=== PATIENT | female | born 1940 | race Caucasian/White ===

== ENCOUNTER 2020-11-20 11:25 | Inpatient (IN) | payer MEDICARE, BC, SELFPAY ==
[2020-11-20 11:31] VITALS: BP 184/96; PULSE 84; RESP 18; TEMP 36.7; O2SAT 100; BMI 22.1
--- NOTE | 2020-11-20 12:37 | ECG_ITS ---
Test Reason : HIGH BLOOD PRESSURE Blood Pressure : / mmHG Vent. Rate : 087 BPM Atrial Rate : 087 BPM P-R Int : 156 ms QRS Dur : 072 ms QT Int : 382 ms P-R-T Axes : 071 009 059 degrees QTc Int : 459 ms Normal sinus rhythm Biatrial enlargement Septal infarct , age undetermined Abnormal ECG When compared with ECG of 14-MAR-2019 16:36, Septal infarct is now Present Referred By: Leela Hall Electronically Signed By:ANGELICA MONTEIRO
--- NOTE | 2020-11-20 12:38 | ED_ITS ---
HPI - Anxiety General Chief Complaint: Anxiety <FIOR Morales - Last Filed: 11/20/20 22:53> Stated Complaint: crisis <FIOR Morales - Last Filed: 11/20/20 22:53> Time Seen by Provider: 11/20/20 12:14 <FIOR Morales - Last Filed: 11/20/20 22:53> Source: patient, family, RN notes reviewed and old records reviewed <FIOR Morales - Last Filed: 11/20/20 22:53> Mode of arrival: ambulatory <FIRO Morales - Last Filed: 11/20/20 22:53> Limitations: no limitations <FIOR Morales - Last Filed: 11/20/20 22:53> History of Present Illness HPI narrative: 80-year-old female here today for on anxiety. Patient has been having increase in anxiety in the past few weeks. She reports to be waking up drenched in sweat feeling anxious. She is afraid that she will hurt her , does not have any plan. Patient has a history of major depression with anxiety. Previously treated with ECT by Dr. Chambers. Last inpatient admission in 2019 with ECT as an inpatient. Patient was discharged home and had outpatient ECTs on till August of 2019. She reports that in 2019 she did not want to come into the hospital because she was afraid of getting COVID. She has not seen any therapist. Was only getting prescribed <FIOR Morales - Last Filed: 11/20/20 22:53> Related Data Home Medications: Previous Rx's Medication Instructions Recorded lorazepam 0.5 mg PO BID PRN #20 tab 11/26/20 quetiapine 25 mg PO BID@0830,1430 30 Days #90 11/26/20 tab quetiapine 150 mg PO BEDTIME 30 Days #90 tab 11/26/20 venlafaxine 300 mg PO DAILY 30 Days #60 cap 11/26/20 <FIOR Morales - Last Filed: 11/20/20 22:53> Allergies/Adverse Reactions: Allergies Allergy/AdvReac Type Severity Reaction Status Date / Time No Known Allergies Allergy Verified 11/20/20 11:36 [No Known Allergies*] <FIOR Morales - Last Filed: 11/20/20 22:53> Review of Systems Review of Systems: Constitutional : No Weight loss, No Fever, No Chills, No Night Sweats, No Fatigue, No Malaise ENT/Mouth : No Hearing loss, No Ear Pain, No Nasal Congestion, No Sinus Pain, No Hoarseness, No sore throat, No Rhinorrhea, No Swallowing Difficulty Eyes: No Eye Pain, No Swelling, No Redness, No Foreign Body, No Discharge, No Vision Changes Cardiovascular : No Chest Pain, No SOB, No Dyspnea on Exertion, No Orthopnea, No Edema, No Palpitations Respiratory : No Cough, No Sputum, No Wheezing, No Smoke Exposure, No Dyspnea Gastrointestinal : No Nausea, No Vomiting, No Diarrhea, No Constipation, No abdominal Pain, No Hematochezia, No Melena Genitourinary : no irregular bleeding, No Dysuria, No Urinary Frequency, No Hematuria, No Urinary Incontinence, No Urgency, No Flank Pain, No Urinary Flow Changes, No Hesitancy Musculoskeletal : No joint pain, No Myalgias, No Joint Swelling Skin : No Skin Lesions, No rash Neuro : No Weakness, No Numbness, No Paresthesias, No Loss of Consciousness, No Dizziness, No Headache Psych : Anxiety/Panic, Depression, No SI/AH/VH, states that wants to hurt her , no plan. No Social Issues, Heme/Lymph: No Bruising, No Bleeding,No Lymphadenopathy Endocrine : No Polyuria, No Polydipsia, No Temperature Intolerance <FIOR Morales - Last Filed: 11/20/20 22:53> Yes all other systems are reviewed and are negative <FIOR Morales - Last Filed: 11/20/20 22:53> [facility] Past Medical History Medical History: Medical History (Updated 12/04/20 @ 00:02 by Mandy Flores) Depression Major depressive disorder, recurrent severe without psychotic features OCD (obsessive compulsive disorder) S/P ECT (electroconvulsive therapy) <FIOR Morales - Last Filed: 11/20/20 22:53> Surgical History: Surgical History No history of previous surgery <AGA Morales-BC - Last Filed: 11/20/20 22:53> Family History Family History: Family History (Updated 11/22/20 @ 16:21 by RONI Villalobos) Mother CHF (congestive heart failure) <SHARONDA MoralesBC - Last Filed: 11/20/20 22:53> Social History Social History: Social History Household Members: Spouse Housing: House Do you presently have visiting nurse or other home services: No service: No Sexual orientation: Straight/Heterosexual <SHARONDA MoralesBC - Last Filed: 11/20/20 22:53> Physical Exam Vital Signs: Vital Signs: Last Vital Signs Temp 97.9 F 11/26/20 06:30 Pulse 64 11/26/20 06:30 Resp 16 11/26/20 06:30 BP 129/58 L 11/26/20 06:30 Pulse Ox 97 11/26/20 06:30 Body Mass Index 22.1 <AGA Morales-BC - Last Filed: 11/20/20 22:53> Vital Signs: Last Vital Signs Temp 97.9 F 11/26/20 06:30 Pulse 64 11/26/20 06:30 Resp 16 11/26/20 06:30 BP 129/58 L 11/26/20 06:30 Pulse Ox 97 11/26/20 06:30 Body Mass Index 22.1 <RONI Saenz - Last Filed: 11/21/20 08:30> Vital Signs: Last Vital Signs Temp 97.9 F 11/26/20 06:30 Pulse 64 11/26/20 06:30 Resp 16 11/26/20 06:30 BP 129/58 L 11/26/20 06:30 Pulse Ox 97 11/26/20 06:30 Body Mass Index 22.1 <Jem Neves MD - Last Filed: 12/23/20 06:19> Const: General: cooperative, healthy appearing and comfortable <Leela D Isabel, SURFACE PLATE INSPECTOR-BC - Last Filed: 11/20/20 22:53> Nutritional Appearance: average body habitus <Leela Sarai Hall SURFACE PLATE INSPECTOR-BC - Last Filed: 11/20/20 22:53> Orientation/consciousness: patient oriented x3 <LeelaSARKIS TylerP-BC - Last Filed: 11/20/20 22:53> Limitations: no limitations <Leela Sarai Pryoro SURFACE PLATE INSPECTOR-BC - Last Filed: 11/20/20 22:53> HENMT: Head: Yes normal to inspection <Leela D Isabel, SURFACE PLATE INSPECTOR-BC - Last Filed: 11/20/20 22:53> Ears: hearing grossly normal bilaterally <Leela D Isabel, SURFACE PLATE INSPECTOR-BC - Last Filed: 11/20/20 22:53> General nose exam: Normal external nose present <Leela D Isabel SURFACE PLATE INSPECTOR-BC - Last Filed: 11/20/20 22:53> Face and sinus: Yes normal facial exam <Leelabrunilda Hall SURFACE PLATE INSPECTOR-BC - Last Filed: 11/20/20 22:53> Mouth: Normal oral and palatal mucosa present <Leela D Isabel, SURFACE PLATE INSPECTOR-BC - Last Filed: 11/20/20 22:53> Throat: Yes posterior oropharynx normal <Leela Sarai Hall, SURFACE PLATE INSPECTOR-BC - Last Filed: 11/20/20 22:53> Eyes: General: appearance normal, both eyes and all related structures <Leela Sarai Hall SURFACE PLATE INSPECTOR-BC - Last Filed: 11/20/20 22:53> Eyelids: Yes eyelids normal <Leela D Isabel, SURFACE PLATE INSPECTOR-BC - Last Filed: 11/20/20 22:53> Conjunctivae: conjunctivae normal <Leela D Isabel, SURFACE PLATE INSPECTOR-BC - Last Filed: 11/20/20 22:53> Sclerae: sclerae normal <Leela D Isabel, SURFACE PLATE INSPECTOR-BC - Last Filed: 11/20/20 22:53> Pupils: Equal, round and reactive pupils present <Leela D Isabel, SURFACE PLATE INSPECTOR-BC - Last Filed: 11/20/20 22:53> Neck: Neck: Yes normal visual inspection, Yes full ROM, Yes no lym phadenopathy, Yes trachea midline and Yes supple <AGA Morales-BC - Last Filed: 11/20/20 22:53> Thyroid: Thyroid normal <AGA Morales-BC - Last Filed: 11/20/20 22:53> Lymphatic: no lymphadenopathy noted <AGA Morales-BC - Last Filed: 11/20/20 22:53> Chest: Chest palpation & inspection: normal inspection of the chest <AGA Morales-BC - Last Filed: 11/20/20 22:53> Resp: Effort & Inspection: normal respiratory effort and able to speak in complete sentences <AGA Morales-BC - Last Filed: 11/20/20 22:53> Auscultation: clear to auscultation bilaterally <AGA Morales-BC - Last Filed: 11/20/20 22:53> Cardio: Jugular venous distension: no JVD <AGA Morales-BC - Last Filed: 11/20/20 22:53> Rate: regular rate <AGA Morales-BC - Last Filed: 11/20/20 22:53> Rhythm: regular rhythm <AGA Morales-BC - Last Filed: 11/20/20 22:53> Heart sounds: S1 normal heart sound present, S2 normal heart sound present, no gallops, no murmurs and no rubs <AGA Morales-BC - Last Filed: 11/20/20 22:53> Peripheral pulses: Peripheral pulses 2+ throughout <SARKIS MoralesP-BC - Last Filed: 11/20/20 22:53> GI: Inspection: Yes normal to inspection and No distended <AGA Morales-BC - Last Filed: 11/20/20 22:53> Palpation (GI): No hepatosplenomegaly present and No Rebound tenderness present <SARKIS MoralesP-BC - Last Filed: 11/20/20 22:53> Percussion: Yes normal to percussion <Leela D Isabel, SURFACE PLATE INSPECTOR-BC - Last Filed: 11/20/20 22:53> Auscultation: normal bowel sounds <Leela Hall SURFACE PLATE INSPECTOR-BC - Last Filed: 11/20/20 22:53> Back/Spine/Pelvis: Cervical Spine: cervical ROM normal and No cervical muscular tenderness <SARKIS MoralesP-BC - Last Filed: 11/20/20 22:53> Thoracic/Lumbar Spine: thoracic and lumbar spine normal to inspection <SARKIS MoralesP-BC - Last Filed: 11/20/20 22:53> Skin: General skin exam: no rashes or lesions noted, elasticity normal and turgor normal <SARKIS MoralesP-BC - Last Filed: 11/20/20 22:53> Neuro: General: patient oriented x3 <SARKIS MoralesP-BC - Last Filed: 11/20/20 22:53> Cranial nerves: Yes Equal, round and reactive pupils present <SARKIS MoralesP-BC - Last Filed: 11/20/20 22:53> Extrem: General: Yes normal to inspection, Yes full ROM and Yes capillary refill normal <SARKIS MoralesP-BC - Last Filed: 11/20/20 22:53> Psych: Appearance: grossly normal <AGA Morales-BC - Last Filed: 11/20/20 22:53> Mental Status: mental status grossly normal <Leela Pryordinesh SURFACE PLATE INSPECTOR-BC - Last Filed: 11/20/20 22:53> Speech and movement: Normal speech and movement present <Leela Hall SURFACE PLATE INSPECTOR-BC - Last Filed: 11/20/20 22:53> Affect: normal affect <Leela Pryordinesh SURFACE PLATE INSPECTOR-BC - Last Filed: 11/20/20 22:53> Attitude: cooperative <Leela Pryordinesh SURFACE PLATE INSPECTOR-BC - Last Filed: 11/20/20 22:53> Thought process: Normal thought process present <Leela Pryordinesh SURFACE PLATE INSPECTOR-BC - Last Filed: 11/20/20 22:53> Insight: Good insight present (Psych) <LeelaSHARONDA TylerBC - Last Filed: 11/20/20 22:53> Course Course Course Narrative: 80-year-old female here today for and anxiety. Patient reports that in the last few weeks she has been waking up during the night with severe anxiety, with night sweats. She is severely depressed has thoughts of hurting her however she does not have a plan of how. Patient has a very supportive who is at her bedside. She reports that she had been admitted previously to [facility] and she received inpatient ECT therapy. She states that she had few therapy after being discharged as outpatient. Patient was seen by Dr. Chambers. Her last treatment was in August of 2019. Due to COVID patient was afraid to come into the hospital for more treatment. Patient reports that they were very helpful. Patient denies SI. Denies any chest pain, SOB with or without exertion, PND, presyncope, syncope. Will medically clear her and have [facility] services talked to her about possible treatment. Patient is agreeable to plan of care. Patient cooperative with at the bedside. <FIOR Morales - Last Filed: 11/20/20 22:53> I have reviewed the chart <Jem Neves MD - Last Filed: 12/23/20 06:19> Reevaluation(s) Reevaluation #1: Patient resting. will be going home tonight. Patient will be seen in the morning by Dr. Chambers. Patient denies any suicidal or homicidal thoughts. Cooperative and pleasant. Seen by social work. Denies any CP, abdominal discomfort. Vital signs stable. <FIOR Morales - Last Filed: 11/20/20 22:53> Reevaluation #2: Patient was moved to [facility] to bed 5. Cooperative and agreeable to plan of care requesting mild sedative to help her go to sleep. She received low-dose benzodiazepine earlier this afternoon and did very well with that. She may get another dose tonight to help her sleep. Vital signs continue to be stable, lung sounds clear, neuro is intact. Report given to [facility] MENTAL HEALTH CLINICIAN <FIOR Morales - Last Filed: 11/20/20 22:53> MDM - Anxiety Lab Data Result diagrams: : 11/20/20 13:20 11/20/20 13:20 <Leela Hall, [facility]- - Last Filed: 11/20/20 22:53> Labs: Lab Results 11/20/20 11/20/20 11/20/20 Range/Units 13:20 13:20 19:35 WBC 5.5 (4.8-10.8) X10*3/uL RBC 4.60 (4.20-5.50) X10*6/uL Hgb 13.9 (12.0-16.0) g/dl Hct 40.9 (37-47) % MCV 88.9 (80-98) fL MCH 30.2 (27.0-33.0) pg MCHC 34.0 (31.0-35.0) g/dl RDW 12.5 (11.0-16.0) % Plt Count 201 (160-400) X10*3/uL MPV 10.9 (9.4-12.3) fL Immature Gran % (Auto) 0.2 (0.0-0.4) % Neut % (Auto) 64.1 (45-73) % Lymph % (Auto) 27.8 (20-40) % [place] % (Auto) 6.9 (2-11) % Eos % (Auto) 0.5 (0-4) % Baso % (Auto) 0.5 (0-2) % Lymph # (Auto) 1.5 (1.2-4.9) X10*3/uL [place] # (Auto) 0.4 (0.1-1.2) X10*3/uL Eos # (Auto) 0.0 (0.0-0.4) X10*3/uL Baso # (Auto) 0.0 (0.0-0.2) X10*3/uL Abs Immat Gran (auto) 0.01 (0.00-0.03) X10*3/uL Absolute Neuts (auto) 3.6 (2.0-8.3) X10*3/uL Absolute Nucleated RBC 0.000 (0.0-0.012) X10*3/uL Nucleated RBC % (auto) 0.0 (0.0-0.2) /100WBC Sodium 136 (135-145) mmol/L Potassium 4.0 (3.3-5.1) mmol/L Chloride 101 (96-108) mmol/L Carbon Dioxide 26 (22-29) mmol/L Anion Gap 13 (12-20) BUN 16 (9-16) mg/dL Creatinine 1.05 (0.5-1.4) mg/dL Estim Creat Clear Calc 36.5 Estimated GFR 51 Random Glucose 176 H (60-115) mg/dL Calcium 9.3 (8.4-10.2) mg/dL Salicylates < 5.0 L (15-30) mg/dL Urine Opiates Screen (Not Detect) Acetaminophen < 1 (<30) mcg/mL Ur Barbiturates Screen (Not Detect) Ur Phencyclidine Scrn (Not Detect) Ur Amphetamines Screen (Not Detect) U Benzodiazepines Scrn (Not Detect) Urine Cocaine Screen (Not Detect) U Marijuana (THC) Screen (Not Detect) COVID-19 (FANG) Negative (Negative) COVID-19 Clin Com See Note 11/20/20 Range/Units 19:37 WBC (4.8-10.8) X10*3/uL RBC (4.20-5.50) X10*6/uL Hgb (12.0-16.0) g/dl Hct (37-47) % MCV (80-98) fL MCH (27.0-33.0) pg MCHC (31.0-35.0) g/dl RDW (11.0-16.0) % Plt Count (160-400) X10*3/uL MPV (9.4-12.3) fL Immature Gran % (Auto) (0.0-0.4) % Neut % (Auto) (45-73) % Lymph % (Auto) (20-40) % [place] % (Auto) (2-11) % Eos % (Auto) (0-4) % Baso % (Auto) (0-2) % Lymph # (Auto) (1.2-4.9) X10*3/uL [place] # (Auto) (0.1-1.2) X10*3/uL Eos # (Auto) (0.0-0.4) X10*3/uL Baso # (Auto) (0.0-0.2) X10*3/uL Abs Immat Gran (auto) (0.00-0.03) X10*3/uL Absolute Neuts (auto) (2.0-8.3) X10*3/uL Absolute Nucleated RBC (0.0-0.012) X10*3/uL Nucleated RBC % (auto) (0.0-0.2) /100WBC Sodium (135-145) mmol/L Potassium (3.3-5.1) mmol/L Chloride (96-108) mmol/L Carbon Dioxide (22-29) mmol/L Anion Gap (12-20) BUN (9-16) mg/dL Creatinine (0.5-1.4) mg/dL Estim Creat Clear Calc Estimated GFR Random Glucose (60-115) mg/dL Calcium (8.4-10.2) mg/dL Salicylates (15-30) mg/dL Urine Opiates Screen Not Detected (Not Detect) Acetaminophen (<30) mcg/mL Ur Barbiturates Screen Not Detected (Not Detect) Ur Phencyclidine Scrn Not Detected (Not Detect) Ur Amphetamines Screen Not Detected (Not Detect) U Benzodiazepines Scrn Not Detected (Not Detect) Urine Cocaine Screen Not Detected (Not Detect) U Marijuana (THC) Screen Not Detected (Not Detect) COVID-19 (FANG) (Negative) COVID-19 Clin Com <Leela Hall, SURFACE PLATE INSPECTOR-BC - Last Filed: 11/20/20 22:53> Lab Results 11/20/20 11/20/20 11/20/20 Range/Units 13:20 13:20 19:35 WBC 5.5 (4.8-10.8) X10*3/uL RBC 4.60 (4.20-5.50) X10*6/uL Hgb 13.9 (12.0-16.0) g/dl Hct 40.9 (37-47) % MCV 88.9 (80-98) fL MCH 30.2 (27.0-33.0) pg MCHC 34.0 (31.0-35.0) g/dl RDW 12.5 (11.0-16.0) % Plt Count 201 (160-400) X10*3/uL MPV 10.9 (9.4-12.3) fL Immature Gran % (Auto) 0.2 (0.0-0.4) % Neut % (Auto) 64.1 (45-73) % Lymph % (Auto) 27.8 (20-40) % [place] % (Auto) 6.9 (2-11) % Eos % (Auto) 0.5 (0-4) % Baso % (Auto) 0.5 (0-2) % Lymph # (Auto) 1.5 (1.2-4.9) X10*3/uL [place] # (Auto) 0.4 (0.1-1.2) X10*3/uL Eos # (Auto) 0.0 (0.0-0.4) X10*3/uL Baso # (Auto) 0.0 (0.0-0.2) X10*3/uL Abs Immat Gran (auto) 0.01 (0.00-0.03) X10*3/uL Absolute Neuts (auto) 3.6 (2.0-8.3) X10*3/uL Absolute Nucleated RBC 0.000 (0.0-0.012) X10*3/uL Nucleated RBC % (auto) 0.0 (0.0-0.2) /100WBC Sodium 136 (135-145) mmol/L Potassium 4.0 (3.3-5.1) mmol/L Chloride 101 (96-108) mmol/L Carbon Dioxide 26 (22-29) mmol/L Anion Gap 13 (12-20) BUN 16 (9-16) mg/dL Creatinine 1.05 (0.5-1.4) mg/dL Estim Creat Clear Calc 36.5 Estimated GFR 51 Random Glucose 176 H (60-115) mg/dL Calcium 9.3 (8.4-10.2) mg/dL Salicylates < 5.0 L (15-30) mg/dL Urine Opiates Screen (Not Detect) Acetaminophen < 1 (<30) mcg/mL Ur Barbiturates Screen (Not Detect) Ur Phencyclidine Scrn (Not Detect) Ur Amphetamines Screen (Not Detect) U Benzodiazepines Scrn (Not Detect) Urine Cocaine Screen (Not Detect) U Marijuana (THC) Screen (Not Detect) COVID-19 (FANG) Negative (Negative) COVID-19 Clin Com See Note 11/20/20 Range/Units 19:37 WBC (4.8-10.8) X10*3/uL RBC (4.20-5.50) X10*6/uL Hgb (12.0-16.0) g/dl Hct (37-47) % MCV (80-98) fL MCH (27.0-33.0) pg MCHC (31.0-35.0) g/dl RDW (11.0-16.0) % Plt Count (160-400) X10*3/uL MPV (9.4-12.3) fL Immature Gran % (Auto) (0.0-0.4) % Neut % (Auto) (45-73) % Lymph % (Auto) (20-40) % [place] % (Auto) (2-11) % Eos % (Auto) (0-4) % Baso % (Auto) (0-2) % Lymph # (Auto) (1.2-4.9) X10*3/uL [place] # (Auto) (0.1-1.2) X10*3/uL Eos # (Auto) (0.0-0.4) X10*3/uL Baso # (Auto) (0.0-0.2) X10*3/uL Abs Immat Gran (auto) (0.00-0.03) X10*3/uL Absolute Neuts (auto) (2.0-8.3) X10*3/uL Absolute Nucleated RBC (0.0-0.012) X10*3/uL Nucleated RBC % (auto) (0.0-0.2) /100WBC Sodium (135-145) mmol/L Potassium (3.3-5.1) mmol/L Chloride (96-108) mmol/L Carbon Dioxide (22-29) mmol/L Anion Gap (12-20) BUN (9-16) mg/dL Creatinine (0.5-1.4) mg/dL Estim Creat Clear Calc Estimated GFR Random Glucose (60-115) mg/dL Calcium (8.4-10.2) mg/dL Salicylates (15-30) mg/dL Urine Opiates Screen Not Detected (Not Detect) Acetaminophen (<30) mcg/mL Ur Barbiturates Screen Not Detected (Not Detect) Ur Phencyclidine Scrn Not Detected (Not Detect) Ur Amphetamines Screen Not Detected (Not Detect) U Benzodiazepines Scrn Not Detected (Not Detect) Urine Cocaine Screen Not Detected (Not Detect) U Marijuana (THC) Screen Not Detected (Not Detect) COVID-19 (FANG) (Negative) COVID-19 Clin Com <RONI Saenz - Last Filed: 11/21/20 08:30> Lab Results 11/20/20 11/20/20 11/20/20 Range/Units 13:20 13:20 19:35 WBC 5.5 (4.8-10.8) X10*3/uL RBC 4.60 (4.20-5.50) X10*6/uL Hgb 13.9 (12.0-16.0) g/dl Hct 40.9 (37-47) % MCV 88.9 (80-98) fL MCH 30.2 (27.0-33.0) pg MCHC 34.0 (31.0-35.0) g/dl RDW 12.5 (11.0-16.0) % Plt Count 201 (160-400) X10*3/uL MPV 10.9 (9.4-12.3) fL Immature Gran % (Auto) 0.2 (0.0-0.4) % Neut % (Auto) 64.1 (45-73) % Lymph % (Auto) 27.8 (20-40) % [place] % (Auto) 6.9 (2-11) % Eos % (Auto) 0.5 (0-4) % Baso % (Auto) 0.5 (0-2) % Lymph # (Auto) 1.5 (1.2-4.9) X10*3/uL [place] # (Auto) 0.4 (0.1-1.2) X10*3/uL Eos # (Auto) 0.0 (0.0-0.4) X10*3/uL Baso # (Auto) 0.0 (0.0-0.2) X10*3/uL Abs Immat Gran (auto) 0.01 (0.00-0.03) X10*3/uL Absolute Neuts (auto) 3.6 (2.0-8.3) X10*3/uL Absolute Nucleated RBC 0.000 (0.0-0.012) X10*3/uL Nucleated RBC % (auto) 0.0 (0.0-0.2) /100WBC Sodium 136 (135-145) mmol/L Potassium 4.0 (3.3-5.1) mmol/L Chloride 101 (96-108) mmol/L Carbon Dioxide 26 (22-29) mmol/L Anion Gap 13 (12-20) BUN 16 (9-16) mg/dL Creatinine 1.05 (0.5-1.4) mg/dL Estim Creat Clear Calc 36.5 Estimated GFR 51 Random Glucose 176 H (60-115) mg/dL Calcium 9.3 (8.4-10.2) mg/dL Salicylates < 5.0 L (15-30) mg/dL Urine Opiates Screen (Not Detect) Acetaminophen < 1 (<30) mcg/mL Ur Barbiturates Screen (Not Detect) Ur Phencyclidine Scrn (Not Detect) Ur Amphetamines Screen (Not Detect) U Benzodiazepines Scrn (Not Detect) Urine Cocaine Screen (Not Detect) U Marijuana (THC) Screen (Not Detect) COVID-19 (FANG) Negative (Negative) COVID-19 Clin Com See Note 11/20/20 Range/Units 19:37 WBC (4.8-10.8) X10*3/uL RBC (4.20-5.50) X10*6/uL Hgb (12.0-16.0) g/dl Hct (37-47) % MCV (80-98) fL MCH (27.0-33.0) pg MCHC (31.0-35.0) g/dl RDW (11.0-16.0) % Plt Count (160-400) X10*3/uL MPV (9.4-12.3) fL Immature Gran % (Auto) (0.0-0.4) % Neut % (Auto) (45-73) % Lymph % (Auto) (20-40) % [place] % (Auto) (2-11) % Eos % (Auto) (0-4) % Baso % (Auto) (0-2) % Lymph # (Auto) (1.2-4.9) X10*3/uL [place] # (Auto) (0.1-1.2) X10*3/uL Eos # (Auto) (0.0-0.4) X10*3/uL Baso # (Auto) (0.0-0.2) X10*3/uL Abs Immat Gran (auto) (0.00-0.03) X10*3/uL Absolute Neuts (auto) (2.0-8.3) X10*3/uL Absolute Nucleated RBC (0.0-0.012) X10*3/uL Nucleated RBC % (auto) (0.0-0.2) /100WBC Sodium (135-145) mmol/L Potassium (3.3-5.1) mmol/L Chloride (96-108) mmol/L Carbon Dioxide (22-29) mmol/L Anion Gap (12-20) BUN (9-16) mg/dL Creatinine (0.5-1.4) mg/dL Estim Creat Clear Calc Estimated GFR Random Glucose (60-115) mg/dL Calcium (8.4-10.2) mg/dL Salicylates (15-30) mg/dL Urine Opiates Screen Not Detected (Not Detect) Acetaminophen (<30) mcg/mL Ur Barbiturates Screen Not Detected (Not Detect) Ur Phencyclidine Scrn Not Detected (Not Detect) Ur Amphetamines Screen Not Detected (Not Detect) U Benzodiazepines Scrn Not Detected (Not Detect) Urine Cocaine Screen Not Detected (Not Detect) U Marijuana (THC) Screen Not Detected (Not Detect) COVID-19 (FANG) (Negative) COVID-19 Clin Com <Jem Neves MD - Last Filed: 12/23/20 06:19> Discharge Plan Discharge Clinical Impression: Acute anxiety <FIOR Morales - Last Filed: 11/20/20 22:53> Patient Disposition: Admitted As Inpatient <FIOR Morales - Last Filed: 11/20/20 22:53> Interventions: Admission Worksheet (ED) Last Done: 11/21/20 17:01 <FIOR Morales - Last Filed: 11/20/20 22:53> Discharge Date/Time: 11/21/20 17:00 <Leela Hall, SURFACE PLATE INSPECTOR-BC - Last Filed: 11/20/20 22:53>
[2020-11-20] MEDS: LORazepam 0.5 MG TABLET PO ×2 (12:46→22:12)
[2020-11-20 13:15] VITALS: BP 168/82; PULSE 86; RESP 14; TEMP 36.7; O2SAT 100
[2020-11-20 13:25] LABS: MANUAL DIFF FLAG NO
[2020-11-20 13:27] LABS: Basophils Percent Auto 0.5 % (0-2); Eosinophils Percent Auto 0.5 % (0-4); Hematocrit 40.9 % (37-47); Hemoglobin 13.9 g/dl (12.0-16.0); Imm Gran Abs Auto 0.01 X10*3/uL (0.00-0.03); Imm Gran Pct Auto 0.2 % (0.0-0.4); Lymphocytes Absolute Auto 1.5 X10*3/uL (1.2-4.9); Lymphocytes Percent Auto 27.8 % (20-40); Mean Corpuscular Hemoglobin 30.2 pg (27.0-33.0); Mean Corpuscular Volume 88.9 fL (80-98); Mean Platelet Volume 10.9 fL (9.4-12.3); Monocytes Absolute Auto 0.4 X10*3/uL (0.1-1.2); Monocytes Percent Auto 6.9 % (2-11); Neutrophils Absolute Auto 3.6 X10*3/uL (2.0-8.3); Neutrophils Percent Auto 64.1 % (45-73); Platelet Count 201 X10*3/uL (160-400); Red Cell Distribution Width 12.5 % (11.0-16.0); White Blood Count 5.5 X10*3/uL (4.8-10.8)
[2020-11-20 13:57] LABS: Acetaminophen LAB < 1 mcg/mL (<30); Anion Gap 13 (12-20); Blood Urea Nitrogen 16 mg/dL (9-16); Calcium 9.3 mg/dL (8.4-10.2); Carbon Dioxide 26 mmol/L (22-29); Chloride 101 mmol/L (96-108); Creatinine Clr Calc Pharmacy 36.5; Estimated Glomerular Filt Rate 51; Glucose Random 176 mg/dL (60-115); Salicylate < 5.0 mg/dL (15-30); Sodium 136 mmol/L (135-145)
[2020-11-20 14:28] VITALS: BP 132/84; PULSE 85; RESP 16
[2020-11-20 14:35] VITALS: BP 142/72; PULSE 79; RESP 16; O2SAT 98
[2020-11-20 15:48] VITALS: BP 150/86; PULSE 80; O2SAT 100
[2020-11-20 17:32] VITALS: BP 161/92; PULSE 87; RESP 25; O2SAT 98
[2020-11-20 19:58] LABS: COVID-19 Test Negative (Negative)
[2020-11-20 20:15] LABS: Amphetamine Screen Urine Not Detected (Not Detect); Barbiturates, Urine Not Detected (Not Detect); Benzodiazepines Screen Urine Not Detected (Not Detect); Cannabinoid Screen Urine Not Detected (Not Detect); Cocaine Screen Urine Not Detected (Not Detect); Opiate Screen Urine Not Detected (Not Detect); Phencyclidine Screen Urine Not Detected (Not Detect)
[2020-11-20] MEDS: QUEtiapine Fumarate 100 MG TABLET PO (22:22)
--- NOTE | 2020-11-20 23:29 | MHC.CARE ---
CARE Team is notified by Dr. Kyler Petersen that pt meets criteria for inpatient level of care and will be a direct admit to with plan to start inpt ECT, followed by outpatient ECT. CARE Team meets with pt and to gather additional information regarding presenting problem. Pt has a hx of OCD and depression, which is consistent with current presentation. Pt identifies that over the past three weeks there has been a significant decrease in functioning and increased intrusive negative thoughts. She identifies thoughts about harming her , but has no plan or intent. Thoughts of harming others appear to relate to OCD, as pt identifies feeling like a horrible person and therefore she may harm her . Pt has a hx of similar episodes going as far back as the 1980s. She appears younger then her stated age and is great physical condition according to ED provider. Pt reports significant increase in anxiety with frequent periods throughout the day of feeling terrified. She identifies that prior to these symptoms starting, she was feeling overwhelmed by her obligations, feeling inadequate in her life roles. She has stopped engaging in activities that she used to enjoy, such as baking, and has been isolating herself. Pt states I feel myself going downhill, and identifies that she knows she needs an inpt admission in order to address these symptoms, followed by working on CBT with an outpatient therapist. Pt is currently being seen by Sharon (unknown last name) at [facility] in [place], [place] weekly over the phone. Pt also has an outpatient psychiatrist, Dr. Victor M York also through [facility], and pt states that she has been taking medications as prescribed. Pt states that she has long periods where she functions well and recently went 4 months without needing a therapy appointment. 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 Her is at the bedside and appears to be very kind and supportive. Pt has children, grandchildren and extended family locally, who she sees regularly. Pt identifies some limited social contact due to covid-19 pandemic. She is tearful when discussing how much she is looking forward to hugging her family members. Pt identifies that ECT has been very helpful to her in the past, though she missed her last scheduled ECT appointment October 2019, afraid to come to the hospital during the height of the covid-19 pandemic. Pt has participated in TMS in the past, but did not have a good outcome. Pt also endorsed increased depression and sleep disturbance, no noted change in apatite. Pt states that she has been waking up several times per night in a cold sweat. She denies SI/HI and there are no weapons in the home. Pt appears nervous while in the ED, wringing her hands, and noting that her blood pressure is unusually high. Plan is for pt to remain at [facility] ED while waiting an inpt bed. Dr. Kyler Petersen, who knows the pt well is in agreement with this plan after discussing this presentation. ED provider, Leela Hall, BLAYNE is aware of and in agreement with plan as well. F42 Obsessive Compulsive Disorder F32.9 unspecified depressive disorder
[2020-11-21 06:00] VITALS: BP 151/76; PULSE 79; RESP 18; TEMP 35.8; O2SAT 98
--- NOTE | 2020-11-21 07:09 | PC.NURSE ---
received report from overnight nurse patient appears in no distress at present pt slept with even unlabored breaths
[2020-11-21] MEDS: Venlafaxine HCl ER 75 MG CAP.ER.24H PO (07:52)
[2020-11-21] MEDS: Venlafaxine HCl ER 150 MG CAP.ER.24H PO (07:52)
[2020-11-21 08:31] VITALS: BP 103/60; PULSE 98; RESP 16; TEMP 36.9; O2SAT 98
--- NOTE | 2020-11-21 11:35 | PC.NURSE ---
nurse to nurse report given to M5 in preparation for transition to inpatient unit
[2020-11-21 14:37] VITALS: BP 139/83; PULSE 80; RESP 17; TEMP 35.8; O2SAT 99
[2020-11-21] MEDS: LORazepam 0.5 MG TABLET PO ×2 (16:22→22:47)
[2020-11-21 20:00] VITALS: BP 182/88; PULSE 84; RESP 20; TEMP 36.4; O2SAT 98
[2020-11-21] MEDS: QUEtiapine Fumarate 100 MG TABLET PO (22:47)
[2020-11-22 05:55] VITALS: BP 128/71; PULSE 71; RESP 16; TEMP 37.1; O2SAT 98
[2020-11-22 08:28] LABS: Estimated Average Glucose 114 mg/dL; Hemoglobin A1c % 5.6 %
[2020-11-22 08:58] LABS: Free T4 (Free Thyroxine) 0.97 ng/dL (0.71-1.85); Thyroid Stimulating Hormone 3.26 uIU/mL (0.32-4.0)
[2020-11-22 09:11] LABS: Folate 5.7 ng/mL (> or = 4.0); Vitamin B12 338 pg/mL (200-900)
[2020-11-22] MEDS: QUEtiapine Fumarate 25 MG TABLET PO ×2 (09:54→14:52)
[2020-11-22] MEDS: Venlafaxine HCl ER 150 MG CAP.ER.24H PO (09:54)
[2020-11-22] MEDS: Venlafaxine HCl ER 75 MG CAP.ER.24H PO (09:54)
--- NOTE | 2020-11-22 09:54 | P.HPPS_ITS ---
HPI Chief Complaint: Depression OCD Sources of Information: patient interviewed, chart reviewed and crisis/core team assessment reviewed HPI Subjective Notes: Conditional Voluntary Narrative: The patient is a 80-year-old female who moved to [place] 3 year ago and has a history of depression and OCD at times with psychotic features. She sees Victor M York [facility] in [place] she has a history of good response to ECT and the past had maintenance ECT. Over the past 3 weeks she has had intrusive thoughts and fear that she was going to stab her this began to obsess her she became quite fearful and was not improving over the past 2-3 weeks and eventually became quite agitated and came to [facility]. She was seen in May for a consult regarding maintenance ECT and she seems stable at that time. She has been on Effexor 225 mg a day Seroquel 100 mg a day. She denies any recent trigger or reason why she would have re lapse. Past Psychiatric History: History of psychiatric hospitalizations history of ECT including maintenance ECT in the past in [place] Medical Evaluation Reviewed: Hospitalist Kikaal Pending No acute medical findings were noted patient was noted times to be hypertensive in the emergency room [facility] Medical History (Updated 11/22/20 @ 22:06 by Kyler Chambers MD) Depression Major depressive disorder, recurrent severe without psychotic features OCD (obsessive compulsive disorder) S/P ECT (electroconvulsive therapy) Narrative: Patient denies any significant medical history only on psychiatric medication Surgical History No history of previous surgery Social History: Patient is retired lives with her and [place]. They have good relationship is very supportive and children live near Substance History: none Trauma History: none Diagnostics Vital Signs (24Hr): Vital Signs - 24 hr 11/21/20 14:37 11/21/20 20:00 11/22/20 05:55 Temperature 96.4 F L 97.5 F 98.8 F Pulse Rate 80 84 71 Respiratory Rate 17 20 16 Blood Pressure 139/83 182/88 H 128/71 Pulse Oximetry 99 98 98 Body Mass Index 22.1 Labs Results: 11/20/20 13:20 11/20/20 13:20 Labs: Laboratory Results - last 48 hr 11/20/20 11/20/20 11/20/20 13:20 13:20 19:35 WBC 5.5 RBC 4.60 Hgb 13.9 Hct 40.9 MCV 88.9 MCH 30.2 MCHC 34.0 RDW 12.5 Plt Count 201 MPV 10.9 Immature Gran % (Auto) 0.2 Neut % (Auto) 64.1 Lymph % (Auto) 27.8 [place] % (Auto) 6.9 Eos % (Auto) 0.5 Baso % (Auto) 0.5 Lymph # (Auto) 1.5 [place] # (Auto) 0.4 Eos # (Auto) 0.0 Baso # (Auto) 0.0 Abs Immat Gran (auto) 0.01 Absolute Neuts (auto) 3.6 Absolute Nucleated RBC 0.000 Nucleated RBC % (auto) 0.0 Sodium 136 Potassium 4.0 Chloride 101 Carbon Dioxide 26 Anion Gap 13 BUN 16 Creatinine 1.05 Estim Creat Clear Calc 36.5 Estimated GFR 51 Random Glucose 176 H Estimat Average Glucose Hemoglobin A1c % Calcium 9.3 Vitamin B12 Folate TSH Free T4 Salicylates < 5.0 L Urine Opiates Screen Acetaminophen < 1 Ur Barbiturates Screen Ur Phencyclidine Scrn Ur Amphetamines Screen U Benzodiazepines Scrn Urine Cocaine Screen U Marijuana (THC) Screen COVID-19 (FANG) Negative COVID-19 Clin Com See Note 11/20/20 11/22/20 11/22/20 19:37 07:56 07:56 WBC RBC Hgb Hct MCV MCH MCHC RDW Plt Count MPV Immature Gran % (Auto) Neut % (Auto) Lymph % (Auto) [place] % (Auto) Eos % (Auto) Baso % (Auto) Lymph # (Auto) [place] # (Auto) Eos # (Auto) Baso # (Auto) Abs Immat Gran (auto) Absolute Neuts (auto) Absolute Nucleated RBC Nucleated RBC % (auto) Sodium Potassium Chloride Carbon Dioxide Anion Gap BUN Creatinine Estim Creat Clear Calc Estimated GFR Random Glucose Estimat Average Glucose 114 Hemoglobin A1c % 5.6 Calcium Vitamin B12 338 Folate 5.7 TSH Free T4 Salicylates Urine Opiates Screen Not Detected Acetaminophen Ur Barbiturates Screen Not Detected Ur Phencyclidine Scrn Not Detected Ur Amphetamines Screen Not Detected U Benzodiazepines Scrn Not Detected Urine Cocaine Screen Not Detected U Marijuana (THC) Screen Not Detected COVID-19 (FANG) COVID-[employer] Clin Com 11/22/20 07:56 WBC RBC Hgb Hct MCV MCH MCHC RDW Plt Count MPV Immature Gran % (Auto) Neut % (Auto) Lymph % (Auto) [place] % (Auto) Eos % (Auto) Baso % (Auto) Lymph # (Auto) [place] # (Auto) Eos # (Auto) Baso # (Auto) Abs Immat Gran (auto) Absolute Neuts (auto) Absolute Nucleated RBC Nucleated RBC % (auto) Sodium Potassium Chloride Carbon Dioxide Anion Gap BUN Creatinine Estim Creat Clear Calc Estimated GFR Random Glucose Estimat Average Glucose Hemoglobin A1c % Calcium Vitamin B12 Folate TSH 3.26 Free T4 0.97 Salicylates Urine Opiates Screen Acetaminophen Ur Barbiturates Screen Ur Phencyclidine Scrn Ur Amphetamines Screen U Benzodiazepines Scrn Urine Cocaine Screen U Marijuana (THC) Screen COVID-19 (FANG) COVID-19 Clin Com Meds/Allergies Meds Home Medications Acetaminophen (Acetaminophen 325 Mg Tablet) 650 mg PO Q6H PRN PRN Reason: Headache/Pain Mild Scale (1-3) Al Hydroxide/Mg Hydroxide (Magnesium Hydrox/Alum Hydrox 30 Ml Oral.Susp) 30 ml PO Q6H PRN PRN Reason: Heartburn/Nausea Lorazepam (Lorazepam 0.5 Mg Tablet) 0.5 mg PO Q6H PRN PRN Reason: anxiety Last Admin: 11/21/20 22:47 Dose: 0.5 mg Documented by: Magnesium Hydroxide (Milk Of Magnesia 30 Ml Oral.Susp) 30 ml PO DAILY PRN PRN Reason: Constipation Quetiapine Fumarate (Quetiapine Fumarate 50 Mg Tablet) 150 mg PO BEDTIME [facility] Last Admin: 11/22/20 20:56 Dose: 150 mg Documented by: Quetiapine Fumarate (Quetiapine Fumarate 25 Mg Tablet) 25 mg PO BID@0830,1430 [facility] Last Admin: 11/22/20 14:52 Dose: 25 mg Documented by: Trazodone HCl (Trazodone Hcl 50 Mg Tablet) 50 mg PO BEDTIME PRN PRN Reason: Insomnia Venlafaxine HCl (Venlafaxine Hcl Er 75 Mg Cap.Er.24h) 75 mg PO DAILY [facility] Last Admin: 11/22/20 09:54 Dose: 75 mg Documented by: Venlafaxine HCl (Venlafaxine Hcl Er 150 Mg Cap.Er.24h) 150 mg PO DAILY [facility] Last Admin: 11/22/20 09:54 Dose: 150 mg Documented by: Allergies Allergies Allergy/AdvReac Type Severity Reaction Status Date / Time No Known Allergies Allergy Verified 11/20/20 11:36 [No Known Allergies*] Mental Status Exam Mental Status Exam Patient Appearance: Appropriate Patient Orientation: Person, Place, Time and Situation Level of Consciousness: Awake Patient Behavior: Appropriate and Cooperative Mood Description: Depressed, Anxious and Apprehensive Affect Description: Constricted, Depressed, Anxious and Apprehensive Patient Cognition Impaired: No Speech Pattern: Clear Memory Description: Intact Hallucinations: None Delusions: Not Present Thought Process: Racing and Rumination Thought Content: positive for Obsessional Thoughts, positive for Preoccupation and negative for Suicidal Ideation Depressive Symptoms: Increased Anxiety and Insomnia Abnormal Motor Activity Signs and Symptoms: Restlessness Judgement and Insight: Patient with with intrusive ruminations that she might harm her fearful that she would act on this difficulty seeing it as obsessional thought no impulse no plan no intent history session thinking Assessment & Plan Assessment & Plan (1) Major depressive disorder, recurrent severe without psychotic features: Status: Acute Code(s): F33.2 - Major depressive disorder, recurrent severe without psychotic features (2) OCD (obsessive compulsive disorder): Status: Acute Qualifiers: Obsessive-compulsive disorder type: unspecified Qualified Code(s): F42.9 - Obsessive-compulsive disorder, unspecified Code(s): F42.9 - Obsessive-compulsive disorder, unspecified (3) Abnormal finding on EKG: Status: Acute Code(s): R94.31 - Abnormal electrocardiogram [ECG] [EKG] Assessment and Plan: Patient admitted with severe anxiety relapse and depression OCD. Increase Seroquel 25 b.i.d. 150 at bedtime and 25 mg p.r.n.. EKG question of anterior septal [place] patient was admitted with intention of ECT. Denies any history of chest pain shortness of breath will get medical evaluation and cardiology evaluation. Monitor response to supported in medication changes consider ECT depending on medical evaluation Patient educated on: diagnosis, medication risk/benefits, ECT and medical condition Informed Consent: understands Reason for continued inpatient stay Substantial Risk for: harm to others, inability to function and rapid decompensation
--- NOTE | 2020-11-22 16:17 | P.CONIM_ITS ---
History of Present Illness Data of Consult Service Date: 11/22/20 Requesting physician: Kyler Chambers Primary Care Provider: Unknown Physician HPI Reason for consult: Evaluation for ECT This is a 80-year-old female with history of anxiety who was admitted to the hospital for inpatient ECT. She has undergone ECT in the past with good effect. During the COVID pandemic she had been concerned to come into the hospital and therefore has been treated medically for the past year or so. Due to increasing symptom she made the decision to return to ECT treatment. Patient denies any chest pain, palpitations, shortness of breath. She is able to go on walks and perform yoga workouts with out any dyspnea or chest pain. CBC and BMP reviewed and within normal limits. EKG showing biatrial enlargement otherwise no acute ischemic changes, appear similar to previous. Review of Systems Review of Systems: Yes all other systems are reviewed and are negative Constitutional: Constitutional: Denies chills and Denies fever(s) Cardiovascular: Cardiovascular: Denies chest pain Respiratory: Respiratory: Denies cough Gastrointestinal: Gastrointestinal: Denies abdominal pain [facility] Medical History (Updated 11/22/20 @ 16:22 by RONI Villalobos) Depression S/P ECT (electroconvulsive therapy) Functional capacity: independent ambulation Family History (Updated 11/22/20 @ 16:21 by RONI Villalobos) Mother CHF (congestive heart failure) Family history: reviewed and not pertinent Surgical History No history of previous surgery Social History Household Members: Spouse Housing: House Do you presently have visiting nurse or other home services: No Smoking Status: Never smoker Smoked in Last 30 Days: No Use of substances other than those prescribed or required for medical reasons: No Currently Displaying Signs/Symptoms of Drug Intoxication Withdrawal: No Have you been hit, kicked, punched, or otherwise hurt by someone within the past year? If so, by whom?: No Do you feel safe in your current relationship?: Yes Is there a partner from a previous relationship who is making you feel unsafe now?: No Are you made to feel afraid or neglected: No Spiritual Healthcare Practices: Yoga Islam Healthcare Practices: Is a member of a [employer] meeting Cultural Healthcare Practices: Semi vegetarian Advance Directives: Yes Advance Directives Information Provided: Yes Advance Directives on File: No Do you have thoughts of harming others: None Do you have a plan to hurt others: No Plan service: No Sexual orientation: Straight/Heterosexual Meds Allergies Allergy/AdvReac Type Severity Reaction Status Date / Time No Known Allergies Allergy Verified 11/20/20 11:36 [No Known Allergies*] Active Medications: Current Medications Generic Name Dose Route Start Last Admin Trade Name Freq PRN Reason Stop Dose Admin Acetaminophen 650 mg 11/21/20 21:16 Acetaminophen 325 Mg Tablet PO Q6H PRN Headache/Pain Mild Scale (1-3) Al Hydroxide/Mg Hydroxide 30 ml 11/21/20 21:16 Magnesium Hydrox/Alum Hydrox 30 Ml Oral.Susp PO Q6H PRN Heartburn/Nausea Lorazepam 0.5 mg 11/21/20 16:16 11/21/20 22:47 Lorazepam 0.5 Mg Tablet PO 0.5 mg Q6H PRN Administration anxiety Magnesium Hydroxide 30 ml 11/21/20 21:16 Milk Of Magnesia 30 Ml Oral.Susp PO DAILY PRN Constipation Quetiapine Fumarate 150 mg 11/22/20 21:00 Quetiapine Fumarate 50 Mg Tablet PO BEDTIME DENISSE Quetiapine Fumarate 25 mg 11/22/20 09:25 11/22/20 14:52 Quetiapine Fumarate 25 Mg Tablet PO 25 mg BID@0830,1430 DENISSE Administration Trazodone HCl 50 mg 11/21/20 21:16 Trazodone Hcl 50 Mg Tablet PO BEDTIME PRN Insomnia Venlafaxine HCl 75 mg 11/21/20 09:00 11/22/20 09:54 Venlafaxine Hcl Er 75 Mg Cap.Er.24h PO 75 mg DAILY DENISSE Administration Venlafaxine HCl 150 mg 11/21/20 09:00 11/22/20 09:54 Venlafaxine Hcl Er 150 Mg Cap.Er.24h PO 150 mg DAILY DENISSE Administration Home Medications Medication Instructions Recorded Confirmed Last Taken Type quetiapine 100 mg PO BEDTIME PRN 11/20/20 11/20/20 Unknown History venlafaxine 75 mg PO DAILY 11/20/20 11/20/20 Unknown History venlafaxine 150 mg PO DAILY 11/20/20 11/20/20 Unknown History Physical Exam Vital Signs and Narrative: Vital Signs: Last Vital Signs Temp 98.8 F 11/22/20 05:55 Pulse 71 11/22/20 05:55 Resp 16 11/22/20 05:55 BP 128/71 11/22/20 05:55 Pulse Ox 98 11/22/20 05:55 Body Mass Index 22.1 Const: Nutritional Appearance: well nourished Orientation/consciousness: patient oriented x3 HENMT: Head: Yes normocephalic and Yes atraumatic Eyes: Sclerae: sclerae normal Chest: Chest palpation & inspection: normal inspection of the chest Resp: Effort & Inspection: normal respiratory effort and no respiratory distress Auscultation: clear to auscultation bilaterally Cardio: Rate: regular rate Rhythm: regular rhythm Neuro: General: patient oriented x3 Cranial nerves: Yes CN's II-XII intact bilaterally and Yes Bilaterally intact EOM present Extrem: Other: no leg edema Results Labs CBC and Chem 7: 11/20/20 13:20 11/20/20 13:20 Labs: Laboratory Results - last 24 hr 11/22/20 11/22/20 11/22/20 07:56 07:56 07:56 Estimat Average Glucose 114 Hemoglobin A1c % 5.6 Vitamin B12 338 Folate 5.7 TSH 3.26 Free T4 0.97 Assessment and Plan (1) Depression: Status: Acute This is a 80-year-old female with history of depression who was admitted to the hospital for ECT treatment. Patient has no history of cardiopulmonary disease. Good functional capacity. EKG with no ischemic changes. Lab work reviewed and unremarkable. There is no obvious contraindication to proceeding with ECT at this time. Thank you for allowing us to participate in the care of this patient. Attending: Dr. Robles
[2020-11-22 18:00] VITALS: BP 174/84; PULSE 79; TEMP 36.4
[2020-11-22] MEDS: QUEtiapine Fumarate 50 MG TABLET 150 MG PO (20:56)
[2020-11-23 00:01] VITALS: BP 148/75; PULSE 78
[2020-11-23 06:00] VITALS: BP 130/75; PULSE 84; RESP 18; TEMP 36.4; O2SAT 97
--- NOTE | 2020-11-23 08:34 | P.PNPSI_ITS ---
Subjective Subjective Date of Service: 11/24/20 Reason For Visit: Depression OCD Interim History: Chart reviewed; case discussed with team. Vitals reviewed: WnL pt reports she's depressed and struggling with intrusive thoughts that she's not a good mother or . She explains her recent hx with obsessive thoughts that she'd stab her and although no plans or intent or desire, she worried he was at risk. Pt says this has happened before and that ECT has worked. She very much hopes she can start ECT on Wednesday. pt spending time in [place], but not interacting much with others Mental Status Exam Mental Status Exam Narrative: Appearance: Appropriate, well groomed Patient Orientation: Person, Place, Time and Situation Level of Consciousness: Awake Patient Behavior: Appropriate and Cooperative Mood Description: Depressed, Anxious and Apprehensive Affect Description: Congruent Patient Cognition Impaired: No Speech Pattern: Clear Memory Description: Intact Hallucinations: None Delusions: Not Present Thought Process: linear, logical and goal directed Thought Content: positive for Obsessional Thoughts, positive for Preoccupation and negative for Suicidal Ideation Depressive Symptoms: Increased Anxiety and Insomnia no psychomotor agitation/retardation Judgement and Insight: fair Diagnostics Vital Signs (24Hr): Vital Signs - 24 hr 11/22/20 18:00 11/23/20 00:01 11/23/20 06:00 Temperature 97.6 F 97.5 F Pulse Rate 79 78 84 Respiratory Rate 18 Blood Pressure 174/84 H 148/75 H 130/75 Pulse Oximetry 97 Body Mass Index 22.1 Labs Results: 11/20/20 13:20 11/20/20 13:20 Labs: Laboratory Results - last 48 hr 11/22/20 11/22/20 11/22/20 07:56 07:56 07:56 Estimat Average Glucose 114 Hemoglobin A1c % 5.6 Vitamin B12 338 Folate 5.7 TSH 3.26 Free T4 0.97 Medications Medications Current Medications Generic Name Dose Route Start Last Admin Trade Name Freq PRN Reason Stop Dose Admin Acetaminophen 650 mg 11/21/20 21:16 Acetaminophen 325 Mg Tablet PO Q6H PRN Headache/Pain Mild Scale (1-3) Al Hydroxide/Mg Hydroxide 30 ml 11/21/20 21:16 Magnesium Hydrox/Alum Hydrox 30 Ml Oral.Susp PO Q6H PRN Heartburn/Nausea Lorazepam 0.5 mg 11/21/20 16:16 11/21/20 22:47 Lorazepam 0.5 Mg Tablet PO 0.5 mg Q6H PRN Administration anxiety Magnesium Hydroxide 30 ml 11/21/20 21:16 Milk Of Magnesia 30 Ml Oral.Susp PO DAILY PRN Constipation Quetiapine Fumarate 150 mg 11/22/20 21:00 11/22/20 20:56 Quetiapine Fumarate 50 Mg Tablet PO 150 mg BEDTIME DENISSE Administration Quetiapine Fumarate 25 mg 11/22/20 09:25 11/22/20 14:52 Quetiapine Fumarate 25 Mg Tablet PO 25 mg BID@0830,1430 DENISSE Administration Trazodone HCl 50 mg 11/21/20 21:16 Trazodone Hcl 50 Mg Tablet PO BEDTIME PRN Insomnia Venlafaxine HCl 75 mg 11/21/20 09:00 11/22/20 09:54 Venlafaxine Hcl Er 75 Mg Cap.Er.24h PO 75 mg DAILY DENISSE Administration Venlafaxine HCl 150 mg 11/21/20 09:00 11/22/20 09:54 Venlafaxine Hcl Er 150 Mg Cap.Er.24h PO 150 mg DAILY DENISSE Administration Allergies Allergies Allergy/AdvReac Type Severity Reaction Status Date / Time No Known Allergies Allergy Verified 11/20/20 11:36 [No Known Allergies*] Assessment & Plan Assessment & Plan (1) Major depressive disorder, recurrent severe without psychotic features: Status: Acute Code(s): F33.2 - Major depressive disorder, recurrent severe without psychotic features (2) OCD (obsessive compulsive disorder): Qualifiers: Obsessive-compulsive disorder type: unspecified Qualified Code(s): F42 .9 - Obsessive-compulsive disorder, unspecified Status: Acute Code(s): F42.9 - Obsessive-compulsive disorder, unspecified (3) Abnormal finding on EKG: Status: Acute Code(s): R94.31 - Abnormal electrocardiogram [ECG] [EKG] Assessment and Plan: Patient admitted with severe anxiety relapse and depression OCD. pt depressed and with continued obsessive, intrusive thoughts. Has insight and knows diagnosis. Hoping for ECT on wednesday. No changes to current tx plan awaiting medical/cardiac clearance for ECT Increase Seroquel 25 b.i.d. 150 at bedtime and 25 mg p.r.n.. EKG question of anterior septal [place] patient was admitted with intention of ECT. Denies any history of chest pain shortness of breath will get medical evaluation and cardiology evaluation. Monitor response to supported in medication changes consider ECT depending on medical evaluation Greater than 50% of the session was spent on counseling and/or coordination of care Reason for contiued inpatient stay Substantial Risk for: med/psych decompensation
[2020-11-23] MEDS: QUEtiapine Fumarate 25 MG TABLET PO ×2 (08:39→13:26)
[2020-11-23] MEDS: Venlafaxine HCl ER 150 MG CAP.ER.24H PO (08:39)
[2020-11-23] MEDS: Venlafaxine HCl ER 75 MG CAP.ER.24H PO (08:39)
[2020-11-23] MEDS: LORazepam 0.5 MG TABLET PO (17:09)
[2020-11-23] MEDS: QUEtiapine Fumarate 50 MG TABLET 150 MG PO (20:57)
[2020-11-23 20:59] VITALS: BP 139/71; PULSE 71; TEMP 36.4; O2SAT 100
[2020-11-24 06:00] VITALS: BP 107/56; PULSE 88; RESP 16; TEMP 36.3; O2SAT 95
[2020-11-24] MEDS: LORazepam 0.5 MG TABLET PO (06:40)
[2020-11-24] MEDS: Venlafaxine HCl ER 150 MG CAP.ER.24H PO (08:18)
[2020-11-24] MEDS: Venlafaxine HCl ER 75 MG CAP.ER.24H PO (08:18)
[2020-11-24] MEDS: QUEtiapine Fumarate 25 MG TABLET PO ×2 (08:18→14:49)
--- NOTE | 2020-11-24 11:23 | HO.PSYCHPN ---
Subjective Subjective Date of Service: 11/24/20 Reason For Visit: Depression OCD Interim History: Chart reviewed; case discussed with team. Vitals reviewed: mild hypotension pt friendly, pleasant, calm and cooperative she remains w/ depression and obsessive thoughts about being a bad , mother, person Cardiology wants Echo before ECT so tx will be postoned wednesday. Pt inquired about TMS which she had a few years ago and said it was successful. She will discuss with Dr. Chambers on Wednesday. Mental Status Exam Mental Status Exam Narrative: Appropriate, well groomed Patient Orientation: Person, Place, Time and Situation Level of Consciousness: Awake Patient Behavior: Appropriate and Cooperative Mood Description: Depressed, Anxious and Apprehensive Affect Description: Congruent Patient Cognition Impaired: No Speech Pattern: Clear Memory Description: Intact Hallucinations: None Delusions: Not Present Thought Process: linear, logical and goal directed Thought Content: positive for Obsessional Thoughts, positive for Preoccupation and negative for Suicidal Ideation Depressive Symptoms: Increased Anxiety and Insomnia no psychomotor agitation/retardation Judgement and Insight: fair Diagnostics Vital Signs (24Hr): Vital Signs - 24 hr 11/23/20 20:59 11/24/20 06:00 Temperature 97.6 F 97.4 F Pulse Rate 71 88 Respiratory Rate 16 Blood Pressure 139/71 107/56 L Pulse Oximetry 100 95 Body Mass Index 22.1 Labs Results: 11/20/20 13:20 11/20/20 13:20 Medications Medications Current Medications Generic Name Dose Route Start Last Admin Trade Name Freq PRN Reason Stop Dose Admin Acetaminophen 650 mg 11/21/20 21:16 Acetaminophen 325 Mg Tablet PO Q6H PRN Headache/Pain Mild Scale (1-3) Al Hydroxide/Mg Hydroxide 30 ml 11/21/20 21:16 Magnesium Hydrox/Alum Hydrox 30 Ml Oral.Susp PO Q6H PRN Heartburn/Nausea Lorazepam 0.5 mg 11/21/20 16:16 11/24/20 06:40 Lorazepam 0.5 Mg Tablet PO 0.5 mg Q6H PRN Administration anxiety Magnesium Hydroxide 30 ml 11/21/20 21:16 Milk Of Magnesia 30 Ml Oral.Susp PO DAILY PRN Constipation Quetiapine Fumarate 150 mg 11/22/20 21:00 11/23/20 20:57 Quetiapine Fumarate 50 Mg Tablet PO 150 mg BEDTIME DENSISE Administration Quetiapine Fumarate 25 mg 11/22/20 09:25 11/24/20 08:18 Quetiapine Fumarate 25 Mg Tablet PO 25 mg BID@0830,1430 DENISSE Administration Trazodone HCl 50 mg 11/21/20 21:16 Trazodone Hcl 50 Mg Tablet PO BEDTIME PRN Insomnia Venlafaxine HCl 75 mg 11/21/20 09:00 11/24/20 08:18 Venlafaxine Hcl Er 75 Mg Cap.Er.24h PO 75 mg DAILY DENISSE Administration Venlafaxine HCl 150 mg 11/21/20 09:00 11/24/20 08:18 Venlafaxine Hcl Er 150 Mg Cap.Er.24h PO 150 mg DAILY DENISSE Administration Allergies Allergies Allergy/AdvReac Type Severity Reaction Status Date / Time No Known Allergies Allergy Verified 11/20/20 11:36 [No Known Allergies*] Assessment & Plan Assessment & Plan (1) Major depressive disorder, recurrent severe without psychotic features: Status: Acute Code(s): F33.2 - Major depressive disorder, recurrent severe without psychotic features (2) OCD (obsessive compulsive disorder): Qualifiers: Obsessive-compulsive disorder type: unspecified Qualified Code(s): F42.9 - Obsessive-compulsive disorder, unspecified Status: Acute Code(s): F42.9 - Obsessive-compulsive disorder, unspecified (3) Abnormal finding on EKG: Status: Acute Code(s): R94.31 - Abnormal electrocardiogram [ECG] [EKG] Assessment and Plan: Patient admitted with severe anxiety relapse and depression OCD. pt depressed and with continued obsessive, intrusive thoughts. Has insight and knows diagnosis. ECT held until cardiac echo scheduled for Wednesday. Pt will discuss possibility of TMS w/ Dr. Chambers Otherwise, no change to tx plan Hoping for ECT on wednesday. No changes to current tx plan Increase Seroquel 25 b.i.d. 150 at bedtime and 25 mg p.r.n.. EKG question of anterior septal HI patient was admitted with intention of ECT. Denies any history of chest pain shortness of breath will get medical evaluation and cardiology evaluation. Monitor response to supported in medication changes consider ECT depending on medical evaluation Greater than 50% of the session was spent on counseling and/or coordination of care Reason for contiued inpatient stay Substantial Risk for: med/psych decompensation
--- NOTE | 2020-11-24 11:38 | PM.CNCAR ---
History of Present Illness History of Present Illness Date of Service: 11/24/20 Consult reason: pre-op evaluation Chief complaint: Depression OCD Narrative: This is a cardiology consultation regarding preoperative evaluation for ECT therapy. Patient denies any history of coronary disease myocardial infarction or any other cardiac issues in the past. Within limits of her activity, she has not noticed any anginal-type chest pains or shortness of breath or in fact any other cardiac complaints. She is not a known hypertensive but blood pressure was high upon arrival to the ER but seems to be normal range now. Otherwise no major comorbidities. Currently admitted for depression and plan for ECT. EKG was noted to be abnormal and hence we have been asked to see her. Review of Systems Review of Systems: Yes all other systems are reviewed and are negative Cardiovascular: Cardiovascular: Reports as per HPI, Reports no additional cardiovascular complaints, Denies acrocyanosis, Denies cool extremities, Denies painful fingertips, Denies chest pain, Denies chest pain at rest, Denies diaphoresis, Denies syncope, Denies irregular heart rhythm, Denies claudication, Denies leg edema, Denies lightheadedness, Denies palpitations and Denies dyspnea Respiratory: Respiratory: Denies dyspnea Neurologic: Denies syncope Endocrine: Endocrine: Denies palpitations PMFSH Past Medical History Medical History (Updated 11/24/20 @ 11:41 by Arnoldo Arrieta MD) Depression Major depressive disorder, recurrent severe without psychotic features OCD (obsessive compulsive disorder) S/P ECT (electroconvulsive therapy) Functional capacity: independent ambulation Family History Family History (Updated 11/22/20 @ 16:21 by RONI Villalobos) Mother CHF (congestive heart failure) Family history: reviewed and not pertinent Surgical History Surgical History No history of previous surgery Social History Social History Household Members: Spouse Housing: House Do you presently have visiting nurse or other home services: No Smoking Status: Never smoker Smoked in Last 30 Days: No Use of substances other than those prescribed or required for medical reasons: No Currently Displaying Signs/Symptoms of Drug Intoxication Withdrawal: No Have you been hit, kicked, punched, or otherwise hurt by someone within the past year? If so, by whom?: No Do you feel safe in your current relationship?: Yes Is there a partner from a previous relationship who is making you feel unsafe now?: No Are you made to feel afraid or neglected: No Spiritual Healthcare Practices: Yoga Anabaptism Healthcare Practices: Is a member of a [employer] meeting Cultural Healthcare Practices: Semi vegetarian Advance Directives: Yes Advance Directives Information Provided: Yes Advance Directives on File: No Do you have thoughts of harming others: None Do you have a plan to hurt others: No Plan service: No Sexual orientation: Straight/Heterosexual Meds Allergies Allergy/AdvReac Type Severity Reaction Status Date / Time No Known Allergies Allergy Verified 11/20/20 11:36 [No Known Allergies*] Active Medications: Current Medications Generic Name Dose Route Start Last Admin Trade Name Freq PRN Reason Stop Dose Admin Acetaminophen 650 mg 11/21/20 21:16 Acetaminophen 325 Mg Tablet PO Q6H PRN Headache/Pain Mild Scale (1-3) Al Hydroxide/Mg Hydroxide 30 ml 11/21/20 21:16 Magnesium Hydrox/Alum Hydrox 30 Ml Oral.Susp PO Q6H PRN Heartburn/Nausea Lorazepam 0.5 mg 11/21/20 16:16 11/24/20 06:40 Lorazepam 0.5 Mg Tablet PO 0.5 mg Q6H PRN Administration anxiety Magnesium Hydroxide 30 ml 11/21/20 21:16 Milk Of Magnesia 30 Ml Oral.Susp PO DAILY PRN Constipation Quetiapine Fumarate 150 mg 11/22/20 21:00 11/23/20 20:57 Quetiapine Fumarate 50 Mg Tablet PO 150 mg BEDTIME DENISSE Administration Quetiapine Fumarate 25 mg 11/22/20 09:25 11/24/20 08:18 Quetiapine Fumarate 25 Mg Tablet PO 25 mg BID@0830,1430 DENISSE Administration Trazodone HCl 50 mg 11/21/20 21:16 Trazodone Hcl 50 Mg Tablet PO BEDTIME PRN Insomnia Venlafaxine HCl 75 mg 11/21/20 09:00 11/24/20 08:18 Venlafaxine Hcl Er 75 Mg Cap.Er.24h PO 75 mg DAILY DENISSE Administration Venlafaxine HCl 150 mg 11/21/20 09:00 11/24/20 08:18 Venlafaxine Hcl Er 150 Mg Cap.Er.24h PO 150 mg DAILY DENISSE Administration Home Medications Medication Instructions Recorded Confirmed Last Taken Type quetiapine 100 mg PO BEDTIME PRN 11/20/20 11/20/20 Unknown History venlafaxine 75 mg PO DAILY 11/20/20 11/20/20 Unknown History venlafaxine 150 mg PO DAILY 11/20/20 11/20/20 Unknown History Physical Exam Vital Signs: Vital Signs: Last Vital Signs Temp 97.4 F 11/24/20 06:00 Pulse 88 11/24/20 06:00 Resp 16 11/24/20 06:00 BP 107/56 L 11/24/20 06:00 Pulse Ox 95 11/24/20 06:00 Body Mass Index 22.1 Const: General: cooperative, comfortable and no acute distress Orientation/consciousness: patient oriented x3 HENMT: Other: Unremarkable Neck: Neck: Yes normal visual inspection Chest: Chest palpation & inspection: normal inspection of the chest Resp: Auscultation: clear to auscultation bilaterally, no crackles and no wheezes Cardio: Jugular venous distension: no JVD Palpation: normal PMI Heart sounds: S1 normal heart sound present, S2 normal heart sound present, no gallops, no murmurs and no rubs GI: Palpation (GI): Soft to palpation Back/Spine/Pelvis: Other: unremarkable Skin: General skin exam: no rashes or lesions noted Neuro: General: patient oriented x3 Extrem: General: Yes no clubbing, cyanosis or edema Psych: Mental Status: mental status grossly normal Results Labs and Meds Result diagrams: 11/20/20 13:20 11/20/20 13:20 ECG Attestation: I personally reviewed and interpreted this ECG as follows: Interpretation: EKG reviewed. Rhythm was sinus at 87/Min. Seems to have biatrial enlargement. Cannot exclude old septal infarct but could just be from lead placement and body habitus. Normal NC and QTc. Assessment and Plan (1) Preoperative cardiovascular examination: Status: Acute (2) Abnormal finding on EKG: Status: Acute (3) Depression: Qualifiers: Depression Type: unspecified Qualified Code(s): F32.9 - Major depressive disorder, single episode, unspecified Status: Acute Clinically, she has no cardiovascular symptoms and there is no prior history as well. However EKG showing biatrial enlargement; findings of septal infarct could be from lead placement/body habitus. We can check an echocardiogram for assessment of any structural abnormalities. Unless any unexpected findings, should be low cardiac risk for ECT.
--- NOTE | 2020-11-24 15:15 | PC.NURSE ---
Pt seen for ECT clearance by Dr Wolfarian cardiology. ordered an echo cardiogram for 11/25 before clearing for ECT. Dr Chambers notified, PACU notified that pt wouldn't be down for ECT on 11/25.
[2020-11-24 21:28] VITALS: BP 141/72; PULSE 75; TEMP 36.2
[2020-11-24] MEDS: QUEtiapine Fumarate 50 MG TABLET 150 MG PO (21:29)
[2020-11-25] MEDS: traZODone HCL 50 MG TABLET PO (00:37)
[2020-11-25] MEDS: LORazepam 0.5 MG TABLET PO (00:37)
[2020-11-25 06:00] VITALS: BP 149/80; PULSE 66; RESP 14; TEMP 36.4
--- NOTE | 2020-11-25 07:14 | CA_ITS ---
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 - E/E prime ratio is between 8 and 15 consistent with indeterminate filling pressures. - Normal right ventricular cavity size and systolic function. - No significant valvular or pericardial pathology. Findings Left Ventricle Normal left ventricular size and systolic function. There is mildly increased left ventricular wall thickness. The visually estimated ejection fraction is between 65-70%. There is no evidence of regional wall motion abnormalities. There is dynamic mid left ventricular obstruction. Abnormal diastolic function is noted. Spectral Doppler is indicative of an impaired relaxation filling pattern. E/E prime ratio is between 8 and 15 consistent with indeterminate filling pressures. Right Ventricle Normal right ventricular cavity size and systolic function. Atria Both atria are normal in size. Aortic Valve Normal aortic valve structure and function. There is no aortic valve stenosis. There is trace (trivial) aortic valve regurgitation. Mitral Valve Normal mitral valve structure and function. There is no mitral valve regurgitation. There is no mitral valve stenosis. Pulmonic Valve The pulmonic valve is likely normal. Tricuspid Valve Normal tricuspid valve structure and function. There is no tricuspid valve regurgitation. Normal right atrial pressure. There is no evidence of pulmonary hypertension. Great Vessels All visible segments of the aorta are normal in size. The visualized portions of the pulmonary artery and branches are normal. Venous The inferior vena cava is normal in size and collapses greater than 50% with inspiration. Pericardium/Pleural There is no evidence of pericardial effusion. Prior Study Comparison No prior study available for comparison. Measurements 2D Linear Measurements RVIDd: 2.32 RVIDd Index: 1.47 IVSd: 0.95 0.6-0.9/0.6-1.0 cm LVIDd: 3.52 3.9-5.3/4.2-5.9 cm LVIDd Index: 2.23 2.4-3.2/2.2-3.1 cm/m2 LVIDs: 1.99 2.0-3.6 cm LVPWd: 0.95 0.7-1.1 cm Ao Root: 2.60 2.1-3.5 cm LA Diam: 3.00 2.7-3.8/3.0-4.0 cm LAIDs Index: 1.90 1.5-2.3 cm/m2 LV Mass: 120.32 67-162/88-224 g LV Mass Index: 76.15 43-95/49-115 g/m2 LVOT Diam: 2.10 3.0+(-)1.3 cm 2D Systolic Function EF 4C: 69.40 >55% EF 2C: 69.30 >55% EF BiP: 68.40 >55% Mitral Valve MV Pk E: 0.66 MV PK A: 0.82 MV Decel Time: 313.00 E/A: 0.80 E'Lateral: 5.80 E'Medial: 3.67 E/E' Med: 18.00 E/E' Lat: 11.40 Aortic Valve AoV Pk Won: 1.65 AoV Mn Won: 1.31 AoV VTI: 0.34 AoV Pk Grad: 11.00 Aov Mn Grad: 7.00 LVOT LVOT Diam: 2.10 LVOT Area: 3.46 Diastolic Function MV Pk E: 0.66 MV Pk A: 0.82 E/A: 0.80 E'Medial: 3.67 E/E' Med: 18.00 E' Laterial: 5.80 E/E' Lat: 11.40 Tricuspid Valve TR Pk Won: 2.58 TR Pk Grad: 27.00 RVSP: 30.00 Great Vessels Aorta Ao Root-2D: 2.60 2.0-3.7 cm Ao Asc: 2.50 2.1-3.4 cm Ao Arch: 2.40 Updated in Other Vendor System with Status of Final Eriberto Beckwith MD electronically signed on 11/25/2020 1:44:17 PM with status of Final
[2020-11-25] MEDS: Venlafaxine HCl ER 75 MG CAP.ER.24H PO (08:46)
[2020-11-25] MEDS: QUEtiapine Fumarate 25 MG TABLET PO ×2 (08:46→15:04)
[2020-11-25] MEDS: Venlafaxine HCl ER 150 MG CAP.ER.24H PO (08:46)
--- NOTE | 2020-11-25 12:20 | P.PNPSI_ITS ---
Subjective Subjective Date of Service: 11/25/20 Reason For Visit: Depression OCD Subjective Notes: Conditional Voluntary Interim History: pt seen with no psychosis calmer improved discussed referral to tms no si Medication Compliance: Yes Side effects from medications: No Attending Groups: Yes Mental Status Exam Mental Status Exam Narrative: Appropriate, well groomed Patient Orientation: Person, Place, Time and Situation Level of Consciousness: Awake Patient Behavior: Appropriate and Cooperative Mood Description: Depressed but improved less anxiety Affect Description: Congruent Patient Cognition Impaired: No Speech Pattern: Clear Memory Description: Intact Hallucinations: None Delusions: Not Present Thought Process: linear, logical and goal directed Thought Content: positive for Obsessional Thoughts, positive for Preoccupation and negative for Suicidal Ideation Depressive Symptoms: Increased Anxiety and Insomnia no psychomotor agitation/retardation Judgement and Insight: improved Diagnostics Vital Signs (24Hr): Vital Signs - 24 hr 11/24/20 21:28 11/25/20 06:00 Temperature 97.2 F 97.5 F Pulse Rate 75 66 Respiratory Rate 14 Blood Pressure 141/72 H 149/80 H Body Mass Index 22.1 Labs Results: 11/20/20 13:20 11/20/20 13:20 Medications Medications Current Medications Generic Name Dose Route Start Last Admin Trade Name Freq PRN Reason Stop Dose Admin Acetaminophen 650 mg 11/21/20 21:16 Acetaminophen 325 Mg Tablet PO Q6H PRN Headache/Pain Mild Scale (1-3) Al Hydroxide/Mg Hydroxide 30 ml 11/21/20 21:16 Magnesium Hydrox/Alum Hydrox 30 Ml Oral.Susp PO Q6H PRN Heartburn/Nausea Lorazepam 0.5 mg 11/21/20 16:16 11/25/20 00:37 Lorazepam 0.5 Mg Tablet PO 0.5 mg Q6H PRN Administration anxiety Magnesium Hydroxide 30 ml 11/21/20 21:16 Milk Of Magnesia 30 Ml Oral.Susp PO DAILY PRN Constipation Quetiapine Fumarate 150 mg 11/22/20 21:00 11/24/20 21:29 Quetiapine Fumarate 50 Mg Tablet PO 150 mg BEDTIME DENISSE Administration Quetiapine Fumarate 25 mg 11/22/20 09:25 11/25/20 08:46 Quetiapine Fumarate 25 Mg Tablet PO 25 mg BID@0830,1430 DENISSE Administration Trazodone HCl 50 mg 11/21/20 21:16 11/25/20 00:37 Trazodone Hcl 50 Mg Tablet PO 50 mg BEDTIME PRN Administration Insomnia Venlafaxine HCl 75 mg 11/21/20 09:00 11/25/20 08:46 Venlafaxine Hcl Er 75 Mg Cap.Er.24h PO 75 mg DAILY DENISSE Administration Venlafaxine HCl 150 mg 11/21/20 09:00 11/25/20 08:46 Venlafaxine Hcl Er 150 Mg Cap.Er.24h PO 150 mg DAILY DNEISSE Administration Allergies Allergies Allergy/AdvReac Type Severity Reaction Status Date / Time No Known Allergies Allergy Verified 11/20/20 11:36 [No Known Allergies*] Assessment & Plan Assessment & Plan (1) Major depressive disorder, recurrent severe without psychotic features: Status: Acute Code(s): F33.2 - Major depressive disorder, recurrent severe without psychotic features (2) OCD (obsessive compulsive disorder): Qualifiers: Obsessive-compulsive disorder type: unspecified Qualified Code(s): F42.9 - Obsessive-compulsive disorder, unspecified Status: Acute Code(s): F42.9 - Obsessive-compulsive disorder, unspecified (3) Abnormal finding on EKG: Status: Acute Code(s): R94.31 - Abnormal electrocardiogram [ECG] [EKG] Assessment and Plan: Patient admitted with severe anxiety relapse and depression OCD. Patient feeling better case reviewed with . Review option of outpatient treatment with TMS. Case reviewed with Dr. Jarod Reyes patient doing better with increased Seroquel continues on Effexor. Mood improved no self- harming thoughts no psychosis better perspective with OCD. Echocardiogram reviewed no severe findings noted no evidence of IA patient would be able to obtain ECT if needed Greater than 50% of the session was spent on counseling and/or coordination of care Reason for contiued inpatient stay Substantial Risk for: inability to function and rapid decompensation
[2020-11-25 18:50] VITALS: BP 130/61; PULSE 82; TEMP 37.1
[2020-11-25] MEDS: QUEtiapine Fumarate 50 MG TABLET 150 MG PO (21:01)
[2020-11-26] MEDS: traZODone HCL 50 MG TABLET PO (03:23)
[2020-11-26] MEDS: LORazepam 0.5 MG TABLET PO (03:23)
[2020-11-26 06:30] VITALS: BP 129/58; PULSE 64; RESP 16; TEMP 36.6; O2SAT 97
[2020-11-26] MEDS: QUEtiapine Fumarate 25 MG TABLET PO (08:40)
[2020-11-26] MEDS: Venlafaxine HCl ER 75 MG CAP.ER.24H PO (08:40)
[2020-11-26] MEDS: Venlafaxine HCl ER 150 MG CAP.ER.24H PO (08:40)
--- NOTE | 2020-11-26 09:41 | PM.PNCARD ---
Subjective Subjective Date of Service: 11/26/20 Principal diagnosis: abnormal EKG finding, preop ECT Interval history: Cardiology follow up for the above. Seen at 0920. Today she reports feeling better. No physical complaints: including sob, CP, palpitations. States she may be going home today. Review of Systems Review of Systems as above Physical Exam Vital Signs: Last Vital Signs Temp 97.9 F 11/26/20 06:30 Pulse 64 11/26/20 06:30 Resp 16 11/26/20 06:30 BP 129/58 L 11/26/20 06:30 Pulse Ox 97 11/26/20 06:30 Body Mass Index 22.1 Const General: cooperative, healthy appearing, no acute distress, alert and awake Orientation/consciousness: patient oriented x3 Resp Effort & Inspection: normal respiratory effort, able to speak in complete sentences and not labored Auscultation: clear to auscultation bilaterally, no crackles, no rales, no rhonchi and no wheezes Cardio Rate: regular rate Rhythm: regular rhythm Heart sounds: S1 normal heart sound present and S2 normal heart sound present Peripheral pulses: Peripheral pulses 2+ throughout GI Inspection: Yes normal to inspection Neuro General: patient oriented x3 Extrem General: Yes normal to inspection and No edema Results Labs and Meds Result diagrams: 11/20/20 13:20 11/20/20 13:20 Progress Note: A&P Assessment and plan (1) Preoperative cardiovascular examination: Status: Acute Assessment and Plan: Preop for ECT. EKG done this admit showing SR, biatrial enlargement and possible old septal infarct. She has no known cardiac hx. Cardiac risk of age. Good functional capacity. Echo completed yesterday shows EF 65-70%, mild LVH, no regional WMA, normal RV size and function, normal atrial sizes, no significant valve abnormalities. No echo evidence of prior infarct. She may proceed with ECT treatment with low cardiac risk. (2) Abnormal finding on EKG: Status: Acute Assessment and Plan: Could be related to lead placement or body habitus. (3) Major depressive disorder, recurrent severe without psychotic features: Status: Acute Fall Risk Details Current Medications: Current Medications Generic Name Dose Route Start Last Admin Trade Name Freq PRN Reason Stop Dose Admin Acetaminophen 650 mg 11/21/20 21:16 Acetaminophen 325 Mg Tablet PO Q6H PRN Headache/Pain Mild Scale (1-3) Al Hydroxide/Mg Hydroxide 30 ml 11/21/20 21:16 Magnesium Hydrox/Alum Hydrox 30 Ml Oral.Susp PO Q6H PRN Heartburn/Nausea Lorazepam 0.5 mg 11/21/20 16:16 11/26/20 03:23 Lorazepam 0.5 Mg Tablet PO 0.5 mg Q6H PRN Administration anxiety Magnesium Hydroxide 30 ml 11/21/20 21:16 Milk Of Magnesia 30 Ml Oral.Susp PO DAILY PRN Constipation Quetiapine Fumarate 150 mg 11/22/20 21:00 11/25/20 21:01 Quetiapine Fumarate 50 Mg Tablet PO 150 mg BEDTIME DENISSE Administration Quetiapine Fumarate 25 mg 11/22/20 09:25 11/26/20 08:40 Quetiapine Fumarate 25 Mg Tablet PO 25 mg BID@0830,1430 DENISSE Administration Trazodone HCl 50 mg 11/21/20 21:16 11/26/20 03:23 Trazodone Hcl 50 Mg Tablet PO 50 mg BEDTIME PRN Administration Insomnia Venlafaxine HCl 75 mg 11/21/20 09:00 11/26/20 08:40 Venlafaxine Hcl Er 75 Mg Cap.Er.24h PO 75 mg DAILY DENISSE Administration Venlafaxine HCl 150 mg 11/21/20 09:00 11/26/20 08:40 Venlafaxine Hcl Er 150 Mg Cap.Er.24h PO 150 mg DAILY DENISSE Administration Time Spent With Patient Time: Total time spent is greater than 50% in coordination of care (as documented) at patient's floor/unit and/or counseling patient: 10 Time with patient: less than 15 minutes
--- NOTE | 2020-11-26 21:29 | PM.PSYDC ---
DS: Providers Provider Date of Service: 12/08/20 Date of admission: 11/21/20 12:53 Primary care physician: Unknown Physician Consults: 11/21/20 21:16 Consult to Hospitalist Routine Consulting Provider: Hospitalist Reason For Exam: need medical clearance for ect for 11/22/20 possible 11/22/20 09:24 Consult to Cardiology Routine Consulting Provider: [facility] Cardiovascular Services Reason for consultation: PREOP EVAL FOR ECT ? SEPTAL INFARCT NEW SINCE LAST SEEN Has provider been notified: No DS: Diagnosis Discharge Diagnosis (1) Preoperative cardiovascular examination: Status: Resolved (2) Abnormal finding on EKG: Status: Acute (3) Major depressive disorder, recurrent severe without psychotic features: Status: Acute DS: Medications Discharge Medications Home Medications: Previous Rx's Medication Instructions Recorded lorazepam 0.5 mg PO BID PRN #20 tab 11/26/20 quetiapine 25 mg PO BID@0830,1430 30 Days #90 11/26/20 tab quetiapine 150 mg PO BEDTIME 30 Days #90 tab 11/26/20 venlafaxine 300 mg PO DAILY 30 Days #60 cap 11/26/20 Discharge Plan Discharge Patient Disposition: Home, Self-Care Discharge Diagnosis: major depression recurrent severe OCD Referrals: Gunner Remy, psychiatry, [facility] [place] [Other] - 11/29/20 9:40 am Davy, therapist, [facility] [Other] - 11/28/20 10:00 am [facility] for TMS [Other] - 11/27/20 11:00 am (contact made with Emily Saba and email sent to person handling TMS referrals/intakes at [place]) [facility] [Other] - 12/04/20 12:00 pm Discharge Medications: New quetiapine 25 mg Tablet 25 mg PO BID@0830,1430 30 Days Qty: 90 RF: 0 venlafaxine 150 mg Capsule,Extended Release 24hr 300 mg PO DAILY 30 Days Qty: 60 RF: 0 quetiapine 50 mg Tablet 150 mg PO BEDTIME 30 Days Qty: 90 RF: 0 lorazepam 0.5 mg tablet 0.5 mg PO BID PRN (Reason: anxiety) Qty: 20 RF: 1 Discontinued venlafaxine 75 mg capsule,extended release 24hr 75 mg PO DAILY RF: 0 venlafaxine 150 mg capsule,extended release 24hr 150 mg PO DAILY RF: 0 quetiapine 100 mg tablet 100 mg PO BEDTIME PRN (Reason: Anxiety) RF: 0 Discharge Orders: Discharge Order (Routine); Ordered 11/26/20 Ordered By: Kyler Chambers Diet: advance to usual diet Activity on Discharge: As tolerated Stand Alone Forms: Patient Portal Discharge page Care Plan Goals: stable mood improved management of anxiety and ocd no harming thoughts Health Concerns: major dfepression recurrent severe OCD Plan of Treatment: tms medication therapy Assessment: mood and anxiety improving Discharge Date/Time: 11/26/20 13:30 Mental Status Exam Mental Status Exam Patient Appearance: Well Grooomed Patient Orientation: Person, Place, Time and Situation Level of Consciousness: Awake Patient Behavior: Anxious and Good Eye Contact Mood Description: Apprehensive Affect Description: Apprehensive Delusions: Not Present Thought Content: positive for Obsessional Thoughts, positive for Preoccupation, negative for Suicidal Ideation and negative for Homicidal Ideation Depressive Symptoms: Loss of Int. in Activity and Hopelessness Judgement and Insight: IMPROVED UNDERSTANDING OF OCD BETTER PERSPECTIVE NO SELF-HARMING THOUGHTS OR THOUGHTS OF HARM TO HER Data Data Completed and Pending Completed studies during hospitalization [Text1]: 11/20/20 11/20/20 11/20/20 13:20 13:20 19:35 WBC 5.5 RBC 4.60 Hgb 13.9 Hct 40.9 MCV 88.9 MCH 30.2 MCHC 34.0 RDW 12.5 Plt Count 201 MPV 10.9 Immature Gran % (Auto) 0.2 Neut % (Auto) 64.1 Lymph % (Auto) 27.8 [place] % (Auto) 6.9 Eos % (Auto) 0.5 Baso % (Auto) 0.5 Lymph # (Auto) 1.5 [place] # (Auto) 0.4 Eos # (Auto) 0.0 Baso # (Auto) 0.0 Abs Immat Gran (auto) 0.01 Absolute Neuts (auto) 3.6 Absolute Nucleated RBC 0.000 Nucleated RBC % (auto) 0.0 Sodium 136 Potassium 4.0 Chloride 101 Carbon Dioxide 26 Anion Gap 13 BUN 16 Creatinine 1.05 Estim Creat Clear Calc 36.5 Estimated GFR 51 Random Glucose 176 H Estimat Average Glucose Hemoglobin A1c % Calcium 9.3 Vitamin B12 Folate TSH Free T4 Salicylates < 5.0 L Urine Opiates Screen Acetaminophen < 1 Ur Barbiturates Screen Ur Phencyclidine Scrn Ur Amphetamines Screen U Benzodiazepines Scrn Urine Cocaine Screen U Marijuana (THC) Screen COVID-19 (FANG) Negative COVID-19 Clin Com See Note 11/20/20 11/22/20 11/22/20 19:37 07:56 07:56 WBC RBC Hgb Hct MCV MCH MCHC RDW Plt Count MPV Immature Gran % (Auto) Neut % (Auto) Lymph % (Auto) [place] % (Auto) Eos % (Auto) Baso % (Auto) Lymph # (Auto) [place] # (Auto) Eos # (Auto) Baso # (Auto) Abs Immat Gran (auto) Absolute Neuts (auto) Absolute Nucleated RBC Nucleated RBC % (auto) Sodium Potassium Chloride Carbon Dioxide Anion Gap BUN Creatinine Estim Creat Clear Calc Estimated GFR Random Glucose Estimat Average Glucose 114 Hemoglobin A1c % 5.6 Calcium Vitamin B12 338 Folate 5.7 TSH Free T4 Salicylates Urine Opiates Screen Not Detected Acetaminophen Ur Barbiturates Screen Not Detected Ur Phencyclidine Scrn Not Detected Ur Amphetamines Screen Not Detected U Benzodiazepines Scrn Not Detected Urine Cocaine Screen Not Detected U Marijuana (THC) Screen Not Detected COVID-19 (FANG) COVID-[employer] Com 11/22/20 07:56 WBC RBC Hgb Hct MCV MCH MCHC RDW Plt Count MPV Immature Gran % (Auto) Neut % (Auto) Lymph % (Auto) [place] % (Auto) Eos % (Auto) Baso % (Auto) Lymph # (Auto) [place] # (Auto) Eos # (Auto) Baso # (Auto) Abs Immat Gran (auto) Absolute Neuts (auto) Absolute Nucleated RBC Nucleated RBC % (auto) Sodium Potassium Chloride Carbon Dioxide Anion Gap BUN Creatinine Estim Creat Clear Calc Estimated GFR Random Glucose Estimat Average Glucose Hemoglobin A1c % Calcium Vitamin B12 Folate TSH 3.26 Free T4 0.97 Salicylates Urine Opiates Screen Acetaminophen Ur Barbiturates Screen Ur Phencyclidine Scrn Ur Amphetamines Screen U Benzodiazepines Scrn Urine Cocaine Screen U Marijuana (THC) Screen COVID-19 (FANG) COVID-19 Clin Com DS: Summary Hospital Course Hospital Course: [address] [address] Psychiatry Admission Note (In)Signed Patient: Maribell Zayas R#: [id number]: 2Acct:[id number]/Sex: 80 / FLoc:[id number]: Kyler Chambers MD cc: ~ HPI Chief Complaint: Depression OCD Sources of Information: patient interviewed, chart reviewed and crisis/core team assessment reviewed HPI Subjective Notes: Conditional Voluntary Narrative: The patient is a 80-year-old female who moved to [place] 3 year ago and has a history of depression and OCD at times with psychotic features. She sees Gunner Remy TERRA[facility] POLISHER HELPER in [place] she has a history of good response to ECT and the past had maintenance ECT. Over the past 3 weeks she has had intrusive thoughts and fear that she was going to stab her this began to obsess her she became quite fearful and was not improving over the past 2-3 weeks and eventually became quite agitated and came to [facility]. She was seen in May for a consult regarding maintenance ECT and she seems stable at that time. She has been on Effexor 225 mg a day Seroquel 100 mg a day. She denies any recent trigger or reason why she would have relapse. Past Psychiatric History: History of psychiatric hospitalizations history of ECT including maintenance ECT in the past in [place] Medical Evaluation Reviewed: Hospitalist Nicanor Pending No acute medical findings were noted patient was noted times to be hypertensive in the emergency room [facility] Medical History (Updated 11/22/20 @ 22:06 by Kyler Chambers MD) Depression Major depressive disorder, recurrent severe without psychotic features OCD (obsessive compulsive disorder) S/P ECT (electroconvulsive therapy) Narrative: Patient denies any significant medical history only on psychiatric medication Surgical History No history of previous surgery Social History: Patient is retired lives with her and [place]. They have good relationship is very supportive and children live near Substance History: none Trauma History: none Diagnostics Vital Signs (24Hr):Vital Signs - 24 hr 11/21/20 14:37 11/21/20 20:00 11/22/20 05:55 Temperature 96.4 F L 97.5 F 98.8 F Pulse Rate 80 84 71 Respiratory Rate 17 20 16 Blood Pressure 139/83 182/88 H 128/71 Pulse Oximetry 99 98 98 Body Mass Index 22.1 Labs Results: 11/20/20 13:20 document embedded image 11/20/20 13:20 document embedded image Labs:Laboratory Results - last 48 hr 11/20/20 11/20/20 11/20/20 13:20 13:20 19:35 WBC 5.5 RBC 4.60 Hgb 13.9 Hct 40.9 MCV 88.9 MCH 30.2 MCHC 34.0 RDW 12.5 Plt Count 201 MPV 10.9 Immature Gran % (Auto) 0.2 Neut % (Auto) 64.1 Lymph % (Auto) 27.8 [place] % (Auto) 6.9 Eos % (Auto) 0.5 Baso % (Auto) 0.5 Lymph # (Auto) 1.5 [place] # (Auto) 0.4 Eos # (Auto) 0.0 Baso # (Auto) 0.0 Abs Immat Gran (auto) 0.01 Absolute Neuts (auto) 3.6 Absolute Nucleated RBC 0.000 Nucleated RBC % (auto) 0.0 Sodium 136 Potassium 4.0 Chloride 101 Carbon Dioxide 26 Anion Gap 13 BUN 16 Creatinine 1.05 Estim Creat Clear Calc 36.5 Estimated GFR 51 Random Glucose 176 H Estimat Average Glucose Hemoglobin A1c % Calcium 9.3 Vitamin B12 Folate TSH Free T4 Salicylates < 5.0 L Urine Opiates Screen Acetaminophen < 1 Ur Barbiturates Screen Ur Phencyclidine Scrn Ur Amphetamines Screen U Benzodiazepines Scrn Urine Cocaine Screen U Marijuana (THC) Screen COVID-19 (FANG) Negative COVID-19 Clin Com See Note 11/20/20 11/22/20 11/22/20 19:37 07:56 07:56 WBC RBC Hgb Hct MCV MCH MCHC RDW Plt Count MPV Immature Gran % (Auto) Neut % (Auto) Lymph % (Auto) [place] % (Auto) Eos % (Auto) Baso % (Auto) Lymph # (Auto) [place] # (Auto) Eos # (Auto) Baso # (Auto) Abs Immat Gran (auto) Absolute Neuts (auto) Absolute Nucleated RBC Nucleated RBC % (auto) Sodium Potassium Chloride Carbon Dioxide Anion Gap BUN Creatinine Estim Creat Clear Calc Estimated GFR Random Glucose Estimat Average Glucose 114 Hemoglobin A1c % 5.6 Calcium Vitamin B12 338 Folate 5.7 TSH Free T4 Salicylates Urine Opiates Screen Not Detected Acetaminophen Ur Barbiturates Screen Not Detected Ur Phencyclidine Scrn Not Detected Ur Amphetamines Screen Not Detected U Benzodiazepines Scrn Not Detected Urine Cocaine Screen Not Detected U Marijuana (THC) Screen Not Detected COVID-19 (FANG) COVID-19 [employer] Com 11/22/20 07:56 WBC RBC Hgb Hct MCV MCH MCHC RDW Plt Count MPV Immature Gran % (Auto) Neut % (Auto) Lymph % (Auto) [place] % (Auto) Eos % (Auto) Baso % (Auto) Lymph # (Auto) [place] # (Auto) Eos # (Auto) Baso # (Auto) Abs Immat Gran (auto) Absolute Neuts (auto) Absolute Nucleated RBC Nucleated RBC % (auto) Sodium Potassium Chloride Carbon Dioxide Anion Gap BUN Creatinine Estim Creat Clear Calc Estimated GFR Random Glucose Estimat Average Glucose Hemoglobin A1c % Calcium Vitamin B12 Folate TSH 3.26 Free T4 0.97 Salicylates Urine Opiates Screen Acetaminophen Ur Barbiturates Screen Ur Phencyclidine Scrn Ur Amphetamines Screen U Benzodiazepines Scrn Urine Cocaine Screen U Marijuana (THC) Screen COVID-19 (FANG) COVID-19 Clin Com Meds/Allergies Meds Home Medications Acetaminophen (Acetaminophen 325 Mg Tablet) 650 mg PO Q6H PRN PRN Reason: Headache/Pain Mild Scale (1-3) Al Hydroxide/Mg Hydroxide (Magnesium Hydrox/Alum Hydrox 30 Ml Oral.Susp) 30 ml PO Q6H PRN PRN Reason: Heartburn/Nausea Lorazepam (Lorazepam 0.5 Mg Tablet) 0.5 mg PO Q6H PRN PRN Reason: anxiety Last Admin: 11/21/20 22:47 Dose: 0.5 mg Documented by: Magnesium Hydroxide (Milk Of Magnesia 30 Ml Oral.Susp) 30 ml PO DAILY PRN PRN Reason: Constipation Quetiapine Fumarate (Quetiapine Fumarate 50 Mg Tablet) 150 mg PO BEDTIME [facility] Last Admin: 11/22/20 20:56 Dose: 150 mg Documented by: Quetiapine Fumarate (Quetiapine Fumarate 25 Mg Tablet) 25 mg PO BID@0830,1430 [facility] Last Admin: 11/22/20 14:52 Dose: 25 mg Documented by: Trazodone HCl (Trazodone Hcl 50 Mg Tablet) 50 mg PO BEDTIME PRN PRN Reason: Insomnia Venlafaxine HCl (Venlafaxine Hcl Er 75 Mg Cap.Er.24h) 75 mg PO DAILY [facility] Last Admin: 11/22/20 09:54 Dose: 75 mg Documented by: Venlafaxine HCl (Venlafaxine Hcl Er 150 Mg Cap.Er.24h) 150 mg PO DAILY [facility] Last Admin: 11/22/20 09:54 Dose: 150 mg Documented by: Allergies Allergies Allergy/AdvReac Type Severity Reaction Status Date / Time No Known Allergies Allergy Verified 11/20/20 11:36 [No Known Allergies*] Mental Status Exam Mental Status Exam Patient Appearance: Appropriate Patient Orientation: Person, Place, Time and Situation Level of Consciousness: Awake Patient Behavior: Appropriate and Cooperative Mood Description: Depressed, Anxious and Apprehensive Affect Description: Constricted, Depressed, Anxious and Apprehensive Patient Cognition Impaired: No Speech Pattern: Clear Memory Description: Intact Hallucinations: None Delusions: Not Present Thought Process: Racing and Rumination Thought Content: positive for Obsessional Thoughts, positive for Preoccupation and negative for Suicidal Ideation Depressive Symptoms: Increased Anxiety and Insomnia Abnormal Motor Activity Signs and Symptoms: Restlessness Judgement and Insight: Patient with with intrusive ruminations that she might harm her fearful that she would act on this difficulty seeing it as obsessional thought no impulse no plan no intent history session thinking Assessment & Plan Assessment & Plan (1) Major depressive disorder, recurrent severe without psychotic features: Status: Acute Code(s): F33.2 - Major depressive disorder, recurrent severe without psychotic features (2) OCD (obsessive compulsive disorder): Status: Acute Qualifiers: Obsessive-compulsive disorder type: unspecified Qualified Code(s): F42.9 - Obsessive-compulsive disorder, unspecified Code(s): F42.9 - Obsessive-compulsive disorder, unspecified (3) Abnormal finding on EKG: Status: Acute Code(s): R94.31 - Abnormal electrocardiogram [ECG] [EKG] Assessment and Plan: Patient admitted with severe anxiety relapse and depression OCD. Increase Seroquel 25 b.i.d. 150 at bedtime and 25 mg p.r.n.. EKG question of anterior septal [place] patient was admitted with intention of ECT. Denies any history of chest pain shortness of breath will get medical evaluation and cardiology evaluation. Monitor response to supported in medication changes consider ECT depending on medical evaluation Patient educated on: diagnosis, medication risk/benefits, ECT and medical condition Informed Consent: understands Reason for continued inpatient stay Substantial Risk for: harm to others, inability to function and rapid decompensation Hospital course The patient was admitted on a conditional voluntary spite anxious and ruminating obsessional fears but seemed quite reassured when was clearly explained to her that her intrusive thoughts regarding taking a knife to or or other intrusive it obsessional thoughts and images which clearly were not impulses but fears seem consistent with patient's history OCD particularly when she cycled into a depression. We did discuss the risks and benefits of ECT versus 1st trying medication TMS. Seroquel was increased as was Effexor patient had also been started on a benzodiazepine rest Meghana for anxiety which seemed to be quite helpful. Patient did have abnormal EKG which showed possible anterior cardiology cleared her for ECT after and echo which was unremarkable AFTER DO THOUGHT THE PATIENT IN HER DECIDED SHE DID NOT NEED TO START ECT ACUTELY SHE WAS REFERRED TO TMS WHICH SHE HAD DONE PREVIOUSLY SHE WAS GOING TO RETURN TO [place] 0 FOLLOW-UP WITH GUNNER REMY SHE WAS TO HAVE A TMS CONSULT WITH DR. EMILY GARCIA WE COULD RECONSIDER ECT AN OUTPATIENT DEPENDING ON PATIENT'S RESPONSE ON CONDITION Status at Discharge Functional status at discharge: independent ambulation Overall status at discharge: patient is progressing back to baseline Time Spent with Patient Time attestation: Total time spent providing and/or coordinating discharge services:
== END 2020-11-26 13:30 | disposition home or self-care (01) | DRG 885 ==
LOC: HO.ED 11-21 11:42 → HO.PM5 11-21 16:05
PROVIDERS: Nurse Practitioner Family; Nurse Practitioner Primary Care; Admitting Provider Psychiatry & Neurology Psychiatry; Emergency Provider Emergency Medicine; Visit Provider Psychiatry & Neurology Psychiatry
DX: F33.2 Major depressive disorder, recurrent severe without psychotic features (principal); F42.9 Obsessive-compulsive disorder, unspecified; R94.31 Abnormal electrocardiogram [ECG] [EKG]; Z20.822 Contact with and (suspected) exposure to COVID-19; Z79.899 Other long term (current) drug therapy
CPT/HCPCS: 36415; 80048; 80143; 80179; 80307; 82607; 82746; 83036; 84439; 84443; 85025; 87635; 93005; 93306; 99285

== ENCOUNTER 2021-03-10 13:45 | Outpatient (REF) | payer MEDICARE, BC, SELFPAY ==
--- NOTE | 2021-03-10 14:06 | ECG_ITS ---
Test Reason : PREOP Blood Pressure : / mmHG Vent. Rate : 081 BPM Atrial Rate : 081 BPM P-R Int : 158 ms QRS Dur : 072 ms QT Int : 394 ms P-R-T Axes : 074 024 058 degrees QTc Int : 457 ms Normal sinus rhythm Biatrial enlargement Abnormal ECG When compared with ECG of 20-NOV-2020 13:10, No significant change was found Referred By: Kyler Chambers Electronically Signed By:ALYSSA RANDALL
[2021-03-10 15:08] LABS: MANUAL DIFF FLAG NO
[2021-03-10 15:13] LABS: Basophils Percent Auto 0.5 % (0-2); Eosinophils Absolute Auto 0.1 X10*3/uL (0.0-0.4); Eosinophils Percent Auto 1.6 % (0-4); Hematocrit 41.8 % (37-47); Hemoglobin 14.4 g/dl (12.0-16.0); Imm Gran Abs Auto 0.02 X10*3/uL (0.00-0.03); Imm Gran Pct Auto 0.4 % (0.0-0.4); Lymphocytes Absolute Auto 1.7 X10*3/uL (1.2-4.9); Lymphocytes Percent Auto 29.8 % (20-40); Mean Corpuscular HGB Conc 34.4 g/dl (31.0-35.0); Mean Corpuscular Volume 89.9 fL (80-98); Mean Platelet Volume 11.5 fL (9.4-12.3); Monocytes Absolute Auto 0.5 X10*3/uL (0.1-1.2); Monocytes Percent Auto 8.4 % (2-11); Neutrophils Absolute Auto 3.4 X10*3/uL (2.0-8.3); Neutrophils Percent Auto 59.3 % (45-73); Platelet Count 234 X10*3/uL (160-400); Red Blood Count 4.65 X10*6/uL (4.20-5.50); Red Cell Distribution Width 12.6 % (11.0-16.0); White Blood Count 5.7 X10*3/uL (4.8-10.8)
[2021-03-10 15:26] LABS: Estimated Average Glucose 108 mg/dL; Hemoglobin A1c % 5.4 %
[2021-03-10 15:40] LABS: Alanine Aminotransferase 25 U/L (0-31); Albumin Level 4.2 g/dL (3.5-5.0); Alkaline Phosphatase 70 U/L (39-117); Anion Gap 15 (12-20); Aspartate Amino Transferase 24 U/L (5-31); Bilirubin Total 0.6 mg/dL (0.0-1.0); Blood Urea Nitrogen 16 mg/dL (9-16); Calcium 9.3 mg/dL (8.4-10.2); Carbon Dioxide 23 mmol/L (22-29); Chloride 105 mmol/L (96-108); Estimated Glomerular Filt Rate 56; Glucose Random 81 mg/dL (60-115); Potassium 4.3 mmol/L (3.3-5.1); Sodium 139 mmol/L (135-145); Total Protein 6.1 g/dL (6.5-8.0)
== END 2021-03-10 13:46 | disposition home or self-care (01) ==
LOC: HO.LAB 13:45
PROVIDERS: Visit Provider Psychiatry & Neurology Psychiatry
DX: Z01.818 Encounter for other preprocedural examination (principal); F33.2 Major depressive disorder, recurrent severe without psychotic features
CPT/HCPCS: 36415; 80053; 83036; 85025; 93005

== ENCOUNTER 2021-03-11 09:44 | Inpatient (IN) | payer MEDICARE, BC, SELFPAY ==
--- NOTE | ~2021-03-11 | CT_ITS ---
EXAMINATION: NONCONTRAST HEAD CT NONCONTRAST ORBITS CT INDICATION INFORMATION: Fall on head/face COMPARISON: 03/11/2021 TECHNIQUE: Separate noncontrast CT examinations of the head and orbits were performed. Coronal and sagittal images were created for each examination at the technologist workstation. DOSE LOWERING TECHNIQUES: This CT examination was performed using dose optimization techniques as appropriate, variously including the following: - Automated exposure control - Adjustment of mA and/or kV according to patient size (this includes techniques or standardized protocols for targeted exams were dose is matched to indication/reason for exam; i.e. extremities or head) - Use of iterative reconstruction technique DLP: 828 mGy-cm FINDINGS: Head: There is no evidence of acute intracranial hemorrhage or territorial infarction. No abnormal mass-effect or midline shift is seen. Zuluaga to white matter differentiation is well preserved. No extra-axial fluid collections are identified. The ventricles are normal in size. There is mild to moderate periventricular white matter hypoattenuation consistent with chronic small vessel ischemic disease. No acute fracture is seen. The mastoid air cells are well aerated. Orbits: No acute maxillofacial fractures are seen. There is an inferior right frontal scalp hematoma. The orbits demonstrate a normal appearance bilaterally. The globes are intact, and there are no suspicious findings to suggest retrobulbar hemorrhage. The frontal, maxillary, ethmoid, and sphenoid sinuses are well aerated. The uncinate process is normal bilaterally. The infundibula and middle meati are patent. There is rightward deviation of the nasal septum. The mandibular condyles are well-seated in the condylar fossa. CT/CT head/brain wo con IMPRESSION: No acute intracranial findings. No fracture identified. Inferior right frontal scalp hematoma.
--- NOTE | ~2021-03-11 | CT_ITS ---
EXAMINATION: CT HEAD WITHOUT CONTRAST CLINICAL INFORMATION: Cognitive changes. COMPARISON: None available. TECHNIQUE: Contiguous axial imaging was performed from the skull base to vertex without intravenous administration of contrast. This CT examination was performed using dose optimization techniques as appropriate, variously including the following: *Automated exposure control *Adjustment of mA and/or kV according to patient size (this includes techniques or standardized protocols for targeted exams where dose is matched to indication/reason for exam; i.e. extremities or head) *Use of iterative reconstruction technique FINDINGS: Global cerebral volume loss and moderate chronic microangiopathy. There is no intracranial hemorrhage, hydrocephalus, extra-axial surface collection, midline shift, or other herniation pattern. Zuluaga to white matter differentiation is diffusely maintained without evidence of an evolved acute territorial infarct. The basilar cisterns are preserved. No significant soft tissue abnormality. No acute osseous abnormality. The paranasal sinuses and the mastoid air cells are well aerated. CT/CT head/brain wo con IMPRESSION: No acute intracranial abnormality. Global cerebral volume loss and moderate chronic microangiopathy.
[2021-03-11 09:16] LABS: COVID-19 Test Negative (Negative)
[2021-03-11 10:34] VITALS: BP 133/64; PULSE 74; RESP 18; TEMP 36.9; O2SAT 100
--- NOTE | 2021-03-11 10:55 | HO.PSYADMNOT ---
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 THE PATIENT IS KNOWN TO US FROM PREVIOUS ADMISSIONS SHE SHE HAS HAD COURSES OF ECT IN THE PAST AND HAD A COURSE OF ECT HERE IN 2019. SHE SUFFERS FROM RECURRENT DEPRESSION AT TIMES WITH PSYCHOTIC FEATURES AND OCD. THE PATIENT HAS BEEN HAVING WORSENING DEPRESSION ANXIETY RUMINATIONS DELUSIONAL GUILT REGARDING PAST BEHAVIOR AND FEELING THAT SHE IS A BAD PERSON AND THAT HER CHILDREN WILL NO LONGER WANT TO BE WITH HER. SHE HAS ALSO BEEN HAVING THOUGHTS THAT SHE WAS GOING TO KILL HERSELF AND CONCERN ABOUT ABANDONING HER HAS STOPPED HER TO THIS POINT. SHE HAS HAD THOUGHTS TO OVERDOSE. THE PATIENT DID FAIL A COURSE OF TMS THAT ENDED A COUPLE OF WEEKS AGO. THE PATIENT HAS BEEN ON SEROQUEL TO 300 MG TODAY SHE IS TREATED AT 0 SHE IS ALSO ON EFFEXOR 300 MG DAILY. PATIENT DID DO WELL WITH UNILATERAL ECT PREVIOUSLY Past Psychiatric History: History of psychiatric hospitalizations history of ECT including maintenance ECT in the past in [place] PATIENT HAS FAILED TRIALS OF FLUOXETINE SERTRALINE AMITRIPTYLINE [facility] Medical Evaluation Reviewed: Hospitalist Nicanor Pending [facility] Medical History (Updated 12/04/20 @ 00:02 by Mandy Flores) Depression Major depressive disorder, recurrent severe without psychotic features OCD (obsessive compulsive disorder) S/P ECT (electroconvulsive therapy) Narrative: WEIGHT LOSS DIAPHORESIS QUESTIONABLE HAD RECENT HISTORY OF HYPERTENSION NO KNOWN DRUG ALLERGIES HISTORY OF ABNORMAL EKG QUESTION OF ANTERIOR SEPTAL [place] ECHO IN NOVEM[place] WAS WITHIN NORMAL LIMITS AND CARDIOLOGY FELT PATIENT IS STABLE FOR ECT Surgical History No history of previous surgery Family History: GF DEPRESSION SUICIDE Social History: Patient is retired lives with her and [place]. 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 Substance History: NONE Trauma History: none Diagnostics Vital Signs (24Hr): Vital Signs - 24 hr 03/11/21 10:34 Temperature 98.4 F Pulse Rate 74 Respiratory Rate 18 Blood Pressure 133/64 Pulse Oximetry 100 Labs Labs: Laboratory Results - last 48 hr 03/11/21 08:31 COVID-19 (FANG) Negative COVID-19 Clin Com See Note Meds/Allergies Meds Home Medications Acetaminophen (Acetaminophen 325 Mg Tablet) 650 mg PO Q6H PRN PRN Reason: Headache/Pain Mild Scale (1-3) Al Hydroxide/Mg Hydroxide (Magnesium Hydrox/Alum Hydrox 30 Ml Oral.Susp) 30 ml PO Q6H PRN PRN Reason: Heartburn/Nausea Hydroxyzine HCl (Hydroxyzine Hcl 25 Mg Tablet) 25 mg PO BEDTIME PRN PRN Reason: Anxiety Magnesium Hydroxide (Milk Of Magnesia 30 Ml Oral.Susp) 30 ml PO DAILY PRN PRN Reason: Constipation Trazodone HCl (Trazodone Hcl 50 Mg Tablet) 50 mg PO BEDTIME PRN PRN Reason: Insomnia Allergies Allergies Allergy/AdvReac Type Severity Reaction Status Date / Time No Known Allergies Allergy Verified 11/20/20 11:36 [No Known Allergies*] Mental Status Exam Mental Status Exam Patient Appearance: Perspiring Patient Orientation: Person, Place, Time and Situation Level of Consciousness: Awake Patient Behavior: Appropriate and Anxious Mood Description: Depressed, Anxious and Apprehensive Affect Description: Anxious, Sad, Nervous and Apprehensive Patient Cognition Impaired: No Ability to Follow Directions: Good Speech Pattern: Clear Memory Description: Intact Hallucinations: None Delusions: Present (GUILTY RUMINATIONS OF DELUSIONAL PROPORTIONS) Thought Process: Rumination Thought Content: positive for Preoccupation and positive for Suicidal Ideation Depressive Symptoms: Increased Anxiety, Increased Irritability, Significant Weight Loss, Feelings of Worthlessness, Hopelessness, Feelings of Guilt, Increased Fatigue, Thoughts of /Suicide and Difficulty Concentrating Judgement: Fair Judgement and Insight: GUILTY RUMINATIONS PATIENT DOES UNDERSTAND SHE SUFFERS FROM CLINICAL DEPRESSION AND IS ACCEPTING TREATMENT Assessment & Plan Assessment & Plan (1) Major depressive disorder, recurrent severe without psychotic features: Status: Acute Code(s): F33.2 - Major depressive disorder, recurrent severe without psychotic features (2) OCD (obsessive compulsive disorder): Status: Acute Qualifiers: Obsessive-compulsive disorder type: unspecified Qualified Code(s): F42.9 - Obsessive-compulsive disorder, unspecified Code(s): F42.9 - Obsessive-compulsive disorder, unspecified Assessment and Plan: PATIENT SUFFERS FROM RECURRENT DEPRESSION SEVERE WITH WORSENING THOUGHTS OF SELF-HARM AND GUILTY RUMINATIONS HAS FAILED OUTPATIENT TREATMENT IN [facility] PATIENT AND GIVE INFORMED CONSENT TO ADMISSION RISKS BENEFITS ALTERNATIVES REVIEWED PATIENT BEING ADMITTED FOR COURSE OF ECT. RECENT ABNORMAL EKG WITH NORMAL ECHO [facility]AGE CARDIOLOGY FELT PATIENT IS STABLE FOR ECT HOSPITALIST CONSULT SEE LABS AND EKG FROM DECEMBER 08 ECT ORDERED FOR 03/12/2021 Patient educated on: diagnosis, ECT and medical condition Guardian/Caregiver educated on: diagnosis and ECT Informed Consent: understands Reason for continued inpatient stay Substantial Risk for: harm to self and rapid decompensation
--- NOTE | 2021-03-11 12:37 | PM.IMCN ---
History of Present Illness Data of Consult Service Date: 03/11/21 Requesting physician: Kyler Chambers Primary Care Provider: Unknown Physician HPI Reason for consult: risk stratification for ECT 80-year-old woman admitted to for planned ECT procedure. At this time her vital signs are stable labs from 03/10 within acceptable limits. She has no acute medical complaints. EKG shows no acute abnormalities. Review of Systems Review of Systems: Denies any recent fever chills or decrease in appetite respiratory denies any shortness of breath coverage pr denies chest pain cardiac denies chest pain gastrointestinal denies any dysphagia abdominal pain nausea vomiting or diarrhea genitourinary denies any dysuria frequency or hematuria musculoskeletal denies any joint pain or swelling neuropsych denies any weakness or seizures all other systems reviewed are negative [facility] Medical History (Updated 12/04/20 @ 00:02 by Mandy Flores) Depression Major depressive disorder, recurrent severe without psychotic features OCD (obsessive compulsive disorder) S/P ECT (electroconvulsive therapy) Family History (Updated 11/22/20 @ 16:21 by RONI Villalobos) Mother CHF (congestive heart failure) Surgical History No history of previous surgery Social History Household Members: Spouse Housing: Condominium Do you presently have visiting nurse or other home services: No Patient Tobacco Use Status: Never used Tobacco Use of substances other than those prescribed or required for medical reasons: No Have you been hit, kicked, punched, or otherwise hurt by someone within the past year? If so, by whom?: No Do you feel safe in your current relationship?: Yes Is there a partner from a previous relationship who is making you feel unsafe now?: No Are you made to feel afraid or neglected: No Spiritual Healthcare Practices: Patient practices yoga. Advance Directives: No Advance Directives Information Provided: No Do you have thoughts of harming others: None Do you have a plan to hurt others: No Plan Recently lost weight without trying: Yes How much weight loss: 2-13 pounds Nutrition Risks: No Nutritional Risk Patient : No : No Poor oral hygiene: No service: No Sexual orientation: Straight/Heterosexual Meds Allergies Allergy/AdvReac Type Severity Reaction Status Date / Time No Known Allergies Allergy Verified 11/20/20 11:36 [No Known Allergies*] Active Medications: Current Medications Generic Name Dose Route Start Last Admin Trade Name Freq PRN Reason Stop Dose Admin Acetaminophen 650 mg 03/11/21 09:44 Acetaminophen 325 Mg Tablet PO Q6H PRN Headache/Pain Mild Scale (1-3) Al Hydroxide/Mg Hydroxide 30 ml 03/11/21 09:44 Magnesium Hydrox/Alum Hydrox 30 Ml Oral.Susp PO Q6H PRN Heartburn/Nausea Hydroxyzine HCl 25 mg 03/11/21 09:44 Hydroxyzine Hcl 25 Mg Tablet PO BEDTIME PRN Anxiety Magnesium Hydroxide 30 ml 03/11/21 09:44 Milk Of Magnesia 30 Ml Oral.Susp PO DAILY PRN Constipation Quetiapine Fumarate 50 mg 03/11/21 11:31 Quetiapine Fumarate 50 Mg Tablet PO BID PRN Anxiety Quetiapine Fumarate 200 mg 03/11/21 21:00 Quetiapine Fumarate 200 Mg Tablet PO BEDTIME DENISSE Trazodone HCl 50 mg 03/11/21 09:44 Trazodone Hcl 50 Mg Tablet PO BEDTIME PRN Insomnia Venlafaxine HCl 225 mg 03/12/21 09:00 Venlafaxine Hcl Er 75 Mg Cap.Er.24h PO DAILY DENISSE Physical Exam Vital Signs and Narrative: Vital Signs: Last Vital Signs Temp 98.4 F 03/11/21 10:34 Pulse 74 03/11/21 10:34 Resp 18 03/11/21 10:34 BP 133/64 03/11/21 10:34 Pulse Ox 100 03/11/21 10:34 Appearing in no acute distress head is normocephalic atraumatic eyes pupils are PERRLA sclera is anicteric mouth throat mucous membranes are intact and moist lung sounds are clear to auscultation heart regular rate rhythm positive bowel sounds neuro patient is alert x3, no focal deficits Cranial nerves 2-12 are grossly intact without focal deficits Results Labs Labs: Laboratory Results - last 24 hr 03/11/21 08:31 COVID-19 ([facility]) Negative COVID-19 Clin Com See Note Assessment and Plan (1) Major depressive disorder, recurrent severe without psychotic features: Status: Acute 80 year old patient admitted to for scheduled ECT. She has a history of ECT. She has no history of aortic stenosis, asthma, COPD, atrial fibrillation, coronary artery disease, diabetes, hypertension, ICD, anticoagulation, . EKG shows no ischemic changes?QTc Int : 457 ms. No medical contraindications noted at this time for ECT.
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
--- NOTE | 2021-03-11 14:45 | PC.NURSE ---
Pt participated in [facility] screen on this date, scored 27/30, indicating cognition is within normal limits, Nurse and MD aware of results
[2021-03-11 18:00] VITALS: BP 158/77; PULSE 74; TEMP 36.4; O2SAT 99
[2021-03-11] MEDS: QUEtiapine Fumarate 200 MG TABLET PO (20:35)
[2021-03-12] VITALS (11 sets, daily range): BP systolic 96–148; BP diastolic 62–93; PULSE 56–89; RESP 16–18; TEMP 36.3–37.3; O2SAT 92–99; BMI 19.0
--- NOTE | 2021-03-12 08:03 | MHC.SHP ---
Pre-Procedural Eval Section A Date of Service: 03/12/21 The patient is an INPATIENT: Yes Changes since office visit: Yes Changes in Medication and Yes Patient answered all questions; No Cold of Flu in the past 2 weeks and No New Medical Problems The History & Physical has been completed within 30 days and I have reviewed it.: Yes Section B Chief Complaint: Depression w/SI Allergies: Allergies Allergy/AdvReac Type Severity Reaction Status Date / Time No Known Allergies Allergy Verified 11/20/20 11:36 [No Known Allergies*] Plan I have reviewed the history and physical and performed a pertinent physical examination on my patient. No changes have occurred unless specified.
--- NOTE | 2021-03-12 08:17 | P.CONAN_ITS ---
[facility] Active Problems Active Problems: All Active Problems (Updated 12/04/20 @ 00:02 by Background Yossi platt) Major depressive disorder, recurrent severe without psychotic features (Acute) OCD (obsessive compulsive disorder) (Acute) Abnormal finding on EKG (Acute) Depression (Acute) Past Medical History Medical History Depression Major depressive disorder, recurrent severe without psychotic features OCD (obsessive compulsive disorder) S/P ECT (electroconvulsive therapy) Family History Family History Mother CHF (congestive heart failure) Surgical History Surgical History No history of previous surgery History of Problems with Anesthesia: No Social History Social History Household Members: Spouse Housing: Condominium Do you presently have visiting nurse or other home services: No Patient Tobacco Use Status: Never used Tobacco Use of substances other than those prescribed or required for medical reasons: No Currently Displaying Signs/Symptoms of Drug Intoxication Withdrawal: No Have you been hit, kicked, punched, or otherwise hurt by someone within the past year? If so, by whom?: No Do you feel safe in your current relationship?: Yes Is there a partner from a previous relationship who is making you feel unsafe now?: No Are you made to feel afraid or neglected: No Spiritual Healthcare Practices: Patient practices yoga. Are you DNR?: No Advance Directives: No Advance Directives Information Provided: No Do you have thoughts of harming others: None Do you have a plan to hurt others: No Plan Recently lost weight without trying: Yes How much weight loss: 2-13 pounds Nutrition Risks: No Nutritional Risk Patient : No : No Poor oral hygiene: No service: No Sexual orientation: Straight/Heterosexual Meds Allergies Allergy/AdvReac Type Severity Reaction Status Date / Time No Known Allergies Allergy Verified 11/20/20 11:36 [No Known Allergies*] Active Medications: Current Medications Generic Name Dose Route Start Last Admin Trade Name Freq PRN Reason Stop Dose Admin Acetaminophen 650 mg 03/11/21 09:44 Acetaminophen 325 Mg Tablet PO Q6H PRN Headache/Pain Mild Scale (1-3) Al Hydroxide/Mg Hydroxide 30 ml 08/24/21 09:44 Magnesium Hydrox/Alum Hydrox 30 Ml Oral.Susp PO Q6H PRN Heartburn/Nausea Hydroxyzine HCl 25 mg 03/11/21 09:44 Hydroxyzine Hcl 25 Mg Tablet PO BEDTIME PRN Anxiety Magnesium Hydroxide 30 ml 03/11/21 09:44 Milk Of Magnesia 30 Ml Oral.Susp PO DAILY PRN Constipation Quetiapine Fumarate 50 mg 03/11/21 11:31 Quetiapine Fumarate 50 Mg Tablet PO BID PRN Anxiety Quetiapine Fumarate 200 mg 03/11/21 21:00 03/11/21 20:35 Quetiapine Fumarate 200 Mg Tablet PO 200 mg BEDTIME DENISSE Administration Trazodone HCl 50 mg 03/11/21 09:44 Trazodone Hcl 50 Mg Tablet PO BEDTIME PRN Insomnia Venlafaxine HCl 225 mg 03/12/21 09:00 Venlafaxine Hcl Er 75 Mg Cap.Er.24h PO DAILY DENISSE Exam Exam Date and Time: March 12, 2021 0817 Height,Weight and Vital Signs: Height 5 ft 4 in Weight 50.349 kg Last Vital Signs Temp 97.4 F 03/12/21 07:13 Pulse 89 03/12/21 07:13 Resp 16 03/12/21 07:13 BP 148/93 H 03/12/21 07:13 Pulse Ox 99 03/12/21 07:13 Pertinent Lab Results Pertinent Lab Results: Laboratory Tests 03/11/21 08:31 COVID-19 ([facility]) Negative COVID-19 Clin Com See Note Airway Mallampati Class: II TM Dist: >3cm Neck ROM: Full Loose/Missing/Broken Teeth: No Heart: RRR Lungs: CTA Assessment and Plan Assessment Anesthesia Assessment: Anesthesia Plan Discussed and Chart Reviewed Final Anesthetic Review History of Problems with Anesthesia: No NPO: Yes ASA Class: II Final Preanesthetic Review: Meds/Allgs Chart Reviewed, Consent Obtained/Reviewed and Anes Risks/Benef Reviewed Patient Risk: Low Procedure Risk: Low Anesthetic Plan Anesthetic Plan: GA Disposition: Standard PACU
--- NOTE | 2021-03-12 08:47 | ECG_ITS ---
Test Reason : POST ECT Blood Pressure : / mmHG Vent. Rate : 061 BPM Atrial Rate : 061 BPM P-R Int : 170 ms QRS Dur : 074 ms QT Int : 422 ms P-R-T Axes : 074 022 044 degrees QTc Int : 424 ms Normal sinus rhythm Normal ECG When compared with ECG of 10-MAR-2021 14:11, No significant change was found Referred By: Gwendolyn Watson Electronically Signed By:ALYSSA RANDALL
[2021-03-12] MEDS: Venlafaxine HCl ER 75 MG CAP.ER.24H 225 MG PO (09:55)
--- NOTE | 2021-03-12 11:06 | HO.ECTPROC ---
ECT Procedure Note Diagnosis/Treatment Date of Service: 03/12/21 Diagnosis: Major Depressive Disorder Current Treatment Number: 1 Treatment: Series ECT Settings Device: THYMATRON DGx Electrode Placement: Right Unilateral Program/Pulse Width: 0.25 Energy Percent: 20 Seizure Duration By EEG (in seconds): 66 Medications Administration General Anesthetic: Etomidate (12) Muscle Relaxant: Succinylcholine (80) Ancillary Medications Analgesics: Torodol - Pre ECT Anti-emetics: Zofran - Pre ECT Cardiovascular Medications: Labetolol (5 plus 5) Miscillaneous Medications: Propofol (30 mg) Airway Management Airway Management: Bag Mask Ventilation Treatment Recommendations Electrode Placement: Right Unilateral Program/Pulse Width: 0.25 Energy Percent: 15 Notes: post op htn would give 5 labetolol just post stimulation
[2021-03-12] MEDS: QUEtiapine Fumarate 50 MG TABLET PO (13:30)
[2021-03-12] MEDS: QUEtiapine Fumarate 200 MG TABLET PO (20:13)
[2021-03-13] VITALS (7 sets, daily range): BP systolic 81–137; BP diastolic 58–74; PULSE 66–95; RESP 16–17; TEMP 36.1–36.8; O2SAT 96–97; BMI 20.1
[2021-03-13] MEDS: Venlafaxine HCl ER 75 MG CAP.ER.24H 225 MG PO (09:20)
[2021-03-13] MEDS: QUEtiapine Fumarate 25 MG TABLET PO (14:01)
[2021-03-13] MEDS: QUEtiapine Fumarate 200 MG TABLET PO (20:35)
--- NOTE | 2021-03-13 21:40 | HO.PSYCHPN ---
Subjective Subjective Date of Service: 03/13/21 Reason For Visit: Depression w/SI Subjective Notes: [place] Warning and Conditional Voluntary Healthcare Proxy: Yes Guardianship: No Interim History: Patient is depressed ruminating irrational ideas about her being a bad person people not wanting to be around her needs much reassurance and support Medication Compliance: Yes Side effects from medications: No Attending Groups: Intermittent Review of Systems Medical Review of Systems: unchanged Mental Status Exam Mental Status Exam Patient Appearance: Perspiring Patient Orientation: Person, Place, Time and Situation Level of Consciousness: Awake Patient Behavior: Appropriate and Anxious Mood Description: Depressed, Anxious and Apprehensive Affect Description: Anxious, Sad, Nervous and Apprehensive Patient Cognition Impaired: No Ability to Follow Directions: Good Speech Pattern: Clear Memory Description: Intact Hallucinations: None Delusions: Present (GUILTY RUMINATIONS OF DELUSIONAL PROPORTIONS) Thought Process: Rumination Thought Content: positive for Preoccupation and positive for Suicidal Ideation Depressive Symptoms: Increased Anxiety, Increased Irritability, Significant Weight Loss, Feelings of Worthlessness, Hopelessness, Feelings of Guilt, Increased Fatigue, Thoughts of /Suicide and Difficulty Concentrating Judgement: Fair Judgement and Insight: GUILTY RUMINATIONS PATIENT DOES UNDERSTAND SHE SUFFERS FROM CLINICAL DEPRESSION AND IS ACCEPTING TREATMENT Diagnostics Vital Signs (24Hr): Vital Signs - 24 hr 03/13/21 06:00 03/13/21 18:00 Temperature 97.0 F 98.3 F Pulse Rate 83 79 Respiratory Rate 17 Blood Pressure 132/64 137/61 Pulse Oximetry 97 97 Body Mass Index 20.1 Imaging Radiology Impressions: ITS Impressions Head CT 03/11/21 14:00 IMPRESSION: No acute intracranial abnormality. Global cerebral volume loss and moderate chronic microangiopathy. Medications Medications Current Medications Generic Name Dose Route Start Last Admin Trade Name Freq PRN Reason Stop Dose Admin Acetaminophen 650 mg 03/11/21 09:44 Acetaminophen 325 Mg Tablet PO Q6H PRN Headache/Pain Mild Scale (1-3) Acetaminophen 650 mg 03/12/21 08:39 Acetaminophen 325 Mg Tablet PO ONCE PRN Pain, Mild (Pain Scale 1-3) Al Hydroxide/Mg Hydroxide 30 ml 03/11/21 09:44 Magnesium Hydrox/Alum Hydrox 30 Ml Oral.Susp PO Q6H PRN Heartburn/Nausea Hydroxyzine HCl 25 mg 03/11/21 09:44 Hydroxyzine Hcl 25 Mg Tablet PO BEDTIME PRN Anxiety Magnesium Hydroxide 30 ml 03/11/21 09:44 Milk Of Magnesia 30 Ml Oral.Susp PO DAILY PRN Constipation Multivitamins 1 tab 03/13/21 12:00 03/13/21 12:38 B-Complex With Vitamin C Tablet PO 1 tab DAILY DENISSE Administration Ondansetron HCl 4 mg 03/12/21 08:39 Ondansetron Hcl 4 Mg/2 Ml Vial IVPUSH ONCE PRN Nausea and Vomiting Quetiapine Fumarate 50 mg 03/11/21 11:31 03/12/21 13:30 Quetiapine Fumarate 50 Mg Tablet PO 50 mg BID PRN Administration Anxiety Quetiapine Fumarate 200 mg 03/11/21 21:00 03/13/21 20:35 Quetiapine Fumarate 200 Mg Tablet PO 200 mg BEDTIME DENISSE Administration Quetiapine Fumarate 25 mg 03/13/21 13:30 03/13/21 14:01 Quetiapine Fumarate 25 Mg Tablet PO 25 mg BID@0830,1330 DENISSE Administration Trazodone HCl 50 mg 03/11/21 09:44 Trazodone Hcl 50 Mg Tablet PO BEDTIME PRN Insomnia Venlafaxine HCl 225 mg 03/12/21 09:00 03/13/21 09:20 Venlafaxine Hcl Er 75 Mg Cap.Er.24h PO 225 mg DAILY DENISSE Administration Allergies Allergies Allergy/AdvReac Type Severity Reaction Status Date / Time No Known Allergies Allergy Verified 11/20/20 11:36 [No Known Allergies*] Assessment & Plan Assessment & Plan (1) Major depressive disorder, recurrent severe without psychotic features: Status: Acute Code(s): F33.2 - Major depressive disorder, recurrent severe without psychotic features Assessment and Plan: 80 year old patient admitted to for scheduled ECT. She has a history of ECT. She has no history of aortic stenosis, asthma, COPD, atrial fibrillation, coronary artery disease, diabetes, hypertension, ICD, anticoagulation, . EKG shows no ischemic changes?QTc Int : 457 ms. No medical contraindications noted at this time for ECT. Tolerated 1st ECT well will give beta-matthew pre ECT Greater than 50% of the session was spent on counseling and/or coordination of care Reason for contiued inpatient stay Substantial Risk for: harm to self and rapid decompensation
--- NOTE | 2021-03-13 22:26 | PC.NURSE ---
PT walked out to nurse station at 10:20p and stated that she had just fallen and hit her head, PT stated she got up got dizzy and fell. VSS, POC 89. PT has no dizziness, no nausea, no neurological, no chest pain. Nurse supervisor body assembly and hospitalist notified. PT not on blood thinners. PT has bump on forehead and bled from nose for 2 minutes, now that has stopped. PT is sitting in DR being closely monitored. Nurse will continue to monitor PT closely.
[2021-03-13 22:27] LABS: Glucose, Whole Blood 89 mg/dL (60-115)
--- NOTE | 2021-03-13 22:50 | PM.EVENT ---
Event Note Date of Service: 03/14/21 Event Note: received call that pt had a fall. on my exam, pt sitting in chair, reports that she got up fast from her bed, felt dizzy and fell face forward, hitting her face to the ground. she denies LOC, no n/v, no chest pain, no plapitations. She has a bump on her right eyebrow regiong. Obtained head and orbital CT- negative for acute pathology. orthostatic vitals positive with a significant drop in systomic bp from sitting to standing. gave 1 l of LR bolus with improvement of her vitals. will place on maintainance fluids 1 bag
[2021-03-13] MEDS: Lactated Ringers 1,000 ML 999 ML IV (23:21)
[2021-03-14] VITALS (8 sets, daily range): BP systolic 115–157; BP diastolic 59–81; PULSE 67–85; RESP 14; TEMP 36.6–37; O2SAT 97
[2021-03-14] MEDS: Lactated Ringers 1,000 ML 100 ML IVCONT (00:33)
--- NOTE | 2021-03-14 05:24 | PC.NURSE ---
PT tolerating fluids well. IV site to PT's right antecubital patent, no swelling, no redness, no infiltrate. Dressing clean dry and intact. ECT cancelled for today. Hospitalist updated on orthostatic BP's.
--- NOTE | 2021-03-14 06:45 | PC.NURSE ---
Addendum entered by Lisa Jarrett RN 03/14/21 06:51: PT IV line pulled at 06:30 tip intact, no issues. Original Note: New order from hospitalist to pull IV line, due to PT VSS. IV line pulled no issues, no bleeding, pain, redness to site. PT states, I am not dizzy
[2021-03-14] MEDS: QUEtiapine Fumarate 25 MG TABLET PO ×2 (09:47→14:47)
[2021-03-14] MEDS: Venlafaxine HCl ER 75 MG CAP.ER.24H 225 MG PO (09:48)
--- NOTE | 2021-03-14 12:14 | MHC.CLN ---
Addendum entered by Shelbi Almeida RD 03/14/21 12:17: RD WILL FOLLOW UP WEEKLY. Original Note: F/U APPEARS TO HAVE FAVORABLE WEIGHT GAIN, WITH CURRENT WEIGHT 53.3 KG. VISITED AT LUNCH AND PRESENT. ATE 100% OF SANDWICH AND PLEASED WITH FOOD. CONTINUE REGULAR DIET WITH ENSURE 240 ML BID.
--- NOTE | 2021-03-14 14:28 | HO.PSYCHPN ---
Subjective Subjective Date of Service: 03/14/21 Reason For Visit: Depression w/SI Subjective Notes: Conditional Voluntary Healthcare Proxy: Yes Guardianship: No Medication Compliance: Yes Side effects from medications: Yes Attending Groups: Yes Review of Systems Acute medical concerns: Yes had head ct scan after fall Medical Review of Systems: changed Mental Status Exam Mental Status Exam Patient Appearance: Perspiring Patient Orientation: Person, Place, Time and Situation Level of Consciousness: Awake Patient Behavior: Appropriate and Anxious Mood Description: Depressed, Anxious and Apprehensive Affect Description: Anxious, Sad, Nervous and Apprehensive Patient Cognition Impaired: No Ability to Follow Directions: Good Speech Pattern: Clear Memory Description: Intact Hallucinations: None Delusions: Present (GUILTY RUMINATIONS OF DELUSIONAL PROPORTIONS) Thought Process: Rumination Thought Content: positive for Preoccupation and positive for Suicidal Ideation Depressive Symptoms: Increased Anxiety, Increased Irritability, Significant Weight Loss, Feelings of Worthlessness, Hopelessness, Feelings of Guilt, Increased Fatigue, Thoughts of /Suicide and Difficulty Concentrating Judgement: Fair Judgement and Insight: GUILTY RUMINATIONS PATIENT DOES UNDERSTAND SHE SUFFERS FROM CLINICAL DEPRESSION AND IS ACCEPTING TREATMENT Diagnostics Vital Signs (24Hr): Vital Signs - 24 hr 03/13/21 18:00 03/13/21 22:20 03/13/21 22:42 Temperature 98.3 F Pulse Rate 79 95 88 Respiratory Rate 17 16 Blood Pressure 137/61 100/74 136/65 Pulse Oximetry 97 96 03/13/21 22:45 03/13/21 22:50 03/13/21 23:59 Temperature Pulse Rate 90 82 66 Respiratory Rate Blood Pressure 81/58 L 119/58 L 121/60 Pulse Oximetry 03/14/21 00:02 03/14/21 00:05 03/14/21 06:05 Temperature Pulse Rate 68 68 67 Respiratory Rate Blood Pressure 137/62 120/66 147/70 H Pulse Oximetry 03/14/21 06:08 03/14/21 06:18 03/14/21 08:00 Temperature 97.9 F Pulse Rate 68 70 78 Respiratory Rate 14 Blood Pressure 137/78 134/77 157/70 H Pulse Oximetry 97 03/14/21 10:00 Temperature Pulse Rate 78 Respiratory Rate Blood Pressure 120/80 Pulse Oximetry Body Mass Index 20.1 Labs Labs: Laboratory Results - last 48 hr 03/13/21 22:24 POC Glucose 89 Imaging Radiology Impressions: ITS Impressions Head CT 03/11/21 14:00 IMPRESSION: No acute intracranial abnormality. Global cerebral volume loss and moderate chronic microangiopathy. Head CT 03/13/21 23:20 IMPRESSION: No acute intracranial findings. No fracture identified. Inferior right frontal scalp hematoma. Orbit CT 03/13/21 23:20 IMPRESSION: No acute intracranial findings. No fracture identified. Inferior right frontal scalp hematoma. Medications Medications Current Medications Generic Name Dose Route Start Last Admin Trade Name Freq PRN Reason Stop Dose Admin Acetaminophen 650 mg 03/11/21 09:44 Acetaminophen 325 Mg Tablet PO Q6H PRN Headache/Pain Mild Scale (1-3) Acetaminophen 650 mg 03/12/21 08:39 Acetaminophen 325 Mg Tablet PO ONCE PRN Pain, Mild (Pain Scale 1-3) Al Hydroxide/Mg Hydroxide 30 ml 03/11/21 09:44 Magnesium Hydrox/Alum Hydrox 30 Ml Oral.Susp PO Q6H PRN Heartburn/Nausea Hydroxyzine HCl 25 mg 03/11/21 09:44 Hydroxyzine Hcl 25 Mg Tablet PO BEDTIME PRN Anxiety Magnesium Hydroxide 30 ml 03/11/21 09:44 Milk Of Magnesia 30 Ml Oral.Susp PO DAILY PRN Constipation Multivitamins 1 tab 03/13/21 12:00 03/14/21 09:48 B-Complex With Vitamin C Tablet PO 1 tab DAILY DENISSE Administration Ondansetron HCl 4 mg 03/12/21 08:39 Ondansetron Hcl 4 Mg/2 Ml Vial IVPUSH ONCE PRN Nausea and Vomiting Quetiapine Fumarate 50 mg 03/11/21 11:31 03/12/21 13:30 Quetiapine Fumarate 50 Mg Tablet PO 50 mg BID PRN Administration Anxiety Quetiapine Fumarate 200 mg 03/11/21 21:00 03/13/21 20:35 Quetiapine Fumarate 200 Mg Tablet PO 200 mg BEDTIME DENISSE Administration Quetiapine Fumarate 25 mg 03/13/21 13:30 03/14/21 09:47 Quetiapine Fumarate 25 Mg Tablet PO 25 mg BID@0830,1330 DENISSE Administration Trazodone HCl 50 mg 03/11/21 09:44 Trazodone Hcl 50 Mg Tablet PO BEDTIME PRN Insomnia Venlafaxine HCl 225 mg 03/12/21 09:00 03/14/21 09:48 Venlafaxine Hcl Er 75 Mg Cap.Er.24h PO 225 mg DAILY DENISSE Administration Allergies Allergies Allergy/AdvReac Type Severity Reaction Status Date / Time No Known Allergies Allergy Verified 11/20/20 11:36 [No Known Allergies*] Assessment & Plan Assessment & Plan (1) Major depressive disorder, recurrent severe without psychotic features: Status: Acute Code(s): F33.2 - Major depressive disorder, recurrent severe without psychotic features Assessment and Plan: Pt had fall last nite ? dehydration ? response to seroquel but had been on 200 hs previously ect held x 1 remains quite depressed start mirtazapine 3.75 hs orbit and brain ect neg Greater than 50% of the session was spent on counseling and/or coordination of care Reason for contiued inpatient stay Substantial Risk for: harm to self and rapid decompensation
[2021-03-14] MEDS: Mirtazapine 7.5 MG TABLET 3.75 MG PO (19:53)
[2021-03-14] MEDS: QUEtiapine Fumarate 100 MG TABLET PO (19:56)
[2021-03-15] MEDS: QUEtiapine Fumarate 25 MG TABLET PO ×2 (08:30→14:12)
[2021-03-15] MEDS: Venlafaxine HCl ER 75 MG CAP.ER.24H 225 MG PO (08:30)
[2021-03-15 08:33] VITALS: BP 138/65; PULSE 72; RESP 16; TEMP 36.7; O2SAT 97
--- NOTE | 2021-03-15 13:29 | HO.PSYCHPN ---
Subjective Subjective Date of Service: 03/15/21 Reason For Visit: Depression w/SI Subjective Notes: [place] Warning and Conditional Voluntary Guardianship: No Interim History: pt Ruminating depressed difficulty keeping things in perspective. No medical consequences to recent fall Obsess ruminating on how bad she has been on a as a person Medication Compliance: Yes Mental Status Exam Mental Status Exam Patient Appearance: Perspiring Patient Orientation: Person, Place, Time and Situation Level of Consciousness: Awake Patient Behavior: Appropriate and Anxious Mood Description: Depressed, Anxious and Apprehensive Affect Description: Anxious, Sad, Nervous and Apprehensive Patient Cognition Impaired: No Ability to Follow Directions: Good Speech Pattern: Clear Memory Description: Intact Hallucinations: None Delusions: Present (GUILTY RUMINATIONS OF DELUSIONAL PROPORTIONS) Thought Process: Rumination Thought Content: positive for Preoccupation and positive for Suicidal Ideation Depressive Symptoms: Increased Anxiety, Increased Irritability, Significant Weight Loss, Feelings of Worthlessness, Hopelessness, Feelings of Guilt, Increased Fatigue, Thoughts of /Suicide and Difficulty Concentrating Judgement: Fair Judgement and Insight: Difficulty keeping things in perspective Diagnostics Vital Signs (24Hr): Vital Signs - 24 hr 03/14/21 18:00 03/15/21 08:33 Temperature 98.6 F 98.1 F Pulse Rate 80 72 Respiratory Rate 16 Blood Pressure 120/60 138/65 Pulse Oximetry 97 97 Body Mass Index 20.1 Labs Labs: Laboratory Results - last 48 hr 03/13/21 22:24 POC Glucose 89 Imaging Radiology Impressions: ITS Impressions Head CT 03/11/21 14:00 IMPRESSION: No acute intracranial abnormality. Global cerebral volume loss and moderate chronic microangiopathy. Head CT 03/13/21 23:20 IMPRESSION: No acute intracranial findings. No fracture identified. Inferior right frontal scalp hematoma. Orbit CT 03/13/21 23:20 IMPRESSION: No acute intracranial findings. No fracture identified. Inferior right frontal scalp hematoma. Medications Medications Current Medications Generic Name Dose Route Start Last Admin Trade Name Freq PRN Reason Stop Dose Admin Acetaminophen 650 mg 03/11/21 09:44 Acetaminophen 325 Mg Tablet PO Q6H PRN Headache/Pain Mild Scale (1-3) Acetaminophen 650 mg 03/12/21 08:39 Acetaminophen 325 Mg Tablet PO ONCE PRN Pain, Mild (Pain Scale 1-3) Al Hydroxide/Mg Hydroxide 30 ml 03/11/21 09:44 Magnesium Hydrox/Alum Hydrox 30 Ml Oral.Susp PO Q6H PRN Heartburn/Nausea Hydroxyzine HCl 25 mg 03/11/21 09:44 Hydroxyzine Hcl 25 Mg Tablet PO BEDTIME PRN Anxiety Magnesium Hydroxide 30 ml 03/11/21 09:44 Milk Of Magnesia 30 Ml Oral.Susp PO DAILY PRN Constipation Mirtazapine 3.75 mg 03/14/21 21:00 03/14/21 19:53 Mirtazapine 7.5 Mg Tablet PO 3.75 mg BEDTIME DENISSE Administration Multivitamins 1 tab 03/13/21 12:00 03/15/21 08:31 B-Complex With Vitamin C Tablet PO 1 tab DAILY DENISSE Administration Ondansetron HCl 4 mg 03/12/21 08:39 Ondansetron Hcl 4 Mg/2 Ml Vial IVPUSH ONCE PRN Nausea and Vomiting Quetiapine Fumarate 50 mg 03/11/21 11:31 03/12/21 13:30 Quetiapine Fumarate 50 Mg Tablet PO 50 mg BID PRN Administration Anxiety Quetiapine Fumarate 25 mg 03/13/21 13:30 03/15/21 08:30 Quetiapine Fumarate 25 Mg Tablet PO 25 mg BID@0830,1330 DENISSE Administration Quetiapine Fumarate 100 mg 03/14/21 21:00 03/14/21 19:56 Quetiapine Fumarate 100 Mg Tablet PO 100 mg BEDTIME DENISSE Administration Venlafaxine HCl 225 mg 03/12/21 09:00 03/15/21 08:30 Venlafaxine Hcl Er 75 Mg Cap.Er.24h PO 225 mg DAILY DENISSE Administration Allergies Allergies Allergy/AdvReac Type Severity Reaction Status Date / Time No Known Allergies Allergy Verified 11/20/20 11:36 [No Known Allergies*] Assessment & Plan Assessment & Plan (1) Major depressive disorder, recurrent severe without psychotic features: Status: Acute Code(s): F33.2 - Major depressive disorder, recurrent severe without psychotic features Assessment and Plan: Increased mirtazapine to 7.5 mg at bedtime continue ECT who consider Rexulti tomorrow if tolerating mirtazapine Greater than 50% of the session was spent on counseling and/or coordination of care Reason for contiued inpatient stay Substantial Risk for: harm to self and rapid decompensation
[2021-03-15 18:00] VITALS: BP 149/66; PULSE 82; RESP 16; TEMP 36.4; O2SAT 99
[2021-03-15] MEDS: Mirtazapine 7.5 MG TABLET PO (21:07)
[2021-03-15] MEDS: QUEtiapine Fumarate 100 MG TABLET PO (21:07)
[2021-03-16] MEDS: Venlafaxine HCl ER 75 MG CAP.ER.24H 225 MG PO (08:29)
[2021-03-16] MEDS: QUEtiapine Fumarate 25 MG TABLET PO (08:30)
[2021-03-16 08:31] VITALS: BP 145/56; PULSE 75; RESP 16; TEMP 36.7; O2SAT 99
--- NOTE | 2021-03-16 12:40 | HO.PSYCHPN ---
Subjective Subjective Date of Service: 03/16/21 Reason For Visit: Depression w/SI Subjective Notes: Conditional Voluntary Healthcare Proxy: No Guardianship: No Mental Status Exam Mental Status Exam Patient Appearance: Perspiring Patient Orientation: Person, Place, Time and Situation Level of Consciousness: Awake Patient Behavior: Appropriate and Anxious Mood Description: Depressed, Anxious and Apprehensive Affect Description: Anxious, Sad, Nervous and Apprehensive Patient Cognition Impaired: No Ability to Follow Directions: Good Speech Pattern: Clear Memory Description: Intact Hallucinations: None Delusions: Present (GUILTY RUMINATIONS OF DELUSIONAL PROPORTIONS) Thought Process: Rumination Thought Content: positive for Preoccupation and positive for Suicidal Ideation Depressive Symptoms: Increased Anxiety, Increased Irritability, Significant Weight Loss, Feelings of Worthlessness, Hopelessness, Feelings of Guilt, Increased Fatigue, Thoughts of /Suicide and Difficulty Concentrating Judgement: Fair Judgement and Insight: Difficulty keeping things in perspective Diagnostics Vital Signs (24Hr): Vital Signs - 24 hr 03/15/21 18:00 03/16/21 08:31 Temperature 97.5 F 98.1 F Pulse Rate 82 75 Respiratory Rate 16 16 Blood Pressure 149/66 H 145/56 H Pulse Oximetry 99 99 Body Mass Index 20.1 Imaging Radiology Impressions: ITS Impressions Head CT 03/11/21 14:00 IMPRESSION: No acute intracranial abnormality. Global cerebral volume loss and moderate chronic microangiopathy. Head CT 03/13/21 23:20 IMPRESSION: No acute intracranial findings. No fracture identified. Inferior right frontal scalp hematoma. Orbit CT 03/13/21 23:20 IMPRESSION: No acute intracranial findings. No fracture identified. Inferior right frontal scalp hematoma. Medications Medications Current Medications Generic Name Dose Route Start Last Admin Trade Name Freq PRN Reason Stop Dose Admin Acetaminophen 650 mg 03/11/21 09:44 Acetaminophen 325 Mg Tablet PO Q6H PRN Headache/Pain Mild Scale (1-3) Acetaminophen 650 mg 03/12/21 08:39 Acetaminophen 325 Mg Tablet PO ONCE PRN Pain, Mild (Pain Scale 1-3) Al Hydroxide/Mg Hydroxide 30 ml 03/11/21 09:44 Magnesium Hydrox/Alum Hydrox 30 Ml Oral.Susp PO Q6H PRN Heartburn/Nausea Hydroxyzine HCl 25 mg 03/11/21 09:44 Hydroxyzine Hcl 25 Mg Tablet PO BEDTIME PRN Anxiety Magnesium Hydroxide 30 ml 03/11/21 09:44 Milk Of Magnesia 30 Ml Oral.Susp PO DAILY PRN Constipation Mirtazapine 7.5 mg 03/15/21 21:00 03/15/21 21:07 Mirtazapine 7.5 Mg Tablet PO 7.5 mg BEDTIME DENISSE Administration Multivitamins 1 tab 03/13/21 12:00 03/16/21 08:30 B-Complex With Vitamin C Tablet PO 1 tab DAILY DENISSE Administration Ondansetron HCl 4 mg 03/12/21 08:39 Ondansetron Hcl 4 Mg/2 Ml Vial IVPUSH ONCE PRN Nausea and Vomiting Quetiapine Fumarate 50 mg 03/11/21 11:31 03/12/21 13:30 Quetiapine Fumarate 50 Mg Tablet PO 50 mg BID PRN Administration Anxiety Quetiapine Fumarate 25 mg 03/13/21 13:30 03/16/21 08:30 Quetiapine Fumarate 25 Mg Tablet PO 25 mg BID@0830,1330 DENISSE Administration Quetiapine Fumarate 100 mg 03/14/21 21:00 03/15/21 21:07 Quetiapine Fumarate 100 Mg Tablet PO 100 mg BEDTIME DENISSE Administration Venlafaxine HCl 225 mg 03/12/21 09:00 03/16/21 08:29 Venlafaxine Hcl Er 75 Mg Cap.Er.24h PO 225 mg DAILY DENISSE Administration Allergies Allergies Allergy/AdvReac Type Severity Reaction Status Date / Time No Known Allergies Allergy Verified 11/20/20 11:36 [No Known Allergies*] Assessment & Plan Assessment & Plan (1) Major depressive disorder, recurrent severe without psychotic features: Status: Acute Code(s): F33.2 - Major depressive disorder, recurrent severe without psychotic features Assessment and Plan: Increased mirtazapine to 7.5 mg at bedtime continue ECT Start olanzapine discontinue Seroquel is for severe anxiety and depressive symptoms delusional depression continue ECT tomorrow Greater than 50% of the session was spent on counseling and/or coordination of care Reason for contiued inpatient stay Substantial Risk for: harm to self and rapid decompensation
[2021-03-16] MEDS: OLANZapine 2.5 MG TABLET PO ×2 (13:29→20:31)
[2021-03-16 18:45] VITALS: BP 153/70; PULSE 86; RESP 16; TEMP 37.2; O2SAT 96
[2021-03-16] MEDS: Mirtazapine 7.5 MG TABLET PO (20:32)
[2021-03-17] VITALS (10 sets, daily range): BP systolic 139–158; BP diastolic 65–85; PULSE 58–73; RESP 16–17; TEMP 36.4–36.8; O2SAT 62–99
--- NOTE | 2021-03-17 07:28 | MHC.SHP ---
Pre-Procedural Eval Section A Date of Service: 03/17/21 The patient is an INPATIENT: Yes Changes since office visit: Yes New Medical Problems, Yes Changes in Medication and Yes Patient answered all questions; No Cold of Flu in the past 2 weeks The History & Physical has been completed within 30 days and I have reviewed it.: Yes Section B Chief Complaint: Depression w/SI Allergies: Allergies Allergy/AdvReac Type Severity Reaction Status Date / Time No Known Allergies Allergy Verified 11/20/20 11:36 [No Known Allergies*] Plan I have reviewed the history and physical and performed a pertinent physical examination on my patient. No changes have occurred unless specified.
--- NOTE | 2021-03-17 07:38 | P.CONAN_ITS ---
[facility] Active Problems Active Problems: All Active Problems (Updated 12/04/20 @ 00:02 by Background Yossi pltat) Major depressive disorder, recurrent severe without psychotic features (Acute) OCD (obsessive compulsive disorder) (Acute) Abnormal finding on EKG (Acute) Depression (Acute) Past Medical History Medical History Depression Major depressive disorder, recurrent severe without psychotic features OCD (obsessive compulsive disorder) S/P ECT (electroconvulsive therapy) Family History Family History Mother CHF (congestive heart failure) Family history of problems with anesthesia: No Surgical History Surgical History No history of previous surgery History of Problems with Anesthesia: No Social History Social History Household Members: Spouse Housing: Condominium Do you presently have visiting nurse or other home services: No Patient Tobacco Use Status: Never used Tobacco Use of substances other than those prescribed or required for medical reasons: No Currently Displaying Signs/Symptoms of Drug Intoxication Withdrawal: No Have you been hit, kicked, punched, or otherwise hurt by someone within the past year? If so, by whom?: No Do you feel safe in your current relationship?: Yes Is there a partner from a previous relationship who is making you feel unsafe now?: No Are you made to feel afraid or neglected: No Spiritual Healthcare Practices: Patient practices yoga. Are you DNR?: No Advance Directives: No Advance Directives Information Provided: No Do you have thoughts of harming others: None Do you have a plan to hurt others: No Plan Recently lost weight without trying: Yes How much weight loss: 2-13 pounds Nutrition Risks: No Nutritional Risk Patient : No : No Poor oral hygiene: No service: No Sexual orientation: Straight/Heterosexual Meds Allergies Allergy/AdvReac Type Severity Reaction Status Date / Time No Known Allergies Allergy Verified 11/20/20 11:36 [No Known Allergies*] Active Medications: Current Medications Generic Name Dose Route Start Last Admin Trade Name Freq PRN Reason Stop Dose Admin Acetaminophen 650 mg 03/11/21 09:44 Acetaminophen 325 Mg Tablet PO Q6H PRN Headache/Pain Mild Scale (1-3) Acetaminophen 650 mg 03/12/21 08:39 Acetaminophen 325 Mg Tablet PO ONCE PRN Pain, Mild (Pain Scale 1-3) Al Hydroxide/Mg Hydroxide 30 ml 03/11/21 09:44 Magnesium Hydrox/Alum Hydrox 30 Ml Oral.Susp PO Q6H PRN Heartburn/Nausea Hydroxyzine HCl 25 mg 03/11/21 09:44 Hydroxyzine Hcl 25 Mg Tablet PO BEDTIME PRN Anxiety Magnesium Hydroxide 30 ml 03/11/21 09:44 Milk Of Magnesia 30 Ml Oral.Susp PO DAILY PRN Constipation Mirtazapine 7.5 mg 03/15/21 21:00 03/16/21 20:32 Mirtazapine 7.5 Mg Tablet PO 7.5 mg BEDTIME DENISSE Administration Multivitamins 1 tab 03/13/21 12:00 03/16/21 08:30 B-Complex With Vitamin C Tablet PO 1 tab DAILY DENISSE Administration Olanzapine 2.5 mg 03/16/21 21:00 03/16/21 20:31 Olanzapine 2.5 Mg Tablet PO 2.5 mg BID DENISSE Administration Olanzapine 2.5 mg 03/16/21 16:51 Olanzapine 2.5 Mg Tablet PO DAILY PRN anxiety/restlessness Ondansetron HCl 4 mg 03/12/21 08:39 Ondansetron Hcl 4 Mg/2 Ml Vial IVPUSH ONCE PRN Nausea and Vomiting Venlafaxine HCl 225 mg 03/12/21 09:00 03/16/21 08:29 Venlafaxine Hcl Er 75 Mg Cap.Er.24h PO 225 mg DAILY DENISSE Administration Exam Exam Date and Time: March 17, 2021 0738 Height,Weight and Vital Signs: Height 5 ft 4 in Weight 53.3 kg Last Vital Signs Temp 98 F 03/17/21 06:22 Pulse 73 03/17/21 06:22 Resp 16 03/17/21 06:22 BP 156/74 H 03/17/21 06:22 Pulse Ox 98 03/17/21 06:22 Pertinent Lab Results Pertinent Lab Results: Laboratory Tests 03/11/21 03/13/21 08:31 22:24 POC Glucose 89 COVID-19 ([facility]ANG) Negative COVID-19 Clin Com See Note Airway Mallampati Class: II TM Dist: >3cm Neck ROM: Full Assessment and Plan Assessment Anesthesia Assessment: Anesthesia Plan Discussed and Chart Reviewed Final Anesthetic Review Family History of Problems with Anesthesia: No History of Problems with Anesthesia: No NPO: Yes ASA Class: II Final Preanesthetic Review: No Changes in Pt Med Stat, Meds/Allgs Chart Reviewed, Consent Obtained/Reviewed and Anes Risks/Benef Reviewed Patient Risk: Low Procedure Risk: Low Assessment/Block/Sedation in SS: Assess/Block/Sedation-SS
--- NOTE | 2021-03-17 08:01 | HO.ECTPROC ---
ECT Procedure Note Diagnosis/Treatment Date of Service: 03/17/21 Diagnosis: Major Depressive Disorder Previous ECT Date: 03/12/21 Current Treatment Number: 2 Treatment: Series Interval Clinical Notes: pt depressed ruminating passive si recent head ct after fall neg ECT Settings Device: THYMATRON DGx Electrode Placement: Right Unilateral Program/Pulse Width: 0.25 Energy Percent: 15 Seizure Duration By EEG (in seconds): 65 Medications Administration General Anesthetic: Etomidate (12) Muscle Relaxant: Succinylcholine (80) Ancillary Medications Analgesics: Torodol - Pre ECT Anti-emetics: Zofran - Pre ECT Cardiovascular Medications: Labetolol (10 mg pre tx) Miscillaneous Medications: Propofol Airway Management Airway Management: Bag Mask Ventilation Treatment Recommendations No Changes Recommended: No change Pt Tolerated Procedure w/o Issue: Yes
[2021-03-17] MEDS: Venlafaxine HCl ER 75 MG CAP.ER.24H 225 MG PO (09:58)
[2021-03-17] MEDS: OLANZapine 2.5 MG TABLET PO ×2 (09:58→20:10)
[2021-03-17] MEDS: Mirtazapine 7.5 MG TABLET PO (20:10)
--- NOTE | 2021-03-17 21:52 | HO.PSYCHPN ---
Subjective Subjective Date of Service: 03/17/21 Reason For Visit: Depression w/SI Subjective Notes: Conditional Voluntary Healthcare Proxy: Yes Guardianship: No Interim History: Patient had 2nd ECT tolerated well remains quite depressed and ruminating Mental Status Exam Mental Status Exam Patient Appearance: Perspiring Patient Orientation: Person, Place, Time and Situation Level of Consciousness: Awake Patient Behavior: Appropriate and Anxious Mood Description: Depressed, Anxious and Apprehensive Affect Description: Anxious, Sad, Nervous and Apprehensive Patient Cognition Impaired: No Ability to Follow Directions: Good Speech Pattern: Clear Memory Description: Intact Hallucinations: None Delusions: Present (GUILTY RUMINATIONS OF DELUSIONAL PROPORTIONS) Thought Process: Rumination Thought Content: positive for Preoccupation and positive for Suicidal Ideation Depressive Symptoms: Increased Anxiety, Increased Irritability, Significant Weight Loss, Feelings of Worthlessness, Hopelessness, Feelings of Guilt, Increased Fatigue, Thoughts of /Suicide and Difficulty Concentrating Judgement: Fair Judgement and Insight: Difficulty keeping things in perspective Diagnostics Vital Signs (24Hr): Vital Signs - 24 hr 03/17/21 06:13 03/17/21 06:22 03/17/21 07:57 Temperature 98.2 F 98 F 97.5 F Pulse Rate 72 73 60 Respiratory Rate 17 16 16 Blood Pressure 158/74 H 156/74 H 158/78 H Pulse Oximetry 99 98 98 03/17/21 08:02 03/17/21 08:07 03/17/21 08:12 Temperature Pulse Rate 58 62 62 Respiratory Rate 16 16 16 Blood Pressure 158/78 H 158/78 H 158/85 H Pulse Oximetry 99 95 98 03/17/21 08:27 03/17/21 08:43 03/17/21 09:00 Temperature 98.2 F 97.6 F Pulse Rate 63 62 62 Respiratory Rate 17 17 Blood Pressure 158/85 H 148/83 H 146/70 H Pulse Oximetry 98 98 62 L Body Mass Index 20.1 Imaging Radiology Impressions: ITS Impressions Head CT 03/11/21 14:00 IMPRESSION: No acute intracranial abnormality. Global cerebral volume loss and moderate chronic microangiopathy. Head CT 03/13/21 23:20 IMPRESSION: No acute intracranial findings. No fracture identified. Inferior right frontal scalp hematoma. Orbit CT 03/13/21 23:20 IMPRESSION: No acute intracranial findings. No fracture identified. Inferior right frontal scalp hematoma. Medications Medications Current Medications Generic Name Dose Route Start Last Admin Trade Name Arturoq PRN Reason Stop Dose Admin Acetaminophen 650 mg 03/11/21 09:44 Acetaminophen 325 Mg Tablet PO Q6H PRN Headache/Pain Mild Scale (1-3) Acetaminophen 650 mg 03/12/21 08:39 Acetaminophen 325 Mg Tablet PO ONCE PRN Pain, Mild (Pain Scale 1-3) Al Hydroxide/Mg Hydroxide 30 ml 03/11/21 09:44 Magnesium Hydrox/Alum Hydrox 30 Ml Oral.Susp PO Q6H PRN Heartburn/Nausea Hydroxyzine HCl 25 mg 03/11/21 09:44 Hydroxyzine Hcl 25 Mg Tablet PO BEDTIME PRN Anxiety Magnesium Hydroxide 30 ml 03/11/21 09:44 Milk Of Magnesia 30 Ml Oral.Susp PO DAILY PRN Constipation Mirtazapine 7.5 mg 03/15/21 21:00 03/17/21 20:10 Mirtazapine 7.5 Mg Tablet PO 7.5 mg BEDTIME DENISSE Administration Multivitamins 1 tab 03/13/21 12:00 03/17/21 09:58 B-Complex With Vitamin C Tablet PO 1 tab DAILY DENISSE Administration Olanzapine 2.5 mg 03/16/21 21:00 03/17/21 20:10 Olanzapine 2.5 Mg Tablet PO 2.5 mg BID DENISSE Administration Olanzapine 2.5 mg 03/16/21 16:51 Olanzapine 2.5 Mg Tablet PO DAILY PRN anxiety/restlessness Ondansetron HCl 4 mg 03/12/21 08:39 Ondansetron Hcl 4 Mg/2 Ml Vial IVPUSH ONCE PRN Nausea and Vomiting Venlafaxine HCl 225 mg 03/12/21 09:00 03/17/21 09:58 Venlafaxine Hcl Er 75 Mg Cap.Er.24h PO 225 mg DAILY DENISSE Administration Allergies Allergies Allergy/AdvReac Type Severity Reaction Status Date / Time No Known Allergies Allergy Verified 11/20/20 11:36 [No Known Allergies*] Assessment & Plan Assessment & Plan (1) Major depressive disorder, recurrent severe without psychotic features: Status: Acute Code(s): F33.2 - Major depressive disorder, recurrent severe without psychotic features Assessment and Plan: Increased mirtazapine to 7.5 mg at bedtime continue ECT Start olanzapine discontinue Seroquel is for severe anxiety and depressive symptoms delusional depression TOLERATED ECTTODAY Greater than 50% of the session was spent on counseling and/or coordination of care Reason for contiued inpatient stay Substantial Risk for: harm to self, rapid decompensation and med/psych decompensation
[2021-03-18] MEDS: Venlafaxine HCl ER 75 MG CAP.ER.24H 225 MG PO (08:01)
[2021-03-18] MEDS: OLANZapine 2.5 MG TABLET PO ×2 (08:01→21:44)
[2021-03-18 09:00] VITALS: BP 118/62; PULSE 68; TEMP 36.9; O2SAT 98
[2021-03-18 20:25] VITALS: BP 141/65; PULSE 74; RESP 16; TEMP 36.9; O2SAT 95
[2021-03-18] MEDS: Mirtazapine 7.5 MG TABLET PO (21:44)
--- NOTE | 2021-03-18 21:48 | HO.PSYCHPN ---
Subjective Subjective Date of Service: 03/18/21 Reason For Visit: Depression w/SI Subjective Notes: Conditional Voluntary Guardianship: No Medical Problems Affecting Mental Status: No Interim History: Patient continues to be depressed with ruminating Medication Compliance: Yes Attending Groups: Yes Mental Status Exam Mental Status Exam Patient Appearance: Perspiring Patient Orientation: Person, Place, Time and Situation Level of Consciousness: Awake Patient Behavior: Appropriate and Anxious Mood Description: Depressed, Anxious and Apprehensive Affect Description: Anxious, Sad, Nervous and Apprehensive Patient Cognition Impaired: No Ability to Follow Directions: Good Speech Pattern: Clear Memory Description: Intact Hallucinations: None Delusions: Present (GUILTY RUMINATIONS OF DELUSIONAL PROPORTIONS) Thought Process: Rumination Thought Content: positive for Preoccupation and positive for Suicidal Ideation Depressive Symptoms: Increased Anxiety, Increased Irritability, Significant Weight Loss, Feelings of Worthlessness, Hopelessness, Feelings of Guilt, Increased Fatigue, Thoughts of /Suicide and Difficulty Concentrating Judgement: Fair Judgement and Insight: Difficulty keeping things in perspective Diagnostics Vital Signs (24Hr): Vital Signs - 24 hr 03/18/21 09:00 Temperature 98.4 F Pulse Rate 68 Blood Pressure 118/62 Pulse Oximetry 98 Body Mass Index 20.1 Imaging Radiology Impressions: ITS Impressions Head CT 03/11/21 14:00 IMPRESSION: No acute intracranial abnormality. Global cerebral volume loss and moderate chronic microangiopathy. Head CT 03/13/21 23:20 IMPRESSION: No acute intracranial findings. No fracture identified. Inferior right frontal scalp hematoma. Orbit CT 03/13/21 23:20 IMPRESSION: No acute intracranial findings. No fracture identified. Inferior right frontal scalp hematoma. Medications Medications Current Medications Generic Name Dose Route Start Last Admin Trade Name Arturoq PRN Reason Stop Dose Admin Acetaminophen 650 mg 03/11/21 09:44 Acetaminophen 325 Mg Tablet PO Q6H PRN Headache/Pain Mild Scale (1-3) Acetaminophen 650 mg 03/12/21 08:39 Acetaminophen 325 Mg Tablet PO ONCE PRN Pain, Mild (Pain Scale 1-3) Al Hydroxide/Mg Hydroxide 30 ml 03/11/21 09:44 Magnesium Hydrox/Alum Hydrox 30 Ml Oral.Susp PO Q6H PRN Heartburn/Nausea Hydroxyzine HCl 25 mg 03/11/21 09:44 Hydroxyzine Hcl 25 Mg Tablet PO BEDTIME PRN Anxiety Magnesium Hydroxide 30 ml 03/11/21 09:44 Milk Of Magnesia 30 Ml Oral.Susp PO DAILY PRN Constipation Mirtazapine 7.5 mg 03/15/21 21:00 03/18/21 21:44 Mirtazapine 7.5 Mg Tablet PO 7.5 mg BEDTIME DENISSE Administration Multivitamins 1 tab 03/13/21 12:00 03/18/21 08:01 B-Complex With Vitamin C Tablet PO 1 tab DAILY DENISSE Administration Olanzapine 2.5 mg 03/16/21 21:00 03/18/21 21:44 Olanzapine 2.5 Mg Tablet PO 2.5 mg BID DENISSE Administration Olanzapine 2.5 mg 03/16/21 16:51 Olanzapine 2.5 Mg Tablet PO DAILY PRN anxiety/restlessness Ondansetron HCl 4 mg 03/12/21 08:39 Ondansetron Hcl 4 Mg/2 Ml Vial IVPUSH ONCE PRN Nausea and Vomiting Venlafaxine HCl 225 mg 03/12/21 09:00 03/18/21 08:01 Venlafaxine Hcl Er 75 Mg Cap.Er.24h PO 225 mg DAILY DENISSE Administration Allergies Allergies Allergy/AdvReac Type Severity Reaction Status Date / Time No Known Allergies Allergy Verified 11/20/20 11:36 [No Known Allergies*] Assessment & Plan Assessment & Plan (1) Major depressive disorder, recurrent severe without psychotic features: Status: Acute Code(s): F33.2 - Major depressive disorder, recurrent severe without psychotic features Assessment and Plan: Increased mirtazapine to 7.5 mg at bedtime continue ECT cont olanzapine for severe anxiety and depressive symptoms delusional depression cont ect Greater than 50% of the session was spent on counseling and/or coordination of care Patient educated on: diagnosis and therapeutic strategies Reason for contiued inpatient stay Substantial Risk for: harm to self and rapid decompensation
[2021-03-19] VITALS (10 sets, daily range): BP systolic 112–158; BP diastolic 63–88; PULSE 69–77; RESP 16–18; TEMP 36.7–37.1; O2SAT 95–100; BMI 20.2
--- NOTE | 2021-03-19 07:22 | P.CONAN_ITS ---
[facility] Active Problems Active Problems: All Active Problems (Updated 03/18/21 @ 00:02 by Mandy Gamble) Major depressive disorder, recurrent severe without psychotic features (Acute) OCD (obsessive compulsive disorder) (Acute) Abnormal finding on EKG (Acute) Past Medical History Medical History Depression Major depressive disorder, recurrent severe without psychotic features OCD (obsessive compulsive disorder) S/P ECT (electroconvulsive therapy) Functional capacity: independent ambulation Patient : No Family History Family History Mother CHF (congestive heart failure) Family history of problems with anesthesia: No Surgical History Surgical History No history of previous surgery History of Problems with Anesthesia: No Social History Social History Household Members: Spouse Housing: Condominium Do you presently have visiting nurse or other home services: No Patient Tobacco Use Status: Never used Tobacco Use of substances other than those prescribed or required for medical reasons: No Currently Displaying Signs/Symptoms of Drug Intoxication Withdrawal: No Have you been hit, kicked, punched, or otherwise hurt by someone within the past year? If so, by whom?: No Do you feel safe in your current relationship?: Yes Is there a partner from a previous relationship who is making you feel unsafe now?: No Are you made to feel afraid or neglected: No Spiritual Healthcare Practices: Patient practices yoga. Are you DNR?: No Advance Directives: No Advance Directives Information Provided: No Do you have thoughts of harming others: None Do you have a plan to hurt others: No Plan Recently lost weight without trying: No How much weight loss: 2-13 pounds Nutrition Risks: No Nutritional Risk Patient : No : No Poor oral hygiene: No service: No Sexual orientation: Straight/Heterosexual Meds Allergies Allergy/AdvReac Type Severity Reaction Status Date / Time No Known Allergies Allergy Verified 11/20/20 11:36 [No Known Allergies*] Active Medications: Current Medications Generic Name Dose Route Start Last Admin Trade Name Freq PRN Reason Stop Dose Admin Acetaminophen 650 mg 03/11/21 09:44 Acetaminophen 325 Mg Tablet PO Q6H PRN Headache/Pain Mild Scale (1-3) Acetaminophen 650 mg 03/12/21 08:39 Acetaminophen 325 Mg Tablet PO ONCE PRN Pain, Mild (Pain Scale 1-3) Al Hydroxide/Mg Hydroxide 30 ml 03/11/21 09:44 Magnesium Hydrox/Alum Hydrox 30 Ml Oral.Susp PO Q6H PRN Heartburn/Nausea Hydroxyzine HCl 25 mg 03/11/21 09:44 Hydroxyzine Hcl 25 Mg Tablet PO BEDTIME PRN Anxiety Magnesium Hydroxide 30 ml 03/11/21 09:44 Milk Of Magnesia 30 Ml Oral.Susp PO DAILY PRN Constipation Mirtazapine 7.5 mg 03/15/21 21:00 03/18/21 21:44 Mirtazapine 7.5 Mg Tablet PO 7.5 mg BEDTIME DENISSE Administration Multivitamins 1 tab 03/13/21 12:00 03/18/21 08:01 B-Complex With Vitamin C Tablet PO 1 tab DAILY DENISSE Administration Olanzapine 2.5 mg 03/16/21 21:00 03/18/21 21:44 Olanzapine 2.5 Mg Tablet PO 2.5 mg BID DENISSE Administration Olanzapine 2.5 mg 03/16/21 16:51 Olanzapine 2.5 Mg Tablet PO DAILY PRN anxiety/restlessness Ondansetron HCl 4 mg 03/12/21 08:39 Ondansetron Hcl 4 Mg/2 Ml Vial IVPUSH ONCE PRN Nausea and Vomiting Venlafaxine HCl 225 mg 03/12/21 09:00 03/18/21 08:01 Venlafaxine Hcl Er 75 Mg Cap.Er.24h PO 225 mg DAILY DENISSE Administration Exam Exam Date and Time: March 19, 2021 0722 Height,Weight and Vital Signs: Height 5 ft 4 in Weight 53.524 kg Last Vital Signs Temp 98.4 F 03/19/21 06:32 Pulse 70 03/19/21 06:32 Resp 16 03/19/21 06:32 BP 130/76 03/19/21 06:32 Pulse Ox 95 03/19/21 06:32 Pertinent Lab Results Pertinent Lab Results: Laboratory Tests 03/11/21 03/13/21 08:31 22:24 POC Glucose 89 COVID-19 ([facility]) Negative COVID-19 Clin Com See Note Airway TM Dist: >3cm Neck ROM: Full Heart: RRR Lungs: CTA Assessment and Plan Final Anesthetic Review Family History of Problems with Anesthesia: No History of Problems with Anesthesia: No
--- NOTE | 2021-03-19 08:12 | MHC.SHP ---
Pre-Procedural Eval Section A Date of Service: 03/19/21 The patient is an INPATIENT: Yes Changes since office visit: No Cold of Flu in the past 2 weeks, No New Medical Problems, No Changes in Medication and No Patient answered all questions The History & Physical has been completed within 30 days and I have reviewed it.: Yes Section B Chief Complaint: Depression w/SI Allergies: Allergies Allergy/AdvReac Type Severity Reaction Status Date / Time No Known Allergies Allergy Verified 11/20/20 11:36 [No Known Allergies*] Plan I have reviewed the history and physical and performed a pertinent physical examination on my patient. No changes have occurred unless specified.
--- NOTE | 2021-03-19 08:12 | HO.ECTPROC ---
ECT Procedure Note Diagnosis/Treatment Date of Service: 03/19/21 Current Treatment Number: 3 Treatment: Series Interval Clinical Notes: Less dysphoric, no side effects, she feels better with ECT ECT Settings Device: THYMATRON DGx Electrode Placement: Right Unilateral Program/Pulse Width: 0.25 Energy Percent: 15 Seizure Duration By EEG (in seconds): 71 By Motor Observation (in seconds): 41 Medications Administration General Anesthetic: Etomidate (12) Muscle Relaxant: Succinylcholine (80) Ancillary Medications Analgesics: Torodol - Pre ECT Anti-emetics: Zofran - Pre ECT Miscillaneous Medications: Propofol Airway Management Airway Management: Bag Mask Ventilation Treatment Recommendations No Changes Recommended: No change Pt Tolerated Procedure w/o Issue: Yes
[2021-03-19] MEDS: Venlafaxine HCl ER 75 MG CAP.ER.24H 225 MG PO (11:04)
[2021-03-19] MEDS: OLANZapine 2.5 MG TABLET PO ×2 (11:05→20:01)
--- NOTE | 2021-03-19 14:37 | HO.POSTANES ---
Post Anesthesia Evaluation Post Anesthesia Evaluation Vital Signs: Vital Signs Temp Pulse Resp BP Pulse Ox 03/19/21 10:23 98.0 F 74 16 112/74 97 03/19/21 09:20 98.1 F 71 18 138/69 98 03/19/21 09:05 73 17 155/72 H 97 03/19/21 08:50 98.1 F 77 16 135/74 97 03/19/21 08:45 72 18 158/75 H 96 03/19/21 08:40 69 16 133/65 96 03/19/21 08:35 98.4 F 73 16 135/71 97 03/19/21 06:32 98.4 F 70 16 130/76 95 03/19/21 05:52 98.7 F 75 16 136/88 100 Anesthesia: General Mental Status: Awake Pain Control: Satisfactory Nausea/Vomiting: None Hydration: Adequate
[2021-03-19] MEDS: hydrOXYzine HCL 25 MG TABLET PO (17:50)
[2021-03-19] MEDS: Mirtazapine 7.5 MG TABLET PO (20:01)
--- NOTE | 2021-03-19 21:54 | HO.PSYCHPN ---
Subjective Subjective Date of Service: 03/19/21 Reason For Visit: Depression w/SI Subjective Notes: Conditional Voluntary Interim History: Patient tolerated today's ECT some improvement noted still tends to ruminate about the past be guilty Medication Compliance: Yes Mental Status Exam Mental Status Exam Patient Appearance: Perspiring Patient Orientation: Person, Place, Time and Situation Level of Consciousness: Awake Patient Behavior: Appropriate and Anxious Mood Description: Depressed, Anxious and Apprehensive Affect Description: Anxious, Sad, Nervous and Apprehensive Patient Cognition Impaired: No Ability to Follow Directions: Good Speech Pattern: Clear Memory Description: Intact Hallucinations: None Delusions: Present (GUILTY RUMINATIONS OF DELUSIONAL PROPORTIONS) Thought Process: Rumination Thought Content: positive for Preoccupation and positive for Suicidal Ideation Depressive Symptoms: Increased Anxiety, Increased Irritability, Significant Weight Loss, Feelings of Worthlessness, Hopelessness, Feelings of Guilt, Increased Fatigue, Thoughts of /Suicide and Difficulty Concentrating Judgement: Fair Judgement and Insight: Difficulty keeping things in perspective Diagnostics Vital Signs (24Hr): Vital Signs - 24 hr 03/19/21 05:52 03/19/21 06:32 03/19/21 08:35 Temperature 98.7 F 98.4 F 98.4 F Pulse Rate 75 70 73 Respiratory Rate 16 16 16 Blood Pressure 136/88 130/76 135/71 Pulse Oximetry 100 95 97 03/19/21 08:40 03/19/21 08:45 03/19/21 08:50 Temperature 98.1 F Pulse Rate 69 72 77 Respiratory Rate 16 18 16 Blood Pressure 133/65 158/75 H 135/74 Pulse Oximetry 96 96 97 03/19/21 09:05 03/19/21 09:20 03/19/21 10:23 Temperature 98.1 F 98.0 F Pulse Rate 73 71 74 Respiratory Rate 17 18 16 Blood Pressure 155/72 H 138/69 112/74 Pulse Oximetry 97 98 97 Body Mass Index 20.2 Imaging Radiology Impressions: ITS Impressions Head CT 03/11/21 14:00 IMPRESSION: No acute intracranial abnormality. Global cerebral volume loss and moderate chronic microangiopathy. Head CT 03/13/21 23:20 IMPRESSION: No acute intracranial findings. No fracture identified. Inferior right frontal scalp hematoma. Orbit CT 03/13/21 23:20 IMPRESSION: No acute intracranial findings. No fracture identified. Inferior right frontal scalp hematoma. Medications Medications Current Medications Generic Name Dose Route Start Last Admin Trade Name Arturoq PRN Reason Stop Dose Admin Acetaminophen 650 mg 03/11/21 09:44 Acetaminophen 325 Mg Tablet PO Q6H PRN Headache/Pain Mild Scale (1-3) Acetaminophen 650 mg 03/12/21 08:39 Acetaminophen 325 Mg Tablet PO ONCE PRN Pain, Mild (Pain Scale 1-3) Acetaminophen 650 mg 03/19/21 07:23 Acetaminophen 325 Mg Tablet PO ONCE PRN Pain, Mild (Pain Scale 1-3) Al Hydroxide/Mg Hydroxide 30 ml 03/11/21 09:44 Magnesium Hydrox/Alum Hydrox 30 Ml Oral.Susp PO Q6H PRN Heartburn/Nausea Hydroxyzine HCl 25 mg 03/11/21 09:44 03/19/21 17:50 Hydroxyzine Hcl 25 Mg Tablet PO 25 mg BEDTIME PRN Administration Anxiety Magnesium Hydroxide 30 ml 03/11/21 09:44 Milk Of Magnesia 30 Ml Oral.Susp PO DAILY PRN Constipation Mirtazapine 7.5 mg 03/15/21 21:00 03/19/21 20:01 Mirtazapine 7.5 Mg Tablet PO 7.5 mg BEDTIME DENISSE Administration Multivitamins 1 tab 03/13/21 12:00 03/19/21 11:05 B-Complex With Vitamin C Tablet PO 1 tab DAILY DENISSE Administration Olanzapine 2.5 mg 03/16/21 21:00 03/19/21 20:01 Olanzapine 2.5 Mg Tablet PO 2.5 mg BID DENISSE Administration Olanzapine 2.5 mg 03/16/21 16:51 Olanzapine 2.5 Mg Tablet PO DAILY PRN anxiety/restlessness Ondansetron HCl 4 mg 03/12/21 08:39 Ondansetron Hcl 4 Mg/2 Ml Vial IVPUSH ONCE PRN Nausea and Vomiting Ondansetron HCl 4 mg 03/19/21 07:23 Ondansetron Hcl 4 Mg/2 Ml Vial IVPUSH ONCE PRN Nausea and Vomiting Oxycodone HCl 5 mg 03/19/21 07:23 Oxycodone Hcl Immed Release 5 Mg Tablet PO ONCE PRN Pain, Severe (Pain Scale 7-10) Venlafaxine HCl 225 mg 03/12/21 09:00 03/19/21 11:04 Venlafaxine Hcl Er 75 Mg Cap.Er.24h PO 225 mg DAILY DENISSE Administration Allergies Allergies Allergy/AdvReac Type Severity Reaction Status Date / Time No Known Allergies Allergy Verified 11/20/20 11:36 [No Known Allergies*] Assessment & Plan Assessment & Plan (1) Major depressive disorder, recurrent severe without psychotic features: Status: Acute Code(s): F33.2 - Major depressive disorder, recurrent severe without psychotic features Assessment and Plan: Increased mirtazapine to 7.5 mg at bedtime continue ECT cont olanzapine for severe anxiety and depressive symptoms delusional depression cont ect ongoing hold off on discharge till patient shows improvement Greater than 50% of the session was spent on counseling and/or coordination of care Reason for contiued inpatient stay Substantial Risk for: harm to self and rapid decompensation
[2021-03-20 07:00] VITALS: BMI 20.6
[2021-03-20] MEDS: OLANZapine 2.5 MG TABLET PO ×2 (08:22→20:16)
[2021-03-20] MEDS: Venlafaxine HCl ER 75 MG CAP.ER.24H 225 MG PO (08:22)
[2021-03-20 08:43] VITALS: BP 154/76; PULSE 75; TEMP 36.6; O2SAT 92
[2021-03-20 13:00] VITALS: BP 121/66; PULSE 76; TEMP 36.8; O2SAT 96
[2021-03-20 18:00] VITALS: BP 153/70; PULSE 72; TEMP 36.8; O2SAT 94
[2021-03-20] MEDS: Mirtazapine 7.5 MG TABLET PO (20:16)
--- NOTE | 2021-03-20 21:03 | HO.PSYCHPN ---
Subjective Subjective Date of Service: 03/20/21 Reason For Visit: Depression w/SI Subjective Notes: Conditional Voluntary Guardianship: No Interim History: Pt has been ongoing depressed ruminating needing cognitive redirection Mental Status Exam Mental Status Exam Patient Appearance: Perspiring Patient Orientation: Person, Place, Time and Situation Level of Consciousness: Awake Patient Behavior: Appropriate and Anxious Mood Description: Depressed, Anxious and Apprehensive Affect Description: Anxious, Sad, Nervous and Apprehensive Patient Cognition Impaired: No Ability to Follow Directions: Good Speech Pattern: Clear Memory Description: Intact Hallucinations: None Delusions: Present (GUILTY RUMINATIONS OF DELUSIONAL PROPORTIONS) Thought Process: Rumination Thought Content: positive for Preoccupation and positive for Suicidal Ideation Depressive Symptoms: Increased Anxiety, Increased Irritability, Significant Weight Loss, Feelings of Worthlessness, Hopelessness, Feelings of Guilt, Increased Fatigue, Thoughts of /Suicide and Difficulty Concentrating Judgement: Fair Judgement and Insight: Difficulty keeping things in perspective Diagnostics Vital Signs (24Hr): Vital Signs - 24 hr 03/20/21 08:43 03/20/21 13:00 03/20/21 18:00 Temperature 97.9 F 98.3 F 98.3 F Pulse Rate 75 76 72 Blood Pressure 154/76 H 121/66 153/70 H Pulse Oximetry 92 96 94 Body Mass Index 20.6 Imaging Radiology Impressions: ITS Impressions Head CT 03/11/21 14:00 IMPRESSION: No acute intracranial abnormality. Global cerebral volume loss and moderate chronic microangiopathy. Head CT 03/13/21 23:20 IMPRESSION: No acute intracranial findings. No fracture identified. Inferior right frontal scalp hematoma. Orbit CT 03/13/21 23:20 IMPRESSION: No acute intracranial findings. No fracture identified. Inferior right frontal scalp hematoma. Medications Medications Current Medications Generic Name Dose Route Start Last Admin Trade Name Freq PRN Reason Stop Dose Admin Acetaminophen 650 mg 03/11/21 09:44 Acetaminophen 325 Mg Tablet PO Q6H PRN Headache/Pain Mild Scale (1-3) Acetaminophen 650 mg 03/12/21 08:39 Acetaminophen 325 Mg Tablet PO ONCE PRN Pain, Mild (Pain Scale 1-3) Acetaminophen 650 mg 03/19/21 07:23 Acetaminophen 325 Mg Tablet PO ONCE PRN Pain, Mild (Pain Scale 1-3) Al Hydroxide/Mg Hydroxide 30 ml 03/11/21 09:44 Magnesium Hydrox/Alum Hydrox 30 Ml Oral.Susp PO Q6H PRN Heartburn/Nausea Hydroxyzine HCl 25 mg 03/11/21 09:44 03/19/21 17:50 Hydroxyzine Hcl 25 Mg Tablet PO 25 mg BEDTIME PRN Administration Anxiety Magnesium Hydroxide 30 ml 03/11/21 09:44 Milk Of Magnesia 30 Ml Oral.Susp PO DAILY PRN Constipation Mirtazapine 7.5 mg 03/15/21 21:00 03/20/21 20:16 Mirtazapine 7.5 Mg Tablet PO 7.5 mg BEDTIME DENISSE Administration Multivitamins 1 tab 03/13/21 12:00 03/20/21 08:22 B-Complex With Vitamin C Tablet PO 1 tab DAILY DENISSE Administration Olanzapine 2.5 mg 03/16/21 21:00 03/20/21 20:16 Olanzapine 2.5 Mg Tablet PO 2.5 mg BID DENISSE Administration Olanzapine 2.5 mg 03/16/21 16:51 Olanzapine 2.5 Mg Tablet PO DAILY PRN anxiety/restlessness Ondansetron HCl 4 mg 03/12/21 08:39 Ondansetron Hcl 4 Mg/2 Ml Vial IVPUSH ONCE PRN Nausea and Vomiting Ondansetron HCl 4 mg 03/19/21 07:23 Ondansetron Hcl 4 Mg/2 Ml Vial IVPUSH ONCE PRN Nausea and Vomiting Oxycodone HCl 5 mg 03/19/21 07:23 Oxycodone Hcl Immed Release 5 Mg Tablet PO ONCE PRN Pain, Severe (Pain Scale 7-10) Venlafaxine HCl 225 mg 03/12/21 09:00 03/20/21 08:22 Venlafaxine Hcl Er 75 Mg Cap.Er.24h PO 225 mg DAILY DENISSE Administration Allergies Allergies Allergy/AdvReac Type Severity Reaction Status Date / Time No Known Allergies Allergy Verified 11/20/20 11:36 [No Known Allergies*] Assessment & Plan Assessment & Plan (1) Major depressive disorder, recurrent severe without psychotic features: Status: Acute Code(s): F33.2 - Major depressive disorder, recurrent severe without psychotic features Assessment and Plan: Increased zyprexa 3.75 mg at bedtime continue ECT cont olanzapine for severe anxiety and depressive symptoms delusional depression cont ect ongoing hold off on discharge till patient shows improvement Greater than 50% of the session was spent on counseling and/or coordination of care Reason for contiued inpatient stay Substantial Risk for: harm to self and rapid decompensation
[2021-03-20 21:05] VITALS: BP 177/80
[2021-03-21] VITALS (12 sets, daily range): BP systolic 140–157; BP diastolic 59–98; PULSE 61–82; RESP 12–18; TEMP 36.4–37.3; O2SAT 93–100
[2021-03-21] MEDS: Lactated Ringers 1,000 ML 100 ML IVCONT (06:30)
--- NOTE | 2021-03-21 06:55 | P.CONAN_ITS ---
[facility] Active Problems Active Problems: All Active Problems (Updated 03/18/21 @ 00:02 by Mandy Gamble) Major depressive disorder, recurrent severe without psychotic features (Acute) OCD (obsessive compulsive disorder) (Acute) Abnormal finding on EKG (Acute) Past Medical History Medical History Depression Major depressive disorder, recurrent severe without psychotic features OCD (obsessive compulsive disorder) S/P ECT (electroconvulsive therapy) Functional capacity: independent ambulation Family History Family History Mother CHF (congestive heart failure) Family history of problems with anesthesia: No Surgical History Surgical History No history of previous surgery History of Problems with Anesthesia: No Social History Social History Household Members: Spouse Housing: Condominium Do you presently have visiting nurse or other home services: No Patient Tobacco Use Status: Never used Tobacco Use of substances other than those prescribed or required for medical reasons: No Currently Displaying Signs/Symptoms of Drug Intoxication Withdrawal: No Have you been hit, kicked, punched, or otherwise hurt by someone within the past year? If so, by whom?: No Do you feel safe in your current relationship?: Yes Is there a partner from a previous relationship who is making you feel unsafe now?: No Are you made to feel afraid or neglected: No Spiritual Healthcare Practices: Patient practices yoga. Are you DNR?: No Advance Directives: No Advance Directives Information Provided: No Do you have thoughts of harming others: None Do you have a plan to hurt others: No Plan Recently lost weight without trying: No How much weight loss: 2-13 pounds Nutrition Risks: No Nutritional Risk Patient : No : No Poor oral hygiene: No service: No Sexual orientation: Straight/Heterosexual Meds Allergies Allergy/AdvReac Type Severity Reaction Status Date / Time No Known Allergies Allergy Verified 11/20/20 11:36 [No Known Allergies*] Active Medications: Current Medications Generic Name Dose Route Start Last Admin Trade Name Freq PRN Reason Stop Dose Admin Acetaminophen 650 mg 03/11/21 09:44 Acetaminophen 325 Mg Tablet PO Q6H PRN Headache/Pain Mild Scale (1-3) Acetaminophen 650 mg 03/12/21 08:39 Acetaminophen 325 Mg Tablet PO ONCE PRN Pain, Mild (Pain Scale 1-3) Acetaminophen 650 mg 03/19/21 07:23 Acetaminophen 325 Mg Tablet PO ONCE PRN Pain, Mild (Pain Scale 1-3) Al Hydroxide/Mg Hydroxide 30 ml 03/11/21 09:44 Magnesium Hydrox/Alum Hydrox 30 Ml Oral.Susp PO Q6H PRN Heartburn/Nausea Hydroxyzine HCl 25 mg 03/11/21 09:44 03/19/21 17:50 Hydroxyzine Hcl 25 Mg Tablet PO 25 mg BEDTIME PRN Administration Anxiety Magnesium Hydroxide 30 ml 03/11/21 09:44 Milk Of Magnesia 30 Ml Oral.Susp PO DAILY PRN Constipation Mirtazapine 7.5 mg 03/15/21 21:00 03/20/21 20:16 Mirtazapine 7.5 Mg Tablet PO 7.5 mg BEDTIME DENISSE Administration Multivitamins 1 tab 03/13/21 12:00 03/20/21 08:22 B-Complex With Vitamin C Tablet PO 1 tab DAILY DENISSE Administration Olanzapine 2.5 mg 03/16/21 21:00 03/20/21 20:16 Olanzapine 2.5 Mg Tablet PO 2.5 mg BID DENISSE Administration Olanzapine 2.5 mg 03/16/21 16:51 Olanzapine 2.5 Mg Tablet PO DAILY PRN anxiety/restlessness Ondansetron HCl 4 mg 03/12/21 08:39 Ondansetron Hcl 4 Mg/2 Ml Vial IVPUSH ONCE PRN Nausea and Vomiting Ondansetron HCl 4 mg 03/19/21 07:23 Ondansetron Hcl 4 Mg/2 Ml Vial IVPUSH ONCE PRN Nausea and Vomiting Oxycodone HCl 5 mg 03/19/21 07:23 Oxycodone Hcl Immed Release 5 Mg Tablet PO ONCE PRN Pain, Severe (Pain Scale 7-10) Venlafaxine HCl 225 mg 03/12/21 09:00 03/20/21 08:22 Venlafaxine Hcl Er 75 Mg Cap.Er.24h PO 225 mg DAILY DENISSE Administration Exam Exam Date and Time: March 21, 2021 0655 Height,Weight and Vital Signs: Height 5 ft 4 in Weight 54.54 kg Last Vital Signs Temp 97.6 F 03/21/21 06:32 Pulse 70 03/21/21 06:32 Resp 16 03/21/21 06:32 BP 148/65 H 03/21/21 06:32 Pulse Ox 98 03/21/21 06:32 Pertinent Lab Results Pertinent Lab Results: Laboratory Tests 03/11/21 03/13/21 08:31 22:24 POC Glucose 89 COVID-19 ([facility]) Negative COVID-19 Clin Com See Note Airway Mallampati Class: II TM Dist: >3cm Neck ROM: Full Assessment and Plan Final Anesthetic Review Family History of Problems with Anesthesia: No History of Problems with Anesthesia: No
--- NOTE | 2021-03-21 07:07 | MHC.SHP ---
Pre-Procedural Eval Section A Date of Service: 03/21/21 The patient is an INPATIENT: Yes Changes since office visit: No Cold of Flu in the past 2 weeks, No New Medical Problems, No Changes in Medication and No Patient answered all questions The History & Physical has been completed within 30 days and I have reviewed it.: Yes Section B Chief Complaint: Depression w/SI Allergies: Allergies Allergy/AdvReac Type Severity Reaction Status Date / Time No Known Allergies Allergy Verified 11/20/20 11:36 [No Known Allergies*] Plan I have reviewed the history and physical and performed a pertinent physical examination on my patient. No changes have occurred unless specified.
--- NOTE | 2021-03-21 07:07 | HO.ECTPROC ---
ECT Procedure Note Diagnosis/Treatment Date of Service: 03/21/21 Previous ECT Date: 03/19/21 Current Treatment Number: 4 Treatment: Series Interval Clinical Notes: The patient reported improvement of dysphoria, no side effects with previous ECT. ECT Settings Device: THYMATRON DGx Electrode Placement: Right Unilateral Program/Pulse Width: 0.25 Energy Percent: 15 Seizure Duration By EEG (in seconds): 68 By Motor Observation (in seconds): 41 Medications Administration General Anesthetic: Etomidate (12) Muscle Relaxant: Succinylcholine (80) Ancillary Medications Analgesics: Torodol - Pre ECT Anti-emetics: Zofran - Pre ECT Miscillaneous Medications: Propofol Airway Management Airway Management: Bag Mask Ventilation Treatment Recommendations No Changes Recommended: No change Pt Tolerated Procedure w/o Issue: Yes
[2021-03-21] MEDS: Venlafaxine HCl ER 75 MG CAP.ER.24H 225 MG PO (09:54)
[2021-03-21] MEDS: OLANZapine 2.5 MG TABLET PO ×2 (09:54→19:55)
--- NOTE | 2021-03-21 11:21 | PC.NURSE ---
Addendum entered by Honey Mendez RN 03/21/21 19:08: Bashir Miranda notified of Orthostatic readings Original Note: Orthostatic Blood Pressure readings are assessed. 1st Set Right Arm Lying: BP:181/91 HR 75 94% Room Air RR 16 Sitting: BP:173/87 HR 71 97% Room Air RR 17 Standing: BP:193/115 HR 82 97% RR 18 2nd Set Left Arm Lying: BP: 157/72 HR 78 94% Sitting: BP: 156/74 HR 75 98% Standing: BP: 155/79 HR 78 92% 3rd Set Right Arm Lying: BP: 175/84 HR 75 95% Sitting: BP: 165/79 HR 72 97% Standing: BP: 169/86 HR 74 98%
--- NOTE | 2021-03-21 13:57 | HO.PSYCHPN ---
Subjective Subjective Date of Service: 03/21/21 Reason For Visit: Depression w/SI Subjective Notes: Conditional Voluntary Interim History: Nursing staff reported that the patient has been seclusive but she looks better, staff has reported that she looks despondent. Today she was assessed before the ECT and she reported that she was doing fairly well and she is responding positively to the ECT. According to her , she becomes paranoid and with psychotic guilt whenever she is depressed. At baseline, she does not report any psychotic guilt over the previous infidelity several years ago. Her reported that he is not going to divorce her Review of Systems Acute medical concerns: No Medical Review of Systems: unchanged Mental Status Exam Mental Status Exam Patient Appearance: Well Grooomed Patient Orientation: Person Level of Consciousness: Awake Patient Behavior: Appropriate Mood Description: Calm Affect Description: Constricted Patient Cognition Impaired: No Ability to Follow Directions: Good Speech Pattern: Clear Memory Description: Intact Hallucinations: None Delusions: Not Present Thought Process: Goal Oriented Thought Content: positive for Intact Judgement: Fair Diagnostics Vital Signs (24Hr): Vital Signs - 24 hr 03/20/21 18:00 03/20/21 21:05 03/21/21 05:59 Temperature 98.3 F 98.1 F Pulse Rate 72 73 Respiratory Rate 18 Blood Pressure 153/70 H 177/80 H 145/84 H Pulse Oximetry 94 100 03/21/21 06:32 03/21/21 06:57 03/21/21 07:30 Temperature 97.6 F 98.2 F Pulse Rate 70 67 Respiratory Rate 16 15 Blood Pressure 148/65 H 140/66 H Pulse Oximetry 98 93 100 03/21/21 07:35 03/21/21 07:40 03/21/21 07:45 Temperature Pulse Rate 63 63 64 Respiratory Rate 14 14 12 Blood Pressure 157/94 H 153/65 H 145/73 H Pulse Oximetry 99 100 100 03/21/21 08:00 03/21/21 08:14 03/21/21 08:50 Temperature 98.2 F 98.0 F Pulse Rate 61 69 68 Respiratory Rate 18 18 18 Blood Pressure 155/98 H 156/59 H 146/65 H Pulse Oximetry 96 99 93 03/21/21 09:00 Temperature 98 F Pulse Rate 68 Respiratory Rate 16 Blood Pressure 146/65 H Pulse Oximetry 93 Body Mass Index 20.6 Imaging Radiology Impressions: ITS Impressions Head CT 03/11/21 14:00 IMPRESSION: No acute intracranial abnormality. Global cerebral volume loss and moderate chronic microangiopathy. Head CT 03/13/21 23:20 IMPRESSION: No acute intracranial findings. No fracture identified. Inferior right frontal scalp hematoma. Orbit CT 03/13/21 23:20 IMPRESSION: No acute intracranial findings. No fracture identified. Inferior right frontal scalp hematoma. Medications Medications Current Medications Generic Name Dose Route Start Last Admin Trade Name Freq PRN Reason Stop Dose Admin Acetaminophen 650 mg 03/11/21 09:44 Acetaminophen 325 Mg Tablet PO Q6H PRN Headache/Pain Mild Scale (1-3) Acetaminophen 650 mg 03/12/21 08:39 Acetaminophen 325 Mg Tablet PO ONCE PRN Pain, Mild (Pain Scale 1-3) Acetaminophen 650 mg 03/19/21 07:23 Acetaminophen 325 Mg Tablet PO ONCE PRN Pain, Mild (Pain Scale 1-3) Acetaminophen 650 mg 03/21/21 06:57 Acetaminophen 325 Mg Tablet PO ONCE PRN Pain, Mild (Pain Scale 1-3) Al Hydroxide/Mg Hydroxide 30 ml 03/11/21 09:44 Magnesium Hydrox/Alum Hydrox 30 Ml Oral.Susp PO Q6H PRN Heartburn/Nausea Hydroxyzine HCl 25 mg 03/11/21 09:44 03/19/21 17:50 Hydroxyzine Hcl 25 Mg Tablet PO 25 mg BEDTIME PRN Administration Anxiety Magnesium Hydroxide 30 ml 03/11/21 09:44 Milk Of Magnesia 30 Ml Oral.Susp PO DAILY PRN Constipation Mirtazapine 7.5 mg 03/15/21 21:00 03/20/21 20:16 Mirtazapine 7.5 Mg Tablet PO 7.5 mg BEDTIME DENISSE Administration Multivitamins 1 tab 03/13/21 12:00 03/21/21 09:54 B-Complex With Vitamin C Tablet PO 1 tab DAILY DENISSE Administration Olanzapine 2.5 mg 03/16/21 21:00 03/21/21 09:54 Olanzapine 2.5 Mg Tablet PO 2.5 mg BID DENISSE Administration Olanzapine 2.5 mg 03/16/21 16:51 Olanzapine 2.5 Mg Tablet PO DAILY PRN anxiety/restlessness Ondansetron HCl 4 mg 03/12/21 08:39 Ondansetron Hcl 4 Mg/2 Ml Vial IVPUSH ONCE PRN Nausea and Vomiting Ondansetron HCl 4 mg 03/19/21 07:23 Ondansetron Hcl 4 Mg/2 Ml Vial IVPUSH ONCE PRN Nausea and Vomiting Ondansetron HCl 4 mg 03/21/21 06:57 Ondansetron Hcl 4 Mg/2 Ml Vial IVPUSH ONCE PRN Nausea and Vomiting Oxycodone HCl 5 mg 03/19/21 07:23 Oxycodone Hcl Immed Release 5 Mg Tablet PO ONCE PRN Pain, Severe (Pain Scale 7-10) Venlafaxine HCl 225 mg 03/12/21 09:00 03/21/21 09:54 Venlafaxine Hcl Er 75 Mg Cap.Er.24h PO 225 mg DAILY DENISSE Administration Allergies Allergies Allergy/AdvReac Type Severity Reaction Status Date / Time No Known Allergies Allergy Verified 11/20/20 11:36 [No Known Allergies*] Assessment & Plan Assessment & Plan (1) Major depressive disorder, recurrent severe without psychotic features: Status: Acute Code(s): F33.2 - Major depressive disorder, recurrent severe without psychotic features Assessment and Plan: Increased zyprexa 3.75 mg at bedtime continue ECT cont olanzapine for severe anxiety and depressive symptoms delusional depression cont ect ongoing hold off on discharge till patient shows improvement Greater than 50% of the session was spent on counseling and/or coordination of care Reason for contiued inpatient stay Substantial Risk for: inability to function, rapid decompensation and med/psych decompensation
--- NOTE | 2021-03-21 15:44 | MHC.CLN ---
F/U VISITED WITH PATIENT WHILE PRESENT. REPORTS THAT SHE IS EATING WELL. CONTINUES WITH FAVORABLE, MODERATE WEIGHT GAIN. CONTINUE REGULAR DIET WITH ENSURE 240 ML BIB. FOLLOW WEEKLY.
[2021-03-21] MEDS: Mirtazapine 7.5 MG TABLET PO (19:55)
[2021-03-22 06:00] VITALS: BP 168/92; PULSE 80; TEMP 36.9; O2SAT 95
[2021-03-22] MEDS: OLANZapine 2.5 MG TABLET PO ×2 (08:14→20:54)
[2021-03-22] MEDS: Venlafaxine HCl ER 75 MG CAP.ER.24H 225 MG PO (08:14)
--- NOTE | 2021-03-22 11:50 | HO.PSYCHPN ---
Subjective Subjective Date of Service: 03/23/21 Reason For Visit: Depression w/SI Subjective Notes: Conditional Voluntary Interim History: Pt reports feeling discouraged. She continues to report depressed mood but adamantly denies suicidal or homicidal ideation. She reports sleep is poor- waking up multiple times, unable to stay asleep. She reports some anxiety. She reports appetite is fair. She reports some constipation- currently on medications that can cause constipation (remeron, olanzapine)- will monitor. Per nursing, no behavioral concerns, encouraged to attend groups. Medication Compliance: Yes Side effects from medications: Yes (constipation) Review of Systems Review of Systems Denies any recent fever chills or decrease in appetite respiratory denies any shortness of breath coverage pr denies chest pain cardiac denies chest pain gastrointestinal denies any dysphagia abdominal pain nausea vomiting or diarrhea genitourinary denies any dysuria frequency or hematuria musculoskeletal denies any joint pain or swelling neuropsych denies any weakness or seizures all other systems reviewed are negative Constitutional: Reports excessive sweating and Reports poor appetite Endocrine: Reports excessive sweating Diagnostics Vital Signs (24Hr): Vital Signs - 24 hr 03/22/21 21:06 03/23/21 06:00 Temperature 97.6 F 98.3 F Pulse Rate 80 76 Respiratory Rate 17 Blood Pressure 145/69 H 139/67 Pulse Oximetry 98 98 Body Mass Index 20.6 Imaging Radiology Impressions: ITS Impressions Head CT 03/11/21 14:00 IMPRESSION: No acute intracranial abnormality. Global cerebral volume loss and moderate chronic microangiopathy. Head CT 03/13/21 23:20 IMPRESSION: No acute intracranial findings. No fracture identified. Inferior right frontal scalp hematoma. Orbit CT 03/13/21 23:20 IMPRESSION: No acute intracranial findings. No fracture identified. Inferior right frontal scalp hematoma. Medications Medications Current Medications Generic Name Dose Route Start Last Admin Trade Name Freq PRN Reason Stop Dose Admin Acetaminophen 650 mg 03/11/21 09:44 Acetaminophen 325 Mg Tablet PO Q6H PRN Headache/Pain Mild Scale (1-3) Acetaminophen 650 mg 03/12/21 08:39 Acetaminophen 325 Mg Tablet PO ONCE PRN Pain, Mild (Pain Scale 1-3) Acetaminophen 650 mg 03/19/21 07:23 Acetaminophen 325 Mg Tablet PO ONCE PRN Pain, Mild (Pain Scale 1-3) Acetaminophen 650 mg 03/21/21 06:57 Acetaminophen 325 Mg Tablet PO ONCE PRN Pain, Mild (Pain Scale 1-3) Al Hydroxide/Mg Hydroxide 30 ml 03/11/21 09:44 Magnesium Hydrox/Alum Hydrox 30 Ml Oral.Susp PO Q6H PRN Heartburn/Nausea Hydroxyzine HCl 25 mg 03/11/21 09:44 03/19/21 17:50 Hydroxyzine Hcl 25 Mg Tablet PO 25 mg BEDTIME PRN Administration Anxiety Magnesium Hydroxide 30 ml 03/11/21 09:44 Milk Of Magnesia 30 Ml Oral.Susp PO DAILY PRN Constipation Mirtazapine 15 mg 03/22/21 21:00 03/22/21 20:54 Mirtazapine 15 Mg Tablet PO 15 mg BEDTIME DENISSE Administration Multivitamins 1 tab 03/13/21 12:00 03/23/21 08:38 B-Complex With Vitamin C Tablet PO 1 tab DAILY DENISSE Administration Olanzapine 2.5 mg 03/16/21 21:00 03/23/21 08:38 Olanzapine 2.5 Mg Tablet PO 2.5 mg BID DENISSE Administration Olanzapine 2.5 mg 03/16/21 16:51 Olanzapine 2.5 Mg Tablet PO DAILY PRN anxiety/restlessness Ondansetron HCl 4 mg 03/12/21 08:39 Ondansetron Hcl 4 Mg/2 Ml Vial IVPUSH ONCE PRN Nausea and Vomiting Ondansetron HCl 4 mg 03/19/21 07:23 Ondansetron Hcl 4 Mg/2 Ml Vial IVPUSH ONCE PRN Nausea and Vomiting Ondansetron HCl 4 mg 03/21/21 06:57 Ondansetron Hcl 4 Mg/2 Ml Vial IVPUSH ONCE PRN Nausea and Vomiting Oxycodone HCl 5 mg 03/19/21 07:23 Oxycodone Hcl Immed Release 5 Mg Tablet PO ONCE PRN Pain, Severe (Pain Scale 7-10) Venlafaxine HCl 225 mg 03/12/21 09:00 03/23/21 08:38 Venlafaxine Hcl Er 75 Mg Cap.Er.24h PO 225 mg DAILY DENISSE Administration Allergies Allergies Allergy/AdvReac Type Severity Reaction Status Date / Time No Known Allergies Allergy Verified 11/20/20 11:36 [No Known Allergies*] Assessment & Plan Assessment & Plan (1) Major depressive disorder, recurrent severe without psychotic features: Status: Acute Code(s): F33.2 - Major depressive disorder, recurrent severe without psychotic features Assessment and Plan: PLAN 1. Continue zyprexa 3.75 mg at bedtime, continue ECT , Venlafaxine 2. Increase remeron to 15mg po qhs. 3. Aftercare planning. Greater than 50% of the session was spent on counseling and/or coordination of care Reason for contiued inpatient stay Substantial Risk for: inability to function
[2021-03-22] MEDS: Mirtazapine 15 MG TABLET PO (20:54)
[2021-03-22 21:06] VITALS: BP 145/69; PULSE 80; RESP 17; TEMP 36.4; O2SAT 98
[2021-03-23 06:00] VITALS: BP 139/67; PULSE 76; TEMP 36.8; O2SAT 98
--- NOTE | 2021-03-23 08:28 | P.PNPSI_ITS ---
Subjective Subjective Date of Service: 03/25/21 Reason For Visit: Depression w/SI Interim History: Pt reports feeling a little bit better She continues to report depressed mood but adamantly denies suicidal or homicidal ideation. She reports sleep better last night with increase dose of remeron. She reports some anxiety. She reports appetite is fair. She reports some constipation- currently on medications that can cause constipation (remeron, olanzapine)- will monitor. Per nursing, no behavioral concerns, encouraged to attend groups. Review of Systems Review of Systems Denies any recent fever chills or decrease in appetite respiratory denies any shortness of breath coverage pr denies chest pain cardiac denies chest pain gastrointestinal denies any dysphagia abdominal pain nausea vomiting or diarrh ea genitourinary denies any dysuria frequency or hematuria musculoskeletal denies any joint pain or swelling neuropsych denies any weakness or seizures all other systems reviewed are negative Constitutional: Reports excessive sweating and Reports poor appetite Endocrine: Reports excessive sweating Mental Status Exam Mental Status Exam Patient Appearance: Well Grooomed Patient Orientation: Person Level of Consciousness: Awake Patient Behavior: Appropriate Mood Description: Calm Affect Description: Constricted Patient Cognition Impaired: No Ability to Follow Directions: Good Speech Pattern: Clear Memory Description: Intact Diagnostics Vital Signs (24Hr): Vital Signs - 24 hr 03/24/21 18:00 Temperature 98.5 F Pulse Rate 78 Respiratory Rate 20 Blood Pressure 151/69 H Pulse Oximetry 97 Body Mass Index 20.6 Imaging Radiology Impressions: ITS Impressions Head CT 03/11/21 14:00 IMPRESSION: No acute intracranial abnormality. Global cerebral volume loss and moderate chronic microangiopathy. Head CT 03/13/21 23:20 IMPRESSION: No acute intracranial findings. No fracture identified. Inferior right frontal scalp hematoma. Orbit CT 03/13/21 23:20 IMPRESSION: No acute intracranial findings. No fracture identified. Inferior right frontal scalp hematoma. Medications Medications Current Medications Generic Name Dose Route Start Last Admin Trade Name Freq PRN Reason Stop Dose Admin Acetaminophen 650 mg 03/11/21 09:44 Acetaminophen 325 Mg Tablet PO Q6H PRN Headache/Pain Mild Scale (1-3) Acetaminophen 650 mg 03/12/21 08:39 Acetaminophen 325 Mg Tablet PO ONCE PRN Pain, Mild (Pain Scale 1-3) Acetaminophen 650 mg 03/19/21 07:23 Acetaminophen 325 Mg Tablet PO ONCE PRN Pain, Mild (Pain Scale 1-3) Acetaminophen 650 mg 03/21/21 06:57 Acetaminophen 325 Mg Tablet PO ONCE PRN Pain, Mild (Pain Scale 1-3) Al Hydroxide/Mg Hydroxide 30 ml 03/11/21 09:44 Magnesium Hydrox/Alum Hydrox 30 Ml Oral.Susp PO Q6H PRN Heartburn/Nausea Hydroxyzine HCl 25 mg 03/11/21 09:44 03/24/21 20:49 Hydroxyzine Hcl 25 Mg Tablet PO 25 mg BEDTIME PRN Administration Anxiety Magnesium Hydroxide 30 ml 03/11/21 09:44 Milk Of Magnesia 30 Ml Oral.Susp PO DAILY PRN Constipation Mirtazapine 15 mg 03/22/21 21:00 03/24/21 20:43 Mirtazapine 15 Mg Tablet PO 15 mg BEDTIME DENISSE Administration Multivitamins 1 tab 03/13/21 12:00 03/24/21 09:25 B-Complex With Vitamin C Tablet PO 1 tab DAILY DENISSE Administration Olanzapine 2.5 mg 03/16/21 21:00 03/24/21 20:43 Olanzapine 2.5 Mg Tablet PO 2.5 mg BID DENISSE Administration Olanzapine 2.5 mg 03/16/21 16:51 Olanzapine 2.5 Mg Tablet PO DAILY PRN anxiety/restlessness Ondansetron HCl 4 mg 03/12/21 08:39 Ondansetron Hcl 4 Mg/2 Ml Vial IVPUSH ONCE PRN Nausea and Vomiting Ondansetron HCl 4 mg 03/19/21 07:23 Ondansetron Hcl 4 Mg/2 Ml Vial IVPUSH ONCE PRN Nausea and Vomiting Ondansetron HCl 4 mg 03/21/21 06:57 Ondansetron Hcl 4 Mg/2 Ml Vial IVPUSH ONCE PRN Nausea and Vomiting Venlafaxine HCl 225 mg 03/12/21 09:00 03/24/21 09:25 Venlafaxine Hcl Er 75 Mg Cap.Er.24h PO 225 mg DAILY DENISSE Administration Allergies Allergies Allergy/AdvReac Type Severity Reaction Status Date / Time No Known Allergies Allergy Verified 11/20/20 11:36 [No Known Allergies*] Assessment & Plan Assessment & Plan (1) Major depressive disorder, recurrent severe without psychotic features: Status: Acute Code(s): F33.2 - Major depressive disorder, recurrent severe without psychotic features Assessment and Plan: PLAN 1. Continue zyprexa 3.75 mg at bedtime, continue ECT , Venlafaxine 2. Increase remeron to 15mg po qhs. 3. Aftercare planning. Greater than 50% of the session was spent on counseling and/or coordination of care Reason for contiued inpatient stay Substantial Risk for: inability to function
[2021-03-23] MEDS: Venlafaxine HCl ER 75 MG CAP.ER.24H 225 MG PO (08:38)
[2021-03-23] MEDS: OLANZapine 2.5 MG TABLET PO ×2 (08:38→22:19)
--- NOTE | 2021-03-23 11:00 | HO.POSTANES ---
Post Anesthesia Evaluation Post Anesthesia Evaluation Vital Signs: Vital Signs Temp Pulse BP Pulse Ox 03/23/21 06:00 98.3 F 76 139/67 98 Anesthesia: General Mental Status: Awake Pain Control: Satisfactory Nausea/Vomiting: None Hydration: Adequate Anesthesia-Related Issues: No Anes. Related Issues
[2021-03-23 18:00] VITALS: BP 130/62; PULSE 80; RESP 16; TEMP 37.3; O2SAT 97
[2021-03-23] MEDS: Mirtazapine 15 MG TABLET PO (22:19)
[2021-03-24 08:00] VITALS: BP 151/74; PULSE 71; TEMP 37; O2SAT 98
[2021-03-24] MEDS: OLANZapine 2.5 MG TABLET PO ×2 (09:25→20:43)
[2021-03-24] MEDS: Venlafaxine HCl ER 75 MG CAP.ER.24H 225 MG PO (09:25)
[2021-03-24 18:00] VITALS: BP 151/69; PULSE 78; RESP 20; TEMP 36.9; O2SAT 97
[2021-03-24] MEDS: Mirtazapine 15 MG TABLET PO (20:43)
[2021-03-24] MEDS: hydrOXYzine HCL 25 MG TABLET PO (20:49)
[2021-03-25 06:00] VITALS: BP 136/65; PULSE 72; RESP 16; TEMP 35.8; O2SAT 100
[2021-03-25] MEDS: Venlafaxine HCl ER 75 MG CAP.ER.24H 225 MG PO (09:47)
[2021-03-25] MEDS: OLANZapine 2.5 MG TABLET PO (09:49)
[2021-03-25 17:24] VITALS: BP 140/72; PULSE 83; RESP 18; TEMP 36.9; O2SAT 98
[2021-03-25] MEDS: OLANZapine 5 MG TABLET PO (19:58)
[2021-03-25] MEDS: Mirtazapine 15 MG TABLET PO (19:58)
--- NOTE | 2021-03-25 21:30 | P.PNPSI_ITS ---
Subjective Subjective Date of Service: 03/25/21 Reason For Visit: Depression w/SI Subjective Notes: Conditional Voluntary Guardianship: No Medical Problems Affecting Mental Status: No Interim History: Patient seen in psychiatric follow-up with her . Her is able to reassure the patient that there is no thought for divorce nor do her children want them to separate. Patient has limited ability to reality check her negative thinking patterns and needs much reassurance. No significant side effects to ECT. Patient continues to be agreeable to continue treatment tend has always responded to ECT Mental Status Exam Mental Status Exam Narrative: Patient casually dressed anxious in appearance. Mood depressed anxious constricted. Thoughts that somehow she has done bad things to her family she was not a good person also preoccupied with the Holocaust now because her heritage is [place] impulse control intact denies any active thoughts of self-harm no hallucinations Diagnostics Vital Signs (24Hr): Vital Signs - 24 hr 03/25/21 06:00 03/25/21 17:24 Temperature 96.5 F L 98.5 F Pulse Rate 72 83 Respiratory Rate 16 18 Blood Pressure 136/65 140/72 H Pulse Oximetry 100 98 Body Mass Index 20.6 Imaging Radiology Impressions: ITS Impressions Head CT 03/11/21 14:00 IMPRESSION: No acute intracranial abnormality. Global cerebral volume loss and moderate chronic microangiopathy. Head CT 03/13/21 23:20 IMPRESSION: No acute intracranial findings. No fracture identified. Inferior right frontal scalp hematoma. Orbit CT 03/13/21 23:20 IMPRESSION: No acute intracranial findings. No fracture identified. Inferior right frontal scalp hematoma. Medications Medications Current Medications Generic Name Dose Route Start Last Admin Trade Name Freq PRN Reason Stop Dose Admin Acetaminophen 650 mg 03/11/21 09:44 Acetaminophen 325 Mg Tablet PO Q6H PRN Headache/Pain Mild Scale (1-3) Acetaminophen 650 mg 03/12/21 08:39 Acetaminophen 325 Mg Tablet PO ONCE PRN Pain, Mild (Pain Scale 1-3) Acetaminophen 650 mg 03/19/21 07:23 Acetaminophen 325 Mg Tablet PO ONCE PRN Pain, Mild (Pain Scale 1-3) Acetaminophen 650 mg 03/21/21 06:57 Acetaminophen 325 Mg Tablet PO ONCE PRN Pain, Mild (Pain Scale 1-3) Al Hydroxide/Mg Hydroxide 30 ml 03/11/21 09:44 Magnesium Hydrox/Alum Hydrox 30 Ml Oral.Susp PO Q6H PRN Heartburn/Nausea Hydroxyzine HCl 25 mg 03/11/21 09:44 03/24/21 20:49 Hydroxyzine Hcl 25 Mg Tablet PO 25 mg BEDTIME PRN Administration Anxiety Magnesium Hydroxide 30 ml 03/11/21 09:44 Milk Of Magnesia 30 Ml Oral.Susp PO DAILY PRN Constipation Mirtazapine 15 mg 03/22/21 21:00 03/25/21 19:58 Mirtazapine 15 Mg Tablet PO 15 mg BEDTIME DENISSE Administration Multivitamins 1 tab 03/13/21 12:00 03/25/21 09:47 B-Complex With Vitamin C Tablet PO 1 tab DAILY DENISSE Administration Olanzapine 2.5 mg 03/16/21 16:51 Olanzapine 2.5 Mg Tablet PO DAILY PRN anxiety/restlessness Olanzapine 5 mg 03/25/21 21:00 03/25/21 19:58 Olanzapine 5 Mg Tablet PO 5 mg BEDTIME DENISSE Administration Olanzapine 2.5 mg 03/26/21 09:00 Olanzapine 2.5 Mg Tablet PO DAILY DENISSE Ondansetron HCl 4 mg 03/12/21 08:39 Ondansetron Hcl 4 Mg/2 Ml Vial IVPUSH ONCE PRN Nausea and Vomiting Ondansetron HCl 4 mg 03/19/21 07:23 Ondansetron Hcl 4 Mg/2 Ml Vial IVPUSH ONCE PRN Nausea and Vomiting Ondansetron HCl 4 mg 03/21/21 06:57 Ondansetron Hcl 4 Mg/2 Ml Vial IVPUSH ONCE PRN Nausea and Vomiting Venlafaxine HCl 225 mg 03/12/21 09:00 03/25/21 09:47 Venlafaxine Hcl Er 75 Mg Cap.Er.24h PO 225 mg DAILY DENISSE Administration Allergies Allergies Allergy/AdvReac Type Severity Reaction Status Date / Time No Known Allergies Allergy Verified 11/20/20 11:36 [No Known Allergies*] Assessment & Plan Assessment & Plan (1) Major depressive disorder, recurrent severe without psychotic features: Status: Acute Code(s): F33.2 - Major depressive disorder, recurrent severe without psychotic features Assessment and Plan: PLAN 1. Continue zyprexa increase total dose to 7.5 mg continue ECT , Venlafaxine 2. Increase remeron if not effective 3. Aftercare planning. Greater than 50% of the session was spent on counseling and/or coordination of care Reason for contiued inpatient stay Substantial Risk for: inability to function and rapid decompensation
[2021-03-26] VITALS (14 sets, daily range): BP systolic 118–177; BP diastolic 64–95; PULSE 70–81; RESP 14–18; TEMP 36.4–37; O2SAT 97–100
[2021-03-26] MEDS: Lactated Ringers 1,000 ML 50 ML IVCONT (06:25)
--- NOTE | 2021-03-26 06:51 | P.CONAN_ITS ---
[facility] Active Problems Active Problems: All Active Problems (Updated 03/18/21 @ 00:02 by Mandy Gamble) Major depressive disorder, recurrent severe without psychotic features (Acute) OCD (obsessive compulsive disorder) (Acute) Abnormal finding on EKG (Acute) Past Medical History Medical History Depression Major depressive disorder, recurrent severe without psychotic features OCD (obsessive compulsive disorder) S/P ECT (electroconvulsive therapy) Functional capacity: independent ambulation Family History Family History Mother CHF (congestive heart failure) Family history of problems with anesthesia: No Surgical History Surgical History No history of previous surgery History of Problems with Anesthesia: No Social History Social History Household Members: Spouse Housing: Condominium Do you presently have visiting nurse or other home services: No Patient Tobacco Use Status: Never used Tobacco Use of substances other than those prescribed or required for medical reasons: No Currently Displaying Signs/Symptoms of Drug Intoxication Withdrawal: No Have you been hit, kicked, punched, or otherwise hurt by someone within the past year? If so, by whom?: No Do you feel safe in your current relationship?: Yes Is there a partner from a previous relationship who is making you feel unsafe now?: No Are you made to feel afraid or neglected: No Spiritual Healthcare Practices: Patient practices yoga. Are you DNR?: No Advance Directives: No Advance Directives Information Provided: No Do you have thoughts of harming others: None Do you have a plan to hurt others: No Plan Recently lost weight without trying: No How much weight loss: 2-13 pounds Nutrition Risks: No Nutritional Risk Patient : No : No Poor oral hygiene: No service: No Sexual orientation: Straight/Heterosexual Meds Allergies Allergy/AdvReac Type Severity Reaction Status Date / Time No Known Allergies Allergy Verified 11/20/20 11:36 [No Known Allergies*] Active Medications: Current Medications Generic Name Dose Route Start Last Admin Trade Name Freq PRN Reason Stop Dose Admin Acetaminophen 650 mg 03/11/21 09:44 Acetaminophen 325 Mg Tablet PO Q6H PRN Headache/Pain Mild Scale (1-3) Acetaminophen 650 mg 03/12/21 08:39 Acetaminophen 325 Mg Tablet PO ONCE PRN Pain, Mild (Pain Scale 1-3) Acetaminophen 650 mg 03/19/21 07:23 Acetaminophen 325 Mg Tablet PO ONCE PRN Pain, Mild (Pain Scale 1-3) Acetaminophen 650 mg 03/21/21 06:57 Acetaminophen 325 Mg Tablet PO ONCE PRN Pain, Mild (Pain Scale 1-3) Al Hydroxide/Mg Hydroxide 30 ml 03/11/21 09:44 Magnesium Hydrox/Alum Hydrox 30 Ml Oral.Susp PO Q6H PRN Heartburn/Nausea Hydroxyzine HCl 25 mg 03/11/21 09:44 03/24/21 20:49 Hydroxyzine Hcl 25 Mg Tablet PO 25 mg BEDTIME PRN Administration Anxiety Magnesium Hydroxide 30 ml 03/11/21 09:44 Milk Of Magnesia 30 Ml Oral.Susp PO DAILY PRN Constipation Mirtazapine 15 mg 03/22/21 21:00 03/25/21 19:58 Mirtazapine 15 Mg Tablet PO 15 mg BEDTIME DENISSE Administration Multivitamins 1 tab 03/13/21 12:00 03/25/21 09:47 B-Complex With Vitamin C Tablet PO 1 tab DAILY DENISSE Administration Olanzapine 2.5 mg 03/16/21 16:51 Olanzapine 2.5 Mg Tablet PO DAILY PRN anxiety/restlessness Olanzapine 5 mg 03/25/21 21:00 03/25/21 19:58 Olanzapine 5 Mg Tablet PO 5 mg BEDTIME DENISSE Administration Olanzapine 2.5 mg 03/26/21 09:00 Olanzapine 2.5 Mg Tablet PO DAILY DENISSE Ondansetron HCl 4 mg 03/12/21 08:39 Ondansetron Hcl 4 Mg/2 Ml Vial IVPUSH ONCE PRN Nausea and Vomiting Ondansetron HCl 4 mg 03/19/21 07:23 Ondansetron Hcl 4 Mg/2 Ml Vial IVPUSH ONCE PRN Nausea and Vomiting Ondansetron HCl 4 mg 03/21/21 06:57 Ondansetron Hcl 4 Mg/2 Ml Vial IVPUSH ONCE PRN Nausea and Vomiting Venlafaxine HCl 225 mg 03/12/21 09:00 03/25/21 09:47 Venlafaxine Hcl Er 75 Mg Cap.Er.24h PO 225 mg DAILY DENISSE Administration Exam Exam Date and Time: March 26, 202151 Height,Weight and Vital Signs: Height 5 ft 4 in Weight 54.54 kg Last Vital Signs Temp 98.6 F 03/26/21 05:30 Pulse 75 03/26/21 05:30 Resp 16 03/26/21 05:30 BP 135/64 03/26/21 05:30 Pulse Ox 98 03/26/21 05:30 Pertinent Lab Results Pertinent Lab Results: Laboratory Tests 03/11/21 03/13/21 08:31 22:24 POC Glucose 89 COVID-19 ([facility]) Negative COVID-19 Clin Com See Note Airway Mallampati Class: II (Implant and crowns laterally) TM Dist: >3cm Neck ROM: Full Heart: rrr Lungs: cta Assessment and Plan Assessment Anesthesia Assessment: Anesthesia Plan Discussed and Chart Reviewed Final Anesthetic Review Family History of Problems with Anesthesia: No History of Problems with Anesthesia: No NPO: Yes ASA Class: III Final Preanesthetic Review: No Changes in Pt Med Stat, Meds/Allgs Chart Reviewed , Consent Obtained/Reviewed and Anes Risks/Benef Reviewed Patient Risk: Intermediate Procedure Risk: Intermediate Anesthetic Plan Anesthetic Plan: GA Disposition: Standard PACU
--- NOTE | 2021-03-26 07:39 | MHC.SHP ---
Pre-Procedural Eval Section A Date of Service: 03/26/21 The patient is an INPATIENT: Yes Changes since office visit: Yes Changes in Medication and Yes Patient answered all questions; No Cold of Flu in the past 2 weeks and No New Medical Problems The History & Physical has been completed within 30 days and I have reviewed it.: Yes Section B Chief Complaint: Depression w/SI Allergies: Allergies Allergy/AdvReac Type Severity Reaction Status Date / Time No Known Allergies Allergy Verified 11/20/20 11:36 [No Known Allergies*] Plan I have reviewed the history and physical and performed a pertinent physical examination on my patient. No changes have occurred unless specified.
--- NOTE | 2021-03-26 08:36 | HO.ECTPROC ---
ECT Procedure Note Diagnosis/Treatment Date of Service: 03/26/21 Diagnosis: Major Depressive Disorder Previous ECT Date: 03/21/21 Current Treatment Number: 5 Treatment: Series Interval Clinical Notes: PT ruminating guilty irrational ruminations flat tolerating ect ECT Settings Device: THYMATRON DGx Electrode Placement: Right Unilateral Program/Pulse Width: 0.25 Energy Percent: 15 Seizure Duration By EEG (in seconds): 62 Medications Administration General Anesthetic: Etomidate (12) Muscle Relaxant: Succinylcholine Ancillary Medications Analgesics: Torodol - Pre ECT Anti-emetics: Zofran - Pre ECT Cardiovascular Medications: Labetolol Miscillaneous Medications: Propofol Airway Management Airway Management: Bag Mask Ventilation Treatment Recommendations Notes: if no change consider bifrontal Pt Tolerated Procedure w/o Issue: Yes
[2021-03-26] MEDS: OLANZapine 2.5 MG TABLET PO (09:41)
[2021-03-26] MEDS: Venlafaxine HCl ER 75 MG CAP.ER.24H 225 MG PO (09:42)
[2021-03-26] MEDS: OLANZapine 5 MG TABLET PO (20:58)
[2021-03-26] MEDS: Mirtazapine 15 MG TABLET PO (20:59)
--- NOTE | 2021-03-26 21:00 | HO.PSYCHPN ---
Subjective Subjective Date of Service: 03/26/21 Reason For Visit: Depression w/SI Subjective Notes: Conditional Voluntary Guardianship: No Interim History: pt isolative withdrawn see ect note consider change to BF Medication Compliance: Yes Mental Status Exam Mental Status Exam Narrative: Patient casually dressed anxious in appearance. Mood depressed anxious constricted. Thoughts that somehow she has done bad things to her family she was not a good person also preoccupied with the Holocaust now because her heritage is [place] impulse control intact denies any active thoughts of self-harm no hallucinations continues to ruminate Diagnostics Vital Signs (24Hr): Vital Signs - 24 hr 03/26/21 05:30 03/26/21 06:49 03/26/21 07:54 Temperature 98.6 F 97.5 F 97.9 F Pulse Rate 75 72 81 Respiratory Rate 16 18 14 Blood Pressure 135/64 118/95 H 151/83 H Pulse Oximetry 98 97 99 03/26/21 07:59 03/26/21 08:04 03/26/21 08:09 Temperature Pulse Rate 71 70 71 Respiratory Rate 14 16 16 Blood Pressure 163/83 H 163/81 H 158/83 H Pulse Oximetry 98 98 98 03/26/21 08:24 03/26/21 08:39 03/26/21 09:15 Temperature 97.5 F Pulse Rate 76 75 73 Respiratory Rate 16 16 18 Blood Pressure 161/79 H 167/88 H 177/84 H Pulse Oximetry 97 99 98 03/26/21 09:37 03/26/21 10:39 03/26/21 10:40 Temperature 97.5 F Pulse Rate 73 Respiratory Rate 18 Blood Pressure 177/84 H 136/70 140/67 H Pulse Oximetry 98 03/26/21 17:45 03/26/21 20:59 Temperature 98.6 F 98.5 F Pulse Rate 71 70 Respiratory Rate 18 17 Blood Pressure 157/74 H 140/84 H Pulse Oximetry 99 100 Body Mass Index 20.6 Imaging Radiology Impressions: ITS Impressions Head CT 03/11/21 14:00 IMPRESSION: No acute intracranial abnormality. Global cerebral volume loss and moderate chronic microangiopathy. Head CT 03/13/21 23:20 IMPRESSION: No acute intracranial findings. No fracture identified. Inferior right frontal scalp hematoma. Orbit CT 03/13/21 23:20 IMPRESSION: No acute intracranial findings. No fracture identified. Inferior right frontal scalp hematoma. Medications Medications Current Medications Generic Name Dose Route Start Last Admin Trade Name Freq PRN Reason Stop Dose Admin Acetaminophen 650 mg 03/11/21 09:44 Acetaminophen 325 Mg Tablet PO Q6H PRN Headache/Pain Mild Scale (1-3) Acetaminophen 650 mg 03/12/21 08:39 Acetaminophen 325 Mg Tablet PO ONCE PRN Pain, Mild (Pain Scale 1-3) Acetaminophen 650 mg 03/19/21 07:23 Acetaminophen 325 Mg Tablet PO ONCE PRN Pain, Mild (Pain Scale 1-3) Acetaminophen 650 mg 03/21/21 06:57 Acetaminophen 325 Mg Tablet PO ONCE PRN Pain, Mild (Pain Scale 1-3) Al Hydroxide/Mg Hydroxide 30 ml 03/11/21 09:44 Magnesium Hydrox/Alum Hydrox 30 Ml Oral.Susp PO Q6H PRN Heartburn/Nausea Hydroxyzine HCl 25 mg 03/11/21 09:44 03/24/21 20:49 Hydroxyzine Hcl 25 Mg Tablet PO 25 mg BEDTIME PRN Administration Anxiety Magnesium Hydroxide 30 ml 03/11/21 09:44 Milk Of Magnesia 30 Ml Oral.Susp PO DAILY PRN Constipation Mirtazapine 15 mg 03/22/21 21:00 03/25/21 19:58 Mirtazapine 15 Mg Tablet PO 15 mg BEDTIME DENISSE Administration Multivitamins 1 tab 03/13/21 12:00 03/26/21 09:41 B-Complex With Vitamin C Tablet PO 1 tab DAILY DENISSE Administration Olanzapine 2.5 mg 03/16/21 16:51 Olanzapine 2.5 Mg Tablet PO DAILY PRN anxiety/restlessness Olanzapine 5 mg 03/25/21 21:00 03/25/21 19:58 Olanzapine 5 Mg Tablet PO 5 mg BEDTIME DENISSE Administration Olanzapine 2.5 mg 03/26/21 09:00 03/26/21 09:41 Olanzapine 2.5 Mg Tablet PO 2.5 mg DAILY DENISSE Administration Ondansetron HCl 4 mg 03/12/21 08:39 Ondansetron Hcl 4 Mg/2 Ml Vial IVPUSH ONCE PRN Nausea and Vomiting Venlafaxine HCl 225 mg 03/12/21 09:00 03/26/21 09:42 Venlafaxine Hcl Er 75 Mg Cap.Er.24h PO 225 mg DAILY DENISSE Administration Allergies Allergies Allergy/AdvReac Type Severity Reaction Status Date / Time No Known Allergies Allergy Verified 11/20/20 11:36 [No Known Allergies*] Assessment & Plan Assessment & Plan (1) Major depressive disorder, recurrent severe without psychotic features: Status: Acute Code(s): F33.2 - Major depressive disorder, recurrent severe without psychotic features Assessment and Plan: PLAN 1. Continue zyprexa increase total dose to 7.5 mg continue ECT , Venlafaxine 2. Increase remeron if not effective 3. Aftercare planning.consider change in ect technique Greater than 50% of the session was spent on counseling and/or coordination of care Reason for contiued inpatient stay Substantial Risk for: harm to self and rapid decompensation
[2021-03-27 06:00] VITALS: BP 131/83; PULSE 76; RESP 104; TEMP 36.6; O2SAT 98
[2021-03-27] MEDS: OLANZapine 2.5 MG TABLET PO (08:42)
[2021-03-27] MEDS: Venlafaxine HCl ER 75 MG CAP.ER.24H 225 MG PO (08:43)
[2021-03-27 09:53] VITALS: BMI 20.6
[2021-03-27] MEDS: OLANZapine 5 MG TABLET PO (19:31)
[2021-03-27] MEDS: Mirtazapine 15 MG TABLET PO (19:31)
--- NOTE | 2021-03-27 20:17 | HO.PSYCHPN ---
Subjective Subjective Date of Service: 03/27/21 Reason For Visit: Depression w/SI Subjective Notes: Conditional Voluntary Guardianship: No Medical Problems Affecting Mental Status: No Interim History: Patient showing significant improvement in mood and thinking Mental Status Exam Mental Status Exam Narrative: patient casually dressed alert speech clear and goal directed full range of affect mood less depressed some anxiety denies current irrational beliefs in relation to her and family states she is processing irrational police over the past few months set over time lost no hallucinations improved insight oriented x3 Diagnostics Vital Signs (24Hr): Vital Signs - 24 hr 03/26/21 20:59 03/27/21 06:00 Temperature 98.5 F 97.9 F Pulse Rate 70 76 Respiratory Rate 17 104 H Blood Pressure 140/84 H 131/83 Pulse Oximetry 100 98 Body Mass Index 20.6 Imaging Radiology Impressions: ITS Impressions Head CT 03/11/21 14:00 IMPRESSION: No acute intracranial abnormality. Global cerebral volume loss and moderate chronic microangiopathy. Head CT 03/13/21 23:20 IMPRESSION: No acute intracranial findings. No fracture identified. Inferior right frontal scalp hematoma. Orbit CT 03/13/21 23:20 IMPRESSION: No acute intracranial findings. No fracture identified. Inferior right frontal scalp hematoma. Medications Medications Current Medications Generic Name Dose Route Start Last Admin Trade Name Freq PRN Reason Stop Dose Admin Acetaminophen 650 mg 03/11/21 09:44 Acetaminophen 325 Mg Tablet PO Q6H PRN Headache/Pain Mild Scale (1-3) Acetaminophen 650 mg 03/12/21 08:39 Acetaminophen 325 Mg Tablet PO ONCE PRN Pain, Mild (Pain Scale 1-3) Acetaminophen 650 mg 03/19/21 07:23 Acetaminophen 325 Mg Tablet PO ONCE PRN Pain, Mild (Pain Scale 1-3) Acetaminophen 650 mg 03/21/21 06:57 Acetaminophen 325 Mg Tablet PO ONCE PRN Pain, Mild (Pain Scale 1-3) Al Hydroxide/Mg Hydroxide 30 ml 03/11/21 09:44 Magnesium Hydrox/Alum Hydrox 30 Ml Oral.Susp PO Q6H PRN Heartburn/Nausea Hydroxyzine HCl 25 mg 03/11/21 09:44 03/24/21 20:49 Hydroxyzine Hcl 25 Mg Tablet PO 25 mg BEDTIME PRN Administration Anxiety Magnesium Hydroxide 30 ml 03/11/21 09:44 Milk Of Magnesia 30 Ml Oral.Susp PO DAILY PRN Constipation Mirtazapine 15 mg 03/22/21 21:00 03/27/21 19:31 Mirtazapine 15 Mg Tablet PO 15 mg BEDTIME DENISSE Administration Multivitamins 1 tab 03/13/21 12:00 03/27/21 08:43 B-Complex With Vitamin C Tablet PO 1 tab DAILY DENISSE Administration Olanzapine 2.5 mg 03/16/21 16:51 Olanzapine 2.5 Mg Tablet PO DAILY PRN anxiety/restlessness Olanzapine 5 mg 03/25/21 21:00 03/27/21 19:31 Olanzapine 5 Mg Tablet PO 5 mg BEDTIME DENISSE Administration Olanzapine 2.5 mg 03/26/21 09:00 03/27/21 08:42 Olanzapine 2.5 Mg Tablet PO 2.5 mg DAILY DENISSE Administration Ondansetron HCl 4 mg 03/12/21 08:39 Ondansetron Hcl 4 Mg/2 Ml Vial IVPUSH ONCE PRN Nausea and Vomiting Venlafaxine HCl 225 mg 03/12/21 09:00 03/27/21 08:43 Venlafaxine Hcl Er 75 Mg Cap.Er.24h PO 225 mg DAILY DENISSE Administration Allergies Allergies Allergy/AdvReac Type Severity Reaction Status Date / Time No Known Allergies Allergy Verified 11/20/20 11:36 [No Known Allergies*] Assessment & Plan Assessment & Plan (1) Major depressive disorder, recurrent severe without psychotic features: Status: Acute Code(s): F33.2 - Major depressive disorder, recurrent severe without psychotic features Assessment and Plan: assessment much improved mood and thinking. Appears to be coming out of psychotic depression Plan continue Remeron Effexor olanzapine continue low-dose unilateral ECT discharge planning eventual transition to maintenance treatment Greater than 50% of the session was spent on counseling and/or coordination of care Reason for contiued inpatient stay Substantial Risk for: inability to function and rapid decompensation
[2021-03-27 20:41] VITALS: BP 140/66; PULSE 80; RESP 17; TEMP 37.2; O2SAT 99
[2021-03-28] VITALS (9 sets, daily range): BP systolic 138–181; BP diastolic 78–94; PULSE 67–89; RESP 11–18; TEMP 36.1–36.8; O2SAT 94–98
--- NOTE | 2021-03-28 13:23 | HO.ANESPROP2 ---
[facility] Active Problems Active Problems: All Active Problems (Updated 03/18/21 @ 00:02 by Mandy Flores) Major depressive disorder, recurrent severe without psychotic features (Acute) OCD (obsessive compulsive disorder) (Acute) Abnormal finding on EKG (Acute) Past Medical History Medical History Depression Major depressive disorder, recurrent severe without psychotic features OCD (obsessive compulsive disorder) S/P ECT (electroconvulsive therapy) Functional capacity: independent ambulation Family History Family History Mother CHF (congestive heart failure) Family history of problems with anesthesia: No Surgical History Surgical History No history of previous surgery History of Problems with Anesthesia: No Social History Social History Household Members: Spouse Housing: Condominium Do you presently have visiting nurse or other home services: No Patient Tobacco Use Status: Never used Tobacco Use of substances other than those prescribed or required for medical reasons: No Currently Displaying Signs/Symptoms of Drug Intoxication Withdrawal: No Have you been hit, kicked, punched, or otherwise hurt by someone within the past year? If so, by whom?: No Do you feel safe in your current relationship?: Yes Is there a partner from a previous relationship who is making you feel unsafe now?: No Are you made to feel afraid or neglected: No Spiritual Healthcare Practices: Patient practices yoga. Are you DNR?: No Advance Directives: No Advance Directives Information Provided: No Do you have thoughts of harming others: None Do you have a plan to hurt others: No Plan Recently lost weight without trying: No How much weight loss: 2-13 pounds Nutrition Risks: No Nutritional Risk Patient : No : No Poor oral hygiene: No service: No Sexual orientation: Straight/Heterosexual Meds Allergies Allergy/AdvReac Type Severity Reaction Status Date / Time No Known Allergies Allergy Verified 11/20/20 11:36 [No Known Allergies*] Active Medications: Current Medications Generic Name Dose Route Start Last Admin Trade Name Freq PRN Reason Stop Dose Admin Acetaminophen 650 mg 03/11/21 09:44 Acetaminophen 325 Mg Tablet PO Q6H PRN Headache/Pain Mild Scale (1-3) Acetaminophen 650 mg 03/12/21 08:39 Acetaminophen 325 Mg Tablet PO ONCE PRN Pain, Mild (Pain Scale 1-3) Acetaminophen 650 mg 03/19/21 07:23 Acetaminophen 325 Mg Tablet PO ONCE PRN Pain, Mild (Pain Scale 1-3) Acetaminophen 650 mg 03/21/21 06:57 Acetaminophen 325 Mg Tablet PO ONCE PRN Pain, Mild (Pain Scale 1-3) Al Hydroxide/Mg Hydroxide 30 ml 03/11/21 09:44 Magnesium Hydrox/Alum Hydrox 30 Ml Oral.Susp PO Q6H PRN Heartburn/Nausea Hydroxyzine HCl 25 mg 03/11/21 09:44 03/24/21 20:49 Hydroxyzine Hcl 25 Mg Tablet PO 25 mg BEDTIME PRN Administration Anxiety Magnesium Hydroxide 30 ml 03/11/21 09:44 Milk Of Magnesia 30 Ml Oral.Susp PO DAILY PRN Constipation Mirtazapine 15 mg 03/22/21 21:00 03/27/21 19:31 Mirtazapine 15 Mg Tablet PO 15 mg BEDTIME DENISSE Administration Multivitamins 1 tab 03/13/21 12:00 03/27/21 08:43 B-Complex With Vitamin C Tablet PO 1 tab DAILY DENISSE Administration Olanzapine 2.5 mg 03/16/21 16:51 Olanzapine 2.5 Mg Tablet PO DAILY PRN anxiety/restlessness Olanzapine 5 mg 03/25/21 21:00 03/27/21 19:31 Olanzapine 5 Mg Tablet PO 5 mg BEDTIME DENISSE Administration Olanzapine 2.5 mg 03/26/21 09:00 03/27/21 08:42 Olanzapine 2.5 Mg Tablet PO 2.5 mg DAILY DENISSE Administration Ondansetron HCl 4 mg 03/12/21 08:39 Ondansetron Hcl 4 Mg/2 Ml Vial IVPUSH ONCE PRN Nausea and Vomiting Venlafaxine HCl 225 mg 03/12/21 09:00 03/27/21 08:43 Venlafaxine Hcl Er 75 Mg Cap.Er.24h PO 225 mg DAILY DENISSE Administration Exam Exam Date and Time: March 28, 2021 1323 Height,Weight and Vital Signs: Height 5 ft 4 in Weight 54.601 kg Last Vital Signs Temp 97 F 03/28/21 13:16 Pulse 70 03/28/21 13:16 Resp 16 03/28/21 13:16 BP 166/78 H 03/28/21 13:16 Pulse Ox 96 03/28/21 13:16 Pertinent Lab Results Pertinent Lab Results: Laboratory Tests 03/11/21 03/13/21 08:31 22:24 POC Glucose 89 COVID-19 ([facility]) Negative COVID-19 Clin Com See Note Airway Mallampati Class: II TM Dist: >3cm Neck ROM: Full Assessment and Plan Final Anesthetic Review Family History of Problems with Anesthesia: No History of Problems with Anesthesia: No
--- NOTE | 2021-03-28 13:30 | MHC.SHP ---
Pre-Procedural Eval Section A Date of Service: 03/28/21 The patient is an INPATIENT: Yes Changes since office visit: Yes Changes in Medication and Yes Patient answered all questions; No Cold of Flu in the past 2 weeks and No New Medical Problems The History & Physical has been completed within 30 days and I have reviewed it.: Yes Section B Chief Complaint: Depression w/SI Allergies: Allergies Allergy/AdvReac Type Severity Reaction Status Date / Time No Known Allergies Allergy Verified 11/20/20 11:36 [No Known Allergies*] Plan I have reviewed the history and physical and performed a pertinent physical examination on my patient. No changes have occurred unless specified.
[2021-03-28] MEDS: Venlafaxine HCl ER 75 MG CAP.ER.24H 225 MG PO (15:01)
[2021-03-28] MEDS: OLANZapine 2.5 MG TABLET PO (15:02)
--- NOTE | 2021-03-28 15:02 | MHC.CLN ---
F/U WEIGHT STABLE X 2 WEEKS. STAFF REPORTS THAT PATIENT IS EATING WELL.
[2021-03-28] MEDS: Mirtazapine 15 MG TABLET PO (20:06)
[2021-03-28] MEDS: OLANZapine 5 MG TABLET PO (20:06)
[2021-03-28] MEDS: hydrOXYzine HCL 25 MG TABLET PO (20:08)
--- NOTE | 2021-03-28 21:41 | HO.PSYCHPN ---
Subjective Subjective Date of Service: 03/28/21 Reason For Visit: Depression w/SI Subjective Notes: Conditional Voluntary Interim History: See ECT note patient improving Medication Compliance: Yes Side effects from medications: No Mental Status Exam Mental Status Exam Narrative: patient casually dressed alert speech clear and goal directed full range of affect mood less depressed some anxiety denies current irrational beliefs in relation to her and family states she is processing irrational police over the past few months set over time lost no hallucinations improved insight oriented x3 Diagnostics Vital Signs (24Hr): Vital Signs - 24 hr 03/28/21 09:46 03/28/21 13:16 03/28/21 13:50 Temperature 98.3 F 97 F 97.3 F Pulse Rate 67 70 70 Respiratory Rate 16 16 16 Blood Pressure 144/78 H 166/78 H 160/78 H Pulse Oximetry 96 94 03/28/21 13:55 03/28/21 14:00 03/28/21 14:05 Temperature Pulse Rate 67 73 72 Respiratory Rate 13 11 L 11 L Blood Pressure 172/89 H 168/94 H 176/89 H Pulse Oximetry 96 96 98 03/28/21 14:21 03/28/21 14:54 03/28/21 20:12 Temperature 97.3 F 98.2 F 97.8 F Pulse Rate 74 74 89 Respiratory Rate 16 18 16 Blood Pressure 167/85 H 181/83 H 138/78 Pulse Oximetry 97 98 96 Body Mass Index 20.6 Imaging Radiology Impressions: ITS Impressions Head CT 03/11/21 14:00 IMPRESSION: No acute intracranial abnormality. Global cerebral volume loss and moderate chronic microangiopathy. Head CT 03/13/21 23:20 IMPRESSION: No acute intracranial findings. No fracture identified. Inferior right frontal scalp hematoma. Orbit CT 03/13/21 23:20 IMPRESSION: No acute intracranial findings. No fracture identified. Inferior right frontal scalp hematoma. Medications Medications Current Medications Generic Name Dose Route Start Last Admin Trade Name Freq PRN Reason Stop Dose Admin Acetaminophen 650 mg 03/11/21 09:44 Acetaminophen 325 Mg Tablet PO Q6H PRN Headache/Pain Mild Scale (1-3) Acetaminophen 650 mg 03/12/21 08:39 Acetaminophen 325 Mg Tablet PO ONCE PRN Pain, Mild (Pain Scale 1-3) Acetaminophen 650 mg 03/19/21 07:23 Acetaminophen 325 Mg Tablet PO ONCE PRN Pain, Mild (Pain Scale 1-3) Acetaminophen 650 mg 03/21/21 06:57 Acetaminophen 325 Mg Tablet PO ONCE PRN Pain, Mild (Pain Scale 1-3) Al Hydroxide/Mg Hydroxide 30 ml 03/11/21 09:44 Magnesium Hydrox/Alum Hydrox 30 Ml Oral.Susp PO Q6H PRN Heartburn/Nausea Hydroxyzine HCl 25 mg 03/11/21 09:44 03/28/21 20:08 Hydroxyzine Hcl 25 Mg Tablet PO 25 mg BEDTIME PRN Administration Anxiety Magnesium Hydroxide 30 ml 03/11/21 09:44 Milk Of Magnesia 30 Ml Oral.Susp PO DAILY PRN Constipation Mirtazapine 15 mg 03/22/21 21:00 03/28/21 20:06 Mirtazapine 15 Mg Tablet PO 15 mg BEDTIME DENISSE Administration Multivitamins 1 tab 03/13/21 12:00 03/28/21 15:02 B-Complex With Vitamin C Tablet PO 1 tab DAILY DENISSE Administration Olanzapine 2.5 mg 03/16/21 16:51 Olanzapine 2.5 Mg Tablet PO DAILY PRN anxiety/restlessness Olanzapine 5 mg 03/25/21 21:00 03/28/21 20:06 Olanzapine 5 Mg Tablet PO 5 mg BEDTIME DENISSE Administration Olanzapine 2.5 mg 03/26/21 09:00 03/28/21 15:02 Olanzapine 2.5 Mg Tablet PO 2.5 mg DAILY DENISSE Administration Venlafaxine HCl 225 mg 03/12/21 09:00 03/28/21 15:01 Venlafaxine Hcl Er 75 Mg Cap.Er.24h PO 225 mg DAILY DENISSE Administration Allergies Allergies Allergy/AdvReac Type Severity Reaction Status Date / Time No Known Allergies Allergy Verified 11/20/20 11:36 [No Known Allergies*] Assessment & Plan Assessment & Plan (1) Major depressive disorder, recurrent severe without psychotic features: Status: Acute Code(s): F33.2 - Major depressive disorder, recurrent severe without psychotic features Assessment and Plan: assessment much improved mood and thinking. Appears to be coming out of psychotic depression Plan continue Remeron Effexor olanzapine continue low-dose unilateral ECT discharge planning eventual transition to maintenance treatment Greater than 50% of the session was spent on counseling and/or coordination of care Reason for contiued inpatient stay Substantial Risk for: inability to function and rapid decompensation
--- NOTE | 2021-03-28 21:54 | HO.ECTPROC ---
ECT Procedure Note Diagnosis/Treatment Date of Service: 03/28/21 Diagnosis: Major Depressive Disorder Previous ECT Date: 03/26/21 Current Treatment Number: 6 Treatment: Series Interval Clinical Notes: Patient is showing improvement ECT Settings Device: THYMATRON DGx Electrode Placement: Right Unilateral Program/Pulse Width: 0.25 Energy Percent: 15 Seizure Duration By EEG (in seconds): 62 Medications Administration General Anesthetic: Etomidate (12) Muscle Relaxant: Succinylcholine (80) Ancillary Medications Miscillaneous Medications: Propofol Airway Management Airway Management: Bag Mask Ventilation Treatment Recommendations No Changes Recommended: No change Notes: transient post ect htn
[2021-03-29] MEDS: Venlafaxine HCl ER 75 MG CAP.ER.24H 225 MG PO (08:53)
[2021-03-29] MEDS: OLANZapine 2.5 MG TABLET PO (08:53)
[2021-03-29 08:55] VITALS: BP 140/59; PULSE 83; RESP 17; O2SAT 97
--- NOTE | 2021-03-29 13:18 | HO.PSYCHPN ---
Subjective Subjective Date of Service: 03/29/21 Reason For Visit: Depression w/SI Interim History: Feeling down. Says she is feeling badabout something that happened years ago. She feels worthless and says she feels like I am using other people's resources here . We discussed how guilt and shame may be hard to completely erase and to think of incorporating them into one's life but not having them control one's life. Seems like patient may be suffering from delusional intensity of her guilt. Review of Systems Review of Systems Denies any recent fever chills or decrease in appetite respiratory denies any shortness of breath coverage pr denies chest pain cardiac denies chest pain gastrointestinal denies any dysphagia abdominal pain nausea vomiting or diarrhea genitourinary denies any dysuria frequency or hematuria musculoskeletal denies any joint pain or swelling neuropsych denies any weakness or seizures all other systems reviewed are negative Constitutional: Reports excessive sweating and Reports poor appetite Endocrine: Reports excessive sweating Mental Status Exam Mental Status Exam Narrative: patient casually dressed alert speech clear and goal directed full range of affect mood less depressed some anxiety. Resurgence of guilt. No SI. Worthless. Dr. Chambers would be better able to assess progress and intensity of depressive and guilty cognitions. no hallucinations improved insight oriented x3 Patient Appearance: Well Grooomed Patient Orientation: Person Level of Consciousness: Awake Patient Behavior: Appropriate Mood Description: Calm Affect Description: Constricted Patient Cognition Impaired: No Ability to Follow Directions: Good Speech Pattern: Clear Memory Description: Intact Diagnostics Vital Signs (24Hr): Vital Signs - 24 hr 03/28/21 13:50 03/28/21 13:55 03/28/21 14:00 Temperature 97.3 F Pulse Rate 70 67 73 Respiratory Rate 16 13 11 L Blood Pressure 160/78 H 172/89 H 168/94 H Pulse Oximetry 94 96 96 03/28/21 14:05 03/28/21 14:21 03/28/21 14:54 Temperature 97.3 F 98.2 F Pulse Rate 72 74 74 Respiratory Rate 11 L 16 18 Blood Pressure 176/89 H 167/85 H 181/83 H Pulse Oximetry 98 97 98 03/28/21 20:12 03/29/21 08:55 Temperature 97.8 F Pulse Rate 89 83 Respiratory Rate 16 17 Blood Pressure 138/78 140/59 H Pulse Oximetry 96 97 Body Mass Index 20.6 Imaging Radiology Impressions: ITS Impressions Head CT 03/11/21 14:00 IMPRESSION: No acute intracranial abnormality. Global cerebral volume loss and moderate chronic microangiopathy. Head CT 03/13/21 23:20 IMPRESSION: No acute intracranial findings. No fracture identified. Inferior right frontal scalp hematoma. Orbit CT 03/13/21 23:20 IMPRESSION: No acute intracranial findings. No fracture identified. Inferior right frontal scalp hematoma. Medications Medications Current Medications Generic Name Dose Route Start Last Admin Trade Name Freq PRN Reason Stop Dose Admin Acetaminophen 650 mg 03/11/21 09:44 Acetaminophen 325 Mg Tablet PO Q6H PRN Headache/Pain Mild Scale (1-3) Acetaminophen 650 mg 03/12/21 08:39 Acetaminophen 325 Mg Tablet PO ONCE PRN Pain, Mild (Pain Scale 1-3) Acetaminophen 650 mg 03/19/21 07:23 Acetaminophen 325 Mg Tablet PO ONCE PRN Pain, Mild (Pain Scale 1-3) Acetaminophen 650 mg 03/21/21 06:57 Acetaminophen 325 Mg Tablet PO ONCE PRN Pain, Mild (Pain Scale 1-3) Al Hydroxide/Mg Hydroxide 30 ml 03/11/21 09:44 Magnesium Hydrox/Alum Hydrox 30 Ml Oral.Susp PO Q6H PRN Heartburn/Nausea Hydroxyzine HCl 25 mg 03/11/21 09:44 03/28/21 20:08 Hydroxyzine Hcl 25 Mg Tablet PO 25 mg BEDTIME PRN Administration Anxiety Magnesium Hydroxide 30 ml 03/11/21 09:44 Milk Of Magnesia 30 Ml Oral.Susp PO DAILY PRN Constipation Mirtazapine 15 mg 03/22/21 21:00 03/28/21 20:06 Mirtazapine 15 Mg Tablet PO 15 mg BEDTIME DENISSE Administration Multivitamins 1 tab 03/13/21 12:00 03/29/21 08:53 B-Complex With Vitamin C Tablet PO 1 tab DAILY DENISSE Administration Olanzapine 2.5 mg 03/16/21 16:51 Olanzapine 2.5 Mg Tablet PO DAILY PRN anxiety/restlessness Olanzapine 5 mg 03/25/21 21:00 03/28/21 20:06 Olanzapine 5 Mg Tablet PO 5 mg BEDTIME DENISSE Administration Olanzapine 2.5 mg 03/26/21 09:00 03/29/21 08:53 Olanzapine 2.5 Mg Tablet PO 2.5 mg DAILY DENISSE Administration Venlafaxine HCl 225 mg 03/12/21 09:00 03/29/21 08:53 Venlafaxine Hcl Er 75 Mg Cap.Er.24h PO 225 mg DAILY DENISSE Administration Allergies Allergies Allergy/AdvReac Type Severity Reaction Status Date / Time No Known Allergies Allergy Verified 11/20/20 11:36 [No Known Allergies*] Assessment & Plan Assessment & Plan (1) Major depressive disorder, recurrent severe without psychotic features: Status: Acute Code(s): F33.2 - Major depressive disorder, recurrent severe without psychotic features Assessment and Plan: assessment much improved mood and thinking. Appears to be coming out of psychotic depression Plan continue Remeron Effexor olanzapine continue low-dose unilateral ECT discharge planning eventual transition to maintenance treatment Greater than 50% of the session was spent on counseling and/or coordination of care Reason for contiued inpatient stay Substantial Risk for: inability to function and rapid decompensation
--- NOTE | 2021-03-29 15:12 | HO.POSTANES ---
Post Anesthesia Evaluation Post Anesthesia Evaluation Vital Signs: Vital Signs Pulse Resp BP Pulse Ox 03/29/21 08:55 83 17 140/59 H 97 Anesthesia: General Mental Status: Awake Pain Control: Satisfactory Nausea/Vomiting: None Hydration: Adequate Anesthesia-Related Issues: No Anes. Related Issues
[2021-03-29 19:37] VITALS: BP 139/65; PULSE 89; RESP 18; TEMP 36.6; O2SAT 99
[2021-03-29] MEDS: OLANZapine 5 MG TABLET PO (21:54)
[2021-03-29] MEDS: Mirtazapine 15 MG TABLET PO (21:54)
[2021-03-30] MEDS: Venlafaxine HCl ER 75 MG CAP.ER.24H 225 MG PO (08:34)
[2021-03-30] MEDS: OLANZapine 2.5 MG TABLET PO (08:35)
--- NOTE | 2021-03-30 17:17 | HO.PSYCHPN ---
Subjective Subjective Date of Service: 03/30/21 Reason For Visit: Depression w/SI Interim History: Feeling better today. She is grateful to this program. She worries who is going to pay for it? Does Medicare? Reassured patient she paid into Medicare throughout her life and now she shouldn't be worrying about the payment to which patient laughed and was reassured. No SI Review of Systems Review of Systems Denies any recent fever chills or decrease in appetite respiratory denies any shortness of breath coverage pr denies chest pain cardiac denies chest pain gastrointestinal denies any dysphagia abdominal pain nausea vomiting or diarrhea genitourinary denies any dysuria frequency or hematuria musculoskeletal denies any joint pain or swelling neuropsych denies any weakness or seizures all other systems reviewed are negative Constitutional: Reports excessive sweating and Reports poor appetite Endocrine: Reports excessive sweating Mental Status Exam Mental Status Exam Narrative: patient casually dressed alert speech clear and goal directed full range of affect mood less depressed some anxiety. Resurgence of guilt. No SI. Worthless. Dr. Chambers would be better able to assess progress and intensity of depressive and guilty cognitions. no hallucinations improved insight oriented x3 Patient Appearance: Well Grooomed Patient Orientation: Person Level of Consciousness: Awake Patient Behavior: Appropriate Mood Description: Calm Affect Description: Constricted Patient Cognition Impaired: No Ability to Follow Directions: Good Speech Pattern: Clear Memory Description: Intact Diagnostics Vital Signs (24Hr): Vital Signs - 24 hr 03/29/21 19:37 Temperature 97.9 F Pulse Rate 89 Respiratory Rate 18 Blood Pressure 139/65 Pulse Oximetry 99 Body Mass Index 20.6 Imaging Radiology Impressions: ITS Impressions Head CT 03/11/21 14:00 IMPRESSION: No acute intracranial abnormality. Global cerebral volume loss and moderate chronic microangiopathy. Head CT 03/13/21 23:20 IMPRESSION: No acute intracranial findings. No fracture identified. Inferior right frontal scalp hematoma. Orbit CT 03/13/21 23:20 IMPRESSION: No acute intracranial findings. No fracture identified. Inferior right frontal scalp hematoma. Medications Medications Current Medications Generic Name Dose Route Start Last Admin Trade Name Freq PRN Reason Stop Dose Admin Acetaminophen 650 mg 03/11/21 09:44 Acetaminophen 325 Mg Tablet PO Q6H PRN Headache/Pain Mild Scale (1-3) Acetaminophen 650 mg 03/12/21 08:39 Acetaminophen 325 Mg Tablet PO ONCE PRN Pain, Mild (Pain Scale 1-3) Acetaminophen 650 mg 03/19/21 07:23 Acetaminophen 325 Mg Tablet PO ONCE PRN Pain, Mild (Pain Scale 1-3) Acetaminophen 650 mg 03/21/21 06:57 Acetaminophen 325 Mg Tablet PO ONCE PRN Pain, Mild (Pain Scale 1-3) Al Hydroxide/Mg Hydroxide 30 ml 03/11/21 09:44 Magnesium Hydrox/Alum Hydrox 30 Ml Oral.Susp PO Q6H PRN Heartburn/Nausea Hydroxyzine HCl 25 mg 03/11/21 09:44 03/28/21 20:08 Hydroxyzine Hcl 25 Mg Tablet PO 25 mg BEDTIME PRN Administration Anxiety Magnesium Hydroxide 30 ml 03/11/21 09:44 Milk Of Magnesia 30 Ml Oral.Susp PO DAILY PRN Constipation Mirtazapine 15 mg 03/22/21 21:00 03/29/21 21:54 Mirtazapine 15 Mg Tablet PO 15 mg BEDTIME DENISSE Administration Multivitamins 1 tab 03/13/21 12:00 03/30/21 08:35 B-Complex With Vitamin C Tablet PO 1 tab DAILY DENISSE Administration Olanzapine 2.5 mg 03/16/21 16:51 Olanzapine 2.5 Mg Tablet PO DAILY PRN anxiety/restlessness Olanzapine 5 mg 03/25/21 21:00 03/29/21 21:54 Olanzapine 5 Mg Tablet PO 5 mg BEDTIME DENISSE Administration Olanzapine 2.5 mg 03/26/21 09:00 03/30/21 08:35 Olanzapine 2.5 Mg Tablet PO 2.5 mg DAILY DENISSE Administration Venlafaxine HCl 225 mg 03/12/21 09:00 03/30/21 08:34 Venlafaxine Hcl Er 75 Mg Cap.Er.24h PO 225 mg DAILY DENISSE Administration Allergies Allergies Allergy/AdvReac Type Severity Reaction Status Date / Time No Known Allergies Allergy Verified 11/20/20 11:36 [No Known Allergies*] Assessment & Plan Assessment & Plan (1) Major depressive disorder, recurrent severe without psychotic features: Status: Acute Code(s): F33.2 - Major depressive disorder, recurrent severe without psychotic features Assessment and Plan: assessment much improved mood and thinking. Appears to be coming out of psychotic depression Plan continue Remeron Effexor olanzapine continue low-dose unilateral ECT discharge planning eventual transition to maintenance treatment Greater than 50% of the session was spent on counseling and/or coordination of care Reason for contiued inpatient stay Substantial Risk for: inability to function and rapid decompensation
[2021-03-30 18:31] VITALS: BP 143/65; PULSE 87; RESP 16; TEMP 36.7; O2SAT 97
[2021-03-30] MEDS: Mirtazapine 15 MG TABLET PO (20:26)
[2021-03-30] MEDS: OLANZapine 5 MG TABLET PO (20:26)
[2021-03-31] VITALS (11 sets, daily range): BP systolic 144–169; BP diastolic 70–85; PULSE 65–75; RESP 15–18; TEMP 36.2–36.7; O2SAT 9–98; BMI 20.5
--- NOTE | 2021-03-31 07:02 | MHC.SHP ---
Pre-Procedural Eval Section A Date of Service: 03/31/21 The patient is an INPATIENT: Yes Changes since office visit: No Cold of Flu in the past 2 weeks, No New Medical Problems, No Changes in Medication and No Patient answered all questions The History & Physical has been completed within 30 days and I have reviewed it.: Yes Section B Chief Complaint: Depression w/SI Allergies: Allergies Allergy/AdvReac Type Severity Reaction Status Date / Time No Known Allergies Allergy Verified 11/20/20 11:36 [No Known Allergies*] Plan I have reviewed the history and physical and performed a pertinent physical examination on my patient. No changes have occurred unless specified.
--- NOTE | 2021-03-31 07:03 | HO.ECTPROC ---
ECT Procedure Note Diagnosis/Treatment Date of Service: 03/31/21 Diagnosis: Major Depressive Disorder Previous ECT Date: 03/28/21 Current Treatment Number: 7 Treatment: Series Interval Clinical Notes: The patient reported improvement of her mood, no side effects with the current treatment. ECT Settings Device: THYMATRON DGx Electrode Placement: Right Unilateral Program/Pulse Width: 0.25 Energy Percent: 15 Seizure Duration By EEG (in seconds): 48 (EMG didn't registered but seizure activity was seen until 48s) By Motor Observation (in seconds): 24 Medications Administration General Anesthetic: Etomidate (12) Muscle Relaxant: Succinylcholine (80) Ancillary Medications Analgesics: Torodol - Pre ECT Anti-emetics: Zofran - Pre ECT Miscillaneous Medications: Propofol (30) Airway Management Airway Management: Bag Mask Ventilation Treatment Recommendations No Changes Recommended: No change Pt Tolerated Procedure w/o Issue: Yes
--- NOTE | 2021-03-31 07:30 | HO.ANESPROP2 ---
[facility] Active Problems Active Problems: All Active Problems (Updated 03/18/21 @ 00:02 by Mandy Flores) Major depressive disorder, recurrent severe without psychotic features (Acute) OCD (obsessive compulsive disorder) (Acute) Abnormal finding on EKG (Acute) Past Medical History Medical History Depression Major depressive disorder, recurrent severe without psychotic features OCD (obsessive compulsive disorder) S/P ECT (electroconvulsive therapy) Functional capacity: independent ambulation Patient : No Family History Family History Mother CHF (congestive heart failure) Family history of problems with anesthesia: No Surgical History Surgical History No history of previous surgery History of Problems with Anesthesia: No Social History Social History Household Members: Spouse Housing: Condominium Do you presently have visiting nurse or other home services: No Patient Tobacco Use Status: Never used Tobacco Use of substances other than those prescribed or required for medical reasons: No Currently Displaying Signs/Symptoms of Drug Intoxication Withdrawal: No Have you been hit, kicked, punched, or otherwise hurt by someone within the past year? If so, by whom?: No Do you feel safe in your current relationship?: Yes Is there a partner from a previous relationship who is making you feel unsafe now?: No Are you made to feel afraid or neglected: No Spiritual Healthcare Practices: Patient practices yoga. Are you DNR?: No Advance Directives: No Advance Directives Information Provided: No Do you have thoughts of harming others: None Do you have a plan to hurt others: No Plan Recently lost weight without trying: Yes How much weight loss: 2-13 pounds Eating poorly because of decreased appetite: No Nutrition screen score: 3 Nutrition Risks: No Nutritional Risk Patient : No : No Poor oral hygiene: No service: No Sexual orientation: Straight/Heterosexual Meds Allergies Allergy/AdvReac Type Severity Reaction Status Date / Time No Known Allergies Allergy Verified 11/20/20 11:36 [No Known Allergies*] Active Medications: Current Medications Generic Name Dose Route Start Last Admin Trade Name Freq PRN Reason Stop Dose Admin Acetaminophen 650 mg 03/11/21 09:44 Acetaminophen 325 Mg Tablet PO Q6H PRN Headache/Pain Mild Scale (1-3) Acetaminophen 650 mg 03/12/21 08:39 Acetaminophen 325 Mg Tablet PO ONCE PRN Pain, Mild (Pain Scale 1-3) Acetaminophen 650 mg 03/19/21 07:23 Acetaminophen 325 Mg Tablet PO ONCE PRN Pain, Mild (Pain Scale 1-3) Acetaminophen 650 mg 03/21/21 06:57 Acetaminophen 325 Mg Tablet PO ONCE PRN Pain, Mild (Pain Scale 1-3) Al Hydroxide/Mg Hydroxide 30 ml 03/11/21 09:44 Magnesium Hydrox/Alum Hydrox 30 Ml Oral.Susp PO Q6H PRN Heartburn/Nausea Hydroxyzine HCl 25 mg 03/11/21 09:44 03/28/21 20:08 Hydroxyzine Hcl 25 Mg Tablet PO 25 mg BEDTIME PRN Administration Anxiety Magnesium Hydroxide 30 ml 03/11/21 09:44 Milk Of Magnesia 30 Ml Oral.Susp PO DAILY PRN Constipation Mirtazapine 15 mg 03/22/21 21:00 03/30/21 20:26 Mirtazapine 15 Mg Tablet PO 15 mg BEDTIME DENISSE Administration Multivitamins 1 tab 03/13/21 12:00 03/30/21 08:35 B-Complex With Vitamin C Tablet PO 1 tab DAILY DENISSE Administration Olanzapine 2.5 mg 03/16/21 16:51 Olanzapine 2.5 Mg Tablet PO DAILY PRN anxiety/restlessness Olanzapine 5 mg 03/25/21 21:00 03/30/21 20:26 Olanzapine 5 Mg Tablet PO 5 mg BEDTIME DENISSE Administration Olanzapine 2.5 mg 03/26/21 09:00 03/30/21 08:35 Olanzapine 2.5 Mg Tablet PO 2.5 mg DAILY DENISSE Administration Venlafaxine HCl 225 mg 03/12/21 09:00 03/30/21 08:34 Venlafaxine Hcl Er 75 Mg Cap.Er.24h PO 225 mg DAILY DENISSE Administration Exam Exam Date and Time: March 31, 2021 0730 Height,Weight and Vital Signs: Height 5 ft 4 in Weight 54.431 kg Last Vital Signs Temp 97.1 F 03/31/21 07:27 Pulse 68 03/31/21 07:27 Resp 17 03/31/21 07:27 BP 154/85 H 09/13/21 07:27 Pulse Ox 96 03/31/21 07:27 Pertinent Lab Results Pertinent Lab Results: Laboratory Tests 03/11/21 03/13/21 08:31 22:24 POC Glucose 89 COVID-19 ([facility]ANG) Negative COVID-19 Clin Com See Note Airway Mallampati Class: II TM Dist: >3cm Neck ROM: Full Heart: RRR Lungs: CTA Assessment and Plan Final Anesthetic Review Family History of Problems with Anesthesia: No History of Problems with Anesthesia: No
[2021-03-31] MEDS: OLANZapine 2.5 MG TABLET PO (09:25)
[2021-03-31] MEDS: Venlafaxine HCl ER 75 MG CAP.ER.24H 225 MG PO (09:25)
[2021-03-31] MEDS: OLANZapine 5 MG TABLET PO (20:18)
[2021-03-31] MEDS: Mirtazapine 15 MG TABLET PO (20:18)
--- NOTE | 2021-03-31 20:27 | HO.PSYCHPN ---
Subjective Subjective Date of Service: 03/31/21 Reason For Visit: Depression w/SI Subjective Notes: Conditional Voluntary Guardianship: No Interim History: Patient seen with markedly improved with ECT seems stable for discharge tomorrow see ECT note from today for full information Medication Compliance: Yes Side effects from medications: No Attending Groups: Yes Review of Systems Acute medical concerns: No Medical Review of Systems: unchanged Mental Status Exam Mental Status Exam Narrative: Patient with full affect future oriented marked reduction of guilty ruminations oriented x3 no self-harming thoughts Diagnostics Vital Signs (24Hr): Vital Signs - 24 hr 03/31/21 05:40 03/31/21 06:34 03/31/21 07:27 Temperature 98.1 F 97.2 F 97.1 F Pulse Rate 75 75 68 Respiratory Rate 18 16 17 Blood Pressure 169/79 H 144/70 H 154/85 H Pulse Oximetry 98 97 96 03/31/21 07:32 03/31/21 07:37 03/31/21 07:42 Temperature Pulse Rate 65 71 71 Respiratory Rate 15 16 17 Blood Pressure 150/73 H 151/77 H 154/83 H Pulse Oximetry 97 98 98 03/31/21 07:57 03/31/21 08:18 03/31/21 08:33 Temperature 97.1 F 97.1 F 97.5 F Pulse Rate 70 72 73 Respiratory Rate 16 17 16 Blood Pressure 154/83 H 151/74 H 155/74 H Pulse Oximetry 97 97 9 L 03/31/21 08:35 03/31/21 08:40 Temperature 97.5 F 97.5 F Pulse Rate 73 73 Respiratory Rate Blood Pressure 155/74 H 155/74 H Pulse Oximetry 97 97 Body Mass Index 20.5 Imaging Radiology Impressions: ITS Impressions Head CT 03/11/21 14:00 IMPRESSION: No acute intracranial abnormality. Global cerebral volume loss and moderate chronic microangiopathy. Head CT 03/13/21 23:20 IMPRESSION: No acute intracranial findings. No fracture identified. Inferior right frontal scalp hematoma. Orbit CT 03/13/21 23:20 IMPRESSION: No acute intracranial findings. No fracture identified. Inferior right frontal scalp hematoma. Medications Medications Current Medications Generic Name Dose Route Start Last Admin Trade Name Freq PRN Reason Stop Dose Admin Acetaminophen 650 mg 03/11/21 09:44 Acetaminophen 325 Mg Tablet PO Q6H PRN Headache/Pain Mild Scale (1-3) Acetaminophen 650 mg 03/12/21 08:39 Acetaminophen 325 Mg Tablet PO ONCE PRN Pain, Mild (Pain Scale 1-3) Acetaminophen 650 mg 03/19/21 07:23 Acetaminophen 325 Mg Tablet PO ONCE PRN Pain, Mild (Pain Scale 1-3) Acetaminophen 650 mg 03/21/21 06:57 Acetaminophen 325 Mg Tablet PO ONCE PRN Pain, Mild (Pain Scale 1-3) Al Hydroxide/Mg Hydroxide 30 ml 03/11/21 09:44 Magnesium Hydrox/Alum Hydrox 30 Ml Oral.Susp PO Q6H PRN Heartburn/Nausea Hydroxyzine HCl 25 mg 03/11/21 09:44 03/28/21 20:08 Hydroxyzine Hcl 25 Mg Tablet PO 25 mg BEDTIME PRN Administration Anxiety Magnesium Hydroxide 30 ml 03/11/21 09:44 Milk Of Magnesia 30 Ml Oral.Susp PO DAILY PRN Constipation Mirtazapine 15 mg 03/22/21 21:00 03/31/21 20:18 Mirtazapine 15 Mg Tablet PO 15 mg BEDTIME DENISSE Administration Multivitamins 1 tab 03/13/21 12:00 03/31/21 09:25 B-Complex With Vitamin C Tablet PO 1 tab DAILY DENISSE Administration Olanzapine 2.5 mg 03/16/21 16:51 Olanzapine 2.5 Mg Tablet PO DAILY PRN anxiety/restlessness Olanzapine 5 mg 03/25/21 21:00 03/31/21 20:18 Olanzapine 5 Mg Tablet PO 5 mg BEDTIME DENISSE Administration Olanzapine 2.5 mg 03/26/21 09:00 03/31/21 09:25 Olanzapine 2.5 Mg Tablet PO 2.5 mg DAILY DENISSE Administration Venlafaxine HCl 225 mg 03/12/21 09:00 03/31/21 09:25 Venlafaxine Hcl Er 75 Mg Cap.Er.24h PO 225 mg DAILY DENISSE Administration Allergies Allergies Allergy/AdvReac Type Severity Reaction Status Date / Time No Known Allergies Allergy Verified 11/20/20 11:36 [No Known Allergies*] Assessment & Plan Assessment & Plan (1) Major depressive disorder, recurrent severe without psychotic features: Status: Acute Code(s): F33.2 - Major depressive disorder, recurrent severe without psychotic features Assessment and Plan: assessment much improved mood and thinking. Appears to be coming out of psychotic depression Plan continue Remeron Effexor olanzapine continue low-dose unilateral ECT discharge planning eventual transition to maintenance treatment discharge tomorrow Greater than 50% of the session was spent on counseling and/or coordination of care Reason for contiued inpatient stay Substantial Risk for: inability to function and rapid decompensation
[2021-04-01] MEDS: OLANZapine 2.5 MG TABLET PO (07:53)
[2021-04-01] MEDS: Venlafaxine HCl ER 75 MG CAP.ER.24H 225 MG PO (07:53)
--- NOTE | 2021-04-01 21:48 | P.DS_ITS ---
DS: Providers Provider Date of Service: 04/01/21 Date of admission: 03/11/21 09:44 Date of discharge: 04/01/21 Primary care physician: Unknown Physician Admitting clinician: Kyler Chambers Attending physician on discharge: Kyler Chambers DS: Diagnosis Discharge Diagnosis (1) Major depressive disorder, recurrent severe without psychotic features: Status: Acute (2) OCD (obsessive compulsive disorder): Status: Acute (3) Abnormal finding on EKG: Status: Acute DS: Medications Discharge Medications Home Medications: Previous Rx's Medication Instructions Recorded B-complex with vitamin C 1 tab PO DAILY 30 Days #30 tab 04/01/21 hydroxyzine HCl 25 mg tablet 25 mg PO BEDTIME PRN 15 Days #15 04/01/21 tab lorazepam 0.5 mg tablet 0.5 mg PO BID PRN #20 tab 04/01/21 mirtazapine 15 mg disintegrating 15 mg PO BEDTIME 30 Days #30 tab 04/01/21 tablet olanzapine 2.5 mg tablet 2.5 mg PO DAILY 30 Days #30 tab 04/01/21 olanzapine 7.5 mg tablet 7.5 mg PO BEDTIME 30 Days #30 tab 04/01/21 venlafaxine 225 mg tablet,extended 225 mg PO DAILY 30 Days #30 tab 04/01/21 release 24 hr Mental Status Exam Mental Status Exam Narrative: The patient was alert and oriented she was future oriented her thinking was clear coherent and generally goal directed. She remains somewhat blunted but significantly less depressed denied any active thoughts that she deserved to be punished or self-harming thoughts. She was somewhat guarded at times but had some thoughts at times that perhaps she had done bad things in the past and might have to in someway pay for this but was much better at putting this in perspective. She felt that ECT had been quite helpful and was agreeable to continuation on an outpatient basis. Data Imaging Diagnostic Imaging Impressions Head CT 03/11/21 14:00 IMPRESSION: No acute intracranial abnormality. Global cerebral volume loss and moderate chronic microangiopathy. Head CT 03/13/21 23:20 IMPRESSION: No acute intracranial findings. No fracture identified. Inferior right frontal scalp hematoma. Orbit CT 03/13/21 23:20 IMPRESSION: No acute intracranial findings. No fracture identified. Inferior right frontal scalp hematoma. DS: Summary Hospital Course Hospital Course: [facility] [place] [address] Psychiatry Admission Note (In)Signed Patient: Maribell Zayas HMR#: [id number]: 2Acct:[id number]/Sex: 80 / FLoc:[id number]: Kyler Chambers MD cc: ~ HPI Chief Complaint: Depression w/SI Sources of Information: patient interviewed and chart reviewed Additional Sources of Information: [employer] SAL[employer]OCIATE HPI Subjective Notes: [place] Warning and Conditional Voluntary Guardianship: No Medical Problems Affecting Mental Status: No Narrative: THE PATIENT IS A 80-YEAR-OLD FEMALE REFERRED BY THIS YOUTH PROBATION OFFICER FOR INPATIENT TREATMENT AFTER BEING SEEN OUTPATIENT WITH HER ON 03/10/2021. THE PATIENT IS KNOWN TO US FROM PREVIOUS ADMISSIONS SHE SHE HAS HAD COURSES OF ECT IN THE PAST AND HAD A COURSE OF ECT HERE IN 2019. SHE SUFFERS FROM RECURRENT DEPRESSION AT TIMES WITH PSYCHOTIC FEATURES AND OCD. THE PATIENT HAS BEEN HAVING WORSENING DEPRESSION ANXIETY RUMINATIONS DELUSIONAL GUILT REGARDING PAST BEHAVIOR AND FEELING THAT SHE IS A BAD PERSON AND THAT HER CHILDREN WILL NO LONGER WANT TO BE WITH HER. SHE HAS ALSO BEEN HAVING THOUGHTS THAT SHE WAS GOING TO KILL HERSELF AND CONCERN ABOUT ABANDONING HER HAS STOPPED HER TO THIS POINT. SHE HAS HAD THOUGHTS TO OVERDOSE. THE PATIENT DID FAIL A COURSE OF TMS THAT ENDED A COUPLE OF WEEKS AGO. THE PATIENT HAS BEEN ON SEROQUEL TO 300 MG TODAY SHE IS TREATED AT 0 SHE IS ALSO ON EFFEXOR 300 MG DAILY. PATIENT DID DO WELL WITH UNILATERAL ECT PREVIOUSLY Past Psychiatric History: History of psychiatric hospitalizations history of ECT including maintenance ECT in the past in [place] PATIENT HAS FAILED TRIALS OF FLUOXETINE SERTRALINE AMITRIPTYLINE [facility]LLBUTRIN Medical Evaluation Reviewed: Hospitalist Nicanor Pending [facility] Medical History (Updated 12/04/20 @ 00:02 by Background Dalc) Depression Major depressive disorder, recurrent severe without psychotic features OCD (obsessive compulsive disorder) S/P ECT (electroconvulsive therapy) Narrative: WEIGHT LOSS DIAPHORESIS QUESTIONABLE HAD RECENT HISTORY OF HYPERTENSION NO KNOWN DRUG ALLERGIES HISTORY OF ABNORMAL EKG QUESTION OF ANTERIOR SEPTAL IA ECHO IN NOVEMBER WAS WITHIN NORMAL LIMITS AND CARDIOLOGY FELT PATIENT IS STABLE FOR ECT Surgical History No history of previous surgery Family History: GF DEPRESSION SUICIDE Social History: Patient is retired lives with her and [place]. 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 Substance History: NONE Trauma History: none Diagnostics Vital Signs (24Hr):Vital Signs - 24 hr 03/11/21 10:34 Temperature 98.4 F Pulse Rate 74 Respiratory Rate 18 Blood Pressure 133/64 Pulse Oximetry 100 Labs Labs:Laboratory Results - last 48 hr 03/11/21 08:31 COVID-19 ([facility]) Negative COVID-19 Clin Com See Note Meds/Allergies Meds Home Medications Acetaminophen (Acetaminophen 325 Mg Tablet) 650 mg PO Q6H PRN PRN Reason: Headache/Pain Mild Scale (1-3) Al Hydroxide/Mg Hydroxide (Magnesium Hydrox/Alum Hydrox 30 Ml Oral.Susp) 30 ml PO Q6H PRN PRN Reason: Heartburn/Nausea Hydroxyzine HCl (Hydroxyzine Hcl 25 Mg Tablet) 25 mg PO BEDTIME PRN PRN Reason: Anxiety Magnesium Hydroxide (Milk Of Magnesia 30 Ml Oral.Susp) 30 ml PO DAILY PRN PRN Reason: Constipation Trazodone HCl (Trazodone Hcl 50 Mg Tablet) 50 mg PO BEDTIME PRN PRN Reason: Insomnia Allergies Allergies Allergy/AdvReac Type Severity Reaction Status Date / Time No Known Allergies Allergy Verified 11/20/20 11:36 [No Known Allergies*] Mental Status Exam Mental Status Exam Patient Appearance: Perspiring Patient Orientation: Person, Place, Time and Situation Level of Consciousness: Awake Patient Behavior: Appropriate and Anxious Mood Description: Depressed, Anxious and Apprehensive Affect Description: Anxious, Sad, Nervous and Apprehensive Patient Cognition Impaired: No Ability to Follow Directions: Good Speech Pattern: Clear Memory Description: Intact Hallucinations: None Delusions: Present (GUILTY RUMINATIONS OF DELUSIONAL PROPORTIONS) Thought Process: Rumination Thought Content: positive for Preoccupation and positive for Suicidal Ideation Depressive Symptoms: Increased Anxiety, Increased Irritability, Significant Weight Loss, Feelings of Worthlessness, Hopelessness, Feelings of Guilt, Increased Fatigue, Thoughts of /Suicide and Difficulty Concentrating Judgement: Fair Judgement and Insight: GUILTY RUMINATIONS PATIENT DOES UNDERSTAND SHE SUFFERS FROM CLINICAL DEPRESSION AND IS ACCEPTING TREATMENT Assessment & Plan Assessment & Plan (1) Major depressive disorder, recurrent severe without psychotic features: Status: Acute Code(s): F33.2 - Major depressive disorder, recurrent severe without psychotic features (2) OCD (obsessive compulsive disorder): Status: Acute Qualifiers: Obsessive-compulsive disorder type: unspecified Qualified Code(s): F42.9 - Obsessive-compulsive disorder, unspecified Code(s): F42.9 - Obsessive-compulsive disorder, unspecified Assessment and Plan: PATIENT SUFFERS FROM RECURRENT DEPRESSION SEVERE WITH WORSENING THOUGHTS OF SELF-HARM AND GUILTY RUMINATIONS HAS FAILED OUTPATIENT TREATMENT IN TMS PATIENT AND GIVE INFORMED CONSENT TO ADMISSION RISKS BENEFITS ALTERNATIVES REVIEWED PATIENT BEING ADMITTED FOR COURSE OF ECT. RECENT ABNORMAL EKG WITH NORMAL ECHO CARTILAGE CARDIOLOGY FELT PATIENT IS STABLE FOR ECT HOSPITALIST CONSULT SEE LABS AND EKG FROM DECEMBER 08 ECT ORDERED FOR 03/12/2021 Patient educated on: diagnosis, ECT and medical condition Guardian/Caregiver educated on: diagnosis and ECT Informed Consent: understands Reason for continued inpatient stay Substantial Risk for: harm to self and rapid decompensation Hospital course [facility] voluntary. The patient was obsessional E ruminating in a psychotic manner with guilty ruminations regarding a past marital discretion in the 1980s and feeling like she had been a bad parent and her children were conspiring to somehow have her leave her. She was somewhat defended but at times felt that she was somehow a bad person her family would abandon her and had irrational thoughts extending to having a [place] heritage. There were periods of more paranoia that she was guarded and defended and against. She was transitioned from Seroquel to olanzapine because of lack of efficacy on Seroquel and at higher doses she became hypotensive did have a fall but without serious injury The patient has a long history of ECT treatment. Her [place] was a 29. She generally had a constricted affect and previously had been having obsessional thoughts that she might kill herself and that is this seemed to be more generally of an obsessional fear than a plan or intent although at times the patient did become quite despondent and she was unsure of her safety if not in patient. Effexor was lowered from 300 mg to 125 mg mirtazapine was added at bedtime for help with anxiety depressive rumination and insomnia olanzapine was gradually increased at 2.5 mg. The patient was seen by the hospitalist service noted no acute findings con centrate indicating ECT in although the patient had a superficially abnormal EKG indicating possible past IA recent prior cardiac consultation and echo did not reveal any abnormalities indicating any history of IA or ASHD. The patient had a series of 7 unilateral ECTs and patient did show a significant change in mood and marked decrease in delusional belief system. Patient was future oriented had a much [place] range of affect at the time of discharge. Was not tolerating the combination of olanzapine Effexor and mirtazapine. The patient had broken through the combination of Effexor and Seroquel on at least 3 occasions over the past 2-3 years. There is a clear history of delusional depression that responded over many years to ECT. Patient had some residual irrational thoughts at times but this seemed to be much less intense about being not a good person and that her family wanted her away from her . Patient was seen with her prior to discharge in plan was to continue outpatient ECT she had failed previously TMS recently she will follow-up with [facility] 0 and doctor Nguyen Status at Discharge Functional status at discharge: independent ambulation Overall status at discharge: other (no driving) Time Spent with Patient Time attestation: Total time spent providing and/or coordinating discharge services: Time spent: Greater than 30 minutes Discharge Plan Discharge Patient Disposition: Home, Self-Care Discharge Diagnosis: major depression with psychotic features Referrals: Sharon Serna @ [facility] (therapists) [Other] - 04/02/21 1:00 am (Appointment scheduled for 04/02/21 @ 1 PM via telehealth.) Dr. Kalyn Nguyen (psychiatrists) [Other] - 04/11/21 12:20 pm (Appointment jose eduled for April 11, 2021 @ 12:20 PM in office.) Physician,Unknown [Primary Care Provider] - 04/09/21 11:15 am (Dr. Alan Butler PCP) Discharge Medications: New hydroxyzine HCl 25 mg Tablet 25 mg PO BEDTIME PRN (Reason: Anxiety) 15 Days Qty: 15 RF: 1 mirtazapine 15 mg tablet,disintegrating 15 mg PO BEDTIME 30 Days Qty: 30 RF: 1 olanzapine 7.5 mg tablet 7.5 mg PO BEDTIME 30 Days Qty: 30 RF: 1 olanzapine 2.5 mg Tablet 2.5 mg PO DAILY 30 Days Qty: 30 RF: 0 venlafaxine 225 mg tablet extended release 24hr 225 mg PO DAILY 30 Days Qty: 30 RF: 0 B-complex with vitamin C Tablet 1 tab PO DAILY 30 Days Qty: 30 RF: 0 Continued lorazepam 0.5 mg tablet 0.5 mg PO BID PRN (Reason: anxiety) Qty: 20 RF: 1 Discontinued quetiapine 25 mg Tablet 25 mg PO BID@0830,1430 30 Days Qty: 90 RF: 0 venlafaxine 150 mg Capsule,Extended Release 24hr 300 mg PO DAILY 30 Days Qty: 60 RF: 0 quetiapine 50 mg Tablet 150 mg PO BEDTIME 30 Days Qty: 90 RF: 0 Discharge Orders: Discharge Order (Routine); Ordered 04/01/21 Ordered By: Kyler Chambers Diet: advance to usual diet Activity on Discharge: no driving Stand Alone Forms: Patient Portal Discharge page, Community Support Activity Restrictions/Additional Instructions: ect scheduled for 04/02,04/07 Care Plan Goals: stable mood not overly depressed and anxious stop irrational guilt Health Concerns: depression irrational guilt Plan of Treatment: ect medication therapy Assessment: improved mood residual irrational guilt remains Discharge Date/Time: 04/01/21 13:15
== END 2021-04-01 13:15 | disposition home or self-care (01) | DRG 885 ==
LOC: HO.PGERI 10:07
PROVIDERS: Internal Medicine; Psychiatry & Neurology Psychiatry; Admitting Provider Psychiatry & Neurology Psychiatry; Visit Provider Psychiatry & Neurology Psychiatry
PROC: GZB4ZZZ Other Electroconvulsive Therapy (ICD-10-PCS; CPT 90870; principal; 2021-03-12 08:30)
PROC: (CPT 90870; principal; 2021-03-19 07:00)
DX: F33.2 Major depressive disorder, recurrent severe without psychotic features (principal); R45.851 Suicidal ideations; F42.9 Obsessive-compulsive disorder, unspecified; R94.31 Abnormal electrocardiogram [ECG] [EKG]; Z20.822 Contact with and (suspected) exposure to COVID-19; Z79.899 Other long term (current) drug therapy
CPT/HCPCS: 36415; 70450; 70480; 82947; 87635; 90870; 93005; 99232; C9803; J0330; J1885; J2405

== ENCOUNTER 2021-04-02 06:52 | Day surgery (SDC) | payer MEDICARE, BC, SELFPAY ==
[2021-04-02] VITALS (8 sets, daily range): BP systolic 148–184; BP diastolic 75–96; PULSE 68–82; RESP 12–20; TEMP 36.2–36.8; O2SAT 97–100
--- NOTE | 2021-04-02 07:05 | P.CONAN_ITS ---
[facility] Active Problems Active Problems: All Active Problems (Updated 03/18/21 @ 00:02 by Background Yossi platt) Major depressive disorder, recurrent severe without psychotic features (Acute) OCD (obsessive compulsive disorder) (Acute) Abnormal finding on EKG (Acute) Past Medical History Medical History Depression Major depressive disorder, recurrent severe without psychotic features OCD (obsessive compulsive disorder) S/P ECT (electroconvulsive therapy) Family History Family History Mother CHF (congestive heart failure) Family history of problems with anesthesia: No Surgical History Surgical History No history of previous surgery History of Problems with Anesthesia: No Social History Social History Household Members: Spouse Housing: Condominium Do you presently have visiting nurse or other home services: No Patient Tobacco Use Status: Never used Tobacco Advance Directives: No Advance Directives Information Provided: Yes service: No Sexual orientation: Straight/Heterosexual Meds Allergies Allergy/AdvReac Type Severity Reaction Status Date / Time No Known Allergies Allergy Verified 11/20/20 11:36 [No Known Allergies*] Exam Exam Date and Time: April 02, 2021 0705 Airway Mallampati Class: II (Caps laterally) TM Dist: >3cm Neck ROM: Full Heart: rrr Lungs: cta Assessment and Plan Assessment Anesthesia Assessment: Anesthesia Plan Discussed Final Anesthetic Review Family History of Problems with Anesthesia: No History of Problems with Anesthesia: No NPO: Yes (Sip water with meds) ASA Class: III Final Preanesthetic Review: No Changes in Pt Med Stat, Meds/Allgs Chart Reviewed and Consent Obtained/Reviewed Patient Risk: Intermediate Procedure Risk: Intermediate Anesthetic Plan Anesthetic Plan: GA Disposition: Standard PACU
--- NOTE | 2021-04-02 07:13 | MHC.SHP ---
Pre-Procedural Eval Section A Date of Service: 04/02/21 The patient is an INPATIENT: No Changes since office visit: Yes Changes in Medication and Yes Patient answered all questions; No Cold of Flu in the past 2 weeks and No New Medical Problems The History & Physical has been completed within 30 days and I have reviewed it.: Yes Section B Chief Complaint: depression Allergies: Allergies Allergy/AdvReac Type Severity Reaction Status Date / Time No Known Allergies Allergy Verified 11/20/20 11:36 [No Known Allergies*] Plan I have reviewed the history and physical and performed a pertinent physical examination on my patient. No changes have occurred unless specified.
--- NOTE | 2021-04-02 07:13 | HO.ECTPROC ---
ECT Procedure Note Diagnosis/Treatment Date of Service: 04/02/21 Diagnosis: Major Depressive Disorder Current Treatment Number: 8 Treatment: Series Interval Clinical Notes: improved mood less neg ruminations odd thoughts about actors on the unit ECT Settings Device: THYMATRON DGx Electrode Placement: Right Unilateral Program/Pulse Width: 0.50 Energy Percent: 15 Seizure Duration By EEG (in seconds): 64 Medications Administration General Anesthetic: Etomidate (12) Muscle Relaxant: Succinylcholine (100) Ancillary Medications Analgesics: Torodol - Pre ECT Anti-emetics: Zofran - Pre ECT Miscillaneous Medications: Propofol (30) Airway Management Airway Management: Bag Mask Ventilation Treatment Recommendations No Changes Recommended: No change Notes: improved mood monitor for paranoid psychosis
== END 2021-04-02 10:13 | disposition home or self-care (01) ==
PROVIDERS: Visit Provider Psychiatry & Neurology Psychiatry
PROC: (CPT 90870; principal; 2021-04-02 07:00)
DX: F33.3 Major depressive disorder, recurrent, severe with psychotic symptoms (principal)
CPT/HCPCS: 90870; J0330; J1885; J2405

== ENCOUNTER 2021-04-09 05:57 | Day surgery (SDC) | payer MEDICARE, BC, SELFPAY ==
[2021-04-09] VITALS (7 sets, daily range): BP systolic 127–160; BP diastolic 66–88; PULSE 75–82; RESP 8–17; TEMP 36.3–36.8; O2SAT 98–100; BMI 20.5
--- NOTE | 2021-04-09 07:00 | HO.ANESPROP2 ---
[facility] Active Problems Active Problems: All Active Problems (Updated 03/18/21 @ 00:02 by Mandy Mataallie) Major depressive disorder, recurrent severe without psychotic features (Acute) OCD (obsessive compulsive disorder) (Acute) Abnormal finding on EKG (Acute) Past Medical History Medical History Depression Major depressive disorder, recurrent severe without psychotic features OCD (obsessive compulsive disorder) S/P ECT (electroconvulsive therapy) Family History Family History Mother CHF (congestive heart failure) Family history of problems with anesthesia: No Surgical History Surgical History No history of previous surgery History of Problems with Anesthesia: No Social History Social History Household Members: Spouse Housing: Condominium Do you presently have visiting nurse or other home services: No Patient Tobacco Use Status: Never used Tobacco Advance Directives: No Advance Directives Information Provided: Yes service: No Sexual orientation: Straight/Heterosexual Meds Allergies Allergy/AdvReac Type Severity Reaction Status Date / Time No Known Allergies Allergy Verified 11/20/20 11:36 [No Known Allergies*] Active Medications: Current Medications Lactated Ringer's (Lr) 1,000 mls @ 50 mls/hr IVCONT .Q20H DENISSE Exam Exam Date and Time: April 09, 2021 0700 Height,Weight and Vital Signs: Height 5 ft 4 in Weight 54.431 kg Last Vital Signs Temp 98.2 F 04/09/21 06:45 Pulse 75 04/09/21 06:45 Resp 17 04/09/21 06:45 BP 153/73 H 04/09/21 06:45 Pulse Ox 98 04/09/21 06:45 Airway Mallampati Class: II TM Dist: >3cm Neck ROM: Full Heart: rrr Lungs: cta Assessment and Plan Assessment Anesthesia Assessment: Anesthesia Plan Discussed and Chart Reviewed Final Anesthetic Review Family History of Problems with Anesthesia: No History of Problems with Anesthesia: No NPO: Yes ASA Class: III Final Preanesthetic Review: No Changes in Pt Med Stat, Meds/Allgs Chart Reviewed and Consent Obtained/Reviewed Patient Risk: Intermediate Procedure Risk: Intermediate Anesthetic Plan Anesthetic Plan: GA Disposition: Standard PACU
--- NOTE | 2021-04-09 07:20 | MHC.SHP ---
Pre-Procedural Eval Section A Date of Service: 04/09/21 The patient is an INPATIENT: No Changes since office visit: Yes Changes in Medication and Yes Patient answered all questions; No Cold of Flu in the past 2 weeks and No New Medical Problems The History & Physical has been completed within 30 days and I have reviewed it.: Yes Section B Chief Complaint: depressive disorder Allergies: Allergies Allergy/AdvReac Type Severity Reaction Status Date / Time No Known Allergies Allergy Verified 11/20/20 11:36 [No Known Allergies*] Plan I have reviewed the history and physical and performed a pertinent physical examination on my patient. No changes have occurred unless specified.
--- NOTE | 2021-04-09 08:00 | HO.ECTPROC ---
ECT Procedure Note Diagnosis/Treatment Date of Service: 04/09/21 Diagnosis: Major Depressive Disorder Previous ECT Date: 04/02/21 Current Treatment Number: 9 Treatment: Series Interval Clinical Notes: pt no longer psychotic much improved ECT Settings Device: THYMATRON DGx Electrode Placement: Right Unilateral Program/Pulse Width: 0.50 Energy Percent: 15 Seizure Duration By EEG (in seconds): 38 Medications Administration General Anesthetic: Etomidate (12) Muscle Relaxant: Succinylcholine (80) Ancillary Medications Analgesics: Torodol - Pre ECT Anti-emetics: Zofran - Pre ECT Miscillaneous Medications: Propofol Airway Management Airway Management: Bag Mask Ventilation Treatment Recommendations No Changes Recommended: No change Notes: pt much improved with 0.5 pulse width Pt Tolerated Procedure w/o Issue: Yes
== END 2021-04-09 09:00 | disposition home or self-care (01) ==
PROVIDERS: Visit Provider Psychiatry & Neurology Psychiatry
PROC: (CPT 90870; principal; 2021-04-09 07:30)
DX: F33.3 Major depressive disorder, recurrent, severe with psychotic symptoms (principal); F42.9 Obsessive-compulsive disorder, unspecified
CPT/HCPCS: 90870; J0330; J1885; J2405

== ENCOUNTER 2021-04-16 05:52 | Day surgery (SDC) | payer MEDICARE, BC, SELFPAY ==
[2021-04-16] VITALS (7 sets, daily range): BP systolic 146–188; BP diastolic 76–97; PULSE 67–78; RESP 17–20; TEMP 36.3–36.8; O2SAT 97–100; BMI 20.4
--- NOTE | 2021-04-16 06:54 | HO.ANESPROP2 ---
HPI - Anesthesia Eval Consult details Narrative: 80 yo female patient for ECT PMFSH Active Problems Active Problems: All Active Problems (Updated 03/18/21 @ 00:02 by Mandy Flores) Major depressive disorder, recurrent severe without psychotic features (Acute) OCD (obsessive compulsive disorder) (Acute) Abnormal finding on EKG (Acute) Past Medical History Medical History Major depressive disorder, recurrent severe without psychotic features OCD (obsessive compulsive disorder) S/P ECT (electroconvulsive therapy) Family History Family History Mother CHF (congestive heart failure) Family history of problems with anesthesia: No Surgical History Surgical History No history of previous surgery History of Problems with Anesthesia: No Social History Social History Household Members: Spouse Housing: Condominium Do you presently have visiting nurse or other home services: No Patient Tobacco Use Status: Never used Tobacco Are you DNR?: No Advance Directives: No Advance Directives Information Provided: Yes Recently lost weight without trying: No service: No Sexual orientation: Straight/Heterosexual Meds Allergies Allergy/AdvReac Type Severity Reaction Status Date / Time No Known Allergies Allergy Verified 11/20/20 11:36 [No Known Allergies*] Exam Exam Date and Time: April 16, 2021 0654 Height,Weight and Vital Signs: Height 5 ft 4.8 in Weight 55.338 kg Vital Signs Temp Pulse Resp BP Pulse Ox 04/16/21 06:15 98.3 F 68 20 146/76 H 100 Airway Mallampati Class: II TM Dist: >3cm Neck ROM: Full Heart: RRR Lungs: CTAB Assessment and Plan Assessment Anesthesia Assessment: Anesthesia Plan Discussed and Chart Reviewed Final Anesthetic Review Family History of Problems with Anesthesia: No History of Problems with Anesthesia: No NPO: Yes ASA Class: II Final Preanesthetic Review: No Changes in Pt Med Stat, Meds/Allgs Chart Reviewed, Consent Obtained/Reviewed and Anes Risks/Benef Reviewed Patient Risk: Low Procedure Risk: Intermediate Assessment/Block/Sedation in : Assess/Block/Sedation- Anesthetic Plan Anesthetic Plan: GA Disposition: Standard PACU
--- NOTE | 2021-04-16 07:10 | MHC.SHP ---
Pre-Procedural Eval Section A Date of Service: 04/16/21 The patient is an INPATIENT: No Changes since office visit: Yes Changes in Medication and Yes Patient answered all questions; No Cold of Flu in the past 2 weeks and No New Medical Problems The History & Physical has been completed within 30 days and I have reviewed it.: Yes Section B Chief Complaint: Severe Depression Allergies: Allergies Allergy/AdvReac Type Severity Reaction Status Date / Time No Known Allergies Allergy Verified 11/20/20 11:36 [No Known Allergies*] Plan I have reviewed the history and physical and performed a pertinent physical examination on my patient. No changes have occurred unless specified.
--- NOTE | 2021-04-16 07:27 | HO.ECTPROC ---
ECT Procedure Note Diagnosis/Treatment Date of Service: 04/16/21 Current Treatment Number: 10 ECT Settings Device: THYMATRON DGx Electrode Placement: Right Unilateral Program/Pulse Width: 0.50 Energy Percent: 15 Seizure Duration By EEG (in seconds): 66 Medications Administration General Anesthetic: Etomidate (12) Muscle Relaxant: Succinylcholine (80) Ancillary Medications Analgesics: Torodol - Pre ECT Anti-emetics: Zofran - Pre ECT Miscillaneous Medications: Propofol Airway Management Airway Management: Bag Mask Ventilation Treatment Recommendations No Changes Recommended: No change Pt Tolerated Procedure w/o Issue: Yes
== END 2021-04-16 08:37 | disposition home or self-care (01) ==
PROVIDERS: Visit Provider Psychiatry & Neurology Psychiatry
PROC: (CPT 90870; principal; 2021-04-16 07:00)
DX: F33.2 Major depressive disorder, recurrent severe without psychotic features (principal)
CPT/HCPCS: 90870; J0330; J1885; J2405

== ENCOUNTER 2021-04-30 05:57 | Day surgery (SDC) | payer MEDICARE, SELFPAY ==
[2021-04-30] VITALS (8 sets, daily range): BP systolic 133–151; BP diastolic 67–76; PULSE 63–75; RESP 12–18; TEMP 36.2–36.6; O2SAT 97–100; BMI 21.4
--- NOTE | 2021-04-30 06:48 | P.CONAN_ITS ---
[facility] Active Problems Active Problems: All Active Problems (Updated 03/18/21 @ 00:02 by Mandy Gamble) Major depressive disorder, recurrent severe without psychotic features (Acute) OCD (obsessive compulsive disorder) (Acute) Abnormal finding on EKG (Acute) Past Medical History Medical History Major depressive disorder, recurrent severe without psychotic features OCD (obsessive compulsive disorder) S/P ECT (electroconvulsive therapy) Family History Family History Mother CHF (congestive heart failure) Family history of problems with anesthesia: No Surgical History Surgical History No history of previous surgery History of Problems with Anesthesia: No Social History Social History Household Members: Spouse Housing: Condominium Do you presently have visiting nurse or other home services: No Patient Tobacco Use Status: Never used Tobacco Are you DNR?: No Advance Directives: No Advance Directives Information Provided: Yes service: No Sexual orientation: Straight/Heterosexual Meds Allergies Allergy/AdvReac Type Severity Reaction Status Date / Time No Known Allergies Allergy Verified 11/20/20 11:36 [No Known Allergies*] Active Medications: Current Medications Lactated Ringer's (Lr) 1,000 mls @ 50 mls/hr IVCONT .Q20H DENISSE Exam Exam Date and Time: April 30, 2021 0648 Height,Weight and Vital Signs: Height 5 ft 4 in Weight 56.699 kg Last Vital Signs Temp 97.2 F 04/30/21 06:42 Pulse 63 04/30/21 06:42 Resp 18 04/30/21 06:42 BP 136/71 04/30/21 06:42 Pulse Ox 100 04/30/21 06:42 Airway Mallampati Class: II TM Dist: >3cm Neck ROM: Full Heart: rrr Lungs: cta Assessment and Plan Assessment Anesthesia Assessment: Anesthesia Plan Discussed Final Anesthetic Review Family History of Problems with Anesthesia: No History of Problems with Anesthesia: No NPO: Yes ASA Class: III Final Preanesthetic Review: No Changes in Pt Med Stat, Meds/Allgs Chart Reviewed and Consent Obtained/Reviewed Patient Risk: Intermediate Procedure Risk: Intermediate Anesthetic Plan Anesthetic Plan: GA Disposition: Standard PACU
--- NOTE | 2021-04-30 07:07 | MHC.SHP ---
Pre-Procedural Eval Section A Date of Service: 04/30/21 The patient is an INPATIENT: No Changes since office visit: Yes Patient answered all questions; No Cold of Flu in the past 2 weeks, No New Medical Problems and No Changes in Medication The History & Physical has been completed within 30 days and I have reviewed it.: Yes Section B Chief Complaint: Severe Depression Allergies: Allergies Allergy/AdvReac Type Severity Reaction Status Date / Time No Known Allergies Allergy Verified 11/20/20 11:36 [No Known Allergies*] Plan I have reviewed the history and physical and performed a pertinent physical examination on my patient. No changes have occurred unless specified.
--- NOTE | 2021-04-30 07:25 | HO.ECTPROC ---
ECT Procedure Note Diagnosis/Treatment Date of Service: 04/30/21 Current Treatment Number: 11 Treatment: Maintenance Interval Clinical Notes: PT NOT DEPRESSED FULL AFFECT NO PSYCHOSIS NOTED ECT Settings Device: THYMATRON DGx Electrode Placement: Right Unilateral Program/Pulse Width: 0.50 Energy Percent: 15 Seizure Duration By EEG (in seconds): 63 Medications Administration General Anesthetic: Etomidate (12) Muscle Relaxant: Succinylcholine (80) Ancillary Medications Analgesics: Torodol - Pre ECT Anti-emetics: Zofran - Pre ECT Miscillaneous Medications: Propofol Airway Management Airway Management: Bag Mask Ventilation Treatment Recommendations No Changes Recommended: No change Notes: F/U [place] MAINTENANCE NOV 2020 Pt Tolerated Procedure w/o Issue: Yes
== END 2021-04-30 08:51 | disposition home or self-care (01) ==
PROVIDERS: Visit Provider Psychiatry & Neurology Psychiatry
PROC: (CPT 90870; principal; 2021-04-30 07:00)
DX: F33.2 Major depressive disorder, recurrent severe without psychotic features (principal); F42.9 Obsessive-compulsive disorder, unspecified; Z79.899 Other long term (current) drug therapy
CPT/HCPCS: 90870; J0330; J1885; J2405

== ENCOUNTER 2021-05-21 05:48 | Day surgery (SDC) | payer MEDICARE, OTHER, SELFPAY ==
[2021-05-21] VITALS (7 sets, daily range): BP systolic 129–154; BP diastolic 71–94; PULSE 67–772; RESP 16–95; TEMP 36.3–36.7; O2SAT 94–99; BMI 21.8
--- NOTE | 2021-05-21 06:41 | P.CONAN_ITS ---
FORMERLY [facility], [facility]–1983 Active Problems Active Problems: All Active Problems (Updated 03/18/21 @ 00:02 by Background Yossi platt) Major depressive disorder, recurrent severe without psychotic features (Acute) OCD (obsessive compulsive disorder) (Acute) Abnormal finding on EKG (Acute) Past Medical History Medical History Major depressive disorder, recurrent severe without psychotic features OCD (obsessive compulsive disorder) S/P ECT (electroconvulsive therapy) Family History Family History Mother CHF (congestive heart failure) Family history of problems with anesthesia: No Surgical History Surgical History No history of previous surgery History of Problems with Anesthesia: No Social History Social History Household Members: Spouse Housing: Condominium Do you presently have visiting nurse or other home services: No Patient Tobacco Use Status: Never used Tobacco Are you DNR?: No Advance Directives: No Advance Directives Information Provided: Yes service: No Sexual orientation: Straight/Heterosexual Meds Allergies Allergy/AdvReac Type Severity Reaction Status Date / Time No Known Allergies Allergy Verified 11/20/20 11:36 [No Known Allergies*] Exam Exam Date and Time: May 21, 2021 0641 Height,Weight and Vital Signs: Height 5 ft 4 in Weight 57.606 kg Last Vital Signs Temp 97.3 F 05/21/21 06:27 Pulse 67 05/21/21 06:27 Resp 16 05/21/21 06:27 BP 129/94 H 05/21/21 06:27 Pulse Ox 98 05/21/21 06:27 Airway Mallampati Class: II TM Dist: >3cm Neck ROM: Full Heart: rrr Lungs: cta Assessment and Plan Assessment Anesthesia Assessment: Anesthesia Plan Discussed and Chart Reviewed Final Anesthetic Review Family History of Problems with Anesthesia: No History of Problems with Anesthesia: No NPO: Yes ASA Class: III Final Preanesthetic Review: No Changes in Pt Med Stat, Meds/Allgs Chart Reviewed and Consent Obtained/Reviewed Patient Risk: Intermediate Procedure Risk: Intermediate Anesthetic Plan Anesthetic Plan: GA Disposition: Standard PACU
--- NOTE | 2021-05-21 07:37 | MHC.SHP ---
Pre-Procedural Eval Section A Date of Service: 05/21/21 The patient is an INPATIENT: No Changes since office visit: No Cold of Flu in the past 2 weeks, No New Medical Problems, No Changes in Medication and No Patient answered all questions Section B Chief Complaint: Severe Depression Allergies: Allergies Allergy/AdvReac Type Severity Reaction Status Date / Time No Known Allergies Allergy Verified 11/20/20 11:36 [No Known Allergies*] Plan I have reviewed the history and physical and performed a pertinent physical examination on my patient. No changes have occurred unless specified.
--- NOTE | 2021-05-21 07:38 | HO.ECTPROC ---
ECT Procedure Note Diagnosis/Treatment Date of Service: 05/21/21 Diagnosis: Major Depressive Disorder Previous ECT Date: 04/30/21 Treatment: Maintenance Interval Clinical Notes: Denies dysphoria, doing well ECT Settings Device: THYMATRON DGx Electrode Placement: Right Unilateral Program/Pulse Width: 0.50 Energy Percent: 15 Seizure Duration By EEG (in seconds): 83 (not recorded on ECT machine) By Motor Observation (in seconds): 59 Medications Administration General Anesthetic: Etomidate (12) Muscle Relaxant: Succinylcholine (80) Ancillary Medications Analgesics: Torodol - Pre ECT Anti-emetics: Zofran - Pre ECT Miscillaneous Medications: Propofol Airway Management Airway Management: Bag Mask Ventilation Treatment Recommendations No Changes Recommended: No change Pt Tolerated Procedure w/o Issue: Yes
== END 2021-05-21 09:10 | disposition home or self-care (01) ==
PROVIDERS: Psychiatry & Neurology Psychiatry; Visit Provider Psychiatry & Neurology Psychiatry
PROC: (CPT 90870; principal; 2021-05-21 07:00)
DX: F33.2 Major depressive disorder, recurrent severe without psychotic features (principal); Z79.899 Other long term (current) drug therapy
CPT/HCPCS: 90870; J0330; J1885; J2405

== ENCOUNTER 2021-06-20 06:00 | Day surgery (SDC) | payer MEDICARE, OTHER, SELFPAY ==
[2021-06-20] VITALS (7 sets, daily range): BP systolic 121–158; BP diastolic 70–87; PULSE 66–82; RESP 14–18; TEMP 36.4–36.8; O2SAT 96–100; BMI 22.1
--- NOTE | 2021-06-20 06:55 | P.CONAN_ITS ---
FORMERLY [facility], [facility] Active Problems Active Problems: All Active Problems (Updated 03/18/21 @ 00:02 by Mandy Gamble) Major depressive disorder, recurrent severe without psychotic features (Acute) OCD (obsessive compulsive disorder) (Acute) Abnormal finding on EKG (Acute) Past Medical History Medical History Major depressive disorder, recurrent severe without psychotic features OCD (obsessive compulsive disorder) S/P ECT (electroconvulsive therapy) Family History Family History Mother CHF (congestive heart failure) Family history of problems with anesthesia: No Surgical History Surgical History No history of previous surgery History of Problems with Anesthesia: No Social History Social History Household Members: Spouse Housing: Condominium Do you presently have visiting nurse or other home services: No Patient Tobacco Use Status: Never used Tobacco Use of substances other than those prescribed or required for medical reasons: No Are you DNR?: No Advance Directives: No Advance Directives Information Provided: Yes service: No Sexual orientation: Straight/Heterosexual Meds Allergies Allergy/AdvReac Type Severity Reaction Status Date / Time No Known Allergies Allergy Verified 11/20/20 11:36 [No Known Allergies*] Active Medications: Current Medications Lactated Ringer's (Lr) 1,000 mls @ 50 mls/hr IVCONT .Q20H DENISSE Exam Exam Date and Time: June 20, 2021 0655 Height,Weight and Vital Signs: Height 5 ft 3 in Weight 56.699 kg Last Vital Signs Temp 97.5 F 06/20/21 06:42 Pulse 66 06/20/21 06:42 Resp 16 06/20/21 06:42 BP 148/80 H 06/20/21 06:42 Pulse Ox 100 06/20/21 06:42 Airway Mallampati Class: II TM Dist: >3cm Neck ROM: Full Heart: rrr Lungs: cta Assessment and Plan Assessment Anesthesia Assessment: Anesthesia Plan Discussed and Chart Reviewed Final Anesthetic Review Family History of Problems with Anesthesia: No History of Problems with Anesthesia: No NPO: Yes ASA Class: III Final Preanesthetic Review: No Changes in Pt Med Stat, Meds/Allgs Chart Reviewed and Consent Obtained/Reviewed Patient Risk: Intermediate Procedure Risk: Intermediate Anesthetic Plan Anesthetic Plan: GA Disposition: Standard PACU
--- NOTE | 2021-06-20 07:34 | MHC.SHP ---
Pre-Procedural Eval Section A Date of Service: 06/20/21 The patient is an INPATIENT: No Changes since office visit: Yes Patient answered all questions; No Cold of Flu in the past 2 weeks, No New Medical Problems and No Changes in Medication The History & Physical has been completed within 30 days and I have reviewed it.: Yes Section B Chief Complaint: depression Details of Present Illness: recurrent depression Relevant Social History: None Present Medications: see Short Stay Collaborative assessment Medical History: No relevant PMH Allergies: Allergies Allergy/AdvReac Type Severity Reaction Status Date / Time No Known Allergies Allergy Verified 11/20/20 11:36 [No Known Allergies*] Review of Systems Sugical H&P ROS: Negative: Cardiovascular, Respiratory and Neurological Exam Surgical H&P Exam: Normal: Heart, Normal: Lungs and Normal: Neurological Plan Diagnosis/Plan: Unchanged I have reviewed the history and physical and performed a pertinent physical examination on my patient. No changes have occurred unless specified.
--- NOTE | 2021-06-20 07:45 | HO.ECTPROC ---
ECT Procedure Note Diagnosis/Treatment Date of Service: 06/20/21 Diagnosis: Major Depressive Disorder Previous ECT Date: 05/21/21 Treatment: Maintenance Interval Clinical Notes: pt has relapsed with depressive sx no psychosis ECT Settings Device: THYMATRON DGx Electrode Placement: Right Unilateral Program/Pulse Width: 0.50 Energy Percent: 15 Seizure Duration By EEG (in seconds): 84 Medications Administration General Anesthetic: Etomidate Muscle Relaxant: Succinylcholine Ancillary Medications Analgesics: Torodol - Pre ECT Anti-emetics: Zofran - Pre ECT Airway Management Airway Management: Bag Mask Ventilation Treatment Recommendations No Changes Recommended: No change Notes: schedule f/u tx next week pt to see dr guallpa her psychiatrist ? inc mirtazapine Pt Tolerated Procedure w/o Issue: Yes
== END 2021-06-20 09:15 | disposition home or self-care (01) ==
PROVIDERS: Visit Provider Psychiatry & Neurology Psychiatry
PROC: (CPT 90870; principal; 2021-06-20 07:00)
DX: F33.2 Major depressive disorder, recurrent severe without psychotic features (principal); F42.9 Obsessive-compulsive disorder, unspecified
CPT/HCPCS: 90870; J0330; J1885; J2405

== ENCOUNTER 2021-06-25 05:53 | Day surgery (SDC) | payer MEDICARE, BC, SELFPAY ==
[2021-06-25] VITALS (8 sets, daily range): BP systolic 155–174; BP diastolic 81–91; PULSE 66–79; RESP 16; TEMP 36.3–36.8; O2SAT 97–100; BMI 22.1
[2021-06-25 06:37] LABS: COVID-19 Test Negative (Negative); IDNOW Serial# 9DD0AD1C
--- NOTE | 2021-06-25 06:52 | P.CONAN_ITS ---
[facility] Active Problems Active Problems: All Active Problems (Updated 03/18/21 @ 00:02 by Background Yossi platt) Major depressive disorder, recurrent severe without psychotic features (Acute) OCD (obsessive compulsive disorder) (Acute) Abnormal finding on EKG (Acute) Past Medical History Medical History Major depressive disorder, recurrent severe without psychotic features OCD (obsessive compulsive disorder) S/P ECT (electroconvulsive therapy) Functional capacity: independent ambulation Patient : No Family History Family History Mother CHF (congestive heart failure) Family history of problems with anesthesia: No Surgical History Surgical History No history of previous surgery History of Problems with Anesthesia: No Social History Social History Household Members: Spouse Housing: Condominium Do you presently have visiting nurse or other home services: No Patient Tobacco Use Status: Never used Tobacco Advance Directives: No Advance Directives Information Provided: Yes service: No Sexual orientation: Straight/Heterosexual Meds Allergies Allergy/AdvReac Type Severity Reaction Status Date / Time No Known Allergies Allergy Verified 11/20/20 11:36 [No Known Allergies*] Exam Exam Date and Time: June 25, 2021 0652 Pertinent Lab Results Pertinent Lab Results: Laboratory Tests 06/25/21 06:06 COVID-19 ([facility]) Negative COVID-19 Clin Com See Note Airway Mallampati Class: II TM Dist: >3cm Neck ROM: Full Heart: RRR Lungs: CTA Assessment and Plan Final Anesthetic Review Family History of Problems with Anesthesia: No History of Problems with Anesthesia: No Final Preanesthetic Review: No Changes in Pt Med Stat, Meds/Allgs Chart Reviewed, Consent Obtained/Reviewed and Anes Risks/Benef Reviewed Patient Risk: Low Procedure Risk: Low Anesthetic Plan Anesthetic Plan: GA Disposition: Standard PACU
--- NOTE | 2021-06-25 07:10 | MHC.SHP ---
Pre-Procedural Eval Section A Date of Service: 06/25/21 The patient is an INPATIENT: No Changes since office visit: Yes Patient answered all questions; No Cold of Flu in the past 2 weeks, No New Medical Problems and No Changes in Medication The History & Physical has been completed within 30 days and I have reviewed it.: Yes Section B Chief Complaint: depression Allergies: Allergies Allergy/AdvReac Type Severity Reaction Status Date / Time No Known Allergies Allergy Verified 11/20/20 11:36 [No Known Allergies*] Plan I have reviewed the history and physical and performed a pertinent physical examination on my patient. No changes have occurred unless specified.
--- NOTE | 2021-06-25 07:25 | HO.ECTPROC ---
ECT Procedure Note Diagnosis/Treatment Date of Service: 06/25/21 Diagnosis: Major Depressive Disorder Current Treatment Number: 3 Treatment: Series Interval Clinical Notes: pt remains depressed some improved ECT Settings Device: THYMATRON DGx Electrode Placement: Right Unilateral Program/Pulse Width: 0.50 Energy Percent: 10 Seizure Duration By EEG (in seconds): 70 Medications Administration General Anesthetic: Etomidate (12) Muscle Relaxant: Succinylcholine (100) Ancillary Medications Analgesics: Torodol - Pre ECT Anti-emetics: Zofran - Pre ECT Miscillaneous Medications: Propofol (30) Airway Management Airway Management: Bag Mask Ventilation Treatment Recommendations No Changes Recommended: No change Program/Pulse Width: 0.25 Notes: monitor response ect scheduled for next wk Pt Tolerated Procedure w/o Issue: Yes
--- NOTE | 2021-06-25 08:36 | HO.POSTANES ---
Post Anesthesia Evaluation Post Anesthesia Evaluation Vital Signs: Vital Signs Temp Pulse Resp BP Pulse Ox 06/25/21 08:30 98.2 F 70 16 155/82 H 97 06/25/21 08:15 70 16 164/83 H 98 06/25/21 08:00 73 16 174/85 H 99 06/25/21 07:45 68 16 171/85 H 97 06/25/21 07:40 69 16 163/91 H 97 06/25/21 07:35 69 16 158/81 H 97 06/25/21 07:30 98.0 F 79 16 158/82 H 100 06/25/21 06:56 97.3 F 66 16 156/82 H 98 Anesthesia: General Mental Status: Awake Pain Control: Satisfactory Nausea/Vomiting: None Hydration: Adequate Anesthesia-Related Issues: No Anes. Related Issues
== END 2021-06-25 08:55 | disposition home or self-care (01) ==
PROVIDERS: Visit Provider Psychiatry & Neurology Psychiatry
PROC: (CPT 90870; principal; 2021-06-25 07:00)
DX: F33.2 Major depressive disorder, recurrent severe without psychotic features (principal); F42.9 Obsessive-compulsive disorder, unspecified; Z20.822 Contact with and (suspected) exposure to COVID-19; Z79.899 Other long term (current) drug therapy
CPT/HCPCS: 36415; 87635; 90870; J0330; J1885; J2405

== ENCOUNTER 2021-07-02 05:57 | Day surgery (SDC) | payer MEDICARE, BC, SELFPAY ==
[2021-07-02] VITALS (8 sets, daily range): BP systolic 145–189; BP diastolic 72–95; PULSE 62–79; RESP 13–16; TEMP 36.4–36.5; O2SAT 97–100; BMI 22.1
--- NOTE | 2021-07-02 06:44 | HO.ANESPROP2 ---
[facility]S IN[facility] BEDS AT THE [facility] Active Problems Active Problems: All Active Problems (Updated 03/18/21 @ 00:02 by Mandy Flores) Major depressive disorder, recurrent severe without psychotic features (Acute) OCD (obsessive compulsive disorder) (Acute) Abnormal finding on EKG (Acute) Past Medical History Medical History Major depressive disorder, recurrent severe without psychotic features OCD (obsessive compulsive disorder) S/P ECT (electroconvulsive therapy) Family History Family History Mother CHF (congestive heart failure) Family history of problems with anesthesia: No Surgical History Surgical History No history of previous surgery History of Problems with Anesthesia: No Social History Social History Household Members: Spouse Housing: Condominium Do you presently have visiting nurse or other home services: No Patient Tobacco Use Status: Never used Tobacco Advance Directives: No Advance Directives Information Provided: Yes service: No Sexual orientation: Straight/Heterosexual Meds Allergies Allergy/AdvReac Type Severity Reaction Status Date / Time No Known Allergies Allergy Verified 11/20/20 11:36 [No Known Allergies*] Active Medications: Current Medications Lactated Ringer's (Lr) 1,000 mls @ 50 mls/hr IVCONT .Q20H DENISSE Exam Exam Date and Time: July 02, 2021 0644 Airway Mallampati Class: II TM Dist: >3cm Neck ROM: Full Heart: rrr Lungs: cta Assessment and Plan Assessment Anesthesia Assessment: Anesthesia Plan Discussed and Chart Reviewed Final Anesthetic Review Family History of Problems with Anesthesia: No History of Problems with Anesthesia: No NPO: Yes ASA Class: III Final Preanesthetic Review: No Changes in Pt Med Stat, Meds/Allgs Chart Reviewed and Consent Obtained/Reviewed Patient Risk: Intermediate Procedure Risk: Intermediate Anesthetic Plan Anesthetic Plan: GA Disposition: Standard PACU
--- NOTE | 2021-07-02 07:10 | MHC.SHP ---
Pre-Procedural Eval Section A Date of Service: 07/02/21 The patient is an INPATIENT: No Changes since office visit: Yes Changes in Medication and Yes Patient answered all questions; No Cold of Flu in the past 2 weeks and No New Medical Problems The History & Physical has been completed within 30 days and I have reviewed it.: Yes Section B Chief Complaint: depression Details of Present Illness: recurrent depression Present Medications: see Short Stay Collaborative assessment Medical History: No relevant PMH Allergies: Allergies Allergy/AdvReac Type Severity Reaction Status Date / Time No Known Allergies Allergy Verified 11/20/20 11:36 [No Known Allergies*] Review of Systems Sugical H&P ROS: Negative: Cardiovascular, Respiratory and Neurological Exam Surgical H&P Exam: Normal: HEENT, Normal: Heart (rr) and Normal: Lungs (clear) Plan Diagnosis/Plan: Unchanged I have reviewed the history and physical and performed a pertinent physical examination on my patient. No changes have occurred unless specified.
--- NOTE | 2021-07-02 07:25 | HO.ECTPROC ---
ECT Procedure Note Diagnosis/Treatment Date of Service: 07/02/21 Diagnosis: Major Depressive Disorder Previous ECT Date: 07/02/21 Current Treatment Number: 4 Treatment: Series Interval Clinical Notes: pt remains depressed anxious ruminating no psychosis ECT Settings Device: THYMATRON DGx Electrode Placement: Right Unilateral Program/Pulse Width: 0.25 Energy Percent: 15 Seizure Duration By EEG (in seconds): 70 Medications Administration General Anesthetic: Etomidate Muscle Relaxant: Succinylcholine Ancillary Medications Analgesics: Torodol - Pre ECT Anti-emetics: Zofran - Pre ECT Airway Management Airway Management: Bag Mask Ventilation Treatment Recommendations No Changes Recommended: No change Pt Tolerated Procedure w/o Issue: Yes
== END 2021-07-02 08:29 | disposition home or self-care (01) ==
PROVIDERS: Visit Provider Psychiatry & Neurology Psychiatry
PROC: (CPT 90870; principal; 2021-07-02 07:30)
DX: F33.2 Major depressive disorder, recurrent severe without psychotic features (principal); F42.9 Obsessive-compulsive disorder, unspecified; Z79.899 Other long term (current) drug therapy
CPT/HCPCS: 90870; J0330; J1885; J2405

== ENCOUNTER 2021-07-09 06:00 | Day surgery (SDC) | payer MEDICARE, BC, SELFPAY ==
[2021-07-09] VITALS (7 sets, daily range): BP systolic 143–161; BP diastolic 65–86; PULSE 69–78; RESP 12–16; TEMP 36.2; O2SAT 96–100; BMI 22.1
[2021-07-09 06:29] LABS: COVID-19 Test Negative (Negative)
--- NOTE | 2021-07-09 06:50 | HO.ANESPROP2 ---
[facility] Active Problems Active Problems: All Active Problems (Updated 03/18/21 @ 00:02 by Mandy Flores) Major depressive disorder, recurrent severe without psychotic features (Acute) OCD (obsessive compulsive disorder) (Acute) Abnormal finding on EKG (Acute) Past Medical History Medical History Major depressive disorder, recurrent severe without psychotic features OCD (obsessive compulsive disorder) S/P ECT (electroconvulsive therapy) Family History Family History Mother CHF (congestive heart failure) Family history of problems with anesthesia: No Surgical History Surgical History No history of previous surgery History of Problems with Anesthesia: No Social History Social History Household Members: Spouse Housing: Condominium Do you presently have visiting nurse or other home services: No Patient Tobacco Use Status: Never used Tobacco Advance Directives: No Advance Directives Information Provided: Yes service: No Sexual orientation: Straight/Heterosexual Meds Allergies Allergy/AdvReac Type Severity Reaction Status Date / Time No Known Allergies Allergy Verified 11/20/20 11:36 [No Known Allergies*] Active Medications: Current Medications Lactated Ringer's (Lr) 1,000 mls @ 50 mls/hr IVCONT .Q20H DENISSE Exam Exam Date and Time: July 09, 2021 0650 Pertinent Lab Results Pertinent Lab Results: Laboratory Tests 07/09/21 06:00 COVID-19 ([facility]) Negative COVID-19 Clin Com See Note Airway Mallampati Class: II TM Dist: >3cm Neck ROM: Full Heart: rrr Lungs: cta Assessment and Plan Assessment Anesthesia Assessment: Anesthesia Plan Discussed and Chart Reviewed Final Anesthetic Review Family History of Problems with Anesthesia: No History of Problems with Anesthesia: No NPO: Yes ASA Class: III Final Preanesthetic Review: No Changes in Pt Med Stat, Meds/Allgs Chart Reviewed and Consent Obtained/Reviewed Patient Risk: Intermediate Procedure Risk: Intermediate Anesthetic Plan Anesthetic Plan: GA Disposition: Standard PACU
--- NOTE | 2021-07-09 07:15 | MHC.SHP ---
Pre-Procedural Eval Section A Date of Service: 07/09/21 Changes since office visit: Yes Patient answered all questions; No Cold of Flu in the past 2 weeks, No New Medical Problems and No Changes in Medication The History & Physical has been completed within 30 days and I have reviewed it.: Yes Section B Chief Complaint: depression Allergies: Allergies Allergy/AdvReac Type Severity Reaction Status Date / Time No Known Allergies Allergy Verified 11/20/20 11:36 [No Known Allergies*] Plan I have reviewed the history and physical and performed a pertinent physical examination on my patient. No changes have occurred unless specified.
--- NOTE | 2021-07-09 07:15 | HO.ECTPROC ---
ECT Procedure Note Diagnosis/Treatment Date of Service: 07/09/21 Diagnosis: Major Depressive Disorder Previous ECT Date: 07/02/21 Current Treatment Number: 5 Treatment: Series Interval Clinical Notes: Patient continues to be somewhat flat dysphoric generally imp proving but remains depressed ECT Settings Device: THYMATRON DGx Electrode Placement: Right Unilateral Program/Pulse Width: 0.25 Energy Percent: 20 Seizure Duration By EEG (in seconds): 64 Medications Administration General Anesthetic: Etomidate (12) Muscle Relaxant: Succinylcholine (80) Ancillary Medications Analgesics: Torodol - Pre ECT Anti-emetics: Zofran - Pre ECT Miscillaneous Medications: Propofol (30) Airway Management Airway Management: Bag Mask Ventilation Treatment Recommendations No Changes Recommended: No change Notes: f/u tx 1 week Pt Tolerated Procedure w/o Issue: Yes
== END 2021-07-09 08:44 | disposition home or self-care (01) ==
PROVIDERS: Visit Provider Psychiatry & Neurology Psychiatry
PROC: (CPT 90870; principal; 2021-07-09 07:00)
DX: F33.2 Major depressive disorder, recurrent severe without psychotic features (principal); F42.9 Obsessive-compulsive disorder, unspecified; Z20.822 Contact with and (suspected) exposure to COVID-19
CPT/HCPCS: 36415; 87635; 90870; J0330; J1885; J2405

== ENCOUNTER 2021-07-14 05:52 | Day surgery (SDC) | payer MEDICARE, BC, SELFPAY ==
[2021-07-14] VITALS (7 sets, daily range): BP systolic 136–163; BP diastolic 75–85; PULSE 70–79; RESP 15–18; TEMP 36.4–36.8; O2SAT 97–100; BMI 22.1
[2021-07-14 06:35] LABS: COVID-19 Test Negative (Negative)
--- NOTE | 2021-07-14 07:04 | P.CONAN_ITS ---
[facility] Active Problems Active Problems: All Active Problems (Updated 03/18/21 @ 00:02 by Background Yossi platt) Major depressive disorder, recurrent severe without psychotic features (Acute) OCD (obsessive compulsive disorder) (Acute) Abnormal finding on EKG (Acute) Past Medical History Medical History Major depressive disorder, recurrent severe without psychotic features OCD (obsessive compulsive disorder) S/P ECT (electroconvulsive therapy) Functional capacity: independent ambulation Family History Family History Mother CHF (congestive heart failure) Family history of problems with anesthesia: No Surgical History Surgical History No history of previous surgery History of Problems with Anesthesia: No Social History Social History Household Members: Spouse Housing: Condominium Do you presently have visiting nurse or other home services: No Patient Tobacco Use Status: Never used Tobacco Advance Directives: No Advance Directives Information Provided: Yes service: No Sexual orientation: Straight/Heterosexual Meds Allergies Allergy/AdvReac Type Severity Reaction Status Date / Time No Known Allergies Allergy Verified 11/20/20 11:36 [No Known Allergies*] Exam Exam Date and Time: July 14, 2021 0704 Height,Weight and Vital Signs: Height 5 ft 3 in Weight 56.699 kg Last Vital Signs Temp 97.6 F 07/14/21 06:52 Pulse 70 07/14/21 06:52 Resp 16 07/14/21 06:52 BP 136/77 07/14/21 06:52 Pulse Ox 99 07/14/21 06:52 Pertinent Lab Results Pertinent Lab Results: Laboratory Tests 07/14/21 06:09 COVID-19 (FANG) Negative COVID-19 Clin Com See Note Airway Mallampati Class: III TM Dist: >3cm Neck ROM: Full Loose/Missing/Broken Teeth: No Heart: RRR Lungs: CTA Assessment and Plan Assessment Anesthesia Assessment: Anesthesia Plan Discussed and Chart Reviewed Final Anesthetic Review Family History of Problems with Anesthesia: No History of Problems with Anesthesia: No NPO: Yes ASA Class: II Final Preanesthetic Review: Meds/Allgs Chart Reviewed, Consent Obtained/Reviewed and Anes Risks/Benef Reviewed Patient Risk: Low Procedure Risk: Intermediate Anesthetic Plan Anesthetic Plan: GA Disposition: Standard PACU
--- NOTE | 2021-07-14 07:07 | MHC.SHP ---
Pre-Procedural Eval Section A Date of Service: 07/14/21 The patient is an INPATIENT: No Changes since office visit: No Cold of Flu in the past 2 weeks, No New Medical Problems, No Changes in Medication and No Patient answered all questions The History & Physical has been completed within 30 days and I have reviewed it.: Yes Section B Chief Complaint: Severe Depression Allergies: Allergies Allergy/AdvReac Type Severity Reaction Status Date / Time No Known Allergies Allergy Verified 11/20/20 11:36 [No Known Allergies*] Plan I have reviewed the history and physical and performed a pertinent physical examination on my patient. No changes have occurred unless specified.
--- NOTE | 2021-07-14 07:07 | HO.ECTPROC ---
ECT Procedure Note Diagnosis/Treatment Date of Service: 07/14/21 Previous ECT Date: 07/09/21 Current Treatment Number: 7 Interval Clinical Notes: The patient looks less dysphoric ECT Settings Device: THYMATRON DGx Electrode Placement: Right Unilateral Program/Pulse Width: 0.25 Energy Percent: 20 Seizure Duration By EEG (in seconds): 0 (not recorded by EEG but seizure activity noticed until 48) By Motor Observation (in seconds): 36 Medications Administration General Anesthetic: Etomidate (12) Muscle Relaxant: Succinylcholine (80) Ancillary Medications Analgesics: Torodol - Pre ECT Anti-emetics: Zofran - Pre ECT Miscillaneous Medications: Propofol (30) Airway Management Airway Management: Bag Mask Ventilation Treatment Recommendations No Changes Recommended: No change Pt Tolerated Procedure w/o Issue: Yes
== END 2021-07-14 08:43 | disposition home or self-care (01) ==
PROVIDERS: Visit Provider Psychiatry & Neurology Psychiatry
PROC: (CPT 90870; principal; 2021-07-14 08:30)
DX: F33.2 Major depressive disorder, recurrent severe without psychotic features (principal); F42.9 Obsessive-compulsive disorder, unspecified; Z79.899 Other long term (current) drug therapy; Z20.822 Contact with and (suspected) exposure to COVID-19
CPT/HCPCS: 36415; 87635; 90870; J0330; J1885; J2405

== ENCOUNTER 2021-08-13 06:08 | Day surgery (SDC) | payer MEDICARE, BC, SELFPAY ==
[2021-08-13] VITALS (7 sets, daily range): BP systolic 140–159; BP diastolic 73–86; PULSE 70–77; RESP 16–18; TEMP 36.7–36.8; O2SAT 95–100; BMI 22.1
[2021-08-13 06:58] LABS: COVID-19 Test Negative (Negative)
--- NOTE | 2021-08-13 07:30 | MHC.SHP ---
Pre-Procedural Eval Section A Date of Service: 08/13/21 The patient is an INPATIENT: No Section B Chief Complaint: depression Details of Present Illness: hx psychotic depression Relevant Social History: None Present Medications: see Short Stay Collaborative assessment Medical History: No relevant PMH Allergies: Allergies Allergy/AdvReac Type Severity Reaction Status Date / Time No Known Allergies Allergy Verified 11/20/20 11:36 [No Known Allergies*] Review of Systems Sugical H&P ROS: Negative: Constitution, Cardiovascular, Respiratory (clear), Neurological and Psychiatric Exam Surgical H&P Exam: Normal: Heart, Normal: Lungs and Normal: Abdomen Plan Diagnosis/Plan: Unchanged I have reviewed the history and physical and performed a pertinent physical examination on my patient. No changes have occurred unless specified.
--- NOTE | 2021-08-13 07:38 | HO.ECTPROC ---
ECT Procedure Note Diagnosis/Treatment Date of Service: 08/13/21 Previous ECT Date: 07/14/21 Current Treatment Number: 8 Treatment: Maintenance Interval Clinical Notes: pt at baseline doing well no c/o side effects ECT Settings Device: THYMATRON DGx Electrode Placement: Right Unilateral Program/Pulse Width: 0.25 Energy Percent: 20 Seizure Duration By EEG (in seconds): 78 Medications Administration General Anesthetic: Etomidate (12) Muscle Relaxant: Succinylcholine (80) Ancillary Medications Analgesics: Torodol - Pre ECT Anti-emetics: Zofran - Pre ECT Miscillaneous Medications: Propofol (30) Airway Management Airway Management: Bag Mask Ventilation Treatment Recommendations No Changes Recommended: No change Notes: f/u tx 4 wks Pt Tolerated Procedure w/o Issue: Yes
--- NOTE | 2021-08-13 08:05 | HO.ANESPROP2 ---
[facility] Active Problems Active Problems: All Active Problems (Updated 03/18/21 @ 00:02 by Mandy Flores) Major depressive disorder, recurrent severe without psychotic features (Acute) OCD (obsessive compulsive disorder) (Acute) Abnormal finding on EKG (Acute) Past Medical History Medical History Major depressive disorder, recurrent severe without psychotic features OCD (obsessive compulsive disorder) S/P ECT (electroconvulsive therapy) Family History Family History Mother CHF (congestive heart failure) Family history of problems with anesthesia: No Surgical History Surgical History No history of previous surgery History of Problems with Anesthesia: No Social History Social History Household Members: Spouse Housing: Condominium Do you presently have visiting nurse or other home services: No Patient Tobacco Use Status: Never used Tobacco service: No Sexual orientation: Straight/Heterosexual Meds Allergies Allergy/AdvReac Type Severity Reaction Status Date / Time No Known Allergies Allergy Verified 11/20/20 11:36 [No Known Allergies*] Active Medications: Current Medications Lactated Ringer's (Lr) 1,000 mls @ 50 mls/hr IVCONT .Q20H DENISSE Exam Exam Date and Time: August 13, 2021 0805 Height,Weight and Vital Signs: Height 5 ft 3 in Weight 56.699 kg Last Vital Signs Temp 98.0 F 08/13/21 07:52 Pulse 77 08/13/21 08:03 Resp 16 08/13/21 08:03 BP 140/83 H 08/13/21 08:03 Pulse Ox 95 08/13/21 08:03 Pertinent Lab Results Pertinent Lab Results: Laboratory Tests 08/13/21 06:10 COVID-19 ([facility]) Negative COVID-19 Clin Com See Note Airway Mallampati Class: II TM Dist: >3cm Neck ROM: Full Heart: rrr Lungs: cts Assessment and Plan Assessment Anesthesia Assessment: Anesthesia Plan Discussed and Chart Reviewed Final Anesthetic Review Family History of Problems with Anesthesia: No History of Problems with Anesthesia: No NPO: Yes ASA Class: III Final Preanesthetic Review: No Changes in Pt Med Stat, Meds/Allgs Chart Reviewed and Consent Obtained/Reviewed Patient Risk: Intermediate Procedure Risk: Intermediate Anesthetic Plan Anesthetic Plan: GA Disposition: Standard PACU
== END 2021-08-13 08:57 | disposition home or self-care (01) ==
PROVIDERS: Visit Provider Psychiatry & Neurology Psychiatry
PROC: (CPT 90870; principal; 2021-08-13 07:00)
DX: F33.2 Major depressive disorder, recurrent severe without psychotic features (principal); F42.9 Obsessive-compulsive disorder, unspecified; Z79.899 Other long term (current) drug therapy; Z20.822 Contact with and (suspected) exposure to COVID-19
CPT/HCPCS: 87635; 90870; J0330; J1885; J2405

== ENCOUNTER 2021-09-10 05:58 | Day surgery (SDC) | payer MEDICARE, BC, SELFPAY ==
[2021-09-10] VITALS (7 sets, daily range): BP systolic 143–181; BP diastolic 72–87; PULSE 75–89; RESP 16; TEMP 36.4–36.9; O2SAT 95–100; BMI 22.1
[2021-09-10 06:44] LABS: COVID-19 Test Negative (Negative)
--- NOTE | 2021-09-10 07:06 | HO.ANESPROP2 ---
[facility] BEDS AT THE [facility] Active Problems Active Problems: All Active Problems (Updated 03/18/21 @ 00:02 by Mandy Flores) Major depressive disorder, recurrent severe without psychotic features (Acute) OCD (obsessive compulsive disorder) (Acute) Abnormal finding on EKG (Acute) Past Medical History Medical History Major depressive disorder, recurrent severe without psychotic features OCD (obsessive compulsive disorder) S/P ECT (electroconvulsive therapy) Functional capacity: independent ambulation Patient : No Family History Family History Mother CHF (congestive heart failure) Family history of problems with anesthesia: No Surgical History Surgical History No history of previous surgery History of Problems with Anesthesia: No Social History Social History Household Members: Spouse Housing: Condominium Do you presently have visiting nurse or other home services: No Patient Tobacco Use Status: Never used Tobacco Use of substances other than those prescribed or required for medical reasons: No Are you DNR?: Yes Advance Directives: No Advance Directives Information Provided: Yes service: No Sexual orientation: Straight/Heterosexual Meds Allergies Allergy/AdvReac Type Severity Reaction Status Date / Time No Known Allergies Allergy Verified 11/20/20 11:36 [No Known Allergies*] Exam Exam Date and Time: September 10, 2021 0706 Height,Weight and Vital Signs: Height 5 ft 3 in Weight 56.699 kg Last Vital Signs Temp 97.6 F 09/10/21 06:58 Pulse 75 09/10/21 06:58 Resp 16 09/10/21 06:58 BP 181/87 H 09/10/21 06:58 Pulse Ox 100 09/10/21 06:58 Pertinent Lab Results Pertinent Lab Results: Laboratory Tests 09/10/21 06:07 COVID-19 (FANG) Negative COVID-19 Clin Com See Note Airway Mallampati Class: II TM Dist: >3cm Neck ROM: Full Heart: RRR Lungs: CTA Assessment and Plan Final Anesthetic Review Family History of Problems with Anesthesia: No History of Problems with Anesthesia: No ASA Class: III Final Preanesthetic Review: No Changes in Pt Med Stat, Meds/Allgs Chart Reviewed, Consent Obtained/Reviewed and Anes Risks/Benef Reviewed Patient Risk: Low Procedure Risk: Low Anesthetic Plan Anesthetic Plan: GA Disposition: Standard PACU
--- NOTE | 2021-09-10 07:09 | MHC.SHP ---
Pre-Procedural Eval Section A Date of Service: 09/10/21 The patient is an INPATIENT: No Changes since office visit: Yes Patient answered all questions; No Cold of Flu in the past 2 weeks, No New Medical Problems and No Changes in Medication The History & Physical has been completed within 30 days and I have reviewed it.: Yes Section B Chief Complaint: depression Allergies: Allergies Allergy/AdvReac Type Severity Reaction Status Date / Time No Known Allergies Allergy Verified 11/20/20 11:36 [No Known Allergies*] Plan I have reviewed the history and physical and performed a pertinent physical examination on my patient. No changes have occurred unless specified.
--- NOTE | 2021-09-10 07:11 | HO.ECTPROC ---
ECT Procedure Note Diagnosis/Treatment Date of Service: 09/10/21 Diagnosis: Major Depressive Disorder Previous ECT Date: 08/13/21 Treatment: Maintenance Interval Clinical Notes: pt with siome increase anxiety mild dysphoria generally doing well maint ect ECT Settings Device: THYMATRON DGx Electrode Placement: Right Unilateral Program/Pulse Width: 0.25 Energy Percent: 15 Seizure Duration By EEG (in seconds): 73 Medications Administration General Anesthetic: Etomidate (12) Muscle Relaxant: Succinylcholine (80) Ancillary Medications Analgesics: Torodol - Pre ECT Anti-emetics: Zofran - Pre ECT Miscillaneous Medications: Propofol (30) Treatment Recommendations No Changes Recommended: No change Notes: delayed recruitment f/u tx 2-3 weeks Pt Tolerated Procedure w/o Issue: Yes
--- NOTE | 2021-09-10 10:11 | HO.POSTANES ---
Post Anesthesia Evaluation Post Anesthesia Evaluation Vital Signs: Vital Signs Temp Pulse Resp BP Pulse Ox 09/10/21 08:15 98.4 F 75 16 146/72 H 98 09/10/21 08:00 82 16 146/77 H 98 09/10/21 07:45 89 16 143/81 H 98 09/10/21 07:40 81 16 154/87 H 95 09/10/21 07:35 82 16 156/87 H 96 09/10/21 07:31 97.7 F 80 16 151/79 H 100 09/10/21 06:58 97.6 F 75 16 181/87 H 100 Anesthesia: General Mental Status: Awake Pain Control: Satisfactory Nausea/Vomiting: None Hydration: Adequate Anesthesia-Related Issues: No Anes. Related Issues
== END 2021-09-10 08:54 | disposition home or self-care (01) ==
PROVIDERS: Visit Provider Psychiatry & Neurology Psychiatry
PROC: (CPT 90870; principal; 2021-09-10 07:00)
DX: F33.2 Major depressive disorder, recurrent severe without psychotic features (principal); F42.9 Obsessive-compulsive disorder, unspecified; Z79.899 Other long term (current) drug therapy; Z20.822 Contact with and (suspected) exposure to COVID-19
CPT/HCPCS: 87635; 90870; J0330; J1885; J2405

== ENCOUNTER 2021-09-22 05:56 | Day surgery (SDC) | payer MEDICARE, BC, SELFPAY ==
[2021-09-22] VITALS (7 sets, daily range): BP systolic 113–155; BP diastolic 72–82; PULSE 76–87; RESP 13–18; TEMP 36.1–36.5; O2SAT 95–100; BMI 23.0
[2021-09-22 06:35] LABS: COVID-19 Test Negative (Negative)
--- NOTE | 2021-09-22 06:46 | HO.ANESPROP2 ---
[facility] Active Problems Active Problems: All Active Problems (Updated 03/18/21 @ 00:02 by Mandy Sandra) Major depressive disorder, recurrent severe without psychotic features (Acute) OCD (obsessive compulsive disorder) (Acute) Abnormal finding on EKG (Acute) Past Medical History Medical History Major depressive disorder, recurrent severe without psychotic features OCD (obsessive compulsive disorder) S/P ECT (electroconvulsive therapy) Family History Family History Mother CHF (congestive heart failure) Family history of problems with anesthesia: No Surgical History Surgical History No history of previous surgery History of Problems with Anesthesia: No Social History Social History Household Members: Spouse Housing: Condominium Do you presently have visiting nurse or other home services: No Patient Tobacco Use Status: Never used Tobacco Advance Directives: No Advance Directives Information Provided: Yes service: No Sexual orientation: Straight/Heterosexual Meds Allergies Allergy/AdvReac Type Severity Reaction Status Date / Time No Known Allergies Allergy Verified 11/20/20 11:36 [No Known Allergies*] Active Medications: Current Medications Lactated Ringer's (Lr) 1,000 mls @ 50 mls/hr IVCONT .Q20H DENISSE Exam Exam Date and Time: September 22, 2021 0646 Pertinent Lab Results Pertinent Lab Results: Laboratory Tests 09/22/21 06:05 COVID-19 ([facility]ANG) Negative COVID-19 Clin Com See Note Airway Mallampati Class: II TM Dist: >3cm Neck ROM: Full Heart: rrr Lungs: cta Assessment and Plan Assessment Anesthesia Assessment: Anesthesia Plan Discussed and Chart Reviewed Final Anesthetic Review Family History of Problems with Anesthesia: No History of Problems with Anesthesia: No NPO: Yes ASA Class: III Final Preanesthetic Review: No Changes in Pt Med Stat, Meds/Allgs Chart Reviewed and Consent Obtained/Reviewed Patient Risk: Intermediate Procedure Risk: Intermediate Anesthetic Plan Anesthetic Plan: GA Disposition: Standard PACU
--- NOTE | 2021-09-22 07:08 | MHC.SHP ---
Pre-Procedural Eval Section A Date of Service: 09/22/21 The patient is an INPATIENT: No Changes since office visit: Yes Patient answered all questions; No Cold of Flu in the past 2 weeks, No New Medical Problems and No Changes in Medication The History & Physical has been completed within 30 days and I have reviewed it.: Yes Section B Chief Complaint: depression Allergies: Allergies Allergy/AdvReac Type Severity Reaction Status Date / Time No Known Allergies Allergy Verified 11/20/20 11:36 [No Known Allergies*] Plan I have reviewed the history and physical and performed a pertinent physical examination on my patient. No changes have occurred unless specified.
--- NOTE | 2021-09-22 07:10 | HO.ECTPROC ---
ECT Procedure Note Diagnosis/Treatment Date of Service: 09/22/21 Diagnosis: Major Depressive Disorder Current Treatment Number: 1 Treatment: Series Interval Clinical Notes: Patient has relapse with significant depressive symptoms ruminating he thoughts at times she would be better off denies intent ECT Settings Device: THYMATRON DGx Program/Pulse Width: 0.25 Energy Percent: 15 Seizure Duration By EEG (in seconds): 76 Medications Administration General Anesthetic: Etomidate (12) Muscle Relaxant: Succinylcholine (80) Ancillary Medications Anti-emetics: Zofran - Pre ECT Airway Management Airway Management: Bag Mask Ventilation Treatment Recommendations Notes: Patient aware of possible need for inpatient if needed he her patient has number of crisis team or to come to emergency room if needed continue outpatient treatment series case has been reviewed with her outpatient psychiatrist Pt Tolerated Procedure w/o Issue: Yes
== END 2021-09-22 08:33 | disposition home or self-care (01) ==
PROVIDERS: Visit Provider Psychiatry & Neurology Psychiatry
PROC: (CPT 90870; principal; 2021-09-22 07:30)
DX: F33.3 Major depressive disorder, recurrent, severe with psychotic symptoms (principal); F42.9 Obsessive-compulsive disorder, unspecified; Z79.899 Other long term (current) drug therapy; Z20.822 Contact with and (suspected) exposure to COVID-19
CPT/HCPCS: 87635; 90870; J0330; J1885; J2405

== ENCOUNTER 2021-09-24 05:57 | Day surgery (SDC) | payer MEDICARE, BC, SELFPAY ==
[2021-09-24] VITALS (7 sets, daily range): BP systolic 136–155; BP diastolic 62–79; PULSE 73–82; RESP 12–18; TEMP 36.3–36.8; O2SAT 96–100; BMI 23.0
[2021-09-24 06:46] LABS: COVID-19 Test Negative (Negative)
--- NOTE | 2021-09-24 07:01 | HO.ANESPROP2 ---
[facility] Active Problems Active Problems: All Active Problems (Updated 03/18/21 @ 00:02 by Mandy Sandra) Major depressive disorder, recurrent severe without psychotic features (Acute) OCD (obsessive compulsive disorder) (Acute) Abnormal finding on EKG (Acute) Past Medical History Medical History Major depressive disorder, recurrent severe without psychotic features OCD (obsessive compulsive disorder) S/P ECT (electroconvulsive therapy) Family History Family History Mother CHF (congestive heart failure) Family history of problems with anesthesia: No Surgical History Surgical History No history of previous surgery History of Problems with Anesthesia: No Social History Social History Household Members: Spouse Housing: Condominium Do you presently have visiting nurse or other home services: No Patient Tobacco Use Status: Never used Tobacco Advance Directives: No Advance Directives Information Provided: Yes service: No Sexual orientation: Straight/Heterosexual Meds Allergies Allergy/AdvReac Type Severity Reaction Status Date / Time No Known Allergies Allergy Verified 11/20/20 11:36 [No Known Allergies*] Exam Exam Date and Time: September 24, 2021 07 Height,Weight and Vital Signs: Height 5 ft 3 in Weight 58.967 kg Last Vital Signs Temp 98.2 F 09/24/21 06:59 Pulse 75 09/24/21 06:59 Resp 18 09/24/21 06:59 BP 136/73 09/24/21 06:59 Pulse Ox 99 09/24/21 06:59 Pertinent Lab Results Pertinent Lab Results: Laboratory Tests 09/24/21 06:05 COVID-19 ([facility]ANG) Negative COVID-19 Clin Com See Note Airway Mallampati Class: II TM Dist: >3cm Neck ROM: Full Heart: rrr Lungs: cta Assessment and Plan Assessment Anesthesia Assessment: Anesthesia Plan Discussed and Chart Reviewed Final Anesthetic Review Family History of Problems with Anesthesia: No History of Problems with Anesthesia: No NPO: Yes ASA Class: III Final Preanesthetic Review: No Changes in Pt Med Stat and Meds/Allgs Chart Reviewed Patient Risk: Intermediate Procedure Risk: Intermediate Anesthetic Plan Anesthetic Plan: GA Disposition: Standard PACU
--- NOTE | 2021-09-24 07:27 | MHC.SHP ---
Pre-Procedural Eval Section A Date of Service: 09/24/21 The patient is an INPATIENT: No Changes since office visit: Yes Patient answered all questions; No Cold of Flu in the past 2 weeks, No New Medical Problems and No Changes in Medication The History & Physical has been completed within 30 days and I have reviewed it.: Yes Section B Chief Complaint: depression Allergies: Allergies Allergy/AdvReac Type Severity Reaction Status Date / Time No Known Allergies Allergy Verified 11/20/20 11:36 [No Known Allergies*] Plan I have reviewed the history and physical and performed a pertinent physical examination on my patient. No changes have occurred unless specified.
--- NOTE | 2021-09-24 07:35 | HO.ECTPROC ---
ECT Procedure Note Diagnosis/Treatment Date of Service: 09/29/21 Diagnosis: Major Depressive Disorder Previous ECT Date: 09/22/21 Current Treatment Number: 2 Treatment: Series Interval Clinical Notes: pt responded well after 1 tx lot of stress with moving much improved ECT Settings Device: THYMATRON DGx Electrode Placement: Right Unilateral Program/Pulse Width: 0.25 Energy Percent: 15 Seizure Duration By EEG (in seconds): 60 Medications Administration General Anesthetic: Etomidate (12) Muscle Relaxant: Succinylcholine (80) Ancillary Medications Anti-emetics: Zofran - Pre ECT Miscillaneous Medications: Propofol (30 post at 32 sec ) Airway Management Airway Management: Bag Mask Ventilation Treatment Recommendations No Changes Recommended: No change Notes: schedule in 1 week Pt Tolerated Procedure w/o Issue: Yes
== END 2021-09-24 08:39 | disposition home or self-care (01) ==
PROVIDERS: Visit Provider Psychiatry & Neurology Psychiatry
PROC: (CPT 90870; principal; 2021-09-24 07:30)
DX: F33.3 Major depressive disorder, recurrent, severe with psychotic symptoms (principal); F42.9 Obsessive-compulsive disorder, unspecified; Z20.822 Contact with and (suspected) exposure to COVID-19; Z79.899 Other long term (current) drug therapy
CPT/HCPCS: 87635; 90870; J0330; J2405

== ENCOUNTER 2021-10-01 05:55 | Day surgery (SDC) | payer MEDICARE, BC, SELFPAY ==
[2021-10-01] VITALS (7 sets, daily range): BP systolic 139–166; BP diastolic 72–85; PULSE 76–90; RESP 12–18; TEMP 36.2–36.6; O2SAT 98–100; BMI 22.1
[2021-10-01 06:37] LABS: COVID-19 Test Negative (Negative)
--- NOTE | 2021-10-01 06:51 | HO.ANESPROP2 ---
[facility] Active Problems Active Problems: All Active Problems (Updated 03/18/21 @ 00:02 by Mandy Sandra) Major depressive disorder, recurrent severe without psychotic features (Acute) OCD (obsessive compulsive disorder) (Acute) Abnormal finding on EKG (Acute) Past Medical History Medical History Major depressive disorder, recurrent severe without psychotic features OCD (obsessive compulsive disorder) S/P ECT (electroconvulsive therapy) Family History Family History Mother CHF (congestive heart failure) Family history of problems with anesthesia: No Surgical History Surgical History No history of previous surgery History of Problems with Anesthesia: No Social History Social History Household Members: Spouse Housing: Condominium Do you presently have visiting nurse or other home services: No Patient Tobacco Use Status: Never used Tobacco Advance Directives: No Advance Directives Information Provided: Yes service: No Sexual orientation: Straight/Heterosexual Meds Allergies Allergy/AdvReac Type Severity Reaction Status Date / Time No Known Allergies Allergy Verified 11/20/20 11:36 [No Known Allergies*] Exam Exam Date and Time: October 01, 2021 0651 Height,Weight and Vital Signs: Height 5 ft 3 in Weight 56.699 kg Last Vital Signs Temp 97.1 F 10/01/21 06:48 Pulse 90 10/01/21 06:48 Resp 18 10/01/21 06:48 BP 149/85 H 10/01/21 06:48 Pulse Ox 98 10/01/21 06:48 Pertinent Lab Results Pertinent Lab Results: Laboratory Tests 10/01/21 06:06 COVID-19 ([facility]ANG) Negative COVID-19 Clin Com See Note Airway Mallampati Class: II TM Dist: >3cm Neck ROM: Full Heart: rrr Lungs: cta Assessment and Plan Assessment Anesthesia Assessment: Anesthesia Plan Discussed and Chart Reviewed Final Anesthetic Review Family History of Problems with Anesthesia: No History of Problems with Anesthesia: No NPO: Yes ASA Class: III Final Preanesthetic Review: No Changes in Pt Med Stat, Meds/Allgs Chart Reviewed and Consent Obtained/Reviewed Patient Risk: Intermediate Procedure Risk: Intermediate Anesthetic Plan Anesthetic Plan: GA Disposition: Standard PACU
--- NOTE | 2021-10-01 07:09 | MHC.SHP ---
Pre-Procedural Eval Section A Date of Service: 10/01/21 The patient is an INPATIENT: No Changes since office visit: Yes Patient answered all questions; No Cold of Flu in the past 2 weeks, No New Medical Problems and No Changes in Medication The History & Physical has been completed within 30 days and I have reviewed it.: Yes Section B Chief Complaint: depression Allergies: Allergies Allergy/AdvReac Type Severity Reaction Status Date / Time No Known Allergies Allergy Verified 11/20/20 11:36 [No Known Allergies*] Plan I have reviewed the history and physical and performed a pertinent physical examination on my patient. No changes have occurred unless specified.
--- NOTE | 2021-10-01 07:26 | HO.ECTPROC ---
ECT Procedure Note Diagnosis/Treatment Date of Service: 10/01/21 Diagnosis: Major Depressive Disorder Previous ECT Date: 09/29/21 Current Treatment Number: 3 Treatment: Series Interval Clinical Notes: PT DEPRESSED THOUGHTS BETTER OFF STATES CAN MAINTAIN SAFETY CASE ALSO REVIEWED WITH REGARDING CONT TX AND SAFETY PLAN ECT Settings Device: THYMATRON DGx Electrode Placement: Right Unilateral Program/Pulse Width: 0.25 Energy Percent: 15 Seizure Duration By EEG (in seconds): 61 Medications Administration General Anesthetic: Etomidate (12) Muscle Relaxant: Succinylcholine (80) Ancillary Medications Anti-emetics: Zofran - Pre ECT Miscillaneous Medications: Propofol (30) Airway Management Airway Management: Bag Mask Ventilation Treatment Recommendations No Changes Recommended: No change Notes: F/U [place] 10/03/21 Pt Tolerated Procedure w/o Issue: Yes
== END 2021-10-01 08:53 | disposition home or self-care (01) ==
PROVIDERS: Visit Provider Psychiatry & Neurology Psychiatry
PROC: (CPT 90870; principal; 2021-10-01 07:00)
DX: F33.3 Major depressive disorder, recurrent, severe with psychotic symptoms (principal); F42.9 Obsessive-compulsive disorder, unspecified; Z79.899 Other long term (current) drug therapy; Z20.822 Contact with and (suspected) exposure to COVID-19
CPT/HCPCS: 87635; 90870; J0330; J1885; J2405

== ENCOUNTER 2021-10-03 08:16 | Day surgery (SDC) | payer MEDICARE, BC, SELFPAY ==
[2021-10-03] VITALS (8 sets, daily range): BP systolic 133–152; BP diastolic 68–78; PULSE 70–82; RESP 11–16; TEMP 36.6–36.8; O2SAT 96–100; BMI 21.9
[2021-10-03 08:38] LABS: COVID-19 Test Negative (Negative)
--- NOTE | 2021-10-03 08:51 | P.CONAN_ITS ---
[facility] Active Problems Active Problems: All Active Problems (Updated 03/18/21 @ 00:02 by Mandy Sandra) Major depressive disorder, recurrent severe without psychotic features (Acute) OCD (obsessive compulsive disorder) (Acute) Abnormal finding on EKG (Acute) Past Medical History Medical History Major depressive disorder, recurrent severe without psychotic features OCD (obsessive compulsive disorder) S/P ECT (electroconvulsive therapy) Family History Family History Mother CHF (congestive heart failure) Family history of problems with anesthesia: No Surgical History Surgical History No history of previous surgery History of Problems with Anesthesia: No Social History Social History Household Members: Spouse Housing: Condominium Do you presently have visiting nurse or other home services: No Patient Tobacco Use Status: Never used Tobacco Advance Directives: No Advance Directives Information Provided: Yes service: No Sexual orientation: Straight/Heterosexual Meds Allergies Allergy/AdvReac Type Severity Reaction Status Date / Time No Known Allergies Allergy Verified 11/20/20 11:36 [No Known Allergies*] Exam Exam Date and Time: October 03, 2021 0851 Height,Weight and Vital Signs: Height 5 ft 3 in Weight 56.245 kg Last Vital Signs Temp 97.9 F 10/03/21 08:46 Pulse 79 10/03/21 08:46 Resp 16 10/03/21 08:46 BP 152/78 H 10/03/21 08:46 Pulse Ox 98 10/03/21 08:46 Pertinent Lab Results Pertinent Lab Results: Laboratory Tests 10/03/21 08:18 COVID-19 ([facility]) Negative COVID-19 Clin Com See Note Airway Mallampati Class: II TM Dist: >3cm Neck ROM: Full Heart: rrr Lungs: cta Assessment and Plan Assessment Anesthesia Assessment: Anesthesia Plan Discussed and Chart Reviewed Final Anesthetic Review Family History of Problems with Anesthesia: No History of Problems with Anesthesia: No NPO: Yes ASA Class: III Final Preanesthetic Review: No Changes in Pt Med Stat, Meds/Allgs Chart Reviewed and Consent Obtained/Reviewed Patient Risk: Intermediate Procedure Risk: Intermediate Anesthetic Plan Anesthetic Plan: GA Disposition: Standard PACU
--- NOTE | 2021-10-03 09:51 | MHC.SHP ---
Pre-Procedural Eval Section A Date of Service: 10/03/21 The patient is an INPATIENT: No Changes since office visit: Yes Cold of Flu in the past 2 weeks, Yes New Medical Problems, Yes Changes in Medication and Yes Patient answered all questions The History & Physical has been completed within 30 days and I have reviewed it.: Yes Section B Chief Complaint: depression Allergies: Allergies Allergy/AdvReac Type Severity Reaction Status Date / Time No Known Allergies Allergy Verified 11/20/20 11:36 [No Known Allergies*] Plan I have reviewed the history and physical and performed a pertinent physical examination on my patient. No changes have occurred unless specified.
--- NOTE | 2021-10-03 10:07 | HO.ECTPROC ---
ECT Procedure Note Diagnosis/Treatment Date of Service: 10/03/21 Diagnosis: Major Depressive Disorder Previous ECT Date: 10/01/21 Current Treatment Number: 4 Treatment: Series Interval Clinical Notes: still qutie depressed not suicidal ECT Settings Device: THYMATRON DGx Electrode Placement: Right Unilateral Program/Pulse Width: 0.25 Energy Percent: 15 Seizure Duration By EEG (in seconds): 31 Medications Administration General Anesthetic: Etomidate (12) Muscle Relaxant: Succinylcholine (80) Ancillary Medications Analgesics: Torodol - Pre ECT Anti-emetics: Zofran - Pre ECT Miscillaneous Medications: Propofol (30) Airway Management Airway Management: Bag Mask Ventilation Treatment Recommendations Notes: change to 0.5 program cont series Pt Tolerated Procedure w/o Issue: Yes
== END 2021-10-03 11:28 | disposition home or self-care (01) ==
PROVIDERS: Visit Provider Psychiatry & Neurology Psychiatry
PROC: (CPT 90870; principal; 2021-10-03 10:00)
DX: F33.2 Major depressive disorder, recurrent severe without psychotic features (principal); F42.9 Obsessive-compulsive disorder, unspecified; Z20.822 Contact with and (suspected) exposure to COVID-19
CPT/HCPCS: 87635; 90870; J0330; J1885; J2405

== ENCOUNTER 2021-10-06 06:14 | Day surgery (SDC) | payer MEDICARE, BC, SELFPAY ==
[2021-10-06] VITALS (7 sets, daily range): BP systolic 154–181; BP diastolic 78–96; PULSE 69–96; RESP 10–18; TEMP 36.1–36.6; O2SAT 98–100; BMI 21.2
[2021-10-06 06:42] LABS: COVID-19 Test Negative (Negative); IDNOW Serial# 16C4AD1C
--- NOTE | 2021-10-06 06:49 | P.CONAN_ITS ---
[facility] Active Problems Active Problems: All Active Problems (Updated 03/18/21 @ 00:02 by Mandy Flores) Major depressive disorder, recurrent severe without psychotic features (Acute) OCD (obsessive compulsive disorder) (Acute) Abnormal finding on EKG (Acute) Past Medical History Medical History Major depressive disorder, recurrent severe without psychotic features OCD (obsessive compulsive disorder) S/P ECT (electroconvulsive therapy) Functional capacity: independent ambulation Patient : No Family History Family History Mother CHF (congestive heart failure) Family history of problems with anesthesia: No Surgical History Surgical History No history of previous surgery History of Problems with Anesthesia: No Social History Social History Household Members: Spouse Housing: Condominium Do you presently have visiting nurse or other home services: No Patient Tobacco Use Status: Never used Tobacco Advance Directives: No Advance Directives Information Provided: Yes service: No Sexual orientation: Straight/Heterosexual Meds Allergies Allergy/AdvReac Type Severity Reaction Status Date / Time No Known Allergies Allergy Verified 11/20/20 11:36 [No Known Allergies*] Exam Exam Date and Time: October 06, 2021 0649 Pertinent Lab Results Pertinent Lab Results: Laboratory Tests 10/06/21 06:16 COVID-19 ([facility]) Negative COVID-19 Clin Com See Note Airway Mallampati Class: II TM Dist: >3cm Neck ROM: Full Loose/Missing/Broken Teeth: No Heart: RRR Lungs: CTA Assessment and Plan Final Anesthetic Review Family History of Problems with Anesthesia: No History of Problems with Anesthesia: No ASA Class: III Final Preanesthetic Review: No Changes in Pt Med Stat, Meds/Allgs Chart Reviewed, Consent Obtained/Reviewed and Anes Risks/Benef Reviewed Patient Risk: Low Procedure Risk: Low Anesthetic Plan Anesthetic Plan: GA Disposition: Standard PACU
--- NOTE | 2021-10-06 07:07 | MHC.SHP ---
Pre-Procedural Eval Section A Date of Service: 10/06/21 The patient is an INPATIENT: No Changes since office visit: Yes Patient answered all questions; No Cold of Flu in the past 2 weeks, No New Medical Problems and No Changes in Medication The History & Physical has been completed within 30 days and I have reviewed it.: Yes Section B Chief Complaint: depression Allergies: Allergies Allergy/AdvReac Type Severity Reaction Status Date / Time No Known Allergies Allergy Verified 11/20/20 11:36 [No Known Allergies*] Plan I have reviewed the history and physical and performed a pertinent physical examination on my patient. No changes have occurred unless specified.
--- NOTE | 2021-10-06 07:27 | HO.ECTPROC ---
ECT Procedure Note Diagnosis/Treatment Date of Service: 10/06/21 Diagnosis: Major Depressive Disorder Previous ECT Date: 10/03/21 Current Treatment Number: 5 Treatment: Series Interval Clinical Notes: remains flat anxious dysphoric ECT Settings Device: THYMATRON DGx Electrode Placement: Right Unilateral Program/Pulse Width: 0.50 Energy Percent: 20 Seizure Duration By EEG (in seconds): 41 Medications Administration General Anesthetic: Etomidate (12) Muscle Relaxant: Succinylcholine (80) Ancillary Medications Analgesics: Torodol - Pre ECT Anti-emetics: Zofran - Pre ECT Miscillaneous Medications: Propofol (30) Airway Management Airway Management: Bag Mask Ventilation Treatment Recommendations Notes: cont tx series was changed to pw 0.5 Pt Tolerated Procedure w/o Issue: Yes
--- NOTE | 2021-10-06 09:57 | HO.POSTANES ---
Post Anesthesia Evaluation Post Anesthesia Evaluation Vital Signs: Vital Signs Temp Pulse Resp BP Pulse Ox 10/06/21 08:17 97.4 F 72 10 L 180/89 H 99 10/06/21 08:02 97.6 F 73 12 181/93 H 98 10/06/21 07:47 97.8 F 74 13 174/96 H 99 10/06/21 07:42 73 14 168/91 H 99 10/06/21 07:37 70 13 167/89 H 100 10/06/21 07:32 97.7 F 96 16 167/87 H 98 10/06/21 07:04 96.9 F 69 18 154/78 H 99 Anesthesia: General Mental Status: Awake Pain Control: Satisfactory Nausea/Vomiting: None Hydration: Adequate Anesthesia-Related Issues: No Anes. Related Issues
== END 2021-10-06 08:47 | disposition home or self-care (01) ==
PROVIDERS: Visit Provider Psychiatry & Neurology Psychiatry
PROC: (CPT 90870; principal; 2021-10-06 08:00)
DX: F32.3 Major depressive disorder, single episode, severe with psychotic features (principal); F42.9 Obsessive-compulsive disorder, unspecified; Z20.822 Contact with and (suspected) exposure to COVID-19
CPT/HCPCS: 87635; 90870; J0330; J1885; J2405

== ENCOUNTER 2021-10-08 05:54 | Day surgery (SDC) | payer MEDICARE, BC, SELFPAY ==
[2021-10-08] VITALS (7 sets, daily range): BP systolic 147–165; BP diastolic 62–88; PULSE 76–83; RESP 11–16; TEMP 36.3–36.8; O2SAT 96–100; BMI 21.9
[2021-10-08 06:44] LABS: COVID-19 Test Negative (Negative)
--- NOTE | 2021-10-08 07:03 | P.CONAN_ITS ---
[facility] Active Problems Active Problems: All Active Problems (Updated 03/18/21 @ 00:02 by Mandy Mataallie) Major depressive disorder, recurrent severe without psychotic features (Acute) OCD (obsessive compulsive disorder) (Acute) Abnormal finding on EKG (Acute) Past Medical History Medical History Major depressive disorder, recurrent severe without psychotic features OCD (obsessive compulsive disorder) S/P ECT (electroconvulsive therapy) Family History Family History Mother CHF (congestive heart failure) Family history of problems with anesthesia: No Surgical History Surgical History No history of previous surgery History of Problems with Anesthesia: No Social History Social History Household Members: Spouse Housing: Condominium Do you presently have visiting nurse or other home services: No Patient Tobacco Use Status: Never used Tobacco Advance Directives: No Advance Directives Information Provided: Yes service: No Sexual orientation: Straight/Heterosexual Meds Allergies Allergy/AdvReac Type Severity Reaction Status Date / Time No Known Allergies Allergy Verified 11/20/20 11:36 [No Known Allergies*] Exam Exam Date and Time: October 08, 2021 0703 Height,Weight and Vital Signs: Height 5 ft 3 in Weight 56.245 kg Last Vital Signs Temp 97.4 F 10/08/21 06:33 Pulse 76 10/08/21 06:33 Resp 16 10/08/21 06:33 BP 148/81 H 10/08/21 06:33 Pulse Ox 99 10/08/21 06:33 Pertinent Lab Results Pertinent Lab Results: Laboratory Tests 10/08/21 06:10 COVID-19 ([facility]) Negative COVID-19 Clin Com See Note Airway Mallampati Class: II (Perm upper and lower bridge) TM Dist: >3cm Neck ROM: Full Heart: rrr Lungs: cta Assessment and Plan Assessment Anesthesia Assessment: Anesthesia Plan Discussed and Chart Reviewed Final Anesthetic Review Family History of Problems with Anesthesia: No History of Problems with Anesthesia: No NPO: Yes ASA Class: III Final Preanesthetic Review: No Changes in Pt Med Stat, Meds/Allgs Chart Reviewed and Consent Obtained/Reviewed Patient Risk: Intermediate Procedure Risk: Intermediate Anesthetic Plan Anesthetic Plan: GA Disposition: Standard PACU
--- NOTE | 2021-10-08 07:06 | MHC.SHP ---
Pre-Procedural Eval Section A Date of Service: 10/08/21 The patient is an INPATIENT: No Changes since office visit: Yes Patient answered all questions; No Cold of Flu in the past 2 weeks, No New Medical Problems and No Changes in Medication The History & Physical has been completed within 30 days and I have reviewed it.: Yes Section B Chief Complaint: depression Allergies: Allergies Allergy/AdvReac Type Severity Reaction Status Date / Time No Known Allergies Allergy Verified 11/20/20 11:36 [No Known Allergies*] Plan I have reviewed the history and physical and performed a pertinent physical examination on my patient. No changes have occurred unless specified.
--- NOTE | 2021-10-08 07:44 | HO.ECTPROC ---
ECT Procedure Note Diagnosis/Treatment Date of Service: 10/08/21 Diagnosis: Major Depressive Disorder Previous ECT Date: 10/06/21 Current Treatment Number: 6 Treatment: Series Interval Clinical Notes: remains depressed change to 0.5 pw ECT Settings Device: THYMATRON DGx Electrode Placement: Right Unilateral Program/Pulse Width: 0.50 Energy Percent: 25 Seizure Duration By EEG (in seconds): 45 Medications Administration General Anesthetic: Etomidate Muscle Relaxant: Succinylcholine Ancillary Medications Analgesics: Torodol - Pre ECT Miscillaneous Medications: Propofol Treatment Recommendations No Changes Recommended: No change Program/Pulse Width: 0.50 Notes: change to 0.5 pragram not responding to 0.5 cont ect series Pt Tolerated Procedure w/o Issue: Yes
[2021-10-08] MEDS: Lactated Ringers 1,000 ML 50 ML IVCONT (08:42)
== END 2021-10-08 09:01 | disposition home or self-care (01) ==
PROVIDERS: Visit Provider Psychiatry & Neurology Psychiatry
PROC: (CPT 90870; principal; 2021-10-08 07:00)
DX: F33.2 Major depressive disorder, recurrent severe without psychotic features (principal); F42.9 Obsessive-compulsive disorder, unspecified; Z20.822 Contact with and (suspected) exposure to COVID-19
CPT/HCPCS: 87635; 90870; J0330; J1885; J2405

== ENCOUNTER 2021-10-10 06:15 | Day surgery (SDC) | payer MEDICARE, BC, SELFPAY ==
[2021-10-10 06:25] VITALS: BMI 22.1
[2021-10-10 06:42] LABS: COVID-19 Test Negative (Negative)
--- NOTE | 2021-10-10 07:16 | HO.ANESPROP2 ---
HPI - Anesthesia Eval Consult details Narrative: For ECT [facility] Active Problems Active Problems: All Active Problems (Updated 03/18/21 @ 00:02 by Background Sandra) Major depressive disorder, recurrent severe without psychotic features (Acute) OCD (obsessive compulsive disorder) (Acute) Abnormal finding on EKG (Acute) Past Medical History Medical History Major depressive disorder, recurrent severe without psychotic features OCD (obsessive compulsive disorder) S/P ECT (electroconvulsive therapy) Family History Family History Mother CHF (congestive heart failure) Family history of problems with anesthesia: No Surgical History Surgical History No history of previous surgery History of Problems with Anesthesia: No Social History Social History Household Members: Spouse Housing: Condominium Do you presently have visiting nurse or other home services: No Patient Tobacco Use Status: Never used Tobacco Advance Directives: No Advance Directives Information Provided: Yes service: No Sexual orientation: Straight/Heterosexual Meds Allergies Allergy/AdvReac Type Severity Reaction Status Date / Time No Known Allergies Allergy Verified 11/20/20 11:36 [No Known Allergies*] Exam Exam Date and Time: October 10, 2021 0716 Height,Weight and Vital Signs: Height 5 ft 3 in Weight 56.699 kg Pertinent Lab Results Pertinent Lab Results: Laboratory Tests 10/10/21 06:18 COVID-19 ([facility]) Negative COVID-19 Clin Com See Note Airway Mallampati Class: I TM Dist: >3cm Neck ROM: Full Heart: ok Lungs: ok Assessment and Plan Final Anesthetic Review Family History of Problems with Anesthesia: No History of Problems with Anesthesia: No ASA Class: III Final Preanesthetic Review: No Changes in Pt Med Stat, Meds/Allgs Chart Reviewed, Consent Obtained/Reviewed and Anes Risks/Benef Reviewed Patient Risk: Intermediate Procedure Risk: Low Anesthetic Plan Anesthetic Plan: GA and Agree w/ Assess. and Plan Disposition: Standard PACU
--- NOTE | 2021-10-10 07:30 | MHC.SHP ---
Pre-Procedural Eval Section A Date of Service: 10/10/21 The patient is an INPATIENT: No Changes since office visit: No Cold of Flu in the past 2 weeks, No New Medical Problems, No Changes in Medication and No Patient answered all questions The History & Physical has been completed within 30 days and I have reviewed it.: Yes Section B Chief Complaint: depression Allergies: Allergies Allergy/AdvReac Type Severity Reaction Status Date / Time No Known Allergies Allergy Verified 11/20/20 11:36 [No Known Allergies*] Plan I have reviewed the history and physical and performed a pertinent physical examination on my patient. No changes have occurred unless specified.
--- NOTE | 2021-10-10 07:33 | HO.ECTPROC ---
ECT Procedure Note Diagnosis/Treatment Date of Service: 10/10/21 Diagnosis: Major Depressive Disorder Previous ECT Date: 10/08/21 Current Treatment Number: 7 Interval Clinical Notes: The patient reported improvement of dysphoria, no side effects with the last ECT that paremeters were changed. ECT Settings Device: THYMATRON DGx Electrode Placement: Right Unilateral Program/Pulse Width: 0.50 Energy Percent: 25 Seizure Duration By EEG (in seconds): 0 (but seizure activity until 41s) By Motor Observation (in seconds): 0 Medications Administration General Anesthetic: Etomidate (12) Muscle Relaxant: Succinylcholine (80) Ancillary Medications Anti-emetics: Zofran - Pre ECT Airway Management Airway Management: Bag Mask Ventilation Treatment Recommendations No Changes Recommended: No change Pt Tolerated Procedure w/o Issue: Yes
[2021-10-10 07:50] VITALS: BP 195/93; PULSE 85; RESP 16; TEMP 36.9; O2SAT 96
[2021-10-10 07:55] VITALS: BP 158/82; PULSE 88; RESP 16; O2SAT 93
[2021-10-10 08:00] VITALS: BP 125/97; PULSE 92; RESP 14; O2SAT 96
[2021-10-10 08:05] VITALS: BP 130/112; PULSE 87; RESP 15; TEMP 36.7; O2SAT 96
[2021-10-10 08:59] LABS: Cancel Lactic Acid Canceled
--- NOTE | 2021-10-10 09:11 | HO.POSTANES ---
Post Anesthesia Evaluation Post Anesthesia Evaluation Vital Signs: Vital Signs Temp Pulse Resp BP Pulse Ox 10/10/21 08:05 98.0 F 87 15 130/112 H 96 10/10/21 08:00 92 14 125/97 H 96 10/10/21 07:55 88 16 158/82 H 93 10/10/21 07:50 98.5 F 85 16 195/93 H 96 Anesthesia: General Mental Status: Awake Pain Control: Satisfactory Nausea/Vomiting: None Hydration: Adequate Anesthesia-Related Issues: No Anes. Related Issues
== END 2021-10-10 08:30 | disposition home or self-care (01) ==
PROVIDERS: Anesthesiology; Psychiatry & Neurology Psychiatry; Visit Provider Psychiatry & Neurology Psychiatry
PROC: (CPT 90870; principal; 2021-10-10 08:00)
DX: F33.2 Major depressive disorder, recurrent severe without psychotic features (principal); F42.9 Obsessive-compulsive disorder, unspecified; Z79.899 Other long term (current) drug therapy; Z20.822 Contact with and (suspected) exposure to COVID-19
CPT/HCPCS: 36415; 87635; 90870; J0330; J2405

== ENCOUNTER 2021-10-13 05:54 | Day surgery (SDC) | payer MEDICARE, BC, SELFPAY ==
[2021-10-13] VITALS (7 sets, daily range): BP systolic 157–180; BP diastolic 76–103; PULSE 70–80; RESP 12–16; TEMP 36.6; O2SAT 96–99; BMI 22.1
[2021-10-13 06:38] LABS: COVID-19 Test Negative (Negative); IDNOW Serial# 16C4AD1C
--- NOTE | 2021-10-13 06:46 | P.CONAN_ITS ---
[facility] Active Problems Active Problems: All Active Problems (Updated 03/18/21 @ 00:02 by Mandy Flores) Major depressive disorder, recurrent severe without psychotic features (Acute) OCD (obsessive compulsive disorder) (Acute) Abnormal finding on EKG (Acute) Past Medical History Medical History Major depressive disorder, recurrent severe without psychotic features OCD (obsessive compulsive disorder) S/P ECT (electroconvulsive therapy) Family History Family History Mother CHF (congestive heart failure) Family history of problems with anesthesia: No Surgical History Surgical History No history of previous surgery History of Problems with Anesthesia: No Social History Social History Household Members: Spouse Housing: Condominium Do you presently have visiting nurse or other home services: No Patient Tobacco Use Status: Never used Tobacco Advance Directives: No Advance Directives Information Provided: Yes service: No Sexual orientation: Straight/Heterosexual Meds Allergies Allergy/AdvReac Type Severity Reaction Status Date / Time No Known Allergies Allergy Verified 11/20/20 11:36 [No Known Allergies*] Exam Exam Date and Time: October 13, 2021 0646 Height,Weight and Vital Signs: Height 5 ft 3 in Weight 56.699 kg Pertinent Lab Results Pertinent Lab Results: Laboratory Tests 10/13/21 06:10 COVID-19 ([facility]) Negative COVID-19 Clin Com See Note Airway Mallampati Class: II TM Dist: >3cm Neck ROM: Full Heart: rrr Lungs: cta Assessment and Plan Assessment Anesthesia Assessment: Anesthesia Plan Discussed and Chart Reviewed Final Anesthetic Review Family History of Problems with Anesthesia: No History of Problems with Anesthesia: No NPO: Yes ASA Class: III Final Preanesthetic Review: No Changes in Pt Med Stat, Meds/Allgs Chart Reviewed and Consent Obtained/Reviewed Patient Risk: Intermediate Procedure Risk: Intermediate Anesthetic Plan Anesthetic Plan: GA Disposition: Standard PACU
--- NOTE | 2021-10-13 07:14 | MHC.SHP ---
Pre-Procedural Eval Section A Date of Service: 10/13/21 The patient is an INPATIENT: No Changes since office visit: Yes Cold of Flu in the past 2 weeks, Yes New Medical Problems, Yes Changes in Medication and Yes Patient answered all questions The History & Physical has been completed within 30 days and I have reviewed it.: Yes Section B Chief Complaint: depression Allergies: Allergies Allergy/AdvReac Type Severity Reaction Status Date / Time No Known Allergies Allergy Verified 11/20/20 11:36 [No Known Allergies*] Plan I have reviewed the history and physical and performed a pertinent physical examination on my patient. No changes have occurred unless specified.
--- NOTE | 2021-10-13 07:15 | HO.ECTPROC ---
ECT Procedure Note Diagnosis/Treatment Date of Service: 10/13/21 Diagnosis: Major Depressive Disorder Previous ECT Date: 10/10/21 Current Treatment Number: 7 Treatment: Series Interval Clinical Notes: The patient reports improvement of mood, her depression is better. No side effects witht the last 2 procedures. ECT Settings Device: THYMATRON DGx Electrode Placement: Right Unilateral Program/Pulse Width: 0.50 Energy Percent: 25 Seizure Duration By EEG (in seconds): 51 By Motor Observation (in seconds): 37 Medications Administration General Anesthetic: Etomidate (12) Muscle Relaxant: Succinylcholine (80) Ancillary Medications Analgesics: Torodol - Pre ECT Anti-emetics: Zofran - Pre ECT Miscillaneous Medications: Propofol Airway Management Airway Management: Bag Mask Ventilation Treatment Recommendations No Changes Recommended: No change Pt Tolerated Procedure w/o Issue: Yes
== END 2021-10-13 09:02 | disposition home or self-care (01) ==
PROVIDERS: Visit Provider Psychiatry & Neurology Psychiatry
PROC: (CPT 90870; principal; 2021-10-13 15:00)
DX: F32.3 Major depressive disorder, single episode, severe with psychotic features (principal); F42.9 Obsessive-compulsive disorder, unspecified; Z79.899 Other long term (current) drug therapy; Z20.822 Contact with and (suspected) exposure to COVID-19
CPT/HCPCS: 87635; 90870; J0330; J2405

== ENCOUNTER 2021-10-15 05:54 | Day surgery (SDC) | payer MEDICARE, BC, SELFPAY ==
[2021-10-15] VITALS (7 sets, daily range): BP systolic 152–181; BP diastolic 76–90; PULSE 79–90; RESP 14–18; TEMP 36.1–36.6; O2SAT 95–98; BMI 22.6
[2021-10-15 06:51] LABS: COVID-19 Test Negative (Negative); IDNOW Serial# 16C4AD1C
--- NOTE | 2021-10-15 06:53 | HO.ANESPROP2 ---
[facility] Active Problems Active Problems: All Active Problems (Updated 03/18/21 @ 00:02 by Mandy Mataallie) Major depressive disorder, recurrent severe without psychotic features (Acute) OCD (obsessive compulsive disorder) (Acute) Abnormal finding on EKG (Acute) Past Medical History Medical History Major depressive disorder, recurrent severe without psychotic features OCD (obsessive compulsive disorder) S/P ECT (electroconvulsive therapy) Family History Family History Mother CHF (congestive heart failure) Family history of problems with anesthesia: No Surgical History Surgical History No history of previous surgery History of Problems with Anesthesia: No Social History Social History Household Members: Spouse Housing: Condominium Do you presently have visiting nurse or other home services: No Patient Tobacco Use Status: Never used Tobacco Advance Directives: No Advance Directives Information Provided: Yes service: No Sexual orientation: Straight/Heterosexual Meds Allergies Allergy/AdvReac Type Severity Reaction Status Date / Time No Known Allergies Allergy Verified 11/20/20 11:36 [No Known Allergies*] Exam Exam Date and Time: October 15, 2021 0653 Height,Weight and Vital Signs: Height 5 ft 3 in Weight 58.06 kg Last Vital Signs Temp 97 F 10/15/21 06:42 Pulse 84 10/15/21 06:42 Resp 16 10/15/21 06:42 BP 152/84 H 10/15/21 06:42 Pulse Ox 98 10/15/21 06:42 Pertinent Lab Results Pertinent Lab Results: Laboratory Tests 10/15/21 06:20 COVID-19 ([facility]) Negative COVID-19 Clin Com See Note Airway Mallampati Class: II TM Dist: >3cm Neck ROM: Full Partial: Upper Heart: rrr Lungs: cta Assessment and Plan Assessment Anesthesia Assessment: Anesthesia Plan Discussed and Chart Reviewed Final Anesthetic Review Family History of Problems with Anesthesia: No History of Problems with Anesthesia: No NPO: Yes ASA Class: III Final Preanesthetic Review: No Changes in Pt Med Stat, Meds/Allgs Chart Reviewed and Consent Obtained/Reviewed Patient Risk: Intermediate Procedure Risk: Intermediate Anesthetic Plan Anesthetic Plan: GA Disposition: Standard PACU
--- NOTE | 2021-10-15 07:27 | MHC.SHP ---
Pre-Procedural Eval Section A Date of Service: 10/15/21 The patient is an INPATIENT: No Changes since office visit: Yes Changes in Medication and Yes Patient answered all questions; No Cold of Flu in the past 2 weeks and No New Medical Problems Section B Chief Complaint: depression Allergies: Allergies Allergy/AdvReac Type Severity Reaction Status Date / Time No Known Allergies Allergy Verified 11/20/20 11:36 [No Known Allergies*] Plan I have reviewed the history and physical and performed a pertinent physical examination on my patient. No changes have occurred unless specified.
--- NOTE | 2021-10-15 07:42 | HO.ECTPROC ---
ECT Procedure Note Diagnosis/Treatment Date of Service: 10/15/21 Diagnosis: Major Depressive Disorder Previous ECT Date: 10/13/21 Current Treatment Number: 8 Treatment: Series Interval Clinical Notes: pt remains anxious ruminating change to .5 pw ECT Settings Device: THYMATRON DGx Electrode Placement: Right Unilateral Program/Pulse Width: 0.50 Energy Percent: 25 Seizure Duration By EEG (in seconds): 27 Medications Administration General Anesthetic: Etomidate (12) Muscle Relaxant: Succinylcholine (80) Ancillary Medications Anti-emetics: Zofran - Pre ECT (4) Miscillaneous Medications: Propofol (30) Airway Management Airway Management: Bag Mask Ventilation Treatment Recommendations Energy Percent: 50 Pt Tolerated Procedure w/o Issue: Yes
== END 2021-10-15 08:47 | disposition home or self-care (01) ==
PROVIDERS: Visit Provider Psychiatry & Neurology Psychiatry
PROC: (CPT 90870; principal; 2021-10-15 15:00)
DX: F33.2 Major depressive disorder, recurrent severe without psychotic features (principal); F42.8 Other obsessive-compulsive disorder; Z20.822 Contact with and (suspected) exposure to COVID-19
CPT/HCPCS: 87635; 90870; J0330; J2405

== ENCOUNTER 2021-10-20 05:48 | Day surgery (SDC) | payer MEDICARE, BC, SELFPAY ==
[2021-10-20 06:42] VITALS: BP 149/85; PULSE 78; RESP 16; TEMP 36.3; O2SAT 98; BMI 22.1
[2021-10-20 06:46] LABS: IDNOW Serial# 16C4AD1C
[2021-10-20 06:47] LABS: COVID-19 Test Negative (Negative)
[2021-10-20 06:49] LABS: Hematocrit 44.4 % (37.0-47.0); Hemoglobin 14.7 g/dl (12.0-16.0); Mean Corpuscular HGB Conc 33.1 g/dl (31.0-35.0); Mean Corpuscular Hemoglobin 30.8 pg (27.0-33.0); Mean Corpuscular Volume 92.9 fL (80.0-98.0); Mean Platelet Volume 10.4 fL (9.4-12.3); Platelet Count 273 X10*3/uL (160-400); Red Blood Count 4.78 X10*6/uL (4.20-5.50); Red Cell Distribution Width 12.9 % (11.0-16.0); White Blood Count 5.2 X10*3/uL (4.8-10.8)
[2021-10-20 07:02] LABS: Anion Gap 13 (12-20); Blood Urea Nitrogen 20 mg/dL (9-16); Carbon Dioxide 26 mmol/L (22-29); Chloride 105 mmol/L (96-108); Creatinine Clr Calc Pharmacy 34.6; Estimated Glomerular Filt Rate 48; Sodium 140 mmol/L (135-145)
--- NOTE | 2021-10-20 07:15 | MHC.SHP ---
Pre-Procedural Eval Section A Date of Service: 10/20/21 The patient is an INPATIENT: No Changes since office visit: Yes Changes in Medication and Yes Patient answered all questions; No Cold of Flu in the past 2 weeks and No New Medical Problems The History & Physical has been completed within 30 days and I have reviewed it.: Yes Section B Chief Complaint: depression Allergies: Allergies Allergy/AdvReac Type Severity Reaction Status Date / Time No Known Allergies Allergy Verified 11/20/20 11:36 [No Known Allergies*] Plan I have reviewed the history and physical and performed a pertinent physical examination on my patient. No changes have occurred unless specified.
--- NOTE | 2021-10-20 07:29 | HO.ECTPROC ---
ECT Procedure Note Diagnosis/Treatment Date of Service: 10/20/21 Diagnosis: Major Depressive Disorder Previous ECT Date: 10/15/21 Current Treatment Number: 9 Treatment: Series ECT Settings Device: THYMATRON DGx Electrode Placement: Right Unilateral Program/Pulse Width: 0.25 Energy Percent: 40 Seizure Duration By EEG (in seconds): 56 Medications Administration General Anesthetic: Etomidate (12) Muscle Relaxant: Succinylcholine (80) Ancillary Medications Anti-emetics: Zofran - Pre ECT Airway Management Airway Management: Bag Mask Ventilation Treatment Recommendations No Changes Recommended: No change Notes: pt showing some improvement now on tamera Pt Tolerated Procedure w/o Issue: Yes
--- NOTE | 2021-10-20 07:36 | HO.ANESPROP2 ---
[facility] Active Problems Active Problems: All Active Problems (Updated 03/18/21 @ 00:02 by Mandy Flores) Major depressive disorder, recurrent severe without psychotic features (Acute) OCD (obsessive compulsive disorder) (Acute) Abnormal finding on EKG (Acute) Past Medical History Medical History Major depressive disorder, recurrent severe without psychotic features OCD (obsessive compulsive disorder) S/P ECT (electroconvulsive therapy) Family History Family History Mother CHF (congestive heart failure) Family history of problems with anesthesia: No Surgical History Surgical History No history of previous surgery History of Problems with Anesthesia: No Social History Social History Household Members: Spouse Housing: Condominium Do you presently have visiting nurse or other home services: No Patient Tobacco Use Status: Never used Tobacco Advance Directives: No Advance Directives Information Provided: Yes service: No Sexual orientation: Straight/Heterosexual Meds Allergies Allergy/AdvReac Type Severity Reaction Status Date / Time No Known Allergies Allergy Verified 11/20/20 11:36 [No Known Allergies*] Exam Exam Date and Time: October 20, 2021 0736 Height,Weight and Vital Signs: Height 5 ft 3 in Weight 56.699 kg Last Vital Signs Temp 97.3 F 10/20/21 06:42 Pulse 78 10/20/21 06:42 Resp 16 10/20/21 06:42 BP 149/85 H 10/20/21 06:42 Pulse Ox 98 10/20/21 06:42 Pertinent Lab Results Pertinent Lab Results: Laboratory Tests 10/20/21 10/20/21 10/20/21 06:18 06:35 06:35 WBC 5.2 RBC 4.78 Hgb 14.7 Hct 44.4 MCV 92.9 MCH 30.8 MCHC 33.1 RDW 12.9 Plt Count 273 MPV 10.4 Absolute Nucleated RBC 0.000 Nucleated RBC % (auto) 0.0 Sodium 140 Potassium 4.0 Chloride 105 Carbon Dioxide 26 Anion Gap 13 BUN 20 H Creatinine 1.09 Estim Creat Clear Calc 34.6 Estimated GFR 48 COVID-19 ([facility]) Negative COVID-19 Clin Com See Note Airway Mallampati Class: II TM Dist: >3cm Neck ROM: Full Loose/Missing/Broken Teeth: No Heart: RRR Lungs: CTA Assessment and Plan Assessment Anesthesia Assessment: Anesthesia Plan Discussed and Chart Reviewed Final Anesthetic Review Family History of Problems with Anesthesia: No History of Problems with Anesthesia: No ASA Class: II Final Preanesthetic Review: Meds/Allgs Chart Reviewed, Consent Obtained/Reviewed and Anes Risks/Benef Reviewed Patient Risk: Low Procedure Risk: Intermediate Anesthetic Plan Anesthetic Plan: GA Disposition: Standard PACU
[2021-10-20 07:49] VITALS: BP 179/86; PULSE 79; RESP 12; TEMP 36.3; O2SAT 100
[2021-10-20 07:54] VITALS: BP 155/77; PULSE 76; RESP 14; O2SAT 97
[2021-10-20 07:59] VITALS: BP 166/90; PULSE 74; RESP 13; O2SAT 97
[2021-10-20 08:04] VITALS: BP 167/94; PULSE 83; RESP 14; O2SAT 100
[2021-10-20 08:19] VITALS: BP 172/74; PULSE 80; RESP 16; TEMP 36.6; O2SAT 97
== END 2021-10-20 08:30 | disposition home or self-care (01) ==
PROVIDERS: Psychiatry & Neurology Psychiatry; Visit Provider Psychiatry & Neurology Psychiatry
PROC: (CPT 90870; principal; 2021-10-20 07:00)
DX: F33.2 Major depressive disorder, recurrent severe without psychotic features (principal); Z20.822 Contact with and (suspected) exposure to COVID-19
CPT/HCPCS: 36415; 80051; 82565; 84520; 85027; 87635; 90870; J0330; J2405

== ENCOUNTER 2021-10-27 05:55 | Day surgery (SDC) | payer MEDICARE, SELFPAY ==
[2021-10-27] VITALS (11 sets, daily range): BP systolic 147–167; BP diastolic 64–88; PULSE 72–85; RESP 12–84; TEMP 36.1–36.6; O2SAT 94–98; BMI 22.1
[2021-10-27 06:44] LABS: COVID-19 Test Negative (Negative)
--- NOTE | 2021-10-27 06:53 | P.CONAN_ITS ---
[facility] Active Problems Active Problems: All Active Problems (Updated 03/18/21 @ 00:02 by Mandy Mataallie) Major depressive disorder, recurrent severe without psychotic features (Acute) OCD (obsessive compulsive disorder) (Acute) Abnormal finding on EKG (Acute) Past Medical History Medical History Major depressive disorder, recurrent severe without psychotic features OCD (obsessive compulsive disorder) S/P ECT (electroconvulsive therapy) Family History Family History Mother CHF (congestive heart failure) Family history of problems with anesthesia: No Surgical History Surgical History No history of previous surgery History of Problems with Anesthesia: No Social History Social History Household Members: Spouse Housing: Condominium Do you presently have visiting nurse or other home services: No Patient Tobacco Use Status: Never used Tobacco Advance Directives: No Advance Directives Information Provided: Yes service: No Sexual orientation: Straight/Heterosexual Meds Allergies Allergy/AdvReac Type Severity Reaction Status Date / Time No Known Allergies Allergy Verified 11/20/20 11:36 [No Known Allergies*] Exam Exam Date and Time: October 27, 2021 0653 Height,Weight and Vital Signs: Height 5 ft 3 in Weight 56.699 kg Last Vital Signs Temp 97 F 10/27/21 06:35 Pulse 72 10/27/21 06:35 Resp 18 10/27/21 06:35 BP 151/86 H 10/27/21 06:35 Pulse Ox 98 10/27/21 06:35 Pertinent Lab Results Pertinent Lab Results: Laboratory Tests 10/27/21 06:13 COVID-19 ([facility]) Negative COVID-19 Clin Com See Note Airway Mallampati Class: II TM Dist: >3cm Neck ROM: Full Heart: rrr Lungs: cta Assessment and Plan Assessment Anesthesia Assessment: Anesthesia Plan Discussed and Chart Reviewed Final Anesthetic Review Family History of Problems with Anesthesia: No History of Problems with Anesthesia: No NPO: Yes ASA Class: III Final Preanesthetic Review: No Changes in Pt Med Stat, Meds/Allgs Chart Reviewed and Consent Obtained/Reviewed Patient Risk: Intermediate Procedure Risk: Intermediate Anesthetic Plan Anesthetic Plan: GA Disposition: Standard PACU
--- NOTE | 2021-10-27 07:45 | MHC.SHP ---
Pre-Procedural Eval Section A Date of Service: 10/27/21 The patient is an INPATIENT: No Changes since office visit: Yes Changes in Medication and Yes Patient answered all questions; No Cold of Flu in the past 2 weeks and No New Medical Problems Section B Chief Complaint: depression Details of Present Illness: recurrent depression Relevant Social History: None Present Medications: see Short Stay Collaborative assessment Medical History: Significant History (htn) History of Previous Operations: Relevant previous surgery/procedure and date(s) (ect) Allergies: Allergies Allergy/AdvReac Type Severity Reaction Status Date / Time No Known Allergies Allergy Verified 11/20/20 11:36 [No Known Allergies*] Review of Systems Sugical H&P ROS: Negative: Cardiovascular and Yes, Specify: Constitution (fatigue) and Psychiatric (anxiety depressive sx) Exam Surgical H&P Exam: Normal: Heart and Normal: Lungs Plan Diagnosis/Plan: Unchanged I have reviewed the history and physical and performed a pertinent physical examination on my patient. No changes have occurred unless specified.
--- NOTE | 2021-10-27 07:51 | MHC.SHP ---
Pre-Procedural Eval Section A Date of Service: 10/27/21 Changes since office visit: Yes Changes in Medication and Yes Patient answered all questions; No Cold of Flu in the past 2 weeks and No New Medical Problems The History & Physical has been completed within 30 days and I have reviewed it.: Yes Section B Chief Complaint: depression Allergies: Allergies Allergy/AdvReac Type Severity Reaction Status Date / Time No Known Allergies Allergy Verified 11/20/20 11:36 [No Known Allergies*] Plan I have reviewed the history and physical and performed a pertinent physical examination on my patient. No changes have occurred unless specified.
--- NOTE | 2021-10-27 08:05 | HO.ECTPROC ---
ECT Procedure Note Diagnosis/Treatment Date of Service: 10/27/21 Diagnosis: Major Depressive Disorder Previous ECT Date: 10/20/21 Current Treatment Number: 10 Treatment: Series Interval Clinical Notes: PT REMAINS DEPRESSED GUILT RIDDEN NOW ON ABILIFY 5 MG ECT Settings Device: THYMATRON DGx Electrode Placement: Bifrontal Program/Pulse Width: 0.50 Energy Percent: 75 Seizure Duration By EEG (in seconds): 65 Medications Administration General Anesthetic: Etomidate Muscle Relaxant: Succinylcholine Ancillary Medications Anti-emetics: Zofran - Pre ECT Miscillaneous Medications: Propofol Airway Management Airway Management: Bag Mask Ventilation Treatment Recommendations Notes: EVALUATE RESPONSE TO BIFRONTAL TX Pt Tolerated Procedure w/o Issue: Yes
== END 2021-10-27 09:43 | disposition home or self-care (01) ==
PROVIDERS: Visit Provider Psychiatry & Neurology Psychiatry
PROC: (CPT 90870; principal; 2021-10-27 11:30)
DX: F33.3 Major depressive disorder, recurrent, severe with psychotic symptoms (principal); Z79.899 Other long term (current) drug therapy; Z20.822 Contact with and (suspected) exposure to COVID-19
CPT/HCPCS: 87635; 90870; J0330; J2405

== ENCOUNTER 2021-10-29 05:55 | Day surgery (SDC) | payer MEDICARE, SELFPAY ==
[2021-10-29] VITALS (7 sets, daily range): BP systolic 117–156; BP diastolic 71–79; PULSE 69–79; RESP 14–18; TEMP 36.2–36.6; O2SAT 96–100; BMI 22.6
[2021-10-29 06:35] LABS: COVID-19 Test Negative (Negative); IDNOW Serial# 08D9AD1C
--- NOTE | 2021-10-29 07:29 | P.HPSUR_ITS ---
Pre-Procedural Eval Section A Date of Service: 10/29/21 Section B Chief Complaint: depression Details of Present Illness: recurrrent depression Relevant Family History (Specify if Yes): No Relevant Social History: None Present Medications: see Short Stay Collaborative assessment Medical History: No relevant PMH History of Previous Operations: No relevant previous surgery (ect) Allergies: Allergies Allergy/AdvReac Type Severity Reaction Status Date / Time No Known Allergies Allergy Verified 11/20/20 11:36 [No Known Allergies*] Review of Systems Sugical H&P ROS: Negative: Cardiovascular and Respiratory and Yes, Specify: Psy chiatric (impoved anxietyt) Exam Surgical H&P Exam: Normal: Heart and Normal: Lungs Plan Diagnosis/Plan: Unchanged I have reviewed the history and physical and performed a pertinent physical examination on my patient. No changes have occurred unless specified.
--- NOTE | 2021-10-29 07:43 | HO.ECTPROC ---
ECT Procedure Note Diagnosis/Treatment Date of Service: 10/29/21 Diagnosis: Major Depressive Disorder Previous ECT Date: 10/27/21 Current Treatment Number: 11 Treatment: Series Interval Clinical Notes: pt starting to feel somewhat improved ECT Settings Device: THYMATRON DGx Electrode Placement: Bifrontal Program/Pulse Width: 0.50 Energy Percent: 75 Seizure Duration By EEG (in seconds): 55 Medications Administration General Anesthetic: Etomidate Muscle Relaxant: Succinylcholine Ancillary Medications Anti-emetics: Zofran - Pre ECT Miscillaneous Medications: Propofol Airway Management Airway Management: Bag Mask Ventilation Treatment Recommendations No Changes Recommended: No change Notes: pt improving no cognitive side effects
--- NOTE | 2021-10-29 07:48 | P.CONAN_ITS ---
[facility] Active Problems Active Problems: All Active Problems (Updated 03/18/21 @ 00:02 by Mandy Yossioralallie) Major depressive disorder, recurrent severe without psychotic features (Acute) OCD (obsessive compulsive disorder) (Acute) Abnormal finding on EKG (Acute) Past Medical History Medical History Major depressive disorder, recurrent severe without psychotic features OCD (obsessive compulsive disorder) S/P ECT (electroconvulsive therapy) Family History Family History Mother CHF (congestive heart failure) Family history of problems with anesthesia: No Surgical History Surgical History No history of previous surgery History of Problems with Anesthesia: No Social History Social History Household Members: Spouse Housing: Condominium Do you presently have visiting nurse or other home services: No Patient Tobacco Use Status: Never used Tobacco Advance Directives: No Advance Directives Information Provided: Yes service: No Sexual orientation: Straight/Heterosexual Meds Allergies Allergy/AdvReac Type Severity Reaction Status Date / Time No Known Allergies Allergy Verified 11/20/20 11:36 [No Known Allergies*] Exam Exam Date and Time: October 29, 2021 0748 Height,Weight and Vital Signs: Height 5 ft 3 in Weight 58.06 kg Last Vital Signs Temp 97.2 F 10/29/21 06:26 Pulse 73 10/29/21 06:26 Resp 18 10/29/21 06:26 BP 147/78 H 10/29/21 06:26 Pulse Ox 100 10/29/21 06:26 Pertinent Lab Results Pertinent Lab Results: Laboratory Tests 10/29/21 06:12 COVID-19 ([facility]) Negative COVID-19 Clin Com See Note Airway Mallampati Class: II TM Dist: >3cm Neck ROM: Full Loose/Missing/Broken Teeth: No Heart: RRR Lungs: CTA Assessment and Plan Assessment Anesthesia Assessment: Anesthesia Plan Discussed and Chart Reviewed Final Anesthetic Review Family History of Problems with Anesthesia: No History of Problems with Anesthesia: No ASA Class: II Final Preanesthetic Review: Meds/Allgs Chart Reviewed, Consent Obtained/Reviewed and Anes Risks/Benef Reviewed Patient Risk: Low Procedure Risk: Intermediate Anesthetic Plan Anesthetic Plan: GA Disposition: Standard PACU
== END 2021-10-29 09:05 | disposition home or self-care (01) ==
PROVIDERS: Visit Provider Psychiatry & Neurology Psychiatry
PROC: (CPT 90870; principal; 2021-10-29 08:00)
DX: F33.2 Major depressive disorder, recurrent severe without psychotic features (principal); F42.9 Obsessive-compulsive disorder, unspecified; Z79.899 Other long term (current) drug therapy; Z20.822 Contact with and (suspected) exposure to COVID-19
CPT/HCPCS: 87635; 90870; J0330; J2405

== ENCOUNTER 2021-11-05 05:56 | Day surgery (SDC) | payer MEDICARE, BC, SELFPAY ==
[2021-11-05] VITALS (7 sets, daily range): BP systolic 145–186; BP diastolic 74–92; PULSE 68–81; RESP 12–18; TEMP 36.3–36.8; O2SAT 95–99; BMI 22.1
[2021-11-05 06:34] LABS: COVID-19 Test Negative (Negative)
--- NOTE | 2021-11-05 06:53 | MHC.SHP ---
Pre-Procedural Eval Section A Date of Service: 11/05/21 The patient is an INPATIENT: No Changes since office visit: Yes Changes in Medication and Yes Patient answered all questions; No Cold of Flu in the past 2 weeks and No New Medical Problems The History & Physical has been completed within 30 days and I have reviewed it.: Yes Section B Chief Complaint: depression Allergies: Allergies Allergy/AdvReac Type Severity Reaction Status Date / Time No Known Allergies Allergy Verified 11/20/20 11:36 [No Known Allergies*] Plan I have reviewed the history and physical and performed a pertinent physical examination on my patient. No changes have occurred unless specified.
--- NOTE | 2021-11-05 07:25 | HO.ECTPROC ---
ECT Procedure Note Diagnosis/Treatment Date of Service: 11/05/21 Diagnosis: Major Depressive Disorder Previous ECT Date: 10/29/21 Current Treatment Number: 12 Treatment: Series (continuation) ECT Settings Device: THYMATRON DGx Electrode Placement: Bifrontal Program/Pulse Width: 0.50 Energy Percent: 75 Seizure Duration By EEG (in seconds): 54 Medications Administration General Anesthetic: Etomidate (12) Muscle Relaxant: Succinylcholine (80) Ancillary Medications Anti-emetics: Zofran - Pre ECT Airway Management Airway Management: Bag Mask Ventilation Treatment Recommendations No Changes Recommended: No change Pt Tolerated Procedure w/o Issue: Yes
--- NOTE | 2021-11-05 08:14 | P.CONAN_ITS ---
[facility] Active Problems Active Problems: All Active Problems (Updated 03/18/21 @ 00:02 by Mandy Mataallie) Major depressive disorder, recurrent severe without psychotic features (Acute) OCD (obsessive compulsive disorder) (Acute) Abnormal finding on EKG (Acute) Past Medical History Medical History Major depressive disorder, recurrent severe without psychotic features OCD (obsessive compulsive disorder) S/P ECT (electroconvulsive therapy) Family History Family History Mother CHF (congestive heart failure) Family history of problems with anesthesia: No Surgical History Surgical History No history of previous surgery History of Problems with Anesthesia: No Social History Social History Household Members: Spouse Housing: Condominium Do you presently have visiting nurse or other home services: No Patient Tobacco Use Status: Never used Tobacco service: No Sexual orientation: Straight/Heterosexual Meds Allergies Allergy/AdvReac Type Severity Reaction Status Date / Time No Known Allergies Allergy Verified 11/20/20 11:36 [No Known Allergies*] Exam Exam Date and Time: November 05, 2021 0814 Height,Weight and Vital Signs: Height 5 ft 3 in Weight 56.699 kg Last Vital Signs Temp 97.8 F 11/05/21 07:59 Pulse 79 11/05/21 07:59 Resp 14 11/05/21 07:59 BP 168/85 H 11/05/21 07:59 Pulse Ox 97 11/05/21 07:59 Pertinent Lab Results Pertinent Lab Results: Laboratory Tests 11/05/21 06:12 COVID-19 ([facility]) Negative COVID-19 Clin Com See Note Airway Mallampati Class: II TM Dist: >3cm Neck ROM: Full Loose/Missing/Broken Teeth: No Heart: RRR Lungs: CTA Assessment and Plan Assessment Anesthesia Assessment: Anesthesia Plan Discussed and Chart Reviewed Final Anesthetic Review Family History of Problems with Anesthesia: No History of Problems with Anesthesia: No NPO: Yes ASA Class: II Final Preanesthetic Review: Meds/Allgs Chart Reviewed, Consent Obtained/Reviewed and Anes Risks/Benef Reviewed Patient Risk: Low Procedure Risk: Intermediate Anesthetic Plan Anesthetic Plan: GA Disposition: Standard PACU
== END 2021-11-05 08:49 | disposition home or self-care (01) ==
PROVIDERS: Visit Provider Psychiatry & Neurology Psychiatry
PROC: (CPT 90870; principal; 2021-11-05 08:00)
DX: F33.2 Major depressive disorder, recurrent severe without psychotic features (principal); F42.9 Obsessive-compulsive disorder, unspecified; Z79.899 Other long term (current) drug therapy; Z20.822 Contact with and (suspected) exposure to COVID-19
CPT/HCPCS: 87635; 90870; J0330; J2405

== ENCOUNTER 2021-11-12 05:53 | Day surgery (SDC) | payer MEDICARE, BC, SELFPAY ==
[2021-11-12 06:49] LABS: COVID-19 Test Negative (Negative); IDNOW Serial# 55D5AD1C
[2021-11-12 06:52] VITALS: BP 162/72; PULSE 68; RESP 15; TEMP 36.3; O2SAT 97; BMI 22.6
--- NOTE | 2021-11-12 06:59 | HO.ANESPROP2 ---
[facility] Active Problems Active Problems: All Active Problems (Updated 03/18/21 @ 00:02 by Mandy Yossioralallie) Major depressive disorder, recurrent severe without psychotic features (Acute) OCD (obsessive compulsive disorder) (Acute) Abnormal finding on EKG (Acute) Past Medical History Medical History Major depressive disorder, recurrent severe without psychotic features OCD (obsessive compulsive disorder) S/P ECT (electroconvulsive therapy) Family History Family History Mother CHF (congestive heart failure) Family history of problems with anesthesia: No Surgical History Surgical History No history of previous surgery History of Problems with Anesthesia: No Social History Social History Household Members: Spouse Housing: Condominium Do you presently have visiting nurse or other home services: No Patient Tobacco Use Status: Never used Tobacco Advance Directives: No Advance Directives Information Provided: Yes service: No Sexual orientation: Straight/Heterosexual Meds Allergies Allergy/AdvReac Type Severity Reaction Status Date / Time No Known Allergies Allergy Verified 11/20/20 11:36 [No Known Allergies*] Exam Exam Date and Time: November 12, 2021 0659 Height,Weight and Vital Signs: Height 5 ft 3 in Weight 58.06 kg Last Vital Signs Temp 97.4 F 11/12/21 06:52 Pulse 68 11/12/21 06:52 Resp 15 11/12/21 06:52 BP 162/72 H 11/12/21 06:52 Pulse Ox 97 11/12/21 06:52 Pertinent Lab Results Pertinent Lab Results: Laboratory Tests 11/12/21 06:10 COVID-19 ([facility]) Negative COVID-19 Clin Com See Note Airway Mallampati Class: II TM Dist: >3cm Neck ROM: Full Heart: rrr Lungs: cta Assessment and Plan Assessment Anesthesia Assessment: Anesthesia Plan Discussed and Chart Reviewed Final Anesthetic Review Family History of Problems with Anesthesia: No History of Problems with Anesthesia: No NPO: Yes ASA Class: III Final Preanesthetic Review: No Changes in Pt Med Stat, Meds/Allgs Chart Reviewed, Consent Obtained/Reviewed and Anes Risks/Benef Reviewed Patient Risk: Intermediate Procedure Risk: Intermediate Anesthetic Plan Anesthetic Plan: GA Disposition: Standard PACU
--- NOTE | 2021-11-12 07:28 | MHC.SHP ---
Pre-Procedural Eval Section A Date of Service: 11/12/21 Changes since office visit: Yes Changes in Medication and Yes Patient answered all questions; No Cold of Flu in the past 2 weeks and No New Medical Problems The History & Physical has been completed within 30 days and I have reviewed it.: Yes Section B Chief Complaint: depression Allergies: Allergies Allergy/AdvReac Type Severity Reaction Status Date / Time No Known Allergies Allergy Verified 11/20/20 11:36 [No Known Allergies*] Plan I have reviewed the history and physical and performed a pertinent physical examination on my patient. No changes have occurred unless specified.
--- NOTE | 2021-11-12 07:41 | HO.ECTPROC ---
ECT Procedure Note Diagnosis/Treatment Date of Service: 11/12/21 Diagnosis: Major Depressive Disorder Previous ECT Date: 11/05/21 Current Treatment Number: 13 Treatment: Maintenance Interval Clinical Notes: pt much improved no c/o significant side effect now on Abilify ECT Settings Device: THYMATRON DGx Electrode Placement: Bifrontal Program/Pulse Width: 0.50 Energy Percent: 100 Seizure Duration By EEG (in seconds): 51 Medications Administration General Anesthetic: Etomidate (12) Muscle Relaxant: Succinylcholine (80) Ancillary Medications Anti-emetics: Zofran - Pre ECT Miscillaneous Medications: Propofol Airway Management Airway Management: Bag Mask Ventilation Treatment Recommendations No Changes Recommended: No change Notes: f/u 2 weeks Pt Tolerated Procedure w/o Issue: Yes
[2021-11-12 07:46] VITALS: BP 149/80; PULSE 83; RESP 14; TEMP 36.4; O2SAT 100
[2021-11-12 07:51] VITALS: BP 153/83; PULSE 80; RESP 13; O2SAT 94
[2021-11-12 07:56] VITALS: BP 158/92; PULSE 83; RESP 15; O2SAT 94
[2021-11-12 08:06] VITALS: BP 160/84; PULSE 87; RESP 12; O2SAT 97
[2021-11-12 08:20] VITALS: BP 159/82; PULSE 76; RESP 14; O2SAT 96
== END 2021-11-12 10:46 | disposition home or self-care (01) ==
PROVIDERS: Visit Provider Psychiatry & Neurology Psychiatry
PROC: (CPT 90870; principal; 2021-11-12 07:00)
DX: F33.2 Major depressive disorder, recurrent severe without psychotic features (principal); F42.9 Obsessive-compulsive disorder, unspecified; Z79.899 Other long term (current) drug therapy; Z20.822 Contact with and (suspected) exposure to COVID-19
CPT/HCPCS: 87635; 90870; J0330; J2405

== ENCOUNTER 2021-11-26 06:05 | Day surgery (SDC) | payer MEDICARE, BC, SELFPAY ==
[2021-11-26] VITALS (7 sets, daily range): BP systolic 119–141; BP diastolic 69–86; PULSE 63–89; RESP 12–21; TEMP 36.1–36.3; O2SAT 94–98; BMI 23.0
[2021-11-26 06:46] LABS: COVID-19 Test Negative (Negative); IDNOW Serial# 9DB6401D
--- NOTE | 2021-11-26 07:05 | P.CONAN_ITS ---
[facility] Active Problems Active Problems: All Active Problems (Updated 03/18/21 @ 00:02 by Mandy Mataallie) Major depressive disorder, recurrent severe without psychotic features (Acute) OCD (obsessive compulsive disorder) (Acute) Abnormal finding on EKG (Acute) Past Medical History Medical History Major depressive disorder, recurrent severe without psychotic features OCD (obsessive compulsive disorder) S/P ECT (electroconvulsive therapy) Family History Family History Mother CHF (congestive heart failure) Family history of problems with anesthesia: No Surgical History Surgical History No history of previous surgery History of Problems with Anesthesia: No Social History Social History Household Members: Spouse Housing: Condominium Do you presently have visiting nurse or other home services: No Patient Tobacco Use Status: Never used Tobacco Advance Directives: No Advance Directives Information Provided: Yes service: No Sexual orientation: Straight/Heterosexual Meds Allergies Allergy/AdvReac Type Severity Reaction Status Date / Time No Known Allergies Allergy Verified 11/20/20 11:36 [No Known Allergies*] Exam Exam Date and Time: November 26, 2021 0705 Height,Weight and Vital Signs: Height 5 ft 3 in Weight 58.967 kg Last Vital Signs Temp 97.3 F 11/26/21 06:23 Pulse 63 11/26/21 06:23 Resp 16 11/26/21 06:23 BP 141/70 H 11/26/21 06:23 Pulse Ox 96 11/26/21 06:23 Pertinent Lab Results Pertinent Lab Results: Laboratory Tests 11/26/21 06:15 COVID-19 ([facility]) Negative COVID-19 Clin Com See Note Airway Mallampati Class: II TM Dist: >3cm Neck ROM: Full Heart: rrr Lungs: cta Assessment and Plan Assessment Anesthesia Assessment: Anesthesia Plan Discussed and Chart Reviewed Final Anesthetic Review Family History of Problems with Anesthesia: No History of Problems with Anesthesia: No NPO: Yes ASA Class: III Final Preanesthetic Review: No Changes in Pt Med Stat, Meds/Allgs Chart Reviewed and Consent Obtained/Reviewed Patient Risk: Intermediate Procedure Risk: Intermediate Anesthetic Plan Anesthetic Plan: GA Disposition: Standard PACU
--- NOTE | 2021-11-26 07:58 | MHC.SHP ---
Pre-Procedural Eval Section A Date of Service: 11/26/21 Section B Chief Complaint: depression Details of Present Illness: recurrent depression doing well Relevant Family History (Specify if Yes): No Relevant Social History: None Present Medications: see Short Stay Collaborative assessment Medical History: Significant History (ect) History of Previous Operations: No relevant previous surgery (ect long hx ) Allergies: Allergies Allergy/AdvReac Type Severity Reaction Status Date / Time No Known Allergies Allergy Verified 11/20/20 11:36 [No Known Allergies*] Review of Systems Sugical H&P ROS: Negative: Constitution, Cardiovascular, Respiratory, Neurological and Psychiatric Exam Surgical H&P Exam: Normal: HEENT, Normal: Heart (rr no murmur ) and Normal: Lungs (clear) Exam Comment: no complaints Plan Diagnosis/Plan: Unchanged I have reviewed the history and physical and performed a pertinent physical examination on my patient. No changes have occurred unless specified.
--- NOTE | 2021-11-26 08:01 | HO.ECTPROC ---
ECT Procedure Note Diagnosis/Treatment Date of Service: 11/26/21 Diagnosis: Major Depressive Disorder Previous ECT Date: 11/12/21 Current Treatment Number: 14 Treatment: Maintenance Interval Clinical Notes: pt stable much improved ECT Settings Device: THYMATRON DGx Electrode Placement: Right Unilateral Program/Pulse Width: 0.50 Energy Percent: 80 Seizure Duration By Motor Observation (in seconds): 63 Medications Administration General Anesthetic: Etomidate (12) Muscle Relaxant: Succinylcholine (80) Ancillary Medications Analgesics: Torodol - Pre ECT Anti-emetics: Zofran - Pre ECT Cardiovascular Medications: Labetolol (30) Airway Management Airway Management: Bag Mask Ventilation Treatment Recommendations Electrode Placement: Bifrontal Program/Pulse Width: 0.50 Energy Percent: 40 Notes: pt markedly improved change to q 3 week maintenance Pt Tolerated Procedure w/o Issue: Yes
== END 2021-11-26 09:45 | disposition home or self-care (01) ==
PROVIDERS: Visit Provider Psychiatry & Neurology Psychiatry
PROC: (CPT 90870; principal; 2021-11-26 07:00)
DX: F33.2 Major depressive disorder, recurrent severe without psychotic features (principal); F42.9 Obsessive-compulsive disorder, unspecified; Z79.899 Other long term (current) drug therapy; Z20.822 Contact with and (suspected) exposure to COVID-19
CPT/HCPCS: 87635; 90870; J0330; J2405

== ENCOUNTER 2021-12-17 12:59 | Day surgery (SDC) | payer MEDICARE, BC, SELFPAY ==
[2021-12-17] VITALS (8 sets, daily range): BP systolic 110–152; BP diastolic 66–95; PULSE 69–83; RESP 15–18; TEMP 36.1–37.3; O2SAT 94–100; BMI 22.3
--- NOTE | 2021-12-17 13:31 | HO.ANESPROP2 ---
HPI - Anesthesia Eval Consult details Narrative: 81 yo female patient for ECT PMFSH Active Problems Active Problems: All Active Problems (Updated 03/18/21 @ 00:02 by Mandy Flores) Major depressive disorder, recurrent severe without psychotic features (Acute) OCD (obsessive compulsive disorder) (Acute) Abnormal finding on EKG (Acute) Past Medical History Medical History Major depressive disorder, recurrent severe without psychotic features OCD (obsessive compulsive disorder) S/P ECT (electroconvulsive therapy) Family History Family History Mother CHF (congestive heart failure) Family history of problems with anesthesia: No Surgical History Surgical History No history of previous surgery History of Problems with Anesthesia: No Social History Social History Household Members: Spouse Housing: Condominium Do you presently have visiting nurse or other home services: No Patient Tobacco Use Status: Never used Tobacco Are you DNR?: No Advance Directives: No Advance Directives Information Provided: Yes service: No Sexual orientation: Straight/Heterosexual Meds Allergies Allergy/AdvReac Type Severity Reaction Status Date / Time No Known Allergies Allergy Verified 11/20/20 11:36 [No Known Allergies*] Exam Exam Date and Time: December 17, 2021 1331 Height,Weight and Vital Signs: Height 5 ft 4 in Weight 58.967 kg Last Vital Signs Temp 97.0 F 12/17/21 13:26 Pulse 69 12/17/21 13:26 Resp 16 12/17/21 13:26 BP 140/71 H 12/17/21 13:26 Pulse Ox 97 12/17/21 13:26 Airway Mallampati Class: II TM Dist: >3cm Neck ROM: Full Heart: RRR Lungs: CTAB Assessment and Plan Assessment Anesthesia Assessment: Anesthesia Plan Discussed and Chart Reviewed Final Anesthetic Review Family History of Problems with Anesthesia: No History of Problems with Anesthesia: No NPO: Yes ASA Class: II Final Preanesthetic Review: No Changes in Pt Med Stat, Meds/Allgs Chart Reviewed, Consent Obtained/Reviewed and Anes Risks/Benef Reviewed Patient Risk: Intermediate Procedure Risk: Intermediate Assessment/Block/Sedation in SS: Assess/Block/Sedation-SS Anesthetic Plan Anesthetic Plan: GA Disposition: Standard PACU
--- NOTE | 2021-12-17 14:34 | MHC.SHP ---
Pre-Procedural Eval Section A Date of Service: 12/17/21 The patient is an INPATIENT: No Changes since office visit: Yes Cold of Flu in the past 2 weeks, Yes New Medical Problems, Yes Changes in Medication and Yes Patient answered all questions The History & Physical has been completed within 30 days and I have reviewed it.: Yes Section B Chief Complaint: depression Allergies: Allergies Allergy/AdvReac Type Severity Reaction Status Date / Time No Known Allergies Allergy Verified 11/20/20 11:36 [No Known Allergies*] Plan I have reviewed the history and physical and performed a pertinent physical examination on my patient. No changes have occurred unless specified.
--- NOTE | 2021-12-17 14:34 | HO.ECTPROC ---
ECT Procedure Note Diagnosis/Treatment Date of Service: 12/17/21 Diagnosis: Major Depressive Disorder Previous ECT Date: 11/26/21 Current Treatment Number: 14 Treatment: Maintenance Interval Clinical Notes: The patient reported doing fine, no exacerbation of depression ECT Settings Device: THYMATRON DGx Electrode Placement: Right Unilateral Program/Pulse Width: 0.50 Energy Percent: 80 Seizure Duration By EEG (in seconds): 68 By Motor Observation (in seconds): 45 Medications Administration General Anesthetic: Etomidate (12) Muscle Relaxant: Succinylcholine (80) Ancillary Medications Analgesics: Torodol - Pre ECT Anti-emetics: Zofran - Pre ECT Airway Management Airway Management: Bag Mask Ventilation Treatment Recommendations No Changes Recommended: No change Pt Tolerated Procedure w/o Issue: Yes
== END 2021-12-17 16:14 | disposition home or self-care (01) ==
PROVIDERS: Visit Provider Psychiatry & Neurology Psychiatry
PROC: (CPT 90870; principal; 2021-12-17 08:00)
DX: F33.3 Major depressive disorder, recurrent, severe with psychotic symptoms (principal)
CPT/HCPCS: 90870; J0330; J2405

== ENCOUNTER 2022-01-14 05:52 | Day surgery (SDC) | payer MEDICARE, BC, SELFPAY ==
[2022-01-14] VITALS (8 sets, daily range): BP systolic 110–180; BP diastolic 54–109; PULSE 64–86; RESP 15–19; TEMP 36.2–36.8; O2SAT 96–100; BMI 23.0
[2022-01-14 06:40] LABS: COVID-19 Test Negative (Negative); IDNOW Serial# 16C4AD1C
--- NOTE | 2022-01-14 07:49 | MHC.SHP ---
Pre-Procedural Eval Section A Date of Service: 01/14/22 The patient is an INPATIENT: No Changes since office visit: No Cold of Flu in the past 2 weeks, No New Medical Problems, No Changes in Medication and No Patient answered all questions The History & Physical has been completed within 30 days and I have reviewed it.: Yes Section B Chief Complaint: depression Details of Present Illness: recurrent depreession doing well Relevant Social History: None Present Medications: see Short Stay Collaborative assessment Medical History: No relevant PMH History of Previous Operations: No relevant previous surgery (ect) Allergies: Allergies Allergy/AdvReac Type Severity Reaction Status Date / Time No Known Allergies Allergy Verified 11/20/20 11:36 [No Known Allergies*] Review of Systems Sugical H&P ROS: Negative: Constitution, Cardiovascular, Respiratory and Psychiatric Exam Surgical H&P Exam: Normal: Heart and Normal: Lungs Plan Diagnosis/Plan: Unchanged I have reviewed the history and physical and performed a pertinent physical examination on my patient. No changes have occurred unless specified.
--- NOTE | 2022-01-14 07:51 | HO.ECTPROC ---
ECT Procedure Note Diagnosis/Treatment Date of Service: 01/14/22 Diagnosis: Major Depressive Disorder Previous ECT Date: 12/17/21 Current Treatment Number: 15 Treatment: Maintenance Interval Clinical Notes: The patient has been stable future oriented full range of affect no delusional guilt is on Effexor Abilify mirtazapine. No reported cognitive difficulties from ECT Alert cooperative cognition appears intact ECT Settings Device: THYMATRON DGx Electrode Placement: Right Unilateral Program/Pulse Width: 0.50 Energy Percent: 50 Seizure Duration By EEG (in seconds): 63 Medications Administration General Anesthetic: Etomidate (12) Muscle Relaxant: Succinylcholine (80) Ancillary Medications Anti-emetics: Zofran - Pre ECT Airway Management Airway Management: Bag Mask Ventilation Treatment Recommendations No Changes Recommended: No change Notes: Will try and increase schedule to 5 weeks will try and see patient to discuss treatment option Pt Tolerated Procedure w/o Issue: Yes
== END 2022-01-14 09:46 | disposition home or self-care (01) ==
PROVIDERS: Visit Provider Psychiatry & Neurology Psychiatry
PROC: (CPT 90870; principal; 2022-01-14 07:00)
DX: F33.2 Major depressive disorder, recurrent severe without psychotic features (principal); Z79.899 Other long term (current) drug therapy; Z20.822 Contact with and (suspected) exposure to COVID-19
CPT/HCPCS: 87635; 90870; J0330; J2405

== ENCOUNTER 2022-02-25 05:50 | Day surgery (SDC) | payer MEDICARE, BC, SELFPAY ==
[2022-02-25 06:38] VITALS: BP 140/71; PULSE 59; RESP 16; TEMP 36.1; O2SAT 97; BMI 23.0
[2022-02-25 06:38] LABS: COVID-19 Test Negative (Negative)
--- NOTE | 2022-02-25 07:03 | P.CONAN_ITS ---
[facility] Active Problems Active Problems: All Active Problems (Updated 03/18/21 @ 00:02 by Mandy Flores) Major depressive disorder, recurrent severe without psychotic features (Acute) OCD (obsessive compulsive disorder) (Acute) Abnormal finding on EKG (Acute) Past Medical History Medical History Major depressive disorder, recurrent severe without psychotic features OCD (obsessive compulsive disorder) S/P ECT (electroconvulsive therapy) Functional capacity: independent ambulation Patient : No Family History Family History Mother CHF (congestive heart failure) Family history of problems with anesthesia: No Surgical History Surgical History No history of previous surgery History of Problems with Anesthesia: No Social History Social History Household Members: Spouse Housing: Condominium Do you presently have visiting nurse or other home services: No Patient Tobacco Use Status: Never used Tobacco Advance Directives: No Advance Directives Information Provided: Yes service: No Sexual orientation: Straight/Heterosexual Meds Allergies Allergy/AdvReac Type Severity Reaction Status Date / Time No Known Allergies Allergy Verified 11/20/20 11:36 [No Known Allergies*] Exam Exam Date and Time: February 25, 2022 0703 Height,Weight and Vital Signs: Height 5 ft 3 in Weight 58.967 kg Last Vital Signs Temp 97 F 02/25/22 06:38 Pulse 59 02/25/22 06:38 Resp 16 02/25/22 06:38 BP 140/71 H 02/25/22 06:38 Pulse Ox 97 02/25/22 06:38 O2 Del Method 02/25/22 06:38 Pertinent Lab Results Pertinent Lab Results: Laboratory Tests 02/25/22 06:09 COVID-19 ([facility]) Negative COVID-19 Clin Com See Note Airway Mallampati Class: II TM Dist: >3cm Neck ROM: Full Heart: RRR Lungs: CTA Assessment and Plan Final Anesthetic Review Family History of Problems with Anesthesia: No History of Problems with Anesthesia: No ASA Class: III Final Preanesthetic Review: No Changes in Pt Med Stat, Meds/Allgs Chart Reviewed, Consent Obtained/Reviewed and Anes Risks/Benef Reviewed Patient Risk: Low Procedure Risk: Low Anesthetic Plan Anesthetic Plan: GA Disposition: Standard PACU
--- NOTE | 2022-02-25 07:28 | MHC.SHP ---
Pre-Procedural Eval Section A Date of Service: 02/25/22 The patient is an INPATIENT: No Changes since office visit: Yes Patient answered all questions; No Cold of Flu in the past 2 weeks, No New Medical Problems and No Changes in Medication The History & Physical has been completed within 30 days and I have reviewed it.: No Section B Chief Complaint: depression Details of Present Illness: recurrent depression Relevant Family History (Specify if Yes): No Relevant Social History: None Present Medications: see Short Stay Collaborative assessment Medical History: No relevant PMH History of Previous Operations: Relevant previous surgery/procedure and date(s) (ect) Allergies: Allergies Allergy/AdvReac Type Severity Reaction Status Date / Time No Known Allergies Allergy Verified 11/20/20 11:36 [No Known Allergies*] Review of Systems Sugical H&P ROS: Negative: Constitution, Cardiovascular, Respiratory, Neurological and Psychiatric Exam Surgical H&P Exam: Normal: Heart and Normal: Lungs Plan Diagnosis/Plan: Unchanged I have reviewed the history and physical and performed a pertinent physical examination on my patient. No changes have occurred unless specified.
--- NOTE | 2022-02-25 07:30 | HO.ECTPROC ---
ECT Procedure Note Diagnosis/Treatment Date of Service: 02/25/22 Diagnosis: Major Depressive Disorder Previous ECT Date: 01/14/22 Current Treatment Number: 15 Treatment: Maintenance Interval Clinical Notes: The patient has been stable future oriented full range of affect no delusional guilt is on Effexor Abilify mirtazapine currently on hold No reported cognitive difficulties from ECT no breakthrough sx ECT Settings Device: THYMATRON DGx Electrode Placement: Right Unilateral Program/Pulse Width: 0.50 Energy Percent: 50 Seizure Duration By EEG (in seconds): 63 Medications Administration General Anesthetic: Etomidate (12) Muscle Relaxant: Succinylcholine (80) Ancillary Medications Anti-emetics: Zofran - Pre ECT Airway Management Airway Management: Bag Mask Ventilation Treatment Recommendations No Changes Recommended: No change Notes: schedule 5 - 6 weeks monitor for breakthrough Pt Tolerated Procedure w/o Issue: Yes
[2022-02-25 07:45] VITALS: BP 159/82; PULSE 70; RESP 16; TEMP 36.4; O2SAT 100
[2022-02-25 07:53] VITALS: BP 141/79; PULSE 73; RESP 13; O2SAT 94
[2022-02-25 08:00] VITALS: BP 148/85; PULSE 71; RESP 16; O2SAT 99
[2022-02-25 08:15] VITALS: BP 143/76; PULSE 68; RESP 14; O2SAT 97
[2022-02-25 08:30] VITALS: BP 142/69; PULSE 64; RESP 16; TEMP 36.4; O2SAT 96
--- NOTE | 2022-02-25 08:39 | HO.POSTANES ---
Post Anesthesia Evaluation Post Anesthesia Evaluation Vital Signs: Vital Signs Temp Pulse Resp BP Pulse Ox O2 Del Method O2 Flow Rate 02/25/22 08:15 68 14 143/76 H 97 Nasal Cannula 2 02/25/22 08:00 71 16 148/85 H 99 Nasal Cannula 3 02/25/22 07:53 73 13 141/79 H 94 Nasal Cannula 3 02/25/22 07:45 97.5 F 70 16 159/82 H 100 Nasal Cannula 02/25/22 06:38 97 F 59 16 140/71 H 97 Room Air Anesthesia: General Mental Status: Awake and Sedated Pain Control: Satisfactory Nausea/Vomiting: None Hydration: Adequate Anesthesia-Related Issues: No Anes. Related Issues
== END 2022-02-25 09:03 | disposition home or self-care (01) ==
PROVIDERS: Visit Provider Psychiatry & Neurology Psychiatry
PROC: (CPT 90870; principal; 2022-02-25 07:00)
DX: F33.2 Major depressive disorder, recurrent severe without psychotic features (principal); F42.9 Obsessive-compulsive disorder, unspecified; Z79.899 Other long term (current) drug therapy; Z20.822 Contact with and (suspected) exposure to COVID-19
CPT/HCPCS: 87635; 90870; J0330; J2405

== ENCOUNTER 2022-05-08 08:00 | Day surgery (SDC) | payer MEDICARE, BC, SELFPAY ==
[2022-05-08] VITALS (8 sets, daily range): BP systolic 114–143; BP diastolic 70–84; PULSE 18–88; RESP 12–18; TEMP 36.1–36.7; O2SAT 91–99; BMI 21.4
[2022-05-08 08:37] LABS: COVID-19 Test Negative (Negative); IDNOW Serial# 9DB6401D
--- NOTE | 2022-05-08 08:44 | HO.ANESPROP2 ---
[facility] Active Problems Active Problems: All Active Problems (Updated 03/18/21 @ 00:02 by Mandy Mataallie) Major depressive disorder, recurrent severe without psychotic features (Acute) OCD (obsessive compulsive disorder) (Acute) Abnormal finding on EKG (Acute) Past Medical History Medical History Major depressive disorder, recurrent severe without psychotic features OCD (obsessive compulsive disorder) S/P ECT (electroconvulsive therapy) Family History Family History Mother CHF (congestive heart failure) Family history of problems with anesthesia: No Surgical History Surgical History No history of previous surgery History of Problems with Anesthesia: No Social History Social History Household Members: Spouse Housing: Condominium Do you presently have visiting nurse or other home services: No Patient Tobacco Use Status: Never used Tobacco Advance Directives: No Advance Directives Information Provided: Yes service: No Sexual orientation: Straight/Heterosexual Meds Allergies Allergy/AdvReac Type Severity Reaction Status Date / Time No Known Allergies Allergy Verified 11/20/20 11:36 [No Known Allergies*] Exam Exam Date and Time: May 08, 2022 0844 Pertinent Lab Results Pertinent Lab Results: Laboratory Tests 05/08/22 08:04 COVID-19 ([facility]) Negative COVID-19 Clin Com See Note Airway Mallampati Class: II (Caps laterally) TM Dist: >3cm Neck ROM: Full Heart: rrr Lungs: cta Assessment and Plan Assessment Anesthesia Assessment: Anesthesia Plan Discussed and Chart Reviewed Final Anesthetic Review Family History of Problems with Anesthesia: No History of Problems with Anesthesia: No NPO: Yes ASA Class: III Final Preanesthetic Review: No Changes in Pt Med Stat, Meds/Allgs Chart Reviewed and Consent Obtained/Reviewed Patient Risk: Intermediate Procedure Risk: Intermediate Anesthetic Plan Anesthetic Plan: GA Disposition: Standard PACU
--- NOTE | 2022-05-08 09:37 | MHC.SHP ---
Pre-Procedural Eval Section A Date of Service: 05/08/22 Changes since office visit: Yes New Medical Problems and Yes Patient answered all questions; No Cold of Flu in the past 2 weeks and No Changes in Medication The History & Physical has been completed within 30 days and I have reviewed it.: Yes Section B Chief Complaint: depression Allergies: Allergies Allergy/AdvReac Type Severity Reaction Status Date / Time No Known Allergies Allergy Verified 11/20/20 11:36 [No Known Allergies*] Plan I have reviewed the history and physical and performed a pertinent physical examination on my patient. No changes have occurred unless specified.
--- NOTE | 2022-05-08 09:40 | HO.ECTPROC ---
ECT Procedure Note Diagnosis/Treatment Date of Service: 05/08/22 Diagnosis: Major Depressive Disorder Previous ECT Date: 01/14/22 Current Treatment Number: Other (16) Treatment: Maintenance Interval Clinical Notes: The patient has been stable future oriented full range of affect no breakthrough has been ok x 8 wks ECT Settings Device: THYMATRON DGx Electrode Placement: Right Unilateral Program/Pulse Width: 0.50 Energy Percent: 50 Seizure Duration By EEG (in seconds): 86 Medications Administration General Anesthetic: Etomidate (12) Muscle Relaxant: Succinylcholine (80) Ancillary Medications Anti-emetics: Zofran - Pre ECT Miscillaneous Medications: Propofol Airway Management Airway Management: Bag Mask Ventilation Treatment Recommendations No Changes Recommended: No change Notes: schedule 8 weeks monitor for breakthrough had post op delerium transient decrease dose next tx Pt Tolerated Procedure w/o Issue: Yes
== END 2022-05-08 11:25 | disposition home or self-care (01) ==
PROVIDERS: Visit Provider Psychiatry & Neurology Psychiatry
PROC: (CPT 90870; principal; 2022-05-08 09:00)
DX: F33.3 Major depressive disorder, recurrent, severe with psychotic symptoms (principal); Z79.899 Other long term (current) drug therapy; Z20.822 Contact with and (suspected) exposure to COVID-19
CPT/HCPCS: 87635; 90870; J0330; J2405

== ENCOUNTER 2022-07-03 08:30 | Day surgery (SDC) | payer MEDICARE, BC, SELFPAY ==
[2022-07-03 09:08] VITALS: BP 137/78; PULSE 69; RESP 16; TEMP 36.9; O2SAT 97; BMI 23.9
[2022-07-03 09:21] LABS: Hematocrit 42.9 % (37.0-47.0); Hemoglobin 14.3 g/dl (12.0-16.0); Mean Corpuscular HGB Conc 33.3 g/dl (31.0-35.0); Mean Corpuscular Hemoglobin 29.7 pg (27.0-33.0); Mean Platelet Volume 11.4 fL (9.4-12.3); Platelet Count 202 X10*3/uL (160-400); Red Blood Count 4.82 X10*6/uL (4.20-5.50); Red Cell Distribution Width 12.3 % (11.0-16.0)
--- NOTE | 2022-07-03 09:31 | MHC.SHP ---
Pre-Procedural Eval Section A Date of Service: 07/03/22 Changes since office visit: Yes New Medical Problems and Yes Patient answered all questions; No Cold of Flu in the past 2 weeks and No Changes in Medication Section B Chief Complaint: Major depressive disorder, recurrent, severe with Details of Present Illness: stable hx recurrent depression Relevant Family History (Specify if Yes): No Relevant Social History: None Present Medications: see Short Stay Collaborative assessment Medical History: Significant History (ect) Allergies: Allergies Allergy/AdvReac Type Severity Reaction Status Date / Time No Known Allergies Allergy Verified 11/20/20 11:36 [No Known Allergies*] Review of Systems Sugical H&P ROS: Negative: Constitution, Cardiovascular and Respiratory and Yes, Specify: Musculoskeletal (shoulder pain ) Exam Surgical H&P Exam: Normal: Neurological Plan Diagnosis/Plan: Unchanged I have reviewed the history and physical and performed a pertinent physical examination on my patient. No changes have occurred unless specified. Time Spent With Patient Time: Total time managing care of this patient today __10__ minutes.pre ect
[2022-07-03 09:36] LABS: Anion Gap 13 (12-20); Blood Urea Nitrogen 18 mg/dL (9-16); Calcium 9.2 mg/dL (8.4-10.2); Carbon Dioxide 25 mmol/L (22-29); Chloride 105 mmol/L (96-108); Estimated Glomerular Filt Rate 48; Glucose Fasting 96 mg/dL (60-99); Potassium 4.4 mmol/L (3.3-5.1); Sodium 139 mmol/L (135-145)
[2022-07-03 09:39] LABS: COVID-19 Test Negative (Negative); IDNOW Serial# 16C4AD1C
--- NOTE | 2022-07-03 09:43 | HO.ANESPROP2 ---
[facility], [facility] Active Problems Active Problems: All Active Problems (Updated 03/18/21 @ 00:02 by Mandy Flores) Major depressive disorder, recurrent severe without psychotic features (Acute) OCD (obsessive compulsive disorder) (Acute) Abnormal finding on EKG (Acute) Past Medical History Medical History Major depressive disorder, recurrent severe without psychotic features OCD (obsessive compulsive disorder) S/P ECT (electroconvulsive therapy) Family History Family History Mother CHF (congestive heart failure) Family history of problems with anesthesia: No Surgical History Surgical History No history of previous surgery History of Problems with Anesthesia: No Social History Social History Household Members: Spouse Housing: Condominium Do you presently have visiting nurse or other home services: No Patient Tobacco Use Status: Never used Tobacco Are you DNR?: No Advance Directives: No Advance Directives Information Provided: Yes service: No Sexual orientation: Straight/Heterosexual Meds Allergies Allergy/AdvReac Type Severity Reaction Status Date / Time No Known Allergies Allergy Verified 11/20/20 11:36 [No Known Allergies*] Exam Exam Date and Time: July 03, 2022 0943 Height,Weight and Vital Signs: Height 5 ft 3 in Weight 61.235 kg Last Vital Signs Temp 98.4 F 07/03/22 09:08 Pulse 69 07/03/22 09:08 Resp 16 07/03/22 09:08 BP 137/78 07/03/22 09:08 Pulse Ox 97 07/03/22 09:08 O2 Del Method 07/03/22 09:08 Pertinent Lab Results Pertinent Lab Results: Laboratory Tests 07/03/22 07/03/22 07/03/22 08:53 08:53 09:15 WBC 5.0 RBC 4.82 Hgb 14.3 Hct 42.9 MCV 89.0 MCH 29.7 MCHC 33.3 RDW 12.3 Plt Count 202 D MPV 11.4 Absolute Nucleated RBC 0.000 Nucleated RBC % (auto) 0.0 Sodium 139 Potassium 4.4 Chloride 105 Carbon Dioxide 25 Anion Gap 13 BUN 18 H Creatinine 1.09 Estim Creat Clear Calc 34.0 Estimated GFR 48 Fasting Glucose 96 Calcium 9.2 COVID-19 ([facility]) Negative COVID-19 Clin Com See Note Airway Mallampati Class: II (Multiple caps lateral) TM Dist: >3cm Neck ROM: Full Heart: rrr Lungs: cta Assessment and Plan Assessment Anesthesia Assessment: Anesthesia Plan Discussed and Chart Reviewed Final Anesthetic Review Family History of Problems with Anesthesia: No History of Problems with Anesthesia: No NPO: Yes ASA Class: III Final Preanesthetic Review: No Changes in Pt Med Stat, Meds/Allgs Chart Reviewed and Consent Obtained/Reviewed Patient Risk: Intermediate Procedure Risk: Intermediate Anesthetic Plan Anesthetic Plan: GA Disposition: Standard PACU
--- NOTE | 2022-07-03 09:56 | HO.ECTPROC ---
ECT Procedure Note Diagnosis/Treatment Date of Service: 07/03/22 Diagnosis: Major Depressive Disorder Previous ECT Date: 05/08/22 Current Treatment Number: Other (16) Treatment: Maintenance Interval Clinical Notes: pt has been stable doing well Time: Total time managing care of this patient today ____ minutes. ECT Settings Device: THYMATRON DGx Electrode Placement: Right Unilateral Program/Pulse Width: 0.50 Energy Percent: 50 Seizure Duration By EEG (in seconds): 76 Medications Administration General Anesthetic: Etomidate (12) Muscle Relaxant: Succinylcholine (80) Ancillary Medications Anti-emetics: Zofran - Pre ECT Miscillaneous Medications: Propofol Airway Management Airway Management: Bag Mask Ventilation Treatment Recommendations No Changes Recommended: No change Notes: schedule 8 weeks on late start day Pt Tolerated Procedure w/o Issue: Yes
[2022-07-03 10:00] VITALS: BP 151/81; PULSE 76; RESP 14; TEMP 36.4; O2SAT 92
[2022-07-03 10:05] VITALS: BP 135/80; PULSE 81; RESP 12; O2SAT 93
[2022-07-03 10:10] VITALS: BP 136/97; PULSE 86; RESP 12; O2SAT 95
[2022-07-03 10:15] VITALS: BP 134/89; PULSE 92; RESP 13; O2SAT 92
[2022-07-03 10:30] VITALS: BP 121/70; PULSE 85; RESP 16; O2SAT 94
== END 2022-07-03 11:09 | disposition home or self-care (01) ==
PROVIDERS: Nurse Practitioner; PCP Family Medicine; Visit Provider Psychiatry & Neurology Psychiatry
PROC: (CPT 90870; principal; 2022-07-03 10:00)
DX: F33.2 Major depressive disorder, recurrent severe without psychotic features (principal); F42.9 Obsessive-compulsive disorder, unspecified; Z20.822 Contact with and (suspected) exposure to COVID-19
CPT/HCPCS: 36415; 80048; 85027; 87635; 90870; J0330; J2405

== ENCOUNTER 2022-09-04 07:55 | Day surgery (SDC) | payer MEDICARE, SELFPAY ==
[2022-09-04] VITALS (7 sets, daily range): BP systolic 130–154; BP diastolic 73–88; PULSE 72–91; RESP 14–18; TEMP 36.6–36.9; O2SAT 96–100; BMI 23.0
--- NOTE | 2022-09-04 08:45 | HO.ANESPROP2 ---
[facility] Active Problems Active Problems: All Active Problems (Updated 03/18/21 @ 00:02 by Mandy Mataallie) Major depressive disorder, recurrent severe without psychotic features (Acute) OCD (obsessive compulsive disorder) (Acute) Abnormal finding on EKG (Acute) Past Medical History Medical History Major depressive disorder, recurrent severe without psychotic features OCD (obsessive compulsive disorder) S/P ECT (electroconvulsive therapy) Family History Family History Mother CHF (congestive heart failure) Family history of problems with anesthesia: No Surgical History Surgical History No history of previous surgery History of Problems with Anesthesia: No Social History Social History Household Members: Spouse Housing: Condominium Do you presently have visiting nurse or other home services: No Patient Tobacco Use Status: Never used Tobacco Advance Directives: No Advance Directives Information Provided: Yes service: No Sexual orientation: Straight/Heterosexual Meds Allergies Allergy/AdvReac Type Severity Reaction Status Date / Time No Known Allergies Allergy Verified 11/20/20 11:36 [No Known Allergies*] Exam Exam Date and Time: September 04, 2022 0845 Height,Weight and Vital Signs: Height 5 ft 3 in Weight 58.967 kg Last Vital Signs Temp 97.9 F 09/04/22 08:37 Pulse 72 09/04/22 08:37 Resp 18 09/04/22 08:37 BP 139/79 09/04/22 08:37 Pulse Ox 100 09/04/22 08:37 O2 Del Method 09/04/22 08:37 Airway Mallampati Class: II (Permanent bridge) TM Dist: >3cm Neck ROM: Full Heart: rrr Lungs: cta Assessment and Plan Assessment Anesthesia Assessment: Anesthesia Plan Discussed and Chart Reviewed Final Anesthetic Review Family History of Problems with Anesthesia: No History of Problems with Anesthesia: No NPO: Yes ASA Class: III Final Preanesthetic Review: No Changes in Pt Med Stat, Meds/Allgs Chart Reviewed and Consent Obtained/Reviewed Patient Risk: Intermediate Procedure Risk: Intermediate Anesthetic Plan Anesthetic Plan: GA Disposition: Standard PACU
[2022-09-04 08:53] LABS: COVID-19 Test Negative (Negative); IDNOW Serial# 55D5AD1C
--- NOTE | 2022-09-04 21:38 | HO.ECTPROC ---
ECT Procedure Note Diagnosis/Treatment Date of Service: 09/04/22 Diagnosis: Major Depressive Disorder Previous ECT Date: 07/03/22 Current Treatment Number: Other (16) Treatment: Maintenance Interval Clinical Notes: pt has had some recent depressive symptoms related to and recurrence questionably of prostate cancer Time: Total time managing care of this patient today ____ minutes. ECT Settings Device: THYMATRON DGx Electrode Placement: Right Unilateral Program/Pulse Width: 0.50 Energy Percent: 50 Seizure Duration By EEG (in seconds): 68 Medications Administration General Anesthetic: Etomidate (12) Muscle Relaxant: Succinylcholine (80) Ancillary Medications Anti-emetics: Zofran - Pre ECT Miscillaneous Medications: Propofol Airway Management Airway Management: Bag Mask Ventilation Treatment Recommendations No Changes Recommended: No change Notes: schedule 4 weeks on late start day patient call if relapse symptoms sooner Patient under increased stress with diagnosed with metastatic prostate cancer at this point 1 area noted on PET scan Patient generally does better when preventing relapse Pt Tolerated Procedure w/o Issue: Yes
== END 2022-09-04 11:05 | disposition home or self-care (01) ==
PROVIDERS: PCP Family Medicine; Visit Provider Psychiatry & Neurology Psychiatry
PROC: (CPT 90870; principal; 2022-09-04 09:00)
DX: F33.2 Major depressive disorder, recurrent severe without psychotic features (principal); F42.9 Obsessive-compulsive disorder, unspecified; Z79.899 Other long term (current) drug therapy; Z20.822 Contact with and (suspected) exposure to COVID-19
CPT/HCPCS: 87635; 90870; J0330; J2405

== ENCOUNTER 2022-10-02 07:47 | Day surgery (SDC) | payer MEDICARE, BC, SELFPAY ==
[2022-10-02 08:27] VITALS: BP 134/70; PULSE 69; RESP 16; TEMP 36.4; O2SAT 97; BMI 23.9
[2022-10-02 08:38] LABS: COVID-19 Test Negative (Negative); IDNOW Serial# 9DB6401D
--- NOTE | 2022-10-02 08:41 | HO.ANESPROP2 ---
[facility] Active Problems Active Problems: All Active Problems (Updated 03/18/21 @ 00:02 by Mnady Flores) Major depressive disorder, recurrent severe without psychotic features (Acute) OCD (obsessive compulsive disorder) (Acute) Abnormal finding on EKG (Acute) Past Medical History Medical History Major depressive disorder, recurrent severe without psychotic features OCD (obsessive compulsive disorder) S/P ECT (electroconvulsive therapy) Family History Family History Mother CHF (congestive heart failure) Family history of problems with anesthesia: No Surgical History Surgical History No history of previous surgery History of Problems with Anesthesia: No Social History Social History Household Members: Spouse Housing: Condominium Do you presently have visiting nurse or other home services: No Patient Tobacco Use Status: Never used Tobacco Advance Directives: No Advance Directives Information Provided: Yes service: No Sexual orientation: Straight/Heterosexual Meds Allergies Allergy/AdvReac Type Severity Reaction Status Date / Time No Known Allergies Allergy Verified 11/20/20 11:36 [No Known Allergies*] Active Medications: Current Medications Lactated Ringer's (Lr) 1,000 mls @ 50 mls/hr IVCONT .Q20H DENISSE Exam Exam Date and Time: October 02, 2022 0841 Height,Weight and Vital Signs: Height 5 ft 3 in Weight 61.235 kg Last Vital Signs Temp 97.5 F 10/02/22 08:27 Pulse 69 10/02/22 08:27 Resp 16 10/02/22 08:27 BP 134/70 10/02/22 08:27 Pulse Ox 97 10/02/22 08:27 O2 Del Method 10/02/22 08:27 Pertinent Lab Results Pertinent Lab Results: Laboratory Tests 10/02/22 08:09 COVID-19 ([facility]) Negative COVID-19 Clin Com See Note Airway Mallampati Class: II TM Dist: >3cm Neck ROM: Full Heart: rrr Lungs: cta Assessment and Plan Assessment Anesthesia Assessment: Anesthesia Plan Discussed and Chart Reviewed Final Anesthetic Review Family History of Problems with Anesthesia: No History of Problems with Anesthesia: No NPO: Yes ASA Class: III Final Preanesthetic Review: No Changes in Pt Med Stat, Meds/Allgs Chart Reviewed and Consent Obtained/Reviewed Patient Risk: Intermediate Procedure Risk: Intermediate Anesthetic Plan Anesthetic Plan: GA Disposition: Standard PACU
--- NOTE | 2022-10-02 09:43 | MHC.SHP ---
Pre-Procedural Eval Section A Date of Service: 10/02/22 Section B Chief Complaint: Major depressive disorder, recurrent, severe with Details of Present Illness: doing better no acute med problems Relevant Social History: None Medical History: Significant History (depression) Allergies: Allergies Allergy/AdvReac Type Severity Reaction Status Date / Time No Known Allergies Allergy Verified 11/20/20 11:36 [No Known Allergies*] Review of Systems Sugical H&P ROS: Negative: Constitution, Cardiovascular, Respiratory, Neurological and Psychiatric Exam Surgical H&P Exam: Normal: Heart and Normal: Lungs (clear) Plan Diagnosis/Plan: Unchanged I have reviewed the history and physical and performed a pertinent physical examination on my patient. No changes have occurred unless specified. Time Spent With Patient Time: Total time managing care of this patient today ____ minutes.
--- NOTE | 2022-10-02 09:43 | HO.ECTPROC ---
ECT Procedure Note Diagnosis/Treatment Date of Service: 10/02/22 Diagnosis: Major Depressive Disorder Previous ECT Date: 09/04/22 Current Treatment Number: Other (16) Treatment: Maintenance Interval Clinical Notes: pt has been doing better less preoccupied Time: Total time managing care of this patient today ____ minutes. ECT Settings Device: THYMATRON DGx Electrode Placement: Right Unilateral Program/Pulse Width: 0.50 Energy Percent: 50 Seizure Duration By EEG (in seconds): 86 Medications Administration General Anesthetic: Etomidate (12) Muscle Relaxant: Succinylcholine (80) Ancillary Medications Anti-emetics: Zofran - Pre ECT Miscillaneous Medications: Propofol (30 mg at 65 s) Airway Management Airway Management: Bag Mask Ventilation Treatment Recommendations No Changes Recommended: No change Notes: f/u 4 weeks Pt Tolerated Procedure w/o Issue: Yes
[2022-10-02 10:03] VITALS: BP 136/70; PULSE 79; RESP 12; TEMP 36.8; O2SAT 95
[2022-10-02 10:08] VITALS: BP 133/64; PULSE 81; RESP 12; O2SAT 96
[2022-10-02 10:13] VITALS: BP 136/81; PULSE 86; RESP 16; O2SAT 96
[2022-10-02 10:17] VITALS: BP 144/75; PULSE 87; RESP 16; O2SAT 96
[2022-10-02 10:32] VITALS: BP 136/68; PULSE 72; RESP 16; TEMP 36.8; O2SAT 96
== END 2022-10-02 12:00 | disposition home or self-care (01) ==
PROVIDERS: PCP Family Medicine; Visit Provider Psychiatry & Neurology Psychiatry
PROC: (CPT 90870; principal; 2022-10-02 10:00)
DX: F33.2 Major depressive disorder, recurrent severe without psychotic features (principal); F42.9 Obsessive-compulsive disorder, unspecified; Z79.899 Other long term (current) drug therapy; Z20.822 Contact with and (suspected) exposure to COVID-19
CPT/HCPCS: 87635; 90870; J0330; J2405

== ENCOUNTER 2022-11-06 07:42 | Day surgery (SDC) | payer MEDICARE, SELFPAY ==
[2022-11-06 08:24] LABS: COVID-19 Test Positive (Negative); IDNOW Serial# 9DB6401D
[2022-11-06 08:28] VITALS: BP 126/67; PULSE 65; RESP 18; TEMP 36.3; O2SAT 98; BMI 24.0
--- NOTE | 2022-11-06 10:09 | MHC.SHP ---
Pre-Procedural Eval Section A Date of Service: 11/06/22 Section B Chief Complaint: Major depressive disorder, recurrent, severe with Details of Present Illness: doing better no acute med problems had covid 1 month ago with paxlovid no ongoing sx some dep sx no c/o side effects Relevant Social History: None Medical History: Significant History (depression) Allergies: Allergies Allergy/AdvReac Type Severity Reaction Status Date / Time No Known Allergies Allergy Verified 11/20/20 11:36 [No Known Allergies*] Review of Systems Sugical H&P ROS: Negative: Constitution, Cardiovascular, Respiratory, Neurological and Psychiatric Exam Surgical H&P Exam: Normal: Heart (rr) and Normal: Lungs (clear) Plan Diagnosis/Plan: Unchanged I have reviewed the history and physical and performed a pertinent physical examination on my patient. No changes have occurred unless specified. pos covid cleared by anesthesia no sx lungs clear po2 excellent no cardiac issues Time Spent With Patient Time: Total time managing care of this patient today ____ minutes.
[2022-11-06 10:29] VITALS: BP 137/63; PULSE 82; RESP 16; TEMP 36.8; O2SAT 100
--- NOTE | 2022-11-06 10:32 | HO.ECTPROC ---
ECT Procedure Note Diagnosis/Treatment Date of Service: 11/09/22 Diagnosis: Major Depressive Disorder Previous ECT Date: 09/04/22 Current Treatment Number: Other (16) Treatment: Maintenance Interval Clinical Notes: Patient has had some intermittent depressive symptoms ruminates about her Time: Total time managing care of this patient today ____ minutes. ECT Settings Device: THYMATRON DGx Electrode Placement: Bifrontal Program/Pulse Width: 0.25 Energy Percent: 40 Seizure Duration By EEG (in seconds): 69 Medications Administration General Anesthetic: Etomidate (12) Muscle Relaxant: Succinylcholine (80) Ancillary Medications Anti-emetics: Zofran - Pre ECT Miscillaneous Medications: Propofol (30 mg ) Airway Management Airway Management: Bag Mask Ventilation Treatment Recommendations No Changes Recommended: No change Notes: f/u 4 weeks consider change to 0.5 pulse with Pt Tolerated Procedure w/o Issue: Yes
[2022-11-06 10:34] VITALS: BP 125/71; PULSE 80; RESP 16; O2SAT 100
[2022-11-06 10:39] VITALS: BP 147/70; PULSE 82; RESP 16; O2SAT 100
[2022-11-06 10:44] VITALS: BP 141/72; PULSE 82; RESP 16; O2SAT 100
[2022-11-06 10:59] VITALS: BP 143/59; PULSE 82; RESP 16; TEMP 36.8; O2SAT 100
== END 2022-11-06 11:10 | disposition home or self-care (01) ==
PROVIDERS: PCP Family Medicine; Visit Provider Psychiatry & Neurology Psychiatry
PROC: (CPT 90870; principal; 2022-11-06 09:00)
DX: F33.2 Major depressive disorder, recurrent severe without psychotic features (principal); F42.9 Obsessive-compulsive disorder, unspecified; Z20.822 Contact with and (suspected) exposure to COVID-19; Z86.16 Personal history of COVID-19
CPT/HCPCS: 87635; 90870; J0330; J2405

== ENCOUNTER 2022-12-04 07:43 | Day surgery (SDC) | payer MEDICARE, BC, SELFPAY ==
[2022-12-04] VITALS (7 sets, daily range): BP systolic 129–164; BP diastolic 61–86; PULSE 67–78; RESP 15–18; TEMP 36.2–36.6; O2SAT 93–100; BMI 23.6
--- NOTE | 2022-12-04 09:55 | P.HPSUR_ITS ---
Pre-Procedural Eval Section A Date of Service: 12/04/22 Section B Chief Complaint: Major depressive disorder, recurrent, severe Details of Present Illness: doing well mild tremor Relevant Social History: None Medical History: Significant History (depression) Allergies: Allergies Allergy/AdvReac Type Severity Reaction Status Date / Time No Known Allergies Allergy Verified 11/20/20 11:36 [No Known Allergies*] Review of Systems Sugical H&P ROS: Negative: Constitution, Cardiovascular, Respiratory, Ne urological and Psychiatric Exam Surgical H&P Exam: Normal: Heart (rr) and Normal: Lungs (clear) Plan Diagnosis/Plan: Unchanged I have reviewed the history and physical and performed a pertinent physical examination on my patient. No changes have occurred unless specified. Time Spent With Patient Time: Total time managing care of this patient today ____ minutes.
--- NOTE | 2022-12-04 09:55 | HO.ECTPROC ---
ECT Procedure Note Diagnosis/Treatment Date of Service: 12/04/22 Diagnosis: Major Depressive Disorder Treatment: Maintenance Interval Clinical Notes: Patient feeling more stable Time: Total time managing care of this patient today ____ minutes. ECT Settings Device: THYMATRON DGx Electrode Placement: Right Unilateral Program/Pulse Width: 0.25 Energy Percent: 35 Seizure Duration By EEG (in seconds): 63 Medications Administration General Anesthetic: Etomidate (12) Muscle Relaxant: Succinylcholine (80) Ancillary Medications Miscillaneous Medications: Propofol (30) Airway Management Airway Management: Bag Mask Ventilation Treatment Recommendations No Changes Recommended: No change Notes: f/u tx 6 wks to call if problems h with prostate ca Pt Tolerated Procedure w/o Issue: Yes
== END 2022-12-04 11:00 | disposition home or self-care (01) ==
PROVIDERS: PCP Family Medicine; Visit Provider Psychiatry & Neurology Psychiatry
PROC: (CPT 90870; principal; 2022-12-04 09:30)
DX: F33.2 Major depressive disorder, recurrent severe without psychotic features (principal); Z79.899 Other long term (current) drug therapy; Z86.16 Personal history of COVID-19
CPT/HCPCS: 90870; J0330; J2405

== ENCOUNTER 2023-01-08 05:48 | Day surgery (SDC) | payer MEDICARE, SELFPAY ==
[2023-01-08] VITALS (7 sets, daily range): BP systolic 123–171; BP diastolic 70–94; PULSE 62–81; RESP 14–17; TEMP 36.1–36.6; O2SAT 95–100; BMI 23.0
--- NOTE | 2023-01-08 06:54 | P.CONAN_ITS ---
[facility] Active Problems Active Problems: All Active Problems (Updated 03/18/21 @ 00:02 by Mandy Mataallie) Major depressive disorder, recurrent severe without psychotic features (Acute) OCD (obsessive compulsive disorder) (Acute) Abnormal finding on EKG (Acute) Past Medical History Medical History Major depressive disorder, recurrent severe without psychotic features OCD (obsessive compulsive disorder) S/P ECT (electroconvulsive therapy) Family History Family History Mother CHF (congestive heart failure) Family history of problems with anesthesia: No Surgical History Surgical History No history of previous surgery History of Problems with Anesthesia: No Social History Social History Household Members: Spouse Housing: Condominium Do you presently have visiting nurse or other home services: No Patient Tobacco Use Status: Never used Tobacco Advance Directives: No Advance Directives Information Provided: Yes service: No Sexual orientation: Straight/Heterosexual Meds Allergies Allergy/AdvReac Type Severity Reaction Status Date / Time No Known Allergies Allergy Verified 11/20/20 11:36 [No Known Allergies*] Exam Exam Date and Time: January 08, 2023 0654 Height,Weight and Vital Signs: Height 5 ft 3 in Weight 58.967 kg Last Vital Signs Temp 97 F 01/08/23 06:39 Pulse 62 01/08/23 06:39 Resp 16 01/08/23 06:39 BP 123/70 01/08/23 06:39 Pulse Ox 96 01/08/23 06:39 O2 Del Method Room Air 01/08/23 06:39 Airway Mallampati Class: II TM Dist: >3cm Neck ROM: Full Heart: rrr Lungs: cta Assessment and Plan Assessment Anesthesia Assessment: Anesthesia Plan Discussed and Chart Reviewed Final Anesthetic Review Family History of Problems with Anesthesia: No History of Problems with Anesthesia: No NPO: Yes ASA Class: III Final Preanesthetic Review: No Changes in Pt Med Stat, Meds/Allgs Chart Reviewed and Consent Obtained/Reviewed Patient Risk: Intermediate Procedure Risk: Intermediate Anesthetic Plan Anesthetic Plan: GA Disposition: Standard PACU
--- NOTE | 2023-01-08 07:30 | MHC.SHP ---
Pre-Procedural Eval Section A Date of Service: 01/08/23 Section B Chief Complaint: Major depressive disorder, recurrent, severe Details of Present Illness: withdrawn dysphoric mild tremor Relevant Social History: None Medical History: Significant History (depression) Allergies: Allergies Allergy/AdvReac Type Severity Reaction Status Date / Time No Known Allergies Allergy Verified 11/20/20 11:36 [No Known Allergies*] Review of Systems Sugical H&P ROS: Negative: Cardiovascular, Respiratory and Psychiatric and Yes, Specify: Constitution (fatigue) and Neurological (tremor) Exam Surgical H&P Exam: Normal: Heart (rr) and Normal: Lungs (clear) and Significant Findings: Neurological (tremor no rigidity) Plan Diagnosis/Plan: Unchanged I have reviewed the history and physical and performed a pertinent physical examination on my patient. No changes have occurred unless specified. Time Spent With Patient Time: Total time managing care of this patient today ____ minutes.
--- NOTE | 2023-01-08 07:30 | HO.ECTPROC ---
ECT Procedure Note Diagnosis/Treatment Date of Service: 01/10/23 Diagnosis: Major Depressive Disorder Previous ECT Date: 12/04/22 Treatment: Maintenance Interval Clinical Notes: Patient feeling more constricted withdrawn no delusional content Time: Total time managing care of this patient today _30___ minutes. ECT Settings Device: THYMATRON DGx Electrode Placement: Right Unilateral Program/Pulse Width: 0.50 Energy Percent: 35 Seizure Duration By EEG (in seconds): 64 Medications Administration General Anesthetic: Etomidate (12) Muscle Relaxant: Succinylcholine (80) Ancillary Medications Miscillaneous Medications: Propofol (30) Airway Management Airway Management: Bag Mask Ventilation Treatment Recommendations No Changes Recommended: No change Notes: f/u tx 2-3 wks pt to see her outpatient psychiatrist Can see note to see if any adjustments in medication would be advisable. Patient is having some breakthrough symptoms Pt Tolerated Procedure w/o Issue: Yes
== END 2023-01-08 09:25 | disposition home or self-care (01) ==
PROVIDERS: PCP Family Medicine; Visit Provider Psychiatry & Neurology Psychiatry
PROC: (CPT 90870; principal; 2023-01-08 07:00)
DX: F33.2 Major depressive disorder, recurrent severe without psychotic features (principal); F42.9 Obsessive-compulsive disorder, unspecified; Z79.899 Other long term (current) drug therapy
CPT/HCPCS: 90870; J0330; J2405

== ENCOUNTER 2023-02-05 07:54 | Day surgery (SDC) | payer MEDICARE, BC, SELFPAY ==
[2023-02-05] VITALS (7 sets, daily range): BP systolic 115–144; BP diastolic 65–79; PULSE 67–72; RESP 13–17; TEMP 36.2–36.8; O2SAT 96–99; BMI 23.0
--- NOTE | 2023-02-05 08:55 | MHC.SHP ---
Pre-Procedural Eval Section A Date of Service: 02/05/23 Section B Chief Complaint: Major depressive disorder, recurrent, severe with Details of Present Illness: recurrent dep pts h has been dx memory dx Medical History: Significant History (psych hosp) History of Previous Operations: No relevant previous surgery (ect) Allergies: Allergies Allergy/AdvReac Type Severity Reaction Status Date / Time No Known Allergies Allergy Verified 11/20/20 11:36 [No Known Allergies*] Review of Systems Sugical H&P ROS: Negative: Cardiovascular and Respiratory and Yes, Specify: Psychiatric (some dysphoria ) Exam Surgical H&P Exam: Normal: Heart and Normal: Lungs Plan Diagnosis/Plan: Unchanged I have reviewed the history and physical and performed a pertinent physical examination on my patient. No changes have occurred unless specified. Time Spent With Patient Time: Total time managing care of this patient today ____ minutes.
--- NOTE | 2023-02-05 09:38 | HO.ANESPROP2 ---
[facility] BEDS AT [facility] Active Problems Active Problems: All Active Problems (Updated 03/18/21 @ 00:02 by Mandy Mataallie) Major depressive disorder, recurrent severe without psychotic features (Acute) OCD (obsessive compulsive disorder) (Acute) Abnormal finding on EKG (Acute) Past Medical History Medical History Major depressive disorder, recurrent severe without psychotic features OCD (obsessive compulsive disorder) S/P ECT (electroconvulsive therapy) Family History Family History Mother CHF (congestive heart failure) Family history of problems with anesthesia: No Surgical History Surgical History No history of previous surgery History of Problems with Anesthesia: No Social History Social History Household Members: Spouse Housing: Condominium Do you presently have visiting nurse or other home services: No Patient Tobacco Use Status: Never used Tobacco Advance Directives: No Advance Directives Information Provided: Yes service: No Sexual orientation: Straight/Heterosexual Meds Allergies Allergy/AdvReac Type Severity Reaction Status Date / Time No Known Allergies Allergy Verified 11/20/20 11:36 [No Known Allergies*] Exam Exam Date and Time: February 05, 2023 0938 Height,Weight and Vital Signs: Height 5 ft 3 in Weight 58.967 kg Last Vital Signs Temp 98.2 F 02/05/23 08:21 Pulse 67 02/05/23 08:21 Resp 16 02/05/23 08:21 BP 125/79 02/05/23 08:21 Pulse Ox 98 02/05/23 08:21 O2 Del Method Room Air 02/05/23 08:21 Airway Mallampati Class: II TM Dist: >3cm Neck ROM: Full Assessment and Plan Assessment Anesthesia Assessment: Anesthesia Plan Discussed and Chart Reviewed Final Anesthetic Review Family History of Problems with Anesthesia: No History of Problems with Anesthesia: No NPO: Yes ASA Class: II Final Preanesthetic Review: No Changes in Pt Med Stat, Meds/Allgs Chart Reviewed, Consent Obtained/Reviewed and Anes Risks/Benef Reviewed Patient Risk: Low Procedure Risk: Low Anesthetic Plan Anesthetic Plan: GA Disposition: Standard PACU
--- NOTE | 2023-02-08 12:28 | P.PCN_ITS ---
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 ECT Settings Device: THYMATRON DGx Electrode Placement: Right Unilateral Program/Pulse Width: 0.50 Energy Percent: 35 Seizure Duration By EEG (in seconds): 72 Medications Administration General Anesthetic: Etomidate (12) Muscle Relaxant: Succinylcholine (80) Ancillary Medications Anti-emetics: Zofran - Pre ECT Miscillaneous Medications: Propofol (30) Airway Management Airway Management: Bag Mask Ventilation Treatment Recommendations No Changes Recommended: No change Notes: Recommend follow-up 4-5 weeks patient is under significant stress has prostate cancer and some degree of cognitive impairment Pt Tolerated Procedure w/o Issue: Yes
== END 2023-02-05 11:06 | disposition home or self-care (01) ==
PROVIDERS: PCP Family Medicine; Visit Provider Psychiatry & Neurology Psychiatry
PROC: (CPT 90870; principal; 2023-02-05 09:30)
DX: F33.2 Major depressive disorder, recurrent severe without psychotic features (principal)
CPT/HCPCS: 90870; J0330; J2405

== ENCOUNTER → 2023-02-05 07:54 | Outpatient (BNV) | payer MEDICARE, BC, SELFPAY | PROVIDERS: PCP Family Medicine; Visit Provider Psychiatry & Neurology Psychiatry | DX: F33.3 Major depressive disorder, recurrent, severe with psychotic symptoms (principal) | CPT/HCPCS: 90870 ==

== ENCOUNTER 2023-03-05 07:44 | Day surgery (SDC) | payer MEDICARE, BC, SELFPAY ==
[2023-03-05] VITALS (7 sets, daily range): BP systolic 121–150; BP diastolic 61–79; PULSE 67–86; RESP 12–116; TEMP 36.4–36.7; O2SAT 95–100; BMI 23.9
--- NOTE | 2023-03-05 08:48 | P.CONAN_ITS ---
[facility] Active Problems Active Problems: All Active Problems (Updated 03/18/21 @ 00:02 by Mandy Sandra) Major depressive disorder, recurrent severe without psychotic features (Acute) OCD (obsessive compulsive disorder) (Acute) Abnormal finding on EKG (Acute) Past Medical History Medical History Major depressive disorder, recurrent severe without psychotic features OCD (obsessive compulsive disorder) S/P ECT (electroconvulsive therapy) Family History Family History Mother CHF (congestive heart failure) Family history of problems with anesthesia: No Surgical History Surgical History No history of previous surgery History of Problems with Anesthesia: No Social History Social History Household Members: Spouse Housing: Condominium Do you presently have visiting nurse or other home services: No Patient Tobacco Use Status: Never used Tobacco Advance Directives: No Advance Directives Information Provided: Yes service: No Sexual orientation: Straight/Heterosexual Meds Allergies Allergy/AdvReac Type Severity Reaction Status Date / Time No Known Allergies Allergy Verified 11/20/20 11:36 [No Known Allergies*] Exam Exam Date and Time: March 05, 2023 0848 Height,Weight and Vital Signs: Height 5 ft 3 in Weight 61.235 kg Last Vital Signs Temp 98.1 F 03/05/23 08:07 Pulse 67 03/05/23 08:07 Resp 16 03/05/23 08:07 BP 139/69 03/05/23 08:07 Pulse Ox 95 03/05/23 08:07 O2 Del Method Room Air 03/05/23 08:07 Airway Mallampati Class: II TM Dist: >3cm Neck ROM: Full Assessment and Plan Assessment Anesthesia Assessment: Anesthesia Plan Discussed and Chart Reviewed Final Anesthetic Review Family History of Problems with Anesthesia: No History of Problems with Anesthesia: No NPO: Yes ASA Class: II Final Preanesthetic Review: No Changes in Pt Med Stat, Meds/Allgs Chart Revie wed, Consent Obtained/Reviewed and Anes Risks/Benef Reviewed Patient Risk: Intermediate Procedure Risk: Intermediate Anesthetic Plan Anesthetic Plan: GA Disposition: Standard PACU
--- NOTE | 2023-03-05 09:30 | MHC.SHP ---
Pre-Procedural Eval Section A Date of Service: 03/05/23 The patient is an INPATIENT: No Changes since office visit: No Cold of Flu in the past 2 weeks, No New Medical Problems, No Changes in Medication and No Patient answered all questions The History & Physical has been completed within 30 days and I have reviewed it.: Yes Section B Chief Complaint: depression Details of Present Illness: Long history of depression, no new symptoms currently, stable with treatment. Relevant Family History (Specify if Yes): No Relevant Social History: None Present Medications: see Short Stay Collaborative assessment Medical History: No relevant PMH History of Previous Operations: No relevant previous surgery Allergies: Allergies Allergy/AdvReac Type Severity Reaction Status Date / Time No Known Allergies Allergy Verified 11/20/20 11:36 [No Known Allergies*] Review of Systems Sugical H&P ROS: Negative: Constitution, Cardiovascular, Respiratory, Neurological, Psychiatric, Hem-Onc, Allergic/Immunologic, Gastrointestinal, Genitourinary, Musculoskeletal, Integumentary, Endocrine and Eyes/Ears/Nose/Throat Exam Surgical H&P Exam: Normal: HEENT, Normal: Heart, Normal: Lungs, Normal: Extremities, Normal: Abdomen, Normal: Skin and Normal: Neurological Plan Diagnosis/Plan: Unchanged I have reviewed the history and physical and performed a pertinent physical examination on my patient. No changes have occurred unless specified. Time Spent With Patient Time: Total time managing care of this patient today __20__ minutes.
--- NOTE | 2023-03-05 09:46 | HO.ECTPROC ---
ECT Procedure Note Diagnosis/Treatment Date of Service: 03/05/23 Diagnosis: Major Depressive Disorder Previous ECT Date: 02/05/23 Treatment: Maintenance Interval Clinical Notes: The patient reported stable mood, no new symptoms, on maientenance. Time: Total time managing care of this patient today __30__ minutes. ECT Settings Device: THYMATRON DGx Electrode Placement: Right Unilateral Program/Pulse Width: 0.25 Energy Percent: 35 Seizure Duration By EEG (in seconds): 74 By Motor Observation (in seconds): 60 Medications Administration General Anesthetic: Etomidate (14) Muscle Relaxant: Succinylcholine (80) Ancillary Medications Anti-emetics: Zofran - Pre ECT Airway Management Airway Management: Bag Mask Ventilation Treatment Recommendations Electrode Placement: Right Unilateral Program/Pulse Width: 0.25 Energy Percent: 30 Notes: Long seizure, historically, she has long seizures, probably should lower the stimuli Pt Tolerated Procedure w/o Issue: Yes
== END 2023-03-05 11:00 | disposition home or self-care (01) ==
PROVIDERS: PCP Family Medicine; Visit Provider Psychiatry & Neurology Psychiatry
PROC: (CPT 90870; principal; 2023-03-05 09:30)
DX: F33.2 Major depressive disorder, recurrent severe without psychotic features (principal); F42.9 Obsessive-compulsive disorder, unspecified; R94.31 Abnormal electrocardiogram [ECG] [EKG]; Z79.899 Other long term (current) drug therapy
CPT/HCPCS: 90870; J0330; J2405

== ENCOUNTER → 2023-03-05 07:44 | Outpatient (BNV) | payer MEDICARE, BC, SELFPAY | PROVIDERS: PCP Family Medicine; Visit Provider Psychiatry & Neurology Psychiatry | DX: F33.3 Major depressive disorder, recurrent, severe with psychotic symptoms (principal) | CPT/HCPCS: 90870 ==

== ENCOUNTER 2023-06-04 07:45 | Day surgery (SDC) | payer MEDICARE, BC, SELFPAY ==
[2023-06-04] VITALS (7 sets, daily range): BP systolic 137–153; BP diastolic 70–82; PULSE 70–93; RESP 14–16; TEMP 36.2–36.7; O2SAT 92–99; BMI 23.0
--- NOTE | 2023-06-04 07:46 | MHC.SHP ---
Pre-Procedural Eval Section A Date of Service: 06/04/23 Changes since office visit: Yes Patient answered all questions; No Cold of Flu in the past 2 weeks, No New Medical Problems and No Changes in Medication The History & Physical has been completed within 30 days and I have reviewed it.: Yes Section B Chief Complaint: Major depressive disorder, recurrent, severe with Allergies: Allergies Allergy/AdvReac Type Severity Reaction Status Date / Time No Known Allergies Allergy Verified 11/20/20 11:36 [No Known Allergies*] Plan I have reviewed the history and physical and performed a pertinent physical examination on my patient. No changes have occurred unless specified. Time Spent With Patient Time: Total time managing care of this patient today ____ minutes.
[2023-06-04 08:29] LABS: MANUAL DIFF FLAG NO
--- NOTE | 2023-06-04 08:30 | HO.ANESPROP2 ---
[facility] Active Problems Active Problems: All Active Problems (Updated 03/18/21 @ 00:02 by Mandy Flores) Major depressive disorder, recurrent severe without psychotic features (Acute) OCD (obsessive compulsive disorder) (Acute) Abnormal finding on EKG (Acute) Past Medical History Medical History Major depressive disorder, recurrent severe without psychotic features OCD (obsessive compulsive disorder) S/P ECT (electroconvulsive therapy) Family History Family History Mother CHF (congestive heart failure) Family history of problems with anesthesia: No Surgical History Surgical History No history of previous surgery History of Problems with Anesthesia: No Social History Social History Household Members: Spouse Housing: Condominium Do you presently have visiting nurse or other home services: No Patient Tobacco Use Status: Never used Tobacco Advance Directives: No Advance Directives Information Provided: Yes service: No Sexual orientation: Straight/Heterosexual Meds Allergies Allergy/AdvReac Type Severity Reaction Status Date / Time No Known Allergies Allergy Verified 06/04/23 08:08 [No Known Allergies*] Home Medications Medication Instructions Recorded Confirmed Last Taken Type venlafaxine 150 mg 150 mg PO DAILY 06/04/23 06/04/23 06/03/23 History capsule,extended release 24 hr Exam Height,Weight and Vital Signs: Height 5 ft 3 in Weight 58.967 kg Last Vital Signs Temp 97.2 F 06/04/23 08:23 Pulse 93 06/04/23 08:23 Resp 16 06/04/23 08:23 BP 141/70 H 06/04/23 08:23 Pulse Ox 99 06/04/23 08:23 O2 Del Method Room Air 06/04/23 08:23 Airway Mallampati Class: II TM Dist: >3cm Neck ROM: Full Heart: rrr Lungs: cta Assessment and Plan Assessment Anesthesia Assessment: Anesthesia Plan Discussed and Chart Reviewed Final Anesthetic Review Family History of Problems with Anesthesia: No History of Problems with Anesthesia: No NPO: Yes ASA Class: III Final Preanesthetic Review: No Changes in Pt Med Stat, Meds/Allgs Chart Reviewed and Consent Obtained/Reviewed Patient Risk: Intermediate Procedure Risk: Intermediate Anesthetic Plan Anesthetic Plan: GA Disposition: Standard PACU
[2023-06-04 08:31] LABS: Basophils Percent Auto 0.7 % (0-2); Eosinophils Absolute Auto 0.1 X10*3/uL (0.0-0.4); Eosinophils Percent Auto 1.7 % (0-4); Hemoglobin 14.7 g/dl (12.0-16.0); Imm Gran Abs Auto 0.02 X10*3/uL (0.00-0.03); Imm Gran Pct Auto 0.3 % (0.0-0.4); Lymphocytes Absolute Auto 2.8 X10*3/uL (1.2-4.9); Lymphocytes Percent Auto 46.9 % (20-40); Mean Corpuscular HGB Conc 33.4 g/dl (31.0-35.0); Mean Corpuscular Hemoglobin 30.6 pg (27.0-33.0); Mean Corpuscular Volume 91.5 fL (80.0-98.0); Mean Platelet Volume 10.8 fL (9.4-12.3); Monocytes Absolute Auto 0.6 X10*3/uL (0.1-1.2); Monocytes Percent Auto 9.1 % (2-11); Neutrophils Absolute Auto 2.5 x10*3/uL (2.0-8.3); Neutrophils Percent Auto 41.3 % (45-73); Platelet Count 211 X10*3/uL (160-400); Red Blood Count 4.81 X10*6/uL (4.20-5.50); Red Cell Distribution Width 12.6 % (11.0-16.0); White Blood Count 6.1 X10*3/uL (4.8-10.8)
[2023-06-04 08:48] LABS: Alanine Aminotransferase 27 U/L (0-31); Albumin Level 4.2 g/dL (3.5-5.0); Alkaline Phosphatase 72 U/L (39-117); Anion Gap 10 (12-20); Aspartate Amino Transferase 29 U/L (5-31); Bilirubin Total 0.7 mg/dL (0.0-1.0); Blood Urea Nitrogen 18 mg/dL (9-16); Calcium 9.4 mg/dL (8.4-10.2); Carbon Dioxide 29 mmol/L (22-29); Chloride 106 mmol/L (96-108); Creatinine Clr Calc Pharmacy 41.7; Estimated Glomerular Filt Rate > 60; Glucose Fasting 96 mg/dL (60-99); Potassium 4.1 mmol/L (3.3-5.1); Sodium 141 mmol/L (135-145); Total Protein 6.6 g/dL (6.5-8.0)
--- NOTE | 2023-06-04 09:56 | HO.ECTPROC ---
ECT Procedure Note Diagnosis/Treatment Date of Service: 06/04/23 Diagnosis: Major Depressive Disorder Previous ECT Date: 03/05/23 Treatment: Maintenance Interval Clinical Notes: The patient has some degree of MCI. She is now on [address] Butler. The patient's has been diagnosed with Alzheimer's there now living in its asstd living in [place]. She was initially somewhat depressed but states she is now generally feeling well mood stable future oriented no complaints of side effects with ECT Time: Total time managing care of this patient today ____ minutes. ECT Settings Device: THYMATRON DGx Electrode Placement: Right Unilateral Program/Pulse Width: 0.25 Energy Percent: 25 Seizure Duration By EEG (in seconds): 67 By Motor Observation (in seconds): 60 Medications Administration General Anesthetic: Etomidate (12) Muscle Relaxant: Succinylcholine (80) Ancillary Medications Anti-emetics: Zofran - Pre ECT Miscillaneous Medications: Propofol (30) Airway Management Airway Management: Bag Mask Ventilation Treatment Recommendations Electrode Placement: Right Unilateral Program/Pulse Width: 0.25 Energy Percent: 25 Notes: Follow-up treatment 4 weeks Pt Tolerated Procedure w/o Issue: Yes
== END 2023-06-04 11:08 | disposition home or self-care (01) ==
PROVIDERS: PCP Family Medicine; Visit Provider Psychiatry & Neurology Psychiatry
PROC: (CPT 90870; principal; 2023-06-04 09:30)
DX: F33.2 Major depressive disorder, recurrent severe without psychotic features (principal); F42.9 Obsessive-compulsive disorder, unspecified; Z79.899 Other long term (current) drug therapy
CPT/HCPCS: 36415; 80053; 85025; 90870; J0330; J2405; J2704

== ENCOUNTER → 2023-06-04 07:45 | Outpatient (BNV) | payer MEDICARE, BC, SELFPAY | PROVIDERS: PCP Family Medicine; Visit Provider Psychiatry & Neurology Psychiatry | DX: F33.3 Major depressive disorder, recurrent, severe with psychotic symptoms (principal) | CPT/HCPCS: 90870 ==

== ENCOUNTER 2023-07-02 07:26 | Day surgery (SDC) | payer MEDICARE, BC, SELFPAY ==
[2023-07-02] VITALS (7 sets, daily range): BP systolic 124–141; BP diastolic 72–82; PULSE 71–86; RESP 16–18; TEMP 36.3–37.3; O2SAT 93–98; BMI 23.0
--- NOTE | 2023-07-02 08:38 | HO.ANESPROP2 ---
[facility], [facility] Active Problems Active Problems: All Active Problems (Updated 03/18/21 @ 00:02 by Mandy Flores) Major depressive disorder, recurrent severe without psychotic features (Acute) OCD (obsessive compulsive disorder) (Acute) Abnormal finding on EKG (Acute) Past Medical History Medical History Major depressive disorder, recurrent severe without psychotic features OCD (obsessive compulsive disorder) S/P ECT (electroconvulsive therapy) Family History Family History Mother CHF (congestive heart failure) Family history of problems with anesthesia: No Surgical History Surgical History No history of previous surgery History of Problems with Anesthesia: No Social History Social History Household Members: Spouse Housing: Condominium Do you presently have visiting nurse or other home services: No Patient Tobacco Use Status: Never used Tobacco Advance Directives: No Advance Directives Information Provided: Yes service: No Sexual orientation: Straight/Heterosexual Meds Allergies Allergy/AdvReac Type Severity Reaction Status Date / Time No Known Allergies Allergy Verified 06/04/23 08:08 [No Known Allergies*] Home Medications Medication Instructions Recorded Confirmed Last Taken Type venlafaxine 150 mg 150 mg PO DAILY 06/04/23 06/04/23 06/03/23 History capsule,extended release 24 hr Exam Height,Weight and Vital Signs: Height 5 ft 3 in Weight 58.967 kg Last Vital Signs Temp 97.4 F 07/02/23 08:07 Pulse 71 07/02/23 08:07 Resp 18 07/02/23 08:07 BP 141/75 H 07/02/23 08:07 Pulse Ox 98 07/02/23 08:07 O2 Del Method Room Air 07/02/23 08:07 Airway Mallampati Class: II TM Dist: >3cm Neck ROM: Full Heart: rrr Lungs: cta Assessment and Plan Assessment Anesthesia Assessment: Anesthesia Plan Discussed and Chart Reviewed Final Anesthetic Review Family History of Problems with Anesthesia: No History of Problems with Anesthesia: No NPO: Yes ASA Class: III Final Preanesthetic Review: No Changes in Pt Med Stat, Meds/Allgs Chart Reviewed and Consent Obtained/Reviewed Patient Risk: Intermediate Procedure Risk: Intermediate Anesthetic Plan Anesthetic Plan: GA Disposition: Standard PACU
--- NOTE | 2023-07-02 09:40 | MHC.SHP ---
Pre-Procedural Eval Section A Date of Service: 07/02/23 The patient is an INPATIENT: No Changes since office visit: Yes Cold of Flu in the past 2 weeks, Yes New Medical Problems, Yes Changes in Medication and Yes Patient answered all questions The History & Physical has been completed within 30 days and I have reviewed it.: Yes Section B Chief Complaint: depression Allergies: Allergies Allergy/AdvReac Type Severity Reaction Status Date / Time No Known Allergies Allergy Verified 06/04/23 08:08 [No Known Allergies*] Plan I have reviewed the history and physical and performed a pertinent physical examination on my patient. No changes have occurred unless specified. Time Spent With Patient Time: Total time managing care of this patient today ____ minutes.
--- NOTE | 2023-07-02 09:40 | HO.ECTPROC ---
ECT Procedure Note Diagnosis/Treatment Date of Service: 07/02/23 Diagnosis: Major Depressive Disorder Previous ECT Date: 06/04/23 Treatment: Maintenance Interval Clinical Notes: The patient reports midl dysphoria but no full blown depressive symptoms. Denies side effects with previous ECT. Procedure done as usual, requiered Propofol. Woke up without problems. Time: Total time managing care of this patient today __30__ minutes. ECT Settings Device: THYMATRON DGx Electrode Placement: Right Unilateral Program/Pulse Width: 0.25 Energy Percent: 25 Seizure Duration By EEG (in seconds): 0 (computer didn't recognize seizure but she had seizure activity until 78s) By Motor Observation (in seconds): 45 Ancillary Medications Analgesics: Torodol - Pre ECT Anti-emetics: Zofran - Pre ECT Miscillaneous Medications: Propofol Airway Management Airway Management: Bag Mask Ventilation Treatment Recommendations No Changes Recommended: No change Pt Tolerated Procedure w/o Issue: Yes
== END 2023-07-02 10:53 | disposition home or self-care (01) ==
PROVIDERS: PCP Family Medicine; Visit Provider Psychiatry & Neurology Psychiatry
PROC: (CPT 90870; principal; 2023-07-02 09:30)
DX: F33.2 Major depressive disorder, recurrent severe without psychotic features (principal); F42.9 Obsessive-compulsive disorder, unspecified; Z79.899 Other long term (current) drug therapy
CPT/HCPCS: 90870; J0330; J2305; J2405; J2704

== ENCOUNTER → 2023-07-02 07:26 | Outpatient (BNV) | payer MEDICARE, BC, SELFPAY | PROVIDERS: PCP Family Medicine; Visit Provider Psychiatry & Neurology Psychiatry | DX: F33.3 Major depressive disorder, recurrent, severe with psychotic symptoms (principal) | CPT/HCPCS: 90870 ==

== ENCOUNTER 2023-08-06 07:44 | Day surgery (SDC) | payer MEDICARE, BC, SELFPAY ==
[2023-08-06] VITALS (7 sets, daily range): BP systolic 128–181; BP diastolic 65–83; PULSE 69–79; RESP 16–18; TEMP 36.4–36.8; O2SAT 95–100; BMI 23.0
--- NOTE | 2023-08-06 08:32 | HO.ANESPROP2 ---
[facility] Active Problems Active Problems: All Active Problems (Updated 03/18/21 @ 00:02 by Mandy Flores) Major depressive disorder, recurrent severe without psychotic features (Acute) OCD (obsessive compulsive disorder) (Acute) Abnormal finding on EKG (Acute) Past Medical History Medical History Major depressive disorder, recurrent severe without psychotic features OCD (obsessive compulsive disorder) S/P ECT (electroconvulsive therapy) Family History Family History Mother CHF (congestive heart failure) Family history of problems with anesthesia: No Surgical History Surgical History No history of previous surgery History of Problems with Anesthesia: No Social History Social History Household Members: Spouse Housing: Condominium Do you presently have visiting nurse or other home services: No Patient Tobacco Use Status: Never used Tobacco Advance Directives: No Advance Directives Information Provided: Yes service: No Sexual orientation: Straight/Heterosexual Meds Allergies Allergy/AdvReac Type Severity Reaction Status Date / Time No Known Allergies Allergy Verified 06/04/23 08:08 [No Known Allergies*] Home Medications Medication Instructions Recorded Confirmed Last Taken Type venlafaxine 150 mg 150 mg PO DAILY 06/04/23 06/04/23 06/03/23 History capsule,extended release 24 hr Exam Height,Weight and Vital Signs: Height 5 ft 3 in Weight 58.967 kg Last Vital Signs Temp 97.6 F 08/06/23 08:20 Pulse 69 08/06/23 08:20 Resp 18 08/06/23 08:20 BP 128/69 08/06/23 08:20 Pulse Ox 97 08/06/23 08:20 O2 Del Method Room Air 08/06/23 08:20 Airway Mallampati Class: II TM Dist: >3cm Neck ROM: Full Heart: rrr Lungs: cta Assessment and Plan Assessment Anesthesia Assessment: Anesthesia Plan Discussed and Chart Reviewed Final Anesthetic Review Family History of Problems with Anesthesia: No History of Problems with Anesthesia: No NPO: Yes ASA Class: III Final Preanesthetic Review: No Changes in Pt Med Stat, Meds/Allgs Chart Reviewed and Consent Obtained/Reviewed Patient Risk: Intermediate Procedure Risk: Intermediate Anesthetic Plan Anesthetic Plan: MAC: Disposition: Standard PACU
--- NOTE | 2023-08-06 09:18 | MHC.SHP ---
Pre-Procedural Eval Section A Date of Service: 08/06/23 The patient is an INPATIENT: No Changes since office visit: Yes Changes in Medication and Yes Patient answered all questions; No Cold of Flu in the past 2 weeks and No New Medical Problems The History & Physical has been completed within 30 days and I have reviewed it.: No Section B Chief Complaint: depression Details of Present Illness: recurrent depression inc st memory dysfx Relevant Social History: None Allergies: Allergies Allergy/AdvReac Type Severity Reaction Status Date / Time No Known Allergies Allergy Verified 06/04/23 08:08 [No Known Allergies*] Review of Systems Sugical H&P ROS: Negative: Cardiovascular and Respiratory and Yes, Specify: Neurological (st memory dys fx) Exam Surgical H&P Exam: Normal: Heart and Normal: Lungs Plan Diagnosis/Plan: Unchanged I have reviewed the history and physical and performed a pertinent physical examination on my patient. No changes have occurred unless specified. Time Spent With Patient Time: Total time managing care of this patient today _30___ minutes.
--- NOTE | 2023-08-06 09:42 | HO.ECTPROC ---
ECT Procedure Note Diagnosis/Treatment Date of Service: 08/08/23 Diagnosis: Major Depressive Disorder Previous ECT Date: 07/02/23 Treatment: Maintenance Interval Clinical Notes: Pt has been generally stable no medical changes has no psychosis or significant depressive sx Time: Total time managing care of this patient today ____ minutes. ECT Settings Device: THYMATRON DGx Electrode Placement: Right Unilateral Program/Pulse Width: 0.25 Energy Percent: 20 Seizure Duration By EEG (in seconds): 73 Medications Administration General Anesthetic: Etomidate (12) Muscle Relaxant: Succinylcholine (80) Ancillary Medications Anti-emetics: Zofran - Pre ECT (4) Miscillaneous Medications: Propofol (30) Treatment Recommendations Energy Percent: 15 Notes: seems stabilized by q 4 wk tx no c/o side effects Pt Tolerated Procedure w/o Issue: Yes
== END 2023-08-06 10:46 | disposition home or self-care (01) ==
PROVIDERS: PCP Family Medicine; Visit Provider Psychiatry & Neurology Psychiatry
PROC: (CPT 90870; principal; 2023-08-06 09:30)
DX: F33.2 Major depressive disorder, recurrent severe without psychotic features (principal); F42.9 Obsessive-compulsive disorder, unspecified; N18.31 Chronic kidney disease, stage 3a; Z79.899 Other long term (current) drug therapy
CPT/HCPCS: 90870; J0330; J2305; J2405; J2704

== ENCOUNTER → 2023-08-06 07:44 | Outpatient (BNV) | payer MEDICARE, OTHER, SELFPAY | PROVIDERS: PCP Family Medicine; Visit Provider Psychiatry & Neurology Psychiatry | DX: F33.3 Major depressive disorder, recurrent, severe with psychotic symptoms (principal) | CPT/HCPCS: 90870 ==

== ENCOUNTER 2023-09-03 08:04 | Day surgery (SDC) | payer MEDICARE, SELFPAY ==
[2023-09-03] VITALS (8 sets, daily range): BP systolic 123–139; BP diastolic 61–72; PULSE 67–76; RESP 13–17; TEMP 36.3–36.4; O2SAT 96–98; BMI 23.0
--- NOTE | 2023-09-03 08:27 | HO.ANESPROP2 ---
[facility] Active Problems Active Problems: All Active Problems (Updated 03/18/21 @ 00:02 by Mandy Flores) Major depressive disorder, recurrent severe without psychotic features (Acute) OCD (obsessive compulsive disorder) (Acute) Abnormal finding on EKG (Acute) Past Medical History Medical History Major depressive disorder, recurrent severe without psychotic features OCD (obsessive compulsive disorder) S/P ECT (electroconvulsive therapy) Family History Family History Mother CHF (congestive heart failure) Family history of problems with anesthesia: No Surgical History Surgical History No history of previous surgery History of Problems with Anesthesia: No Social History Social History Household Members: Spouse Housing: Condominium Do you presently have visiting nurse or other home services: No Patient Tobacco Use Status: Never used Tobacco Advance Directives: No Advance Directives Information Provided: Yes service: No Sexual orientation: Straight/Heterosexual Meds Allergies Allergy/AdvReac Type Severity Reaction Status Date / Time No Known Allergies Allergy Verified 06/04/23 08:08 [No Known Allergies*] Home Medications Medication Instructions Recorded Confirmed Last Taken Type venlafaxine 150 mg 150 mg PO DAILY 06/04/23 06/04/23 06/03/23 History capsule,extended release 24 hr Exam Airway Mallampati Class: II TM Dist: >3cm Neck ROM: Full Heart: rrr Lungs: cta Assessment and Plan Assessment Anesthesia Assessment: Anesthesia Plan Discussed and Chart Reviewed Final Anesthetic Review Family History of Problems with Anesthesia: No History of Problems with Anesthesia: No NPO: Yes ASA Class: III Final Preanesthetic Review: No Changes in Pt Med Stat, Meds/Allgs Chart Reviewed and Consent Obtained/Reviewed Patient Risk: Intermediate Procedure Risk: Intermediate Anesthetic Plan Anesthetic Plan: GA Disposition: Standard PACU
--- NOTE | 2023-09-03 09:14 | MHC.SHP ---
Pre-Procedural Eval Section A - 24 Hr Update-Section A only Date of Service: 09/03/23 The patient is an INPATIENT: No Changes since office visit: Yes Changes in Medication and Yes Patient answered all questions; No Cold of Flu in the past 2 weeks and No New Medical Problems The patient has been examined within 24 hours of the surgical procedure. The History & Physical has been completed within 30 days and I have reviewed it.: No Section B - Complete if H&P > 30 days Chief Complaint: depression Details of Present Illness: recurrent depression inc st memory dysfx stable with ect Relevant Social History: None Allergies: Allergies Allergy/AdvReac Type Severity Reaction Status Date / Time No Known Allergies Allergy Verified 06/04/23 08:08 [No Known Allergies*] Review of Systems Sugical H&P ROS: Negative: Cardiovascular and Respiratory and Yes, Specify: Neurological (st memory dys fx ongoing) Exam Surgical H&P Exam: Normal: Heart (rr no murmur ) and Normal: Lungs (clear) Plan Diagnosis/Plan: Unchanged I have reviewed the history and physical and performed a pertinent physical examination on my patient. No changes have occurred unless specified. Time Spent With Patient Time: Total time managing care of this patient today ____ minutes.
--- NOTE | 2023-09-03 09:34 | HO.ECTPROC ---
ECT Procedure Note Diagnosis/Treatment Date of Service: 09/04/23 Diagnosis: Major Depressive Disorder Previous ECT Date: 08/06/23 Treatment: Maintenance Interval Clinical Notes: Pt has been generally stable no medical changes has no psychosis or significant depressive sx tolerated ect well Time: Total time managing care of this patient today ____ minutes. ECT Settings Device: THYMATRON DGx Electrode Placement: Right Unilateral Program/Pulse Width: 0.25 Energy Percent: 20 Seizure Duration By EEG (in seconds): 73 Medications Administration General Anesthetic: Etomidate (12) Muscle Relaxant: Succinylcholine (80) Ancillary Medications Anti-emetics: Zofran - Pre ECT (4) Miscillaneous Medications: Propofol (30) Treatment Recommendations Energy Percent: 15 Notes: seems stabilized by q 4 wk tx no c/o side effects Pt Tolerated Procedure w/o Issue: Yes
== END 2023-09-03 10:51 | disposition home or self-care (01) ==
PROVIDERS: PCP Family Medicine; Visit Provider Psychiatry & Neurology Psychiatry
PROC: (CPT 90870; principal; 2023-09-03 09:30)
DX: F33.2 Major depressive disorder, recurrent severe without psychotic features (principal); F42.9 Obsessive-compulsive disorder, unspecified; N18.31 Chronic kidney disease, stage 3a; Z79.899 Other long term (current) drug therapy
CPT/HCPCS: 90870; J0330; J2405; J2704

== ENCOUNTER → 2023-09-03 08:04 | Outpatient (BNV) | payer MEDICARE, BC, SELFPAY | PROVIDERS: PCP Family Medicine; Visit Provider Psychiatry & Neurology Psychiatry | DX: F33.3 Major depressive disorder, recurrent, severe with psychotic symptoms (principal) | CPT/HCPCS: 90870 ==

== ENCOUNTER 2023-10-01 08:07 | Day surgery (SDC) | payer MEDICARE, BC, SELFPAY ==
[2023-10-01] VITALS (8 sets, daily range): BP systolic 124–171; BP diastolic 63–87; PULSE 61–73; RESP 14–18; TEMP 36.1–37; O2SAT 92–99; BMI 23.0
--- NOTE | 2023-10-01 08:33 | P.CONAN_ITS ---
[facility] [place] Active Problems Active Problems: All Active Problems (Updated 03/18/21 @ 00:02 by Mandy Flores) Major depressive disorder, recurrent severe without psychotic features (Acute) OCD (obsessive compulsive disorder) (Acute) Abnormal finding on EKG (Acute) Past Medical History Medical History Major depressive disorder, recurrent severe without psychotic features OCD (obsessive compulsive disorder) S/P ECT (electroconvulsive therapy) Family History Family History Mother CHF (congestive heart failure) Family history of problems with anesthesia: No Surgical History Surgical History No history of previous surgery History of Problems with Anesthesia: No Social History Social History Household Members: Spouse Housing: Condominium Do you presently have visiting nurse or other home services: No Patient Tobacco Use Status: Never used Tobacco Advance Directives: No Advance Directives Information Provided: Yes service: No Sexual orientation: Straight/Heterosexual Meds Allergies Allergy/AdvReac Type Severity Reaction Status Date / Time No Known Allergies Allergy Verified 06/04/23 08:08 [No Known Allergies*] Home Medications Medication Instructions Recorded Confirmed Last Taken Type venlafaxine 150 mg 150 mg PO DAILY 06/04/23 06/04/23 06/03/23 History capsule,extended release 24 hr Exam Height,Weight and Vital Signs: Height 5 ft 3 in Weight 58.967 kg Last Vital Signs Temp 97 F 10/01/23 08:22 Pulse 62 10/01/23 08:22 Resp 16 10/01/23 08:22 BP 126/63 10/01/23 08:22 Pulse Ox 96 10/01/23 08:22 O2 Del Method Room Air 10/01/23 08:22 Airway Mallampati Class: II TM Dist: >3cm Neck ROM: Full Heart: rrr Lungs: cta Assessment and Plan Assessment Anesthesia Assessment: Anesthesia Plan Discussed and Chart Reviewed Final Anesthetic Review Family History of Problems with Anesthesia: No History of Problems with Anesthesia: No NPO: Yes ASA Class: III Final Preanesthetic Review: No Changes in Pt Med Stat, Meds/Allgs Chart Reviewed and Consent Obtained/Reviewed Patient Risk: Intermediate Procedure Risk: Intermediate Anesthetic Plan Anesthetic Plan: GA Disposition: Standard PACU
[2023-10-01] MEDS: Lactated Ringers 1,000 ML 50 ML IVCONT (08:53)
--- NOTE | 2023-10-01 09:09 | MHC.SHP ---
Pre-Procedural Eval Section A - 24 Hr Update-Section A only Date of Service: 10/01/23 The patient is an INPATIENT: No Changes since office visit: Yes Patient answered all questions; No Cold of Flu in the past 2 weeks, No New Medical Problems and No Changes in Medication The patient has been examined within 24 hours of the surgical procedure. The History & Physical has been completed within 30 days and I have reviewed it.: No Section B - Complete if H&P > 30 days Chief Complaint: depression Details of Present Illness: recurrent depression inc st memory dysfx stable with ect Relevant Social History: None Allergies: Allergies Allergy/AdvReac Type Severity Reaction Status Date / Time No Known Allergies Allergy Verified 06/04/23 08:08 [No Known Allergies*] Review of Systems Sugical H&P ROS: Negative: Cardiovascular, Respiratory and Psychiatric (feeling well) and Yes, Specify: Neurological (st memory dys fx ongoing) Exam Surgical H&P Exam: Normal: Heart (rr no murmur ), Normal: Lungs (clear) and Normal: Neurological Plan Diagnosis/Plan: Unchanged I have reviewed the history and physical and performed a pertinent physical examination on my patient. No changes have occurred unless specified. Time Spent With Patient Time: Total time managing care of this patient today ____ minutes.
--- NOTE | 2023-10-01 09:15 | HO.ECTPROC ---
ECT Procedure Note Diagnosis/Treatment Date of Service: 10/01/23 Diagnosis: Major Depressive Disorder Previous ECT Date: 09/03/23 Treatment: Maintenance Interval Clinical Notes: Pt has been generally stable no medical changes has no psychosis or significant depressive sx tolerated ect well stimulation lowered to 10% 0.25 pulse width seems to be doing well with maintenance treatment despite stressors of with dementia diagnosis Time: Total time managing care of this patient today _30___ minutes. ECT Settings Device: THYMATRON DGx Electrode Placement: Right Unilateral Program/Pulse Width: 0.25 Energy Percent: 20 Seizure Duration By EEG (in seconds): 78 Medications Administration General Anesthetic: Etomidate (12) Muscle Relaxant: Succinylcholine (80) Ancillary Medications Anti-emetics: Zofran - Pre ECT (4) Miscillaneous Medications: Propofol (30) Airway Management Airway Management: Bag Mask Ventilation Treatment Recommendations Energy Percent: 15 Notes: seems stabilized by q 4 wk tx no c/o side effects could try and decrease stimulation further however no complaints of side effects and has been stable Pt Tolerated Procedure w/o Issue: Yes
== END 2023-10-01 10:55 | disposition home or self-care (01) ==
PROVIDERS: PCP Family Medicine; Visit Provider Psychiatry & Neurology Psychiatry
PROC: (CPT 90870; principal; 2023-10-01 09:30)
DX: F33.2 Major depressive disorder, recurrent severe without psychotic features (principal); N18.30 Chronic kidney disease, stage 3 unspecified; Z79.899 Other long term (current) drug therapy
CPT/HCPCS: 90870; J0330; J2405; J2704

== ENCOUNTER → 2023-10-01 08:07 | Outpatient (BNV) | payer MEDICARE, BC, SELFPAY | PROVIDERS: PCP Family Medicine; Visit Provider Psychiatry & Neurology Psychiatry | DX: F33.3 Major depressive disorder, recurrent, severe with psychotic symptoms (principal) | CPT/HCPCS: 90870 ==

== ENCOUNTER 2023-11-05 07:40 | Day surgery (SDC) | payer MEDICARE, SELFPAY ==
[2023-11-05] VITALS (7 sets, daily range): BP systolic 140–173; BP diastolic 67–87; PULSE 60–72; RESP 13–16; TEMP 36.1–36.4; O2SAT 94–97; BMI 24.1
--- NOTE | 2023-11-05 08:44 | HO.ANESPROP2 ---
HPI - Anesthesia Eval Consult details Narrative: 83 yo female patient for ECT PMFSH Active Problems Active Problems: All Active Problems Major depressive disorder, recurrent severe without psychotic features (Acute) OCD (obsessive compulsive disorder) (Acute) Abnormal finding on EKG (Acute) Past Medical History Medical History OCD (obsessive compulsive disorder) Major depressive disorder, recurrent severe without psychotic features S/P ECT (electroconvulsive therapy) Family History Family History Mother CHF (congestive heart failure) Family history of problems with anesthesia: No Surgical History Surgical History No history of previous surgery History of Problems with Anesthesia: No Social History Social History Household Members: Spouse Housing: Condominium Do you presently have visiting nurse or other home services: No Patient Tobacco Use Status: Never used Tobacco service: No Sexual orientation: Straight/Heterosexual Meds Allergies Allergy/AdvReac Type Severity Reaction Status Date / Time No Known Allergies Allergy Verified 06/04/23 08:08 [No Known Allergies*] Home Medications ?Medication ?Instructions ?Recorded ?Confirmed ?Last Taken ?Type venlafaxine 150 mg 150 mg PO DAILY 06/04/23 06/04/23 06/03/23 History capsule,extended release 24 hr Exam Height,Weight and Vital Signs: Height 5 ft 3 in Weight 61.689 kg Last Vital Signs Temp 97 F 11/05/23 08:24 Pulse 60 11/05/23 08:24 Resp 16 11/05/23 08:24 BP 141/67 H 11/05/23 08:24 Pulse Ox 97 11/05/23 08:24 O2 Del Method Room Air 11/05/23 08:24 Airway Mallampati Class: II TM Dist: >3cm Neck ROM: Full Loose/Missing/Broken Teeth: No (Denies broken, loose, missing teeth) Heart: RRR Lungs: CTAB Assessment and Plan Assessment Anesthesia Assessment: Anesthesia Plan Discussed and Chart Reviewed Final Anesthetic Review Family History of Problems with Anesthesia: No History of Problems with Anesthesia: No NPO: Yes ASA Class: III Final Preanesthetic Review: No Changes in Pt Med Stat, Meds/Allgs Chart Reviewed, Consent Obtained/Reviewed and Anes Risks/Benef Reviewed Patient Risk: Intermediate Procedure Risk: Intermediate Assessment/Block/Sedation in SS: Assess/Block/Sedation-SS Anesthetic Plan Anesthetic Plan: GA Disposition: Standard PACU
--- NOTE | 2023-11-05 10:05 | MHC.SHP ---
Pre-Procedural Eval Section A - 24 Hr Update-Section A only Date of Service: 11/05/23 The patient is an INPATIENT: No Changes since office visit: Yes Patient answered all questions; No Cold of Flu in the past 2 weeks, No New Medical Problems and No Changes in Medication The patient has been examined within 24 hours of the surgical procedure. The History & Physical has been completed within 30 days and I have reviewed it.: No Section B - Complete if H&P > 30 days Chief Complaint: Major depressive disorder, recurrent, severe Details of Present Illness: recurrent depression mild st memory dysfx stable with ect monthly some ongoing worry re her with alz Relevant Social History: None Allergies: Allergies Allergy/AdvReac Type Severity Reaction Status Date / Time No Known Allergies Allergy Verified 06/04/23 08:08 [No Known Allergies*] Review of Systems Sugical H&P ROS: Negative: Cardiovascular and Respiratory and Yes, Specify: Neurological (st memory dys fx ongoing no change) and Psychiatric (feeling some anxiety) Review of Systems Comment: 141/67 Exam Surgical H&P Exam: Normal: Heart (rr no murmur ), Normal: Lungs (clear) and Normal: Neurological Plan Diagnosis/Plan: Unchanged I have reviewed the history and physical and performed a pertinent physical examination on my patient. No changes have occurred unless specified. Time Spent With Patient Time: Total time managing care of this patient today ____ minutes.
--- NOTE | 2023-11-05 10:10 | HO.ECTPROC ---
ECT Procedure Note Diagnosis/Treatment Date of Service: 11/05/23 Diagnosis: Major Depressive Disorder Previous ECT Date: 10/01/23 Treatment: Maintenance Interval Clinical Notes: Pt has been generally stable no medical changes has no psychosis or significant depressive sx some inc anxiety related to with dementia worried re the future RUL tolerated ect well stimulation RULl Time: Total time managing care of this patient today ____ minutes. ECT Settings Device: THYMATRON DGx Electrode Placement: Right Unilateral Program/Pulse Width: 0.25 Energy Percent: 15 Seizure Duration By EEG (in seconds): 46 Medications Administration General Anesthetic: Etomidate (12) Muscle Relaxant: Succinylcholine (80) Ancillary Medications Anti-emetics: Zofran - Pre ECT (4) Airway Management Airway Management: Bag Mask Ventilation Treatment Recommendations No Changes Recommended: No change Energy Percent: 15 Notes: seems stabilized by q 4 wk tx no c/o side effects could try and decrease stimulation further however no complaints of side effects and has been stable HX OF PSYCHOTIC DEPRESSION Pt Tolerated Procedure w/o Issue: Yes
== END 2023-11-05 11:12 | disposition home or self-care (01) ==
PROVIDERS: PCP Family Medicine; Visit Provider Psychiatry & Neurology Psychiatry
PROC: (CPT 90870; principal; 2023-11-05 09:30)
DX: F33.2 Major depressive disorder, recurrent severe without psychotic features (principal); F41.9 Anxiety disorder, unspecified; F42.9 Obsessive-compulsive disorder, unspecified; Z79.899 Other long term (current) drug therapy
CPT/HCPCS: 90870; J0330; J2405; J2704

== ENCOUNTER → 2023-11-05 07:40 | Outpatient (BNV) | payer MEDICARE, BC, SELFPAY | PROVIDERS: PCP Family Medicine; Visit Provider Psychiatry & Neurology Psychiatry | DX: F33.3 Major depressive disorder, recurrent, severe with psychotic symptoms (principal) | CPT/HCPCS: 90870 ==

== ENCOUNTER 2023-12-03 07:39 | Day surgery (SDC) | payer MEDICARE, BC, SELFPAY ==
[2023-12-03] VITALS (7 sets, daily range): BP systolic 125–183; BP diastolic 68–100; PULSE 71–79; RESP 14–17; TEMP 36.2–36.3; O2SAT 94–99; BMI 23.0
--- NOTE | 2023-12-03 08:30 | P.CONAN_ITS ---
[facility] Active Problems Active Problems: All Active Problems Major depressive disorder, recurrent severe without psychotic features (Acute) OCD (obsessive compulsive disorder) (Acute) Abnormal finding on EKG (Acute) Past Medical History Medical History OCD (obsessive compulsive disorder) Major depressive disorder, recurrent severe without psychotic features S/P ECT (electroconvulsive therapy) Family History Family History Mother CHF (congestive heart failure) Family history of problems with anesthesia: No Surgical History Surgical History No history of previous surgery History of Problems with Anesthesia: No Social History Social History Household Members: Spouse Housing: Condominium Do you presently have visiting nurse or other home services: No Patient Tobacco Use Status: Never used Tobacco Advance Directives: No Advance Directives Information Provided: Yes service: No Sexual orientation: Straight/Heterosexual Meds Allergies Allergy/AdvReac Type Severity Reaction Status Date / Time No Known Allergies Allergy Verified 06/04/23 08:08 [No Known Allergies*] Active Medications: Current Medications Lactated Ringer's (Lr) 1,000 mls @ 50 mls/hr IVCONT .Q20H DENISSE Home Medications ?Medication ?Instructions ?Recorded ?Confirmed ?Last Taken ?Type venlafaxine 150 mg 150 mg PO DAILY 06/04/23 06/04/23 06/03/23 History capsule,extended release 24 hr Exam Airway Mallampati Class: II TM Dist: >3cm Neck ROM: Full Heart: rrr Lungs: cta Assessment and Plan Assessment Anesthesia Assessment: Anesthesia Plan Discussed and Chart Reviewed Final Anesthetic Review Family History of Problems with Anesthesia: No History of Problems with Anesthesia: No ASA Class: III Final Preanesthetic Review: No Changes in Pt Med Stat, Meds/Allgs Chart Reviewed and Consent Obtained/Reviewed Patient Risk: Intermediate Procedure Risk: Intermediate Anesthetic Plan Anesthetic Plan: GA Disposition: Standard PACU
--- NOTE | 2023-12-03 08:51 | MHC.SHP ---
Pre-Procedural Eval Section A - 24 Hr Update-Section A only Date of Service: 12/03/23 Section B - Complete if H&P > 30 days Chief Complaint: Major depressive disorder, recurrent, severe with Details of Present Illness: pt with some obsessional worry re with alz. feels ect stabilizing Allergies: Allergies Allergy/AdvReac Type Severity Reaction Status Date / Time No Known Allergies Allergy Verified 06/04/23 08:08 [No Known Allergies*] Review of Systems Sugical H&P ROS: Negative: Cardiovascular and Respiratory and Yes, Specify: Psychiatric (anxioety preoccupation) Exam Surgical H&P Exam: Normal: Heart and Normal: Lungs Exam Comment: alet oriented anxious preoccupied Plan Diagnosis/Plan: Unchanged I have reviewed the history and physical and performed a pertinent physical examination on my patient. No changes have occurred unless specified. Time Spent With Patient Time: Total time managing care of this patient today _30___ minutes.
--- NOTE | 2023-12-03 09:16 | HO.ECTPROC ---
ECT Procedure Note Diagnosis/Treatment Date of Service: 12/03/23 Diagnosis: Major Depressive Disorder Previous ECT Date: 11/05/23 Treatment: Maintenance Interval Clinical Notes: Pt has been generally stable no medical changes has no psychosis mild depressive sx some inc anxiety related to with dementia worried re the future RUL propofofol post htn Time: Total time managing care of this patient today ____ minutes. ECT Settings Device: THYMATRON DGx Electrode Placement: Right Unilateral Program/Pulse Width: 0.25 Energy Percent: 15 Seizure Duration By EEG (in seconds): 78 Medications Administration General Anesthetic: Etomidate (12) Muscle Relaxant: Succinylcholine (80) Ancillary Medications Anti-emetics: Zofran - Pre ECT (4) Miscillaneous Medications: Propofol (30 post) Airway Management Airway Management: Bag Mask Ventilation Treatment Recommendations No Changes Recommended: No change Energy Percent: 15 Notes: monitor for dep sx sees dr guerrero outpt Pt Tolerated Procedure w/o Issue: Yes
[2023-12-03 10:29] LABS: MANUAL DIFF FLAG NO
[2023-12-03 10:40] LABS: Basophils Percent Auto 0.5 % (0-2); Eosinophils Percent Auto 0.5 % (0-4); Hematocrit 44.5 % (37.0-47.0); Hemoglobin 14.7 g/dl (12.0-16.0); Imm Gran Abs Auto 0.02 X10*3/uL (0.00-0.03); Imm Gran Pct Auto 0.3 % (0.0-0.4); Lymphocytes Absolute Auto 1.7 X10*3/uL (1.2-4.9); Lymphocytes Percent Auto 26.8 % (20-40); Mean Corpuscular Hemoglobin 30.7 pg (27.0-33.0); Mean Corpuscular Volume 92.9 fL (80.0-98.0); Mean Platelet Volume 10.9 fL (9.4-12.3); Monocytes Absolute Auto 0.4 X10*3/uL (0.1-1.2); Neutrophils Absolute Auto 4.1 x10*3/uL (2.0-8.3); Neutrophils Percent Auto 64.9 % (45-73); Platelet Count 179 X10*3/uL (160-400); Red Blood Count 4.79 X10*6/uL (4.20-5.50); Red Cell Distribution Width 12.7 % (11.0-16.0); White Blood Count 6.3 X10*3/uL (4.8-10.8)
[2023-12-03 11:05] LABS: Alanine Aminotransferase 19 U/L (0-31); Albumin Level 4.1 g/dL (3.5-5.0); Alkaline Phosphatase 64 U/L (39-117); Anion Gap 15 (12-20); Aspartate Amino Transferase 19 U/L (5-31); Bilirubin Total 0.6 mg/dL (0.0-1.0); Blood Urea Nitrogen 20 mg/dL (9-16); Calcium 9.7 mg/dL (8.4-10.2); Carbon Dioxide 25 mmol/L (22-29); Chloride 103 mmol/L (96-108); Creatinine Clr Calc Pharmacy 33.7; Estimated Glomerular Filt Rate 49; Glucose Random 124 mg/dL (60-115); Potassium 5.1 mmol/L (3.3-5.1); Sodium 138 mmol/L (135-145); Total Protein 6.2 g/dL (6.5-8.0)
[2023-12-03 11:22] LABS: TSH reflex Free T4 3.48 uIU/mL (0.32-4.0)
[2023-12-03 11:32] LABS: Folate 6.2 ng/mL (> or = 4.0); Vitamin B12 561 pg/mL (200-900)
== END 2023-12-03 10:45 | disposition home or self-care (01) ==
PROVIDERS: PCP Family Medicine; Visit Provider Psychiatry & Neurology Psychiatry
PROC: (CPT 90870; principal; 2023-12-03 09:30)
DX: F33.2 Major depressive disorder, recurrent severe without psychotic features (principal); F41.9 Anxiety disorder, unspecified; F42.9 Obsessive-compulsive disorder, unspecified; Z79.899 Other long term (current) drug therapy
CPT/HCPCS: 36415; 80053; 82607; 82746; 84443; 85025; 90870; J0330; J2405; J2704

== ENCOUNTER → 2023-12-03 07:39 | Outpatient (BNV) | payer MEDICARE, BC, SELFPAY | PROVIDERS: PCP Family Medicine; Visit Provider Psychiatry & Neurology Psychiatry | DX: F33.2 Major depressive disorder, recurrent severe without psychotic features (principal) | CPT/HCPCS: 90870 ==

== ENCOUNTER 2024-01-07 07:41 | Day surgery (SDC) | payer MEDICARE, SELFPAY ==
[2024-01-07] VITALS (9 sets, daily range): BP systolic 113–161; BP diastolic 67–89; PULSE 68–130; RESP 14–17; TEMP 35.9–36.6; O2SAT 94–99; BMI 23.0
--- NOTE | 2024-01-07 08:26 | P.CONAN_ITS ---
[facility] Active Problems Active Problems: All Active Problems Major depressive disorder, recurrent severe without psychotic features (Acute) OCD (obsessive compulsive disorder) (Acute) Abnormal finding on EKG (Acute) Past Medical History Medical History OCD (obsessive compulsive disorder) Major depressive disorder, recurrent severe without psychotic features S/P ECT (electroconvulsive therapy) Family History Family History Mother CHF (congestive heart failure) Family history of problems with anesthesia: No Surgical History Surgical History No history of previous surgery History of Problems with Anesthesia: No Social History Social History Household Members: Spouse Housing: Condominium Do you presently have visiting nurse or other home services: No Patient Tobacco Use Status: Never used Tobacco Advance Directives: No Advance Directives Information Provided: Yes service: No Sexual orientation: Straight/Heterosexual Meds Allergies Allergy/AdvReac Type Severity Reaction Status Date / Time No Known Allergies Allergy Verified 06/04/23 08:08 [No Known Allergies*] Home Medications ?Medication ?Instructions ?Recorded ?Confirmed ?Last Taken ?Type venlafaxine 150 mg 150 mg PO DAILY 06/04/23 06/04/23 06/03/23 History capsule,extended release 24 hr Exam Airway Mallampati Class: II TM Dist: >3cm Neck ROM: Full Heart: rrr Lungs: cta Assessment and Plan Assessment Anesthesia Assessment: Anesthesia Plan Discussed and Chart Reviewed Final Anesthetic Review Family History of Problems with Anesthesia: No History of Problems with Anesthesia: No NPO: Yes ASA Class: III Final Preanesthetic Review: No Changes in Pt Med Stat, Meds/Allgs Chart Reviewed and Consent Obtained/Reviewed Patient Risk: Intermediate Procedure Risk: Intermediate Anesthetic Plan Anesthetic Plan: GA Disposition: Standard PACU
[2024-01-07] MEDS: Lactated Ringers 1,000 ML 50 ML IVCONT (08:31)
--- NOTE | 2024-01-07 08:43 | MHC.SHP ---
Pre-Procedural Eval Section A - 24 Hr Update-Section A only Date of Service: 01/07/24 Section B - Complete if H&P > 30 days Chief Complaint: Major depressive disorder, recurrent, severe with Details of Present Illness: inc in depression guilt dealing with h worsening dementia Present Medications: see Short Stay Collaborative assessment Allergies: Allergies Allergy/AdvReac Type Severity Reaction Status Date / Time No Known Allergies Allergy Verified 06/04/23 08:08 [No Known Allergies*] Review of Systems Sugical H&P ROS: Negative: Cardiovascular, Respiratory and Neurological (memory) Review of Systems Comment: inc depression Exam Surgical H&P Exam: Normal: Heart and Normal: Lungs Plan Diagnosis/Plan: Unchanged I have reviewed the history and physical and performed a pertinent physical examination on my patient. No changes have occurred unless specified. 151/87 Time Spent With Patient Time: Total time managing care of this patient today ____ minutes.
--- NOTE | 2024-01-07 09:31 | HO.ECTPROC ---
ECT Procedure Note Diagnosis/Treatment Date of Service: 01/07/24 Diagnosis: Major Depressive Disorder Previous ECT Date: 12/03/23 Treatment: Maintenance Interval Clinical Notes: PATIENT SEEN PSYCHIATRIC FOLLOW-UP. Patient here for maintenance ECT treated with right unilateral has relapse with increasing depression Abilify recently increased has depressive thoughts hopelessness thought she would be better off denies active plan was offered admission discussed trying to do a mini series outpatient and if needed inpatient admission case reviewed with Dr. Butler patient's outpatient psychiatrist Time: Total time managing care of this patient today ____ minutes. ECT Settings Device: THYMATRON DGx Electrode Placement: Right Unilateral Program/Pulse Width: 0.25 Energy Percent: 200 Seizure Duration By EEG (in seconds): 46 Medications Administration General Anesthetic: Etomidate (12) Muscle Relaxant: Succinylcholine (80) Ancillary Medications Anti-emetics: Zofran - Pre ECT (4) Miscillaneous Medications: Propofol (30 plus 30 post for htn ) Airway Management Airway Management: Bag Mask Ventilation Treatment Recommendations No Changes Recommended: No change Energy Percent: 15 Notes: Case reviewed with patient and feels they can get transportation outpatient Pt Tolerated Procedure w/o Issue: Yes
== END 2024-01-07 11:10 | disposition home or self-care (01) ==
PROVIDERS: PCP Family Medicine; Visit Provider Psychiatry & Neurology Psychiatry
PROC: (CPT 90870; principal; 2024-01-07 09:30)
DX: F33.2 Major depressive disorder, recurrent severe without psychotic features (principal); F42.9 Obsessive-compulsive disorder, unspecified; Z79.899 Other long term (current) drug therapy; R94.31 Abnormal electrocardiogram [ECG] [EKG]
CPT/HCPCS: 90870; J0330; J2405; J2704

== ENCOUNTER → 2024-01-07 07:41 | Outpatient (BNV) | payer MEDICARE, BC, SELFPAY | PROVIDERS: PCP Family Medicine; Visit Provider Psychiatry & Neurology Psychiatry | DX: F33.3 Major depressive disorder, recurrent, severe with psychotic symptoms (principal) | CPT/HCPCS: 90870 ==

== ENCOUNTER 2024-01-10 06:17 | Day surgery (SDC) | payer MEDICARE, SELFPAY ==
[2024-01-10] VITALS (9 sets, daily range): BP systolic 124–159; BP diastolic 60–80; PULSE 67–82; RESP 14–18; TEMP 35.9–36.3; O2SAT 94–100; BMI 23.0
--- NOTE | 2024-01-10 06:42 | P.CONAN_ITS ---
[facility] Active Problems Active Problems: All Active Problems Major depressive disorder, recurrent severe without psychotic features (Acute) OCD (obsessive compulsive disorder) (Acute) Abnormal finding on EKG (Acute) Past Medical History Medical History OCD (obsessive compulsive disorder) Major depressive disorder, recurrent severe without psychotic features S/P ECT (electroconvulsive therapy) Family History Family History Mother CHF (congestive heart failure) Family history of problems with anesthesia: No Surgical History Surgical History No history of previous surgery History of Problems with Anesthesia: No Social History Social History Household Members: Spouse Housing: Condominium Do you presently have visiting nurse or other home services: No Patient Tobacco Use Status: Never used Tobacco Advance Directives: No Advance Directives Information Provided: Yes service: No Sexual orientation: Straight/Heterosexual Meds Allergies Allergy/AdvReac Type Severity Reaction Status Date / Time No Known Allergies Allergy Verified 06/04/23 08:08 [No Known Allergies*] Active Medications: Current Medications Lactated Ringer's (Lr) 1,000 mls @ 50 mls/hr IVCONT .Q20H DENISSE Home Medications ?Medication ?Instructions ?Recorded ?Confirmed ?Last Taken ?Type venlafaxine 150 mg 150 mg PO DAILY 06/04/23 06/04/23 06/03/23 History capsule,extended release 24 hr Exam Height,Weight and Vital Signs: Height 5 ft 3 in Weight 58.967 kg Last Vital Signs Temp 96.7 F L 01/10/24 06:40 Pulse 70 01/10/24 06:40 Resp 14 01/10/24 06:40 BP 159/80 H 01/10/24 06:40 Pulse Ox 98 01/10/24 06:40 O2 Del Method Room Air 01/10/24 06:40 Airway Mallampati Class: II TM Dist: >3cm Neck ROM: Full Heart: rrr Lungs: cta Assessment and Plan Assessment Anesthesia Assessment: Anesthesia Plan Discussed and Chart Reviewed Final Anesthetic Review Family History of Problems with Anesthesia: No History of Problems with Anesthesia: No NPO: Yes ASA Class: III Final Preanesthetic Review: No Changes in Pt Med Stat, Meds/Allgs Chart Reviewed and Consent Obtained/Reviewed Patient Risk: Intermediate Procedure Risk: Intermediate Anesthetic Plan Anesthetic Plan: GA Disposition: Standard PACU
--- NOTE | 2024-01-10 07:42 | MHC.SHP ---
Pre-Procedural Eval Section A - 24 Hr Update-Section A only Date of Service: 01/10/24 The patient is an INPATIENT: No Changes since office visit: No Cold of Flu in the past 2 weeks, No New Medical Problems, No Changes in Medication and No Patient answered all questions The patient has been examined within 24 hours of the surgical procedure. The History & Physical has been completed within 30 days and I have reviewed it.: Yes Section B - Complete if H&P > 30 days Chief Complaint: depression Allergies: Allergies Allergy/AdvReac Type Severity Reaction Status Date / Time No Known Allergies Allergy Verified 06/04/23 08:08 [No Known Allergies*] Plan I have reviewed the history and physical and performed a pertinent physical examination on my patient. No changes have occurred unless specified. Time Spent With Patient Time: Total time managing care of this patient today ____ minutes.
--- NOTE | 2024-01-10 07:54 | HO.ECTPROC ---
ECT Procedure Note Diagnosis/Treatment Date of Service: 01/10/24 Diagnosis: Major Depressive Disorder Previous ECT Date: 01/07/24 Treatment: Series (mini-series started last Wednesday) Interval Clinical Notes: The patient reported esacerbation of depression since her was diagnosed of Alzheimers. No side effects with the previous ECT. New mini-series started due to exacerbation of depression. ECT done as usual, no complications Time: Total time managing care of this patient today _30___ minutes. ECT Settings Device: THYMATRON DGx Electrode Placement: Right Unilateral Program/Pulse Width: 0.25 Energy Percent: 100 Seizure Duration By EEG (in seconds): 65 By Motor Observation (in seconds): 41 Medications Administration General Anesthetic: Etomidate (12) Muscle Relaxant: Succinylcholine (80) Ancillary Medications Anti-emetics: Zofran - Pre ECT Miscillaneous Medications: Propofol (30 after ECT) Treatment Recommendations No Changes Recommended: No change Pt Tolerated Procedure w/o Issue: Yes
== END 2024-01-10 09:42 | disposition home or self-care (01) ==
PROVIDERS: PCP Family Medicine; Visit Provider Psychiatry & Neurology Psychiatry
PROC: (CPT 90870; principal; 2024-01-10 08:00)
DX: F33.2 Major depressive disorder, recurrent severe without psychotic features (principal); F42.9 Obsessive-compulsive disorder, unspecified; Z79.899 Other long term (current) drug therapy
CPT/HCPCS: 90870; J0330; J2405; J2704

== ENCOUNTER → 2024-01-10 06:17 | Outpatient (BNV) | payer MEDICARE, BC, SELFPAY | PROVIDERS: PCP Family Medicine; Visit Provider Psychiatry & Neurology Psychiatry | DX: F33.3 Major depressive disorder, recurrent, severe with psychotic symptoms (principal) | CPT/HCPCS: 90870 ==

== ENCOUNTER 2024-01-12 06:15 | Day surgery (SDC) | payer MEDICARE, SELFPAY ==
[2024-01-12] VITALS (7 sets, daily range): BP systolic 121–133; BP diastolic 61–71; PULSE 63–72; RESP 14–17; TEMP 35.9–36.6; O2SAT 95–97; BMI 23.0
--- NOTE | 2024-01-12 06:46 | HO.ANESPROP2 ---
[facility] Active Problems Active Problems: All Active Problems Major depressive disorder, recurrent severe without psychotic features (Acute) OCD (obsessive compulsive disorder) (Acute) Abnormal finding on EKG (Acute) Past Medical History Medical History OCD (obsessive compulsive disorder) Major depressive disorder, recurrent severe without psychotic features S/P ECT (electroconvulsive therapy) Family History Family History Mother CHF (congestive heart failure) Family history of problems with anesthesia: No Surgical History Surgical History No history of previous surgery History of Problems with Anesthesia: No Social History Social History Household Members: Spouse Housing: Condominium Do you presently have visiting nurse or other home services: No Patient Tobacco Use Status: Never used Tobacco Advance Directives: No Advance Directives Information Provided: Yes service: No Sexual orientation: Straight/Heterosexual Meds Allergies Allergy/AdvReac Type Severity Reaction Status Date / Time No Known Allergies Allergy Verified 06/04/23 08:08 [No Known Allergies*] Home Medications ?Medication ?Instructions ?Recorded ?Confirmed ?Last Taken ?Type venlafaxine 150 mg 150 mg PO DAILY 06/04/23 06/04/23 06/03/23 History capsule,extended release 24 hr Exam Height,Weight and Vital Signs: Height 5 ft 3 in Weight 58.967 kg Last Vital Signs Temp 96.7 F L 01/12/24 06:31 Pulse 67 01/12/24 06:31 Resp 16 01/12/24 06:31 BP 129/64 01/12/24 06:31 Pulse Ox 96 01/12/24 06:31 O2 Del Method Room Air 01/12/24 06:31 Airway Mallampati Class: II TM Dist: >3cm Neck ROM: Full Heart: rrr Lungs: cta Assessment and Plan Assessment Anesthesia Assessment: Anesthesia Plan Discussed and Chart Reviewed Final Anesthetic Review Family History of Problems with Anesthesia: No History of Problems with Anesthesia: No NPO: Yes ASA Class: III Final Preanesthetic Review: No Changes in Pt Med Stat, Meds/Allgs Chart Reviewed and Consent Obtained/Reviewed Patient Risk: Intermediate Procedure Risk: Intermediate Anesthetic Plan Anesthetic Plan: GA Disposition: Standard PACU
[2024-01-12] MEDS: Lactated Ringers 1,000 ML 50 ML IVCONT (06:50)
--- NOTE | 2024-01-12 06:54 | MHC.SHP ---
Pre-Procedural Eval Section A - 24 Hr Update-Section A only Date of Service: 01/12/24 Section B - Complete if H&P > 30 days Chief Complaint: depression Details of Present Illness: recurrent depression Relevant Social History: None Medical History: Significant History Allergies: Allergies Allergy/AdvReac Type Severity Reaction Status Date / Time No Known Allergies Allergy Verified 06/04/23 08:08 [No Known Allergies*] Review of Systems Sugical H&P ROS: Negative: Cardiovascular and Respiratory and Yes, Specify: Psychiatric (feeling better) Exam Surgical H&P Exam: Normal: Heart and Normal: Lungs Exam Comment: 129/64 p 67 Plan Diagnosis/Plan: Unchanged I have reviewed the history and physical and performed a pertinent physical examination on my patient. No changes have occurred unless specified. Time Spent With Patient Time: Total time managing care of this patient today ____ minutes.
--- NOTE | 2024-01-12 06:57 | HO.ECTPROC ---
ECT Procedure Note Diagnosis/Treatment Date of Service: 01/12/24 Diagnosis: Major Depressive Disorder Previous ECT Date: 01/07/24 Current Treatment Number: 3 Treatment: Series (mini-series started last Wednesday) Interval Clinical Notes: The patient reported esacerbation of depression since her was diagnosed of Alzheimers. Better with ect [place] affect no c/o side effects Time: Total time managing care of this patient today ____ minutes. ECT Settings Device: THYMATRON DGx Electrode Placement: Bifrontal Program/Pulse Width: 0.25 Energy Percent: 50 Seizure Duration By EEG (in seconds): 58 Medications Administration General Anesthetic: Etomidate (12) Muscle Relaxant: Succinylcholine (80) Ancillary Medications Analgesics: Torodol - Pre ECT Anti-emetics: Zofran - Pre ECT Miscillaneous Medications: Propofol (30 after ECT) Treatment Recommendations No Changes Recommended: No change Pt Tolerated Procedure w/o Issue: Yes
== END 2024-01-12 08:24 | disposition home or self-care (01) ==
PROVIDERS: PCP Family Medicine; Visit Provider Psychiatry & Neurology Psychiatry
PROC: (CPT 90870; principal; 2024-01-12 07:30)
DX: F33.2 Major depressive disorder, recurrent severe without psychotic features (principal); F42.9 Obsessive-compulsive disorder, unspecified; Z79.899 Other long term (current) drug therapy
CPT/HCPCS: 90870; J0330; J2405; J2704

== ENCOUNTER → 2024-01-12 06:15 | Outpatient (BNV) | payer MEDICARE, BC, SELFPAY | PROVIDERS: PCP Family Medicine; Visit Provider Psychiatry & Neurology Psychiatry | DX: F33.3 Major depressive disorder, recurrent, severe with psychotic symptoms (principal) | CPT/HCPCS: 90870 ==

== ENCOUNTER 2024-01-14 06:26 | Day surgery (SDC) | payer MEDICARE, SELFPAY ==
[2024-01-14] VITALS (7 sets, daily range): BP systolic 126–145; BP diastolic 62–75; PULSE 70–75; RESP 15–16; TEMP 35.9–36.4; O2SAT 95–100; BMI 23.0
--- NOTE | 2024-01-14 06:39 | HO.ANESPROP2 ---
[facility] Active Problems Active Problems: All Active Problems Major depressive disorder, recurrent severe without psychotic features (Acute) OCD (obsessive compulsive disorder) (Acute) Abnormal finding on EKG (Acute) Past Medical History Medical History OCD (obsessive compulsive disorder) Major depressive disorder, recurrent severe without psychotic features S/P ECT (electroconvulsive therapy) Family History Family History Mother CHF (congestive heart failure) Family history of problems with anesthesia: No Surgical History Surgical History No history of previous surgery History of Problems with Anesthesia: No Social History Social History Household Members: Spouse Housing: Condominium Do you presently have visiting nurse or other home services: No Patient Tobacco Use Status: Never used Tobacco Advance Directives: No Advance Directives Information Provided: Yes service: No Sexual orientation: Straight/Heterosexual Meds Allergies Allergy/AdvReac Type Severity Reaction Status Date / Time No Known Allergies Allergy Verified 06/04/23 08:08 [No Known Allergies*] Home Medications ?Medication ?Instructions ?Recorded ?Confirmed ?Last Taken ?Type venlafaxine 150 mg 150 mg PO DAILY 06/04/23 06/04/23 06/03/23 History capsule,extended release 24 hr Exam Airway Mallampati Class: II TM Dist: >3cm Neck ROM: Full Heart: rrr Lungs: cta Assessment and Plan Assessment Anesthesia Assessment: Anesthesia Plan Discussed and Chart Reviewed Final Anesthetic Review Family History of Problems with Anesthesia: No History of Problems with Anesthesia: No NPO: Yes ASA Class: III Final Preanesthetic Review: No Changes in Pt Med Stat, Meds/Allgs Chart Reviewed and Consent Obtained/Reviewed Patient Risk: Intermediate Procedure Risk: Intermediate Anesthetic Plan Anesthetic Plan: GA Disposition: Standard PACU
[2024-01-14] MEDS: Lactated Ringers 1,000 ML 50 ML IVCONT (06:49)
--- NOTE | 2024-01-14 07:21 | MHC.SHP ---
Pre-Procedural Eval Section A - 24 Hr Update-Section A only Date of Service: 01/14/24 Section B - Complete if H&P > 30 days Chief Complaint: depression Details of Present Illness: recurrent depression feeling better Present Medications: see Short Stay Collaborative assessment History of Previous Operations: No relevant previous surgery (recurrent ect) Allergies: Allergies Allergy/AdvReac Type Severity Reaction Status Date / Time No Known Allergies Allergy Verified 06/04/23 08:08 [No Known Allergies*] Review of Systems Sugical H&P ROS: Negative: Cardiovascular and Respiratory Exam Surgical H&P Exam: Normal: Heart, Normal: Lungs (clear) and Normal: Neurological Exam Comment: much improved mood no psychosis no si 130/72 Plan Diagnosis/Plan: Unchanged I have reviewed the history and physical and performed a pertinent physical examination on my patient. No changes have occurred unless specified. Time Spent With Patient Time: Total time managing care of this patient today ____ minutes.
--- NOTE | 2024-01-14 07:29 | HO.ECTPROC ---
ECT Procedure Note Diagnosis/Treatment Date of Service: 01/14/24 Diagnosis: Major Depressive Disorder Previous ECT Date: 01/12/24 Current Treatment Number: 4 Treatment: Series (mini-series started last Wednesday) Interval Clinical Notes: PATIENT SEEMS TO HAVE REGAINED EUTHYMIA. Pleasant cooperative future oriented. Unilateral ECT completed without difficulty follow-up treatment scheduled for 1 week and will continue to taper hopefully back to eventually on 1x month treatments again Time: Total time managing care of this patient today _30___ minutes. ECT Settings Device: THYMATRON DGx Electrode Placement: Right Unilateral Program/Pulse Width: 0.25 Energy Percent: 50 Seizure Duration By EEG (in seconds): 51 Medications Administration General Anesthetic: Etomidate (12) Muscle Relaxant: Succinylcholine Ancillary Medications Analgesics: Torodol - Pre ECT Anti-emetics: Zofran - Pre ECT Miscillaneous Medications: Propofol (30 after ECT) Treatment Recommendations No Changes Recommended: No change Notes: Follow-up treatment in 1 week Pt Tolerated Procedure w/o Issue: Yes
== END 2024-01-14 08:55 | disposition home or self-care (01) ==
PROVIDERS: PCP Family Medicine; Visit Provider Psychiatry & Neurology Psychiatry
PROC: (CPT 90870; principal; 2024-01-14 07:30)
DX: F33.2 Major depressive disorder, recurrent severe without psychotic features (principal); F42.9 Obsessive-compulsive disorder, unspecified; F34.89 Other specified persistent mood disorders; Z79.899 Other long term (current) drug therapy
CPT/HCPCS: 90870; J0330; J2405; J2704

== ENCOUNTER → 2024-01-14 06:26 | Outpatient (BNV) | payer MEDICARE, BC, SELFPAY | PROVIDERS: PCP Family Medicine; Visit Provider Psychiatry & Neurology Psychiatry | DX: F33.3 Major depressive disorder, recurrent, severe with psychotic symptoms (principal) | CPT/HCPCS: 90870 ==

== ENCOUNTER 2024-01-21 06:16 | Day surgery (SDC) | payer MEDICARE, BC, SELFPAY ==
[2024-01-21] VITALS (7 sets, daily range): BP systolic 122–146; BP diastolic 60–78; PULSE 65–80; RESP 14–18; TEMP 36.1–36.4; O2SAT 94–100; BMI 23.9
--- NOTE | 2024-01-21 06:55 | HO.ANESPROP2 ---
[facility] Active Problems Active Problems: All Active Problems Major depressive disorder, recurrent severe without psychotic features (Acute) OCD (obsessive compulsive disorder) (Acute) Abnormal finding on EKG (Acute) Past Medical History Medical History OCD (obsessive compulsive disorder) Major depressive disorder, recurrent severe without psychotic features S/P ECT (electroconvulsive therapy) Family History Family History Mother CHF (congestive heart failure) Family history of problems with anesthesia: No Surgical History Surgical History No history of previous surgery History of Problems with Anesthesia: No Social History Social History Household Members: Spouse Housing: Condominium Do you presently have visiting nurse or other home services: No Patient Tobacco Use Status: Never used Tobacco Advance Directives: No Advance Directives Information Provided: Yes service: No Sexual orientation: Straight/Heterosexual Meds Allergies Allergy/AdvReac Type Severity Reaction Status Date / Time No Known Allergies Allergy Verified 06/04/23 08:08 [No Known Allergies*] Home Medications ?Medication ?Instructions ?Recorded ?Confirmed ?Last Taken ?Type venlafaxine 150 mg 150 mg PO DAILY 06/04/23 06/04/23 06/03/23 History capsule,extended release 24 hr Exam Height,Weight and Vital Signs: Height 5 ft 3 in Weight 61.235 kg Last Vital Signs Temp 97 F 01/21/24 06:41 Pulse 67 01/21/24 06:41 Resp 18 01/21/24 06:41 BP 143/78 H 01/21/24 06:41 Pulse Ox 96 01/21/24 06:41 O2 Del Method Room Air 01/21/24 06:41 Airway Mallampati Class: II TM Dist: >3cm Neck ROM: Full Heart: rrr Lungs: cta Assessment and Plan Assessment Anesthesia Assessment: Anesthesia Plan Discussed and Chart Reviewed Final Anesthetic Review Family History of Problems with Anesthesia: No History of Problems with Anesthesia: No NPO: Yes ASA Class: III Final Preanesthetic Review: No Changes in Pt Med Stat, Meds/Allgs Chart Reviewed and Consent Obtained/Reviewed Patient Risk: Intermediate Procedure Risk: Intermediate Anesthetic Plan Anesthetic Plan: GA Disposition: Standard PACU
[2024-01-21] MEDS: Lactated Ringers 1,000 ML 50 ML IVCONT (07:01)
--- NOTE | 2024-01-21 07:24 | MHC.SHP ---
Pre-Procedural Eval Section A - 24 Hr Update-Section A only Date of Service: 01/21/24 The patient is an INPATIENT: No Section B - Complete if H&P > 30 days Chief Complaint: depression Details of Present Illness: hx of recurrent depression Relevant Family History (Specify if Yes): Yes Relevant Social History: None Present Medications: see Short Stay Collaborative assessment Medical History: Significant History History of Previous Operations: No relevant previous surgery (ect) Allergies: Allergies Allergy/AdvReac Type Severity Reaction Status Date / Time No Known Allergies Allergy Verified 06/04/23 08:08 [No Known Allergies*] Review of Systems Sugical H&P ROS: Negative: Cardiovascular and Respiratory and Yes, Specify: Neurological (some memory difficulties ) Exam Surgical H&P Exam: Normal: Heart and Normal: Lungs Exam Comment: 143/78 Plan Diagnosis/Plan: Unchanged I have reviewed the history and physical and performed a pertinent physical examination on my patient. No changes have occurred unless specified. Time Spent With Patient Time: Total time managing care of this patient today ____ minutes.
--- NOTE | 2024-01-21 07:27 | HO.ECTPROC ---
ECT Procedure Note Diagnosis/Treatment Date of Service: 01/21/24 Diagnosis: Major Depressive Disorder Previous ECT Date: 01/14/24 Treatment: Series (mini-series started last Wednesday) Interval Clinical Notes: . Pleasant cooperative future oriented. Unilateral ECT completed without difficulty follow-up treatment scheduled for 1 week and will continue to taper hopefully back to eventually on 1x month treatments again .Tolerated tx without difficulty Time: Total time managing care of this patient today ____ minutes. ECT Settings Device: THYMATRON DGx Electrode Placement: Right Unilateral Program/Pulse Width: 0.25 Energy Percent: 50 Seizure Duration By EEG (in seconds): 51 Medications Administration General Anesthetic: Etomidate (12) Muscle Relaxant: Succinylcholine Ancillary Medications Anti-emetics: Zofran - Pre ECT Miscillaneous Medications: Propofol (30 after ECT) Treatment Recommendations No Changes Recommended: No change Notes: Follow-up treatment in 1 week Pt Tolerated Procedure w/o Issue: Yes
== END 2024-01-21 09:05 | disposition home or self-care (01) ==
PROVIDERS: PCP Family Medicine; Visit Provider Psychiatry & Neurology Psychiatry
PROC: (CPT 90870; principal; 2024-01-21 07:30)
DX: F33.2 Major depressive disorder, recurrent severe without psychotic features (principal); F34.9 Persistent mood [affective] disorder, unspecified; F42.9 Obsessive-compulsive disorder, unspecified; Z79.899 Other long term (current) drug therapy
CPT/HCPCS: 90870; J0330; J2405; J2704

== ENCOUNTER → 2024-01-21 06:16 | Outpatient (BNV) | payer MEDICARE, BC, SELFPAY | PROVIDERS: PCP Family Medicine; Visit Provider Psychiatry & Neurology Psychiatry | DX: F33.2 Major depressive disorder, recurrent severe without psychotic features (principal) | CPT/HCPCS: 90870 ==

== ENCOUNTER 2024-01-28 06:13 | Day surgery (SDC) | payer MEDICARE, BC, SELFPAY ==
[2024-01-28] VITALS (8 sets, daily range): BP systolic 122–148; BP diastolic 62–74; PULSE 62–67; RESP 16; TEMP 35.9–36.3; O2SAT 94–100; BMI 23.7
--- NOTE | 2024-01-28 06:36 | P.CONAN_ITS ---
FORMERLY [facility], [facility]–1983 Active Problems Active Problems: All Active Problems Major depressive disorder, recurrent severe without psychotic features (Acute) OCD (obsessive compulsive disorder) (Acute) Abnormal finding on EKG (Acute) Past Medical History Medical History OCD (obsessive compulsive disorder) Major depressive disorder, recurrent severe without psychotic features S/P ECT (electroconvulsive therapy) Family History Family History Mother CHF (congestive heart failure) Family history of problems with anesthesia: No Surgical History Surgical History No history of previous surgery History of Problems with Anesthesia: No Social History Social History Household Members: Spouse Housing: Condominium Do you presently have visiting nurse or other home services: No Patient Tobacco Use Status: Never used Tobacco Advance Directives: No Advance Directives Information Provided: Yes service: No Sexual orientation: Straight/Heterosexual Meds Allergies Allergy/AdvReac Type Severity Reaction Status Date / Time No Known Allergies Allergy Verified 06/04/23 08:08 [No Known Allergies*] Home Medications ?Medication ?Instructions ?Recorded ?Confirmed ?Last Taken ?Type venlafaxine 150 mg 150 mg PO DAILY 06/04/23 06/04/23 06/03/23 History capsule,extended release 24 hr Exam Height,Weight and Vital Signs: Height 5 ft 3 in Weight 60.781 kg Last Vital Signs Temp 96.6 F L 01/28/24 06:32 Pulse 62 01/28/24 06:32 Resp 16 01/28/24 06:32 BP 133/64 01/28/24 06:32 Pulse Ox 97 01/28/24 06:32 O2 Del Method Room Air 01/28/24 06:32 Airway Mallampati Class: II TM Dist: >3cm Neck ROM: Full Heart: rrr Lungs: cta Assessment and Plan Assessment Anesthesia Assessment: Anesthesia Plan Discussed and Chart Reviewed Final Anesthetic Review Family History of Problems with Anesthesia: No History of Problems with Anesthesia: No NPO: Yes ASA Class: III Final Preanesthetic Review: No Changes in Pt Med Stat, Meds/Allgs Chart Reviewed and Consent Obtained/Reviewed Patient Risk: Intermediate Procedure Risk: Intermediate Anesthetic Plan Anesthetic Plan: GA Disposition: Standard PACU
[2024-01-28] MEDS: Lactated Ringers 1,000 ML 50 ML IVCONT (06:47)
--- NOTE | 2024-01-28 07:07 | MHC.SHP ---
Pre-Procedural Eval Section A - 24 Hr Update-Section A only Date of Service: 01/28/24 The patient is an INPATIENT: No Section B - Complete if H&P > 30 days Chief Complaint: depression Details of Present Illness: hx of recurrent depression Relevant Family History (Specify if Yes): Yes Relevant Social History: None Present Medications: see Short Stay Collaborative assessment Medical History: Significant History History of Previous Operations: No relevant previous surgery (ect) Allergies: Allergies Allergy/AdvReac Type Severity Reaction Status Date / Time No Known Allergies Allergy Verified 06/04/23 08:08 [No Known Allergies*] Review of Systems Sugical H&P ROS: Negative: Cardiovascular, Respiratory and Neurological Exam Surgical H&P Exam: Normal: Heart and Normal: Lungs Exam Comment: 133/64 Plan Diagnosis/Plan: Unchanged I have reviewed the history and physical and performed a pertinent physical examination on my patient. No changes have occurred unless specified. Time Spent With Patient Time: Total time managing care of this patient today ____ minutes.
--- NOTE | 2024-01-28 07:08 | HO.ECTPROC ---
ECT Procedure Note Diagnosis/Treatment Date of Service: 01/28/24 Diagnosis: Major Depressive Disorder Treatment: Series Interval Clinical Notes: Patient in continuation ECT has been feeling much more normal. No complaints of ongoing significant side effects post ECT Time: Total time managing care of this patient today ____ minutes. ECT Settings Device: THYMATRON DGx Electrode Placement: Right Unilateral Program/Pulse Width: 0.25 Energy Percent: 25 Seizure Duration By EEG (in seconds): 55 Medications Administration General Anesthetic: Etomidate (12) Muscle Relaxant: Succinylcholine (80) Ancillary Medications Anti-emetics: Zofran - Pre ECT Miscillaneous Medications: Propofol Airway Management Airway Management: Bag Mask Ventilation Treatment Recommendations No Changes Recommended: No change Notes: f/u 3 wks Pt Tolerated Procedure w/o Issue: Yes
== END 2024-01-28 10:40 | disposition home or self-care (01) ==
PROVIDERS: PCP Family Medicine; Visit Provider Psychiatry & Neurology Psychiatry
PROC: (CPT 90870; principal; 2024-01-28 07:30)
DX: F33.2 Major depressive disorder, recurrent severe without psychotic features (principal); F42.9 Obsessive-compulsive disorder, unspecified; Z79.899 Other long term (current) drug therapy
CPT/HCPCS: 90870; J0330; J2405; J2704

== ENCOUNTER → 2024-01-28 06:13 | Outpatient (BNV) | payer MEDICARE, BC, SELFPAY | PROVIDERS: PCP Family Medicine; Visit Provider Psychiatry & Neurology Psychiatry | DX: F33.2 Major depressive disorder, recurrent severe without psychotic features (principal) | CPT/HCPCS: 90870 ==

== ENCOUNTER → 2024-02-04 07:39 | Day surgery (SDC) | payer MEDICARE, SELFPAY | LOC: HO.SSS 07:45 | PROVIDERS: PCP Family Medicine; Visit Provider Psychiatry & Neurology Psychiatry | DX: F33.2 Major depressive disorder, recurrent severe without psychotic features (principal); Z53.8 Procedure and treatment not carried out for other reasons ==

== ENCOUNTER 2024-02-18 06:09 | Day surgery (SDC) | payer MEDICARE, SELFPAY ==
[2024-02-18] VITALS (7 sets, daily range): BP systolic 142–162; BP diastolic 69–86; PULSE 62–80; RESP 18; TEMP 36.2–36.6; O2SAT 95–100; BMI 23.0
--- NOTE | 2024-02-18 07:05 | HO.ANESPROP2 ---
[facility] Active Problems Active Problems: All Active Problems Major depressive disorder, recurrent severe without psychotic features (Acute) OCD (obsessive compulsive disorder) (Acute) Abnormal finding on EKG (Acute) Past Medical History Medical History OCD (obsessive compulsive disorder) Major depressive disorder, recurrent severe without psychotic features S/P ECT (electroconvulsive therapy) Family History Family History Mother CHF (congestive heart failure) Family history of problems with anesthesia: No Surgical History Surgical History No history of previous surgery History of Problems with Anesthesia: No Social History Social History Household Members: Spouse Housing: Condominium Do you presently have visiting nurse or other home services: No Patient Tobacco Use Status: Never used Tobacco Are you DNR?: No Advance Directives: No Advance Directives Information Provided: Yes Nutrition Risks: No Nutritional Risk service: No Sexual orientation: Straight/Heterosexual Meds Allergies Allergy/AdvReac Type Severity Reaction Status Date / Time No Known Allergies Allergy Verified 06/04/23 08:08 [No Known Allergies*] Home Medications ?Medication ?Instructions ?Recorded ?Confirmed ?Last Taken ?Type venlafaxine 150 mg 150 mg PO DAILY 06/04/23 06/04/23 06/03/23 History capsule,extended release 24 hr Exam Height,Weight and Vital Signs: Height 5 ft 3 in Weight 58.967 kg Last Vital Signs Temp 97.1 F 02/18/24 06:34 Pulse 62 02/18/24 06:34 Resp 18 02/18/24 06:34 BP 150/69 H 02/18/24 06:34 Pulse Ox 96 02/18/24 06:34 O2 Del Method Room Air 02/18/24 06:34 Airway Mallampati Class: II TM Dist: >3cm Neck ROM: Full Loose/Missing/Broken Teeth: No Heart: RRR Lungs: CTA Assessment and Plan Assessment Anesthesia Assessment: Anesthesia Plan Discussed and Chart Reviewed Final Anesthetic Review Family History of Problems with Anesthesia: No History of Problems with Anesthesia: No NPO: Yes ASA Class: II Final Preanesthetic Review: Meds/Allgs Chart Reviewed, Consent Obtained/Reviewed and Anes Risks/Benef Reviewed Patient Risk: Low Procedure Risk: Intermediate Anesthetic Plan Anesthetic Plan: GA Disposition: Standard PACU
--- NOTE | 2024-02-18 07:06 | MHC.SHP ---
Pre-Procedural Eval Section A - 24 Hr Update-Section A only Date of Service: 02/18/24 The patient is an INPATIENT: No Changes since office visit: Yes Patient answered all questions; No Cold of Flu in the past 2 weeks, No New Medical Problems and No Changes in Medication Section B - Complete if H&P > 30 days Chief Complaint: depression Details of Present Illness: Mood stable no new medical comcerns Allergies: Allergies Allergy/AdvReac Type Severity Reaction Status Date / Time No Known Allergies Allergy Verified 06/04/23 08:08 [No Known Allergies*] Review of Systems Sugical H&P ROS: Negative: Cardiovascular, Respiratory, Neurological and Psychiatric Exam Surgical H&P Exam: Not Evaluated: Heart, Not Evaluated: Lungs and Not Evaluated: Neurological Plan Diagnosis/Plan: Unchanged I have reviewed the history and physical and performed a pertinent physical examination on my patient. No changes have occurred unless specified. Time Spent With Patient Time: Total time managing care of this patient today ____ minutes.
--- NOTE | 2024-02-18 07:07 | HO.ECTPROC ---
ECT Procedure Note Diagnosis/Treatment Date of Service: 02/18/24 Diagnosis: Major Depressive Disorder Current Treatment Number: 6 Treatment: Series Interval Clinical Notes: pt doingh well stable Time: Total time managing care of this patient today ____ minutes. ECT Settings Device: THYMATRON DGx Electrode Placement: Right Unilateral Program/Pulse Width: 0.25 Energy Percent: 25 Seizure Duration By EEG (in seconds): 60 Medications Administration General Anesthetic: Etomidate (12) Muscle Relaxant: Succinylcholine (80) Ancillary Medications Anti-emetics: Zofran - Pre ECT Miscillaneous Medications: Propofol (30) Airway Management Airway Management: Bag Mask Ventilation Treatment Recommendations No Changes Recommended: No change Electrode Placement: Right Unilateral Notes: f/u 6 wks Pt Tolerated Procedure w/o Issue: Yes
== END 2024-02-18 08:53 | disposition home or self-care (01) ==
PROVIDERS: PCP Family Medicine; Visit Provider Psychiatry & Neurology Psychiatry
PROC: (CPT 90870; principal; 2024-02-18 07:00)
DX: F33.2 Major depressive disorder, recurrent severe without psychotic features (principal); F42.9 Obsessive-compulsive disorder, unspecified; Z79.899 Other long term (current) drug therapy
CPT/HCPCS: 90870; J0330; J2405; J2704

== ENCOUNTER → 2024-02-18 06:09 | Outpatient (BNV) | payer MEDICARE, BC, SELFPAY | PROVIDERS: PCP Family Medicine; Visit Provider Psychiatry & Neurology Psychiatry | DX: F33.3 Major depressive disorder, recurrent, severe with psychotic symptoms (principal) | CPT/HCPCS: 90870 ==

== ENCOUNTER 2024-03-03 07:36 | Day surgery (SDC) | payer MEDICARE, SELFPAY ==
[2024-03-03] VITALS (7 sets, daily range): BP systolic 111–140; BP diastolic 62–73; PULSE 62–69; RESP 14–18; TEMP 36.2–36.4; O2SAT 93–100; BMI 23.0
--- NOTE | 2024-03-03 08:34 | P.CONAN_ITS ---
[facility] Active Problems Active Problems: All Active Problems Major depressive disorder, recurrent severe without psychotic features (Acute) OCD (obsessive compulsive disorder) (Acute) Abnormal finding on EKG (Acute) Past Medical History Medical History OCD (obsessive compulsive disorder) Major depressive disorder, recurrent severe without psychotic features S/P ECT (electroconvulsive therapy) Family History Family History Mother CHF (congestive heart failure) Family history of problems with anesthesia: No Surgical History Surgical History No history of previous surgery History of Problems with Anesthesia: No Social History Social History Household Members: Spouse Housing: Condominium Do you presently have visiting nurse or other home services: No Patient Tobacco Use Status: Never used Tobacco Advance Directives: No Advance Directives Information Provided: Yes service: No Sexual orientation: Straight/Heterosexual Meds Allergies Allergy/AdvReac Type Severity Reaction Status Date / Time No Known Allergies Allergy Verified 06/04/23 08:08 [No Known Allergies*] Active Medications: Current Medications Lactated Ringer's (Lr) 1,000 mls @ 50 mls/hr IVCONT .Q20H [facility] Home Medications ?Medication ?Instructions ?Recorded ?Confirmed ?Last Taken ?Type venlafaxine 150 mg 150 mg PO DAILY 06/04/23 06/04/23 06/03/23 History capsule,extended release 24 hr Exam Airway Mallampati Class: II TM Dist: >3cm Neck ROM: Full Heart: rrr Lungs: cta Assessment and Plan Assessment Anesthesia Assessment: Anesthesia Plan Discussed and Chart Reviewed Final Anesthetic Review Family History of Problems with Anesthesia: No History of Problems with Anesthesia: No NPO: Yes ASA Class: III Final Preanesthetic Review: No Changes in Pt Med Stat, Meds/Allgs Chart Reviewed and Consent Obtained/Reviewed Patient Risk: Intermediate Procedure Risk: Intermediate Anesthetic Plan Anesthetic Plan: GA Disposition: Standard PACU
--- NOTE | 2024-03-03 09:14 | MHC.SHP ---
Pre-Procedural Eval Section A - 24 Hr Update-Section A only Date of Service: 03/03/24 The patient is an INPATIENT: No Changes since office visit: Yes Patient answered all questions; No Cold of Flu in the past 2 weeks, No New Medical Problems and No Changes in Medication Section B - Complete if H&P > 30 days Chief Complaint: depression Details of Present Illness: Mood stable no new medical comcerns stable with maint ect Relevant Social History: None Allergies: Allergies Allergy/AdvReac Type Severity Reaction Status Date / Time No Known Allergies Allergy Verified 06/04/23 08:08 [No Known Allergies*] Review of Systems Sugical H&P ROS: Negative: Cardiovascular, Respiratory, Neurological and Psychiatric Exam Surgical H&P Exam: Normal: Heart, Normal: Lungs and Normal: Neurological Plan Diagnosis/Plan: Unchanged I have reviewed the history and physical and performed a pertinent physical examination on my patient. No changes have occurred unless specified. Time Spent With Patient Time: Total time managing care of this patient today ____ minutes.
--- NOTE | 2024-03-03 09:15 | HO.ECTPROC ---
ECT Procedure Note Diagnosis/Treatment Date of Service: 03/03/24 Diagnosis: Major Depressive Disorder Treatment: Maintenance and Series Interval Clinical Notes: pt doing well stable will do q 4 wks no c/o cognitive side effects Time: Total time managing care of this patient today ____ minutes. ECT Settings Device: THYMATRON DGx Electrode Placement: Right Unilateral Program/Pulse Width: 0.25 Energy Percent: 25 Seizure Duration By EEG (in seconds): 73 Medications Administration General Anesthetic: Etomidate (12) Muscle Relaxant: Succinylcholine (80) Ancillary Medications Anti-emetics: Zofran - Pre ECT Miscillaneous Medications: Propofol (30) Airway Management Airway Management: Bag Mask Ventilation Treatment Recommendations Electrode Placement: Right Unilateral Energy Percent: 20 Pt Tolerated Procedure w/o Issue: Yes
--- NOTE | 2024-03-03 10:14 | HO.ECTPROC ---
ECT Procedure Note Diagnosis/Treatment Date of Service: 03/03/24 Diagnosis: Major Depressive Disorder Treatment: Maintenance Interval Clinical Notes: pt has generally been feeling well but felt it best to return to monthly ect tx Time: Total time managing care of this patient today ____ minutes. ECT Settings Device: THYMATRON DGx Electrode Placement: Right Unilateral Program/Pulse Width: 0.25 Energy Percent: 25 Seizure Duration By EEG (in seconds): 61 Medications Administration General Anesthetic: Etomidate (12) Muscle Relaxant: Succinylcholine (80) Ancillary Medications Anti-emetics: Zofran - Pre ECT Miscillaneous Medications: Propofol (30) Airway Management Airway Management: Bag Mask Ventilation Treatment Recommendations Electrode Placement: Right Unilateral Energy Percent: 20 Notes: f/u 4 weeks Pt Tolerated Procedure w/o Issue: Yes
== END 2024-03-03 10:36 | disposition home or self-care (01) ==
PROVIDERS: PCP Family Medicine; Visit Provider Psychiatry & Neurology Psychiatry
PROC: (CPT 90870; principal; 2024-03-03 10:00)
DX: F32.9 Major depressive disorder, single episode, unspecified (principal)
CPT/HCPCS: 90870; J0330; J2405; J2704

== ENCOUNTER → 2024-03-03 07:36 | Outpatient (BNV) | payer MEDICARE, BC, SELFPAY | PROVIDERS: PCP Family Medicine; Visit Provider Psychiatry & Neurology Psychiatry | DX: F33.3 Major depressive disorder, recurrent, severe with psychotic symptoms (principal) | CPT/HCPCS: 90870 ==

== ENCOUNTER 2024-04-14 05:41 | Day surgery (SDC) | payer MEDICARE, SELFPAY ==
[2024-04-14] VITALS (8 sets, daily range): BP systolic 107–152; BP diastolic 55–79; PULSE 65–78; RESP 14–17; TEMP 35.9–36.3; O2SAT 94–98; BMI 24.8
--- NOTE | 2024-04-14 07:00 | HO.ANESPROP2 ---
HPI - Anesthesia Eval Consult details Narrative: 83 yo female patient for ECT PMF[facility] Active Problems Active Problems: All Active Problems Major depressive disorder, recurrent severe without psychotic features (Acute) OCD (obsessive compulsive disorder) (Acute) Abnormal finding on EKG (Acute) Past Medical History Medical History OCD (obsessive compulsive disorder) Major depressive disorder, recurrent severe without psychotic features S/P ECT (electroconvulsive therapy) Family History Family History Mother CHF (congestive heart failure) Family history of problems with anesthesia: No Surgical History Surgical History No history of previous surgery History of Problems with Anesthesia: No Social History Social History Household Members: Spouse Housing: Condominium Do you presently have visiting nurse or other home services: No Patient Tobacco Use Status: Never used Tobacco Advance Directives: No Advance Directives Information Provided: Yes service: No Sexual orientation: Straight/Heterosexual Meds Allergies Allergy/AdvReac Type Severity Reaction Status Date / Time No Known Allergies Allergy Verified 06/04/23 08:08 [No Known Allergies*] Home Medications ?Medication ?Instructions ?Recorded ?Confirmed ?Last Taken ?Type venlafaxine 150 mg 150 mg PO DAILY 06/04/23 06/04/23 06/03/23 History capsule,extended release 24 hr Exam Height,Weight and Vital Signs: Height 5 ft 3 in Weight 63.503 kg Last Vital Signs Temp 96.6 F L 04/14/24 06:42 Pulse 65 04/14/24 06:42 Resp 16 04/14/24 06:42 BP 141/77 H 04/14/24 06:42 Pulse Ox 97 04/14/24 06:42 O2 Del Method Room Air 04/14/24 06:42 Airway Mallampati Class: II TM Dist: >3cm Neck ROM: Full Loose/Missing/Broken Teeth: No (Denies broken, loose, missing teeth) Heart: RRR Lungs: CTAB Assessment and Plan Assessment Anesthesia Assessment: Anesthesia Plan Discussed and Chart Reviewed Final Anesthetic Review Family History of Problems with Anesthesia: No History of Problems with Anesthesia: No NPO: Yes ASA Class: III Final Preanesthetic Review: No Changes in Pt Med Stat, Meds/Allgs Chart Reviewed, Consent Obtained/Reviewed and Anes Risks/Benef Reviewed Patient Risk: Intermediate Procedure Risk: Intermediate Anesthetic Plan Anesthetic Plan: GA Disposition: Standard PACU
--- NOTE | 2024-04-14 07:07 | MHC.SHP ---
Pre-Procedural Eval Section A - 24 Hr Update-Section A only Date of Service: 04/14/24 The patient is an INPATIENT: No Changes since office visit: No Cold of Flu in the past 2 weeks, No New Medical Problems, No Changes in Medication and No Patient answered all questions The patient has been examined within 24 hours of the surgical procedure. The History & Physical has been completed within 30 days and I have reviewed it.: Yes Section B - Complete if H&P > 30 days Chief Complaint: depression Details of Present Illness: Hx of depression, stable on ECT Relevant Family History (Specify if Yes): No Relevant Social History: None Present Medications: see Short Stay Collaborative assessment Medical History: No relevant PMH History of Previous Operations: No relevant previous surgery Allergies: Allergies Allergy/AdvReac Type Severity Reaction Status Date / Time No Known Allergies Allergy Verified 06/04/23 08:08 [No Known Allergies*] Review of Systems Sugical H&P ROS: Negative: Constitution, Cardiovascular, Respiratory, Neurological, Psychiatric, Hem-Onc, Allergic/Immunologic, Gastrointestinal, Genitourinary, Musculoskeletal, Integumentary, Endocrine and Eyes/Ears/Nose/Throat Exam Surgical H&P Exam: Normal: HEENT, Normal: Heart, Normal: Lungs, Normal: Extremities, Normal: Abdomen, Normal: Skin and Normal: Neurological Plan Diagnosis/Plan: Unchanged I have reviewed the history and physical and performed a pertinent physical examination on my patient. No changes have occurred unless specified. Time Spent With Patient Time: Total time managing care of this patient today _15___ minutes.
[2024-04-14] MEDS: Lactated Ringers 1,000 ML 50 ML IVCONT (07:14)
--- NOTE | 2024-04-14 07:24 | HO.ECTPROC ---
ECT Procedure Note Diagnosis/Treatment Date of Service: 04/14/24 Diagnosis: Major Depressive Disorder Treatment: Maintenance Interval Clinical Notes: The patient reported no changes on her mental status, stable. No side effects with the previous ECT. ECT done with a lower 20% at 0.25, long seizure but stopped by itself. No complications. Time: Total time managing care of this patient today _30___ minutes. ECT Settings Device: THYMATRON DGx Electrode Placement: Right Unilateral Program/Pulse Width: 0.25 Energy Percent: 20 Seizure Duration By EEG (in seconds): 73 By Motor Observation (in seconds): 0 Medications Administration General Anesthetic: Etomidate (12) Muscle Relaxant: Succinylcholine (80) Ancillary Medications Miscillaneous Medications: Propofol Airway Management Airway Management: Bag Mask Ventilation Treatment Recommendations No Changes Recommended: No change Pt Tolerated Procedure w/o Issue: Yes
== END 2024-04-14 08:49 | disposition home or self-care (01) ==
PROVIDERS: PCP Family Medicine; Visit Provider Psychiatry & Neurology Psychiatry
PROC: (CPT 90870; principal; 2024-04-14 08:00)
DX: F33.2 Major depressive disorder, recurrent severe without psychotic features (principal); F42.9 Obsessive-compulsive disorder, unspecified; R94.31 Abnormal electrocardiogram [ECG] [EKG]; Z79.899 Other long term (current) drug therapy
CPT/HCPCS: 90870; J0330; J2405; J2704

== ENCOUNTER → 2024-04-14 05:41 | Outpatient (BNV) | payer MEDICARE, BC, SELFPAY | PROVIDERS: PCP Family Medicine; Visit Provider Psychiatry & Neurology Psychiatry | DX: F33.3 Major depressive disorder, recurrent, severe with psychotic symptoms (principal) | CPT/HCPCS: 90870 ==

== ENCOUNTER 2024-05-19 05:59 | Day surgery (SDC) | payer MEDICARE, SELFPAY ==
[2024-05-19] VITALS (7 sets, daily range): BP systolic 112–158; BP diastolic 55–73; PULSE 67–77; RESP 15–16; TEMP 36.1–36.5; O2SAT 94–100; BMI 24.8
[2024-05-19] MEDS: Lactated Ringers 1,000 ML 100 ML IVCONT (06:46)
--- NOTE | 2024-05-19 06:51 | P.CONAN_ITS ---
FORM[facility]LY [facility] Active Problems Active Problems: All Active Problems Major depressive disorder, recurrent severe without psychotic features (Acute) OCD (obsessive compulsive disorder) (Acute) Abnormal finding on EKG (Acute) Past Medical History Medical History OCD (obsessive compulsive disorder) Major depressive disorder, recurrent severe without psychotic features S/P ECT (electroconvulsive therapy) Family History Family History Mother CHF (congestive heart failure) Family history of problems with anesthesia: No Surgical History Surgical History No history of previous surgery History of Problems with Anesthesia: No Social History Social History Household Members: Spouse Housing: Condominium Do you presently have visiting nurse or other home services: No Patient Tobacco Use Status: Never used Tobacco Advance Directives: No Advance Directives Information Provided: Yes service: No Sexual orientation: Straight/Heterosexual Meds Allergies Allergy/AdvReac Type Severity Reaction Status Date / Time No Known Allergies Allergy Verified 06/04/23 08:08 [No Known Allergies*] Active Medications: Current Medications Lactated Ringer's (Lr) 1,000 mls @ 100 mls/hr IVCONT .Q10H [facility] Last Admin: 05/19/24 06:46 Dose: 100 mls/hr Lactated Ringer's (Lr) 1,000 mls @ 50 mls/hr IVCONT .Q20H [facility] Naloxone HCl (Naloxone Hcl 0.4 Mg/Ml Vial) 0.04 mg IVPUSH Q5M PRN PRN Reason: Excessive sedation or RR < 8 Home Medications ?Medication ?Instructions ?Recorded ?Confirmed ?Last Taken ?Type venlafaxine 150 mg 150 mg PO DAILY 06/04/23 06/04/23 06/03/23 History capsule,extended release 24 hr Exam Height,Weight and Vital Signs: Height 5 ft 3 in Weight 63.503 kg Last Vital Signs Temp 97 F 05/19/24 06:30 Pulse 70 05/19/24 06:30 Resp 16 05/19/24 06:30 BP 158/73 H 05/19/24 06:30 Pulse Ox 97 05/19/24 06:30 O2 Del Method Room Air 05/19/24 06:30 Airway Mallampati Class: II TM Dist: >3cm Neck ROM: Full Heart: rrr Lungs: cta Assessment and Plan Assessment Anesthesia Assessment: Anesthesia Plan Discussed and Chart Reviewed Final Anesthetic Review Family History of Problems with Anesthesia: No History of Problems with Anesthesia: No NPO: Yes ASA Class: III Final Preanesthetic Review: No Changes in Pt Med Stat, Meds/Allgs Chart Reviewed and Consent Obtained/Reviewed Patient Risk: Intermediate Procedure Risk: Intermediate Anesthetic Plan Anesthetic Plan: GA Disposition: Standard PACU
--- NOTE | 2024-05-19 07:09 | MHC.SHP ---
Pre-Procedural Eval Section A - 24 Hr Update-Section A only Date of Service: 05/19/24 Section B - Complete if H&P > 30 days Chief Complaint: depression Details of Present Illness: recurrent dep recent ankle fx clear sensorium Allergies: Allergies Allergy/AdvReac Type Severity Reaction Status Date / Time No Known Allergies Allergy Verified 06/04/23 08:08 [No Known Allergies*] Review of Systems Sugical H&P ROS: Negative: Cardiovascular and Respiratory and Yes, Specify: Neurological (some st mememory) Exam Surgical H&P Exam: Normal: Heart and Normal: Lungs Exam Comment: 158/73 p 70 Plan Diagnosis/Plan: Unchanged I have reviewed the history and physical and performed a pertinent physical examination on my patient. No changes have occurred unless specified. Time Spent With Patient Time: Total time managing care of this patient today ____ minutes.
--- NOTE | 2024-05-19 07:10 | HO.ECTPROC ---
ECT Procedure Note Diagnosis/Treatment Date of Service: 05/19/24 Diagnosis: Major Depressive Disorder Previous ECT Date: 04/14/24 Treatment: Maintenance Interval Clinical Notes: The patient reported no changes on her mental status doing ok had recent ankle fx h with progressive dementia No side effects with the previous ECT. ECT done with a lower 20% at 0.25, long seizure but stopped by itself. No complications. Time: Total time managing care of this patient today 30____ minutes. ECT Settings Device: THYMATRON DGx Electrode Placement: Right Unilateral Program/Pulse Width: 0.25 Energy Percent: 20 Seizure Duration By EEG (in seconds): 81 Medications Administration General Anesthetic: Etomidate (12) Muscle Relaxant: Succinylcholine (80) Ancillary Medications Miscillaneous Medications: Propofol Airway Management Airway Management: Bag Mask Ventilation Treatment Recommendations No Changes Recommended: No change Notes: f/u 4 wks Pt Tolerated Procedure w/o Issue: Yes
== END 2024-05-19 09:13 | disposition home or self-care (01) ==
PROVIDERS: PCP Family Medicine; Visit Provider Psychiatry & Neurology Psychiatry
PROC: (CPT 90870; principal; 2024-05-19 07:00)
DX: F33.2 Major depressive disorder, recurrent severe without psychotic features (principal)
CPT/HCPCS: 90870; J0330; J2405; J2704

== ENCOUNTER → 2024-05-19 05:59 | Outpatient (BNV) | payer MEDICARE, SELFPAY | PROVIDERS: PCP Family Medicine; Visit Provider Psychiatry & Neurology Psychiatry | DX: F33.2 Major depressive disorder, recurrent severe without psychotic features (principal) | CPT/HCPCS: 90870 ==

== ENCOUNTER 2024-05-26 20:41 | Inpatient (IN) | payer MEDICARE, SELFPAY ==
--- NOTE | ~2024-05-26 | XR_ITS ---
EXAMINATION: XR ANKLE, LEFT CLINICAL INFORMATION: Left ankle fracture. COMPARISON: None available. TECHNIQUE: AP, lateral, and mortise views of the left ankle. FINDINGS: Medial and lateral malleolar orthopedic hardware without evidence of complication. No hardware fracture or perihardware lucency to suggest loosening or infection. There appear to be healing distal medial and lateral malleolar fractures. No acute fracture or dislocation. The ankle mortise is maintained. No joint space narrowing or marginal osteophytes. No osseous erosion. Small tibiotalar joint effusion. Circumferential soft tissue swelling. XR/XR ankle LT min 3V IMPRESSION: 1. Medial and lateral malleolar orthopedic hardware without evidence of complication. 2. Healing medial and lateral malleolar fractures. 3. Circumferential soft tissue swelling and small tibiotalar joint effusion. Electronically signed by: Chris Canela MD 05/29/2024 01:24 PM AGGIE
[2024-05-26 20:47] VITALS: BP 133/78; PULSE 80; RESP 18; TEMP 37; O2SAT 95; BMI 24.9
--- NOTE | 2024-05-26 21:35 | MHC.CARE ---
Pt will be assessed by the CARE team after she has been referred and medically cleared.
[2024-05-26 23:00] VITALS: BP 147/70; PULSE 77; RESP 16; TEMP 36.6; O2SAT 97
[2024-05-26 23:17] LABS: Appearance Urine Clear; Color Urine Yellow; Glucose Urine UA Negative (Negative); Leukocyte Esterase Urine Negative (Negative); Nitrite Urine Negative (Negative); PH 5.5 (5.0-9.0); Urine Blood Negative (Negative); Urine Ketones Negative (Negative); Urine Protein Negative (Neg-Trace)
[2024-05-26 23:27] LABS: Amphetamine Screen Urine Not Detected (Not Detect); Barbiturates, Urine Not Detected (Not Detect); Benzodiazepines Screen Urine Not Detected (Not Detect); Buprenorphine Scr Not Detected (Not Detect); Cannabinoid Screen Urine Not Detected (Not Detect); Cocaine Screen Urine Not Detected (Not Detect); Fentanyl, urine Not Detected (Not Detect); Methadone Screen, Urine Not Detected (Not Detect); Opiate Screen Urine Not Detected (Not Detect); Oxycodone Screen Urine Not Detected (Not Detect); Phencyclidine Screen Urine Not Detected (Not Detect)
[2024-05-26 23:33] LABS: MANUAL DIFF FLAG NO
[2024-05-26 23:55] LABS: Alanine Aminotransferase 26 U/L (0-31); Albumin Level 3.9 g/dL (3.5-5.0); Alkaline Phosphatase 98 U/L (39-117); Anion Gap 15 (12-20); Aspartate Amino Transferase 27 U/L (5-31); Bilirubin Total 0.4 mg/dL (0.0-1.0); Blood Urea Nitrogen 18 mg/dL (9-16); Calcium 9.3 mg/dL (8.4-10.2); Carbon Dioxide 24 mmol/L (22-29); Chloride 98 mmol/L (96-108); Creatinine Clr Calc Pharmacy 42.4; Estimated Glomerular Filt Rate 55; Ethanol < 10 mg/dL; Glucose Random 98 mg/dL (60-115); Potassium 4.5 mmol/L (3.3-5.1); Sodium 132 mmol/L (135-145); Total Protein 6.1 g/dL (6.5-8.0)
[2024-05-26 23:56] LABS: Basophils Percent Auto 0.5 % (0-2); Eosinophils Absolute Auto 0.1 X10*3/uL (0.0-0.4); Eosinophils Percent Auto 0.8 % (0-4); Hematocrit 38.8 % (37.0-47.0); Hemoglobin 13.7 g/dl (12.0-16.0); Imm Gran Abs Auto 0.02 X10*3/uL (0.00-0.03); Imm Gran Pct Auto 0.2 % (0.0-0.4); Lymphocytes Absolute Auto 2.9 X10*3/uL (1.2-4.9); Mean Corpuscular HGB Conc 35.3 g/dl (31.0-35.0); Mean Corpuscular Volume 87.8 fL (80.0-98.0); Mean Platelet Volume 10.7 fL (9.4-12.3); Monocytes Absolute Auto 0.8 X10*3/uL (0.1-1.2); Monocytes Percent Auto 9.2 % (2-11); Neutrophils Absolute Auto 4.8 x10*3/uL (2.0-8.3); Neutrophils Percent Auto 55.3 % (45-73); Platelet Count 271 X10*3/uL (160-400); Red Blood Count 4.42 X10*6/uL (4.20-5.50); Red Cell Distribution Width 12.7 % (11.0-16.0); White Blood Count 8.6 X10*3/uL (4.8-10.8)
--- NOTE | 2024-05-27 | ECG_ITS ---
Test Reason : med clearance Blood Pressure : / mmHG Vent. Rate : 077 BPM Atrial Rate : 077 BPM P-R Int : 156 ms QRS Dur : 068 ms QT Int : 400 ms P-R-T Axes : 068 -03 051 degrees QTc Int : 452 ms Normal sinus rhythm Right atrial enlargement Borderline ECG When compared with ECG of 12-MAR-2021 08:56, No significant change was found Referred By: Dale Guzman Electronically Signed By:YANETH KEARNEY MD
--- NOTE | 2024-05-27 00:29 | ED.GENADULT ---
HPI - General Adult General Chief complaint: Psychiatric Symptoms Stated complaint: Crisis Time Seen by Provider: 05/26/24 23:45 Source: patient, RN notes reviewed and old records reviewed Mode of arrival: ambulatory Limitations: no limitations History of Present Illness ED Provider: Martín RAO narrative: 83-year-old female past medical history significant for major depressive disorder, OCD presents for evaluation of depression. Patient reports increasing depression for the last few weeks. She was a patient of Dr. Chambers for a psychiatry. The patient's daughter spoke to Dr. Chambers and he recommended she come to the emergency room to be admitted for treatment of her depression The patient reports passive suicidal ideation but no plan for harming herself She reports being compliant with all of her medications She denies any specific triggers for her worsening depression but does state that her 's dementia is a stressor for her She denies any somatic complaints at this time She does note a left ankle fracture that she has a boot on but denies any issues with this Related Data Home Medications ?Medication ?Instructions ?Recorded ?Confirmed venlafaxine 150 mg 150 mg PO DAILY 06/04/23 06/04/23 capsule,extended release 24 hr Previous Rx's ?Medication ?Instructions ?Recorded aripiprazole 5 mg tablet (Abilify) 5 mg PO DAILY #30 tabs 05/06/23 Allergies Allergy/AdvReac Type Severity Reaction Status Date / Time No Known Allergies Allergy Verified 05/26/24 20:50 [No Known Allergies*] Review of Systems Constitutional: Constitutional: Denies body ache(s), Denies chills, Denies fever(s) and Denies headache(s) Eyes: Eyes: Denies blurry vision ENT: Denies vertigo, Denies dizziness and Denies headache(s) Cardiovascular: Cardiovascular: Denies chest pain and Denies dyspnea Respiratory: Respiratory: Denies cough and Denies dyspnea Gastrointestinal: Gastrointestinal: Denies abdominal pain and Denies nausea Musculoskeletal: Musculoskeletal: Denies back pain Integumentary/Breasts: Skin/Breast: Denies rash Neurologic: Reports behavioral changes, Denies vertigo, Denies dizziness and Denies headache(s) Psychiatric: Psychiatric: Reports anxiety, Reports behavioral changes, Reports change in appetite, Reports hopelessness, Reports anhedonia, Denies panic attacks, Denies homicidal ideation and Denies suicidal ideation [facility] Past Medical History Medical History OCD (obsessive compulsive disorder) Major depressive disorder, recurrent severe without psychotic features S/P ECT (electroconvulsive therapy) Surgical History No history of previous surgery Family History Family History Mother CHF (congestive heart failure) Social History Social History Household Members: Spouse Housing: Condominium Do you presently have visiting nurse or other home services: No Patient Tobacco Use Status: Never used Tobacco Smoked in Last 30 Days: No Use of substances other than those prescribed or required for medical reasons: No Advance Directives: No Advance Directives Information Provided: No Do you have a plan to hurt others: No Plan service: No Sexual orientation: Straight/Heterosexual Physical Exam ED Vital Signs: Vital Signs - 24 hr 05/26/24 20:47 05/26/24 23:00 Temperature 98.6 F 97.9 F Pulse Rate 80 77 Respiratory Rate 18 16 Blood Pressure 133/78 147/70 H Pulse Oximetry 95 97 Oxygen Delivery Method Room Air Room Air BMI result Body Mass Index 24.9 Const General: healthy appearing, comfortable, no acute distress, alert and awake Nutritional Appearance: well nourished Orientation/consciousness: patient oriented x3 HENMT Head: Yes normocephalic and Yes atraumatic Eyes Eyelids: Yes eyelids normal Conjunctivae: conjunctivae normal Sclerae: sclerae normal Corneas: corneas normal Pupils: Equal, round and reactive pupils present EOM: EOMs intact bilaterally Neck Neck: Yes full ROM Resp Effort & Inspection: normal respiratory effort, able to speak in complete sentences and not labored Cardio Rate: regular rate Rhythm: regular rhythm GI Inspection: No distended Palpation (GI): Soft to palpation, not firm, nontender, no guarding and not rigid Skin General skin exam: elasticity normal Neuro General: patient oriented x3 Cranial nerves: Yes Equal, round and reactive pupils present and Yes Bilaterally intact EOM present Cognition (Neuro): normal cognition Extrem Other: Moving all extremities well without any obvious deformities Medical Decision Making Medical Decision Making MDM Narrative: 83-year-old female presents for evaluation depression with passive suicidal ideation. She has been seen by the care team and was deemed to require inpatient level of care as recommended by her psychiatrist. The patient's medical workup was significant for a mild hyponatremia of 132. This may be related to poor p.o. consumption while still drinking water. She is not on any diuretics, denies excessive alcohol abuse. The patient can treat this with increase sodium chloride intake such as saltines. And fluid restriction. There is an IV fluids shortage and I do not feel the patient is hypovolemic requiring IV resuscitation. Differential Diagnosis Differential Diagnoses: The differential diagnosis associated with the presentation includes Depression Suicidal ideation Major depressive episode Hyponatremia Lab Data MDM Lab Attestation statement: I reviewed the patient's lab results. No leukocytosis or anemia. Normal platelet count. Mild hyponatremia of 132. No other significant electrolyte abnormalities 05/26/24 23:30 05/26/24 23:30 Labs: Lab Results 05/26/24 05/26/24 Range/Units 23:04 23:30 WBC 8.6 (4.8-10.8) X10*3/uL RBC 4.42 (4.20-5.50) X10*6/uL Hgb 13.7 (12.0-16.0) g/dl Hct 38.8 (37.0-47.0) % MCV 87.8 (80.0-98.0) fL MCH 31.0 (27.0-33.0) pg MCHC 35.3 H (31.0-35.0) g/dl RDW 12.7 (11.0-16.0) % Plt Count 271 D (160-400) X10*3/uL MPV 10.7 (9.4-12.3) fL Immature Gran % (Auto) 0.2 (0.0-0.4) % Neut % (Auto) 55.3 (45-73) % Lymph % (Auto) 34.0 (20-40) % Dixon % (Auto) 9.2 (2-11) % Eos % (Auto) 0.8 (0-4) % Baso % (Auto) 0.5 (0-2) % Lymph # (Auto) 2.9 (1.2-4.9) X10*3/uL Dixon # (Auto) 0.8 (0.1-1.2) X10*3/uL Eos # (Auto) 0.1 (0.0-0.4) X10*3/uL Baso # (Auto) 0.0 (0.0-0.2) X10*3/uL Abs Immat Gran (auto) 0.02 (0.00-0.03) X10*3/uL Absolute Neuts (auto) 4.8 (2.0-8.3) x10*3/uL Absolute Nucleated RBC 0.000 (0.0-0.012) X10*3/uL Nucleated RBC % (auto) 0.0 (0.0-0.2) /100WBC Sodium 132 L (135-145) mmol/L Potassium 4.5 (3.3-5.1) mmol/L Chloride 98 (96-108) mmol/L Carbon Dioxide 24 (22-29) mmol/L Anion Gap 15 (12-20) BUN 18 H (9-16) mg/dL Creatinine 0.97 (0.5-1.4) mg/dL Estim Creat Clear Calc 42.4 Estimated GFR 55 Random Glucose 98 (60-115) mg/dL Calcium 9.3 (8.4-10.2) mg/dL Total Bilirubin 0.4 (0.0-1.0) mg/dL AST 27 (5-31) U/L ALT 26 (0-31) U/L Alkaline Phosphatase 98 (39-117) U/L Total Protein 6.1 L (6.5-8.0) g/dL Albumin 3.9 (3.5-5.0) g/dL Urine Color Yellow Urine Appearance Clear Urine pH 5.5 (5.0-9.0) Ur Specific [place] 1.010 (1.005-1.025) Urine Protein Negative (Neg-Trace) mg/dL Urine Glucose (UA) Negative (Negative) mg/dL Urine Ketones Negative (Negative) mg/dL Urine Blood Negative (Negative) Urine Nitrite Negative (Negative) Ur Leukocyte Esterase Negative (Negative) Urine Opiates Screen Not Detected (Not Detect) Ur Buprenorphine Scrn Not Detected (Not Detect) ng/mL Ur Oxycodone Screen Not Detected (Not Detect) ng/mL Urine Methadone Screen Not Detected (Not Detect) ng/mL Urine Fentanyl Screen Not Detected (Not Detect) Ur Barbiturates Screen Not Detected (Not Detect) Ur Phencyclidine Scrn Not Detected (Not Detect) Ur Amphetamines Screen Not Detected (Not Detect) U Benzodiazepines Scrn Not Detected (Not Detect) Urine Cocaine Screen Not Detected (Not Detect) U Marijuana (THC) Screen Not Detected (Not Detect) Ethyl Alcohol < 10 mg/dL Discharge Plan Discharge Clinical Impression: Depression Patient Disposition: Still a Patient Prescriptions: No Action aripiprazole [Abilify] 5 mg tablet 5 mg PO DAILY Qty: 30 0RF venlafaxine 150 mg capsule,extended release 24hr 150 mg PO DAILY Interventions: Titus-Suicide Risk Severity Scale Last Done: 05/26/24 21:21 Print Language: Faroese
[2024-05-27 03:25] VITALS: BP 152/63; PULSE 84; RESP 17; TEMP 36.3; O2SAT 95
--- NOTE | 2024-05-27 03:39 | PC.NURSE ---
Patient up to commode with assist of 1, [id number] on Left foot.
[2024-05-27 07:32] VITALS: BP 145/64; PULSE 78; RESP 14; TEMP 36.6; O2SAT 96
[2024-05-27 08:42] LABS: Alanine Aminotransferase 28 U/L (0-31); Albumin Level 3.7 g/dL (3.5-5.0); Alkaline Phosphatase 90 U/L (39-117); Anion Gap 14 (12-20); Aspartate Amino Transferase 29 U/L (5-31); Bilirubin Total 0.6 mg/dL (0.0-1.0); Blood Urea Nitrogen 14 mg/dL (9-16); Calcium 9.3 mg/dL (8.4-10.2); Carbon Dioxide 26 mmol/L (22-29); Chloride 102 mmol/L (96-108); Creatinine Clr Calc Pharmacy 41.1; Estimated Glomerular Filt Rate 53; Glucose Random 100 mg/dL (60-115); Osmolality, Serum 283 mosm/kg (281-305); Potassium 4.5 mmol/L (3.3-5.1); Sodium 137 mmol/L (135-145); Total Protein 5.9 g/dL (6.5-8.0)
--- NOTE | 2024-05-27 11:14 | PC.NURSE ---
pt transported upstairs by wheelchair with security, psychiatric rn, sitter, and son at bedside. belongings returned from hallway shelf 4 including suitcase.
--- NOTE | 2024-05-27 11:19 | PHA.MEDREC ---
Addendum entered by Ayad Valladares RPh 05/27/24 12:18: REVIEWED BY [facility] Original Note: Pharmacy Consult ? Medication Reconciliation Pharmacy has completed the medication reconciliation. reviewed med rec done by nursing.
[2024-05-27 12:56] VITALS: BMI 22.7
[2024-05-27 12:58] VITALS: BP 137/64; PULSE 81; RESP 20; TEMP 36.4; O2SAT 99
[2024-05-27] MEDS: Venlafaxine HCl ER 150 MG CAP.ER.24H PO (13:05)
--- NOTE | 2024-05-27 13:19 | HO.PSYADMNOT ---
HPI Date of Service: 05/27/24 Chief Complaint: depression Sources of Information: patient interviewed, chart reviewed and crisis/core team assessment reviewed HPI Subjective Notes: [place] Warning and Conditional Voluntary Narrative: Mrs. 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 Kyler Chambers to come to [facility] [place] [place] ED due to increased depression, suicidal ideation without a plan in the context of recently breaking her ankle, depending on her who has dementia. She had ECT treatment in the past with good effect. Plan is to resume ECT while inpatient. In the ED, utox is negative. UA not suggestive of UTI. Initially cmp showed hyponatremia, but not in repeat cmp. On the unit, pt presents as pleasant, somewhat withdrawn, has come to see her while on the unit, which seems to be helpful. She reports feeling depressed. She also reports suicidal ideation but denies any plan. She adds that she is concern about financial issues. No VH/AH. No delusions. She reports sleeping well. Past Psychiatric History: History of psychiatric hospitalizations history of ECT including maintenance ECT in the past in [place] PATIENT HAS FAILED TRIALS OF FLUOXETINE SERTRALINE AMITRIPTYLINE WELLBUTRIN Medical Evaluation Reviewed: Yes [facility] Medical History OCD (obsessive compulsive disorder) Major depressive disorder, recurrent severe without psychotic features S/P ECT (electroconvulsive therapy) Surgical History No history of previous surgery Family History: GF DEPRESSION SUICIDE Social History: Patient is retired lives with her and [place]. 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 Substance History: none Trauma History: none Diagnostics Vital Signs (24Hr): Vital Signs - 24 hr 05/26/24 20:47 05/26/24 23:00 05/27/24 03:25 Temperature 98.6 F 97.9 F 97.4 F Pulse Rate 80 77 84 Respiratory Rate 18 16 17 Blood Pressure 133/78 147/70 H 152/63 H Pulse Oximetry 95 97 95 Oxygen Delivery Method Room Air Room Air Room Air 05/27/24 07:32 05/27/24 12:58 Temperature 97.8 F 97.6 F Pulse Rate 78 81 Respiratory Rate 14 20 Blood Pressure 145/64 H 137/64 Pulse Oximetry 96 99 Oxygen Delivery Method Room Air Room Air BMI result Body Mass Index 22.7 Labs 05/26/24 23:30 05/28/24 07:13 Labs: Laboratory Results - last 48 hr 05/26/24 05/26/24 05/27/24 23:04 23:30 08:22 WBC 8.6 RBC 4.42 Hgb 13.7 Hct 38.8 MCV 87.8 MCH 31.0 MCHC 35.3 H RDW 12.7 Plt Count 271 D MPV 10.7 Immature Gran % (Auto) 0.2 Neut % (Auto) 55.3 Lymph % (Auto) 34.0 Alexander % (Auto) 9.2 Eos % (Auto) 0.8 Baso % (Auto) 0.5 Lymph # (Auto) 2.9 Alexander # (Auto) 0.8 Eos # (Auto) 0.1 Baso # (Auto) 0.0 Abs Immat Gran (auto) 0.02 Absolute Neuts (auto) 4.8 Absolute Nucleated RBC 0.000 Nucleated RBC % (auto) 0.0 Sodium 132 L 137 Potassium 4.5 4.5 Chloride 98 102 Carbon Dioxide 24 26 Anion Gap 15 14 BUN 18 H 14 Creatinine 0.97 1.00 Estim Creat Clear Calc 42.4 41.1 Estimated GFR 55 53 Random Glucose 98 100 Osmolality 283 Calcium 9.3 9.3 Total Bilirubin 0.4 0.6 AST 27 29 ALT 26 28 Alkaline Phosphatase 98 90 Total Protein 6.1 L 5.9 L Albumin 3.9 3.7 Urine Color Yellow Urine Appearance Clear Urine pH 5.5 Ur Specific [place] 1.010 Urine Protein Negative Urine Glucose (UA) Negative Urine Ketones Negative Urine Blood Negative Urine Nitrite Negative Ur Leukocyte Esterase Negative Urine Opiates Screen Not Detected Ur Buprenorphine Scrn Not Detected Ur Oxycodone Screen Not Detected Urine Methadone Screen Not Detected Urine Fentanyl Screen Not Detected Ur Barbiturates Screen Not Detected Ur Phencyclidine Scrn Not Detected Ur Amphetamines Screen Not Detected U Benzodiazepines Scrn Not Detected Urine Cocaine Screen Not Detected U Marijuana (THC) Screen Not Detected Ethyl Alcohol < 10 Meds/Allergies Meds Home Medications ?Medication ?Instructions ?Recorded ?Confirmed ?Type venlafaxine 150 mg 150 mg PO DAILY 06/04/23 05/27/24 History capsule,extended release 24 hr aspirin 81 mg tablet,delayed 81 mg PO DAILY 05/27/24 05/27/24 History release Allergies Allergies Allergy/AdvReac Type Severity Reaction Status Date / Time No Known Allergies Allergy Verified 05/26/24 20:50 [No Known Allergies*] Mental Status Exam Mental Status Exam Narrative: Appearance: wearing hospital gown, fair hygiene, in NAD Behavior: cooperative Psychomotor: no agitation or retardation noted Speech: clear, normal rate/rhythm/volume, spontaneous TP: linear TC: without psychosis, hopeless, depressed Mood: not well Affect: constricted SI: passive HI: none VH/AH: none Delusions: none Insight/judgment: poor x 2. Memory/cog: alert, oriented x 4. not formally tested. Assessment & Plan Assessment & Plan (1) Major depressive disorder, recurrent severe without psychotic features: Status: Acute Code(s): F33.2 - Major depressive disorder, recurrent severe without psychotic features (2) OCD (obsessive compulsive disorder): Status: Acute Qualifiers: Obsessive-compulsive disorder type: unspecified Qualified Code(s): F42.9 - Obsessive-compulsive disorder, unspecified Code(s): F42.9 - Obsessive-compulsive disorder, unspecified Plan Mrs. Zayas is a 83 year-old woman with hx of depression. She came at recommendation of her [facility] psychiatrist, Dr. Kyler Chambers. She has been more depressed since she broke her ankle and depends on who has dementia. She has had passive SI, no plan or intent. Plan to resume ECT inpatient. PLAN 1. admit to m3, with plan to transfer to , , 1:1 due to wheelchair. 2. continue venlafaxine 150mg po daily, abilify 5mg po daily. 3. medical clearance for ECT 4. aftercare planning. Patient educated on: diagnosis and medication risk/benefits Reason for continued inpatient stay Substantial Risk for: harm to self and inability to function Statement Statement: I have reviewed the history and physical and performed a pertinent examination on my patient. No changes have occurred unless specified. If the History and Physical was not performed prior to admission, the Hospitalist's service will be consulted for completing the admission physical. Time Spent With Patient Time: Total time managing care of this patient today ____ minutes.
[2024-05-27] MEDS: Aspirin Enteric Coated 81 MG TABLET.DR PO (15:22)
[2024-05-27] MEDS: ARIPiprazole 5 MG TABLET PO (15:22)
--- NOTE | 2024-05-27 17:26 | PC.ADMIT ---
Addendum entered and electronically signed by Valentine Sebastian RN 05/27/24 18:26: Arrived on unit at 1115. Original Note: This 83 y.o. women was referred by the Care Team at [facility] [place] [facility] with Dx of Major Depressive D/O severe, OCD. Nurse to nurse with ED pod done prior to admission. Meds verified in ED, admission orders received from Nella Robles, prescriber. Precipitating factors to admission: presented to ED per Dr Chambers for Care Team eval and admission to Behavioral Health unit due to increased depression/decompensation. Plan is for continued ECT, which she has hx receiving with Dr Chambers. Hx prior admission to another Behavioral Health unit at [facility] [facility]. Recent stressors include Fx and surgery of left ankle in April, and developing dementia. Family reports pt expressed SI to daughter. Pt denies SI, stating she told her daughter it would be a relief if she wasn't alive. Denies plan or intent. Son, Rufino, is HCP. Conditional voluntary status. Wheelchair use due to non-wt bearing status on left leg due to left ankle fx. Surgery to left ankle on 05/09/24, cast removed 05/27/24. Air cast on 05/27/24. Color and movement WNL toes left foot, no swelling noted toes /left leg. Denies discomfort to area. Safety checks-1:1 for safety. Reports urinary frequency due to increase in water intake to hydrate. States she was tested in ED for UTI, negative results. Denies etoh/substance use, tox screen negative. Pleasant/cooperative during admission process. Alert and oriented x4. Rates depression #8, anxiety #7 on scale 1-10(10 worse). Denies AH/VH. States she is able to sleep, despite left ankle fx/cast. Appetite has been reported as poor in crisis eval, pt reports it is fair. Requires assistance with transfers, toileting, bathing, dressing. post form remover/skin check done upon admission with 2 staff present.
[2024-05-27 22:35] VITALS: BP 138/68; PULSE 76; RESP 18; TEMP 36.6; O2SAT 98
[2024-05-28 07:33] LABS: Estimated Average Glucose 111 mg/dL; Hemoglobin A1C 138.9818 umol/L; Hemoglobin A1c % 5.5 % (<6.0); Total Hemoglobin (HGBA1C) 3816.5409 umol/L
[2024-05-28 07:45] LABS: Alanine Aminotransferase 35 U/L (0-31); Albumin Level 3.9 g/dL (3.5-5.0); Alkaline Phosphatase 91 U/L (39-117); Anion Gap 14 (12-20); Aspartate Amino Transferase 36 U/L (5-31); Bilirubin Total 0.5 mg/dL (0.0-1.0); Blood Urea Nitrogen 17 mg/dL (9-16); Calcium 9.4 mg/dL (8.4-10.2); Carbon Dioxide 23 mmol/L (22-29); Chloride 103 mmol/L (96-108); Cholesterol 212 mg/dL (<200); Creatinine Clr Calc Pharmacy 43.3; Estimated Glomerular Filt Rate > 60; Glucose Fasting 104 mg/dL (60-99); HDL Cholesterol 89 mg/dL (>40); LDL Cholesterol Calculated 115 mg/dL (<100); Potassium 4.4 mmol/L (3.3-5.1); Sodium 136 mmol/L (135-145); Triglycerides 44 mg/dL (<150)
[2024-05-28 07:55] VITALS: BP 140/86; PULSE 87; RESP 18; TEMP 36.6; O2SAT 95
[2024-05-28 08:00] LABS: Free T4 (Free Thyroxine) 1.12 ng/dL (0.71-1.85); Thyroid Stimulating Hormone 3.73 uIU/mL (0.32-4.0)
[2024-05-28 08:13] LABS: Folate 6.3 ng/mL (> or = 4.0); Vitamin B12 555 pg/mL (200-900)
[2024-05-28] MEDS: ARIPiprazole 5 MG TABLET PO (08:52)
[2024-05-28] MEDS: Aspirin Enteric Coated 81 MG TABLET.DR PO (08:53)
[2024-05-28] MEDS: Venlafaxine HCl ER 150 MG CAP.ER.24H PO (08:53)
--- NOTE | 2024-05-28 16:47 | HO.ECTCONS_ITS ---
History of Present Illness Data of Consult Service Date: 05/28/24 Primary Care Provider: Griselda Lynne MD [facility] Reason for consult: ECT risk stratification Patient is an 83-year-old female with a PMH significant for MDD, OCD, and recent left ankle fracture who was admitted to [facility] with increased depression, decreased appetite, and medication noncompliance. Hospitalist consult for ECT risk stratification. Patient reports approximately 3 weeks ago was outside on a walk at her assisted living facility when she rolled her ankle on some acorns. Was seen and evaluated and diagnosed with a left ankle fracture and was placed in a walking boot. Patient denies any pain, but has limited mobility and is primarily using a wheelchair. Patient has a long history of ECT, and has been undergoing therapy on and off for many years. Reports it has helped her in the past and denies experiencing any problems secondary to ECT or anesthesia. No history of cerebral hemorrhage, stroke, or intracranial mass/lesion. Denies history of seizure, TBI, bleeding disorder or otherwise unstable vascular aneurysm. No severe pulmonary conditions. Patient also denies any significant cardiac history. Currently patient has no acute medical complaints other than limited mobility on left foot. Denies chest pain/pressure, palpitations. No shortness a breath or difficulty breathing. Denies fever, chills, nausea, vomiting, abdominal pain. No headache or acute vision changes. Vital signs reviewed, stable and WNL. EKG from 05/27 showed normal sinus rhythm with QTc WNL at 452 without evidence of significant ischemia. Review of Systems 2 Review of Systems: Limited mobility on left ankle secondary to fracture 3 weeks ago Currently denies left leg or ankle pain Patient otherwise has no acute medical complaints at this time [facility] Medical History OCD (obsessive compulsive disorder) Major depressive disorder, recurrent severe without psychotic features S/P ECT (electroconvulsive therapy) Family History Mother CHF (congestive heart failure) Surgical History No history of previous surgery Social History Household Members: Spouse Housing: Condominium Housing Other:: [place] community Do you presently have visiting nurse or other home services: No Patient Tobacco Use Status: Never used Tobacco Smoked in Last 30 Days: No Use of substances other than those prescribed or required for medical reasons: No Currently Displaying Signs/Symptoms of Drug Intoxication Withdrawal: No Any prior treatment program specific to substance use: No Have you been hit, kicked, punched, or otherwise hurt by someone within the past year? If so, by whom?: No Do you feel safe in your current relationship?: Yes Is there a partner from a previous relationship who is making you feel unsafe now?: No Are you made to feel afraid or neglected: No Advance Directives: No Advance Directives Information Provided: No Do you have thoughts of harming others: None Do you have a plan to hurt others: No Plan Recently lost weight without trying: No Eating poorly because of decreased appetite: No Nutrition Risks: No Nutritional Risk Patient : No : No Poor oral hygiene: No service: No Sexual orientation: Straight/Heterosexual Meds Allergies Allergy/AdvReac Type Severity Reaction Status Date / Time No Known Allergies Allergy Verified 05/26/24 20:50 [No Known Allergies*] Active Medications: Current Medications Acetaminophen (Acetaminophen 325 Mg Tablet) 650 mg PO Q6H PRN PRN Reason: Headache/Pain Mild Scale (1-3) Al Hydroxide/Mg Hydroxide (Magnesium Hydrox/Alum Hydrox 30 Ml Oral.Susp) 30 ml PO Q6H PRN PRN Reason: Heartburn/Nausea Aripiprazole (Aripiprazole 5 Mg Tablet) 5 mg PO DAILY [facility] Last Admin: 05/28/24 08:52 Dose: 5 mg Aspirin (Aspirin Enteric Coated 81 Mg Tablet.Dr) 81 mg PO DAILY [facility] Last Admin: 05/28/24 08:53 Dose: 81 mg Hydroxyzine HCl (Hydroxyzine Hcl 25 Mg Tablet) 25 mg PO Q6H PRN PRN Reason: Anxiety Magnesium Hydroxide (Milk Of Magnesia 30 Ml Oral.Susp) 30 ml PO DAILY PRN PRN Reason: Constipation Nicotine Polacrilex (Nicotine Polacrilex 2 Mg Gum) 2 mg BUCCAL Q2H PRN PRN Reason: Nicotine Cravings Trazodone HCl (Trazodone Hcl 50 Mg Tablet) 50 mg PO BEDTIME MRX1 PRN PRN Reason: Insomnia Venlafaxine HCl (Venlafaxine Hcl Er 150 Mg Cap.Er.24h) 150 mg PO DAILY [facility] Last Admin: 05/28/24 08:53 Dose: 150 mg Home Medications ?Medication ?Instructions ?Recorded ?Confirmed ?Last Taken ?Type venlafaxine 150 mg 150 mg PO DAILY 06/04/23 05/27/24 05/26/24 09:00 History capsule,extended release 24 hr aspirin 81 mg tablet,delayed 81 mg PO DAILY 05/27/24 05/27/24 05/26/24 09:00 History release Physical Exam 2 Vital Signs and Narrative: Vital Signs: Last Vital Signs Temp 97.9 F 05/28/24 07:55 Pulse 87 05/28/24 07:55 Resp 18 05/28/24 07:55 BP 140/86 H 05/28/24 07:55 Pulse Ox 95 05/28/24 07:55 O2 Del Method Room Air 05/28/24 07:55 BMI result Body Mass Index 22.7 General: AOx3, no acute distress. Pt resting comfortably in wheelchair Resp: CTA bilaterally CVS: S1, S2, RRR GI: +BS, NT, no distention Skin: Warm, dry Neuro: Cranial nerves II-XII grossly intact bilaterally. Motor grossly intact bilaterally Extremities: No edema. Walking boot in place on left foot. Psych: Flat affect Results Labs 05/26/24 23:30 05/28/24 07:13 Labs: Laboratory Results - last 24 hr 05/28/24 07:13 Anion Gap 14 Estim Creat Clear Calc 43.3 Estimated GFR > 60 Fasting Glucose 104 H Estimat Average Glucose 111 Hemoglobin A1c % 5.5 Calcium 9.4 Total Bilirubin 0.5 AST 36 H ALT 35 H Alkaline Phosphatase 91 Total Protein 6.0 L Albumin 3.9 Triglycerides 44 Cholesterol 212 H LDL Cholesterol, Calc 115 H HDL Cholesterol 89 Vitamin B12 555 Folate 6.3 TSH 3.73 Free T4 1.12 Assessment and Plan (1) Pre-op evaluation: Status: Acute Plan Patient is an 83-year-old female with a PMH significant for MDD, OCD, and recent left ankle fracture who was admitted to [facility] with increased depression, decreased appetite, and medication noncompliance. Hospitalist consult for ECT risk stratification. ECT risk stratification No significant contradictory PMH Has undergone ECT many times in the past without complications No prior difficulties with anesthesia EKG without prolonged QT or ischemic changes RCRI 0 points, class 1 risk Based on history and exam there are no contraindications to the planned procedure No additional workup or treatment indicated at this time Thank you for allowing us to participate in the care of this patient. Signing off at this time. Please re-consult if any acute complaints or issues arise.
--- NOTE | 2024-05-28 19:54 | HO.PSYCHPN ---
Subjective Subjective Date of Service: 05/28/24 Reason For Visit: depression Subjective Notes: Conditional Voluntary Interim History: Pt reports not feeling well in terms of mood. denies any pain on fractured ankle. passive SI, no plan or intent. She is worried that her insurance will cover admission. visit with family. Medication Compliance: Yes Review of Systems Review of Systems Limited mobility on left ankle secondary to fracture 3 weeks ago Currently denies left leg or ankle pain Patient otherwise has no acute medical complaints at this time Constitutional: Denies body ache(s), Denies chills, Denies fever(s) and Denies headache(s) Eyes: Denies blurry vision Denies vertigo, Denies dizziness and Denies headache(s) Cardiovascular: Denies chest pain and Denies dyspnea Respiratory: Denies cough and Denies dyspnea Gastrointestinal: Denies abdominal pain and Denies nausea Musculoskeletal: Denies back pain Skin/Breast: Denies rash Reports behavioral changes, Denies vertigo, Denies dizziness and Denies headache(s) Psychiatric: Reports anxiety, Reports behavioral changes, Reports change in appetite, Reports hopelessness, Reports anhedonia, Denies panic attacks, Denies homicidal ideation and Denies suicidal ideation Mental Status Exam Mental Status Exam Narrative: Appearance: wearing hospital gown, fair hygiene, in NAD Behavior: cooperative Psychomotor: no agitation or retardation noted Speech: clear, normal rate/rhythm/volume, spontaneous TP: linear TC: without psychosis, hopeless, depressed Mood: not well Affect: constricted SI: passive HI: none VH/AH: none Delusions: none Insight/judgment: poor x 2. Memory/cog: alert, oriented x 4. not formally tested. Diagnostics Vital Signs (24Hr): Vital Signs - 24 hr 05/27/24 22:35 05/28/24 07:55 Temperature 97.8 F 97.9 F Pulse Rate 76 87 Respiratory Rate 18 18 Blood Pressure 138/68 140/86 H Pulse Oximetry 98 95 Oxygen Delivery Method Room Air Room Air BMI result Body Mass Index 22.7 Labs 05/26/24 23:30 05/28/24 07:13 Labs: Laboratory Results - last 48 hr 05/26/24 05/26/24 05/27/24 23:04 23:30 08:22 WBC 8.6 RBC 4.42 Hgb 13.7 Hct 38.8 MCV 87.8 MCH 31.0 MCHC 35.3 H RDW 12.7 Plt Count 271 D MPV 10.7 Immature Gran % (Auto) 0.2 Neut % (Auto) 55.3 Lymph % (Auto) 34.0 [place] % (Auto) 9.2 Eos % (Auto) 0.8 Baso % (Auto) 0.5 Lymph # (Auto) 2.9 [place] # (Auto) 0.8 Eos # (Auto) 0.1 Baso # (Auto) 0.0 Abs Immat Gran (auto) 0.02 Absolute Neuts (auto) 4.8 Absolute Nucleated RBC 0.000 Nucleated RBC % (auto) 0.0 Sodium 132 L 137 Potassium 4.5 4.5 Chloride 98 102 Carbon Dioxide 24 26 Anion Gap 15 14 BUN 18 H 14 Creatinine 0.97 1.00 Estim Creat Clear Calc 42.4 41.1 Estimated GFR 55 53 Random Glucose 98 100 Fasting Glucose Estimat Average Glucose Hemoglobin A1c % Osmolality 283 Calcium 9.3 9.3 Total Bilirubin 0.4 0.6 AST 27 29 ALT 26 28 Alkaline Phosphatase 98 90 Total Protein 6.1 L 5.9 L Albumin 3.9 3.7 Triglycerides Cholesterol LDL Cholesterol, Calc HDL Cholesterol Vitamin B12 Folate TSH Free T4 Urine Color Yellow Urine Appearance Clear Urine pH 5.5 Ur Specific [place] 1.010 Urine Protein Negative Urine Glucose (UA) Negative Urine Ketones Negative Urine Blood Negative Urine Nitrite Negative Ur Leukocyte Esterase Negative Urine Opiates Screen Not Detected Ur Buprenorphine Scrn Not Detected Ur Oxycodone Screen Not Detected Urine Methadone Screen Not Detected Urine Fentanyl Screen Not Detected Ur Barbiturates Screen Not Detected Ur Phencyclidine Scrn Not Detected Ur Amphetamines Screen Not Detected U Benzodiazepines Scrn Not Detected Urine Cocaine Screen Not Detected U Marijuana (THC) Screen Not Detected Ethyl Alcohol < 10 05/28/24 07:13 WBC RBC Hgb Hct MCV MCH MCHC RDW Plt Count MPV Immature Gran % (Auto) Neut % (Auto) Lymph % (Auto) [place] % (Auto) Eos % (Auto) Baso % (Auto) Lymph # (Auto) [place] # (Auto) Eos # (Auto) Baso # (Auto) Abs Immat Gran (auto) Absolute Neuts (auto) Absolute Nucleated RBC Nucleated RBC % (auto) Sodium 136 Potassium 4.4 Chloride 103 Carbon Dioxide 23 Anion Gap 14 BUN 17 H Creatinine 0.88 Estim Creat Clear Calc 43.3 Estimated GFR > 60 Random Glucose Fasting Glucose 104 H Estimat Average Glucose 111 Hemoglobin A1c % 5.5 Osmolality Calcium 9.4 Total Bilirubin 0.5 AST 36 H ALT 35 H Alkaline Phosphatase 91 Total Protein 6.0 L Albumin 3.9 Triglycerides 44 Cholesterol 212 H LDL Cholesterol, Calc 115 H HDL Cholesterol 89 Vitamin B12 555 Folate 6.3 TSH 3.73 Free T4 1.12 Urine Color Urine Appearance Urine pH Ur Specific [place] Urine Protein Urine Glucose (UA) Urine Ketones Urine Blood Urine Nitrite Ur Leukocyte Esterase Urine Opiates Screen Ur Buprenorphine Scrn Ur Oxycodone Screen Urine Methadone Screen Urine Fentanyl Screen Ur Barbiturates Screen Ur Phencyclidine Scrn Ur Amphetamines Screen U Benzodiazepines Scrn Urine Cocaine Screen U Marijuana (THC) Screen Ethyl Alcohol Medications Medications Current Medications Acetaminophen (Acetaminophen 325 Mg Tablet) 650 mg PO Q6H PRN PRN Reason: Headache/Pain Mild Scale (1-3) Al Hydroxide/Mg Hydroxide (Magnesium Hydrox/Alum Hydrox 30 Ml Oral.Susp) 30 ml PO Q6H PRN PRN Reason: Heartburn/Nausea Aripiprazole (Aripiprazole 5 Mg Tablet) 5 mg PO DAILY [facility] Last Admin: 05/28/24 08:52 Dose: 5 mg Aspirin (Aspirin Enteric Coated 81 Mg Tablet.Dr) 81 mg PO DAILY [facility] Last Admin: 05/28/24 08:53 Dose: 81 mg Hydroxyzine HCl (Hydroxyzine Hcl 25 Mg Tablet) 25 mg PO Q6H PRN PRN Reason: Anxiety Magnesium Hydroxide (Milk Of Magnesia 30 Ml Oral.Susp) 30 ml PO DAILY PRN PRN Reason: Constipation Nicotine Polacrilex (Nicotine Polacrilex 2 Mg Gum) 2 mg BUCCAL Q2H PRN PRN Reason: Nicotine Cravings Trazodone HCl (Trazodone Hcl 50 Mg Tablet) 50 mg PO BEDTIME MRX1 PRN PRN Reason: Insomnia Venlafaxine HCl (Venlafaxine Hcl Er 150 Mg Cap.Er.24h) 150 mg PO DAILY [facility] Last Admin: 05/28/24 08:53 Dose: 150 mg Allergies Allergies Allergy/AdvReac Type Severity Reaction Status Date / Time No Known Allergies Allergy Verified 05/26/24 20:50 [No Known Allergies*] Assessment & Plan Assessment & Plan (1) Major depressive disorder, recurrent severe without psychotic features: Status: Acute Code(s): F33.2 - Major depressive disorder, recurrent severe without psychotic features (2) OCD (obsessive compulsive disorder): Qualifiers: Obsessive-compulsive disorder type: unspecified Qualified Code(s): F42.9 - Obsessive-compulsive disorder, unspecified Status: Acute Code(s): F42.9 - Obsessive-compulsive disorder, unspecified Plan Patient is an 83-year-old female with a PMH significant for MDD, OCD, and recent left ankle fracture who was admitted to [facility] with increased depression, decreased appetite, and medication noncompliance. Hospitalist consult for ECT risk stratification. ECT risk stratification No significant contradictory PMH Has undergone ECT many times in the past without complications No prior difficulties with anesthesia EKG without prolonged QT or ischemic changes RCRI 0 points, class 1 risk Based on history and exam there are no contraindications to the planned procedure No additional workup or treatment indicated at this time 05/28c continue tx. pending ECT Reason for continued inpatient stay Substantial Risk for: inability to function Time Spent With Patient Time: Total time managing care of this patient today ____ minutes.
[2024-05-28 20:00] VITALS: BP 179/82; PULSE 87; RESP 16; TEMP 36.4; O2SAT 98
[2024-05-28] MEDS: traZODone HCL 50 MG TABLET PO (21:18)
[2024-05-28 22:04] VITALS: BP 152/72; RESP 16
[2024-05-29 08:00] VITALS: BP 138/80; PULSE 88; RESP 16; TEMP 36.9; O2SAT 99
[2024-05-29] MEDS: Aspirin Enteric Coated 81 MG TABLET.DR PO (08:43)
[2024-05-29] MEDS: Venlafaxine HCl ER 150 MG CAP.ER.24H PO (08:43)
[2024-05-29] MEDS: ARIPiprazole 5 MG TABLET PO (08:43)
--- NOTE | 2024-05-29 11:56 | PM.CNOR ---
History of Present Illness HPI Consult date: 05/29/24 Chief complaint: depression Narrative: Patient currently admitted to [facility] for SI without a plan. She reports that 3 weeks ago she was walking and slipped on acorns resulting in a left ankle fracture. She had a left ankle ORIF performed at [facility] with Dr. Kelly. She is currently in a boot and understnds that she is to be non weightbearing for an additional 4 weeks. Orthopedics was consulted for this problem during her stay in [facility] for additional recommendations. Review of Systems Review of Systems: Yes all other systems are reviewed and are negative [facility] Past Medical History Medical History OCD (obsessive compulsive disorder) Major depressive disorder, recurrent severe without psychotic features S/P ECT (electroconvulsive therapy) Family History Family History Mother CHF (congestive heart failure) Surgical History Surgical History No history of previous surgery Social History Social History Household Members: Spouse Housing: Condominium Housing Other:: Assisted community Do you presently have visiting nurse or other home services: No Patient Tobacco Use Status: Never used Tobacco Smoked in Last 30 Days: No Use of substances other than those prescribed or required for medical reasons: No Currently Displaying Signs/Symptoms of Drug Intoxication Withdrawal: No Any prior treatment program specific to substance use: No Have you been hit, kicked, punched, or otherwise hurt by someone within the past year? If so, by whom?: No Do you feel safe in your current relationship?: Yes Is there a partner from a previous relationship who is making you feel unsafe now?: No Are you made to feel afraid or neglected: No Advance Directives: No Advance Directives Information Provided: No Do you have thoughts of harming others: None Do you have a plan to hurt others: No Plan Recently lost weight without trying: No Eating poorly because of decreased appetite: No Nutrition Risks: No Nutritional Risk Patient : No : No Poor oral hygiene: No service: No Sexual orientation: Straight/Heterosexual Meds Allergies Allergy/AdvReac Type Severity Reaction Status Date / Time No Known Allergies Allergy Verified 05/26/24 20:50 [No Known Allergies*] Active Medications: Current Medications Acetaminophen (Acetaminophen 325 Mg Tablet) 650 mg PO Q6H PRN PRN Reason: Headache/Pain Mild Scale (1-3) Al Hydroxide/Mg Hydroxide (Magnesium Hydrox/Alum Hydrox 30 Ml Oral.Susp) 30 ml PO Q6H PRN PRN Reason: Heartburn/Nausea Aripiprazole (Aripiprazole 5 Mg Tablet) 5 mg PO DAILY [facility] Last Admin: 05/29/24 08:43 Dose: 5 mg Aspirin (Aspirin Enteric Coated 81 Mg Tablet.Dr) 81 mg PO DAILY [facility] Last Admin: 05/29/24 08:43 Dose: 81 mg Hydroxyzine HCl (Hydroxyzine Hcl 25 Mg Tablet) 25 mg PO Q6H PRN PRN Reason: Anxiety Magnesium Hydroxide (Milk Of Magnesia 30 Ml Oral.Susp) 30 ml PO DAILY PRN PRN Reason: Constipation Nicotine Polacrilex (Nicotine Polacrilex 2 Mg Gum) 2 mg BUCCAL Q2H PRN PRN Reason: Nicotine Cravings Trazodone HCl (Trazodone Hcl 50 Mg Tablet) 50 mg PO BEDTIME MRX1 PRN PRN Reason: Insomnia Last Admin: 05/28/24 21:18 Dose: 50 mg Venlafaxine HCl (Venlafaxine Hcl Er 150 Mg Cap.Er.24h) 150 mg PO DAILY [facility] Last Admin: 05/29/24 08:43 Dose: 150 mg Home Medications ?Medication ?Instructions ?Recorded ?Confirmed ?Last Taken ?Type venlafaxine 150 mg 150 mg PO DAILY 06/04/23 05/27/24 05/26/24 09:00 History capsule,extended release 24 hr aspirin 81 mg tablet,delayed 81 mg PO DAILY 05/27/24 05/27/24 05/26/24 09:00 History release Physical Exam Vital Signs: Vital Signs: Last Vital Signs Temp 98.4 F 05/29/24 08:00 Pulse 88 05/29/24 08:00 Resp 16 05/29/24 08:00 BP 138/80 05/29/24 08:00 Pulse Ox 99 05/29/24 08:00 O2 Del Method Room Air 05/29/24 08:00 BMI result Body Mass Index 22.7 Const: General: cooperative, healthy appearing and no acute distress Resp: Effort & Inspection: normal respiratory effort and able to speak in complete sentences Cardio: Rate: regular rate Peripheral pulses: Peripheral pulses 2+ throughout GI: Palpation (GI): Soft to palpation Skin: Lesions: no lesions Rashes: no rashes Extrem: Other: Left ankle incision sites are c/d/i. No erythema or edema. No signs of infection. Able to slightly dorsi/plantar felx. Sensation intact. Pedal pulse intact. Results Labs 05/26/24 23:30 05/28/24 07:13 Labs: H & H 05/26/24 Range/Units 23:30 Hgb 13.7 (12.0-16.0) g/dl Hct 38.8 (37.0-47.0) % All other labs normal. Assessment and Plan (1) Status post open reduction with internal fixation (ORIF) of fracture of ankle: Status: Acute No signs of infection X-rays intact orthopedic hardware with routine healing Incision sites are c/d/i Continue NWB in boot as directed by her surgeon Boot must remain on at all times including sleep F/u out patient with surgeon Dr. Kelly at [facility] No additional orthopedic intervention needed at this time (2) Major depressive disorder, recurrent severe without psychotic features: Status: Acute (3) OCD (obsessive compulsive disorder): Qualifiers: Obsessive-compulsive disorder type: unspecified Qualified Code(s): F42.9 - Obsessive-compulsive disorder, unspecified Status: Acute (4) Depression: Status: Acute Procedures Date of Service Date of Service: 05/29/24
--- NOTE | 2024-05-29 13:38 | HO.PSYCHPN ---
Subjective Subjective Date of Service: 05/29/24 Reason For Visit: depression Subjective Notes: Conditional Voluntary Interim History: The nursing staff reported the patient had been dysphoric, she was on the medical floor due to a fracture in her ankle. Today I consulted orthopedics since we were not sure how much weight she can handle on her fracture ankle. X-rays were ordered by the orthopedic team. On interview we discussed exacerbation of her depression, I offer her to restart her on ECT. Historically she did very well on ECT. Mental Status Exam Mental Status Exam Patient Appearance: Appropriate Patient Orientation: Person and Situation Level of Consciousness: Awake and Appropriate Patient Behavior: Guarded and Passive Mood Description: Withdrawn Affect Description: Constricted Patient Cognition Impaired: Yes Ability to Follow Directions: Good Speech Pattern: Clear Hallucinations: None Delusions: Not Present Thought Process: Distracted and Slowed Thinking Thought Content: positive for [place] and positive for Poverty of Content Judgement: Fair Diagnostics Vital Signs (24Hr): Vital Signs - 24 hr 05/28/24 20:00 05/28/24 22:04 05/29/24 08:00 Temperature 97.5 F 98.4 F Pulse Rate 87 88 Respiratory Rate 16 16 16 Blood Pressure 179/82 H 152/72 H 138/80 Pulse Oximetry 98 99 Oxygen Delivery Method Room Air Room Air BMI result Body Mass Index 22.7 Labs 05/26/24 23:30 05/28/24 07:13 Labs: Laboratory Results - last 48 hr 05/28/24 07:13 Sodium 136 Potassium 4.4 Chloride 103 Carbon Dioxide 23 Anion Gap 14 BUN 17 H Creatinine 0.88 Estim Creat Clear Calc 43.3 Estimated GFR > 60 Fasting Glucose 104 H Estimat Average Glucose 111 Hemoglobin A1c % 5.5 Calcium 9.4 Total Bilirubin 0.5 AST 36 H ALT 35 H Alkaline Phosphatase 91 Total Protein 6.0 L Albumin 3.9 Triglycerides 44 Cholesterol 212 H LDL Cholesterol, Calc 115 H HDL Cholesterol 89 Vitamin B12 555 Folate 6.3 TSH 3.73 Free T4 1.12 Imaging Radiology Impressions: ITS Impressions Ankle X-Ray 05/29/24 10:05 IMPRESSION: 1. Medial and lateral malleolar orthopedic hardware without evidence of complication. 2. Healing medial and lateral malleolar fractures. 3. Circumferential soft tissue swelling and small tibiotalar joint effusion. Electronically signed by: Chris Canela MD 05/29/2024 01:24 PM [facility] Medications Medications Current Medications Acetaminophen (Acetaminophen 325 Mg Tablet) 650 mg PO Q6H PRN PRN Reason: Headache/Pain Mild Scale (1-3) Al Hydroxide/Mg Hydroxide (Magnesium Hydrox/Alum Hydrox 30 Ml Oral.Susp) 30 ml PO Q6H PRN PRN Reason: Heartburn/Nausea Aripiprazole (Aripiprazole 5 Mg Tablet) 5 mg PO DAILY [facility] Last Admin: 05/29/24 08:43 Dose: 5 mg Aspirin (Aspirin Enteric Coated 81 Mg Tablet.Dr) 81 mg PO DAILY [facility] Last Admin: 05/29/24 08:43 Dose: 81 mg Hydroxyzine HCl (Hydroxyzine Hcl 25 Mg Tablet) 25 mg PO Q6H PRN PRN Reason: Anxiety Magnesium Hydroxide (Milk Of Magnesia 30 Ml Oral.Susp) 30 ml PO DAILY PRN PRN Reason: Constipation Nicotine Polacrilex (Nicotine Polacrilex 2 Mg Gum) 2 mg BUCCAL Q2H PRN PRN Reason: Nicotine Cravings Trazodone HCl (Trazodone Hcl 50 Mg Tablet) 50 mg PO BEDTIME MRX1 PRN PRN Reason: Insomnia Last Admin: 05/28/24 21:18 Dose: 50 mg Venlafaxine HCl (Venlafaxine Hcl Er 150 Mg Cap.Er.24h) 150 mg PO DAILY [facility] Last Admin: 05/29/24 08:43 Dose: 150 mg Allergies Allergies Allergy/AdvReac Type Severity Reaction Status Date / Time No Known Allergies Allergy Verified 05/26/24 20:50 [No Known Allergies*] Assessment & Plan Assessment & Plan (1) Status post open reduction with internal fixation (ORIF) of fracture of ankle: Status: Acute Code(s): Z98.890 - Other specified postprocedural states; Z87.81 - Personal history of (healed) traumatic fracture Assessment and Plan: No signs of infection X-rays intact orthopedic hardware with routine healing Incision sites are c/d/i Continue NWB in boot as directed by her surgeon Boot must remain on at all times including sleep F/u out patient with surgeon Dr. Kelly at [facility] No additional orthopedic intervention needed at this time (2) Major depressive disorder, recurrent severe without psychotic features: Status: Acute Code(s): F33.2 - Major depressive disorder, recurrent severe without psychotic features (3) OCD (obsessive compulsive disorder): Qualifiers: Obsessive-compulsive disorder type: unspecified Qualified Code(s): F42.9 - Obsessive-compulsive disorder, unspecified Status: Acute Code(s): F42.9 - Obsessive-compulsive disorder, unspecified (4) Depression: Status: Acute Code(s): F32.A - Depression, unspecified Plan The patient is a middle-aged female with a past history of major depressive disorder who historically did very well on ECT and she was receiving ECT maintenance. She recently relapsed in her depressive symptoms and needed to be admitted for treatment due to suicidal ideation. Plan 1. The patient is able to contract for safety so we are going to place her on 15 minute checks. 2. Follow-up with orthopedic team. 3. Referral for ECT 4. Continue with same antidepressants. Reason for continued inpatient stay Substantial Risk for: inability to function, rapid decompensation and med/psych decompensation Time Spent With Patient Time: Total time managing care of this patient today __20__ minutes.
[2024-05-29 20:00] VITALS: BP 132/67; PULSE 85; RESP 18; TEMP 36.1; O2SAT 97
[2024-05-30 08:00] VITALS: BP 137/87; PULSE 89; RESP 18; TEMP 36.7; O2SAT 97
[2024-05-30] MEDS: ARIPiprazole 5 MG TABLET PO (08:09)
[2024-05-30] MEDS: Venlafaxine HCl ER 150 MG CAP.ER.24H PO (08:09)
[2024-05-30] MEDS: Aspirin Enteric Coated 81 MG TABLET.DR PO (08:09)
--- NOTE | 2024-05-30 13:31 | P.PNPSI_ITS ---
Subjective Subjective Date of Service: 05/30/24 Reason For Visit: depression Subjective Notes: Conditional Voluntary Interim History: The nursing staff reported the patient has been anxious depressed, soft spoken. The health and social care teacher reported that she lives with her who is demented. On interview the patient reports that she is feeling depressed, she scheduled for ECT tomorrow. Mental Status Exam Mental Status Exam Patient Appearance: Appropriate Patient Orientation: Person and Situation Level of Consciousness: Awake and Appropriate Patient Behavior: Guarded and Passive Mood Description: Withdrawn Affect Description: Constricted Patient Cognition Impaired: Yes Ability to Follow Directions: Good Speech Pattern: Clear Hallucinations: None Delusions: Not Present Thought Process: Distracted and Slowed Thinking Thought Content: positive for [place] and positive for Poverty of Content Judgement: Fair Diagnostics Vital Signs (24Hr): Vital Signs - 24 hr 05/29/24 20:00 05/30/24 08:00 Temperature 96.9 F 98.1 F Pulse Rate 85 89 Respiratory Rate 18 18 Blood Pressure 132/67 137/87 Pulse Oximetry 97 97 Oxygen Delivery Method Room Air Room Air BMI result Body Mass Index 22.7 Labs 05/26/24 23:30 05/28/24 07:13 Imaging Radiology Impressions: ITS Impressions Ankle X-Ray 05/29/24 10:05 IMPRESSION: 1. Medial and lateral malleolar orthopedic hardware without evidence of complication. 2. Healing medial and lateral malleolar fractures. 3. Circumferential soft tissue swelling and small tibiotalar joint effusion. Electronically signed by: Chris Canela MD 05/29/2024 01:24 PM [facility] Medications Medications Current Medications Acetaminophen (Acetaminophen 325 Mg Tablet) 650 mg PO Q6H PRN PRN Reason: Headache/Pain Mild Scale (1-3) Al Hydroxide/Mg Hydroxide (Magnesium Hydrox/Alum Hydrox 30 Ml Oral.Susp) 30 ml PO Q6H PRN PRN Reason: Heartburn/Nausea Aripiprazole (Aripiprazole 5 Mg Tablet) 5 mg PO DAILY [facility] Last Admin: 05/30/24 08:09 Dose: 5 mg Aspirin (Aspirin Enteric Coated 81 Mg Tablet.Dr) 81 mg PO DAILY [facility] Last Admin: 05/30/24 08:09 Dose: 81 mg Hydroxyzine HCl (Hydroxyzine Hcl 25 Mg Tablet) 25 mg PO Q6H PRN PRN Reason: Anxiety Magnesium Hydroxide (Milk Of Magnesia 30 Ml Oral.Susp) 30 ml PO DAILY PRN PRN Reason: Constipation Nicotine Polacrilex (Nicotine Polacrilex 2 Mg Gum) 2 mg BUCCAL Q2H PRN PRN Reason: Nicotine Cravings Trazodone HCl (Trazodone Hcl 50 Mg Tablet) 50 mg PO BEDTIME MRX1 PRN PRN Reason: Insomnia Last Admin: 05/28/24 21:18 Dose: 50 mg Venlafaxine HCl (Venlafaxine Hcl Er 150 Mg Cap.Er.24h) 150 mg PO DAILY [facility] Last Admin: 05/30/24 08:09 Dose: 150 mg Allergies Allergies Allergy/AdvReac Type Severity Reaction Status Date / Time No Known Allergies Allergy Verified 05/26/24 20:50 [No Known Allergies*] Assessment & Plan Assessment & Plan (1) Status post open reduction with internal fixation (ORIF) of fracture of ankle: Status: Acute Code(s): Z98.890 - Other specified postprocedural states; Z87.81 - Personal history of (healed) traumatic fracture Assessment and Plan: No signs of infection X-rays intact orthopedic hardware with routine healing Incision sites are c/d/i Continue NWB in boot as directed by her surgeon Boot must remain on at all times including sleep F/u out patient with surgeon Dr. Kelly at [facility] No additional orthopedic intervention needed at this time (2) Major depressive disorder, recurrent severe without psychotic features: Status: Acute Code(s): F33.2 - Major depressive disorder, recurrent severe without psychotic features (3) OCD (obsessive compulsive disorder): Qualifiers: Obsessive-compulsive disorder type: unspecified Qualified Code(s): F 42.9 - Obsessive-compulsive disorder, unspecified Status: Acute Code(s): F42.9 - Obsessive-compulsive disorder, unspecified (4) Depression: Status: Acute Code(s): F32.A - Depression, unspecified Plan The patient is a middle-aged female with a past history of major depressive disorder who historically did very well on ECT and she was receiving ECT maintenance. She recently relapsed in her depressive symptoms and needed to be admitted for treatment due to suicidal ideation. Plan 1. The patient is able to contract for safety so we are going to place her on 15 minute checks. 2. Follow-up with orthopedic team. 3. Referral for ECT 4. Continue with same antidepressants. Reason for continued inpatient stay Substantial Risk for: inability to function, rapid decompensation and med/psych decompensation Time Spent With Patient Time: Total time managing care of this patient today __20__ minutes.
[2024-05-30] MEDS: Milk of Magnesia 30 ML ORAL.SUSP PO (14:37)
[2024-05-30 20:00] VITALS: BP 143/65; PULSE 84; RESP 17; TEMP 36.3; O2SAT 92
[2024-05-31] VITALS (9 sets, daily range): BP systolic 122–186; BP diastolic 70–82; PULSE 76–93; RESP 12–18; TEMP 36.5–37.1; O2SAT 92–98
--- NOTE | 2024-05-31 11:35 | P.PNPSI_ITS ---
Subjective Subjective Date of Service: 05/31/24 Reason For Visit: depression Subjective Notes: Conditional Voluntary Interim History: The nursing staff reported that she remains depressed, she was scheduled for ECT. On interview the patient denies side effects with the last procedure. Still dysphoric. Mental Status Exam Mental Status Exam Patient Appearance: Appropriate Patient Orientation: Person and Situation Level of Consciousness: Awake and Appropriate Patient Behavior: Guarded and Passive Mood Description: Withdrawn Affect Description: Constricted Patient Cognition Impaired: Yes Ability to Follow Directions: Good Speech Pattern: Clear Hallucinations: None Delusions: Not Present Thought Process: Distracted and Slowed Thinking Thought Content: positive for [place] and positive for Poverty of Content Judgement: Fair Diagnostics Vital Signs (24Hr): Vital Signs - 24 hr 05/30/24 20:00 05/31/24 07:50 Temperature 97.4 F 97.9 F Pulse Rate 84 82 Respiratory Rate 17 18 Blood Pressure 143/65 H 150/70 H Pulse Oximetry 92 98 Oxygen Delivery Method Room Air Room Air BMI result Body Mass Index 22.7 Labs 05/26/24 23:30 05/28/24 07:13 Imaging Radiology Impressions: ITS Impressions Ankle X-Ray 05/29/24 10:05 IMPRESSION: 1. Medial and lateral malleolar orthopedic hardware without evidence of complication. 2. Healing medial and lateral malleolar fractures. 3. Circumferential soft tissue swelling and small tibiotalar joint effusion. Electronically signed by: Chris Canela MD 05/29/2024 01:24 PM [facility] Medications Medications Current Medications Acetaminophen (Acetaminophen 325 Mg Tablet) 650 mg PO Q6H PRN PRN Reason: Headache/Pain Mild Scale (1-3) Al Hydroxide/Mg Hydroxide (Magnesium Hydrox/Alum Hydrox 30 Ml Oral.Susp) 30 ml PO Q6H PRN PRN Reason: Heartburn/Nausea Aripiprazole (Aripiprazole 5 Mg Tablet) 5 mg PO DAILY [facility] Last Admin: 05/31/24 08:35 Dose: Not Given Aspirin (Aspirin Enteric Coated 81 Mg Tablet.Dr) 81 mg PO DAILY [facility] Last Admin: 05/31/24 08:35 Dose: Not Given Hydroxyzine HCl (Hydroxyzine Hcl 25 Mg Tablet) 25 mg PO Q6H PRN PRN Reason: Anxiety Magnesium Hydroxide (Milk Of Magnesia 30 Ml Oral.Susp) 30 ml PO DAILY PRN PRN Reason: Constipation Last Admin: 05/30/24 14:37 Dose: 30 ml Nicotine Polacrilex (Nicotine Polacrilex 2 Mg Gum) 2 mg BUCCAL Q2H PRN PRN Reason: Nicotine Cravings Trazodone HCl (Trazodone Hcl 50 Mg Tablet) 50 mg PO BEDTIME MRX1 PRN PRN Reason: Insomnia Last Admin: 05/28/24 21:18 Dose: 50 mg Venlafaxine HCl (Venlafaxine Hcl Er 150 Mg Cap.Er.24h) 150 mg PO DAILY [facility] Last Admin: 05/31/24 08:35 Dose: Not Given Allergies Allergies Allergy/AdvReac Type Severity Reaction Status Date / Time No Known Allergies Allergy Verified 05/26/24 20:50 [No Known Allergies*] Assessment & Plan Assessment & Plan (1) Status post open reduction with internal fixation (ORIF) of fracture of ankle: Status: Acute Code(s): Z98.890 - Other specified postprocedural states; Z87.81 - Personal history of (healed) traumatic fracture Assessment and Plan: No signs of infection X-rays intact orthopedic hardware with routine healing Incision sites are c/d/i Continue NWB in boot as directed by her surgeon Boot must remain on at all times including sleep F/u out patient with surgeon Dr. Kelly at [facility] No additional orthopedic intervention needed at this time (2) Major depressive disorder, recurrent severe without psychotic features: Status: Acute Code(s): F33.2 - Major depressive disorder, recurrent severe without psychotic features (3) OCD (obsessive compulsive disorder): Qualifiers: Obsessive-compulsive disorder type: unspecified Qualified Code(s): F 42.9 - Obsessive-compulsive disorder, unspecified Status: Acute Code(s): F42.9 - Obsessive-compulsive disorder, unspecified (4) Depression: Status: Acute Code(s): F32.A - Depression, unspecified Plan The patient is a middle-aged female with a past history of major depressive disorder who historically did very well on ECT and she was receiving ECT maintenance. She recently relapsed in her depressive symptoms and needed to be admitted for treatment due to suicidal ideation. Plan 1. The patient is able to contract for safety so we are going to place her on 15 minute checks. 2. Follow-up with orthopedic team. 3. Referral for ECT 4. Continue with same antidepressants. Reason for continued inpatient stay Substantial Risk for: inability to function, rapid decompensation and med/psych decompensation Time Spent With Patient Time: Total time managing care of this patient today __20__ minutes.
--- NOTE | 2024-05-31 14:03 | HO.ANESPROP2 ---
HPI - Anesthesia Eval Consult details Narrative: For ECT PMFSH Active Problems Active Problems: All Active Problems Status post open reduction with internal fixation (ORIF) of fracture of ankle (Acute) Pre-op evaluation (Acute) Depression (Acute) Major depressive disorder, recurrent severe without psychotic features (Acute) OCD (obsessive compulsive disorder) (Acute) Abnormal finding on EKG (Acute) Past Medical History Medical History OCD (obsessive compulsive disorder) Major depressive disorder, recurrent severe without psychotic features S/P ECT (electroconvulsive therapy) Family History Family History Mother CHF (congestive heart failure) Family history of problems with anesthesia: No Surgical History Surgical History No history of previous surgery History of Problems with Anesthesia: No Social History Social History Household Members: Spouse Housing: Condominium Housing Other:: [facility] community Do you presently have visiting nurse or other home services: No Patient Tobacco Use Status: Never used Tobacco Smoked in Last 30 Days: No Use of substances other than those prescribed or required for medical reasons: No Currently Displaying Signs/Symptoms of Drug Intoxication Withdrawal: No Any prior treatment program specific to substance use: No Have you been hit, kicked, punched, or otherwise hurt by someone within the past year? If so, by whom?: No Do you feel safe in your current relationship?: Yes Is there a partner from a previous relationship who is making you feel unsafe now?: No Are you made to feel afraid or neglected: No Are you DNR?: No Advance Directives: No Advance Directives Information Provided: No Do you have thoughts of harming others: None Do you have a plan to hurt others: No Plan Recently lost weight without trying: No Eating poorly because of decreased appetite: No Nutrition Risks: No Nutritional Risk Patient : No : No Poor oral hygiene: No service: No Sexual orientation: Straight/Heterosexual Meds Allergies Allergy/AdvReac Type Severity Reaction Status Date / Time No Known Allergies Allergy Verified 05/26/24 20:50 [No Known Allergies*] Active Medications: Current Medications Acetaminophen (Acetaminophen 325 Mg Tablet) 650 mg PO Q6H PRN PRN Reason: Headache/Pain Mild Scale (1-3) Al Hydroxide/Mg Hydroxide (Magnesium Hydrox/Alum Hydrox 30 Ml Oral.Susp) 30 ml PO Q6H PRN PRN Reason: Heartburn/Nausea Aripiprazole (Aripiprazole 5 Mg Tablet) 5 mg PO DAILY [facility] Last Admin: 05/31/24 08:35 Dose: Not Given Aspirin (Aspirin Enteric Coated 81 Mg Tablet.Dr) 81 mg PO DAILY [facility] Last Admin: 05/31/24 08:35 Dose: Not Given Hydroxyzine HCl (Hydroxyzine Hcl 25 Mg Tablet) 25 mg PO Q6H PRN PRN Reason: Anxiety Magnesium Hydroxide (Milk Of Magnesia 30 Ml Oral.Susp) 30 ml PO DAILY PRN PRN Reason: Constipation Last Admin: 05/30/24 14:37 Dose: 30 ml Nicotine Polacrilex (Nicotine Polacrilex 2 Mg Gum) 2 mg BUCCAL Q2H PRN PRN Reason: Nicotine Cravings Trazodone HCl (Trazodone Hcl 50 Mg Tablet) 50 mg PO BEDTIME MRX1 PRN PRN Reason: Insomnia Last Admin: 05/28/24 21:18 Dose: 50 mg Venlafaxine HCl (Venlafaxine Hcl Er 150 Mg Cap.Er.24h) 150 mg PO DAILY [facility] Last Admin: 05/31/24 08:35 Dose: Not Given Home Medications ?Medication ?Instructions ?Recorded ?Confirmed ?Last Taken ?Type venlafaxine 150 mg 150 mg PO DAILY 06/04/23 05/27/24 05/26/24 09:00 History capsule,extended release 24 hr aspirin 81 mg tablet,delayed 81 mg PO DAILY 05/27/24 05/27/24 05/26/24 09:00 History release Exam Height,Weight and Vital Signs: Height 5 ft 4 in Weight 60.044 kg Last Vital Signs Temp 98.0 F 05/31/24 13:50 Pulse 93 05/31/24 13:50 Resp 14 05/31/24 13:50 BP 186/79 H 05/31/24 13:50 Pulse Ox 97 05/31/24 13:50 O2 Del Method Room Air 05/31/24 13:50 Pertinent Lab Results Pertinent Lab Results: Laboratory Tests 05/26/24 05/26/24 05/27/24 23:04 23:30 08:22 WBC 8.6 RBC 4.42 Hgb 13.7 Hct 38.8 MCV 87.8 MCH 31.0 MCHC 35.3 H RDW 12.7 Plt Count 271 D MPV 10.7 Immature Gran % (Auto) 0.2 Neut % (Auto) 55.3 Lymph % (Auto) 34.0 [place] % (Auto) 9.2 Eos % (Auto) 0.8 Baso % (Auto) 0.5 Lymph # (Auto) 2.9 [place] # (Auto) 0.8 Eos # (Auto) 0.1 Baso # (Auto) 0.0 Abs Immat Gran (auto) 0.02 Absolute Neuts (auto) 4.8 Absolute Nucleated RBC 0.000 Nucleated RBC % (auto) 0.0 Sodium 132 L 137 Potassium 4.5 4.5 Chloride 98 102 Carbon Dioxide 24 26 Anion Gap 15 14 BUN 18 H 14 Creatinine 0.97 1.00 Estim Creat Clear Calc 42.4 41.1 Estimated GFR 55 53 Random Glucose 98 100 Fasting Glucose Estimat Average Glucose Hemoglobin A1c % Osmolality 283 Calcium 9.3 9.3 Total Bilirubin 0.4 0.6 AST 27 29 ALT 26 28 Alkaline Phosphatase 98 90 Total Protein 6.1 L 5.9 L Albumin 3.9 3.7 Triglycerides Cholesterol LDL Cholesterol, Calc HDL Cholesterol Vitamin B12 Folate TSH Free T4 Urine Color Yellow Urine Appearance Clear Urine pH 5.5 Ur Specific [place] 1.010 Urine Protein Negative Urine Glucose (UA) Negative Urine Ketones Negative Urine Blood Negative Urine Nitrite Negative Ur Leukocyte Esterase Negative Urine Opiates Screen Not Detected Ur Buprenorphine Scrn Not Detected Ur Oxycodone Screen Not Detected Urine Methadone Screen Not Detected Urine Fentanyl Screen Not Detected Ur Barbiturates Screen Not Detected Ur Phencyclidine Scrn Not Detected Ur Amphetamines Screen Not Detected U Benzodiazepines Scrn Not Detected Urine Cocaine Screen Not Detected U Marijuana (THC) Screen Not Detected Ethyl Alcohol < 10 05/28/24 07:13 WBC RBC Hgb Hct MCV MCH MCHC RDW Plt Count MPV Immature Gran % (Auto) Neut % (Auto) Lymph % (Auto) [place] % (Auto) Eos % (Auto) Baso % (Auto) Lymph # (Auto) [place] # (Auto) Eos # (Auto) Baso # (Auto) Abs Immat Gran (auto) Absolute Neuts (auto) Absolute Nucleated RBC Nucleated RBC % (auto) Sodium 136 Potassium 4.4 Chloride 103 Carbon Dioxide 23 Anion Gap 14 BUN 17 H Creatinine 0.88 Estim Creat Clear Calc 43.3 Estimated GFR > 60 Random Glucose Fasting Glucose 104 H Estimat Average Glucose 111 Hemoglobin A1c % 5.5 Osmolality Calcium 9.4 Total Bilirubin 0.5 AST 36 H ALT 35 H Alkaline Phosphatase 91 Total Protein 6.0 L Albumin 3.9 Triglycerides 44 Cholesterol 212 H LDL Cholesterol, Calc 115 H HDL Cholesterol 89 Vitamin B12 555 Folate 6.3 TSH 3.73 Free T4 1.12 Urine Color Urine Appearance Urine pH Ur Specific [place] Urine Protein Urine Glucose (UA) Urine Ketones Urine Blood Urine Nitrite Ur Leukocyte Esterase Urine Opiates Screen Ur Buprenorphine Scrn Ur Oxycodone Screen Urine Methadone Screen Urine Fentanyl Screen Ur Barbiturates Screen Ur Phencyclidine Scrn Ur Amphetamines Screen U Benzodiazepines Scrn Urine Cocaine Screen U Marijuana (THC) Screen Ethyl Alcohol Airway Mallampati Class: II TM Dist: >3cm Neck ROM: Full Loose/Missing/Broken Teeth: No Heart: ok Lungs: ok Assessment and Plan Assessment Anesthesia Assessment: Anesthesia Plan Discussed and Chart Reviewed Final Anesthetic Review Family History of Problems with Anesthesia: No History of Problems with Anesthesia: No NPO: Yes ASA Class: III Final Preanesthetic Review: No Changes in Pt Med Stat, Meds/Allgs Chart Reviewed, Consent Obtained/Reviewed and Anes Risks/Benef Reviewed Patient Risk: Intermediate Procedure Risk: Intermediate Anesthetic Plan Anesthetic Plan: GA and Agree w/ Assess. and Plan Disposition: Standard PACU
--- NOTE | 2024-05-31 14:03 | MHC.SHP ---
Pre-Procedural Eval Section A - 24 Hr Update-Section A only Date of Service: 05/31/24 The patient is an INPATIENT: Yes Changes since office visit: Yes New Medical Problems, Yes Changes in Medication and Yes Patient answered all questions; No Cold of Flu in the past 2 weeks The patient has been examined within 24 hours of the surgical procedure. The History & Physical has been completed within 30 days and I have reviewed it.: Yes Section B - Complete if H&P > 30 days Chief Complaint: depression Allergies: Allergies Allergy/AdvReac Type Severity Reaction Status Date / Time No Known Allergies Allergy Verified 05/26/24 20:50 [No Known Allergies*] Plan I have reviewed the history and physical and performed a pertinent physical examination on my patient. No changes have occurred unless specified. Time Spent With Patient Time: Total time managing care of this patient today ____ minutes.
--- NOTE | 2024-05-31 14:32 | HO.ECTPROC ---
ECT Procedure Note Diagnosis/Treatment Date of Service: 05/31/24 Diagnosis: Major Depressive Disorder Current Treatment Number: 1 Treatment: Series Interval Clinical Notes: Pt with severe depression guilt passive si has broken thru effexor and abilify tx bf monitor for for response and if tolerates bf Time: Total time managing care of this patient today _30___ minutes. ECT Settings Device: THYMATRON DGx Electrode Placement: Bifrontal Program/Pulse Width: 0.50 Energy Percent: 40 Seizure Duration By EEG (in seconds): 72 Medications Administration General Anesthetic: Etomidate (12) Muscle Relaxant: Succinylcholine (60) Ancillary Medications Anti-emetics: Zofran - Pre ECT Miscillaneous Medications: Propofol (30 mg) Airway Management Airway Management: Bag Mask Ventilation Treatment Recommendations Energy Percent: 30 Notes: cont tx series suggest alt antidep trial and augmentation Pt Tolerated Procedure w/o Issue: Yes
[2024-05-31] MEDS: Milk of Magnesia 30 ML ORAL.SUSP PO (22:20)
--- NOTE | 2024-06-01 08:16 | HO.POSTANES ---
Post Anesthesia Evaluation Post Anesthesia Evaluation Date of Service: 06/01/24 Anesthesia: General Mental Status: Awake Pain Control: Satisfactory Nausea/Vomiting: None Hydration: Adequate Anesthesia-Related Issues: No Anes. Related Issues
[2024-06-01 08:30] VITALS: BP 174/76; PULSE 81; RESP 18; TEMP 36.7; O2SAT 100
[2024-06-01] MEDS: Aspirin Enteric Coated 81 MG TABLET.DR PO (08:51)
[2024-06-01] MEDS: ARIPiprazole 5 MG TABLET PO (08:52)
[2024-06-01] MEDS: Venlafaxine HCl ER 150 MG CAP.ER.24H PO (08:52)
--- NOTE | 2024-06-01 13:51 | P.PNPSI_ITS ---
Subjective Subjective Date of Service: 06/01/24 Reason For Visit: depression Subjective Notes: Conditional Voluntary Interim History: The nursing staff reported the patient had been brighter, she slept 7 hours after ECT. The occupational therapist reported that they are working called me transfer safely since she has a recent fracture in the ankles. On interview the patient denies new symptoms she looks much better with a brighter affect smiling. Mental Status Exam Mental Status Exam Patient Appearance: Well Grooomed and Appropriate Patient Orientation: Person and Situation Level of Consciousness: Awake and Appropriate Patient Behavior: Appropriate and Cooperative Mood Description: Constricted Affect Description: Calm Patient Cognition Impaired: Yes Ability to Follow Directions: Good Speech Pattern: Clear Hallucinations: None Delusions: Not Present Thought Process: Linear Thought Content: positive for Circumstantial Judgement: Fair Diagnostics Vital Signs (24Hr): Vital Signs - 24 hr 05/31/24 14:06 05/31/24 14:34 05/31/24 14:39 Temperature 98.8 F Pulse Rate 76 86 Respiratory Rate 13 16 Blood Pressure 157/80 H 124/82 Pulse Oximetry 98 92 94 Oxygen Delivery Method Room Air Nasal Cannula with ETCO2 Nasal Cannula with ETCO2 Oxygen Flow Rate 2 2 05/31/24 14:44 05/31/24 14:49 05/31/24 15:05 Temperature 98.0 F Pulse Rate 85 86 85 Respiratory Rate 12 12 16 Blood Pressure 122/82 124/82 158/76 H Pulse Oximetry 94 95 94 Oxygen Delivery Method Room Air Room Air Room Air Oxygen Flow Rate 05/31/24 20:00 06/01/24 08:30 Temperature 97.7 F 98.1 F Pulse Rate 88 81 Respiratory Rate 16 18 Blood Pressure 153/70 H 174/76 H Pulse Oximetry 98 100 Oxygen Delivery Method Room Air Room Air Oxygen Flow Rate BMI result Body Mass Index 22.7 Labs 05/26/24 23:30 05/28/24 07:13 Imaging Radiology Impressions: ITS Impressions Ankle X-Ray 05/29/24 10:05 IMPRESSION: 1. Medial and lateral malleolar orthopedic hardware without evidence of complication. 2. Healing medial and lateral malleolar fractures. 3. Circumferential soft tissue swelling and small tibiotalar joint effusion. Electronically signed by: Chris Canela MD 05/29/2024 01:24 PM [facility] [place], [place] Medications Medications Current Medications Acetaminophen (Acetaminophen 325 Mg Tablet) 650 mg PO Q6H PRN PRN Reason: Headache/Pain Mild Scale (1-3) Al Hydroxide/Mg Hydroxide (Magnesium Hydrox/Alum Hydrox 30 Ml Oral.Susp) 30 ml PO Q6H PRN PRN Reason: Heartburn/Nausea Aripiprazole (Aripiprazole 5 Mg Tablet) 5 mg PO DAILY [facility] Last Admin: 06/01/24 08:52 Dose: 5 mg Aspirin (Aspirin Enteric Coated 81 Mg Tablet.Dr) 81 mg PO DAILY [facility] Last Admin: 06/01/24 08:51 Dose: 81 mg Hydroxyzine HCl (Hydroxyzine Hcl 25 Mg Tablet) 25 mg PO Q6H PRN PRN Reason: Anxiety Magnesium Hydroxide (Milk Of Magnesia 30 Ml Oral.Susp) 30 ml PO DAILY PRN PRN Reason: Constipation Last Admin: 05/31/24 22:20 Dose: 30 ml Nicotine Polacrilex (Nicotine Polacrilex 2 Mg Gum) 2 mg BUCCAL Q2H PRN PRN Reason: Nicotine Cravings Trazodone HCl (Trazodone Hcl 50 Mg Tablet) 50 mg PO BEDTIME MRX1 PRN PRN Reason: Insomnia Last Admin: 05/28/24 21:18 Dose: 50 mg Venlafaxine HCl (Venlafaxine Hcl Er 150 Mg Cap.Er.24h) 150 mg PO DAILY [facility] Last Admin: 06/01/24 08:52 Dose: 150 mg Allergies Allergies Allergy/AdvReac Type Severity Reaction Status Date / Time No Known Allergies Allergy Verified 05/26/24 20:50 [No Known Allergies*] Assessment & Plan Assessment & Plan (1) Status post open reduction with internal fixation (ORIF) of fracture of ankle: Status: Acute Code(s): Z98.890 - Other specified postprocedural states; Z87.81 - Personal history of (healed) traumatic fracture Assessment and Plan: No signs of infection X-rays intact orthopedic hardware with routine healing Incision sites are c/d/i Continue NWB in boot as directed by her surgeon Boot must remain on at all times including sleep F/u out patient with surgeon Dr. Kelly at [facility] No additional orthopedic intervention needed at this time (2) Major depressive disorder, recurrent severe without psychotic features: Status: Acute Code(s): F33.2 - Major depressive disorder, recurrent severe without psychotic features (3) OCD (obsessive compulsive disorder): Qualifiers: Obsessive-compulsive disorder type: unspecified Qualified Code(s): F 42.9 - Obsessive-compulsive disorder, unspecified Status: Acute Code(s): F42.9 - Obsessive-compulsive disorder, unspecified (4) Depression: Status: Acute Code(s): F32.A - Depression, unspecified Plan The patient is a middle-aged female with a past history of major depressive disorder who historically did very well on ECT and she was receiving ECT maintenance. She recently relapsed in her depressive symptoms and needed to be admitted for treatment due to suicidal ideation. Plan 1. The patient is able to contract for safety so we are going to place her on 15 minute checks. 2. Follow-up with orthopedic team. 3. Referral for ECT ECT restarted, the patient improved after the 1st treatment. 4. Continue with same antidepressants. Reason for continued inpatient stay Substantial Risk for: inability to function, rapid decompensation and med/psych decompensation Time Spent With Patient Time: Total time managing care of this patient today __20__ minutes.
[2024-06-01 15:23] VITALS: BMI 22.7
[2024-06-01 20:00] VITALS: BP 147/72; PULSE 85; RESP 16; TEMP 36.9; O2SAT 97
[2024-06-02] VITALS (9 sets, daily range): BP systolic 126–182; BP diastolic 60–90; PULSE 71–96; RESP 15–20; TEMP 36.2–36.6; O2SAT 95–100
[2024-06-02] MEDS: Lactated Ringers 1,000 ML 100 ML IVCONT (08:16)
--- NOTE | 2024-06-02 08:50 | HO.ANESPROP2 ---
[facility] Active Problems Active Problems: All Active Problems Status post open reduction with internal fixation (ORIF) of fracture of ankle (Acute) Pre-op evaluation (Acute) Depression (Acute) Major depressive disorder, recurrent severe without psychotic features (Acute) OCD (obsessive compulsive disorder) (Acute) Abnormal finding on EKG (Acute) Past Medical History Medical History OCD (obsessive compulsive disorder) Major depressive disorder, recurrent severe without psychotic features S/P ECT (electroconvulsive therapy) Family History Family History Mother CHF (congestive heart failure) Family history of problems with anesthesia: No Surgical History Surgical History No history of previous surgery History of Problems with Anesthesia: No Social History Social History Household Members: Spouse Housing: Condominium Housing Other:: Half-Way community Do you presently have visiting nurse or other home services: No Patient Tobacco Use Status: Never used Tobacco service: No Sexual orientation: Straight/Heterosexual Meds Allergies Allergy/AdvReac Type Severity Reaction Status Date / Time No Known Allergies Allergy Verified 05/26/24 20:50 [No Known Allergies*] Active Medications: Current Medications Acetaminophen (Acetaminophen 325 Mg Tablet) 650 mg PO Q6H PRN PRN Reason: Headache/Pain Mild Scale (1-3) Al Hydroxide/Mg Hydroxide (Magnesium Hydrox/Alum Hydrox 30 Ml Oral.Susp) 30 ml PO Q6H PRN PRN Reason: Heartburn/Nausea Aripiprazole (Aripiprazole 5 Mg Tablet) 5 mg PO DAILY [facility] Last Admin: 06/01/24 08:52 Dose: 5 mg Aspirin (Aspirin Enteric Coated 81 Mg Tablet.Dr) 81 mg PO DAILY [facility] Last Admin: 06/01/24 08:51 Dose: 81 mg Hydroxyzine HCl (Hydroxyzine Hcl 25 Mg Tablet) 25 mg PO Q6H PRN PRN Reason: Anxiety Lactated Ringer's (Lr) 1,000 mls @ 100 mls/hr IVCONT .Q10H [facility] Last Admin: 06/02/24 08:16 Dose: 100 mls/hr Magnesium Hydroxide (Milk Of Magnesia 30 Ml Oral.Susp) 30 ml PO DAILY PRN PRN Reason: Constipation Last Admin: 05/31/24 22:20 Dose: 30 ml Nicotine Polacrilex (Nicotine Polacrilex 2 Mg Gum) 2 mg BUCCAL Q2H PRN PRN Reason: Nicotine Cravings Trazodone HCl (Trazodone Hcl 50 Mg Tablet) 50 mg PO BEDTIME MRX1 PRN PRN Reason: Insomnia Last Admin: 05/28/24 21:18 Dose: 50 mg Venlafaxine HCl (Venlafaxine Hcl Er 150 Mg Cap.Er.24h) 150 mg PO DAILY [facility] Last Admin: 06/01/24 08:52 Dose: 150 mg Home Medications ?Medication ?Instructions ?Recorded ?Confirmed ?Last Taken ?Type venlafaxine 150 mg 150 mg PO DAILY 06/04/23 05/27/24 05/26/24 09:00 History capsule,extended release 24 hr aspirin 81 mg tablet,delayed 81 mg PO DAILY 05/27/24 05/27/24 05/26/24 09:00 History release Exam Height,Weight and Vital Signs: Height 5 ft 4 in Weight 59.874 kg Last Vital Signs Temp 97.1 F 06/02/24 08:03 Pulse 92 06/02/24 08:03 Resp 16 06/02/24 08:03 BP 165/85 H 06/02/24 08:03 Pulse Ox 96 06/02/24 08:03 O2 Del Method Room Air 06/02/24 08:03 O2 Flow Rate 2 05/31/24 14:39 Pertinent Lab Results Pertinent Lab Results: Laboratory Tests 05/26/24 05/26/24 05/27/24 23:04 23:30 08:22 WBC 8.6 RBC 4.42 Hgb 13.7 Hct 38.8 MCV 87.8 MCH 31.0 MCHC 35.3 H RDW 12.7 Plt Count 271 D MPV 10.7 Immature Gran % (Auto) 0.2 Neut % (Auto) 55.3 Lymph % (Auto) 34.0 Stephens % (Auto) 9.2 Eos % (Auto) 0.8 Baso % (Auto) 0.5 Lymph # (Auto) 2.9 Stephens # (Auto) 0.8 Eos # (Auto) 0.1 Baso # (Auto) 0.0 Abs Immat Gran (auto) 0.02 Absolute Neuts (auto) 4.8 Absolute Nucleated RBC 0.000 Nucleated RBC % (auto) 0.0 Sodium 132 L 137 Potassium 4.5 4.5 Chloride 98 102 Carbon Dioxide 24 26 Anion Gap 15 14 BUN 18 H 14 Creatinine 0.97 1.00 Estim Creat Clear Calc 42.4 41.1 Estimated GFR 55 53 Random Glucose 98 100 Fasting Glucose Estimat Average Glucose Hemoglobin A1c % Osmolality 283 Calcium 9.3 9.3 Total Bilirubin 0.4 0.6 AST 27 29 ALT 26 28 Alkaline Phosphatase 98 90 Total Protein 6.1 L 5.9 L Albumin 3.9 3.7 Triglycerides Cholesterol LDL Cholesterol, Calc HDL Cholesterol Vitamin B12 Folate TSH Free T4 Urine Color Yellow Urine Appearance Clear Urine pH 5.5 Ur Specific [place] 1.010 Urine Protein Negative Urine Glucose (UA) Negative Urine Ketones Negative Urine Blood Negative Urine Nitrite Negative Ur Leukocyte Esterase Negative Urine Opiates Screen Not Detected Ur Buprenorphine Scrn Not Detected Ur Oxycodone Screen Not Detected Urine Methadone Screen Not Detected Urine Fentanyl Screen Not Detected Ur Barbiturates Screen Not Detected Ur Phencyclidine Scrn Not Detected Ur Amphetamines Screen Not Detected U Benzodiazepines Scrn Not Detected Urine Cocaine Screen Not Detected U Marijuana (THC) Screen Not Detected Ethyl Alcohol < 10 05/28/24 07:13 WBC RBC Hgb Hct MCV MCH MCHC RDW Plt Count MPV Immature Gran % (Auto) Neut % (Auto) Lymph % (Auto) Stephens % (Auto) Eos % (Auto) Baso % (Auto) Lymph # (Auto) Stephens # (Auto) Eos # (Auto) Baso # (Auto) Abs Immat Gran (auto) Absolute Neuts (auto) Absolute Nucleated RBC Nucleated RBC % (auto) Sodium 136 Potassium 4.4 Chloride 103 Carbon Dioxide 23 Anion Gap 14 BUN 17 H Creatinine 0.88 Estim Creat Clear Calc 43.3 Estimated GFR > 60 Random Glucose Fasting Glucose 104 H Estimat Average Glucose 111 Hemoglobin A1c % 5.5 Osmolality Calcium 9.4 Total Bilirubin 0.5 AST 36 H ALT 35 H Alkaline Phosphatase 91 Total Protein 6.0 L Albumin 3.9 Triglycerides 44 Cholesterol 212 H LDL Cholesterol, Calc 115 H HDL Cholesterol 89 Vitamin B12 555 Folate 6.3 TSH 3.73 Free T4 1.12 Urine Color Urine Appearance Urine pH Ur Specific [place] Urine Protein Urine Glucose (UA) Urine Ketones Urine Blood Urine Nitrite Ur Leukocyte Esterase Urine Opiates Screen Ur Buprenorphine Scrn Ur Oxycodone Screen Urine Methadone Screen Urine Fentanyl Screen Ur Barbiturates Screen Ur Phencyclidine Scrn Ur Amphetamines Screen U Benzodiazepines Scrn Urine Cocaine Screen U Marijuana (THC) Screen Ethyl Alcohol Airway Mallampati Class: II TM Dist: >3cm Neck ROM: Full Loose/Missing/Broken Teeth: No Heart: RRR Lungs: CTA Assessment and Plan Assessment Anesthesia Assessment: Anesthesia Plan Discussed and Chart Reviewed Final Anesthetic Review Family History of Problems with Anesthesia: No History of Problems with Anesthesia: No ASA Class: III Final Preanesthetic Review: Meds/Allgs Chart Reviewed, Consent Obtained/Reviewed and Anes Risks/Benef Reviewed Patient Risk: Intermediate Procedure Risk: Intermediate Anesthetic Plan Anesthetic Plan: GA Disposition: Standard PACU
--- NOTE | 2024-06-02 09:25 | MHC.SHP ---
Pre-Procedural Eval Section A - 24 Hr Update-Section A only Date of Service: 06/02/24 The patient is an INPATIENT: Yes Changes since office visit: Yes Patient answered all questions; No Cold of Flu in the past 2 weeks, No New Medical Problems and No Changes in Medication The patient has been examined within 24 hours of the surgical procedure. The History & Physical has been completed within 30 days and I have reviewed it.: Yes Section B - Complete if H&P > 30 days Chief Complaint: depression Allergies: Allergies Allergy/AdvReac Type Severity Reaction Status Date / Time No Known Allergies Allergy Verified 05/26/24 20:50 [No Known Allergies*] Plan I have reviewed the history and physical and performed a pertinent physical examination on my patient. No changes have occurred unless specified. Time Spent With Patient Time: Total time managing care of this patient today ____ minutes.
--- NOTE | 2024-06-02 09:45 | HO.ECTPROC ---
ECT Procedure Note Diagnosis/Treatment Date of Service: 06/02/24 Previous ECT Date: 05/31/24 Current Treatment Number: 1 Treatment: Series Interval Clinical Notes: pt feels better after first tx cognitively clear hoping to transition to outpt tx soon Time: Total time managing care of this patient today ____ minutes. ECT Settings Device: THYMATRON DGx Electrode Placement: Bifrontal Program/Pulse Width: 0.50 Energy Percent: 35 Seizure Duration By EEG (in seconds): 64 Medications Administration General Anesthetic: Etomidate (12) Muscle Relaxant: Succinylcholine (60) Ancillary Medications Anti-emetics: Zofran - Pre ECT (4) Miscillaneous Medications: Propofol (30) Airway Management Airway Management: Bag Mask Ventilation Treatment Recommendations No Changes Recommended: No change Notes: maintain 0.5 program Pt Tolerated Procedure w/o Issue: Yes
[2024-06-02] MEDS: Venlafaxine HCl ER 150 MG CAP.ER.24H PO (10:56)
[2024-06-02] MEDS: Aspirin Enteric Coated 81 MG TABLET.DR PO (10:56)
[2024-06-02] MEDS: ARIPiprazole 5 MG TABLET PO (10:56)
--- NOTE | 2024-06-02 10:57 | PC.NURSE ---
[facility] vital signs are stable and morning medications were administered as ordered.
--- NOTE | 2024-06-02 11:52 | P.PNPSI_ITS ---
Subjective Subjective Date of Service: 06/02/24 Reason For Visit: depression Subjective Notes: Conditional Voluntary Interim History: The nursing staff reported the patient had been anxious but awake and alert. The occupational therapist reported that she is appropriate in groups and she looks much better. On interview the patient denies new symptoms she had ECT today and she feels much better. We discussed the case with Dr. Chambres and probably she will benefit the change of antipsychotics as an outpatient. So far, she has responded fairly well with ECT. Mental Status Exam Mental Status Exam Patient Appearance: Well Grooomed and Appropriate Patient Orientation: Person and Situation Level of Consciousness: Awake and Appropriate Patient Behavior: Guarded and Passive Mood Description: Withdrawn Affect Description: Constricted Patient Cognition Impaired: Yes Ability to Follow Directions: Good Speech Pattern: Clear Hallucinations: None Delusions: Not Present Thought Process: Distracted and Slowed Thinking Thought Content: positive for [place] and positive for Poverty of Content Judgement: Fair Diagnostics Vital Signs (24Hr): Vital Signs - 24 hr 06/01/24 20:00 06/02/24 07:50 06/02/24 08:03 Temperature 98.5 F 97.8 F 97.1 F Pulse Rate 85 96 92 Respiratory Rate 16 20 16 Blood Pressure 147/72 H 145/68 H 165/85 H Pulse Oximetry 97 96 96 Oxygen Delivery Method Room Air Room Air Room Air Oxygen Flow Rate 06/02/24 09:42 06/02/24 09:47 06/02/24 09:52 Temperature 97.9 F Pulse Rate 80 83 71 Respiratory Rate 18 18 18 Blood Pressure 182/90 H 137/76 139/74 Pulse Oximetry 100 97 97 Oxygen Delivery Method Nasal Cannula with ETCO2 Nasal Cannula with ETCO2 Nasal Cannula with ETCO2 Oxygen Flow Rate 2 2 2 06/02/24 09:57 06/02/24 10:12 06/02/24 10:25 Temperature 97.4 F Pulse Rate 76 76 73 Respiratory Rate 15 16 16 Blood Pressure 138/73 140/79 H 126/60 Pulse Oximetry 98 96 95 Oxygen Delivery Method Nasal Cannula with ETCO2 Room Air Room Air Oxygen Flow Rate 2 06/02/24 10:52 Temperature 97.5 F Pulse Rate 78 Respiratory Rate 18 Blood Pressure 128/68 Pulse Oximetry 96 Oxygen Delivery Method Room Air Oxygen Flow Rate BMI result Body Mass Index 22.7 Labs 05/26/24 23:30 05/28/24 07:13 Imaging Radiology Impressions: ITS Impressions Ankle X-Ray 05/29/24 10:05 IMPRESSION: 1. Medial and lateral malleolar orthopedic hardware without evidence of complication. 2. Healing medial and lateral malleolar fractures. 3. Circumferential soft tissue swelling and small tibiotalar joint effusion. Electronically signed by: Chris Canela MD 05/29/2024 01:24 PM [facility] Medications Medications Current Medications Acetaminophen (Acetaminophen 325 Mg Tablet) 650 mg PO Q6H PRN PRN Reason: Headache/Pain Mild Scale (1-3) Al Hydroxide/Mg Hydroxide (Magnesium Hydrox/Alum Hydrox 30 Ml Oral.Susp) 30 ml PO Q6H PRN PRN Reason: Heartburn/Nausea Aripiprazole (Aripiprazole 5 Mg Tablet) 5 mg PO DAILY [facility] Last Admin: 06/02/24 10:56 Dose: 5 mg Aspirin (Aspirin Enteric Coated 81 Mg Tablet.Dr) 81 mg PO DAILY [facility] Last Admin: 06/02/24 10:56 Dose: 81 mg Hydroxyzine HCl (Hydroxyzine Hcl 25 Mg Tablet) 25 mg PO Q6H PRN PRN Reason: Anxiety Lactated Ringer's (Lr) 1,000 mls @ 100 mls/hr IVCONT .Q10H [facility] Last Infusion: 06/02/24 10:42 Dose: Infused Magnesium Hydroxide (Milk Of Magnesia 30 Ml Oral.Susp) 30 ml PO DAILY PRN PRN Reason: Constipation Last Admin: 05/31/24 22:20 Dose: 30 ml Nicotine Polacrilex (Nicotine Polacrilex 2 Mg Gum) 2 mg BUCCAL Q2H PRN PRN Reason: Nicotine Cravings Trazodone HCl (Trazodone Hcl 50 Mg Tablet) 50 mg PO BEDTIME MRX1 PRN PRN Reason: Insomnia Last Admin: 05/28/24 21:18 Dose: 50 mg Venlafaxine HCl (Venlafaxine Hcl Er 150 Mg Cap.Er.24h) 150 mg PO DAILY [facility] Last Admin: 06/02/24 10:56 Dose: 150 mg Allergies Allergies Allergy/AdvReac Type Severity Reaction Status Date / Time No Known Allergies Allergy Verified 05/26/24 20:50 [No Known Allergies*] Assessment & Plan Assessment & Plan (1) Status post open reduction with internal fixation (ORIF) of fracture of ankle: Status: Acute Code(s): Z98.890 - Other specified postprocedural states; Z87.81 - Personal history of (healed) traumatic fracture Assessment and Plan: No signs of infection X-rays intact orthopedic hardware with routine healing Incision sites are c/d/i Continue NWB in boot as directed by her surgeon Boot must remain on at all times including sleep F/u out patient with surgeon Dr. Kelly at [facility] No additional orthopedic intervention needed at this time (2) Major depressive disorder, recurrent severe without psychotic features: Status: Acute Code(s): F33.2 - Major depressive disorder, recurrent severe without psychotic features (3) OCD (obsessive compulsive disorder): Qualifiers: Obsessive-compulsive disorder type: unspecified Qualified Code(s): F 42.9 - Obsessive-compulsive disorder, unspecified Status: Acute Code(s): F42.9 - Obsessive-compulsive disorder, unspecified (4) Depression: Status: Acute Code(s): F32.A - Depression, unspecified Plan The patient is a middle-aged female with a past history of major depressive disorder who historically did very well on ECT and she was receiving ECT maintenance. She recently relapsed in her depressive symptoms and needed to be admitted for treatment due to suicidal ideation. Plan 1. The patient is able to contract for safety so we are going to place her on 15 minute checks. 2. Follow-up with orthopedic team. 3. Referral for ECT ECT restarted, the patient improved after the 1st treatment. 4. Continue with same antidepressants. Reason for continued inpatient stay Substantial Risk for: inability to function, rapid decompensation and med/psych decompensation Time Spent With Patient Time: Total time managing care of this patient today ___20_ minutes.
--- NOTE | 2024-06-03 06:35 | HO.PSYCHPN ---
Subjective Subjective Date of Service: 06/03/24 Reason For Visit: depression Subjective Notes: Conditional Voluntary Interim History: The nursing staff reported the patient had been fully compliant with treatment, her affect is brighter. On interview the patient denies new symptoms she feels much better since ECT was started. Mental Status Exam Mental Status Exam Patient Appearance: Well Grooomed and Appropriate Patient Orientation: Person and Situation Level of Consciousness: Awake and Appropriate Patient Behavior: Guarded and Passive Mood Description: Withdrawn Affect Description: Constricted Patient Cognition Impaired: Yes Ability to Follow Directions: Good Speech Pattern: Clear Hallucinations: None Delusions: Not Present Thought Process: Distracted and Slowed Thinking Thought Content: positive for Circumstantial Judgement: Fair Diagnostics Vital Signs (24Hr): Vital Signs - 24 hr 06/02/24 07:50 06/02/24 08:03 06/02/24 09:42 Temperature 97.8 F 97.1 F 97.9 F Pulse Rate 96 92 80 Respiratory Rate 20 16 18 Blood Pressure 145/68 H 165/85 H 182/90 H Pulse Oximetry 96 96 100 Oxygen Delivery Method Room Air Room Air Nasal Cannula with ETCO2 Oxygen Flow Rate 2 06/02/24 09:47 06/02/24 09:52 06/02/24 09:57 Temperature Pulse Rate 83 71 76 Respiratory Rate 18 18 15 Blood Pressure 137/76 139/74 138/73 Pulse Oximetry 97 97 98 Oxygen Delivery Method Nasal Cannula with ETCO2 Nasal Cannula with ETCO2 Nasal Cannula with ETCO2 Oxygen Flow Rate 2 2 2 06/02/24 10:12 06/02/24 10:25 06/02/24 10:52 Temperature 97.4 F 97.5 F Pulse Rate 76 73 78 Respiratory Rate 16 16 18 Blood Pressure 140/79 H 126/60 128/68 Pulse Oximetry 96 95 96 Oxygen Delivery Method Room Air Room Air Room Air Oxygen Flow Rate BMI result Body Mass Index 22.7 Labs 05/26/24 23:30 05/28/24 07:13 Imaging Radiology Impressions: ITS Impressions Ankle X-Ray 05/29/24 10:05 IMPRESSION: 1. Medial and lateral malleolar orthopedic hardware without evidence of complication. 2. Healing medial and lateral malleolar fractures. 3. Circumferential soft tissue swelling and small tibiotalar joint effusion. Electronically signed by: Chris Canela MD 05/29/2024 01:24 PM [facility] [place] Medications Medications Current Medications Acetaminophen (Acetaminophen 325 Mg Tablet) 650 mg PO Q6H PRN PRN Reason: Headache/Pain Mild Scale (1-3) Al Hydroxide/Mg Hydroxide (Magnesium Hydrox/Alum Hydrox 30 Ml Oral.Susp) 30 ml PO Q6H PRN PRN Reason: Heartburn/Nausea Aripiprazole (Aripiprazole 5 Mg Tablet) 5 mg PO DAILY [facility] Last Admin: 06/02/24 10:56 Dose: 5 mg Aspirin (Aspirin Enteric Coated 81 Mg Tablet.Dr) 81 mg PO DAILY [facility] Last Admin: 06/02/24 10:56 Dose: 81 mg Hydroxyzine HCl (Hydroxyzine Hcl 25 Mg Tablet) 25 mg PO Q6H PRN PRN Reason: Anxiety Lactated Ringer's (Lr) 1,000 mls @ 100 mls/hr IVCONT .Q10H [facility] Last Admin: 06/03/24 05:10 Dose: Not Given Magnesium Hydroxide (Milk Of Magnesia 30 Ml Oral.Susp) 30 ml PO DAILY PRN PRN Reason: Constipation Last Admin: 05/31/24 22:20 Dose: 30 ml Nicotine Polacrilex (Nicotine Polacrilex 2 Mg Gum) 2 mg BUCCAL Q2H PRN PRN Reason: Nicotine Cravings Trazodone HCl (Trazodone Hcl 50 Mg Tablet) 50 mg PO BEDTIME MRX1 PRN PRN Reason: Insomnia Last Admin: 05/28/24 21:18 Dose: 50 mg Venlafaxine HCl (Venlafaxine Hcl Er 150 Mg Cap.Er.24h) 150 mg PO DAILY [facility] Last Admin: 06/02/24 10:56 Dose: 150 mg Allergies Allergies Allergy/AdvReac Type Severity Reaction Status Date / Time No Known Allergies Allergy Verified 05/26/24 20:50 [No Known Allergies*] Assessment & Plan Assessment & Plan (1) Status post open reduction with internal fixation (ORIF) of fracture of ankle: Status: Acute Code(s): Z98.890 - Other specified postprocedural states; Z87.81 - Personal history of (healed) traumatic fracture Assessment and Plan: No signs of infection X-rays intact orthopedic hardware with routine healing Incision sites are c/d/i Continue NWB in boot as directed by her surgeon Boot must remain on at all times including sleep F/u out patient with surgeon Dr. Kelly at [facility] No additional orthopedic intervention needed at this time (2) Major depressive disorder, recurrent severe without psychotic features: Status: Acute Code(s): F33.2 - Major depressive disorder, recurrent severe without psychotic features (3) OCD (obsessive compulsive disorder): Qualifiers: Obsessive-compulsive disorder type: unspecified Qualified Code(s): F42.9 - Obsessive-compulsive disorder, unspecified Status: Acute Code(s): F42.9 - Obsessive-compulsive disorder, unspecified (4) Depression: Status: Acute Code(s): F32.A - Depression, unspecified Plan The patient is a middle-aged female with a past history of major depressive disorder who historically did very well on ECT and she was receiving ECT maintenance. She recently relapsed in her depressive symptoms and needed to be admitted for treatment due to suicidal ideation. Plan 1. The patient is able to contract for safety so we are going to place her on 15 minute checks. 2. Follow-up with orthopedic team. 3. Referral for ECT ECT restarted, the patient improved after the 1st treatment. 4. Continue with same antidepressants. Reason for continued inpatient stay Substantial Risk for: inability to function, rapid decompensation and med/psych decompensation Time Spent With Patient Time: Total time managing care of this patient today __20__ minutes.
[2024-06-03 08:36] VITALS: BP 130/62; PULSE 89; RESP 15; TEMP 36.8; O2SAT 96
[2024-06-03] MEDS: Aspirin Enteric Coated 81 MG TABLET.DR PO (08:38)
[2024-06-03] MEDS: Venlafaxine HCl ER 150 MG CAP.ER.24H PO (08:38)
[2024-06-03] MEDS: ARIPiprazole 5 MG TABLET PO (08:38)
[2024-06-03 17:46] LABS: Appearance Urine Clear; Color Urine Yellow; Glucose Urine UA Negative (Negative); Leukocyte Esterase Urine Negative (Negative); Nitrite Urine Negative (Negative); PH 6.5 (5.0-9.0); Specific Gravity - Urine 1.025 (1.005-1.025); Urine Blood Negative (Negative); Urine Ketones Negative (Negative); Urine Protein Negative (Neg-Trace)
[2024-06-03 18:02] LABS: Bacteria Urine None Seen (None Seen); Hyaline Casts Urine 0-2 /LPF (0-2); Squamous Epithelial Cell Urine 0-2 /HPF (0-2); WBC Urine 0-5 /HPF (0-5)
[2024-06-03 20:00] VITALS: PULSE 88; RESP 16; TEMP 36.3; O2SAT 96
[2024-06-03 21:13] VITALS: BP 134/63; PULSE 71
[2024-06-04] MEDS: traZODone HCL 50 MG TABLET PO (00:21)
[2024-06-04] MEDS: hydrOXYzine HCL 25 MG TABLET PO (00:21)
[2024-06-04 08:00] VITALS: BP 132/78; PULSE 94; RESP 16; TEMP 36; O2SAT 95
[2024-06-04] MEDS: Aspirin Enteric Coated 81 MG TABLET.DR PO (09:15)
[2024-06-04] MEDS: Venlafaxine HCl ER 150 MG CAP.ER.24H PO (09:15)
[2024-06-04] MEDS: ARIPiprazole 5 MG TABLET PO (09:15)
--- NOTE | 2024-06-04 11:45 | P.PNPSI_ITS ---
Subjective Subjective Date of Service: 06/04/24 Reason For Visit: depression Subjective Notes: Conditional Voluntary Interim History: The nursing staff reported the patient had been pleasant cooperative compliant with treatment. Her mood looks better. On interview the patient denies new symptoms scheduled for ECT tomorrow. Mental Status Exam Mental Status Exam Patient Appearance: Well Grooomed and Appropriate Patient Orientation: Person and Situation Level of Consciousness: Awake Patient Behavior: Appropriate and Cooperative Mood Description: Calm Affect Description: Constricted Patient Cognition Impaired: Yes Ability to Follow Directions: Good Speech Pattern: Clear Hallucinations: None Delusions: Not Present Thought Process: Linear Thought Content: positive for Circumstantial Judgement: Fair Diagnostics Vital Signs (24Hr): Vital Signs - 24 hr 06/03/24 20:00 06/03/24 21:13 06/04/24 08:00 Temperature 97.4 F 96.8 F Pulse Rate 88 71 94 Respiratory Rate 16 16 Blood Pressure 134/63 132/78 Pulse Oximetry 96 95 Oxygen Delivery Method Room Air Room Air BMI result Body Mass Index 22.7 Labs 05/26/24 23:30 05/28/24 07:13 Labs: Laboratory Results - last 48 hr 06/03/24 17:15 Urine Color Yellow Urine Appearance Clear Urine pH 6.5 Ur Specific [place] 1.025 Urine Protein Negative Urine Glucose (UA) Negative Urine Ketones Negative Urine Blood Negative Urine Nitrite Negative Ur Leukocyte Esterase Negative Urine RBC 3-5 H Urine WBC 0-5 Ur Squamous Epith Cells 0-2 Urine Bacteria None Seen Hyaline Casts 0-2 Imaging Radiology Impressions: ITS Impressions Ankle X-Ray 05/29/24 10:05 IMPRESSION: 1. Medial and lateral malleolar orthopedic hardware without evidence of complication. 2. Healing medial and lateral malleolar fractures. 3. Circumferential soft tissue swelling and small tibiotalar joint effusion. Electronically signed by: Chris Canela MD 05/29/2024 01:24 PM [facility] [place] Medications Current Medications Acetaminophen (Acetaminophen 325 Mg Tablet) 650 mg PO Q6H PRN PRN Reason: Headache/Pain Mild Scale (1-3) Al Hydroxide/Mg Hydroxide (Magnesium Hydrox/Alum Hydrox 30 Ml Oral.Susp) 30 ml PO Q6H PRN PRN Reason: Heartburn/Nausea Aripiprazole (Aripiprazole 5 Mg Tablet) 5 mg PO DAILY [facility] Last Admin: 06/04/24 09:15 Dose: 5 mg Aspirin (Aspirin Enteric Coated 81 Mg Tablet.Dr) 81 mg PO DAILY [facility] Last Admin: 06/04/24 09:15 Dose: 81 mg Hydroxyzine HCl (Hydroxyzine Hcl 25 Mg Tablet) 25 mg PO Q6H PRN PRN Reason: Anxiety Last Admin: 06/04/24 00:21 Dose: 25 mg Magnesium Hydroxide (Milk Of Magnesia 30 Ml Oral.Susp) 30 ml PO DAILY PRN PRN Reason: Constipation Last Admin: 05/31/24 22:20 Dose: 30 ml Nicotine Polacrilex (Nicotine Polacrilex 2 Mg Gum) 2 mg BUCCAL Q2H PRN PRN Reason: Nicotine Cravings Trazodone HCl (Trazodone Hcl 50 Mg Tablet) 50 mg PO BEDTIME MRX1 PRN PRN Reason: Insomnia Last Admin: 06/04/24 00:21 Dose: 50 mg Venlafaxine HCl (Venlafaxine Hcl Er 150 Mg Cap.Er.24h) 150 mg PO DAILY [facility] Last Admin: 06/04/24 09:15 Dose: 150 mg Allergies Allergies Allergy/AdvReac Type Severity Reaction Status Date / Time No Known Allergies Allergy Verified 05/26/24 20:50 [No Known Allergies*] Assessment & Plan Assessment & Plan (1) Status post open reduction with internal fixation (ORIF) of fracture of ankle: Status: Acute Code(s): Z98.890 - Other specified postprocedural states; Z87.81 - Personal history of (healed) traumatic fracture Assessment and Plan: No signs of infection X-rays intact orthopedic hardware with routine healing Incision sites are c/d/i Continue NWB in boot as directed by her surgeon Boot must remain on at all times including sleep F/u out patient with surgeon Dr. Kelly at [facility] No additional orthopedic intervention needed at this time (2) Major depressive disorder, recurrent severe without psychotic features: Status: Acute Code(s): F33.2 - Major depressive disorder, recurrent severe without psychotic features (3) OCD (obsessive compulsive disorder): Qualifiers: Obsessive-compulsive disorder type: unspecified Qualified Code(s): F 42.9 - Obsessive-compulsive disorder, unspecified Status: Acute Code(s): F42.9 - Obsessive-compulsive disorder, unspecified (4) Depression: Status: Acute Code(s): F32.A - Depression, unspecified Plan The patient is a middle-aged female with a past history of major depressive disorder who historically did very well on ECT and she was receiving ECT maintenance. She recently relapsed in her depressive symptoms and needed to be admitted for treatment due to suicidal ideation. Plan 1. The patient is able to contract for safety so we are going to place her on 15 minute checks. 2. Follow-up with orthopedic team. 3. Referral for ECT ECT restarted, the patient improved after the 1st treatment. 4. Continue with same antidepressants. Reason for continued inpatient stay Substantial Risk for: inability to function, rapid decompensation and med/psych decompensation Time Spent With Patient Time: Total time managing care of this patient today __20__ minutes.
[2024-06-04 20:00] VITALS: BP 137/58; PULSE 83; TEMP 36.4; O2SAT 96
[2024-06-05] VITALS (10 sets, daily range): BP systolic 112–161; BP diastolic 52–81; PULSE 72–96; RESP 10–18; TEMP 35.8–36.6; O2SAT 94–98
[2024-06-05] MEDS: Lactated Ringers 1,000 ML 100 ML IVCONT (09:48)
--- NOTE | 2024-06-05 10:28 | HO.ANESPROP2 ---
HPI - Anesthesia Eval Consult details Narrative: 83 yo female patient for ECT PMFSH Active Problems Active Problems: All Active Problems Status post open reduction with internal fixation (ORIF) of fracture of ankle (Acute) Pre-op evaluation (Acute) Depression (Acute) Major depressive disorder, recurrent severe without psychotic features (Acute) OCD (obsessive compulsive disorder) (Acute) Abnormal finding on EKG (Acute) Past Medical History Medical History OCD (obsessive compulsive disorder) Major depressive disorder, recurrent severe without psychotic features S/P ECT (electroconvulsive therapy) Family History Family History Mother CHF (congestive heart failure) Family history of problems with anesthesia: No Surgical History Surgical History No history of previous surgery History of Problems with Anesthesia: No Social History Social History Household Members: Spouse Housing: Condominium Housing Other:: [facility] community Do you presently have visiting nurse or other home services: No Patient Tobacco Use Status: Never used Tobacco service: No Sexual orientation: Straight/Heterosexual Meds Allergies Allergy/AdvReac Type Severity Reaction Status Date / Time No Known Allergies Allergy Verified 05/26/24 20:50 [No Known Allergies*] Active Medications: Current Medications Acetaminophen (Acetaminophen 325 Mg Tablet) 650 mg PO Q6H PRN PRN Reason: Headache/Pain Mild Scale (1-3) Al Hydroxide/Mg Hydroxide (Magnesium Hydrox/Alum Hydrox 30 Ml Oral.Susp) 30 ml PO Q6H PRN PRN Reason: Heartburn/Nausea Aripiprazole (Aripiprazole 5 Mg Tablet) 5 mg PO DAILY [facility] Last Admin: 06/04/24 09:15 Dose: 5 mg Aspirin (Aspirin Enteric Coated 81 Mg Tablet.Dr) 81 mg PO DAILY [facility] Last Admin: 06/04/24 09:15 Dose: 81 mg Hydroxyzine HCl (Hydroxyzine Hcl 25 Mg Tablet) 25 mg PO Q6H PRN PRN Reason: Anxiety Last Admin: 06/04/24 00:21 Dose: 25 mg Lactated Ringer's (Lr) 1,000 mls @ 100 mls/hr IVCONT .Q10H [facility] Last Admin: 06/05/24 09:48 Dose: 100 mls/hr Magnesium Hydroxide (Milk Of Magnesia 30 Ml Oral.Susp) 30 ml PO DAILY PRN PRN Reason: Constipation Last Admin: 05/31/24 22:20 Dose: 30 ml Nicotine Polacrilex (Nicotine Polacrilex 2 Mg Gum) 2 mg BUCCAL Q2H PRN PRN Reason: Nicotine Cravings Trazodone HCl (Trazodone Hcl 50 Mg Tablet) 50 mg PO BEDTIME MRX1 PRN PRN Reason: Insomnia Last Admin: 06/04/24 00:21 Dose: 50 mg Venlafaxine HCl (Venlafaxine Hcl Er 150 Mg Cap.Er.24h) 150 mg PO DAILY [facility] Last Admin: 06/04/24 09:15 Dose: 150 mg Home Medications ?Medication ?Instructions ?Recorded ?Confirmed ?Last Taken ?Type venlafaxine 150 mg 150 mg PO DAILY 06/04/23 05/27/24 05/26/24 09:00 History capsule,extended release 24 hr aspirin 81 mg tablet,delayed 81 mg PO DAILY 05/27/24 05/27/24 05/26/24 09:00 History release Exam Height,Weight and Vital Signs: Height 5 ft 4 in Weight 59.874 kg Last Vital Signs Temp 96.8 F 06/05/24 09:45 Pulse 78 06/05/24 09:45 Resp 17 06/05/24 09:45 BP 151/81 H 06/05/24 09:45 Pulse Ox 96 06/05/24 09:45 O2 Del Method Room Air 06/05/24 09:45 O2 Flow Rate 2 06/02/24 09:57 Pertinent Lab Results Pertinent Lab Results: Laboratory Tests 05/26/24 05/26/24 05/27/24 23:04 23:30 08:22 WBC 8.6 RBC 4.42 Hgb 13.7 Hct 38.8 MCV 87.8 MCH 31.0 MCHC 35.3 H RDW 12.7 Plt Count 271 D MPV 10.7 Immature Gran % (Auto) 0.2 Neut % (Auto) 55.3 Lymph % (Auto) 34.0 [place] % (Auto) 9.2 Eos % (Auto) 0.8 Baso % (Auto) 0.5 Lymph # (Auto) 2.9 [place] # (Auto) 0.8 Eos # (Auto) 0.1 Baso # (Auto) 0.0 Abs Immat Gran (auto) 0.02 Absolute Neuts (auto) 4.8 Absolute Nucleated RBC 0.000 Nucleated RBC % (auto) 0.0 Sodium 132 L 137 Potassium 4.5 4.5 Chloride 98 102 Carbon Dioxide 24 26 Anion Gap 15 14 BUN 18 H 14 Creatinine 0.97 1.00 Estim Creat Clear Calc 42.4 41.1 Estimated GFR 55 53 Random Glucose 98 100 Fasting Glucose Estimat Average Glucose Hemoglobin A1c % Osmolality 283 Calcium 9.3 9.3 Total Bilirubin 0.4 0.6 AST 27 29 ALT 26 28 Alkaline Phosphatase 98 90 Total Protein 6.1 L 5.9 L Albumin 3.9 3.7 Triglycerides Cholesterol LDL Cholesterol, Calc HDL Cholesterol Vitamin B12 Folate TSH Free T4 Urine Color Yellow Urine Appearance Clear Urine pH 5.5 Ur Specific [place] 1.010 Urine Protein Negative Urine Glucose (UA) Negative Urine Ketones Negative Urine Blood Negative Urine Nitrite Negative Ur Leukocyte Esterase Negative Urine RBC Urine WBC Ur Squamous Epith Cells Urine Bacteria Hyaline Casts Urine Opiates Screen Not Detected Ur Buprenorphine Scrn Not Detected Ur Oxycodone Screen Not Detected Urine Methadone Screen Not Detected Urine Fentanyl Screen Not Detected Ur Barbiturates Screen Not Detected Ur Phencyclidine Scrn Not Detected Ur Amphetamines Screen Not Detected U Benzodiazepines Scrn Not Detected Urine Cocaine Screen Not Detected U Marijuana (THC) Screen Not Detected Ethyl Alcohol < 10 05/28/24 06/03/24 07:13 17:15 WBC RBC Hgb Hct MCV MCH MCHC RDW Plt Count MPV Immature Gran % (Auto) Neut % (Auto) Lymph % (Auto) [place] % (Auto) Eos % (Auto) Baso % (Auto) Lymph # (Auto) [place] # (Auto) Eos # (Auto) Baso # (Auto) Abs Immat Gran (auto) Absolute Neuts (auto) Absolute Nucleated RBC Nucleated RBC % (auto) Sodium 136 Potassium 4.4 Chloride 103 Carbon Dioxide 23 Anion Gap 14 BUN 17 H Creatinine 0.88 Estim Creat Clear Calc 43.3 Estimated GFR > 60 Random Glucose Fasting Glucose 104 H Estimat Average Glucose 111 Hemoglobin A1c % 5.5 Osmolality Calcium 9.4 Total Bilirubin 0.5 AST 36 H ALT 35 H Alkaline Phosphatase 91 Total Protein 6.0 L Albumin 3.9 Triglycerides 44 Cholesterol 212 H LDL Cholesterol, Calc 115 H HDL Cholesterol 89 Vitamin B12 555 Folate 6.3 TSH 3.73 Free T4 1.12 Urine Color Yellow Urine Appearance Clear Urine pH 6.5 Ur Specific [place] 1.025 Urine Protein Negative Urine Glucose (UA) Negative Urine Ketones Negative Urine Blood Negative Urine Nitrite Negative Ur Leukocyte Esterase Negative Urine RBC 3-5 H Urine WBC 0-5 Ur Squamous Epith Cells 0-2 Urine Bacteria None Seen Hyaline Casts 0-2 Urine Opiates Screen Ur Buprenorphine Scrn Ur Oxycodone Screen Urine Methadone Screen Urine Fentanyl Screen Ur Barbiturates Screen Ur Phencyclidine Scrn Ur Amphetamines Screen U Benzodiazepines Scrn Urine Cocaine Screen U Marijuana (THC) Screen Ethyl Alcohol Airway Mallampati Class: II TM Dist: >3cm Neck ROM: Full Loose/Missing/Broken Teeth: No Heart: RRR Lungs: CTAB Assessment and Plan Assessment Anesthesia Assessment: Anesthesia Plan Discussed and Chart Reviewed Final Anesthetic Review Family History of Problems with Anesthesia: No History of Problems with Anesthesia: No NPO: Yes ASA Class: III Final Preanesthetic Review: No Changes in Pt Med Stat, Meds/Allgs Chart Reviewed, Consent Obtained/Reviewed and Anes Risks/Benef Reviewed Patient Risk: Intermediate Procedure Risk: Intermediate Assessment/Block/Sedation in SS: Assess/Block/Sedation- Anesthetic Plan Anesthetic Plan: GA Disposition: Standard PACU
--- NOTE | 2024-06-05 10:45 | MHC.SHP ---
Pre-Procedural Eval Section A - 24 Hr Update-Section A only Date of Service: 06/05/24 The patient is an INPATIENT: Yes Changes since office visit: No Cold of Flu in the past 2 weeks, No New Medical Problems, No Changes in Medication and No Patient answered all questions The patient has been examined within 24 hours of the surgical procedure. The History & Physical has been completed within 30 days and I have reviewed it.: Yes Section B - Complete if H&P > 30 days Chief Complaint: depression Allergies: Allergies Allergy/AdvReac Type Severity Reaction Status Date / Time No Known Allergies Allergy Verified 05/26/24 20:50 [No Known Allergies*] Plan I have reviewed the history and physical and performed a pertinent physical examination on my patient. No changes have occurred unless specified. Time Spent With Patient Time: Total time managing care of this patient today ____ minutes.
--- NOTE | 2024-06-05 10:59 | HO.ECTPROC ---
ECT Procedure Note Diagnosis/Treatment Date of Service: 06/05/24 Diagnosis: Major Depressive Disorder Previous ECT Date: 06/02/24 Treatment: Series Interval Clinical Notes: The patient's mood improved with ECT, no side effects with the previous ECT. ECT done as usual, no complications, woke up well Time: Total time managing care of this patient today _30___ minutes. ECT Settings Device: THYMATRON DGx Electrode Placement: Bifrontal Program/Pulse Width: 0.25 Energy Percent: 35 Seizure Duration By EEG (in seconds): 56 By Motor Observation (in seconds): 45 Medications Administration General Anesthetic: Etomidate (12) Muscle Relaxant: Succinylcholine (60) Ancillary Medications Miscillaneous Medications: Propofol (30) Airway Management Airway Management: Bag Mask Ventilation Treatment Recommendations Pt Tolerated Procedure w/o Issue: Yes
--- NOTE | 2024-06-05 12:21 | PC.NURSE ---
Patient returned from ECT at 1210, vital signs are stable.
[2024-06-05] MEDS: ARIPiprazole 5 MG TABLET PO (12:34)
[2024-06-05] MEDS: Aspirin Enteric Coated 81 MG TABLET.DR PO (12:34)
[2024-06-05] MEDS: Venlafaxine HCl ER 150 MG CAP.ER.24H PO (12:34)
--- NOTE | 2024-06-05 13:00 | HO.PSYCHPN ---
Subjective Subjective Date of Service: 06/05/24 Reason For Visit: depression Subjective Notes: Conditional Voluntary Interim History: The nursing staff reported the patient had been social, attended to groups eating well and slept 7 hours. Today she had ECT and she reports that she is doing very well. On interview the patient denies new symptoms, we will think on discharge planning early next week or at the end of this week. Mental Status Exam Mental Status Exam Patient Appearance: Appropriate Patient Orientation: Person and Situation Level of Consciousness: Awake and Appropriate Patient Behavior: Guarded and Passive Mood Description: Calm Affect Description: Constricted Patient Cognition Impaired: Yes Ability to Follow Directions: Good Speech Pattern: Clear Hallucinations: None Delusions: Not Present Thought Process: Distracted and Slowed Thinking Thought Content: positive for [place] and positive for Circumstantial Judgement: Fair Diagnostics Vital Signs (24Hr): Vital Signs - 24 hr 06/04/24 20:00 06/05/24 09:10 06/05/24 09:45 Temperature 97.6 F 97.7 F 96.8 F Pulse Rate 83 72 78 Respiratory Rate 18 17 Blood Pressure 137/58 L 140/65 H 151/81 H Pulse Oximetry 96 98 96 Oxygen Delivery Method Room Air Room Air Room Air Oxygen Flow Rate 06/05/24 11:03 06/05/24 11:08 06/05/24 11:13 Temperature 97.4 F Pulse Rate 83 73 74 Respiratory Rate 10 L 16 16 Blood Pressure 133/68 125/62 123/73 Pulse Oximetry 97 97 94 Oxygen Delivery Method Nasal Cannula with ETCO2 Nasal Cannula with ETCO2 Nasal Cannula with ETCO2 Oxygen Flow Rate 2 2 2 06/05/24 11:23 06/05/24 11:37 06/05/24 11:52 Temperature 97.2 F Pulse Rate 79 79 79 Respiratory Rate 16 16 16 Blood Pressure 141/78 H 143/74 H 129/79 Pulse Oximetry 94 95 94 Oxygen Delivery Method Nasal Cannula with ETCO2 Room Air Room Air Oxygen Flow Rate 2 06/05/24 12:21 Temperature 97.9 F Pulse Rate 96 Respiratory Rate 18 Blood Pressure 161/74 H Pulse Oximetry 97 Oxygen Delivery Method Room Air Oxygen Flow Rate BMI result Body Mass Index 22.7 Labs 05/26/24 23:30 05/28/24 07:13 Labs: Laboratory Results - last 48 hr 06/03/24 17:15 Urine Color Yellow Urine Appearance Clear Urine pH 6.5 Ur Specific [place] 1.025 Urine Protein Negative Urine Glucose (UA) Negative Urine Ketones Negative Urine Blood Negative Urine Nitrite Negative Ur Leukocyte Esterase Negative Urine RBC 3-5 H Urine WBC 0-5 Ur Squamous Epith Cells 0-2 Urine Bacteria None Seen Hyaline Casts 0-2 Imaging Radiology Impressions: ITS Impressions Ankle X-Ray 05/29/24 10:05 IMPRESSION: 1. Medial and lateral malleolar orthopedic hardware without evidence of complication. 2. Healing medial and lateral malleolar fractures. 3. Circumferential soft tissue swelling and small tibiotalar joint effusion. Electronically signed by: Chris Canela MD 05/29/2024 01:24 PM [facility] [place] Medications Medications Current Medications Acetaminophen (Acetaminophen 325 Mg Tablet) 650 mg PO Q6H PRN PRN Reason: Headache/Pain Mild Scale (1-3) Acetaminophen (Acetaminophen 325 Mg Tablet) 650 mg PO ONCE PRN PRN Reason: Pain, Mild (Pain Scale 1-3) Stop: 06/05/24 16:28 Al Hydroxide/Mg Hydroxide (Magnesium Hydrox/Alum Hydrox 30 Ml Oral.Susp) 30 ml PO Q6H PRN PRN Reason: Heartburn/Nausea Aripiprazole (Aripiprazole 5 Mg Tablet) 5 mg PO DAILY [facility] Last Admin: 06/05/24 12:34 Dose: 5 mg Aspirin (Aspirin Enteric Coated 81 Mg Tablet.Dr) 81 mg PO DAILY [facility] Last Admin: 06/05/24 12:34 Dose: 81 mg Hydroxyzine HCl (Hydroxyzine Hcl 25 Mg Tablet) 25 mg PO Q6H PRN PRN Reason: Anxiety Last Admin: 06/04/24 00:21 Dose: 25 mg Magnesium Hydroxide (Milk Of Magnesia 30 Ml Oral.Susp) 30 ml PO DAILY PRN PRN Reason: Constipation Last Admin: 05/31/24 22:20 Dose: 30 ml Nicotine Polacrilex (Nicotine Polacrilex 2 Mg Gum) 2 mg BUCCAL Q2H PRN PRN Reason: Nicotine Cravings Ondansetron HCl (Ondansetron Hcl 4 Mg/2 Ml Vial) 4 mg IVPUSH ONCE PRN PRN Reason: Nausea and Vomiting Stop: 06/05/24 16:28 Trazodone HCl (Trazodone Hcl 50 Mg Tablet) 50 mg PO BEDTIME MRX1 PRN PRN Reason: Insomnia Last Admin: 06/04/24 00:21 Dose: 50 mg Venlafaxine HCl (Venlafaxine Hcl Er 150 Mg Cap.Er.24h) 150 mg PO DAILY [facility] Last Admin: 06/05/24 12:34 Dose: 150 mg Allergies Allergies Allergy/AdvReac Type Severity Reaction Status Date / Time No Known Allergies Allergy Verified 05/26/24 20:50 [No Known Allergies*] Assessment & Plan Assessment & Plan (1) Status post open reduction with internal fixation (ORIF) of fracture of ankle: Status: Acute Code(s): Z98.890 - Other specified postprocedural states; Z87.81 - Personal history of (healed) traumatic fracture Assessment and Plan: No signs of infection X-rays intact orthopedic hardware with routine healing Incision sites are c/d/i Continue NWB in boot as directed by her surgeon Boot must remain on at all times including sleep F/u out patient with surgeon Dr. Kelly at [facility] No additional orthopedic intervention needed at this time (2) Major depressive disorder, recurrent severe without psychotic features: Status: Acute Code(s): F33.2 - Major depressive disorder, recurrent severe without psychotic features (3) OCD (obsessive compulsive disorder): Qualifiers: Obsessive-compulsive disorder type: unspecified Qualified Code(s): F42.9 - Obsessive-compulsive disorder, unspecified Status: Acute Code(s): F42.9 - Obsessive-compulsive disorder, unspecified (4) Depression: Status: Acute Code(s): F32.A - Depression, unspecified Plan The patient is a middle-aged female with a past history of major depressive disorder who historically did very well on ECT and she was receiving ECT maintenance. She recently relapsed in her depressive symptoms and needed to be admitted for treatment due to suicidal ideation. Plan 1. The patient is able to contract for safety so we are going to place her on 15 minute checks. 2. Follow-up with orthopedic team. 3. Referral for ECT ECT restarted, the patient improved after the 1st treatment. 4. Continue with same antidepressants. Reason for continued inpatient stay Substantial Risk for: inability to function, rapid decompensation and med/psych decompensation Time Spent With Patient Time: Total time managing care of this patient today __20__ minutes.
[2024-06-05] MEDS: Milk of Magnesia 30 ML ORAL.SUSP PO (16:11)
[2024-06-06] MEDS: ARIPiprazole 5 MG TABLET PO (08:09)
[2024-06-06] MEDS: Aspirin Enteric Coated 81 MG TABLET.DR PO (08:09)
[2024-06-06 08:10] VITALS: BP 135/62; PULSE 77; RESP 18; TEMP 36.5; O2SAT 95
[2024-06-06] MEDS: Venlafaxine HCl ER 150 MG CAP.ER.24H PO (08:10)
--- NOTE | 2024-06-06 12:55 | HO.PSYCHPN ---
Subjective Subjective Date of Service: 06/06/24 Reason For Visit: depression Subjective Notes: Conditional Voluntary Interim History: The nursing staff reported the patient had been fully compliant with treatment she slept well. The occupational therapist reported that she participates in groups. She is scheduled for ECT tomorrow. On interview the patient denies new symptoms, we are thinking on discharge next . Mental Status Exam Mental Status Exam Patient Appearance: Well Grooomed and Appropriate Patient Orientation: Person and Situation Level of Consciousness: Awake and Appropriate Patient Behavior: Guarded and Passive Mood Description: Withdrawn Affect Description: Constricted Patient Cognition Impaired: Yes Ability to Follow Directions: Good Speech Pattern: Clear Hallucinations: None Delusions: Not Present Thought Process: Distracted Thought Content: positive for [place] and positive for Poverty of Content Judgement: Fair Diagnostics Vital Signs (24Hr): Vital Signs - 24 hr 06/05/24 21:14 06/06/24 08:10 Temperature 96.4 F L 97.7 F Pulse Rate 84 77 Respiratory Rate 18 Blood Pressure 112/52 L 135/62 Pulse Oximetry 95 95 Oxygen Delivery Method Room Air Room Air BMI result Body Mass Index 22.7 Labs 05/26/24 23:30 05/28/24 07:13 Imaging Radiology Impressions: ITS Impressions Ankle X-Ray 05/29/24 10:05 IMPRESSION: 1. Medial and lateral malleolar orthopedic hardware without evidence of complication. 2. Healing medial and lateral malleolar fractures. 3. Circumferential soft tissue swelling and small tibiotalar joint effusion. Electronically signed by: Chris Canela MD 05/29/2024 01:24 PM [facility] [place] [place] Medications Medications Current Medications Acetaminophen (Acetaminophen 325 Mg Tablet) 650 mg PO Q6H PRN PRN Reason: Headache/Pain Mild Scale (1-3) Al Hydroxide/Mg Hydroxide (Magnesium Hydrox/Alum Hydrox 30 Ml Oral.Susp) 30 ml PO Q6H PRN PRN Reason: Heartburn/Nausea Aripiprazole (Aripiprazole 5 Mg Tablet) 5 mg PO DAILY [facility] Last Admin: 06/06/24 08:09 Dose: 5 mg Aspirin (Aspirin Enteric Coated 81 Mg Tablet.) 81 mg PO DAILY [facility] Last Admin: 06/06/24 08:09 Dose: 81 mg Bisacodyl (Bisacodyl 5 Mg Tablet.) 10 mg PO ONCE ONE Stop: 06/06/24 12:54 Bisacodyl (Bisacodyl 5 Mg Tablet.Dr) 10 mg PO BEDTIME PRN PRN Reason: Constipation Hydroxyzine HCl (Hydroxyzine Hcl 25 Mg Tablet) 25 mg PO Q6H PRN PRN Reason: Anxiety Last Admin: 06/04/24 00:21 Dose: 25 mg Magnesium Hydroxide (Milk Of Magnesia 30 Ml Oral.Susp) 30 ml PO DAILY PRN PRN Reason: Constipation Last Admin: 06/05/24 16:11 Dose: 30 ml Nicotine Polacrilex (Nicotine Polacrilex 2 Mg Gum) 2 mg BUCCAL Q2H PRN PRN Reason: Nicotine Cravings Trazodone HCl (Trazodone Hcl 50 Mg Tablet) 50 mg PO BEDTIME MRX1 PRN PRN Reason: Insomnia Last Admin: 06/04/24 00:21 Dose: 50 mg Venlafaxine HCl (Venlafaxine Hcl Er 150 Mg Cap.Er.24h) 150 mg PO DAILY [facility] Last Admin: 06/06/24 08:10 Dose: 150 mg Allergies Allergies Allergy/AdvReac Type Severity Reaction Status Date / Time No Known Allergies Allergy Verified 05/26/24 20:50 [No Known Allergies*] Assessment & Plan Assessment & Plan (1) Status post open reduction with internal fixation (ORIF) of fracture of ankle: Status: Acute Code(s): Z98.890 - Other specified postprocedural states; Z87.81 - Personal history of (healed) traumatic fracture Assessment and Plan: No signs of infection X-rays intact orthopedic hardware with routine healing Incision sites are c/d/i Continue NWB in boot as directed by her surgeon Boot must remain on at all times including sleep F/u out patient with surgeon Dr. Kelly at [facility] No additional orthopedic intervention needed at this time (2) Major depressive disorder, recurrent severe without psychotic features: Status: Acute Code(s): F33.2 - Major depressive disorder, recurrent severe without psychotic features (3) OCD (obsessive compulsive disorder): Qualifiers: Obsessive-compulsive disorder type: unspecified Qualified Code(s): F42.9 - Obsessive-compulsive disorder, unspecified Status: Acute Code(s): F42.9 - Obsessive-compulsive disorder, unspecified (4) Depression: Status: Acute Code(s): F32.A - Depression, unspecified Plan The patient is a middle-aged female with a past history of major depressive disorder who historically did very well on ECT and she was receiving ECT maintenance. She recently relapsed in her depressive symptoms and needed to be admitted for treatment due to suicidal ideation. Plan 1. The patient is able to contract for safety so we are going to place her on 15 minute checks. 2. Follow-up with orthopedic team. 3. Referral for ECT ECT restarted, the patient improved after the 1st treatment. 4. Continue with same antidepressants. Reason for continued inpatient stay Substantial Risk for: inability to function, rapid decompensation and med/psych decompensation Time Spent With Patient Time: Total time managing care of this patient today __20__ minutes.
[2024-06-06] MEDS: bisacodyL 5 MG TABLET.DR 10 MG PO (13:01)
[2024-06-06 22:34] VITALS: BP 117/61; PULSE 78; RESP 16; TEMP 36.6; O2SAT 95
[2024-06-07] VITALS (9 sets, daily range): BP systolic 120–147; BP diastolic 52–72; PULSE 75–90; RESP 12–19; TEMP 36.1–36.6; O2SAT 95–97
--- NOTE | 2024-06-07 06:44 | HO.ANESPROP2 ---
[facility] Active Problems Active Problems: All Active Problems Status post open reduction with internal fixation (ORIF) of fracture of ankle (Acute) Pre-op evaluation (Acute) Depression (Acute) Major depressive disorder, recurrent severe without psychotic features (Acute) OCD (obsessive compulsive disorder) (Acute) Abnormal finding on EKG (Acute) Past Medical History Medical History OCD (obsessive compulsive disorder) Major depressive disorder, recurrent severe without psychotic features S/P ECT (electroconvulsive therapy) Family History Family History Mother CHF (congestive heart failure) Family history of problems with anesthesia: No Surgical History Surgical History No history of previous surgery History of Problems with Anesthesia: No Social History Social History Household Members: Spouse Housing: Condominium Housing Other:: [facility] community Do you presently have visiting nurse or other home services: No Patient Tobacco Use Status: Never used Tobacco service: No Sexual orientation: Straight/Heterosexual Meds Allergies Allergy/AdvReac Type Severity Reaction Status Date / Time No Known Allergies Allergy Verified 05/26/24 20:50 [No Known Allergies*] Active Medications: Current Medications Acetaminophen (Acetaminophen 325 Mg Tablet) 650 mg PO Q6H PRN PRN Reason: Headache/Pain Mild Scale (1-3) Al Hydroxide/Mg Hydroxide (Magnesium Hydrox/Alum Hydrox 30 Ml Oral.Susp) 30 ml PO Q6H PRN PRN Reason: Heartburn/Nausea Aripiprazole (Aripiprazole 5 Mg Tablet) 5 mg PO DAILY [facility] Last Admin: 06/06/24 08:09 Dose: 5 mg Aspirin (Aspirin Enteric Coated 81 Mg Tablet.Dr) 81 mg PO DAILY [facility] Last Admin: 06/06/24 08:09 Dose: 81 mg Bisacodyl (Bisacodyl 5 Mg Tablet.Dr) 10 mg PO BEDTIME PRN PRN Reason: Constipation Hydroxyzine HCl (Hydroxyzine Hcl 25 Mg Tablet) 25 mg PO Q6H PRN PRN Reason: Anxiety Last Admin: 06/04/24 00:21 Dose: 25 mg Lactated Ringer's (Lr) 1,000 mls @ 50 mls/hr IVCONT .Q20H [facility] Magnesium Hydroxide (Milk Of Magnesia 30 Ml Oral.Susp) 30 ml PO DAILY PRN PRN Reason: Constipation Last Admin: 06/05/24 16:11 Dose: 30 ml Nicotine Polacrilex (Nicotine Polacrilex 2 Mg Gum) 2 mg BUCCAL Q2H PRN PRN Reason: Nicotine Cravings Trazodone HCl (Trazodone Hcl 50 Mg Tablet) 50 mg PO BEDTIME MRX1 PRN PRN Reason: Insomnia Last Admin: 06/04/24 00:21 Dose: 50 mg Venlafaxine HCl (Venlafaxine Hcl Er 150 Mg Cap.Er.24h) 150 mg PO DAILY [facility] Last Admin: 06/06/24 08:10 Dose: 150 mg Home Medications ?Medication ?Instructions ?Recorded ?Confirmed ?Last Taken ?Type venlafaxine 150 mg 150 mg PO DAILY 06/04/23 05/27/24 05/26/24 09:00 History capsule,extended release 24 hr aspirin 81 mg tablet,delayed 81 mg PO DAILY 05/27/24 05/27/24 05/26/24 09:00 History release Exam Height,Weight and Vital Signs: Height 5 ft 4 in Weight 59.874 kg Last Vital Signs Temp 97.6 F 06/07/24 05:46 Pulse 90 06/07/24 05:46 Resp 18 06/07/24 05:46 BP 138/71 06/07/24 05:46 Pulse Ox 95 06/07/24 05:46 O2 Del Method Room Air 06/06/24 22:34 O2 Flow Rate 2 06/05/24 11:23 Pertinent Lab Results Pertinent Lab Results: Laboratory Tests 05/26/24 05/26/24 05/27/24 23:04 23:30 08:22 WBC 8.6 RBC 4.42 Hgb 13.7 Hct 38.8 MCV 87.8 MCH 31.0 MCHC 35.3 H RDW 12.7 Plt Count 271 D MPV 10.7 Immature Gran % (Auto) 0.2 Neut % (Auto) 55.3 Lymph % (Auto) 34.0 Lynn % (Auto) 9.2 Eos % (Auto) 0.8 Baso % (Auto) 0.5 Lymph # (Auto) 2.9 Lynn # (Auto) 0.8 Eos # (Auto) 0.1 Baso # (Auto) 0.0 Abs Immat Gran (auto) 0.02 Absolute Neuts (auto) 4.8 Absolute Nucleated RBC 0.000 Nucleated RBC % (auto) 0.0 Sodium 132 L 137 Potassium 4.5 4.5 Chloride 98 102 Carbon Dioxide 24 26 Anion Gap 15 14 BUN 18 H 14 Creatinine 0.97 1.00 Estim Creat Clear Calc 42.4 41.1 Estimated GFR 55 53 Random Glucose 98 100 Fasting Glucose Estimat Average Glucose Hemoglobin A1c % Osmolality 283 Calcium 9.3 9.3 Total Bilirubin 0.4 0.6 AST 27 29 ALT 26 28 Alkaline Phosphatase 98 90 Total Protein 6.1 L 5.9 L Albumin 3.9 3.7 Triglycerides Cholesterol LDL Cholesterol, Calc HDL Cholesterol Vitamin B12 Folate TSH Free T4 Urine Color Yellow Urine Appearance Clear Urine pH 5.5 Ur Specific [place] 1.010 Urine Protein Negative Urine Glucose (UA) Negative Urine Ketones Negative Urine Blood Negative Urine Nitrite Negative Ur Leukocyte Esterase Negative Urine RBC Urine WBC Ur Squamous Epith Cells Urine Bacteria Hyaline Casts Urine Opiates Screen Not Detected Ur Buprenorphine Scrn Not Detected Ur Oxycodone Screen Not Detected Urine Methadone Screen Not Detected Urine Fentanyl Screen Not Detected Ur Barbiturates Screen Not Detected Ur Phencyclidine Scrn Not Detected Ur Amphetamines Screen Not Detected U Benzodiazepines Scrn Not Detected Urine Cocaine Screen Not Detected U Marijuana (THC) Screen Not Detected Ethyl Alcohol < 10 05/28/24 06/03/24 07:13 17:15 WBC RBC Hgb Hct MCV MCH MCHC RDW Plt Count MPV Immature Gran % (Auto) Neut % (Auto) Lymph % (Auto) [place] % (Auto) Eos % (Auto) Baso % (Auto) Lymph # (Auto) [place] # (Auto) Eos # (Auto) Baso # (Auto) Abs Immat Gran (auto) Absolute Neuts (auto) Absolute Nucleated RBC Nucleated RBC % (auto) Sodium 136 Potassium 4.4 Chloride 103 Carbon Dioxide 23 Anion Gap 14 BUN 17 H Creatinine 0.88 Estim Creat Clear Calc 43.3 Estimated GFR > 60 Random Glucose Fasting Glucose 104 H Estimat Average Glucose 111 Hemoglobin A1c % 5.5 Osmolality Calcium 9.4 Total Bilirubin 0.5 AST 36 H ALT 35 H Alkaline Phosphatase 91 Total Protein 6.0 L Albumin 3.9 Triglycerides 44 Cholesterol 212 H LDL Cholesterol, Calc 115 H HDL Cholesterol 89 Vitamin B12 555 Folate 6.3 TSH 3.73 Free T4 1.12 Urine Color Yellow Urine Appearance Clear Urine pH 6.5 Ur Specific [place] 1.025 Urine Protein Negative Urine Glucose (UA) Negative Urine Ketones Negative Urine Blood Negative Urine Nitrite Negative Ur Leukocyte Esterase Negative Urine RBC 3-5 H Urine WBC 0-5 Ur Squamous Epith Cells 0-2 Urine Bacteria None Seen Hyaline Casts 0-2 Urine Opiates Screen Ur Buprenorphine Scrn Ur Oxycodone Screen Urine Methadone Screen Urine Fentanyl Screen Ur Barbiturates Screen Ur Phencyclidine Scrn Ur Amphetamines Screen U Benzodiazepines Scrn Urine Cocaine Screen U Marijuana (THC) Screen Ethyl Alcohol Airway Mallampati Class: II TM Dist: >3cm Neck ROM: Full Heart: rrr Lungs: cta Assessment and Plan Assessment Anesthesia Assessment: Anesthesia Plan Discussed and Chart Reviewed Final Anesthetic Review Family History of Problems with Anesthesia: No History of Problems with Anesthesia: No NPO: Yes ASA Class: III Final Preanesthetic Review: No Changes in Pt Med Stat, Meds/Allgs Chart Reviewed and Consent Obtained/Reviewed Patient Risk: Intermediate Procedure Risk: Intermediate Anesthetic Plan Anesthetic Plan: GA Disposition: Standard PACU
[2024-06-07] MEDS: Lactated Ringers 1,000 ML 50 ML IVCONT (06:48)
--- NOTE | 2024-06-07 07:38 | MHC.SHP ---
Pre-Procedural Eval Section A - 24 Hr Update-Section A only Date of Service: 06/07/24 Changes since office visit: No Cold of Flu in the past 2 weeks, No New Medical Problems, No Changes in Medication and No Patient answered all questions The patient has been examined within 24 hours of the surgical procedure. The History & Physical has been completed within 30 days and I have reviewed it.: Yes Section B - Complete if H&P > 30 days Chief Complaint: depression Allergies: Allergies Allergy/AdvReac Type Severity Reaction Status Date / Time No Known Allergies Allergy Verified 05/26/24 20:50 [No Known Allergies*] Review of Systems Sugical H&P ROS: Negative: [place] Plan Diagnosis/Plan: Unchanged I have reviewed the history and physical and performed a pertinent physical examination on my patient. No changes have occurred unless specified. Time Spent With Patient Time: Total time managing care of this patient today ____ minutes.
--- NOTE | 2024-06-07 07:40 | HO.ECTPROC ---
ECT Procedure Note Diagnosis/Treatment Date of Service: 06/07/24 Diagnosis: Major Depressive Disorder Previous ECT Date: 06/05/24 Current Treatment Number: 4 Treatment: Series Interval Clinical Notes: pt reports she is good and feeling better; tolerating ECT Time: Total time managing care of this patient today ____ minutes. ECT Settings Device: THYMATRON DGx Electrode Placement: Bifrontal Program/Pulse Width: 0.25 Energy Percent: 35 Seizure Duration By EEG (in seconds): 52 Medications Administration General Anesthetic: Etomidate (12) Muscle Relaxant: Succinylcholine (60) Ancillary Medications Anti-emetics: Zofran - Pre ECT (4) Miscillaneous Medications: Midazolam (2) Airway Management Airway Management: Bag Mask Ventilation Treatment Recommendations Electrode Placement: Bifrontal Program/Pulse Width: 0.25 Energy Percent: 35 Notes: Seizure appeared adequate some concern if Etomidate 12mg was enough; consider increasing to 14mg Midazolam 2mg given INSTEAD of propofol since Versed confers retrograde amnesia Pt Tolerated Procedure w/o Issue: Yes
--- NOTE | 2024-06-07 08:17 | P.PNPSI_ITS ---
Subjective Subjective Date of Service: 06/07/24 Reason For Visit: depression Subjective Notes: Conditional Voluntary Interim History: The nursing staff reported the patient is pleasant cooperative fully compliant with treatment. She was constipated and yesterday she had Dulcolax with good improvement. Today she had ECT, her mood has improved remarkably. Today on rounds we were discussing about discharge planning. Mental Status Exam Mental Status Exam Patient Appearance: Appropriate Patient Orientation: Person and Situation Level of Consciousness: Awake and Appropriate Patient Behavior: Guarded and Passive Mood Description: Withdrawn Affect Description: Constricted Patient Cognition Impaired: Yes Ability to Follow Directions: Good Speech Pattern: Clear Hallucinations: None Delusions: Not Present Thought Process: Distracted and Slowed Thinking Thought Content: positive for [place] and positive for Poverty of Content Judgement: Fair Diagnostics Vital Signs (24Hr): Vital Signs - 24 hr 06/06/24 22:34 06/07/24 05:46 06/07/24 06:45 Temperature 97.8 F 97.6 F 97 F Pulse Rate 78 90 81 Respiratory Rate 16 18 12 Blood Pressure 117/61 138/71 143/65 H Pulse Oximetry 95 95 95 Oxygen Delivery Method Room Air Room Air Oxygen Flow Rate 06/07/24 08:00 06/07/24 08:05 06/07/24 08:10 Temperature 97.8 F Pulse Rate 77 75 75 Respiratory Rate 16 17 17 Blood Pressure 133/64 132/65 132/65 Pulse Oximetry 95 97 97 Oxygen Delivery Method Nasal Cannula with ETCO2 Nasal Cannula with ETCO2 Nasal Cannula with ETCO2 Oxygen Flow Rate 2 2 2 06/07/24 08:15 Temperature Pulse Rate 76 Respiratory Rate 19 Blood Pressure 134/67 Pulse Oximetry 96 Oxygen Delivery Method Nasal Cannula with ETCO2 Oxygen Flow Rate 1 BMI result Body Mass Index 22.7 Labs 05/26/24 23:30 05/28/24 07:13 Imaging Radiology Impressions: ITS Impressions Ankle X-Ray 05/29/24 10:05 IMPRESSION: 1. Medial and lateral malleolar orthopedic hardware without evidence of complication. 2. Healing medial and lateral malleolar fractures. 3. Circumferential soft tissue swelling and small tibiotalar joint effusion. Electronically signed by: Chris Canela MD 05/29/2024 01:24 PM [facility] Medications Medications Current Medications Acetaminophen (Acetaminophen 325 Mg Tablet) 650 mg PO Q6H PRN PRN Reason: Headache/Pain Mild Scale (1-3) Al Hydroxide/Mg Hydroxide (Magnesium Hydrox/Alum Hydrox 30 Ml Oral.Susp) 30 ml PO Q6H PRN PRN Reason: Heartburn/Nausea Aripiprazole (Aripiprazole 5 Mg Tablet) 5 mg PO DAILY [facility] Last Admin: 06/06/24 08:09 Dose: 5 mg Aspirin (Aspirin Enteric Coated 81 Mg Tablet.) 81 mg PO DAILY [facility] Last Admin: 06/06/24 08:09 Dose: 81 mg Bisacodyl (Bisacodyl 5 Mg Tablet.) 10 mg PO BEDTIME PRN PRN Reason: Constipation Hydroxyzine HCl (Hydroxyzine Hcl 25 Mg Tablet) 25 mg PO Q6H PRN PRN Reason: Anxiety Last Admin: 06/04/24 00:21 Dose: 25 mg Lactated Ringer's (Lr) 1,000 mls @ 50 mls/hr IVCONT .Q20H [facility] Last Admin: 06/07/24 06:48 Dose: 50 mls/hr Magnesium Hydroxide (Milk Of Magnesia 30 Ml Oral.Susp) 30 ml PO DAILY PRN PRN Reason: Constipation Last Admin: 06/05/24 16:11 Dose: 30 ml Naloxone HCl (Naloxone Hcl 0.4 Mg/Ml Vial) 0.04 mg IVPUSH Q5M PRN PRN Reason: Excessive sedation or RR < 8 Nicotine Polacrilex (Nicotine Polacrilex 2 Mg Gum) 2 mg BUCCAL Q2H PRN PRN Reason: Nicotine Cravings Trazodone HCl (Trazodone Hcl 50 Mg Tablet) 50 mg PO BEDTIME MRX1 PRN PRN Reason: Insomnia Last Admin: 06/04/24 00:21 Dose: 50 mg Venlafaxine HCl (Venlafaxine Hcl Er 150 Mg Cap.Er.24h) 150 mg PO DAILY [facility] Last Admin: 06/06/24 08:10 Dose: 150 mg Allergies Allergies Allergy/AdvReac Type Severity Reaction Status Date / Time No Known Allergies Allergy Verified 05/26/24 20:50 [No Known Allergies*] Assessment & Plan Assessment & Plan (1) Status post open reduction with internal fixation (ORIF) of fracture of ankle: Status: Acute Code(s): Z98.890 - Other specified postprocedural states; Z87.81 - Personal history of (healed) traumatic fracture Assessment and Plan: No signs of infection X-rays intact orthopedic hardware with routine healing Incision sites are c/d/i Continue NWB in boot as directed by her surgeon Boot must remain on at all times including sleep F/u out patient with surgeon Dr. Kelly at [facility] No additional orthopedic intervention needed at this time (2) Major depressive disorder, recurrent severe without psychotic features: Status: Acute Code(s): F33.2 - Major depressive disorder, recurrent severe without psychotic features (3) OCD (obsessive compulsive disorder): Qualifiers: Obsessive-compulsive disorder type: unspecified Qualified Code(s): F 42.9 - Obsessive-compulsive disorder, unspecified Status: Acute Code(s): F42.9 - Obsessive-compulsive disorder, unspecified (4) Depression: Status: Acute Code(s): F32.A - Depression, unspecified Plan The patient is a middle-aged female with a past history of major depressive disorder who historically did very well on ECT and she was receiving ECT maintenance. She recently relapsed in her depressive symptoms and needed to be admitted for treatment due to suicidal ideation. Plan 1. The patient is able to contract for safety so we are going to place her on 15 minute checks. 2. Follow-up with orthopedic team. 3. Referral for ECT ECT restarted, the patient improved after the 1st treatment. 4. Continue with same antidepressants. Reason for continued inpatient stay Substantial Risk for: inability to function, rapid decompensation and med/psych decompensation Time Spent With Patient Time: Total time managing care of this patient today _20___ minutes.
[2024-06-07] MEDS: Aspirin Enteric Coated 81 MG TABLET.DR PO (09:08)
[2024-06-07] MEDS: ARIPiprazole 5 MG TABLET PO (09:08)
[2024-06-07] MEDS: Venlafaxine HCl ER 150 MG CAP.ER.24H PO (09:08)
[2024-06-08] MEDS: Aspirin Enteric Coated 81 MG TABLET.DR PO (08:17)
[2024-06-08] MEDS: Venlafaxine HCl ER 150 MG CAP.ER.24H PO (08:17)
[2024-06-08] MEDS: ARIPiprazole 5 MG TABLET PO (08:17)
--- NOTE | 2024-06-08 09:52 | PM.EVENT ---
Documented by User: Nella Robles NP 06/08/24 09:57 Event Note Date of Service: 06/08/24 Event Note: This letter is at the request of [facility] where patient has resided in their independent living section. She receives assistance with weekly house keeping and restaurant style meals. There is no clinical indication that Mrs. Zayas requires increase supervision that the one already provided at [facility]. She is able to return there without any safety or other concerns. Time Spent With Patient Time: Total time managing care of this patient today ____ minutes. Documented by User: Kyler Chambers MD 06/08/24 13:38 Event Note Date of Service: 06/08/24
--- NOTE | 2024-06-08 12:14 | P.DS_ITS ---
DS: Providers Provider Date of Service: 06/08/24 Date of admission: 05/27/24 10:54 Date of discharge: 06/08/24 Primary care physician: Griselda Lynne MD Consults: 05/28/24 13:22 Consult to Hospitalist Routine Comment: Consulting Provider: Hospitalist Reason For Exam: ECT clearance 05/29/24 09:05 Consult to Orthopedics Routine Consulting Provider: [facility] Reason for consultation: F/U fx ankle Has provider been notified: No Discharging clinician: Nella Robles DS: Diagnosis Discharge Diagnosis (1) Status post open reduction with internal fixation (ORIF) of fracture of ankle: Status: Acute (2) Major depressive disorder, recurrent severe without psychotic features: Status: Acute (3) OCD (obsessive compulsive disorder): Status: Acute (4) Depression: Status: Acute DS: Medications Discharge Medications Home Medications: Previous Rx's ?Medication ?Instructions ?Recorded aripiprazole 5 mg tablet (Abilify) 5 mg PO DAILY #30 tabs 06/08/24 aspirin 81 mg tablet,delayed 81 mg PO DAILY #30 tabs 06/08/24 release trazodone 50 mg tablet 50 mg PO BEDTIME MRX1 PRN Insomnia 06/08/24 #30 tabs venlafaxine 150 mg 150 mg PO DAILY #30 caps 06/08/24 capsule,extended release 24 hr Mental Status Exam Mental Status Exam Narrative: Appearance: wearing hospital gown, good hygiene, in NAD Behavior: cooperative Psychomotor: no agitation or retardation noted Speech: clear, normal rate/rhythm/volume, spontaneous TP: linear TC:future oriented, looking forward to return home Mood: much better Affect: much brighter, non labile. congruent. SI: none HI: none VH/AH: none Delusions: none Insight/judgment: improving x 2. Memory/cog: alert, oriented x 4. Data Data Completed and Pending Completed studies during hospitalization [Text1]: 06/03/24 17:15 Urine Color Yellow Urine Appearance Clear Urine pH 6.5 Ur Specific [place] 1.025 Urine Protein Negative Urine Glucose (UA) Negative Urine Ketones Negative Urine Blood Negative Urine Nitrite Negative Ur Leukocyte Esterase Negative Urine RBC 3-5 H Urine WBC 0-5 Ur Squamous Epith Cells 0-2 Urine Bacteria None Seen Hyaline Casts 0-2 Imaging Diagnostic Imaging Impressions Ankle X-Ray 05/29/24 10:05 IMPRESSION: 1. Medial and lateral malleolar orthopedic hardware without evidence of complication. 2. Healing medial and lateral malleolar fractures. 3. Circumferential soft tissue swelling and small tibiotalar joint effusion. Electronically signed by: Chris Canela MD 05/29/2024 01:24 PM [facility] DS: Summary Hospital Course Hospital Course: Mrs. Zayas is an 83 year-old woman who has long hx of depression and presented as recommended by her senior compensation consultant psychiatrist, Dr. Kyler Chambers to come to [facility] due to increased depression, suicidal ideation without a plan in the context of recently breaking her ankle, depending on her who has dementia. She had ECT treatment in the past with good effect. Plan is to resume ECT while inpatient. In the ED, utox is negative. UA not suggestive of UTI. Initially cmp showed hyponatremia, but not in repeat cmp. On the unit, pt presents as pleasant, somewhat withdrawn, has come to see her while on the unit, which seems to be helpful. She reports feeling depressed. She also reports suicidal ideation but denies any plan. She adds that she is concern about financial issues. No VH/AH. No delusions. She reports sleeping well. HOSPITAL COURSE Mrs. Zayas was admitted on a CV and placed on 15 minutes checks for safety. Pt presented with severe depression, anhedonia, suicidal ideation. After discussing risks, benefits and alternative treatment options, pt agreed to resume ECT. She completed a total of 5 ECT treatments, bifrontal. Her affect gradually presented as much brighter. She reported less depressed mood, increased appetite. She denied SI/HI. She presented as future oriented. There were no incidences of disruptive behaviors nor need for restraints. She will continue outpatient treatment with Dr. Kyler Chambers who she has been [facility] for more than 10 years. Status at Discharge Cognitive/behavioral status at discharge: Pt presents with much brighter affect. No SI/HI. No VH/AH. Future oriented. Sleeping and eating well. No aggression towards self or others. Functional status at discharge: wheelchair bound Overall status at discharge: patient is progressing back to baseline Time Spent with Patient Time attestation: Total time managing care of this patient today ___35_ minutes. Time spent: Greater than 30 minutes Discharge Plan Discharge Anticipated Discharge Date/Time: 06/08/24 12:08 Patient Disposition: Home, Self-Care Discharge Diagnosis: MDD, recurrent severe OCD Referrals: [facility] [Other] - 06/09/24 ([facility] will resume her PT tomorrow 06/09. They will call you either tonight after 5pm or tomorrow morning to give a specific time for the PT.) Kyler Chambers MD [Physician] - 06/14/24 6:00 am (You will have 4 weeks of maintenance ECT, it will be once a week for now. After that will decide if he needs to continue after that the appointments will be as followed. 06/14 at 6am, 06/21 at 6am, 06/28 at 6am 07/07 at 8am) Colton Mai FNP- [Nurse Practitioner] - 06/12/24 2:30 pm (You will see Colton on 06/12 at 2:30pm. This is just a follow up after hospitalization, it should be in your notes that he needs to fill out a Medical Clearance form for your maintenance ECT.) Discharge Medications: New trazodone 50 mg Tablet 50 mg PO BEDTIME MRX1 PRN (Reason: Insomnia) Qty: 30 0RF venlafaxine 150 mg Capsule,Extended Release 24hr 150 mg PO DAILY Qty: 30 0RF aspirin 81 mg Tablet,Delayed Release (Dr/Ec) 81 mg PO DAILY Qty: 30 0RF aripiprazole [Abilify] 5 mg Tablet 5 mg PO DAILY Qty: 30 0RF Discontinued aripiprazole [Abilify] 5 mg tablet 5 mg PO DAILY Qty: 30 0RF aspirin 81 mg Tablet,Delayed Release (Dr/Ec) 81 mg PO DAILY venlafaxine 150 mg capsule,extended release 24hr 150 mg PO DAILY Discharge Orders: Discharge Order (Routine); Ordered 06/08/24 Ordered By: Nella Robles Diet: Regular diet Activity on Discharge: As tolerated Stand Alone Forms: Patient Portal Discharge page Print Language: Haitian Care Plan Goals: maintain mood No SI/HI Health Concerns: follow up with PCP Plan of Treatment: 1. Take medications as prescribed 2. Go to nearest ED or call 911 in event of emergency Assessment: Pt with much brighter affect. No SI/HI. No psychosis or delusions. Sleeping through the night. Future oriented. sleeping and eating well.
== END 2024-06-08 14:28 | disposition home or self-care (01) | DRG 885 ==
LOC: HO.ED 05-27 09:16 → HO.PADLT16 05-27 11:02 → HO.PGERI 05-27 21:45
PROVIDERS: Psychiatry & Neurology Psychiatry; Admitting Provider Social Worker; Emergency Provider Emergency Medicine; PCP Family Medicine; Referring Provider Student in an Organized Health Care Education/Training Program; Visit Provider Social Worker
PROC: GZB4ZZZ Other Electroconvulsive Therapy (ICD-10-PCS; CPT 90870; principal; 2024-05-31 13:00)
DX: F33.2 Major depressive disorder, recurrent severe without psychotic features (principal); R45.851 Suicidal ideations; F42.9 Obsessive-compulsive disorder, unspecified; Z79.82 Long term (current) use of aspirin; Z79.899 Other long term (current) drug therapy
CPT/HCPCS: 36415; 73610; 80053; 80061; 80307; 81001; 81003; 82607; 82746; 83036; 83930; 84439; 84443; 85025; 90870; 93005; 99285; J0330; J2250; J2405; J2704; J7120; S9485

== ENCOUNTER → 2024-05-27 01:23 | Outpatient (BNV) | payer MEDICARE, BC, SELFPAY | PROVIDERS: Emergency Provider Emergency Medicine; PCP Family Medicine; Visit Provider Internal Medicine Cardiovascular Disease | DX: Z01.818 Encounter for other preprocedural examination (principal) | CPT/HCPCS: 93010 ==

== ENCOUNTER → 2024-05-27 10:54 | Outpatient (BNV) | payer MEDICARE, SELFPAY | PROVIDERS: Admitting Provider Social Worker; Emergency Provider Emergency Medicine; PCP Family Medicine; Visit Provider Student in an Organized Health Care Education/Training Program | DX: Z01.818 Encounter for other preprocedural examination (principal) | CPT/HCPCS: 99429 ==

== ENCOUNTER → 2024-05-27 10:54 | Outpatient (BNV) | payer MEDICARE, SELFPAY | PROVIDERS: Admitting Provider Social Worker; Emergency Provider Emergency Medicine; PCP Family Medicine; Visit Provider Psychiatry & Neurology Psychiatry | DX: F33.2 Major depressive disorder, recurrent severe without psychotic features (principal) | CPT/HCPCS: 90870 ==

== ENCOUNTER → 2024-05-27 10:54 | Outpatient (BNV) | payer MEDICARE, BC, SELFPAY | PROVIDERS: Admitting Provider Social Worker; Emergency Provider Emergency Medicine; PCP Family Medicine; Visit Provider Physician Assistant | DX: S82.892D Other fracture of left lower leg, subsequent encounter for closed fracture with routine healing (principal); F33.2 Major depressive disorder, recurrent severe without psychotic features; F42.9 Obsessive-compulsive disorder, unspecified | CPT/HCPCS: 99222 ==

== ENCOUNTER → 2024-05-27 10:54 | Outpatient (BNV) | payer MEDICARE, BC, SELFPAY | PROVIDERS: Admitting Provider Social Worker; Emergency Provider Emergency Medicine; PCP Family Medicine; Visit Provider Social Worker | DX: F33.2 Major depressive disorder, recurrent severe without psychotic features (principal); F42.9 Obsessive-compulsive disorder, unspecified; Z87.81 Personal history of (healed) traumatic fracture | CPT/HCPCS: 90792; 90870; 99231; 99232; 99239; 99499 ==

== ENCOUNTER 2024-06-14 06:06 | Day surgery (SDC) | payer MEDICARE, SELFPAY ==
[2024-06-14] VITALS (7 sets, daily range): BP systolic 139–154; BP diastolic 59–77; PULSE 75–84; RESP 15–16; TEMP 36.3–36.8; O2SAT 94–100; BMI 24.8
[2024-06-14] MEDS: Lactated Ringers 1,000 ML 100 ML IVCONT (06:53)
--- NOTE | 2024-06-14 06:55 | P.CONAN_ITS ---
FORMERLY [facility] Active Problems Active Problems: All Active Problems Status post open reduction with internal fixation (ORIF) of fracture of ankle (Acute) Pre-op evaluation (Acute) Depression (Acute) Major depressive disorder, recurrent severe without psychotic features (Acute) OCD (obsessive compulsive disorder) (Acute) Abnormal finding on EKG (Acute) Past Medical History Medical History OCD (obsessive compulsive disorder) Major depressive disorder, recurrent severe without psychotic features S/P ECT (electroconvulsive therapy) Family History Family History Mother CHF (congestive heart failure) Family history of problems with anesthesia: No Surgical History Surgical History No history of previous surgery History of Problems with Anesthesia: No Social History Social History Household Members: Spouse Housing: Condominium Housing Other:: Intermediate community Do you presently have visiting nurse or other home services: No Patient Tobacco Use Status: Never used Tobacco Advance Directives: No Advance Directives Information Provided: Yes service: No Sexual orientation: Straight/Heterosexual Meds Allergies Allergy/AdvReac Type Severity Reaction Status Date / Time No Known Allergies Allergy Verified 05/26/24 20:50 [No Known Allergies*] Active Medications: Current Medications Lactated Ringer's (Lr) 1,000 mls @ 100 mls/hr IVCONT .Q10H [facility] Last Admin: 06/14/24 06:53 Dose: 100 mls/hr Exam Height,Weight and Vital Signs: Height 5 ft 3 in Weight 63.503 kg Last Vital Signs Temp 97.4 F 06/14/24 06:34 Pulse 81 06/14/24 06:34 Resp 15 06/14/24 06:34 BP 139/66 06/14/24 06:34 Pulse Ox 98 06/14/24 06:34 O2 Del Method Room Air 06/14/24 06:34 Airway Mallampati Class: II TM Dist: >3cm Neck ROM: Full Heart: rrr Lungs: cta Assessment and Plan Assessment Anesthesia Assessment: Anesthesia Plan Discussed and Chart Reviewed Final Anesthetic Review Family History of Problems with Anesthesia: No History of Problems with Anesthesia: No NPO: Yes ASA Class: III Final Preanesthetic Review: No Changes in Pt Med Stat, Meds/Allgs Chart Reviewed and Consent Obtained/Reviewed Patient Risk: Intermediate Procedure Risk: Intermediate Anesthetic Plan Anesthetic Plan: GA Disposition: Standard PACU
--- NOTE | 2024-06-14 07:05 | MHC.SHP ---
Pre-Procedural Eval Section A - 24 Hr Update-Section A only Date of Service: 06/14/24 The patient is an INPATIENT: No Section B - Complete if H&P > 30 days Chief Complaint: depression Details of Present Illness: pt home doing well Relevant Social History: None Present Medications: see Short Stay Collaborative assessment Medical History: Significant History History of Previous Operations: Relevant previous surgery/procedure and date(s) (ect recent ankle fx) Allergies: Allergies Allergy/AdvReac Type Severity Reaction Status Date / Time No Known Allergies Allergy Verified 05/26/24 20:50 [No Known Allergies*] Review of Systems Sugical H&P ROS: Negative: Cardiovascular, Respiratory and Neurological and Yes, Specify: Psychiatric (improved no si) Exam Surgical H&P Exam: Normal: Heart, Normal: Lungs and Normal: Abdomen Plan Diagnosis/Plan: Unchanged I have reviewed the history and physical and performed a pertinent physical examination on my patient. No changes have occurred unless specified. Time Spent With Patient Time: Total time managing care of this patient today ____ minutes.
--- NOTE | 2024-06-14 07:07 | HO.ECTPROC ---
ECT Procedure Note Diagnosis/Treatment Date of Service: 06/14/24 Diagnosis: Major Depressive Disorder Current Treatment Number: 5 Treatment: Series Interval Clinical Notes: pt with improved mood some discouragement re ongoing ankle healing and inability to walk Time: Total time managing care of this patient today ____ minutes. ECT Settings Device: THYMATRON DGx Electrode Placement: Bifrontal Program/Pulse Width: 0.25 Energy Percent: 40 Seizure Duration By EEG (in seconds): 55 Medications Administration General Anesthetic: Etomidate (14) Muscle Relaxant: Succinylcholine (80) Airway Management Airway Management: Bag Mask Ventilation Treatment Recommendations No Changes Recommended: No change Notes: monitor response to ect
== END 2024-06-14 08:46 | disposition home or self-care (01) ==
PROVIDERS: PCP Family Medicine; Visit Provider Psychiatry & Neurology Psychiatry
PROC: (CPT 90870; principal; 2024-06-14 07:30)
DX: F33.2 Major depressive disorder, recurrent severe without psychotic features (principal); F42.9 Obsessive-compulsive disorder, unspecified; Z87.81 Personal history of (healed) traumatic fracture; Z79.82 Long term (current) use of aspirin; Z79.899 Other long term (current) drug therapy; Z98.890 Other specified postprocedural states
CPT/HCPCS: 90870; J0330; J2250; J2405

== ENCOUNTER → 2024-06-14 06:06 | Outpatient (BNV) | payer MEDICARE, SELFPAY | PROVIDERS: PCP Family Medicine; Visit Provider Psychiatry & Neurology Psychiatry | DX: F33.3 Major depressive disorder, recurrent, severe with psychotic symptoms (principal) | CPT/HCPCS: 90870 ==

== ENCOUNTER 2024-06-21 12:54 | Day surgery (SDC) | payer MEDICARE, BC, SELFPAY ==
[2024-06-21] VITALS (9 sets, daily range): BP systolic 143–171; BP diastolic 64–85; PULSE 71–87; RESP 16–18; TEMP 36.6–36.9; O2SAT 95–99; BMI 23.6
--- NOTE | 2024-06-21 13:56 | HO.ANESPROP2 ---
FORMERLY [facility] Active Problems Active Problems: All Active Problems Major depressive disorder, recurrent severe without psychotic features (Acute) OCD (obsessive compulsive disorder) (Acute) Abnormal finding on EKG (Acute) Past Medical History Medical History OCD (obsessive compulsive disorder) Major depressive disorder, recurrent severe without psychotic features S/P ECT (electroconvulsive therapy) Family History Family History Mother CHF (congestive heart failure) Family history of problems with anesthesia: No Surgical History Surgical History No history of previous surgery History of Problems with Anesthesia: No Social History Social History Household Members: Spouse Housing: Condominium Housing Other:: [facility] community Do you presently have visiting nurse or other home services: No Patient Tobacco Use Status: Never used Tobacco Advance Directives: No Advance Directives Information Provided: Yes service: No Sexual orientation: Straight/Heterosexual Meds Allergies Allergy/AdvReac Type Severity Reaction Status Date / Time No Known Allergies Allergy Verified 05/26/24 20:50 [No Known Allergies*] Exam Airway Mallampati Class: II TM Dist: >3cm Neck ROM: Full Loose/Missing/Broken Teeth: No Heart: RRR Lungs: CTA Assessment and Plan Assessment Anesthesia Assessment: Anesthesia Plan Discussed and Chart Reviewed Final Anesthetic Review Family History of Problems with Anesthesia: No History of Problems with Anesthesia: No NPO: Yes ASA Class: II Final Preanesthetic Review: Meds/Allgs Chart Reviewed, Consent Obtained/Reviewed and Anes Risks/Benef Reviewed Patient Risk: Low Procedure Risk: Intermediate Anesthetic Plan Anesthetic Plan: GA Disposition: Standard PACU
--- NOTE | 2024-06-21 14:20 | MHC.SHP ---
Pre-Procedural Eval Section A - 24 Hr Update-Section A only Date of Service: 06/21/24 The patient is an INPATIENT: No Changes since office visit: No Cold of Flu in the past 2 weeks, No New Medical Problems, No Changes in Medication and No Patient answered all questions The patient has been examined within 24 hours of the surgical procedure. The History & Physical has been completed within 30 days and I have reviewed it.: Yes Section B - Complete if H&P > 30 days Chief Complaint: depression Details of Present Illness: Reports stable mood but confused and times, we will discuss with Dr. Chambers Relevant Family History (Specify if Yes): Yes Relevant Social History: None Present Medications: see Short Stay Collaborative assessment Medical History: No relevant PMH Allergies: Allergies Allergy/AdvReac Type Severity Reaction Status Date / Time No Known Allergies Allergy Verified 05/26/24 20:50 [No Known Allergies*] Review of Systems Sugical H&P ROS: Yes, Specify: Constitution, Cardiovascular, Respiratory, Neurological, Psychiatric, Hem-Onc, Allergic/Immunologic, Gastrointestinal, Genitourinary, Musculoskeletal, Integumentary, Endocrine and Eyes/Ears/Nose/Throat Exam Surgical H&P Exam: Normal: HEENT, Normal: Heart, Normal: Lungs, Normal: Extremities, Normal: Abdomen, Normal: Skin and Normal: Neurological Plan Diagnosis/Plan: Unchanged I have reviewed the history and physical and performed a pertinent physical examination on my patient. No changes have occurred unless specified. Time Spent With Patient Time: Total time managing care of this patient today _20___ minutes.
--- NOTE | 2024-06-21 14:36 | HO.ECTPROC ---
ECT Procedure Note Diagnosis/Treatment Date of Service: 06/21/24 Diagnosis: Major Depressive Disorder Previous ECT Date: 06/14/24 Treatment: Maintenance Interval Clinical Notes: The patient reported stable mood. She came with her daughter who reported poor short term memory, confusion at times after the last admission. She denies side effects with the previous ECT. Time: Total time managing care of this patient today _30___ minutes. ECT Settings Device: THYMATRON DGx Electrode Placement: Bifrontal Program/Pulse Width: 0.25 Energy Percent: 35 Seizure Duration By EEG (in seconds): 51 By Motor Observation (in seconds): 0 Medications Administration General Anesthetic: Etomidate (14) Muscle Relaxant: Succinylcholine (80) Airway Management Airway Management: Bag Mask Ventilation Treatment Recommendations No Changes Recommended: No change Pt Tolerated Procedure w/o Issue: Yes
[2024-06-21 15:09] LABS: MANUAL DIFF FLAG NO
[2024-06-21 15:12] LABS: Basophils Percent Auto 0.6 % (0-2); Eosinophils Absolute Auto 0.1 X10*3/uL (0.0-0.4); Eosinophils Percent Auto 1.1 % (0-4); Hematocrit 41.6 % (37.0-47.0); Hemoglobin 13.8 g/dl (12.0-16.0); Imm Gran Abs Auto 0.03 X10*3/uL (0.00-0.03); Imm Gran Pct Auto 0.5 % (0.0-0.4); Lymphocytes Percent Auto 29.4 % (20-40); Mean Corpuscular HGB Conc 33.2 g/dl (31.0-35.0); Mean Corpuscular Hemoglobin 30.9 pg (27.0-33.0); Mean Corpuscular Volume 93.3 fL (80.0-98.0); Mean Platelet Volume 9.8 fL (9.4-12.3); Monocytes Absolute Auto 0.6 X10*3/uL (0.1-1.2); Monocytes Percent Auto 8.3 % (2-11); Neutrophils Percent Auto 60.1 % (45-73); Platelet Count 268 X10*3/uL (160-400); Red Blood Count 4.46 X10*6/uL (4.20-5.50); White Blood Count 6.6 X10*3/uL (4.8-10.8)
[2024-06-21 15:19] LABS: Ammonia 24 umol/L (13-55)
[2024-06-21 15:30] LABS: Alanine Aminotransferase 15 U/L (0-31); Albumin Level 3.9 g/dL (3.5-5.0); Anion Gap 14 (12-20); Aspartate Amino Transferase 28 U/L (5-31); Bilirubin Total 0.7 mg/dL (0.0-1.0); Blood Urea Nitrogen 16 mg/dL (9-16); Calcium 9.4 mg/dL (8.4-10.2); Carbon Dioxide 27 mmol/L (22-29); Chloride 105 mmol/L (96-108); Creatinine Clr Calc Pharmacy 35.9; Estimated Glomerular Filt Rate 53; Glucose Fasting 95 mg/dL (60-99); Potassium 4.8 mmol/L (3.3-5.1); Sodium 141 mmol/L (135-145); Total Protein 6.4 g/dL (6.5-8.0)
[2024-06-21 16:39] LABS: Alkaline Phosphatase 88 U/L (39-117)
[2024-06-21 16:41] LABS: Appearance Urine Clear; Color Urine Yellow; Glucose Urine UA Negative (Negative); Leukocyte Esterase Urine Negative (Negative); Nitrite Urine Negative (Negative); PH 5.5 (5.0-9.0); Urine Blood Negative (Negative); Urine Ketones Trace mg/dL (Negative); Urine Protein Negative (Neg-Trace)
[2024-06-21 16:54] LABS: Bacteria Urine None Seen (None Seen); Hyaline Casts Urine 0-2 /LPF (0-2); RBC Urine 0-2 /HPF (0-2); Squamous Epithelial Cell Urine 0-2 /HPF (0-2); WBC Urine 0-5 /HPF (0-5)
== END 2024-06-21 16:40 | disposition home or self-care (01) ==
PROVIDERS: PCP Internal Medicine; Visit Provider Psychiatry & Neurology Psychiatry
PROC: (CPT 90870; principal; 2024-06-21 15:00)
DX: F33.2 Major depressive disorder, recurrent severe without psychotic features (principal); R41.3 Other amnesia; F42.9 Obsessive-compulsive disorder, unspecified; Z79.82 Long term (current) use of aspirin; Z79.899 Other long term (current) drug therapy; Z98.890 Other specified postprocedural states
CPT/HCPCS: 36415; 80053; 81001; 82140; 85025; 90870; J0330; J2405

== ENCOUNTER → 2024-06-21 12:54 | Outpatient (BNV) | payer MEDICARE, SELFPAY | PROVIDERS: PCP Internal Medicine; Visit Provider Psychiatry & Neurology Psychiatry | DX: F33.3 Major depressive disorder, recurrent, severe with psychotic symptoms (principal) | CPT/HCPCS: 90870 ==

== ENCOUNTER 2024-06-28 06:03 | Day surgery (SDC) | payer MEDICARE, SELFPAY ==
[2024-06-28 06:37] VITALS: BP 124/53; PULSE 69; RESP 16; TEMP 36.2; O2SAT 96; BMI 24.8
[2024-06-28] MEDS: Lactated Ringers 1,000 ML 100 ML IVCONT (07:06)
--- NOTE | 2024-06-28 07:15 | MHC.SHP ---
Pre-Procedural Eval Section A - 24 Hr Update-Section A only Date of Service: 06/28/24 The patient is an INPATIENT: No Changes since office visit: No Cold of Flu in the past 2 weeks, No New Medical Problems, No Changes in Medication and No Patient answered all questions Section B - Complete if H&P > 30 days Chief Complaint: depression Details of Present Illness: mood improved some st memory problems plan to start namnenda Relevant Social History: None Present Medications: see Short Stay Collaborative assessment Allergies: Allergies Allergy/AdvReac Type Severity Reaction Status Date / Time No Known Allergies Allergy Verified 05/26/24 20:50 [No Known Allergies*] Review of Systems Sugical H&P ROS: Negative: Cardiovascular and Respiratory and Yes, Specify: Neurological (some periods disorientation) and Psychiatric (improved ) Exam Surgical H&P Exam: Normal: Heart, Normal: Lungs and Normal: Neurological Exam Comment: alert oriented knows place reason 124/53 Plan Diagnosis/Plan: Unchanged I have reviewed the history and physical and performed a pertinent physical examination on my patient. No changes have occurred unless specified. Time Spent With Patient Time: Total time managing care of this patient today ____ minutes.
--- NOTE | 2024-06-28 07:17 | HO.ECTPROC ---
ECT Procedure Note Diagnosis/Treatment Date of Service: 06/28/24 Diagnosis: Major Depressive Disorder Previous ECT Date: 06/14/24 Treatment: Maintenance Interval Clinical Notes: The patient reported stable mood. Some cognitive changes . Case had been reviewed with pcp may be started on memantine. change to RUL sec to cognitive effects . alert and oriented Time: Total time managing care of this patient today ____ minutes. ECT Settings Device: THYMATRON DGx Electrode Placement: Right Unilateral Program/Pulse Width: 0.25 Energy Percent: 20 Seizure Duration By EEG (in seconds): 67 By Motor Observation (in seconds): 0 Medications Administration General Anesthetic: Etomidate (14) Muscle Relaxant: Succinylcholine (80) Airway Management Airway Management: Bag Mask Ventilation Treatment Recommendations No Changes Recommended: No change Notes: monitor response to change to rul Pt Tolerated Procedure w/o Issue: Yes
[2024-06-28 07:39] VITALS: BP 126/62; PULSE 75; RESP 16; TEMP 36.9; O2SAT 96
[2024-06-28 07:44] VITALS: BP 133/72; PULSE 84; RESP 14; O2SAT 94
[2024-06-28 07:49] VITALS: BP 122/72; PULSE 85; RESP 15; O2SAT 95
[2024-06-28 07:54] VITALS: BP 135/68; PULSE 86; RESP 15; O2SAT 95
[2024-06-28 08:09] VITALS: BP 131/57; PULSE 82; RESP 18; TEMP 36.9; O2SAT 94
--- NOTE | 2024-06-28 10:44 | P.CONAN_ITS ---
[facility] Active Problems Active Problems: All Active Problems Major depressive disorder, recurrent severe without psychotic features (Acute) OCD (obsessive compulsive disorder) (Acute) Abnormal finding on EKG (Acute) Past Medical History Medical History OCD (obsessive compulsive disorder) Major depressive disorder, recurrent severe without psychotic features S/P ECT (electroconvulsive therapy) Functional capacity: independent ambulation Patient : No Family History Family History Mother CHF (congestive heart failure) Family history of problems with anesthesia: No Surgical History Surgical History No history of previous surgery History of Problems with Anesthesia: No Social History Social History Household Members: Spouse Housing: Condominium Housing Other:: Alf community Do you presently have visiting nurse or other home services: No Patient Tobacco Use Status: Never used Tobacco Advance Directives: No Advance Directives Information Provided: Yes service: No Sexual orientation: Straight/Heterosexual Meds Allergies Allergy/AdvReac Type Severity Reaction Status Date / Time No Known Allergies Allergy Verified 05/26/24 20:50 [No Known Allergies*] Exam Height,Weight and Vital Signs: Height 5 ft 3 in Weight 63.503 kg Last Vital Signs Temp 98.4 F 06/28/24 08:09 Pulse 82 06/28/24 08:09 Resp 18 06/28/24 08:09 BP 131/57 L 06/28/24 08:09 Pulse Ox 94 06/28/24 08:09 O2 Del Method Room Air 06/28/24 08:09 O2 Flow Rate 2 06/28/24 07:54 Airway Mallampati Class: II TM Dist: >3cm Neck ROM: Full Heart: RRR Lungs: CTA Assessment and Plan Assessment Anesthesia Assessment: Anesthesia Plan Discussed and Chart Reviewed Final Anesthetic Review Family History of Problems with Anesthesia: No History of Problems with Anesthesia: No NPO: Yes ASA Class: III Final Preanesthetic Review: Meds/Allgs Chart Reviewed, Consent Obtained/Reviewed and Anes Risks/Benef Reviewed Patient Risk: Low Procedure Risk: Low Anesthetic Plan Anesthetic Plan: GA Disposition: Standard PACU
== END 2024-06-28 09:13 | disposition home or self-care (01) ==
PROVIDERS: PCP Family Medicine; Visit Provider Psychiatry & Neurology Psychiatry
PROC: (CPT 90870; principal; 2024-06-28 07:00)
DX: F33.2 Major depressive disorder, recurrent severe without psychotic features (principal); R41.9 Unspecified symptoms and signs involving cognitive functions and awareness; F42.9 Obsessive-compulsive disorder, unspecified
CPT/HCPCS: 90870; J0330; J2405

== ENCOUNTER → 2024-06-28 06:03 | Outpatient (BNV) | payer MEDICARE, SELFPAY | PROVIDERS: PCP Family Medicine; Visit Provider Psychiatry & Neurology Psychiatry | DX: F33.2 Major depressive disorder, recurrent severe without psychotic features (principal) | CPT/HCPCS: 90870 ==

== ENCOUNTER 2024-07-07 07:50 | Day surgery (SDC) | payer MEDICARE, SELFPAY ==
[2024-07-07] VITALS (8 sets, daily range): BP systolic 139–156; BP diastolic 57–82; PULSE 65–70; RESP 12–16; TEMP 36.3–36.8; O2SAT 93–99; BMI 23.9
[2024-07-07] MEDS: Lactated Ringers 1,000 ML 100 ML IVCONT (08:38)
--- NOTE | 2024-07-07 08:49 | HO.ANESPROP2 ---
HPI - Anesthesia Eval Consult details Narrative: 84 yo female patient for ECT PMFSH Active Problems Active Problems: All Active Problems Major depressive disorder, recurrent severe without psychotic features (Acute) OCD (obsessive compulsive disorder) (Acute) Abnormal finding on EKG (Acute) Past Medical History Medical History OCD (obsessive compulsive disorder) Major depressive disorder, recurrent severe without psychotic features S/P ECT (electroconvulsive therapy) Family History Family History Mother CHF (congestive heart failure) Family history of problems with anesthesia: No Surgical History Surgical History No history of previous surgery History of Problems with Anesthesia: No Social History Social History Household Members: Spouse Housing: Condominium Housing Other:: Nursing Home community Do you presently have visiting nurse or other home services: No Patient Tobacco Use Status: Never used Tobacco Advance Directives: No Advance Directives Information Provided: Yes service: No Sexual orientation: Straight/Heterosexual Meds Allergies Allergy/AdvReac Type Severity Reaction Status Date / Time No Known Allergies Allergy Verified 05/26/24 20:50 [No Known Allergies*] Active Medications: Current Medications Lactated Ringer's (Lr) 1,000 mls @ 100 mls/hr IVCONT .Q10H DENISSE Last Admin: 07/07/24 08:38 Dose: 100 mls/hr Exam Height,Weight and Vital Signs: Height 5 ft 3 in Weight 61.235 kg Last Vital Signs Temp 97.4 F 07/07/24 08:38 Pulse 66 07/07/24 08:38 Resp 16 07/07/24 08:38 BP 144/57 H 07/07/24 08:38 Pulse Ox 95 07/07/24 08:38 O2 Del Method Room Air 07/07/24 08:38 Airway Mallampati Class: II TM Dist: >3cm Neck ROM: Full Loose/Missing/Broken Teeth: No Heart: RRR Lungs: CTAB Assessment and Plan Assessment Anesthesia Assessment: Anesthesia Plan Discussed and Chart Reviewed Final Anesthetic Review Family History of Problems with Anesthesia: No History of Problems with Anesthesia: No NPO: Yes ASA Class: III Final Preanesthetic Review: No Changes in Pt Med Stat, Meds/Allgs Chart Reviewed, Consent Obtained/Reviewed and Anes Risks/Benef Reviewed Patient Risk: Intermediate Procedure Risk: Intermediate Assessment/Block/Sedation in SS: Assess/Block/Sedation-SS Anesthetic Plan Anesthetic Plan: GA Disposition: Standard PACU
--- NOTE | 2024-07-07 09:45 | MHC.SHP ---
Pre-Procedural Eval Section A - 24 Hr Update-Section A only Date of Service: 07/07/24 Section B - Complete if H&P > 30 days Chief Complaint: depression Allergies: Allergies Allergy/AdvReac Type Severity Reaction Status Date / Time No Known Allergies Allergy Verified 05/26/24 20:50 [No Known Allergies*] Plan I have reviewed the history and physical and performed a pertinent physical examination on my patient. No changes have occurred unless specified. Time Spent With Patient Time: Total time managing care of this patient today ____ minutes.
--- NOTE | 2024-07-07 23:09 | HO.ECTPROC ---
ECT Procedure Note Diagnosis/Treatment Date of Service: 07/07/24 Diagnosis: Major Depressive Disorder Previous ECT Date: 06/28/24 Treatment: Maintenance Interval Clinical Notes: Some difficulty with complex fx tasks memory she thinks has been stabilizing Time: Total time managing care of this patient today ____ minutes. ECT Settings Device: THYMATRON DGx Electrode Placement: Right Unilateral Program/Pulse Width: 0.25 Energy Percent: 15 Seizure Duration By EEG (in seconds): 44 Medications Administration General Anesthetic: Etomidate (14) Muscle Relaxant: Succinylcholine (80) Airway Management Airway Management: Bag Mask Ventilation Treatment Recommendations No Changes Recommended: No change Notes: monitor response to change to rul ongoing /pt alert o x 3 mood she states ok some anxiety Pt Tolerated Procedure w/o Issue: Yes
== END 2024-07-07 12:05 | disposition home or self-care (01) ==
PROVIDERS: PCP Family Medicine; Visit Provider Psychiatry & Neurology Psychiatry
PROC: (CPT 90870; principal; 2024-07-07 09:30)
DX: F33.2 Major depressive disorder, recurrent severe without psychotic features (principal); R41.9 Unspecified symptoms and signs involving cognitive functions and awareness; F41.9 Anxiety disorder, unspecified; F42.9 Obsessive-compulsive disorder, unspecified
CPT/HCPCS: 90870; J0330; J2405; J2704

== ENCOUNTER → 2024-07-07 07:50 | Outpatient (BNV) | payer MEDICARE, SELFPAY | PROVIDERS: PCP Family Medicine; Visit Provider Psychiatry & Neurology Psychiatry | DX: F33.3 Major depressive disorder, recurrent, severe with psychotic symptoms (principal) | CPT/HCPCS: 90870 ==

== ENCOUNTER 2024-08-04 08:04 | Day surgery (SDC) | payer MEDICARE, SELFPAY ==
[2024-08-04] VITALS (7 sets, daily range): BP systolic 130–153; BP diastolic 53–80; PULSE 68–81; RESP 12–16; TEMP 36.4–36.7; O2SAT 90–95; BMI 23.9
--- NOTE | 2024-08-04 09:11 | HO.ANESPROP2 ---
[facility] Active Problems Active Problems: All Active Problems Major depressive disorder, recurrent severe without psychotic features (Acute) OCD (obsessive compulsive disorder) (Acute) Abnormal finding on EKG (Acute) Past Medical History Medical History OCD (obsessive compulsive disorder) Major depressive disorder, recurrent severe without psychotic features S/P ECT (electroconvulsive therapy) Functional capacity: independent ambulation Patient : No Family History Family History Mother CHF (congestive heart failure) Family history of problems with anesthesia: No Surgical History Surgical History No history of previous surgery History of Problems with Anesthesia: No Social History Social History Household Members: Spouse Housing: Condominium Housing Other:: Long Term community Do you presently have visiting nurse or other home services: No Patient Tobacco Use Status: Never used Tobacco Are you DNR?: No Advance Directives: No Advance Directives Information Provided: Yes service: No Sexual orientation: Straight/Heterosexual Meds Allergies Allergy/AdvReac Type Severity Reaction Status Date / Time No Known Allergies Allergy Verified 05/26/24 20:50 [No Known Allergies*] Exam Height,Weight and Vital Signs: Height 5 ft 3 in Weight 61.235 kg Last Vital Signs Temp 97.6 F 08/04/24 08:33 Pulse 68 08/04/24 08:33 Resp 16 08/04/24 08:33 BP 130/53 L 08/04/24 08:33 Pulse Ox 95 08/04/24 08:33 O2 Del Method Room Air 08/04/24 08:33 Airway Mallampati Class: II TM Dist: >3cm Neck ROM: Full Heart: RRR Lungs: CTA Assessment and Plan Assessment Anesthesia Assessment: Anesthesia Plan Discussed and Chart Reviewed Final Anesthetic Review Family History of Problems with Anesthesia: No History of Problems with Anesthesia: No NPO: Yes ASA Class: III Final Preanesthetic Review: Meds/Allgs Chart Reviewed, Consent Obtained/Reviewed and Anes Risks/Benef Reviewed Patient Risk: Low Procedure Risk: Low Anesthetic Plan Anesthetic Plan: GA Disposition: Standard PACU
[2024-08-04] MEDS: Lactated Ringers 1,000 ML 100 ML IVCONT (09:21)
--- NOTE | 2024-08-04 09:23 | MHC.SHP ---
Pre-Procedural Eval Section A - 24 Hr Update-Section A only Date of Service: 08/04/24 The patient is an INPATIENT: No Changes since office visit: Yes Cold of Flu in the past 2 weeks, Yes New Medical Problems, Yes Changes in Medication and Yes Patient answered all questions The patient has been examined within 24 hours of the surgical procedure. The History & Physical has been completed within 30 days and I have reviewed it.: Yes Section B - Complete if H&P > 30 days Chief Complaint: Major depressive disorder, recurrent, severe with Details of Present Illness: Stable, recenlty started on Namenda Relevant Family History (Specify if Yes): No Relevant Social History: None Present Medications: see Short Stay Collaborative assessment Medical History: No relevant PMH History of Previous Operations: No relevant previous surgery Allergies: Allergies Allergy/AdvReac Type Severity Reaction Status Date / Time No Known Allergies Allergy Verified 05/26/24 20:50 [No Known Allergies*] Review of Systems Sugical H&P ROS: Negative: Constitution, Cardiovascular, Respiratory, Neurological, Psychiatric, Hem-Onc, Allergic/Immunologic, Gastrointestinal, Genitourinary, Musculoskeletal, Integumentary, Endocrine and Eyes/Ears/Nose/Throat Exam Surgical H&P Exam: Normal: HEENT, Normal: Heart, Normal: Lungs, Normal: Extremities, Normal: Abdomen, Normal: Skin and Normal: Neurological Plan Diagnosis/Plan: Unchanged I have reviewed the history and physical and performed a pertinent physical examination on my patient. No changes have occurred unless specified. Time Spent With Patient Time: Total time managing care of this patient today __15__ minutes.
--- NOTE | 2024-08-04 09:49 | HO.ECTPROC ---
ECT Procedure Note Diagnosis/Treatment Date of Service: 08/04/24 Diagnosis: Major Depressive Disorder Previous ECT Date: 07/07/24 Treatment: Maintenance Interval Clinical Notes: The patient reported stable mood, recently started on Namenda. No side effects with the previous ECT. ECT done at 0.25 15%, no complications, woke up well. Time: Total time managing care of this patient today __30__ minutes. ECT Settings Device: THYMATRON DGx Electrode Placement: Right Unilateral Program/Pulse Width: 0.25 Energy Percent: 15 Seizure Duration By EEG (in seconds): 63 By Motor Observation (in seconds): 0 Medications Administration General Anesthetic: Etomidate (14) Muscle Relaxant: Succinylcholine (80) Airway Management Airway Management: Bag Mask Ventilation Treatment Recommendations No Changes Recommended: No change Pt Tolerated Procedure w/o Issue: Yes
== END 2024-08-04 11:17 | disposition home or self-care (01) ==
PROVIDERS: PCP Family Medicine; Visit Provider Psychiatry & Neurology Psychiatry
PROC: (CPT 90870; principal; 2024-08-04 09:30)
DX: F33.2 Major depressive disorder, recurrent severe without psychotic features (principal); F42.9 Obsessive-compulsive disorder, unspecified; R94.31 Abnormal electrocardiogram [ECG] [EKG]
CPT/HCPCS: 90870; J0330; J2405

== ENCOUNTER → 2024-08-04 08:04 | Outpatient (BNV) | payer MEDICARE, SELFPAY | PROVIDERS: PCP Family Medicine; Visit Provider Psychiatry & Neurology Psychiatry | DX: F33.3 Major depressive disorder, recurrent, severe with psychotic symptoms (principal) | CPT/HCPCS: 90870 ==

== ENCOUNTER 2024-09-08 08:05 | Day surgery (SDC) | payer MEDICARE, SELFPAY ==
[2024-09-08] VITALS (7 sets, daily range): BP systolic 121–154; BP diastolic 62–78; PULSE 69–86; RESP 14–18; TEMP 36.4–36.8; O2SAT 96–98; BMI 23.0
--- NOTE | 2024-09-08 08:58 | MHC.SHP ---
Pre-Procedural Eval Section A - 24 Hr Update-Section A only Date of Service: 09/08/24 Section B - Complete if H&P > 30 days Chief Complaint: Major depressive disorder, recurrent, severe with Details of Present Illness: stable but now living alone asstd living in [facility]. no new med problems has early dementia process on namenda Medical History: No relevant PMH Allergies: Allergies Allergy/AdvReac Type Severity Reaction Status Date / Time No Known Allergies Allergy Verified 05/26/24 20:50 [No Known Allergies*] Review of Systems Sugical H&P ROS: Negative: Cardiovascular and Respiratory and Yes, Specify: Neurological (impaired st memory) Exam Surgical H&P Exam: Normal: Heart and Normal: Lungs Plan Diagnosis/Plan: Unchanged I have reviewed the history and physical and performed a pertinent physical examination on my patient. No changes have occurred unless specified. Time Spent With Patient Time: Total time managing care of this patient today30 ____ minutes.
--- NOTE | 2024-09-08 09:00 | HO.ECTPROC ---
ECT Procedure Note Diagnosis/Treatment Date of Service: 09/11/24 Diagnosis: Major Depressive Disorder Previous ECT Date: 09/08/24 Treatment: Maintenance Interval Clinical Notes: Pt states she has generally been feeling better ., alert and oriented but states she has definitely been more forgetful over time and has been started on memantine. ECT continues to be a stabilizing influence on her treatment no relapse symptoms. This is in spite her now being on a locked assisted living unit she does see him on a daily basis. Right unilateral treatment completed as usual well tolerated. 72nd seizure would decreased energy to 10% next treatment follow-up 4 weeks. Patient or provider to call as needed needs to have earlier treatment. She does see Dr. Leonardo guerrero Time: Total time managing care of this patient today _30___ minutes. ECT Settings Device: THYMATRON DGx Electrode Placement: Right Unilateral Program/Pulse Width: 0.25 Energy Percent: 20 Seizure Duration By EEG (in seconds): 70 Medications Administration General Anesthetic: Etomidate (14) Muscle Relaxant: Succinylcholine (80) Ancillary Medications Anti-emetics: Zofran - Pre ECT Airway Management Airway Management: Bag Mask Ventilation Treatment Recommendations Energy Percent: 10 Pt Tolerated Procedure w/o Issue: Yes
--- NOTE | 2024-09-08 09:05 | P.CONAN_ITS ---
HPI - Anesthesia Eval Consult details Narrative: 84 yo female patient for ECT PMFSH Active Problems Active Problems: All Active Problems Major depressive disorder, recurrent severe without psychotic features (Acute) OCD (obsessive compulsive disorder) (Acute) Abnormal finding on EKG (Acute) Past Medical History Medical History OCD (obsessive compulsive disorder) Major depressive disorder, recurrent severe without psychotic features S/P ECT (electroconvulsive therapy) Family History Family History Mother CHF (congestive heart failure) Family history of problems with anesthesia: No Surgical History Surgical History No history of previous surgery History of Problems with Anesthesia: No Social History Social History Household Members: Spouse Housing: Condominium Housing Other:: Custodial community Do you presently have visiting nurse or other home services: No Patient Tobacco Use Status: Never used Tobacco Advance Directives: No Advance Directives Information Provided: Yes service: No Sexual orientation: Straight/Heterosexual Meds Allergies Allergy/AdvReac Type Severity Reaction Status Date / Time No Known Allergies Allergy Verified 05/26/24 20:50 [No Known Allergies*] Exam Height,Weight and Vital Signs: Height 5 ft 3 in Weight 58.967 kg Vital Signs Temp Pulse Resp BP Pulse Ox O2 Del Method 09/08/24 09:06 98 F 69 18 121/68 96 Room Air Airway Mallampati Class: II TM Dist: >3cm Neck ROM: Full Loose/Missing/Broken Teeth: No Heart: RRR Lungs: CTAB Assessment and Plan Assessment Anesthesia Assessment: Anesthesia Plan Discussed and Chart Reviewed Final Anesthetic Review Family History of Problems with Anesthesia: No History of Problems with Anesthesia: No NPO: Yes ASA Class: III Final Preanesthetic Review: No Changes in Pt Med Stat, Meds/Allgs Chart Reviewed, Consent Obtained/Reviewed and Anes Risks/Benef Reviewed Patient Risk: Intermediate Procedure Risk: Intermediate Assessment/Block/Sedation in SS: Assess/Block/Sedation-SS Anesthetic Plan Anesthetic Plan: GA Disposition: Standard PACU
== END 2024-09-08 10:35 | disposition home or self-care (01) ==
PROVIDERS: PCP Family Medicine; Visit Provider Psychiatry & Neurology Psychiatry
PROC: (CPT 90870; principal; 2024-09-08 09:30)
DX: F33.2 Major depressive disorder, recurrent severe without psychotic features (principal); F42.9 Obsessive-compulsive disorder, unspecified; Z79.899 Other long term (current) drug therapy
CPT/HCPCS: 90870; J0330; J2405

== ENCOUNTER → 2024-09-08 08:05 | Outpatient (BNV) | payer MEDICARE, SELFPAY | PROVIDERS: PCP Family Medicine; Visit Provider Psychiatry & Neurology Psychiatry | DX: F33.3 Major depressive disorder, recurrent, severe with psychotic symptoms (principal) | CPT/HCPCS: 90870 ==

== ENCOUNTER 2024-10-06 08:04 | Day surgery (SDC) | payer MEDICARE, SELFPAY ==
[2024-10-06] VITALS (7 sets, daily range): BP systolic 124–175; BP diastolic 59–86; PULSE 64–83; RESP 14–16; TEMP 36.2–36.4; O2SAT 93–100; BMI 23.9
[2024-10-06] MEDS: Lactated Ringers 1,000 ML 100 ML IVCONT (08:33)
--- NOTE | 2024-10-06 08:57 | P.HPSUR_ITS ---
Pre-Procedural Eval Section A - 24 Hr Update-Section A only Date of Service: 10/06/24 Section B - Complete if H&P > 30 days Chief Complaint: Major depressive disorder, recurrent, severe with Details of Present Illness: stable but now living alone asstd living in [facility]. no new med problems has early dementia process on namenda Present Medications: see Short Stay Collaborative assessment Medical History: No relevant PMH History of Previous Operations: Relevant previous surgery/procedure and date(s) (ect) Allergies: Allergies Allergy/AdvReac Type Severity Reaction Status Date / Time No Known Allergies Allergy Verified 05/26/24 20:50 [No Known Allergies*] Review of Systems Sugical H&P ROS: Negative: Cardiovascular and Respiratory and Yes, Specify: Neurological (impaired st memory slowed gait) Exam Surgical H&P Exam: Normal: Heart and Normal: Lungs Plan Diagnosis/Plan: Unchanged I have reviewed the history and physical and performed a pertinent physical examination on my patient. No changes have occurred unless specified. Time Spent With Patient Time: Total time managing care of this patient today ____ minutes.
--- NOTE | 2024-10-06 08:59 | HO.ECTPROC ---
ECT Procedure Note Diagnosis/Treatment Date of Service: 10/06/24 Diagnosis: Major Depressive Disorder Previous ECT Date: 09/11/24 Treatment: Maintenance Interval Clinical Notes: Pt mood stable continues with cognitive impairment knows my name place pres edna ribera books she is reading her h is in memory care on [address] effexor namenda Time: Total time managing care of this patient today _30___ minutes. ECT Settings Device: THYMATRON DGx Electrode Placement: Right Unilateral Program/Pulse Width: 0.25 Energy Percent: 10 Seizure Duration By EEG (in seconds): 58 Medications Administration General Anesthetic: Etomidate (14) Muscle Relaxant: Succinylcholine (80) Airway Management Airway Management: Bag Mask Ventilation Treatment Recommendations No Changes Recommended: No change Pt Tolerated Procedure w/o Issue: Yes
--- NOTE | 2024-10-06 09:18 | P.CONAN_ITS ---
HPI - Anesthesia Eval Consult details Narrative: 84 yo female patient for ECT PMFSH Active Problems Active Problems: All Active Problems Major depressive disorder, recurrent severe without psychotic features (Acute) OCD (obsessive compulsive disorder) (Acute) Abnormal finding on EKG (Acute) Past Medical History Medical History OCD (obsessive compulsive disorder) Major depressive disorder, recurrent severe without psychotic features S/P ECT (electroconvulsive therapy) Family History Family History Mother CHF (congestive heart failure) Family history of problems with anesthesia: No Surgical History Surgical History No history of previous surgery History of Problems with Anesthesia: No Social History Social History Household Members: Spouse Housing: Condominium Housing Other:: Senior Care community Do you presently have visiting nurse or other home services: No Patient Tobacco Use Status: Never used Tobacco Advance Directives: No Advance Directives Information Provided: Yes service: No Sexual orientation: Straight/Heterosexual Meds Allergies Allergy/AdvReac Type Severity Reaction Status Date / Time No Known Allergies Allergy Verified 05/26/24 20:50 [No Known Allergies*] Active Medications: Current Medications Lactated Ringer's (Lr) 1,000 mls @ 100 mls/hr IVCONT .Q10H DENISSE Last Admin: 10/06/24 08:33 Dose: 100 mls/hr Exam Height,Weight and Vital Signs: Height 5 ft 3 in Weight 61.235 kg Last Vital Signs Temp 97.2 F 10/06/24 09:13 Pulse 83 10/06/24 09:13 Resp 16 10/06/24 09:13 BP 175/86 H 10/06/24 09:13 Pulse Ox 100 10/06/24 09:13 O2 Del Method Nasal Cannula with Capnography 10/06/24 09:13 O2 Flow Rate 2 10/06/24 09:13 Airway Mallampati Class: II TM Dist: >3cm Neck ROM: Full Loose/Missing/Broken Teeth: No Heart: RRR Lungs: CTAB Assessment and Plan Assessment Anesthesia Assessment: Anesthesia Plan Discussed and Chart Reviewed Final Anesthetic Review Family History of Problems with Anesthesia: No History of Problems with Anesthesia: No NPO: Yes ASA Class: III Final Preanesthetic Review: No Changes in Pt Med Stat, Meds/Allgs Chart Reviewed, Consent Obtained/Reviewed and Anes Risks/Benef Reviewed Patient Risk: Intermediate Procedure Risk: Intermediate Anesthetic Plan Anesthetic Plan: GA Disposition: Standard PACU
== END 2024-10-06 10:32 | disposition home or self-care (01) ==
PROVIDERS: PCP Family Medicine; Visit Provider Psychiatry & Neurology Psychiatry
PROC: (CPT 90870; principal; 2024-10-06 09:00)
DX: F33.2 Major depressive disorder, recurrent severe without psychotic features (principal); R41.9 Unspecified symptoms and signs involving cognitive functions and awareness; F42.9 Obsessive-compulsive disorder, unspecified; Z79.899 Other long term (current) drug therapy; Z79.82 Long term (current) use of aspirin
CPT/HCPCS: 90870; J0330; J1805; J1920; J2405

== ENCOUNTER → 2024-10-06 08:04 | Outpatient (BNV) | payer MEDICARE, SELFPAY | PROVIDERS: PCP Family Medicine; Visit Provider Psychiatry & Neurology Psychiatry | DX: F33.2 Major depressive disorder, recurrent severe without psychotic features (principal) | CPT/HCPCS: 90870 ==

== ENCOUNTER 2024-11-02 13:03 | Outpatient (REF) | payer MEDICARE, BC, SELFPAY ==
--- NOTE | ~2024-11-02 | MR_ITS ---
EXAMINATION: MR BRAIN WITHOUT CONTRAST CLINICAL INFORMATION: Parkinson's disease. Memory issues. COMPARISON: Correlated to CT dated March 11, 2021. TECHNIQUE: MRI of the brain was obtained using routine sequences without contrast. FINDINGS: There are multiple scattered punctate susceptibility signal involving mostly the supratentorial compartment of the right cerebral hemisphere mostly the right temporal parietal occipital lobes. Bilateral multifocal patchy and confluent deep periventricular white matter and subcortical white matter hyperintense T2 FLAIR signal involving centrum semiovale and jo radiata. No acute intracranial hemorrhage, mass effect, midline shift, hydrocephalus or herniation. Prominence of the extra-axial CSF spaces cerebral sulci, ventricles and cerebellar folia. There is slight discrepancy of the prominent lateral ventricles and third ventricle with respect to the cerebral sulci. Sellar/suprasellar region demonstrated no signal abnormality or masses. No susceptibility signal abnormality within the substantia nigra. Flow-void signal within the main cerebral vessels is normal. Craniocervical junction is intact and normal. MR/MR head/brain wo con IMPRESSION: Old microhemorrhages involving mostly right temporoparietal occipital. Consider cerebral amyloid microangiopathy versus hypertensive related. Consider normal pressure hydrocephalus in the correct clinical settings. No acute stroke/nonhemorrhagic ischemia. Small vessel occlusive disease.. Electronically signed by: Guzman Ridley MD 11/03/2024 07:42 AM EDT
== END 2024-11-02 13:04 | disposition home or self-care (01) ==
LOC: HO.MRI 13:03
PROVIDERS: PCP Internal Medicine; Visit Provider Psychiatry & Neurology Neurology
DX: G20.C Parkinsonism, unspecified (principal)
CPT/HCPCS: 70551

== ENCOUNTER → 2024-11-02 14:00 | Outpatient (BNV) | payer MEDICARE, BC, SELFPAY | PROVIDERS: PCP Internal Medicine; Visit Provider Radiology Diagnostic Radiology | DX: G20.C Parkinsonism, unspecified (principal); I61.1 Nontraumatic intracerebral hemorrhage in hemisphere, cortical | CPT/HCPCS: 70551 ==

== ENCOUNTER 2024-11-03 07:38 | Day surgery (SDC) | payer MEDICARE, SELFPAY ==
--- NOTE | 2024-11-02 16:13 | HO.ANESPROP2 ---
HPI - Anesthesia Eval Consult details Narrative: 84 yo female patient for ECT PMFSH Active Problems Active Problems: All Active Problems Major depressive disorder, recurrent severe without psychotic features (Acute) OCD (obsessive compulsive disorder) (Acute) Abnormal finding on EKG (Acute) Past Medical History Medical History OCD (obsessive compulsive disorder) Major depressive disorder, recurrent severe without psychotic features S/P ECT (electroconvulsive therapy) Family History Family History Mother CHF (congestive heart failure) Family history of problems with anesthesia: No Surgical History Surgical History No history of previous surgery History of Problems with Anesthesia: No Social History Social History Household Members: Spouse Housing: Condominium Housing Other:: Long-Term community Do you presently have visiting nurse or other home services: No Patient Tobacco Use Status: Never used Tobacco Advance Directives: No Advance Directives Information Provided: Yes service: No Sexual orientation: Straight/Heterosexual Meds Allergies Allergy/AdvReac Type Severity Reaction Status Date / Time No Known Allergies Allergy Verified 05/26/24 20:50 [No Known Allergies*] Exam Height,Weight and Vital Signs: Height 5 ft 3 in Weight 61.235 kg Vital Signs Temp Pulse Resp BP Pulse Ox O2 Del Method 11/03/24 07:48 98.2 F 83 20 155/78 H 96 Room Air Airway Mallampati Class: II TM Dist: >3cm Neck ROM: Full Loose/Missing/Broken Teeth: No Heart: RRR Lungs: CTAB Assessment and Plan Assessment Anesthesia Assessment: Anesthesia Plan Discussed and Chart Reviewed Final Anesthetic Review Family History of Problems with Anesthesia: No History of Problems with Anesthesia: No NPO: Yes ASA Class: III Final Preanesthetic Review: No Changes in Pt Med Stat, Meds/Allgs Chart Reviewed, Consent Obtained/Reviewed and Anes Risks/Benef Reviewed Patient Risk: Intermediate Procedure Risk: Intermediate Anesthetic Plan Anesthetic Plan: GA Disposition: Standard PACU
[2024-11-03] VITALS (7 sets, daily range): BP systolic 143–155; BP diastolic 78–88; PULSE 81–84; RESP 15–20; TEMP 36.6–36.8; O2SAT 93–98; BMI 23.9
[2024-11-03] MEDS: Lactated Ringers 1,000 ML 50 ML IVCONT (07:50)
--- NOTE | 2024-11-03 08:09 | P.HPSUR_ITS ---
Pre-Procedural Eval Section A - 24 Hr Update-Section A only Date of Service: 11/03/24 Section B - Complete if H&P > 30 days Chief Complaint: Major depressive disorder, recurrent, severe with Details of Present Illness: stable but now living alone asstd living in [facility]. has early dementia process on nam[place] ? parkinsons feels ect helpful Present Medications: see Short Stay Collaborative assessment Medical History: No relevant PMH History of Previous Operations: Relevant previous surgery/procedure and date(s) (ect) Allergies: Allergies Allergy/AdvReac Type Severity Reaction Status Date / Time No Known Allergies Allergy Verified 05/26/24 20:50 [No Known Allergies*] Review of Systems Sugical H&P ROS: Negative: Cardiovascular and Respiratory and Yes, Specify: Neurological (impaired st memory slowed gait) and Psychiatric (depressed over situation no si) Exam Surgical H&P Exam: Normal: Heart and Normal: Lungs Plan Diagnosis/Plan: Unchanged I have reviewed the history and physical and performed a pertinent physical examination on my patient. No changes have occurred unless specified. Time Spent With Patient Time: Total time managing care of this patient today ____ minutes.
--- NOTE | 2024-11-03 08:10 | HO.ECTPROC ---
ECT Procedure Note Diagnosis/Treatment Date of Service: 11/03/24 Diagnosis: Major Depressive Disorder Previous ECT Date: 09/11/24 Treatment: Maintenance Interval Clinical Notes: Pt mood stable continues with cognitive impairment knows my name place pres edna ribera books she is reading her h is in memory care on abilfy effexor namendarecent dx parkinsons Have propofol available to stop seizure if needed Time: Total time managing care of this patient today ____ minutes. ECT Settings Device: THYMATRON DGx Electrode Placement: Right Unilateral Program/Pulse Width: 0.25 Energy Percent: 10 Seizure Duration By EEG (in seconds): 96 Medications Administration General Anesthetic: Etomidate (14) Muscle Relaxant: Succinylcholine (80) Ancillary Medications Anti-emetics: Zofran - Pre ECT Airway Management Airway Management: Bag Mask Ventilation Treatment Recommendations No Changes Recommended: No change Pt Tolerated Procedure w/o Issue: Yes
== END 2024-11-03 09:46 | disposition home or self-care (01) ==
PROVIDERS: PCP Internal Medicine; Visit Provider Psychiatry & Neurology Psychiatry
PROC: (CPT 90870; principal; 2024-11-03 07:30)
DX: F33.2 Major depressive disorder, recurrent severe without psychotic features (principal); R41.9 Unspecified symptoms and signs involving cognitive functions and awareness; F42.9 Obsessive-compulsive disorder, unspecified; Z79.899 Other long term (current) drug therapy; Z79.82 Long term (current) use of aspirin
CPT/HCPCS: 90870; J0330; J2405; J2704

== ENCOUNTER → 2024-11-03 07:38 | Outpatient (BNV) | payer MEDICARE, SELFPAY | PROVIDERS: PCP Internal Medicine; Visit Provider Psychiatry & Neurology Psychiatry | DX: F33.2 Major depressive disorder, recurrent severe without psychotic features (principal) | CPT/HCPCS: 90870 ==

== ENCOUNTER 2024-11-08 19:45 | Inpatient (IN) | payer MEDICARE, SELFPAY ==
[2024-11-08 19:45] VITALS: BP 176/76; PULSE 78; RESP 16; TEMP 36.9; O2SAT 97; BMI 23.9
--- NOTE | 2024-11-08 19:46 | ED.PSYCH ---
HPI - Psych General Chief Complaint: Psychiatric Symptoms Stated Complaint: psych eval Time Seen by Provider: 11/08/24 21:22 Related Data Home Medications ?Medication ?Instructions ?Recorded ?Confirmed acetaminophen 500 mg tablet 500 mg PO TID PRN pain 11/09/24 11/09/24 (Acetaminophen Extra Strength) docusate sodium 100 mg capsule 100 mg PO BEDTIME constipation 11/09/24 11/09/24 (Colace) memantine 7 mg capsule 7 mg PO DAILY 11/09/24 11/09/24 sprinkle,extended release 24hr sennosides 8.6 mg tablet (senna) 8.6 mg PO BEDTIME 11/09/24 11/09/24 trazodone 50 mg tablet 50 mg PO BEDTIME 11/09/24 11/09/24 Previous Rx's ?Medication ?Instructions ?Recorded aripiprazole 5 mg tablet (Abilify) 5 mg PO DAILY #30 tabs 06/08/24 aspirin 81 mg tablet,delayed 81 mg PO DAILY #30 tabs 06/08/24 release venlafaxine 150 mg 150 mg PO DAILY #30 caps 06/08/24 capsule,extended release 24 hr Allergies Allergy/AdvReac Type Severity Reaction Status Date / Time No Known Allergies Allergy Verified 11/08/24 19:51 [No Known Allergies*] PMFSH Past Medical History Medical History OCD (obsessive compulsive disorder) Major depressive disorder, recurrent severe without psychotic features S/P ECT (electroconvulsive therapy) Surgical History No history of previous surgery Family History Family History Mother CHF (congestive heart failure) Social History Social History Household Members: None Housing: Apartment Housing Other:: [facility] Do you presently have visiting nurse or other home services: Yes ([facility]) Patient Tobacco Use Status: Never used Tobacco Use of substances other than those prescribed or required for medical reasons: No Currently Displaying Signs/Symptoms of Drug Intoxication Withdrawal: No Any prior treatment program specific to substance use: No Have you been hit, kicked, punched, or otherwise hurt by someone within the past year? If so, by whom?: No Do you feel safe in your current relationship?: Yes Is there a partner from a previous relationship who is making you feel unsafe now?: No Are you made to feel afraid or neglected: No Advance Directives: No Advance Directives Information Provided: Yes Do you have a plan to hurt others: No Plan Recently lost weight without trying: No How much weight loss: Not applicable Eating poorly because of decreased appetite: No Nutrition screen score: 0 Nutrition Risks: No Nutritional Risk Patient : No : No Poor oral hygiene: Yes (I brush, but not very well. ) service: No Sexual orientation: Straight/Heterosexual Physical Exam Vital Signs: Vital Signs: Last Vital Signs Temp 98.2 F 11/09/24 15:38 Pulse 98 11/09/24 15:38 Resp 15 11/09/24 15:38 BP 177/88 H 11/09/24 15:38 Pulse Ox 95 11/09/24 15:38 O2 Del Method Room Air 11/09/24 15:38 BMI result Body Mass Index 23.9 Course Course Course Narrative: This is a Rapid Medical Exam performed in triage by Tracy Forrest PA-C. Full HPI, ROS and PE to be performed by primary ED provider. 84 yo F w/pmhx OCD, MDD, ECT, Parkinson's disease, presenting to the ED c/o major depression x few weeks s/p new diagnosis of Parkinson's Dz & pts just moved into Memory Care Unit in Jul. +Admits to SI w/o plan. Denies HI. Last ECT on Wednesday. Admits to medication compliance. Pts resides in Assisted Living & they manage her meds PE: A&Ox2, slow to respond, withdrawn Plan: Labs, UA, CARE team eval Reevaluation(s) Reevaluation #1: This is a duplicate note. The other note was initiated by Dr. Yara Krueger. The patient is an 84-year-old woman who presented with severe anxiety and vague suicidality who was medically cleared and assessed by the care team with recommendation for inpatient treatment. The patient was admitted to our [facility]. No acute incidents. Time: 16:58 Medications Administered Generic Name Dose Route Start Last Admin Trade Name Freq PRN Reason Stop Dose Admin Aripiprazole 5 mg 11/09/24 09:00 11/09/24 10:21 Aripiprazole 5 Mg Tablet PO 5 mg DAILY DENISSE Administration Aspirin 81 mg 11/09/24 09:00 11/09/24 10:21 Aspirin Enteric Coated 81 Mg Tablet.Dr PO 81 mg DAILY DENISSE Administration Venlafaxine HCl 150 mg 11/09/24 09:00 11/09/24 10:21 Venlafaxine Hcl Er 150 Mg Cap.Er.24h PO 150 mg DAILY DENISSE Administration Discontinued Medications Generic Name Dose Route Start Last Admin Trade Name Arturoq PRN Reason Stop Dose Admin Trazodone HCl 50 mg 11/09/24 01:22 11/09/24 01:37 Trazodone Hcl 50 Mg Tablet PO 11/09/24 01:23 50 mg ONCE ONE Administration Medical Decision Making Lab Data 11/08/24 19:58 11/08/24 19:58 Labs: Lab Results 11/08/24 11/08/24 Range/Units 19:58 21:01 WBC 9.6 (4.8-10.8) X10*3/uL RBC 4.65 (4.20-5.50) X10*6/uL Hgb 14.2 (12.0-16.0) g/dl Hct 41.4 (37.0-47.0) % MCV 89.0 (80.0-98.0) fL MCH 30.5 (27.0-33.0) pg MCHC 34.3 (31.0-35.0) g/dl RDW 13.6 (11.0-16.0) % Plt Count 229 (160-400) X10*3/uL MPV 10.1 (9.4-12.3) fL Immature Gran % (Auto) 0.2 (0.0-0.4) % Neut % (Auto) 64.3 (45-73) % Lymph % (Auto) 25.6 (20-40) % [place] % (Auto) 8.8 (2-11) % Eos % (Auto) 0.6 (0-4) % Baso % (Auto) 0.5 (0-2) % Lymph # (Auto) 2.5 (1.2-4.9) X10*3/uL [place] # (Auto) 0.9 (0.1-1.2) X10*3/uL Eos # (Auto) 0.1 (0.0-0.4) X10*3/uL Baso # (Auto) 0.1 (0.0-0.2) X10*3/uL Abs Immat Gran (auto) 0.02 (0.00-0.03) X10*3/uL Absolute Neuts (auto) 6.2 (2.0-8.3) x10*3/uL Absolute Nucleated RBC 0.000 (0.0-0.012) X10*3/uL Nucleated RBC % (auto) 0.0 (0.0-0.2) /100WBC Sodium 135 (135-145) mmol/L Potassium 4.4 (3.3-5.1) mmol/L Chloride 99 (96-108) mmol/L Carbon Dioxide 27 (22-29) mmol/L Anion Gap 13 (12-20) BUN 19 H (9-16) mg/dL Creatinine 0.92 (0.5-1.4) mg/dL Estim Creat Clear Calc 38.9 Estimated GFR 58 Random Glucose 122 H (60-115) mg/dL Calcium 9.4 (8.4-10.2) mg/dL Magnesium 2.1 (1.6-2.6) mg/dL Total Bilirubin 0.4 (0.0-1.0) mg/dL Direct Bilirubin 0.1 (0.0-0.5) mg/dL AST 24 (5-31) U/L ALT 26 (0-31) U/L Alkaline Phosphatase 82 (39-117) U/L Total Protein 6.6 (6.5-8.0) g/dL Albumin 4.3 (3.5-5.0) g/dL Urine Color Yellow Urine Appearance Clear Urine pH 5.5 (5.0-9.0) Ur Specific [place] 1.020 (1.005-1.025) Urine Protein Negative (Neg-Trace) mg/dL Urine Glucose (UA) Negative (Negative) mg/dL Urine Ketones Trace (Negative) mg/dL Urine Blood Negative (Negative) Urine Nitrite Negative (Negative) Ur Leukocyte Esterase Moderate (2+) H (Negative) Urine RBC 0-2 (0-2) /HPF Urine WBC 21-50 H (0-5) /HPF Ur Squamous Epith Cells 3-5 (0-2) /HPF Urine Bacteria None Seen (None Seen) Hyaline Casts 0-2 (0-2) /LPF Urine Opiates Screen Not Detected (Not Detect) Ur Buprenorphine Scrn Not Detected (Not Detect) ng/mL Ur Oxycodone Screen Not Detected (Not Detect) ng/mL Urine Methadone Screen Not Detected (Not Detect) ng/mL Urine Fentanyl Screen Not Detected (Not Detect) Ur Barbiturates Screen Not Detected (Not Detect) Ur Phencyclidine Scrn Not Detected (Not Detect) Ur Amphetamines Screen Not Detected (Not Detect) U Benzodiazepines Scrn Not Detected (Not Detect) Urine Cocaine Screen Not Detected (Not Detect) U Marijuana (THC) Screen Not Detected (Not Detect) Ethyl Alcohol < 10 mg/dL Discharge Plan Discharge Clinical Impression: Depression Patient Disposition: Admitted As Inpatient Interventions: [place]-Suicide Risk Severity Scale Last Done: 11/09/24 16:00 Admission Worksheet (ED) Last Done: 11/09/24 15:23 Discharge Date/Time: 11/09/24 15:24
[2024-11-08 20:03] LABS: MANUAL DIFF FLAG NO
[2024-11-08 20:04] LABS: Basophils Absolute Auto 0.1 X10*3/uL (0.0-0.2); Basophils Percent Auto 0.5 % (0-2); Eosinophils Absolute Auto 0.1 X10*3/uL (0.0-0.4); Eosinophils Percent Auto 0.6 % (0-4); Hematocrit 41.4 % (37.0-47.0); Hemoglobin 14.2 g/dl (12.0-16.0); Imm Gran Abs Auto 0.02 X10*3/uL (0.00-0.03); Imm Gran Pct Auto 0.2 % (0.0-0.4); Lymphocytes Absolute Auto 2.5 X10*3/uL (1.2-4.9); Lymphocytes Percent Auto 25.6 % (20-40); Mean Corpuscular HGB Conc 34.3 g/dl (31.0-35.0); Mean Corpuscular Hemoglobin 30.5 pg (27.0-33.0); Mean Platelet Volume 10.1 fL (9.4-12.3); Monocytes Absolute Auto 0.9 X10*3/uL (0.1-1.2); Monocytes Percent Auto 8.8 % (2-11); Neutrophils Absolute Auto 6.2 x10*3/uL (2.0-8.3); Neutrophils Percent Auto 64.3 % (45-73); Platelet Count 229 X10*3/uL (160-400); Red Blood Count 4.65 X10*6/uL (4.20-5.50); Red Cell Distribution Width 13.6 % (11.0-16.0); White Blood Count 9.6 X10*3/uL (4.8-10.8)
[2024-11-08 20:16] LABS: Ethanol < 10 mg/dL
[2024-11-08 20:18] LABS: Alanine Aminotransferase 26 U/L (0-31); Albumin Level 4.3 g/dL (3.5-5.0); Alkaline Phosphatase 82 U/L (39-117); Anion Gap 13 (12-20); Aspartate Amino Transferase 24 U/L (5-31); Bilirubin Direct 0.1 mg/dL (0.0-0.5); Bilirubin Total 0.4 mg/dL (0.0-1.0); Blood Urea Nitrogen 19 mg/dL (9-16); Calcium 9.4 mg/dL (8.4-10.2); Carbon Dioxide 27 mmol/L (22-29); Chloride 99 mmol/L (96-108); Creatinine Clr Calc Pharmacy 38.9; Estimated Glomerular Filt Rate 58; Glucose Random 122 mg/dL (60-115); Magnesium 2.1 mg/dL (1.6-2.6); Potassium 4.4 mmol/L (3.3-5.1); Sodium 135 mmol/L (135-145); Total Protein 6.6 g/dL (6.5-8.0)
[2024-11-08 21:10] LABS: Appearance Urine Clear; Color Urine Yellow; Glucose Urine UA Negative (Negative); Leukocyte Esterase Urine Moderate (2+) (Negative); Nitrite Urine Negative (Negative); PH 5.5 (5.0-9.0); UMIC TRIGGER UACC YES; Urine Blood Negative (Negative); Urine Ketones Trace mg/dL (Negative); Urine Protein Negative (Neg-Trace)
[2024-11-08 21:21] LABS: Bacteria Urine None Seen (None Seen); Hyaline Casts Urine 0-2 /LPF (0-2); RBC Urine 0-2 /HPF (0-2); UACC Culture Trigger YES; WBC Urine 21-50 /HPF (0-5)
[2024-11-08 21:30] LABS: Amphetamine Screen Urine Not Detected (Not Detect); Barbiturates, Urine Not Detected (Not Detect); Benzodiazepines Screen Urine Not Detected (Not Detect); Buprenorphine Scr Not Detected (Not Detect); Cannabinoid Screen Urine Not Detected (Not Detect); Cocaine Screen Urine Not Detected (Not Detect); Fentanyl, urine Not Detected (Not Detect); Methadone Screen, Urine Not Detected (Not Detect); Opiate Screen Urine Not Detected (Not Detect); Oxycodone Screen Urine Not Detected (Not Detect); Phencyclidine Screen Urine Not Detected (Not Detect)
--- NOTE | 2024-11-08 23:23 | ED_ITS ---
HPI - Psych General Chief Complaint: Psychiatric Symptoms Stated Complaint: psych eval Time Seen by Provider: 11/08/24 21:22 History of Present Illness HPI Narrative: Patient is an 84-year-old female with a history of depression currently getting ECT treatments. Presented today with having depression having suicidal thoughts. Patient has no specific plans. Sent in for further evaluation. Related Data Home Medications ?Medication ?Instructions ?Recorded ?Confirmed acetaminophen 500 mg tablet 500 mg PO TID PRN pain 11/09/24 11/09/24 (Acetaminophen Extra Strength) docusate sodium 100 mg capsule 100 mg PO BEDTIME constipation 11/09/24 11/09/24 (Colace) memantine 7 mg capsule 7 mg PO DAILY 11/09/24 11/09/24 sprinkle,extended release 24hr sennosides 8.6 mg tablet (senna) 8.6 mg PO BEDTIME 11/09/24 11/09/24 trazodone 50 mg tablet 50 mg PO BEDTIME 11/09/24 11/09/24 Previous Rx's ?Medication ?Instructions ?Recorded aripiprazole 5 mg tablet (Abilify) 5 mg PO DAILY #30 tabs 06/08/24 aspirin 81 mg tablet,delayed 81 mg PO DAILY #30 tabs 06/08/24 release venlafaxine 150 mg 150 mg PO DAILY #30 caps 06/08/24 capsule,extended release 24 hr Allergies Allergy/AdvReac Type Severity Reaction Status Date / Time No Known Allergies Allergy Verified 11/08/24 19:51 [No Known Allergies*] Review of Systems 2 Review of Systems: No fever no chills no systemic complaints PMFSH Past Medical History Medical History OCD (obsessive compulsive disorder) Major depressive disorder, recurrent severe without psychotic features S/P ECT (electroconvulsive therapy) Surgical History No history of previous surgery Family History Family History Mother CHF (congestive heart failure) Social History Social History Household Members: None Housing: Apartment Housing Other:: Residential community Do you presently have visiting nurse or other home services: Yes ([employer] [facility]) Patient Tobacco Use Status: Never used Tobacco Use of substances other than those prescribed or required for medical reasons: No Currently Displaying Signs/Symptoms of Drug Intoxication Withdrawal: No Any prior treatment program specific to substance use: No Have you been hit, kicked, punched, or otherwise hurt by someone within the past year? If so, by whom?: No Do you feel safe in your current relationship?: Yes Is there a partner from a previous relationship who is making you feel unsafe now?: No Are you made to feel afraid or neglected: No Advance Directives: No Advance Directives Information Provided: Yes Do you have a plan to hurt others: No Plan Recently lost weight without trying: No How much weight loss: Not applicable Eating poorly because of decreased appetite: No Nutrition screen score: 0 Nutrition Risks: No Nutritional Risk Patient : No : No Poor oral hygiene: Yes (I brush, but not very well. ) service: No Sexual orientation: Straight/Heterosexual Physical Exam 2 Vital Signs: Vital Signs: Last Vital Signs Temp 98.2 F 11/09/24 15:38 Pulse 98 11/09/24 15:38 Resp 15 11/09/24 15:38 BP 177/88 H 11/09/24 15:38 Pulse Ox 95 11/09/24 15:38 O2 Del Method Room Air 11/09/24 15:38 BMI result Body Mass Index 23.9 Appearance: Alert. Oriented X3. No acute distress. Eyes: Pupils equal, round and reactive to light. ENT: Pharynx normal. Neck: Normal inspection. Neck supple. No lymph nodes noted. No crepitus CVS: Normal heart rate and rhythm. Pulses normal. Normal S1 and S2 Respiratory: No respiratory distress. Breath sounds normal. No Wheezing. No rales Abdomen: Soft and nontender. No rigidity. No distention. good BS x4 Skin: Skin warm and dry. Normal skin color. Normal skin turgor. Extremities: No lower extremity edema. Neurovascular intact to all extremities. No Lacerations. No Rash Neuro: Oriented X 3. No motor deficit. No sensory deficit. Moving all extermities. No slurred speech. Cranial nerves grossly intact Course Reevaluation(s) Reevaluation #1: The patient was signed out to me at change of shift by the previous emergency physician. The patient is an 84-year-old woman who was brought to the hospital because of anxiety and depression. She was medically cleared. The patient was seen by the care team who recommended geriatric psychiatric hospitalization. She was admitted to the [facility] unit without incident. (this is a 2nd note for the same ER visit. An initial note has been opened by the physician itinerant teacher assistant who 1st saw the patient). Time: 17:01 Medications Administered Generic Name Dose Route Start Last Admin Trade Name Freq PRN Reason Stop Dose Admin Aripiprazole 5 mg 11/09/24 09:00 11/09/24 10:21 Aripiprazole 5 Mg Tablet PO 5 mg DAILY DENISSE Administration Aspirin 81 mg 11/09/24 09:00 11/09/24 10:21 Aspirin Enteric Coated 81 Mg Tablet.Dr PO 81 mg DAILY DENISSE Administration Venlafaxine HCl 150 mg 11/09/24 09:00 11/09/24 10:21 Venlafaxine Hcl Er 150 Mg Cap.Er.24h PO 150 mg DAILY DENISSE Administration Discontinued Medications Generic Name Dose Route Start Last Admin Trade Name Freq PRN Reason Stop Dose Admin Trazodone HCl 50 mg 11/09/24 01:22 11/09/24 01:37 Trazodone Hcl 50 Mg Tablet PO 11/09/24 01:23 50 mg ONCE ONE Administration Medical Decision Making Medical Decision Making [facility] Narrative: Patient medically cleared awaiting crisis evaluation. Differential Diagnosis Differential Diagnoses: The differential diagnosis associated with the presentation includes Depression anxiety Admission/Observation Consideration of admission/observation: Escalation of care including admission/observation considered Consult Healthcare Provider Management of the patient was discussed with: Senior Case Manager (Care team) Lab Data [facility] Lab Attestation statement: I reviewed the patient's lab results. 11/08/24 19:58 11/08/24 19:58 Labs: Lab Results 11/08/24 11/08/24 Range/Units 19:58 21:01 WBC 9.6 (4.8-10.8) X10*3/uL RBC 4.65 (4.20-5.50) X10*6/uL Hgb 14.2 (12.0-16.0) g/dl Hct 41.4 (37.0-47.0) % MCV 89.0 (80.0-98.0) fL MCH 30.5 (27.0-33.0) pg MCHC 34.3 (31.0-35.0) g/dl RDW 13.6 (11.0-16.0) % Plt Count 229 (160-400) X10*3/uL MPV 10.1 (9.4-12.3) fL Immature Gran % (Auto) 0.2 (0.0-0.4) % Neut % (Auto) 64.3 (45-73) % Lymph % (Auto) 25.6 (20-40) % [place] % (Auto) 8.8 (2-11) % Eos % (Auto) 0.6 (0-4) % Baso % (Auto) 0.5 (0-2) % Lymph # (Auto) 2.5 (1.2-4.9) X10*3/uL [place] # (Auto) 0.9 (0.1-1.2) X10*3/uL Eos # (Auto) 0.1 (0.0-0.4) X10*3/uL Baso # (Auto) 0.1 (0.0-0.2) X10*3/uL Abs Immat Gran (auto) 0.02 (0.00-0.03) X10*3/uL Absolute Neuts (auto) 6.2 (2.0-8.3) x10*3/uL Absolute Nucleated RBC 0.000 (0.0-0.012) X10*3/uL Nucleated RBC % (auto) 0.0 (0.0-0.2) /100WBC Sodium 135 (135-145) mmol/L Potassium 4.4 (3.3-5.1) mmol/L Chloride 99 (96-108) mmol/L Carbon Dioxide 27 (22-29) mmol/L Anion Gap 13 (12-20) BUN 19 H (9-16) mg/dL Creatinine 0.92 (0.5-1.4) mg/dL Estim Creat Clear Calc 38.9 Estimated GFR 58 Random Glucose 122 H (60-115) mg/dL Calcium 9.4 (8.4-10.2) mg/dL Magnesium 2.1 (1.6-2.6) mg/dL Total Bilirubin 0.4 (0.0-1.0) mg/dL Direct Bilirubin 0.1 (0.0-0.5) mg/dL AST 24 (5-31) U/L ALT 26 (0-31) U/L Alkaline Phosphatase 82 (39-117) U/L Total Protein 6.6 (6.5-8.0) g/dL Albumin 4.3 (3.5-5.0) g/dL Urine Color Yellow Urine Appearance Clear Urine pH 5.5 (5.0-9.0) Ur Specific [place] 1.020 (1.005-1.025) Urine Protein Negative (Neg-Trace) mg/dL Urine Glucose (UA) Negative (Negative) mg/dL Urine Ketones Trace (Negative) mg/dL Urine Blood Negative (Negative) Urine Nitrite Negative (Negative) Ur Leukocyte Esterase Moderate (2+) H (Negative) Urine RBC 0-2 (0-2) /HPF Urine WBC 21-50 H (0-5) /HPF Ur Squamous Epith Cells 3-5 (0-2) /HPF Urine Bacteria None Seen (None Seen) Hyaline Casts 0-2 (0-2) /LPF Urine Opiates Screen Not Detected (Not Detect) Ur Buprenorphine Scrn Not Detected (Not Detect) ng/mL Ur Oxycodone Screen Not Detected (Not Detect) ng/mL Urine Methadone Screen Not Detected (Not Detect) ng/mL Urine Fentanyl Screen Not Detected (Not Detect) Ur Barbiturates Screen Not Detected (Not Detect) Ur Phencyclidine Scrn Not Detected (Not Detect) Ur Amphetamines Screen Not Detected (Not Detect) U Benzodiazepines Scrn Not Detected (Not Detect) Urine Cocaine Screen Not Detected (Not Detect) U Marijuana (THC) Screen Not Detected (Not Detect) Ethyl Alcohol < 10 mg/dL Independent Historian Clinical information obtained from an independent historian. History obtained from or confirmed by: EMS External Record Review External record reviewed: Inpatient record Chronic Conditions Depression Social Determinants Patient?s care significantly limited by Social Determinants of Health including: Problems related to primary support group Discharge Plan Discharge Clinical Impression: Depression Patient Disposition: Admitted As Inpatient Interventions: [place]-Suicide Risk Severity Scale Last Done: 11/09/24 16:00 Admission Worksheet (ED) Last Done: 11/09/24 15:23 Discharge Date/Time: 11/09/24 15:24
--- NOTE | 2024-11-08 23:26 | MHC.EDTECH ---
this tech assumed care of pt @[id number]
[2024-11-09] MEDS: traZODone HCL 50 MG TABLET PO ×2 (01:37→20:33)
[2024-11-09 06:28] VITALS: BP 147/80; PULSE 84; RESP 15; TEMP 37; O2SAT 95
--- NOTE | 2024-11-09 10:09 | ECG_ITS ---
Test Reason : check for prolonged qt Blood Pressure : */* mmHG Vent. Rate : 77 BPM Atrial Rate : 77 BPM P-R Int : 146 ms QRS Dur : 70 ms QT Int : 392 ms P-R-T Axes : 72 17 64 degrees QTcB Int : 443 ms Normal sinus rhythm Right atrial enlargement Borderline ECG When compared with ECG of 27-May-2024 01:23, No significant change was found Referred By: Yara Krueger Electronically Signed By: ANGELICA MONTEIRO
[2024-11-09] MEDS: ARIPiprazole 5 MG TABLET PO (10:21)
[2024-11-09] MEDS: Aspirin Enteric Coated 81 MG TABLET.DR PO (10:21)
[2024-11-09] MEDS: Venlafaxine HCl ER 150 MG CAP.ER.24H PO (10:21)
--- NOTE | 2024-11-09 11:42 | PHA.MEDREC ---
Addendum entered by Owen Francis 11/09/24 12:07: reviewed Original Note: Pharmacy Consult ? Medication Reconciliation Pharmacy reviewed med rec done by nursing. Nurse utilized list from assisted living facility and confirmed med list matches.
[2024-11-09 14:56] VITALS: BP 163/84; PULSE 85; RESP 20; TEMP 36.8; O2SAT 96
[2024-11-09 15:38] VITALS: BP 177/88; PULSE 98; RESP 15; TEMP 36.8; O2SAT 95
[2024-11-09 15:41] VITALS: BMI 22.4
--- NOTE | 2024-11-09 16:32 | PC.ADMIT ---
Pt arrived on the unit at 1527 from ED POD. Precipitating even was patient recently being diagnosed with Parkinson's. Pt. has been admitted with depression, and SI without a plan. Pt here on a CV. Pt was receiving ECT through [facility], and the plan is for her to continue with this treatment. Pt appears to be delusional: I think you all are paid actors and are posing as nurses. If I don't go along with the notion that you are a nurse, the Ketamine therapy won't work. Pt is flat and appears depressed. Endorsing anxiety. She has a delayed response when answering questions. No issues concerning skin check. Independent with ambulation-no device needed.
[2024-11-09 20:00] VITALS: BP 176/84; PULSE 90; RESP 17; TEMP 36.2; O2SAT 94
[2024-11-09] MEDS: Docusate Sodium 100 MG CAPSULE PO (20:33)
[2024-11-10 08:00] VITALS: BP 160/86; PULSE 85; RESP 16; TEMP 36.7; O2SAT 95
--- NOTE | 2024-11-10 08:19 | HO.ECTCONS_ITS ---
History of Present Illness Data of Consult Service Date: 11/10/24 Primary Care Provider: Shasta Shell MD [facility] Reason for consult: ECT risk stratification Pt is an 84-year-old female with a PMH significant for Parkinson's, MDD, and OCD [facility] with hospitalist consult for ECT risk stratification. Pt has a long history of ECT and has been undergoing ECT on and off for many years. Has been on monthly ECT outpatient with Dr. Chambers since 06/2024 with last maintenance session one week ago on 11/03/2024. Reports it has helped her in the past and denies any problems secondary to ECT or anesthesia. No history of cerebral hemorrhage, stroke, or intracranial mass/lesion. Denies history of seizure, TBI, bleeding disorder or otherwise unstable vascular aneurysm. No severe pulmonary conditions. Patient also denies any significant cardiac history. Currently patient has no acute medical complaints, including chest pain/pressure, palpitations. No shortness a breath or difficulty breathing. Denies fever, chills, nausea, vomiting, abdominal pain. No headache or acute vision changes. EKG reviewed which showed normal sinus rhythm without any significant ischemic changes from prior and QTc WNL at 443. Review of Systems 2 Review of Systems: Pt has no acute medical complaints. [facility] Medical History OCD (obsessive compulsive disorder) Major depressive disorder, recurrent severe without psychotic features S/P ECT (electroconvulsive therapy) Family History Mother CHF (congestive heart failure) Surgical History No history of previous surgery Social History Household Members: None Housing: Apartment Housing Other:: Care Home community Do you presently have visiting nurse or other home services: Yes ([facility] [facility]) Patient Tobacco Use Status: Never used Tobacco Use of substances other than those prescribed or required for medical reasons: No Currently Displaying Signs/Symptoms of Drug Intoxication Withdrawal: No Any prior treatment program specific to substance use: No Have you been hit, kicked, punched, or otherwise hurt by someone within the past year? If so, by whom?: No Do you feel safe in your current relationship?: Yes Is there a partner from a previous relationship who is making you feel unsafe now?: No Are you made to feel afraid or neglected: No Advance Directives: No Advance Directives Information Provided: Yes Do you have thoughts of harming others: None Do you have a plan to hurt others: No Plan Recently lost weight without trying: No How much weight loss: Not applicable Eating poorly because of decreased appetite: No Nutrition screen score: 0 Nutrition Risks: No Nutritional Risk Patient : No : No Poor oral hygiene: Yes (I brush, but not very well. ) service: No Sexual orientation: Straight/Heterosexual Meds Allergies Allergy/AdvReac Type Severity Reaction Status Date / Time No Known Allergies Allergy Verified 11/08/24 19:51 [No Known Allergies*] Active Medications: Current Medications Acetaminophen (Acetaminophen 325 Mg Tablet) 650 mg PO TID PRN PRN Reason: pain Acetaminophen (Acetaminophen 325 Mg Tablet) 650 mg PO Q6H PRN PRN Reason: Headache/Pain, Scale 1-10 Al Hydroxide/Mg Hydroxide (Magnesium Hydrox/Alum Hydrox 30 Ml Oral.Susp) 30 ml PO Q6H PRN PRN Reason: Heartburn/Nausea Aripiprazole (Aripiprazole 5 Mg Tablet) 5 mg PO DAILY [facility] Last Admin: 11/09/24 10:21 Dose: 5 mg Aspirin (Aspirin Enteric Coated 81 Mg Tablet.Dr) 81 mg PO DAILY [facility] Last Admin: 11/09/24 10:21 Dose: 81 mg Docusate Sodium (Docusate Sodium 100 Mg Capsule) 100 mg PO BEDTIME [facility] Last Admin: 11/09/24 20:33 Dose: 100 mg Magnesium Hydroxide (Milk Of Magnesia 30 Ml Oral.Susp) 30 ml PO DAILY PRN PRN Reason: Constipation Non-Formulary Medication (Memantine) 7 mg PO DAILY [facility] Senna (Sennosides 8.6 Mg Tablet) 8.6 mg PO BEDTIME [facility] Last Admin: 11/09/24 22:23 Dose: Not Given Trazodone HCl (Trazodone Hcl 50 Mg Tablet) 50 mg PO BEDTIME MRX1 PRN PRN Reason: Insomnia Last Admin: 11/09/24 20:33 Dose: 50 mg Venlafaxine HCl (Venlafaxine Hcl Er 150 Mg Cap.Er.24h) 150 mg PO DAILY [facility] Last Admin: 11/09/24 10:21 Dose: 150 mg Home Medications ?Medication ?Instructions ?Recorded ?Confirmed ?Last Taken ?Type acetaminophen 500 mg tablet 500 mg PO TID PRN pain 11/09/24 11/09/24 Unknown History (Acetaminophen Extra Strength) docusate sodium 100 mg capsule 100 mg PO BEDTIME constipation 11/09/24 11/09/24 11/07/24 20:00 History (Colace) memantine 7 mg capsule 7 mg PO DAILY 11/09/24 11/09/24 11/08/24 08:00 History sprinkle,extended release 24hr sennosides 8.6 mg tablet (senna) 8.6 mg PO BEDTIME 11/09/24 11/09/24 11/07/24 20:00 History trazodone 50 mg tablet 50 mg PO BEDTIME 11/09/24 11/09/24 Unknown History Physical Exam 2 Vital Signs and Narrative: Vital Signs: Last Vital Signs Temp 97.2 F 11/09/24 20:00 Pulse 90 11/09/24 20:00 Resp 17 11/09/24 20:00 BP 176/84 H 11/09/24 20:00 Pulse Ox 94 11/09/24 20:00 O2 Del Method Room Air 11/09/24 20:00 BMI result Body Mass Index 22.4 General: AOx3, no acute distress Resp: CTA bilaterally CVS: S1, S2, RRR GI: +BS, NT, no distention Skin: Warm, dry Neuro: Cranial nerves II-XII grossly intact bilaterally. Motor grossly intact bilaterally Extremities: No edema Psych: Affect flat, slow to respond but answers appropriately Results Labs 11/10/24 07:56 11/10/24 07:56 Assessment and Plan (1) Pre-op evaluation: Status: Acute Plan Pt is an 84-year-old female with a PMH significant for Parkinson's, MDD, and OCD [facility] with hospitalist consult for ECT risk stratification. ECT risk stratification No significant contradictory PMH Has undergone ECT many times in the past without complications, most recently one week ago on 11/03/2024 No prior difficulties with anesthesia EKG without prolonged QT or ischemic changes RCRI 0 points Based on history and exam there are no contraindications to the planned procedure No additional workup or treatment indicated at this time Thank you for allowing us to participate in the care of this patient. Signing off at this time. Please re-consult if any acute complaints or issues arise.
[2024-11-10] MEDS: Venlafaxine HCl ER 150 MG CAP.ER.24H PO (08:31)
[2024-11-10] MEDS: Aspirin Enteric Coated 81 MG TABLET.DR PO (08:31)
[2024-11-10] MEDS: ARIPiprazole 5 MG TABLET PO (08:31)
[2024-11-10 09:04] LABS: MANUAL DIFF FLAG NO
[2024-11-10 09:07] LABS: Basophils Percent Auto 0.3 % (0-2); Eosinophils Absolute Auto 0.1 X10*3/uL (0.0-0.4); Eosinophils Percent Auto 0.6 % (0-4); Hematocrit 44.8 % (37.0-47.0); Hemoglobin 15.9 g/dl (12.0-16.0); Imm Gran Abs Auto 0.03 X10*3/uL (0.00-0.03); Imm Gran Pct Auto 0.3 % (0.0-0.4); Lymphocytes Absolute Auto 2.5 X10*3/uL (1.2-4.9); Lymphocytes Percent Auto 27.7 % (20-40); Mean Corpuscular HGB Conc 35.5 g/dl (31.0-35.0); Mean Corpuscular Hemoglobin 30.9 pg (27.0-33.0); Mean Corpuscular Volume 87.2 fL (80.0-98.0); Mean Platelet Volume 10.7 fL (9.4-12.3); Monocytes Absolute Auto 0.7 X10*3/uL (0.1-1.2); Neutrophils Absolute Auto 5.6 x10*3/uL (2.0-8.3); Neutrophils Percent Auto 63.1 % (45-73); Platelet Count 240 X10*3/uL (160-400); Red Blood Count 5.14 X10*6/uL (4.20-5.50); Red Cell Distribution Width 13.2 % (11.0-16.0); White Blood Count 8.9 X10*3/uL (4.8-10.8)
[2024-11-10 09:24] LABS: Estimated Average Glucose 111 mg/dL; Hemoglobin A1C 153.4122 umol/L; Hemoglobin A1c % 5.5 % (<6.0); Total Hemoglobin (HGBA1C) 4176.6564 umol/L
[2024-11-10 09:36] LABS: Alanine Aminotransferase 16 U/L (0-31); Albumin Level 4.2 g/dL (3.5-5.0); Alkaline Phosphatase 69 U/L (39-117); Anion Gap 13 (12-20); Aspartate Amino Transferase 25 U/L (5-31); Bilirubin Total 0.8 mg/dL (0.0-1.0); Blood Urea Nitrogen 16 mg/dL (9-16); Calcium 9.3 mg/dL (8.4-10.2); Carbon Dioxide 25 mmol/L (22-29); Chloride 101 mmol/L (96-108); Cholesterol 264 mg/dL (<200); Estimated Glomerular Filt Rate > 60; Glucose Random 87 mg/dL (60-115); HDL Cholesterol 98 mg/dL (>40); LDL Cholesterol Calculated 154 mg/dL (<100); Sodium 135 mmol/L (135-145); Total Protein 6.4 g/dL (6.5-8.0); Triglycerides 64 mg/dL (<150)
[2024-11-10 09:53] LABS: TSH reflex Free T4 2.75 uIU/mL (0.32-4.0)
[2024-11-10 09:59] LABS: Folate 9.3 ng/mL (> or = 4.0); Vitamin B12 567 pg/mL (200-900)
[2024-11-10] MEDS: LORazepam 0.5 MG TABLET PO (12:20)
--- NOTE | 2024-11-10 13:29 | HO.PSYADMNOT ---
HPI Date of Service: 11/10/24 Chief Complaint: severe depression psychosis si Sources of Information: patient interviewed, chart reviewed and crisis/core team assessment reviewed HPI Subjective Notes: Conditional Voluntary Narrative: The patient is an 84-year-old female referred from the emergency room she had brought in by family due to worsening depression thoughts of suicide and increasing psychosis. She had recently reportedly been diagnosed with Parkinson's by Dr. Hensley and this had the stabilized her. 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 The patient has been on Effexor 150 mg Abilify 5 mg daily which can also cause parkinsonian type symptoms. The patient has had worsening cognitive and there is a history of significant delusional depression that in the past usually required a course of ECT impairment question of vascular dementia. She has had a number of stressors including her her no longer being able to live in independent living at [facility] [place] and her is now in a memory care unit and she is also move to assisted living. Patient over the past 1-2 weeks has been increasingly having guilty ruminations regarding the past Memantine 7 mg had recently been started Past Psychiatric History: Last hospitalization was in the fall of [address] [facility] had a course of ECT History of psychiatric hospitalizations history of ECT including maintenance ECT in the past in [place] PATIENT HAS FAILED TRIALS OF FLUOXETINE SERTRALINE AMITRIPTYLINE WELLBUTRIN Medical Evaluation Reviewed: Yes Some degree of hypertension noted no other acute findings [facility] Medical History OCD (obsessive compulsive disorder) Major depressive disorder, recurrent severe without psychotic features S/P ECT (electroconvulsive therapy) Narrative: Questionable history of vascular dementia questionable Parkinson's significant hypertensive history Surgical History No history of previous surgery Family History: GF DEPRESSION SUICIDE Social History: Patient is retired lives with her and Acworth. 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 Substance History: none Trauma History: none Diagnostics Vital Signs (24Hr): Vital Signs - 24 hr 11/09/24 14:56 11/09/24 15:38 11/09/24 20:00 Temperature 98.3 F 98.2 F 97.2 F Pulse Rate 85 98 90 Respiratory Rate 20 15 17 Blood Pressure 163/84 H 177/88 H 176/84 H Pulse Oximetry 96 95 94 Oxygen Delivery Method Room Air Room Air Room Air 11/10/24 08:00 Temperature 98.1 F Pulse Rate 85 Respiratory Rate 16 Blood Pressure 160/86 H Pulse Oximetry 95 Oxygen Delivery Method Room Air BMI result Body Mass Index 22.4 Labs 11/10/24 07:56 11/10/24 07:56 Labs: Laboratory Results - last 48 hr 11/08/24 11/08/24 11/10/24 19:58 21:01 07:56 WBC 9.6 8.9 RBC 4.65 5.14 Hgb 14.2 15.9 Hct 41.4 44.8 MCV 89.0 87.2 MCH 30.5 30.9 MCHC 34.3 35.5 H RDW 13.6 13.2 Plt Count 229 240 MPV 10.1 10.7 Immature Gran % (Auto) 0.2 0.3 Neut % (Auto) 64.3 63.1 Lymph % (Auto) 25.6 27.7 Leslie % (Auto) 8.8 8.0 Eos % (Auto) 0.6 0.6 Baso % (Auto) 0.5 0.3 Lymph # (Auto) 2.5 2.5 Leslie # (Auto) 0.9 0.7 Eos # (Auto) 0.1 0.1 Baso # (Auto) 0.1 0.0 Abs Immat Gran (auto) 0.02 0.03 Absolute Neuts (auto) 6.2 5.6 Absolute Nucleated RBC 0.000 0.000 Nucleated RBC % (auto) 0.0 0.0 Sodium 135 135 Potassium 4.4 4.0 Chloride 99 101 Carbon Dioxide 27 25 Anion Gap 13 13 BUN 19 H 16 Creatinine 0.92 0.78 Estim Creat Clear Calc 38.9 46.0 Estimated GFR 58 > 60 Random Glucose 122 H 87 Estimat Average Glucose 111 Hemoglobin A1c % 5.5 Calcium 9.4 9.3 Magnesium 2.1 Total Bilirubin 0.4 0.8 Direct Bilirubin 0.1 AST 24 25 ALT 26 16 Alkaline Phosphatase 82 69 Total Protein 6.6 6.4 L Albumin 4.3 4.2 Triglycerides 64 Cholesterol 264 H LDL Cholesterol, Calc 154 H HDL Cholesterol 98 Vitamin B12 567 Folate 9.3 TSH 2.75 Urine Color Yellow Urine Appearance Clear Urine pH 5.5 Ur Specific [place] 1.020 Urine Protein Negative Urine Glucose (UA) Negative Urine Ketones Trace Urine Blood Negative Urine Nitrite Negative Ur Leukocyte Esterase Moderate (2+) H Urine RBC 0-2 Urine WBC 21-50 H Ur Squamous Epith Cells 3-5 Urine Bacteria None Seen Hyaline Casts 0-2 Urine Opiates Screen Not Detected Ur Buprenorphine Scrn Not Detected Ur Oxycodone Screen Not Detected Urine Methadone Screen Not Detected Urine Fentanyl Screen Not Detected Ur Barbiturates Screen Not Detected Ur Phencyclidine Scrn Not Detected Ur Amphetamines Screen Not Detected U Benzodiazepines Scrn Not Detected Urine Cocaine Screen Not Detected U Marijuana (THC) Screen Not Detected Ethyl Alcohol < 10 Meds/Allergies Meds Home Medications ?Medication ?Instructions ?Recorded ?Confirmed ?Type acetaminophen 500 mg tablet 500 mg PO TID PRN pain 11/09/24 11/09/24 History (Acetaminophen Extra Strength) docusate sodium 100 mg capsule 100 mg PO BEDTIME constipation 11/09/24 11/09/24 History (Colace) memantine 7 mg capsule 7 mg PO DAILY 11/09/24 11/09/24 History sprinkle,extended release 24hr sennosides 8.6 mg tablet (senna) 8.6 mg PO BEDTIME 11/09/24 11/09/24 History trazodone 50 mg tablet 50 mg PO BEDTIME 11/09/24 11/09/24 History Allergies Allergies Allergy/AdvReac Type Severity Reaction Status Date / Time No Known Allergies Allergy Verified 11/08/24 19:51 [No Known Allergies*] Mental Status Exam Mental Status Exam Narrative: Appearance: wearing hospital gown, has a stair Behavior: cooperative Psychomotor: Retardation noted Speech: clear, slow low volume TP: linear thought blocking poverty of content TC: Anxiety focused on delusional material delusional guilt related to past thinking the nurses were actors Mood: Anxious depressed Affect: Constrict SI: Thoughts better off and perhaps deserving to be denies plan or intent HI: none VH/AH: Difficult to elaborate Delusions: none Insight/judgment: Impaired Memory/cog: alert, oriented x 4. Assessment & Plan Assessment & Plan (1) Major depressive disorder, recurrent, severe with psychotic features: Status: Acute Code(s): F33.3 - Major depressive disorder, recurrent, severe with psychotic symptoms (2) Dementia, vascular: Status: Acute Code(s): F01.50 - Vascular dementia, unspecified severity, without behavioral disturbance, psychotic disturbance, mood disturbance, and anxiety (3) Parkinsonism: Status: Acute Code(s): G20.C - Parkinsonism, unspecified Plan Patient seen case also reviewed with and her daughter who is visiting from [place]. Patient has severe recurrent depression with multiple marked recent losses over the past year and worsening cognition. Slowed mentation depressed mood delusional guilt and paranoia concerns that she was given ketamine and somehow the nurses are actors on the other hand she is alert knows year month place president executive functioning impaired denies acute suicidality. Patient will get medical eval pre ECT and will most likely need a course of treatment will try to use ultra brief stimulation Monitor for any active suicidality consider change Abilify Patient educated on: diagnosis, medication risk/benefits, ECT and medical condition Guardian/Caregiver educated on: diagnosis, medication risk/benefits and ECT Informed Consent: further education needed Reason for continued inpatient stay Substantial Risk for: harm to self, inability to function and rapid decompensation Statement Statement: I have reviewed the history and physical and performed a pertinent examination on my patient. No changes have occurred unless specified. If the History and Physical was not performed prior to admission, the Hospitalist's service will be consulted for completing the admission physical. Time Spent With Patient Time: Total time managing care of this patient today ____ minutes.
[2024-11-10 14:58] VITALS: BP 141/65
[2024-11-10] MEDS: amLODIPine Besylate 2.5 MG TABLET PO (14:58)
[2024-11-10 20:00] VITALS: BP 119/58; PULSE 85; RESP 16; TEMP 36.2; O2SAT 96
[2024-11-10] MEDS: traZODone HCL 50 MG TABLET PO (20:38)
[2024-11-10] MEDS: Docusate Sodium 100 MG CAPSULE PO (20:38)
[2024-11-10] MEDS: Sennosides 8.6 MG TABLET PO (20:38)
[2024-11-11 08:00] VITALS: BP 123/58; PULSE 86; RESP 16; O2SAT 98
[2024-11-11] MEDS: Aspirin Enteric Coated 81 MG TABLET.DR PO (08:57)
[2024-11-11] MEDS: Venlafaxine HCl ER 150 MG CAP.ER.24H PO (08:58)
[2024-11-11] MEDS: amLODIPine Besylate 2.5 MG TABLET PO (08:58)
[2024-11-11] MEDS: ARIPiprazole 5 MG TABLET PO (08:58)
[2024-11-11 20:00] VITALS: BP 122/57; PULSE 87; RESP 18; TEMP 36.6; O2SAT 94
[2024-11-11] MEDS: Sennosides 8.6 MG TABLET PO (20:50)
[2024-11-11] MEDS: Docusate Sodium 100 MG CAPSULE PO (20:50)
[2024-11-11] MEDS: traZODone HCL 50 MG TABLET PO (20:50)
[2024-11-12 08:00] VITALS: BP 143/69; PULSE 67; RESP 14; TEMP 36.5; O2SAT 95
[2024-11-12] MEDS: Venlafaxine HCl ER 150 MG CAP.ER.24H PO (09:07)
[2024-11-12] MEDS: amLODIPine Besylate 2.5 MG TABLET PO (09:07)
[2024-11-12] MEDS: ARIPiprazole 5 MG TABLET PO (09:07)
[2024-11-12] MEDS: Aspirin Enteric Coated 81 MG TABLET.DR PO (09:07)
--- NOTE | 2024-11-12 15:48 | PC.NURSE ---
While talking with Maribell she expressed to this senior grant writer she was feeling very anxious when I asked why she wouldn't say ll I could get her to admit to was that it was from something that had happened
--- NOTE | 2024-11-12 17:51 | P.PNPSI_ITS ---
Subjective Subjective Date of Service: 11/12/24 Reason For Visit: severe depression psychosis si Interim History: Late entry note for patient seen on 11/11; discussed with team discussed ECT; pt willing to have; no questions. Says in past in worked at least once but not sure if it worked 3rd or 4th time. Mental Status Exam Mental Status Exam Narrative: Appearance: wearing hospital gown, lying in bed Behavior: cooperative Psychomotor: Retardation noted Speech: clear, slow low volume TP: linear thought blocking poverty of content TC: Anxiety focused on delusional material delusional guilt related to past thinking the nurses were actors Mood: Anxious depressed Affect: Constrict SI: Thoughts better off and perhaps deserving to be denies plan or intent HI: none VH/AH: Difficult to elaborate Delusions: none Insight/judgment: Impaired Memory/cog: alert, oriented x 4. Diagnostics Vital Signs (24Hr): Vital Signs - 24 hr 11/11/24 20:00 11/12/24 08:00 Temperature 97.9 F 97.7 F Pulse Rate 87 67 Respiratory Rate 18 14 Blood Pressure 122/57 L 143/69 H Pulse Oximetry 94 95 Oxygen Delivery Method Room Air Room Air BMI result Body Mass Index 22.4 Labs 11/10/24 07:56 11/10/24 07:56 Medications Medications Current Medications Acetaminophen (Acetaminophen 325 Mg Tablet) 650 mg PO TID PRN PRN Reason: pain Acetaminophen (Acetaminophen 325 Mg Tablet) 650 mg PO Q6H PRN PRN Reason: Headache/Pain, Scale 1-10 Al Hydroxide/Mg Hydroxide (Magnesium Hydrox/Alum Hydrox 30 Ml Oral.Susp) 30 ml PO Q6H PRN PRN Reason: Heartburn/Nausea Amlodipine Besylate (Amlodipine Besylate 2.5 Mg Tablet) 2.5 mg PO DAILY [facility]; Protocol Last Admin: 11/12/24 09:07 Dose: 2.5 mg Aripiprazole (Aripiprazole 5 Mg Tablet) 5 mg PO DAILY [facility] Last Admin: 11/12/24 09:07 Dose: 5 mg Aspirin (Aspirin Enteric Coated 81 Mg Tablet.) 81 mg PO DAILY [facility] Last Admin: 11/12/24 09:07 Dose: 81 mg Docusate Sodium (Docusate Sodium 100 Mg Capsule) 100 mg PO BEDTIME [facility] Last Admin: 11/11/24 20:50 Dose: 100 mg Magnesium Hydroxide (Milk Of Magnesia 30 Ml Oral.Susp) 30 ml PO DAILY PRN PRN Reason: Constipation Senna (Sennosides 8.6 Mg Tablet) 8.6 mg PO BEDTIME [facility] Last Admin: 11/11/24 20:50 Dose: 8.6 mg Trazodone HCl (Trazodone Hcl 50 Mg Tablet) 50 mg PO BEDTIME MRX1 PRN PRN Reason: Insomnia Last Admin: 11/11/24 20:50 Dose: 50 mg Venlafaxine HCl (Venlafaxine Hcl Er 150 Mg Cap.Er.24h) 150 mg PO DAILY [facility] Last Admin: 11/12/24 09:07 Dose: 150 mg Allergies Allergies Allergy/AdvReac Type Severity Reaction Status Date / Time No Known Allergies Allergy Verified 11/08/24 19:51 [No Known Allergies*] Assessment & Plan Assessment & Plan (1) Major depressive disorder, recurrent severe without psychotic features: Status: Acute Code(s): F33.2 - Major depressive disorder, recurrent severe without psychotic features (2) OCD (obsessive compulsive disorder): Qualifiers: Obsessive-compulsive disorder type: unspecified Qualified Code(s): F 42.9 - Obsessive-compulsive disorder, unspecified Status: Acute Code(s): F42.9 - Obsessive-compulsive disorder, unspecified (3) Dementia, vascular: Status: Acute Code(s): F01.50 - Vascular dementia, unspecified severity, without behavioral disturbance, psychotic disturbance, mood disturbance, and anxiety Plan The patient is a middle-aged female with a past history of major depressive disorder who historically did very well on ECT and she was receiving ECT maintenance. She recently relapsed in her depressive symptoms and needed to be admitted for treatment due to suicidal ideation. 11/11 remains depressed; agrees with plan for ECT; says ECT has helped in the past but was not sure if subsequent ECT trials were effective Plan 1. The patient is able to contract for safety so we are going to place her on 15 minute checks. 2. Follow-up with orthopedic team. 3. Referral for ECT ECT restarted, the patient improved after the 1st treatment. 4. Continue with same antidepressants. Patient educated on: diagnosis and ECT Informed Consent: understands Reason for continued inpatient stay Substantial Risk for: inability to function Time Spent With Patient Time: Total time managing care of this patient today ____ minutes.
--- NOTE | 2024-11-12 17:53 | HO.PSYCHPN ---
Subjective Subjective Date of Service: 11/12/24 Reason For Visit: severe depression psychosis si Interim History: Met with patient; discussed with team no change in presentation; lying in bed; dsays ready for ECT Mental Status Exam Mental Status Exam Narrative: Appearance: wearing hospital gown, lying in bed Behavior: cooperative Psychomotor: Retardation noted Speech: clear, slow low volume TP: linear thought blocking poverty of content TC: Anxiety focused on delusional material delusional guilt related to past thinking the nurses were actors Mood: Anxious depressed Affect: Constrict SI: Thoughts better off and perhaps deserving to be denies plan or intent HI: none VH/AH: Difficult to elaborate Delusions: none Insight/judgment: Impaired Memory/cog: alert, oriented x 4. Diagnostics Vital Signs (24Hr): Vital Signs - 24 hr 11/11/24 20:00 11/12/24 08:00 Temperature 97.9 F 97.7 F Pulse Rate 87 67 Respiratory Rate 18 14 Blood Pressure 122/57 L 143/69 H Pulse Oximetry 94 95 Oxygen Delivery Method Room Air Room Air BMI result Body Mass Index 22.4 Labs 11/10/24 07:56 11/10/24 07:56 Medications Medications Current Medications Acetaminophen (Acetaminophen 325 Mg Tablet) 650 mg PO TID PRN PRN Reason: pain Acetaminophen (Acetaminophen 325 Mg Tablet) 650 mg PO Q6H PRN PRN Reason: Headache/Pain, Scale 1-10 Al Hydroxide/Mg Hydroxide (Magnesium Hydrox/Alum Hydrox 30 Ml Oral.Susp) 30 ml PO Q6H PRN PRN Reason: Heartburn/Nausea Amlodipine Besylate (Amlodipine Besylate 2.5 Mg Tablet) 2.5 mg PO DAILY [facility]; Protocol Last Admin: 11/12/24 09:07 Dose: 2.5 mg Aripiprazole (Aripiprazole 5 Mg Tablet) 5 mg PO DAILY [facility] Last Admin: 11/12/24 09:07 Dose: 5 mg Aspirin (Aspirin Enteric Coated 81 Mg Tablet.Dr) 81 mg PO DAILY [facility] Last Admin: 11/12/24 09:07 Dose: 81 mg Docusate Sodium (Docusate Sodium 100 Mg Capsule) 100 mg PO BEDTIME [facility] Last Admin: 11/11/24 20:50 Dose: 100 mg Magnesium Hydroxide (Milk Of Magnesia 30 Ml Oral.Susp) 30 ml PO DAILY PRN PRN Reason: Constipation Senna (Sennosides 8.6 Mg Tablet) 8.6 mg PO BEDTIME [facility] Last Admin: 11/11/24 20:50 Dose: 8.6 mg Trazodone HCl (Trazodone Hcl 50 Mg Tablet) 50 mg PO BEDTIME MRX1 PRN PRN Reason: Insomnia Last Admin: 11/11/24 20:50 Dose: 50 mg Venlafaxine HCl (Venlafaxine Hcl Er 150 Mg Cap.Er.24h) 150 mg PO DAILY [facility] Last Admin: 11/12/24 09:07 Dose: 150 mg Allergies Allergies Allergy/AdvReac Type Severity Reaction Status Date / Time No Known Allergies Allergy Verified 11/08/24 19:51 [No Known Allergies*] Assessment & Plan Assessment & Plan (1) Major depressive disorder, recurrent severe without psychotic features: Status: Acute Code(s): F33.2 - Major depressive disorder, recurrent severe without psychotic features (2) OCD (obsessive compulsive disorder): Qualifiers: Obsessive-compulsive disorder type: unspecified Qualified Code(s): F42.9 - Obsessive-compulsive disorder, unspecified Status: Acute Code(s): F42.9 - Obsessive-compulsive disorder, unspecified (3) Dementia, vascular: Status: Acute Code(s): F01.50 - Vascular dementia, unspecified severity, without behavioral disturbance, psychotic disturbance, mood disturbance, and anxiety Plan The patient is a middle-aged female with a past history of major depressive disorder who historically did very well on ECT and she was receiving ECT maintenance. She recently relapsed in her depressive symptoms and needed to be admitted for treatment due to suicidal ideation. 11/11 remains depressed; agrees with plan for ECT; says ECT has helped in the past but was not sure if subsequent ECT trials were effective Plan 1. The patient is able to contract for safety so we are going to place her on 15 minute checks. 2. Follow-up with orthopedic team. 3. Referral for ECT ECT restarted, the patient improved after the 1st treatment. 4. Continue with same antidepressants. Patient educated on: diagnosis and ECT Informed Consent: understands Reason for continued inpatient stay Substantial Risk for: inability to function Time Spent With Patient Time: Total time managing care of this patient today ____ minutes.
[2024-11-12 20:00] VITALS: BP 166/79; PULSE 83; RESP 16; TEMP 36.8; O2SAT 95
[2024-11-12] MEDS: traZODone HCL 50 MG TABLET PO (20:58)
[2024-11-12] MEDS: Sennosides 8.6 MG TABLET PO (20:58)
[2024-11-12] MEDS: Docusate Sodium 100 MG CAPSULE PO (20:58)
[2024-11-13] VITALS (12 sets, daily range): BP systolic 115–156; BP diastolic 56–81; PULSE 70–93; RESP 12–20; TEMP 36.1–36.8; O2SAT 94–98
[2024-11-13] MEDS: Lactated Ringers 1,000 ML 100 ML IVCONT (06:41)
--- NOTE | 2024-11-13 07:15 | MHC.SHP ---
Pre-Procedural Eval Section A - 24 Hr Update-Section A only Date of Service: 11/13/24 Changes since office visit: Yes Cold of Flu in the past 2 weeks, Yes New Medical Problems, Yes Changes in Medication and Yes Patient answered all questions The patient has been examined within 24 hours of the surgical procedure. The History & Physical has been completed within 30 days and I have reviewed it.: Yes Section B - Complete if H&P > 30 days Chief Complaint: severe depression psychosis si Allergies: Allergies Allergy/AdvReac Type Severity Reaction Status Date / Time No Known Allergies Allergy Verified 11/08/24 19:51 [No Known Allergies*] Plan I have reviewed the history and physical and performed a pertinent physical examination on my patient. No changes have occurred unless specified. Time Spent With Patient Time: Total time managing care of this patient today ____ minutes.
--- NOTE | 2024-11-13 07:31 | HO.ECTPROC ---
ECT Procedure Note Diagnosis/Treatment Date of Service: 11/13/24 Diagnosis: Major Depressive Disorder Current Treatment Number: 2 Treatment: Series Interval Clinical Notes: Patient admitted to the inpatient geriatric psychiatry unit. The patient has recurrence of psychotic depression with paranoia and delusional guilt. Avoiding bilateral treatment because of dementia/cognitive impairment over the past 6 months +. Patient did have recent MRI was supposed to follow-up with Dr. Hensley. ECT completed unilateral given propofol at 55 seconds. Patient treated with ultra brief protocol Time: Total time managing care of this patient today __35__ minutes. ECT Settings Device: THYMATRON DGx Electrode Placement: Right Unilateral Program/Pulse Width: 0.25 Energy Percent: 10 Seizure Duration By EEG (in seconds): 70 Medications Administration General Anesthetic: Etomidate (14) Muscle Relaxant: Succinylcholine (80) Ancillary Medications Miscillaneous Medications: Propofol (30 to end sz) Treatment Recommendations No Changes Recommended: No change
[2024-11-13] MEDS: amLODIPine Besylate 2.5 MG TABLET PO (09:02)
[2024-11-13] MEDS: ARIPiprazole 5 MG TABLET PO (09:02)
[2024-11-13] MEDS: Aspirin Enteric Coated 81 MG TABLET.DR PO (09:03)
[2024-11-13] MEDS: Venlafaxine HCl ER 150 MG CAP.ER.24H PO (09:03)
--- NOTE | 2024-11-13 09:26 | PC.NURSE ---
Patient was back from ECT at 8:55 am. Alert, oriented x4, some dizziness, lightheadedness. Denied headache, denied N/V. Offered breakfast, consumed 100%, drank fluids. After breakfast assisted to her bed. Encouraged to avoid sudden movements. Will continue to monitor.
[2024-11-13] MEDS: LORazepam 0.5 MG TABLET PO (13:05)
--- NOTE | 2024-11-13 15:39 | P.PNPSI_ITS ---
Subjective Subjective Date of Service: 11/13/24 Reason For Visit: severe depression psychosis si Interim History: c/o anxiety. asking for ativan, which is ordered PRN. slowed. Mental Status Exam Mental Status Exam Narrative: Appearance: wearing hospital gown Behavior: cooperative Psychomotor: Retardation noted Speech: clear, slow low volume TP: linear thought blocking poverty of content TC: Anxiety Mood: Anxious depressed Affect: Constricted SI: none expressed HI: none expressed VH/AH: none expressed Delusions: none expressed Insight/judgment: Impaired Memory/cog: alert, oriented x 4. Diagnostics Vital Signs (24Hr): Vital Signs - 24 hr 11/12/24 20:00 11/13/24 05:34 11/13/24 06:41 Temperature 98.2 F 97.9 F 97 F Pulse Rate 83 93 80 Respiratory Rate 16 16 12 Blood Pressure 166/79 H 139/79 151/80 H Pulse Oximetry 95 98 94 Oxygen Delivery Method Room Air Room Air Oxygen Flow Rate 11/13/24 07:36 11/13/24 07:40 11/13/24 07:45 Temperature 98.2 F Pulse Rate 82 75 72 Respiratory Rate 20 20 15 Blood Pressure 156/81 H 128/66 132/71 Pulse Oximetry 96 96 98 Oxygen Delivery Method Nasal Cannula with ETCO2 Nasal Cannula with ETCO2 Nasal Cannula with ETCO2 Oxygen Flow Rate 4 4 4 11/13/24 07:50 11/13/24 08:00 11/13/24 08:15 Temperature Pulse Rate 74 70 82 Respiratory Rate 15 16 16 Blood Pressure 136/66 137/66 133/67 Pulse Oximetry 98 98 98 Oxygen Delivery Method Nasal Cannula with ETCO2 Nasal Cannula with ETCO2 Nasal Cannula with ETCO2 Oxygen Flow Rate 4 4 4 11/13/24 08:30 11/13/24 08:55 11/13/24 09:02 Temperature 98.2 F 97.9 F Pulse Rate 82 79 Respiratory Rate 16 16 Blood Pressure 147/69 H 138/67 138/67 Pulse Oximetry 96 95 Oxygen Delivery Method Room Air Room Air Oxygen Flow Rate BMI result Body Mass Index 22.4 Labs 11/10/24 07:56 11/10/24 07:56 Medications Medications Current Medications Acetaminophen (Acetaminophen 325 Mg Tablet) 650 mg PO TID PRN PRN Reason: pain Acetaminophen (Acetaminophen 325 Mg Tablet) 650 mg PO Q6H PRN PRN Reason: Headache/Pain, Scale 1-10 Al Hydroxide/Mg Hydroxide (Magnesium Hydrox/Alum Hydrox 30 Ml Oral.Susp) 30 ml PO Q6H PRN PRN Reason: Heartburn/Nausea Amlodipine Besylate (Amlodipine Besylate 2.5 Mg Tablet) 2.5 mg PO DAILY [facility]; Protocol Last Admin: 11/13/24 09:02 Dose: 2.5 mg Aripiprazole (Aripiprazole 5 Mg Tablet) 5 mg PO DAILY [facility] Last Admin: 11/13/24 09:02 Dose: 5 mg Aspirin (Aspirin Enteric Coated 81 Mg Tablet.Dr) 81 mg PO DAILY [facility] Last Admin: 11/13/24 09:03 Dose: 81 mg Docusate Sodium (Docusate Sodium 100 Mg Capsule) 100 mg PO BEDTIME [facility] Last Admin: 11/12/24 20:58 Dose: 100 mg Lactated Ringer's (Lr) 1,000 mls @ 100 mls/hr IVCONT .Q10H [facility] Last Admin: 11/13/24 06:41 Dose: 100 mls/hr Lorazepam (Lorazepam 0.5 Mg Tablet) 0.5 mg PO Q4H PRN PRN Reason: Anxiety Last Admin: 11/13/24 13:05 Dose: 0.5 mg Magnesium Hydroxide (Milk Of Magnesia 30 Ml Oral.Susp) 30 ml PO DAILY PRN PRN Reason: Constipation Naloxone HCl (Naloxone Hcl 0.4 Mg/Ml Vial) 0.04 mg IVPUSH Q5M PRN PRN Reason: Excessive sedation or RR < 8 Senna (Sennosides 8.6 Mg Tablet) 8.6 mg PO BEDTIME [facility] Last Admin: 11/12/24 20:58 Dose: 8.6 mg Trazodone HCl (Trazodone Hcl 50 Mg Tablet) 50 mg PO BEDTIME MRX1 PRN PRN Reason: Insomnia Last Admin: 11/12/24 20:58 Dose: 50 mg Venlafaxine HCl (Venlafaxine Hcl Er 150 Mg Cap.Er.24h) 150 mg PO DAILY [facility] Last Admin: 11/13/24 09:03 Dose: 150 mg Allergies Allergies Allergy/AdvReac Type Severity Reaction Status Date / Time No Known Allergies Allergy Verified 11/08/24 19:51 [No Known Allergies*] Assessment & Plan Assessment & Plan (1) Major depressive disorder, recurrent severe without psychotic features: Status: Acute Code(s): F33.2 - Major depressive disorder, recurrent severe without psychotic features (2) OCD (obsessive compulsive disorder): Qualifiers: Obsessive-compulsive disorder type: unspecified Qualified Code(s): F 42.9 - Obsessive-compulsive disorder, unspecified Status: Acute Code(s): F42.9 - Obsessive-compulsive disorder, unspecified (3) Dementia, vascular: Status: Acute Code(s): F01.50 - Vascular dementia, unspecified severity, without behavioral disturbance, psychotic disturbance, mood disturbance, and anxiety Plan The patient is a middle-aged female with a past history of major depressive disorder who historically did very well on ECT and she was receiving ECT maintenance. She recently relapsed in her depressive symptoms and needed to be admitted for treatment due to suicidal ideation. 11/11 remains depressed; agrees with plan for ECT; says ECT has helped in the past but was not sure if subsequent ECT trials were effective 11/13: c/o anxiety, ativan 0.5 PRN ordered. otherwise continue current mgmt. PMR. Plan 1. The patient is able to contract for safety so we are going to place her on 15 minute checks. 2. Follow-up with orthopedic team. 3. Referral for ECT ECT restarted, the patient improved after the 1st treatment. 4. Continue with same antidepressants. Reason for continued inpatient stay Substantial Risk for: inability to function Time Spent With Patient Time: Total time managing care of this patient today ____ minutes.
[2024-11-13] MEDS: traZODone HCL 50 MG TABLET PO (20:28)
[2024-11-13] MEDS: Sennosides 8.6 MG TABLET PO (20:28)
[2024-11-13] MEDS: Docusate Sodium 100 MG CAPSULE PO (20:28)
[2024-11-13] MEDS: OLANZapine 2.5 MG TABLET PO (21:06)
[2024-11-14 08:00] VITALS: BP 118/58; PULSE 90; RESP 15; TEMP 36.6; O2SAT 94
[2024-11-14] MEDS: Venlafaxine HCl ER 150 MG CAP.ER.24H PO (08:27)
[2024-11-14] MEDS: Aspirin Enteric Coated 81 MG TABLET.DR PO (08:27)
[2024-11-14] MEDS: ARIPiprazole 5 MG TABLET PO (08:27)
[2024-11-14] MEDS: amLODIPine Besylate 2.5 MG TABLET PO (08:27)
--- NOTE | 2024-11-14 11:12 | PM.NEUROCN ---
History of Present Illness Data of Consult Service Date: 11/14/24 Primary Care Provider: Shasta Shell MD [facility] Reason for consult: ? Parkinsonism drug induced vs PD This is a 84 years old right-handed woman recently evaluated by Dr. Hensley, with past medical history of major depression without psychotic features, S/P ECT treatments, obsessive-compulsive disorder for forgetfulness and was found to have some Parkinsonian features but Dr. Hensley did not notice any tremor. She is originally from [place] with a PhD degree in psychology.? She has moved to this area to live close to her son who lives in [facility].? Her suffered from dementia and was in a memory unit. ? She was having difficulty brushing her teeth and has become slow in her movements. She denied any difficulty with sleep or shouting or kicking during sleep.? Memory difficulty has been noted for a few years.? She had a recent MRI which I have reviewed which shows central > cortical atrophy with mild to moderate ventriculomegaly, extensive confluent white matter microvascular disease especially in a periventricular distribtion. [facility] Past Medical History Medical History OCD (obsessive compulsive disorder) Major depressive disorder, recurrent severe without psychotic features S/P ECT (electroconvulsive therapy) Family History Family History Mother CHF (congestive heart failure) Surgical History Surgical History No history of previous surgery Social History Social History Household Members: None Housing: Apartment Housing Other:: Detention community Do you presently have visiting nurse or other home services: Yes ([employer] [facility]) Patient Tobacco Use Status: Never used Tobacco Use of substances other than those prescribed or required for medical reasons: No Currently Displaying Signs/Symptoms of Drug Intoxication Withdrawal: No Any prior treatment program specific to substance use: No Have you been hit, kicked, punched, or otherwise hurt by someone within the past year? If so, by whom?: No Do you feel safe in your current relationship?: Yes Is there a partner from a previous relationship who is making you feel unsafe now?: No Are you made to feel afraid or neglected: No Advance Directives: No Advance Directives Information Provided: Yes Do you have thoughts of harming others: None Do you have a plan to hurt others: No Plan Recently lost weight without trying: No How much weight loss: Not applicable Eating poorly because of decreased appetite: No Nutrition screen score: 0 Nutrition Risks: No Nutritional Risk Patient : No : No Poor oral hygiene: Yes (I brush, but not very well. ) service: No Sexual orientation: Straight/Heterosexual Meds Allergies Allergy/AdvReac Type Severity Reaction Status Date / Time No Known Allergies Allergy Verified 11/08/24 19:51 [No Known Allergies*] Active Medications: Current Medications Acetaminophen (Acetaminophen 325 Mg Tablet) 650 mg PO TID PRN PRN Reason: pain Acetaminophen (Acetaminophen 325 Mg Tablet) 650 mg PO Q6H PRN PRN Reason: Headache/Pain, Scale 1-10 Al Hydroxide/Mg Hydroxide (Magnesium Hydrox/Alum Hydrox 30 Ml Oral.Susp) 30 ml PO Q6H PRN PRN Reason: Heartburn/Nausea Amlodipine Besylate (Amlodipine Besylate 2.5 Mg Tablet) 2.5 mg PO DAILY [facility]; Protocol Last Admin: 11/14/24 08:27 Dose: 2.5 mg Aripiprazole (Aripiprazole 5 Mg Tablet) 5 mg PO DAILY [facility] Last Admin: 11/14/24 08:27 Dose: 5 mg Aspirin (Aspirin Enteric Coated 81 Mg Tablet.Dr) 81 mg PO DAILY [facility] Last Admin: 11/14/24 08:27 Dose: 81 mg Docusate Sodium (Docusate Sodium 100 Mg Capsule) 100 mg PO BEDTIME [facility] Last Admin: 11/13/24 20:28 Dose: 100 mg Lorazepam (Lorazepam 0.5 Mg Tablet) 0.5 mg PO Q4H PRN PRN Reason: Anxiety Last Admin: 11/13/24 13:05 Dose: 0.5 mg Magnesium Hydroxide (Milk Of Magnesia 30 Ml Oral.Susp) 30 ml PO DAILY PRN PRN Reason: Constipation Olanzapine (Olanzapine 2.5 Mg Tablet) 2.5 mg PO BEDTIME [facility] Last Admin: 11/13/24 21:06 Dose: 2.5 mg Senna (Sennosides 8.6 Mg Tablet) 8.6 mg PO BEDTIME [facility] Last Admin: 11/13/24 20:28 Dose: 8.6 mg Trazodone HCl (Trazodone Hcl 50 Mg Tablet) 50 mg PO BEDTIME MRX1 PRN PRN Reason: Insomnia Last Admin: 11/13/24 20:28 Dose: 50 mg Venlafaxine HCl (Venlafaxine Hcl Er 150 Mg Cap.Er.24h) 150 mg PO DAILY [facility] Last Admin: 11/14/24 08:27 Dose: 150 mg Home Medications ?Medication ?Instructions ?Recorded ?Confirmed ?Last Taken ?Type acetaminophen 500 mg tablet 500 mg PO TID PRN pain 11/09/24 11/09/24 Unknown History (Acetaminophen Extra Strength) docusate sodium 100 mg capsule 100 mg PO BEDTIME constipation 11/09/24 11/09/24 11/07/24 20:00 History (Colace) memantine 7 mg capsule 7 mg PO DAILY 11/09/24 11/09/24 11/08/24 08:00 History sprinkle,extended release 24hr sennosides 8.6 mg tablet (senna) 8.6 mg PO BEDTIME 11/09/24 11/09/24 11/07/24 20:00 History trazodone 50 mg tablet 50 mg PO BEDTIME 11/09/24 11/09/24 Unknown History Physical Exam Vital Signs: Vital Signs: Last Vital Signs Temp 97.9 F 11/14/24 08:00 Pulse 90 11/14/24 08:00 Resp 15 11/14/24 08:00 BP 118/58 L 11/14/24 08:00 Pulse Ox 94 11/14/24 08:00 O2 Del Method Room Air 11/14/24 08:00 O2 Flow Rate 4 11/13/24 08:15 BMI result Body Mass Index 22.4 Neuro: Other: Alert and oriented to person place and partially to time. is visiting her and says that she has intermittent occasional tremor in the finger sof left hand. She has a flat affect and very mild bradylinesia. She walks slowly without shuffling. Muscle tone is normal. She had a few beats of tremors at 8 Hz in the 4th and fifth fingers of left hand. Speech was normal. 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 Recom.: Review the necessity of any anti- dopaminergic drugs and their dosages for her psychiatric needs. OP f/u with Dr. Hensley. Procedures Date of Service Date of Service: 11/14/24
--- NOTE | 2024-11-14 12:57 | HO.PSYCHPN ---
Subjective Subjective Date of Service: 11/14/24 Reason For Visit: severe depression psychosis si Interim History: c/o anxiety, informed of ativan PRNs, of which she seemed unaware. faster responses. reviewed ativan PRN orders with JOSÉ morton. Mental Status Exam Mental Status Exam Narrative: Appearance: wearing hospital gown Behavior: cooperative Psychomotor: Retardation noted Speech: clear, slow low volume TP: linear thought blocking poverty of content TC: Anxiety Mood: Anxious depressed Affect: Constricted SI: none expressed HI: none expressed VH/AH: none expressed Delusions: none expressed Insight/judgment: Impaired Memory/cog: alert, oriented x 4. Diagnostics Vital Signs (24Hr): Vital Signs - 24 hr 11/13/24 20:00 11/14/24 08:00 Temperature 97.8 F 97.9 F Pulse Rate 75 90 Respiratory Rate 16 15 Blood Pressure 115/56 L 118/58 L Pulse Oximetry 97 94 Oxygen Delivery Method Room Air Room Air BMI result Body Mass Index 22.4 Labs 11/10/24 07:56 11/10/24 07:56 Medications Medications Current Medications Acetaminophen (Acetaminophen 325 Mg Tablet) 650 mg PO TID PRN PRN Reason: pain Acetaminophen (Acetaminophen 325 Mg Tablet) 650 mg PO Q6H PRN PRN Reason: Headache/Pain, Scale 1-10 Al Hydroxide/Mg Hydroxide (Magnesium Hydrox/Alum Hydrox 30 Ml Oral.Susp) 30 ml PO Q6H PRN PRN Reason: Heartburn/Nausea Amlodipine Besylate (Amlodipine Besylate 2.5 Mg Tablet) 2.5 mg PO DAILY [facility]; Protocol Last Admin: 11/14/24 08:27 Dose: 2.5 mg Aripiprazole (Aripiprazole 5 Mg Tablet) 5 mg PO DAILY [facility] Last Admin: 11/14/24 08:27 Dose: 5 mg Aspirin (Aspirin Enteric Coated 81 Mg Tablet.Dr) 81 mg PO DAILY [facility] Last Admin: 11/14/24 08:27 Dose: 81 mg Docusate Sodium (Docusate Sodium 100 Mg Capsule) 100 mg PO BEDTIME [facility] Last Admin: 11/13/24 20:28 Dose: 100 mg Lorazepam (Lorazepam 0.5 Mg Tablet) 0.5 mg PO Q4H PRN PRN Reason: Anxiety Last Admin: 11/13/24 13:05 Dose: 0.5 mg Magnesium Hydroxide (Milk Of Magnesia 30 Ml Oral.Susp) 30 ml PO DAILY PRN PRN Reason: Constipation Olanzapine (Olanzapine 2.5 Mg Tablet) 2.5 mg PO BEDTIME [facility] Last Admin: 11/13/24 21:06 Dose: 2.5 mg Senna (Sennosides 8.6 Mg Tablet) 8.6 mg PO BEDTIME [facility] Last Admin: 11/13/24 20:28 Dose: 8.6 mg Trazodone HCl (Trazodone Hcl 50 Mg Tablet) 50 mg PO BEDTIME MRX1 PRN PRN Reason: Insomnia Last Admin: 11/13/24 20:28 Dose: 50 mg Venlafaxine HCl (Venlafaxine Hcl Er 150 Mg Cap.Er.24h) 150 mg PO DAILY [facility] Last Admin: 11/14/24 08:27 Dose: 150 mg Allergies Allergies Allergy/AdvReac Type Severity Reaction Status Date / Time No Known Allergies Allergy Verified 11/08/24 19:51 [No Known Allergies*] Assessment & Plan Assessment & Plan (1) Dementia, vascular: Status: Acute Code(s): F01.50 - Vascular dementia, unspecified severity, without behavioral disturbance, psychotic disturbance, mood disturbance, and anxiety Assessment and Plan: Mild dementia probably related to age and extensive microvascular white matter disease (2) Parkinsonism: Status: Acute Code(s): G20.C - Parkinsonism, unspecified Assessment and Plan: 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 Recom.: Review the necessity of any anti- dopaminergic drugs and their dosages for her psychiatric needs. OP f/u with Dr. Hensley. (3) Major depressive disorder, recurrent severe without psychotic features: Status: Acute Code(s): F33.2 - Major depressive disorder, recurrent severe without psychotic features Plan The patient is a middle-aged female with a past history of major depressive disorder who historically did very well on ECT and she was receiving ECT maintenance. She recently relapsed in her depressive symptoms and needed to be admitted for treatment due to suicidal ideation. 11/11 remains depressed; agrees with plan for ECT; says ECT has helped in the past but was not sure if subsequent ECT trials were effective 11/13: c/o anxiety, ativan 0.5 PRN ordered. otherwise continue current mgmt. PMR. 11/14: slightly more spontaneous today. seen by neuro. continue current mgmt. Plan 1. The patient is able to contract for safety so we are going to place her on 15 minute checks. 2. Follow-up with orthopedic team. 3. Referral for ECT ECT restarted, the patient improved after the 1st treatment. 4. Continue with same antidepressants. Reason for continued inpatient stay Substantial Risk for: inability to function Time Spent With Patient Time: Total time managing care of this patient today ____ minutes.
[2024-11-14 20:00] VITALS: BP 116/66; PULSE 78; TEMP 37; O2SAT 95
[2024-11-14] MEDS: Sennosides 8.6 MG TABLET PO (20:22)
[2024-11-14] MEDS: Docusate Sodium 100 MG CAPSULE PO (20:22)
[2024-11-14] MEDS: OLANZapine 2.5 MG TABLET PO (20:22)
--- NOTE | 2024-11-15 06:24 | PC.NURSE ---
pt refused to go to ECT PACU called dr sutton
--- NOTE | 2024-11-15 08:47 | HO.PSYCHPN ---
Subjective Subjective Date of Service: 11/15/24 Reason For Visit: severe depression psychosis si Subjective Notes: Conditional Voluntary Interim History: Pt severely depressed withdrawn refused ect in am lack of trust paranoid concerns Mental Status Exam Mental Status Exam Narrative: Appearance: wearing hospital gown Behavior: cooperative Psychomotor: Retardation noted Speech: clear, slow low volume TP: linear thought blocking poverty of content TC: Anxiety Mood: Anxious depressed Affect: Constricted SI: none expressed HI: none expressed VH/AH: none expressed Delusions: people playing tricks on her Insight/judgment: Impaired Memory/cog: alert, oriented x 4. Diagnostics Vital Signs (24Hr): Vital Signs - 24 hr 11/14/24 20:00 Temperature 98.6 F Pulse Rate 78 Blood Pressure 116/66 Pulse Oximetry 95 Oxygen Delivery Method Room Air BMI result Body Mass Index 22.4 Labs 11/10/24 07:56 11/10/24 07:56 Medications Medications Current Medications Acetaminophen (Acetaminophen 325 Mg Tablet) 650 mg PO TID PRN PRN Reason: pain Acetaminophen (Acetaminophen 325 Mg Tablet) 650 mg PO Q6H PRN PRN Reason: Headache/Pain, Scale 1-10 Al Hydroxide/Mg Hydroxide (Magnesium Hydrox/Alum Hydrox 30 Ml Oral.Susp) 30 ml PO Q6H PRN PRN Reason: Heartburn/Nausea Amlodipine Besylate (Amlodipine Besylate 2.5 Mg Tablet) 2.5 mg PO DAILY [facility]; Protocol Last Admin: 11/14/24 08:27 Dose: 2.5 mg Aripiprazole (Aripiprazole 5 Mg Tablet) 5 mg PO DAILY [facility] Last Admin: 11/14/24 08:27 Dose: 5 mg Aspirin (Aspirin Enteric Coated 81 Mg Tablet.Dr) 81 mg PO DAILY [facility] Last Admin: 11/14/24 08:27 Dose: 81 mg Docusate Sodium (Docusate Sodium 100 Mg Capsule) 100 mg PO BEDTIME [facility] Last Admin: 11/14/24 20:22 Dose: 100 mg Lorazepam (Lorazepam 0.5 Mg Tablet) 0.5 mg PO Q4H PRN PRN Reason: Anxiety Last Admin: 11/13/24 13:05 Dose: 0.5 mg Magnesium Hydroxide (Milk Of Magnesia 30 Ml Oral.Susp) 30 ml PO DAILY PRN PRN Reason: Constipation Olanzapine (Olanzapine 2.5 Mg Tablet) 2.5 mg PO BEDTIME [facility] Last Admin: 11/14/24 20:22 Dose: 2.5 mg Senna (Sennosides 8.6 Mg Tablet) 8.6 mg PO BEDTIME [facility] Last Admin: 11/14/24 20:22 Dose: 8.6 mg Trazodone HCl (Trazodone Hcl 50 Mg Tablet) 50 mg PO BEDTIME MRX1 PRN PRN Reason: Insomnia Last Admin: 11/13/24 20:28 Dose: 50 mg Venlafaxine HCl (Venlafaxine Hcl Er 150 Mg Cap.Er.24h) 150 mg PO DAILY [facility] Last Admin: 11/14/24 08:27 Dose: 150 mg Allergies Allergies Allergy/AdvReac Type Severity Reaction Status Date / Time No Known Allergies Allergy Verified 11/08/24 19:51 [No Known Allergies*] Assessment & Plan Assessment & Plan (1) Major depressive disorder, recurrent severe without psychotic features: Status: Acute Code(s): F33.2 - Major depressive disorder, recurrent severe without psychotic features (2) Dementia, vascular: Status: Acute Code(s): F01.50 - Vascular dementia, unspecified severity, without behavioral disturbance, psychotic disturbance, mood disturbance, and anxiety Assessment and Plan: Mild dementia probably related to age and extensive microvascular white matter disease (3) Parkinsonism: Status: Acute Code(s): G20.C - Parkinsonism, unspecified Assessment and Plan: 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 Recom.: Review the necessity of any anti- dopaminergic drugs and their dosages for her psychiatric needs. OP f/u with Dr. Hensley. Plan The patient is a middle-aged female with a past history of major depressive disorder who historically did very well on ECT and she was receiving ECT maintenance. She recently relapsed in her depressive symptoms and needed to be admitted for treatment due to suicidal ideation. 11/11 remains depressed; agrees with plan for ECT; says ECT has helped in the past but was not sure if subsequent ECT trials were effective 11/13: c/o anxiety, ativan 0.5 PRN ordered. otherwise continue current mgmt. PMR. 11/14: slightly more spontaneous today. seen by neuro. continue current mgmt. Plan 1. The patient is able to contract for safety so we are going to place her on 15 minute checks. 2. Follow-up with orthopedic team. 3. Referral for ECT ECT restarted, the patient improved after the 1st treatment. 4. Continue with same antidepressants. 11/15/24 refused ect start olanzapine encourage ect Patient educated on: diagnosis and medication risk/benefits Guardian/Caregiver educated on: diagnosis Informed Consent: further education needed Reason for continued inpatient stay Substantial Risk for: harm to self, inability to function and rapid decompensation Time Spent With Patient Time: Total time managing care of this patient today ____ minutes.
[2024-11-15 08:59] VITALS: BP 137/65; PULSE 80; RESP 15; TEMP 36.9; O2SAT 94
[2024-11-15] MEDS: ARIPiprazole 5 MG TABLET PO (09:00)
[2024-11-15] MEDS: Venlafaxine HCl ER 150 MG CAP.ER.24H PO (09:00)
[2024-11-15] MEDS: amLODIPine Besylate 2.5 MG TABLET PO (09:00)
[2024-11-15] MEDS: Aspirin Enteric Coated 81 MG TABLET.DR PO (09:00)
[2024-11-15 20:00] VITALS: BP 139/65; PULSE 73; RESP 16; TEMP 36.1; O2SAT 96
[2024-11-15] MEDS: Sennosides 8.6 MG TABLET PO (20:27)
[2024-11-15] MEDS: Docusate Sodium 100 MG CAPSULE PO (20:27)
[2024-11-15] MEDS: OLANZapine 2.5 MG TABLET PO (20:27)
[2024-11-16 08:00] VITALS: BP 168/77; PULSE 95; RESP 16; TEMP 36.7; O2SAT 97
[2024-11-16 09:02] VITALS: BP 168/77
[2024-11-16] MEDS: Aspirin Enteric Coated 81 MG TABLET.DR PO (09:02)
[2024-11-16] MEDS: Venlafaxine HCl ER 150 MG CAP.ER.24H PO (09:02)
[2024-11-16] MEDS: amLODIPine Besylate 2.5 MG TABLET PO ×2 (09:02→11:00)
[2024-11-16] MEDS: ARIPiprazole 5 MG TABLET PO (09:02)
[2024-11-16] MEDS: Vortioxetine Hydrobromide 5 MG TABLET PO (10:56)
[2024-11-16 11:00] VITALS: BP 158/74
--- NOTE | 2024-11-16 12:06 | PC.NURSE ---
BP 168/77, p 95 at 8AM, new order for Amlodipine 2.5 mg. Re-check before 11AM 158/74, P 81. No acute symptoms noted. Will continue to monitor.
[2024-11-16 12:31] VITALS: BP 135/61; PULSE 89
[2024-11-16] MEDS: LORazepam 0.5 MG TABLET PO (15:05)
[2024-11-16 20:00] VITALS: BP 135/63; PULSE 73; RESP 18; TEMP 36.7; O2SAT 95
[2024-11-16] MEDS: Docusate Sodium 100 MG CAPSULE PO (20:20)
[2024-11-16] MEDS: Sennosides 8.6 MG TABLET PO (20:20)
[2024-11-16] MEDS: OLANZapine 5 MG TABLET PO (20:20)
--- NOTE | 2024-11-16 21:10 | P.PNPSI_ITS ---
Subjective Subjective Date of Service: 11/16/24 Reason For Visit: severe depression psychosis si Subjective Notes: Conditional Voluntary Interim History: Patient has been depressed withdrawn eating some foods and taking in fluids. Remains with paranoid concerns on the unit thinking that people are not really who they are needs redirection at times. Mostly accepting of medication Medication Compliance: Yes Mental Status Exam Mental Status Exam Narrative: Appearance: wearing hospital gown Behavior: cooperative Psychomotor: Retardation noted Speech: clear, slow low volume TP: linear thought blocking poverty of content TC: Anxiety whether people are real Mood: Anxious depressed Affect: Constricted SI: none expressed HI: none expressed VH/AH: none expressed Delusions: people playing tricks on her Insight/judgment: Impaired Memory/cog: alert, oriented x 4. Diagnostics Vital Signs (24Hr): Vital Signs - 24 hr 11/16/24 08:00 11/16/24 09:02 11/16/24 11:00 Temperature 98.1 F Pulse Rate 95 Respiratory Rate 16 Blood Pressure 168/77 H 168/77 H 158/74 H Pulse Oximetry 97 Oxygen Delivery Method Room Air 11/16/24 12:31 11/16/24 20:00 Temperature 98.1 F Pulse Rate 89 73 Respiratory Rate 18 Blood Pressure 135/61 135/63 Pulse Oximetry 95 Oxygen Delivery Method Room Air BMI result Body Mass Index 22.4 Labs 11/10/24 07:56 11/10/24 07:56 Medications Medications Current Medications Acetaminophen (Acetaminophen 325 Mg Tablet) 650 mg PO TID PRN PRN Reason: pain Acetaminophen (Acetaminophen 325 Mg Tablet) 650 mg PO Q6H PRN PRN Reason: Headache/Pain, Scale 1-10 Al Hydroxide/Mg Hydroxide (Magnesium Hydrox/Alum Hydrox 30 Ml Oral.Susp) 30 ml PO Q6H PRN PRN Reason: Heartburn/Nausea Amlodipine Besylate (Amlodipine Besylate 5 Mg Tablet) 5 mg PO DAILY [facility]; Protocol Aripiprazole (Aripiprazole 5 Mg Tablet) 5 mg PO DAILY [facility] Last Admin: 11/16/24 09:02 Dose: 5 mg Aspirin (Aspirin Enteric Coated 81 Mg Tablet.Dr) 81 mg PO DAILY [facility] Last Admin: 11/16/24 09:02 Dose: 81 mg Docusate Sodium (Docusate Sodium 100 Mg Capsule) 100 mg PO BEDTIME [facility] Last Admin: 11/16/24 20:20 Dose: 100 mg Lorazepam (Lorazepam 0.5 Mg Tablet) 0.5 mg PO Q4H PRN PRN Reason: Anxiety Last Admin: 11/16/24 15:05 Dose: 0.5 mg Magnesium Hydroxide (Milk Of Magnesia 30 Ml Oral.Susp) 30 ml PO DAILY PRN PRN Reason: Constipation Olanzapine (Olanzapine 5 Mg Tablet) 5 mg PO BEDTIME [facility] Last Admin: 11/16/24 20:20 Dose: 5 mg Senna (Sennosides 8.6 Mg Tablet) 8.6 mg PO BEDTIME [facility] Last Admin: 11/16/24 20:20 Dose: 8.6 mg Trazodone HCl (Trazodone Hcl 50 Mg Tablet) 50 mg PO BEDTIME MRX1 PRN PRN Reason: Insomnia Last Admin: 11/13/24 20:28 Dose: 50 mg Venlafaxine HCl (Venlafaxine Hcl Er 150 Mg Cap.Er.24h) 150 mg PO DAILY [facility] Last Admin: 11/16/24 09:02 Dose: 150 mg Vortioxetine (Vortioxetine Hydrobromide 5 Mg Tablet) 5 mg PO DAILY [facility] Last Admin: 11/16/24 10:56 Dose: 5 mg Allergies Allergies Allergy/AdvReac Type Severity Reaction Status Date / Time No Known Allergies Allergy Verified 11/08/24 19:51 [No Known Allergies*] Assessment & Plan Assessment & Plan (1) Major depressive disorder, recurrent severe without psychotic features: Status: Acute Code(s): F33.2 - Major depressive disorder, recurrent severe without psychotic features (2) Dementia, vascular: Status: Acute Code(s): F01.50 - Vascular dementia, unspecified severity, without behavioral disturbance, psychotic disturbance, mood disturbance, and anxiety Assessment and Plan: Mild dementia probably related to age and extensive microvascular white matter disease (3) Parkinsonism: Status: Acute Code(s): G20.C - Parkinsonism, unspecified Assessment and Plan: 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 Recom.: Review the necessity of any anti- dopaminergic drugs and their dosages for her psychiatric needs. OP f/u with Dr. Hensley. Plan The patient is a middle-aged female with a past history of major depressive disorder who historically did very well on ECT and she was receiving ECT maintenance. She recently relapsed in her depressive symptoms and needed to be admitted for treatment due to suicidal ideation. 11/11 remains depressed; agrees with plan for ECT; says ECT has helped in the past but was not sure if subsequent ECT trials were effective 11/13: c/o anxiety, ativan 0.5 PRN ordered. otherwise continue current mgmt. PMR. 11/14: slightly more spontaneous today. seen by neuro. continue current mgmt. Plan 1. The patient is able to contract for safety so we are going to place her on 15 minute checks. 2. Follow-up with orthopedic team. 3. Referral for ECT ECT restarted, the patient improved after the 1st treatment. 4. Continue with same antidepressants. 11/15/24 refused ect start olanzapine encourage ect 11/16/2024 Olanzapine 5 mg bedtime mostly likely taper Abilify 5 mg has not prevented relapse Effexor 150 mg will not increase secondary to hypertension 5 mg Trintellix Extensive discussion with patient's daughter in diagnosis treatment treatment options in issues related to Healthcare proxy Patient educated on: diagnosis Guardian/Caregiver educated on: diagnosis, medication risk/benefits and medical condition Informed Consent: further education needed Reason for continued inpatient stay Substantial Risk for: harm to self, inability to function and rapid decompensation Time Spent With Patient Time: Total time managing care of this patient today 40____ minutes.
[2024-11-17] VITALS (10 sets, daily range): BP systolic 127–178; BP diastolic 65–83; PULSE 66–94; RESP 14–18; TEMP 36.2–37.6; O2SAT 95–100
[2024-11-17] MEDS: Lactated Ringers 1,000 ML 50 ML IVCONT (06:25)
--- NOTE | 2024-11-17 06:42 | P.CONAN_ITS ---
[facility] Active Problems Active Problems: All Active Problems Pre-op evaluation (Acute) Parkinsonism (Acute) Dementia, vascular (Acute) Major depressive disorder, recurrent, severe with psychotic features (Acute) Depression (Acute) Major depressive disorder, recurrent severe without psychotic features (Acute) OCD (obsessive compulsive disorder) (Acute) Abnormal finding on EKG (Acute) Past Medical History Medical History OCD (obsessive compulsive disorder) Major depressive disorder, recurrent severe without psychotic features S/P ECT (electroconvulsive therapy) Family History Family History Mother CHF (congestive heart failure) Family history of problems with anesthesia: No Surgical History Surgical History No history of previous surgery History of Problems with Anesthesia: No Social History Social History Household Members: None Housing: Apartment Housing Other:: Shelter community Do you presently have visiting nurse or other home services: Yes ([employer] [facility]) Patient Tobacco Use Status: Never used Tobacco Use of substances other than those prescribed or required for medical reasons: No Currently Displaying Signs/Symptoms of Drug Intoxication Withdrawal: No Any prior treatment program specific to substance use: No Have you been hit, kicked, punched, or otherwise hurt by someone within the past year? If so, by whom?: No Do you feel safe in your current relationship?: Yes Is there a partner from a previous relationship who is making you feel unsafe now?: No Are you made to feel afraid or neglected: No Advance Directives: No Advance Directives Information Provided: Yes Do you have thoughts of harming others: None Do you have a plan to hurt others: No Plan Recently lost weight without trying: No How much weight loss: Not applicable Eating poorly because of decreased appetite: No Nutrition screen score: 0 Nutrition Risks: No Nutritional Risk Patient : No : No Poor oral hygiene: Yes (I brush, but not very well. ) service: No Sexual orientation: Straight/Heterosexual Meds Allergies Allergy/AdvReac Type Severity Reaction Status Date / Time No Known Allergies Allergy Verified 11/08/24 19:51 [No Known Allergies*] Active Medications: Current Medications Acetaminophen (Acetaminophen 325 Mg Tablet) 650 mg PO TID PRN PRN Reason: pain Acetaminophen (Acetaminophen 325 Mg Tablet) 650 mg PO Q6H PRN PRN Reason: Headache/Pain, Scale 1-10 Al Hydroxide/Mg Hydroxide (Magnesium Hydrox/Alum Hydrox 30 Ml Oral.Susp) 30 ml PO Q6H PRN PRN Reason: Heartburn/Nausea Amlodipine Besylate (Amlodipine Besylate 5 Mg Tablet) 5 mg PO DAILY [facility]; Protocol Aripiprazole (Aripiprazole 5 Mg Tablet) 5 mg PO DAILY [facility] Last Admin: 11/16/24 09:02 Dose: 5 mg Aspirin (Aspirin Enteric Coated 81 Mg Tablet.Dr) 81 mg PO DAILY [facility] Last Admin: 11/16/24 09:02 Dose: 81 mg Docusate Sodium (Docusate Sodium 100 Mg Capsule) 100 mg PO BEDTIME [facility] Last Admin: 11/16/24 20:20 Dose: 100 mg Lactated Ringer's (Lr) 1,000 mls @ 50 mls/hr IVCONT .Q20H [facility] Last Admin: 11/17/24 06:25 Dose: 50 mls/hr Lactated Ringer's (Lr) 1,000 mls @ 50 mls/hr IVCONT .Q20H [facility] Lorazepam (Lorazepam 0.5 Mg Tablet) 0.5 mg PO Q4H PRN PRN Reason: Anxiety Last Admin: 11/16/24 15:05 Dose: 0.5 mg Magnesium Hydroxide (Milk Of Magnesia 30 Ml Oral.Susp) 30 ml PO DAILY PRN PRN Reason: Constipation Olanzapine (Olanzapine 5 Mg Tablet) 5 mg PO BEDTIME [facility] Last Admin: 11/16/24 20:20 Dose: 5 mg Senna (Sennosides 8.6 Mg Tablet) 8.6 mg PO BEDTIME [facility] Last Admin: 11/16/24 20:20 Dose: 8.6 mg Trazodone HCl (Trazodone Hcl 50 Mg Tablet) 50 mg PO BEDTIME MRX1 PRN PRN Reason: Insomnia Last Admin: 11/13/24 20:28 Dose: 50 mg Venlafaxine HCl (Venlafaxine Hcl Er 150 Mg Cap.Er.24h) 150 mg PO DAILY [facility] Last Admin: 11/16/24 09:02 Dose: 150 mg Vortioxetine (Vortioxetine Hydrobromide 5 Mg Tablet) 5 mg PO DAILY [facility] Last Admin: 11/16/24 10:56 Dose: 5 mg Home Medications ?Medication ?Instructions ?Recorded ?Confirmed ?Last Taken ?Type acetaminophen 500 mg tablet 500 mg PO TID PRN pain 11/09/24 11/09/24 Unknown History (Acetaminophen Extra Strength) docusate sodium 100 mg capsule 100 mg PO BEDTIME constipation 11/09/24 11/09/24 11/07/24 20:00 History (Colace) memantine 7 mg capsule 7 mg PO DAILY 11/09/24 11/09/24 11/08/24 08:00 History sprinkle,extended release 24hr sennosides 8.6 mg tablet (senna) 8.6 mg PO BEDTIME 11/09/24 11/09/24 11/07/24 20:00 History trazodone 50 mg tablet 50 mg PO BEDTIME 11/09/24 11/09/24 Unknown History Exam Height,Weight and Vital Signs: Height 5 ft 3 in Weight 57.323 kg Last Vital Signs Temp 97.3 F 11/17/24 06:21 Pulse 76 11/17/24 06:21 Resp 18 11/17/24 06:21 BP 161/74 H 11/17/24 06:21 Pulse Ox 96 11/17/24 06:21 O2 Del Method Room Air 11/17/24 06:21 O2 Flow Rate 4 11/13/24 08:15 Pertinent Lab Results Pertinent Lab Results: Laboratory Tests 11/08/24 11/08/24 11/10/24 19:58 21:01 07:56 WBC 9.6 8.9 RBC 4.65 5.14 Hgb 14.2 15.9 Hct 41.4 44.8 MCV 89.0 87.2 MCH 30.5 30.9 MCHC 34.3 35.5 H RDW 13.6 13.2 Plt Count 229 240 MPV 10.1 10.7 Immature Gran % (Auto) 0.2 0.3 Neut % (Auto) 64.3 63.1 Lymph % (Auto) 25.6 27.7 [place] % (Auto) 8.8 8.0 Eos % (Auto) 0.6 0.6 Baso % (Auto) 0.5 0.3 Lymph # (Auto) 2.5 2.5 [place] # (Auto) 0.9 0.7 Eos # (Auto) 0.1 0.1 Baso # (Auto) 0.1 0.0 Abs Immat Gran (auto) 0.02 0.03 Absolute Neuts (auto) 6.2 5.6 Absolute Nucleated RBC 0.000 0.000 Nucleated RBC % (auto) 0.0 0.0 Sodium 135 135 Potassium 4.4 4.0 Chloride 99 101 Carbon Dioxide 27 25 Anion Gap 13 13 BUN 19 H 16 Creatinine 0.92 0.78 Estim Creat Clear Calc 38.9 46.0 Estimated GFR 58 > 60 Random Glucose 122 H 87 Estimat Average Glucose 111 Hemoglobin A1c % 5.5 Calcium 9.4 9.3 Magnesium 2.1 Total Bilirubin 0.4 0.8 Direct Bilirubin 0.1 AST 24 25 ALT 26 16 Alkaline Phosphatase 82 69 Total Protein 6.6 6.4 L Albumin 4.3 4.2 Triglycerides 64 Cholesterol 264 H LDL Cholesterol, Calc 154 H HDL Cholesterol 98 Vitamin B12 567 Folate 9.3 TSH 2.75 Urine Color Yellow Urine Appearance Clear Urine pH 5.5 Ur Specific [place] 1.020 Urine Protein Negative Urine Glucose (UA) Negative Urine Ketones Trace Urine Blood Negative Urine Nitrite Negative Ur Leukocyte Esterase Moderate (2+) H Urine RBC 0-2 Urine WBC 21-50 H Ur Squamous Epith Cells 3-5 Urine Bacteria None Seen Hyaline Casts 0-2 Urine Opiates Screen Not Detected Ur Buprenorphine Scrn Not Detected Ur Oxycodone Screen Not Detected Urine Methadone Screen Not Detected Urine Fentanyl Screen Not Detected Ur Barbiturates Screen Not Detected Ur Phencyclidine Scrn Not Detected Ur Amphetamines Screen Not Detected U Benzodiazepines Scrn Not Detected Urine Cocaine Screen Not Detected U Marijuana (THC) Screen Not Detected Ethyl Alcohol < 10 Airway Mallampati Class: II TM Dist: >3cm Neck ROM: Full Heart: rrr Lungs: cta Assessment and Plan Assessment Anesthesia Assessment: Anesthesia Plan Discussed and Chart Reviewed Final Anesthetic Review Family History of Problems with Anesthesia: No History of Problems with Anesthesia: No NPO: Yes ASA Class: III Final Preanesthetic Review: No Changes in Pt Med Stat, Meds/Allgs Chart Reviewed and Consent Obtained/Reviewed Patient Risk: Intermediate Procedure Risk: Intermediate Anesthetic Plan Anesthetic Plan: GA Disposition: Standard PACU
--- NOTE | 2024-11-17 07:17 | MHC.SHP ---
Pre-Procedural Eval Section A - 24 Hr Update-Section A only Date of Service: 11/17/24 The patient is an INPATIENT: Yes Changes since office visit: Yes Patient answered all questions; No Cold of Flu in the past 2 weeks, No New Medical Problems and No Changes in Medication The patient has been examined within 24 hours of the surgical procedure. The History & Physical has been completed within 30 days and I have reviewed it.: Yes Section B - Complete if H&P > 30 days Chief Complaint: severe depression psychosis si Allergies: Allergies Allergy/AdvReac Type Severity Reaction Status Date / Time No Known Allergies Allergy Verified 11/08/24 19:51 [No Known Allergies*] Plan I have reviewed the history and physical and performed a pertinent physical examination on my patient. No changes have occurred unless specified. Time Spent With Patient Time: Total time managing care of this patient today __30__ minutes.
--- NOTE | 2024-11-17 07:41 | HO.ECTPROC ---
ECT Procedure Note Diagnosis/Treatment Date of Service: 11/17/24 Diagnosis: Major Depressive Disorder (with psychosis) Previous ECT Date: 11/13/24 Current Treatment Number: 3 Treatment: Series Interval Clinical Notes: pt has been depressed with paranoia agreeable to ect this am Time: Total time managing care of this patient today 30____ minutes. ECT Settings Device: THYMATRON DGx Electrode Placement: Right Unilateral Program/Pulse Width: 0.25 Energy Percent: 10 Seizure Duration By EEG (in seconds): 61 Medications Administration General Anesthetic: Etomidate (14) and Propofol (30 mg ) Muscle Relaxant: Succinylcholine (80) Airway Management Airway Management: Bag Mask Ventilation Treatment Recommendations No Changes Recommended: No change
--- NOTE | 2024-11-17 07:59 | P.PNPSI_ITS ---
Subjective Subjective Date of Service: 11/17/24 Reason For Visit: severe depression psychosis si Subjective Notes: Conditional Voluntary Interim History: Patient tolerated treatment well. ECT 3 completed. Seem to be less internally preoccupied less anxious with decreased paranoia Medication Compliance: Yes Mental Status Exam Mental Status Exam Narrative: Appearance: wearing hospital gown Behavior: cooperative Psychomotor: Retardation noted Speech: clear, slow low volume TP: linear thought blocking poverty of content TC: Less paranoid preoccupation states feeling bad Mood: Anxious depressed Affect: Constricted SI: none expressed HI: none expressed VH/AH: none expressed Delusions: Denies currently Insight/judgment: Impaired Memory/cog: alert, oriented x 4. Diagnostics Vital Signs (24Hr): Vital Signs - 24 hr 11/16/24 08:00 11/16/24 09:02 11/16/24 11:00 Temperature 98.1 F Pulse Rate 95 Respiratory Rate 16 Blood Pressure 168/77 H 168/77 H 158/74 H Pulse Oximetry 97 Oxygen Delivery Method Room Air Oxygen Flow Rate 11/16/24 12:31 11/16/24 20:00 11/17/24 05:32 Temperature 98.1 F 97.2 F Pulse Rate 89 73 79 Respiratory Rate 18 16 Blood Pressure 135/61 135/63 159/77 H Pulse Oximetry 95 96 Oxygen Delivery Method Room Air Oxygen Flow Rate 11/17/24 06:21 11/17/24 07:38 11/17/24 07:40 Temperature 97.3 F 98.4 F Pulse Rate 76 80 66 Respiratory Rate 18 16 16 Blood Pressure 161/74 H 140/65 H 130/72 Pulse Oximetry 96 100 100 Oxygen Delivery Method Room Air Nasal Cannula Nasal Cannula Oxygen Flow Rate 2 2 11/17/24 07:45 11/17/24 07:50 Temperature Pulse Rate 70 73 Respiratory Rate 16 18 Blood Pressure 127/76 150/73 H Pulse Oximetry 98 97 Oxygen Delivery Method Nasal Cannula Nasal Cannula Oxygen Flow Rate 2 2 BMI result Body Mass Index 22.4 Labs 11/10/24 07:56 11/10/24 07:56 Medications Medications Current Medications Acetaminophen (Acetaminophen 325 Mg Tablet) 650 mg PO TID PRN PRN Reason: pain Acetaminophen (Acetaminophen 325 Mg Tablet) 650 mg PO Q6H PRN PRN Reason: Headache/Pain, Scale 1-10 Al Hydroxide/Mg Hydroxide (Magnesium Hydrox/Alum Hydrox 30 Ml Oral.Susp) 30 ml PO Q6H PRN PRN Reason: Heartburn/Nausea Amlodipine Besylate (Amlodipine Besylate 5 Mg Tablet) 5 mg PO DAILY [facility]; Protocol Aripiprazole (Aripiprazole 5 Mg Tablet) 5 mg PO DAILY [facility] Last Admin: 11/16/24 09:02 Dose: 5 mg Aspirin (Aspirin Enteric Coated 81 Mg Tablet.Dr) 81 mg PO DAILY [facility] Last Admin: 11/16/24 09:02 Dose: 81 mg Docusate Sodium (Docusate Sodium 100 Mg Capsule) 100 mg PO BEDTIME [facility] Last Admin: 11/16/24 20:20 Dose: 100 mg Lactated Ringer's (Lr) 1,000 mls @ 50 mls/hr IVCONT .Q20H DENISSE Last Admin: 11/17/24 06:25 Dose: 50 mls/hr Lactated Ringer's (Lr) 1,000 mls @ 50 mls/hr IVCONT .Q20H [facility] Lorazepam (Lorazepam 0.5 Mg Tablet) 0.5 mg PO Q4H PRN PRN Reason: Anxiety Last Admin: 11/16/24 15:05 Dose: 0.5 mg Magnesium Hydroxide (Milk Of Magnesia 30 Ml Oral.Susp) 30 ml PO DAILY PRN PRN Reason: Constipation Naloxone HCl (Naloxone Hcl 0.4 Mg/Ml Vial) 0.04 mg IVPUSH Q5M PRN PRN Reason: Excessive sedation or RR < 8 Olanzapine (Olanzapine 5 Mg Tablet) 5 mg PO BEDTIME [facility] Last Admin: 11/16/24 20:20 Dose: 5 mg Senna (Sennosides 8.6 Mg Tablet) 8.6 mg PO BEDTIME [facility] Last Admin: 11/16/24 20:20 Dose: 8.6 mg Trazodone HCl (Trazodone Hcl 50 Mg Tablet) 50 mg PO BEDTIME MRX1 PRN PRN Reason: Insomnia Last Admin: 11/13/24 20:28 Dose: 50 mg Venlafaxine HCl (Venlafaxine Hcl Er 150 Mg Cap.Er.24h) 150 mg PO DAILY [facility] Last Admin: 11/16/24 09:02 Dose: 150 mg Vortioxetine (Vortioxetine Hydrobromide 5 Mg Tablet) 5 mg PO DAILY [facility] Last Admin: 11/16/24 10:56 Dose: 5 mg Allergies Allergies Allergy/AdvReac Type Severity Reaction Status Date / Time No Known Allergies Allergy Verified 11/08/24 19:51 [No Known Allergies*] Assessment & Plan Assessment & Plan (1) Dementia, vascular: Status: Acute Code(s): F01.50 - Vascular dementia, unspecified severity, without behavioral disturbance, psychotic disturbance, mood disturbance, and anxiety Assessment and Plan: Mild dementia probably related to age and extensive microvascular white matter disease (2) Parkinsonism: Status: Acute Code(s): G20.C - Parkinsonism, unspecified Assessment and Plan: 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 Recom.: Review the necessity of any anti- dopaminergic drugs and their dosages for her psychiatric needs. OP f/u with Dr. Hensley. (3) Major depressive disorder, recurrent, severe with psychotic features: Status: Acute Code(s): F33.3 - Major depressive disorder, recurrent, severe with psychotic symptoms Plan The patient is a middle-aged female with a past history of major depressive disorder who historically did very well on ECT and she was receiving ECT maintenance. She recently relapsed in her depressive symptoms and needed to be admitted for treatment due to suicidal ideation. 11/11 remains depressed; agrees with plan for ECT; says ECT has helped in the past but was not sure if subsequent ECT trials were effective 11/13: c/o anxiety, ativan 0.5 PRN ordered. otherwise continue current mgmt. PMR. 11/14: slightly more spontaneous today. seen by neuro. continue current mgmt. Plan 1. The patient is able to contract for safety so we are going to place her on 15 minute checks. 2. Follow-up with orthopedic team. 3. Referral for ECT ECT restarted, the patient improved after the 1st treatment. 4. Continue with same antidepressants. 11/15/24 refused ect start olanzapine encourage ect 11/17/2024 Continue plan of care Trintellix olanzapine started Reason for continued inpatient stay Substantial Risk for: harm to self and rapid decompensation Time Spent With Patient Time: Total time managing care of this patient today ____ minutes.
[2024-11-17] MEDS: Vortioxetine Hydrobromide 5 MG TABLET PO (09:16)
[2024-11-17] MEDS: Aspirin Enteric Coated 81 MG TABLET.DR PO (09:17)
[2024-11-17] MEDS: amLODIPine Besylate 5 MG TABLET PO (09:17)
[2024-11-17] MEDS: ARIPiprazole 5 MG TABLET PO (09:17)
[2024-11-17] MEDS: Venlafaxine HCl ER 150 MG CAP.ER.24H PO (09:17)
--- NOTE | 2024-11-17 18:00 | MHC.EVENTN ---
At 5:53p she was noted getting herself off the chau she stated I thought the chair was much closer. Denies all pain V/S stable
--- NOTE | 2024-11-17 18:21 | MHC.EVENTN ---
Dr Vyas was notified of the fall, Supervior was texted and notified and a call placed to her son and message left for him to call us back
[2024-11-17] MEDS: traZODone HCL 50 MG TABLET PO (20:08)
[2024-11-17] MEDS: OLANZapine 5 MG TABLET PO (20:08)
[2024-11-17] MEDS: Docusate Sodium 100 MG CAPSULE PO (20:08)
[2024-11-17] MEDS: LORazepam 0.5 MG TABLET PO (20:09)
[2024-11-17] MEDS: Sennosides 8.6 MG TABLET PO (20:11)
[2024-11-18 08:00] VITALS: BP 117/58; PULSE 83; RESP 16; TEMP 36.7; O2SAT 96
[2024-11-18] MEDS: ARIPiprazole 5 MG TABLET PO (08:49)
[2024-11-18] MEDS: Aspirin Enteric Coated 81 MG TABLET.DR PO (08:49)
[2024-11-18] MEDS: Vortioxetine Hydrobromide 5 MG TABLET PO (08:49)
[2024-11-18] MEDS: Venlafaxine HCl ER 150 MG CAP.ER.24H PO (08:49)
[2024-11-18] MEDS: amLODIPine Besylate 5 MG TABLET PO (08:49)
--- NOTE | 2024-11-18 14:47 | P.PNPSI_ITS ---
Subjective Subjective Date of Service: 11/18/24 Reason For Visit: severe depression psychosis si Interim History: paucity of thought. doing OK. no complaints or requests. per staff, had ECT yesterday, missed her chair and sat hard on the floor. no noted injury. Mental Status Exam Mental Status Exam Narrative: Appearance: wearing hospital gown Behavior: cooperative Psychomotor: Retardation noted Speech: clear, slow low volume TP: linear thought blocking poverty of content TC: Less paranoid preoccupation states feeling bad Mood: Anxious depressed Affect: Constricted SI: none expressed HI: none expressed VH/AH: none expressed Delusions: Denies currently Insight/judgment: Impaired Memory/cog: alert, oriented x 4. Diagnostics Vital Signs (24Hr): Vital Signs - 24 hr 11/17/24 20:00 11/18/24 08:00 Temperature 98.4 F 98.1 F Pulse Rate 94 83 Respiratory Rate 18 16 Blood Pressure 155/72 H 117/58 L Pulse Oximetry 95 96 Oxygen Delivery Method Room Air Room Air BMI result Body Mass Index 22.4 Labs 11/10/24 07:56 11/10/24 07:56 Medications Medications Current Medications Acetaminophen (Acetaminophen 325 Mg Tablet) 650 mg PO TID PRN PRN Reason: pain Acetaminophen (Acetaminophen 325 Mg Tablet) 650 mg PO Q6H PRN PRN Reason: Headache/Pain, Scale 1-10 Al Hydroxide/Mg Hydroxide (Magnesium Hydrox/Alum Hydrox 30 Ml Oral.Susp) 30 ml PO Q6H PRN PRN Reason: Heartburn/Nausea Amlodipine Besylate (Amlodipine Besylate 5 Mg Tablet) 5 mg PO DAILY [facility]; Protocol Last Admin: 11/18/24 08:49 Dose: 5 mg Aripiprazole (Aripiprazole 5 Mg Tablet) 5 mg PO DAILY [facility] Last Admin: 11/18/24 08:49 Dose: 5 mg Aspirin (Aspirin Enteric Coated 81 Mg Tablet.Dr) 81 mg PO DAILY [facility] Last Admin: 11/18/24 08:49 Dose: 81 mg Docusate Sodium (Docusate Sodium 100 Mg Capsule) 100 mg PO BEDTIME [facility] Last Admin: 11/17/24 20:08 Dose: 100 mg Lorazepam (Lorazepam 0.5 Mg Tablet) 0.5 mg PO Q4H PRN PRN Reason: Anxiety Last Admin: 11/17/24 20:09 Dose: 0.5 mg Magnesium Hydroxide (Milk Of Magnesia 30 Ml Oral.Susp) 30 ml PO DAILY PRN PRN Reason: Constipation Naloxone HCl (Naloxone Hcl 0.4 Mg/Ml Vial) 0.04 mg IVPUSH Q5M PRN PRN Reason: Excessive sedation or RR < 8 Olanzapine (Olanzapine 5 Mg Tablet) 5 mg PO BEDTIME [facility] Last Admin: 11/17/24 20:08 Dose: 5 mg Senna (Sennosides 8.6 Mg Tablet) 8.6 mg PO BEDTIME [facility] Last Admin: 11/17/24 20:11 Dose: 8.6 mg Trazodone HCl (Trazodone Hcl 50 Mg Tablet) 50 mg PO BEDTIME MRX1 PRN PRN Reason: Insomnia Last Admin: 11/17/24 20:08 Dose: 50 mg Venlafaxine HCl (Venlafaxine Hcl Er 150 Mg Cap.Er.24h) 150 mg PO DAILY [facility] Last Admin: 11/18/24 08:49 Dose: 150 mg Vortioxetine (Vortioxetine Hydrobromide 5 Mg Tablet) 5 mg PO DAILY [facility] Last Admin: 11/18/24 08:49 Dose: 5 mg Allergies Allergies Allergy/AdvReac Type Severity Reaction Status Date / Time No Known Allergies Allergy Verified 11/08/24 19:51 [No Known Allergies*] Assessment & Plan Assessment & Plan (1) Dementia, vascular: Status: Acute Code(s): F01.50 - Vascular dementia, unspecified severity, without behavioral disturbance, psychotic disturbance, mood disturbance, and anxiety Assessment and Plan: Mild dementia probably related to age and extensive microvascular white matter disease (2) Parkinsonism: Status: Acute Code(s): G20.C - Parkinsonism, unspecified Assessment and Plan: 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 Recom.: Review the necessity of any anti- dopaminergic drugs and their dosages for her psychiatric needs. OP f/u with Dr. Hensley. (3) Major depressive disorder, recurrent, severe with psychotic features: Status: Acute Code(s): F33.3 - Major depressive disorder, recurrent, severe with psychotic symptoms Plan The patient is a middle-aged female with a past history of major depressive disorder who historically did very well on ECT and she was receiving ECT maintenance. She recently relapsed in her depressive symptoms and needed to be admitted for treatment due to suicidal ideation. 11/11 remains depressed; agrees with plan for ECT; says ECT has helped in the past but was not sure if subsequent ECT trials were effective 11/13: c/o anxiety, ativan 0.5 PRN ordered. otherwise continue current mgmt. PMR. 11/14: slightly more spontaneous today. seen by neuro. continue current mgmt. Plan 1. The patient is able to contract for safety so we are going to place her on 15 minute checks. 2. Follow-up with orthopedic team. 3. Referral for ECT ECT restarted, the patient improved after the 1st treatment. 4. Continue with same antidepressants. 11/15/24 refused ect start olanzapine encourage ect 11/17/2024 Continue plan of care Trintellix olanzapine started 11/18: ECT #2 completed 11/17. remains very slowed with paucity of thought. continue current mgmt. Reason for continued inpatient stay Substantial Risk for: inability to function Time Spent With Patient Time: Total time managing care of this patient today ____ minutes.
[2024-11-18 20:00] VITALS: BP 145/65; PULSE 97; RESP 18; TEMP 36.5; O2SAT 95
[2024-11-18] MEDS: LORazepam 0.5 MG TABLET PO (20:07)
[2024-11-18] MEDS: Docusate Sodium 100 MG CAPSULE PO (20:07)
[2024-11-18] MEDS: OLANZapine 5 MG TABLET PO (20:07)
[2024-11-18] MEDS: Sennosides 8.6 MG TABLET PO (20:07)
[2024-11-18] MEDS: traZODone HCL 50 MG TABLET PO (20:07)
[2024-11-19 08:00] VITALS: BP 125/60; PULSE 79; RESP 14; TEMP 36.7; O2SAT 100
[2024-11-19] MEDS: Vortioxetine Hydrobromide 5 MG TABLET PO (08:10)
[2024-11-19] MEDS: amLODIPine Besylate 5 MG TABLET PO (08:10)
[2024-11-19] MEDS: ARIPiprazole 5 MG TABLET PO (08:11)
[2024-11-19] MEDS: Venlafaxine HCl ER 150 MG CAP.ER.24H PO (08:11)
[2024-11-19] MEDS: Aspirin Enteric Coated 81 MG TABLET.DR PO (08:11)
--- NOTE | 2024-11-19 14:00 | P.PNPSI_ITS ---
Subjective Subjective Date of Service: 11/19/24 Reason For Visit: severe depression psychosis si Interim History: i get confused. has been unsure of the day, thought she could not eat bcse it was wednesday and she was going to have ECT. reoriented to the fact it is wednesday and she can eat until [place]. she appears to remain unconvinced. per staff, owning and wandering yesterday jaret. confused. Mental Status Exam Mental Status Exam Narrative: Appearance: wearing hospital gown Behavior: cooperative Psychomotor: Retardation noted Speech: clear, slow low volume TP: linear thought blocking poverty of content TC: Less paranoid preoccupation states feeling bad Mood: Anxious depressed Affect: Constricted SI: none expressed HI: none expressed VH/AH: none expressed Delusions: none expressed Insight/judgment: Impaired Memory/cog: alert, oriented x 4. Diagnostics Vital Signs (24Hr): Vital Signs - 24 hr 11/18/24 20:00 11/19/24 08:00 Temperature 97.7 F 98.1 F Pulse Rate 97 79 Respiratory Rate 18 14 Blood Pressure 145/65 H 125/60 Pulse Oximetry 95 100 Oxygen Delivery Method Room Air Room Air BMI result Body Mass Index 22.4 Labs 11/10/24 07:56 11/10/24 07:56 Medications Medications Current Medications Acetaminophen (Acetaminophen 325 Mg Tablet) 650 mg PO TID PRN PRN Reason: pain Acetaminophen (Acetaminophen 325 Mg Tablet) 650 mg PO Q6H PRN PRN Reason: Headache/Pain, Scale 1-10 Al Hydroxide/Mg Hydroxide (Magnesium Hydrox/Alum Hydrox 30 Ml Oral.Susp) 30 ml PO Q6H PRN PRN Reason: Heartburn/Nausea Amlodipine Besylate (Amlodipine Besylate 5 Mg Tablet) 5 mg PO DAILY [facility]; Protocol Last Admin: 11/19/24 08:10 Dose: 5 mg Aripiprazole (Aripiprazole 5 Mg Tablet) 5 mg PO DAILY [facility] Last Admin: 11/19/24 08:11 Dose: 5 mg Aspirin (Aspirin Enteric Coated 81 Mg Tablet.Dr) 81 mg PO DAILY [facility] Last Admin: 11/19/24 08:11 Dose: 81 mg Docusate Sodium (Docusate Sodium 100 Mg Capsule) 100 mg PO BEDTIME [facility]ISSE Last Admin: 11/18/24 20:07 Dose: 100 mg Lorazepam (Lorazepam 0.5 Mg Tablet) 0.5 mg PO Q4H PRN PRN Reason: Anxiety Last Admin: 11/18/24 20:07 Dose: 0.5 mg Magnesium Hydroxide (Milk Of Magnesia 30 Ml Oral.Susp) 30 ml PO DAILY PRN PRN Reason: Constipation Naloxone HCl (Naloxone Hcl 0.4 Mg/Ml Vial) 0.04 mg IVPUSH Q5M PRN PRN Reason: Excessive sedation or RR < 8 Olanzapine (Olanzapine 5 Mg Tablet) 5 mg PO BEDTIME [facility] Last Admin: 11/18/24 20:07 Dose: 5 mg Senna (Sennosides 8.6 Mg Tablet) 8.6 mg PO BEDTIME [facility]IS[facility] Last Admin: 11/18/24 20:07 Dose: 8.6 mg Trazodone HCl (Trazodone Hcl 50 Mg Tablet) 50 mg PO BEDTIME MRX1 PRN PRN Reason: Insomnia Last Admin: 11/18/24 20:07 Dose: 50 mg Venlafaxine HCl (Venlafaxine Hcl Er 150 Mg Cap.Er.24h) 150 mg PO DAILY [facility] Last Admin: 11/19/24 08:11 Dose: 150 mg Vortioxetine (Vortioxetine Hydrobromide 5 Mg Tablet) 5 mg PO DAILY [facility] Last Admin: 11/19/24 08:10 Dose: 5 mg Allergies Allergies Allergy/AdvReac Type Severity Reaction Status Date / Time No Known Allergies Allergy Verified 11/08/24 19:51 [No Known Allergies*] Assessment & Plan Assessment & Plan (1) Dementia, vascular: Status: Acute Code(s): F01.50 - Vascular dementia, unspecified severity, without behavioral disturbance, psychotic disturbance, mood disturbance, and anxiety Assessment and Plan: Mild dementia probably related to age and extensive microvascular white matter disease (2) Parkinsonism: Status: Acute Code(s): G20.C - Parkinsonism, unspecified Assessment and Plan: 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 Recom.: Review the necessity of any anti- dopaminergic drugs and their dosages for her psychiatric needs. OP f/u with Dr. Hensley. (3) Major depressive disorder, recurrent, severe with psychotic features: Status: Acute Code(s): F33.3 - Major depressive disorder, recurrent, severe with psychotic symptoms Plan The patient is a middle-aged female with a past history of major depressive disorder who historically did very well on ECT and she was receiving ECT maintenance. She recently relapsed in her depressive symptoms and needed to be admitted for treatment due to suicidal ideation. 11/11 remains depressed; agrees with plan for ECT; says ECT has helped in the past but was not sure if subsequent ECT trials were effective 11/13: c/o anxiety, ativan 0.5 PRN ordered. otherwise continue current mgmt. PMR. 11/14: slightly more spontaneous today. seen by neuro. continue current mgmt. Plan 1. The patient is able to contract for safety so we are going to place her on 15 minute checks. 2. Follow-up with orthopedic team. 3. Referral for ECT ECT restarted, the patient improved after the 1st treatment. 4. Continue with same antidepressants. 11/15/24 refused ect start olanzapine encourage ect 11/17/2024 Continue plan of care Trintellix olanzapine started 11/18: ECT #2 completed 11/17. remains very slowed with paucity of thought. continue current mgmt. 11/19: appears confused, not oriented to day. ECT #3 tomorrow, T/C decreasing stimulus dose. Reason for continued inpatient stay Substantial Risk for: inability to function Time Spent With Patient Time: Total time managing care of this patient today ____ minutes.
[2024-11-19 20:14] VITALS: BP 127/61; PULSE 97; TEMP 36.6; O2SAT 93
[2024-11-19] MEDS: Sennosides 8.6 MG TABLET PO (20:21)
[2024-11-19] MEDS: OLANZapine 5 MG TABLET PO (20:21)
[2024-11-19] MEDS: Docusate Sodium 100 MG CAPSULE PO (20:21)
[2024-11-20] VITALS (9 sets, daily range): BP systolic 117–146; BP diastolic 62–70; PULSE 63–95; RESP 16–18; TEMP 36.2–37.3; O2SAT 95–100
[2024-11-20] MEDS: Lactated Ringers 1,000 ML 50 ML IVCONT (06:34)
--- NOTE | 2024-11-20 06:48 | HO.ANESPROP2 ---
[facility] Active Problems Active Problems: All Active Problems Pre-op evaluation (Acute) Parkinsonism (Acute) Dementia, vascular (Acute) Major depressive disorder, recurrent, severe with psychotic features (Acute) Depression (Acute) Abnormal finding on EKG (Acute) Major depressive disorder, recurrent severe without psychotic features (Acute) OCD (obsessive compulsive disorder) (Acute) Past Medical History Medical History (Updated 11/20/24 @ 06:26 by Maddie Corbin RN) History of fracture of left ankle OCD (obsessive compulsive disorder) Major depressive disorder, recurrent severe without psychotic features S/P ECT (electroconvulsive therapy) Family History Family History Mother CHF (congestive heart failure) Family history of problems with anesthesia: No Surgical History Surgical History No history of previous surgery History of Problems with Anesthesia: No Social History Social History Household Members: None Housing: Apartment Housing Other:: Intermediate community Do you presently have visiting nurse or other home services: Yes ([employer] [facility]) Patient Tobacco Use Status: Never used Tobacco Smoked in Last 30 Days: No e-Cigarette/Vaping Use: Never Used Use of substances other than those prescribed or required for medical reasons: No Currently Displaying Signs/Symptoms of Drug Intoxication Withdrawal: No Any prior treatment program specific to substance use: No Have you been hit, kicked, punched, or otherwise hurt by someone within the past year? If so, by whom?: No Do you feel safe in your current relationship?: Yes Is there a partner from a previous relationship who is making you feel unsafe now?: No Are you made to feel afraid or neglected: No Are you DNR?: No Advance Directives: No Advance Directives Information Provided: Yes Do you have thoughts of harming others: None Do you have a plan to hurt others: No Plan Recently lost weight without trying: No How much weight loss: Not applicable Eating poorly because of decreased appetite: No Nutrition screen score: 0 Nutrition Risks: No Nutritional Risk Patient : No : No Poor oral hygiene: Yes (I brush, but not very well. ) service: No Sexual orientation: Straight/Heterosexual Meds Allergies Allergy/AdvReac Type Severity Reaction Status Date / Time No Known Allergies Allergy Verified 11/20/24 06:27 [No Known Allergies*] Active Medications: Current Medications Acetaminophen (Acetaminophen 325 Mg Tablet) 650 mg PO TID PRN PRN Reason: pain Acetaminophen (Acetaminophen 325 Mg Tablet) 650 mg PO Q6H PRN PRN Reason: Headache/Pain, Scale 1-10 Al Hydroxide/Mg Hydroxide (Magnesium Hydrox/Alum Hydrox 30 Ml Oral.Susp) 30 ml PO Q6H PRN PRN Reason: Heartburn/Nausea Amlodipine Besylate (Amlodipine Besylate 5 Mg Tablet) 5 mg PO DAILY [facility]; Protocol Last Admin: 11/19/24 08:10 Dose: 5 mg Aripiprazole (Aripiprazole 5 Mg Tablet) 5 mg PO DAILY [facility] Last Admin: 11/19/24 08:11 Dose: 5 mg Aspirin (Aspirin Enteric Coated 81 Mg Tablet.Dr) 81 mg PO DAILY [facility] Last Admin: 11/19/24 08:11 Dose: 81 mg Docusate Sodium (Docusate Sodium 100 Mg Capsule) 100 mg PO BEDTIME [facility] Last Admin: 11/19/24 20:21 Dose: 100 mg Lactated Ringer's (Lr) 1,000 mls @ 50 mls/hr IVCONT .Q20H DENISSE Last Admin: 11/20/24 06:34 Dose: 50 mls/hr Lorazepam (Lorazepam 0.5 Mg Tablet) 0.5 mg PO Q4H PRN PRN Reason: Anxiety Last Admin: 11/18/24 20:07 Dose: 0.5 mg Magnesium Hydroxide (Milk Of Magnesia 30 Ml Oral.Susp) 30 ml PO DAILY PRN PRN Reason: Constipation Naloxone HCl (Naloxone Hcl 0.4 Mg/Ml Vial) 0.04 mg IVPUSH Q5M PRN PRN Reason: Excessive sedation or RR < 8 Olanzapine (Olanzapine 5 Mg Tablet) 5 mg PO BEDTIME [facility] Last Admin: 11/19/24 20:21 Dose: 5 mg Senna (Sennosides 8.6 Mg Tablet) 8.6 mg PO BEDTIME [facility] Last Admin: 11/19/24 20:21 Dose: 8.6 mg Trazodone HCl (Trazodone Hcl 50 Mg Tablet) 50 mg PO BEDTIME MRX1 PRN PRN Reason: Insomnia Last Admin: 11/18/24 20:07 Dose: 50 mg Venlafaxine HCl (Venlafaxine Hcl Er 150 Mg Cap.Er.24h) 150 mg PO DAILY [facility] Last Admin: 11/19/24 08:11 Dose: 150 mg Vortioxetine (Vortioxetine Hydrobromide 5 Mg Tablet) 5 mg PO DAILY [facility] Last Admin: 11/19/24 08:10 Dose: 5 mg Home Medications ?Medication ?Instructions ?Recorded ?Confirmed ?Last Taken ?Type acetaminophen 500 mg tablet 500 mg PO TID PRN pain 11/09/24 11/09/24 Unknown History (Acetaminophen Extra Strength) docusate sodium 100 mg capsule 100 mg PO BEDTIME constipation 11/09/24 11/09/24 11/07/24 20:00 History (Colace) memantine 7 mg capsule 7 mg PO DAILY 11/09/24 11/09/24 11/08/24 08:00 History sprinkle,extended release 24hr sennosides 8.6 mg tablet (senna) 8.6 mg PO BEDTIME 11/09/24 11/09/24 11/07/24 20:00 History trazodone 50 mg tablet 50 mg PO BEDTIME 11/09/24 11/09/24 Unknown History Exam Height,Weight and Vital Signs: Height 5 ft 3 in Weight 57.323 kg Last Vital Signs Temp 97.7 F 11/20/24 06:22 Pulse 76 11/20/24 06:22 Resp 18 11/20/24 06:22 BP 143/69 H 11/20/24 06:22 Pulse Ox 96 11/20/24 06:22 O2 Del Method Room Air 11/20/24 06:22 O2 Flow Rate 2 11/17/24 08:20 Pertinent Lab Results Pertinent Lab Results: Laboratory Tests 11/08/24 11/08/24 11/10/24 19:58 21:01 07:56 WBC 9.6 8.9 RBC 4.65 5.14 Hgb 14.2 15.9 Hct 41.4 44.8 MCV 89.0 87.2 MCH 30.5 30.9 MCHC 34.3 35.5 H RDW 13.6 13.2 Plt Count 229 240 MPV 10.1 10.7 Immature Gran % (Auto) 0.2 0.3 Neut % (Auto) 64.3 63.1 Lymph % (Auto) 25.6 27.7 [place] % (Auto) 8.8 8.0 Eos % (Auto) 0.6 0.6 Baso % (Auto) 0.5 0.3 Lymph # (Auto) 2.5 2.5 [place] # (Auto) 0.9 0.7 Eos # (Auto) 0.1 0.1 Baso # (Auto) 0.1 0.0 Abs Immat Gran (auto) 0.02 0.03 Absolute Neuts (auto) 6.2 5.6 Absolute Nucleated RBC 0.000 0.000 Nucleated RBC % (auto) 0.0 0.0 Sodium 135 135 Potassium 4.4 4.0 Chloride 99 101 Carbon Dioxide 27 25 Anion Gap 13 13 BUN 19 H 16 Creatinine 0.92 0.78 Estim Creat Clear Calc 38.9 46.0 Estimated GFR 58 > 60 Random Glucose 122 H 87 Estimat Average Glucose 111 Hemoglobin A1c % 5.5 Calcium 9.4 9.3 Magnesium 2.1 Total Bilirubin 0.4 0.8 Direct Bilirubin 0.1 AST 24 25 ALT 26 16 Alkaline Phosphatase 82 69 Total Protein 6.6 6.4 L Albumin 4.3 4.2 Triglycerides 64 Cholesterol 264 H LDL Cholesterol, Calc 154 H HDL Cholesterol 98 Vitamin B12 567 Folate 9.3 TSH 2.75 Urine Color Yellow Urine Appearance Clear Urine pH 5.5 Ur Specific [place] 1.020 Urine Protein Negative Urine Glucose (UA) Negative Urine Ketones Trace Urine Blood Negative Urine Nitrite Negative Ur Leukocyte Esterase Moderate (2+) H Urine RBC 0-2 Urine WBC 21-50 H Ur Squamous Epith Cells 3-5 Urine Bacteria None Seen Hyaline Casts 0-2 Urine Opiates Screen Not Detected Ur Buprenorphine Scrn Not Detected Ur Oxycodone Screen Not Detected Urine Methadone Screen Not Detected Urine Fentanyl Screen Not Detected Ur Barbiturates Screen Not Detected Ur Phencyclidine Scrn Not Detected Ur Amphetamines Screen Not Detected U Benzodiazepines Scrn Not Detected Urine Cocaine Screen Not Detected U Marijuana (THC) Screen Not Detected Ethyl Alcohol < 10 Airway Mallampati Class: II TM Dist: >3cm Neck ROM: Full Heart: rrr Lungs: cta Assessment and Plan Assessment Anesthesia Assessment: Anesthesia Plan Discussed and Chart Reviewed Final Anesthetic Review Family History of Problems with Anesthesia: No History of Problems with Anesthesia: No NPO: Yes ASA Class: III Final Preanesthetic Review: No Changes in Pt Med Stat, Meds/Allgs Chart Reviewed and Consent Obtained/Reviewed Patient Risk: Intermediate Procedure Risk: Intermediate Anesthetic Plan Anesthetic Plan: GA Disposition: Standard PACU
--- NOTE | 2024-11-20 06:56 | MHC.SHP ---
Pre-Procedural Eval Section A - 24 Hr Update-Section A only Date of Service: 11/20/24 The patient is an INPATIENT: Yes Changes since office visit: Yes Patient answered all questions; No Cold of Flu in the past 2 weeks, No New Medical Problems and No Changes in Medication The patient has been examined within 24 hours of the surgical procedure. The History & Physical has been completed within 30 days and I have reviewed it.: Yes Section B - Complete if H&P > 30 days Chief Complaint: severe depression psychosis si Allergies: Allergies Allergy/AdvReac Type Severity Reaction Status Date / Time No Known Allergies Allergy Verified 11/20/24 06:27 [No Known Allergies*] Plan I have reviewed the history and physical and performed a pertinent physical examination on my patient. No changes have occurred unless specified. Time Spent With Patient Time: Total time managing care of this patient today __30__ minutes.
--- NOTE | 2024-11-20 07:59 | HO.ECTPROC ---
ECT Procedure Note Diagnosis/Treatment Date of Service: 11/20/24 Interval Clinical Notes: denies any change in clinical circumstance overnight. remains somewhat confused, believing it is wednesday and then able to say that ECT only occurs on . Time: Total time managing care of this patient today __30__ minutes. ECT Settings Device: THYMATRON DGx Electrode Placement: Right Unilateral Program/Pulse Width: 0.25 Energy Percent: 10 Seizure Duration By EEG (in seconds): 19 Medications Administration General Anesthetic: Etomidate (14) and Propofol (30) Muscle Relaxant: Succinylcholine (80) Ancillary Medications Anti-emetics: Zofran - Pre ECT Airway Management Airway Management: Bag Mask Ventilation Treatment Recommendations No Changes Recommended: No change Notes: initially today stimulus was made with 5% energy and no seizure activity was detected. this was done due to pt's apparent confusion over the past couple of days. as no seizure was forthcoming at that reduced stimulus percentage, setting was returned to the usual 10% power and pt was re-stimulated with successful, if brief, seizure.
[2024-11-20] MEDS: Vortioxetine Hydrobromide 5 MG TABLET PO (11:35)
[2024-11-20] MEDS: Venlafaxine HCl ER 150 MG CAP.ER.24H PO (11:35)
[2024-11-20] MEDS: Aspirin Enteric Coated 81 MG TABLET.DR PO (11:35)
[2024-11-20] MEDS: ARIPiprazole 5 MG TABLET PO (11:35)
[2024-11-20] MEDS: amLODIPine Besylate 5 MG TABLET PO (11:35)
--- NOTE | 2024-11-20 13:33 | P.PNPSI_ITS ---
Subjective Subjective Date of Service: 11/20/24 Reason For Visit: severe depression psychosis si Subjective Notes: Conditional Voluntary Interim History: pt seen in f/u mood has been depressed intermittantly confused ect completed 11/20 rul Medication Compliance: Yes Mental Status Exam Mental Status Exam Narrative: Appearance: wearing hospital gown Behavior: cooperative Psychomotor: Retardation noted Speech: clear, slow low volume TP: linear thought blocking poverty of content TC: Less paranoid preoccupation states feeling bad guilty Mood: Anxious depressed Affect: Constricted SI: none expressed HI: none expressed VH/AH: none expressed Delusions: none expressed Insight/judgment: Impaired Memory/cog: alert, oriented x2. Diagnostics Vital Signs (24Hr): Vital Signs - 24 hr 11/19/24 20:14 11/20/24 05:48 11/20/24 06:22 Temperature 98 F 97.3 F 97.7 F Pulse Rate 97 75 76 Respiratory Rate 17 18 Blood Pressure 127/61 144/67 H 143/69 H Pulse Oximetry 93 96 96 Oxygen Delivery Method Room Air Room Air Room Air Oxygen Flow Rate 11/20/24 07:34 11/20/24 07:39 11/20/24 07:44 Temperature 99.2 F Pulse Rate 79 63 68 Respiratory Rate 16 17 17 Blood Pressure 146/70 H 142/70 H 121/62 Pulse Oximetry 100 95 98 Oxygen Delivery Method Nasal Cannula Nasal Cannula Nasal Cannula Oxygen Flow Rate 2 2 2 11/20/24 07:49 11/20/24 08:05 11/20/24 09:38 Temperature 97.6 F 97.2 F Pulse Rate 63 77 71 Respiratory Rate 17 17 18 Blood Pressure 117/65 136/69 135/65 Pulse Oximetry 95 96 97 Oxygen Delivery Method Room Air Room Air Room Air Oxygen Flow Rate BMI result Body Mass Index 22.4 Labs 11/10/24 07:56 11/10/24 07:56 Medications Medications Current Medications Acetaminophen (Acetaminophen 325 Mg Tablet) 650 mg PO Q6H PRN PRN Reason: Headache/Pain, Scale 1-10 Al Hydroxide/Mg Hydroxide (Magnesium Hydrox/Alum Hydrox 30 Ml Oral.Susp) 30 ml PO Q6H PRN PRN Reason: Heartburn/Nausea Amlodipine Besylate (Amlodipine Besylate 5 Mg Tablet) 5 mg PO DAILY [facility]; Protocol Last Admin: 11/20/24 11:35 Dose: 5 mg Aripiprazole (Aripiprazole 5 Mg Tablet) 5 mg PO DAILY [facility] Last Admin: 11/20/24 11:35 Dose: 5 mg Aspirin (Aspirin Enteric Coated 81 Mg Tablet.Dr) 81 mg PO DAILY [facility] Last Admin: 11/20/24 11:35 Dose: 81 mg Docusate Sodium (Docusate Sodium 100 Mg Capsule) 100 mg PO BEDTIME [facility] Last Admin: 11/19/24 20:21 Dose: 100 mg Lorazepam (Lorazepam 0.5 Mg Tablet) 0.5 mg PO Q4H PRN PRN Reason: Anxiety Last Admin: 11/18/24 20:07 Dose: 0.5 mg Magnesium Hydroxide (Milk Of Magnesia 30 Ml Oral.Susp) 30 ml PO DAILY PRN PRN Reason: Constipation Olanzapine (Olanzapine 5 Mg Tablet) 5 mg PO BEDTIME [facility] Last Admin: 11/19/24 20:21 Dose: 5 mg Senna (Sennosides 8.6 Mg Tablet) 8.6 mg PO BEDTIME [facility] Last Admin: 11/19/24 20:21 Dose: 8.6 mg Trazodone HCl (Trazodone Hcl 50 Mg Tablet) 50 mg PO BEDTIME MRX1 PRN PRN Reason: Insomnia Last Admin: 11/18/24 20:07 Dose: 50 mg Venlafaxine HCl (Venlafaxine Hcl Er 150 Mg Cap.Er.24h) 150 mg PO DAILY [facility] Last Admin: 11/20/24 11:35 Dose: 150 mg Vortioxetine (Vortioxetine Hydrobromide 5 Mg Tablet) 5 mg PO DAILY [facility] Last Admin: 11/20/24 11:35 Dose: 5 mg Allergies Allergies Allergy/AdvReac Type Severity Reaction Status Date / Time No Known Allergies Allergy Verified 11/20/24 06:27 [No Known Allergies*] Assessment & Plan Assessment & Plan (1) Dementia, vascular: Status: Acute Code(s): F01.50 - Vascular dementia, unspecified severity, without behavioral disturbance, psychotic disturbance, mood disturbance, and anxiety Assessment and Plan: Mild dementia probably related to age and extensive microvascular white matter disease (2) Parkinsonism: Status: Acute Code(s): G20.C - Parkinsonism, unspecified Assessment and Plan: 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 Recom.: Review the necessity of any anti- dopaminergic drugs and their dosages for her psychiatric needs. OP f/u with Dr. Hensley. (3) Major depressive disorder, recurrent, severe with psychotic features: Status: Acute Code(s): F33.3 - Major depressive disorder, recurrent, severe with psychotic symptoms Plan The patient is a middle-aged female with a past history of major depressive disorder who historically did very well on ECT and she was receiving ECT maintenance. She recently relapsed in her depressive symptoms and needed to be admitted for treatment due to suicidal ideation. 11/11 remains depressed; agrees with plan for ECT; says ECT has helped in the past but was not sure if subsequent ECT trials were effective 11/13: c/o anxiety, ativan 0.5 PRN ordered. otherwise continue current mgmt. PMR. 11/14: slightly more spontaneous today. seen by neuro. continue current mgmt. Plan 1. The patient is able to contract for safety so we are going to place her on 15 minute checks. 2. Follow-up with orthopedic team. 3. Referral for ECT ECT restarted, the patient improved after the 1st treatment. 4. Continue with same antidepressants. 11/15/24 refused ect start olanzapine encourage ect 11/17/2024 Continue plan of care Trintellix olanzapine started 11/18: ECT #2 completed 11/17. remains very slowed with paucity of thought. continue current mgmt. 11/19: appears confused, not oriented to day. ECT #3 tomorrow, T/C decreasing stimulus dose. 11/20 hold ect to 2 x wk trintelix olanzapine Reason for continued inpatient stay Substantial Risk for: harm to self, inability to function and rapid decompensation Time Spent With Patient Time: Total time managing care of this patient today ____ minutes.
[2024-11-20] MEDS: OLANZapine 5 MG TABLET PO (20:09)
[2024-11-20] MEDS: Sennosides 8.6 MG TABLET PO (20:09)
[2024-11-20] MEDS: Docusate Sodium 100 MG CAPSULE PO (20:09)
[2024-11-21 08:35] VITALS: BP 157/85; PULSE 91; RESP 17; TEMP 36.4; O2SAT 96
[2024-11-21 08:36] VITALS: BP 157/85
[2024-11-21] MEDS: amLODIPine Besylate 5 MG TABLET PO (08:36)
[2024-11-21] MEDS: Vortioxetine Hydrobromide 5 MG TABLET PO (08:36)
[2024-11-21] MEDS: Venlafaxine HCl ER 150 MG CAP.ER.24H PO (08:36)
[2024-11-21] MEDS: ARIPiprazole 5 MG TABLET PO (08:36)
[2024-11-21] MEDS: Aspirin Enteric Coated 81 MG TABLET.DR PO (08:36)
[2024-11-21 12:42] LABS: Appearance Urine Clear; Color Urine Yellow; Glucose Urine UA Negative (Negative); Leukocyte Esterase Urine Trace (Negative); Nitrite Urine Negative (Negative); PH 5.5 (5.0-9.0); Specific Gravity - Urine 1.015 (1.005-1.025); UMIC TRIGGER UACC YES; Urine Blood Negative (Negative); Urine Ketones Trace mg/dL (Negative); Urine Protein Negative (Neg-Trace)
[2024-11-21 12:44] LABS: Bacteria Urine None Seen (None Seen); Hyaline Casts Urine 0-2 /LPF (0-2); RBC Urine 0-2 /HPF (0-2); Squamous Epithelial Cell Urine 0-2 /HPF (0-2); WBC Urine 0-5 /HPF (0-5)
[2024-11-21 20:00] VITALS: BP 144/73; PULSE 95; RESP 18; TEMP 36.4; O2SAT 96
[2024-11-21] MEDS: OLANZapine 7.5 MG TABLET PO (20:23)
[2024-11-21] MEDS: traZODone HCL 50 MG TABLET PO (20:24)
[2024-11-21] MEDS: Sennosides 8.6 MG TABLET PO (20:24)
[2024-11-21] MEDS: Docusate Sodium 100 MG CAPSULE PO (20:24)
--- NOTE | 2024-11-21 22:05 | HO.PSYCHPN ---
Subjective Subjective Date of Service: 11/21/24 Reason For Visit: severe depression psychosis si Interim History: Patient seen psychiatric follow-up case reviewed with treatment team. [facility] health tomorrow. Case extensively reviewed with son and daughter. Discussed treatment plan patient flat dysphoric odd affect difficulty with short-term memory Medication Compliance: Yes Mental Status Exam Mental Status Exam Narrative: Appearance: wearing hospital gown Behavior: cooperative Psychomotor: Retardation noted Speech: clear, slow low volume TP: linear thought blocking poverty of content TC: Less paranoid preoccupation states feeling bad guilty Mood: Anxious depressed Affect: Constricted SI: none expressed HI: none expressed VH/AH: none expressed Delusions: none expressed Insight/judgment: Impaired Memory/cog: alert, oriented x2. Diagnostics Vital Signs (24Hr): Vital Signs - 24 hr 11/21/24 08:35 11/21/24 08:36 11/21/24 20:00 Temperature 97.5 F 97.5 F Pulse Rate 91 95 Respiratory Rate 17 18 Blood Pressure 157/85 H 157/85 H 144/73 H Pulse Oximetry 96 96 Oxygen Delivery Method Room Air Room Air BMI result Body Mass Index 22.4 Labs 11/10/24 07:56 11/10/24 07:56 Labs: Laboratory Results - last 48 hr 11/21/24 12:30 Urine Color Yellow Urine Appearance Clear Urine pH 5.5 Ur Specific [place] 1.015 Urine Protein Negative Urine Glucose (UA) Negative Urine Ketones Trace Urine Blood Negative Urine Nitrite Negative Ur Leukocyte Esterase Trace H Urine RBC 0-2 Urine WBC 0-5 Ur Squamous Epith Cells 0-2 Urine Bacteria None Seen Hyaline Casts 0-2 Medications Medications Current Medications Acetaminophen (Acetaminophen 325 Mg Tablet) 650 mg PO Q6H PRN PRN Reason: Headache/Pain, Scale 1-10 Al Hydroxide/Mg Hydroxide (Magnesium Hydrox/Alum Hydrox 30 Ml Oral.Susp) 30 ml PO Q6H PRN PRN Reason: Heartburn/Nausea Amlodipine Besylate (Amlodipine Besylate 5 Mg Tablet) 5 mg PO DAILY [facility]; Protocol Last Admin: 11/21/24 08:36 Dose: 5 mg Aripiprazole (Aripiprazole 5 Mg Tablet) 2.5 mg PO DAILY [facility] Aspirin (Aspirin Enteric Coated 81 Mg Tablet.) 81 mg PO DAILY [facility] Last Admin: 11/21/24 08:36 Dose: 81 mg Docusate Sodium (Docusate Sodium 100 Mg Capsule) 100 mg PO BEDTIME [facility] Last Admin: 11/21/24 20:24 Dose: 100 mg Lorazepam (Lorazepam 0.5 Mg Tablet) 0.5 mg PO Q4H PRN PRN Reason: Anxiety Last Admin: 11/18/24 20:07 Dose: 0.5 mg Magnesium Hydroxide (Milk Of Magnesia 30 Ml Oral.Susp) 30 ml PO DAILY PRN PRN Reason: Constipation Olanzapine (Olanzapine 7.5 Mg Tablet) 7.5 mg PO BEDTIME [facility] Last Admin: 11/21/24 20:23 Dose: 7.5 mg Senna (Sennosides 8.6 Mg Tablet) 8.6 mg PO BEDTIME [facility] Last Admin: 11/21/24 20:24 Dose: 8.6 mg Trazodone HCl (Trazodone Hcl 50 Mg Tablet) 50 mg PO BEDTIME MRX1 PRN PRN Reason: Insomnia Last Admin: 11/21/24 20:24 Dose: 50 mg Venlafaxine HCl (Venlafaxine Hcl Er 75 Mg Cap.Er.24h) 75 mg PO DAILY [facility] Vortioxetine (Vortioxetine Hydrobromide 10 Mg Tablet) 10 mg PO DAILY [facility] Allergies Allergies Allergy/AdvReac Type Severity Reaction Status Date / Time No Known Allergies Allergy Verified 11/20/24 06:27 [No Known Allergies*] Assessment & Plan Assessment & Plan (1) Dementia, vascular: Status: Acute Code(s): F01.50 - Vascular dementia, unspecified severity, without behavioral disturbance, psychotic disturbance, mood disturbance, and anxiety Assessment and Plan: Mild dementia probably related to age and extensive microvascular white matter disease (2) Parkinsonism: Status: Acute Code(s): G20.C - Parkinsonism, unspecified Assessment and Plan: 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 Recom.: Review the necessity of any anti- dopaminergic drugs and their dosages for her psychiatric needs. OP f/u with Dr. Hensley. (3) Major depressive disorder, recurrent, severe with psychotic features: Status: Acute Code(s): F33.3 - Major depressive disorder, recurrent, severe with psychotic symptoms Plan The patient is a middle-aged female with a past history of major depressive disorder who historically did very well on ECT and she was receiving ECT maintenance. She recently relapsed in her depressive symptoms and needed to be admitted for treatment due to suicidal ideation. 11/11 remains depressed; agrees with plan for ECT; says ECT has helped in the past but was not sure if subsequent ECT trials were effective 11/13: c/o anxiety, ativan 0.5 PRN ordered. otherwise continue current mgmt. PMR. 11/14: slightly more spontaneous today. seen by neuro. continue current mgmt. Plan 1. The patient is able to contract for safety so we are going to place her on 15 minute checks. 2. Follow-up with orthopedic team. 3. Referral for ECT ECT restarted, the patient improved after the 1st treatment. 4. Continue with same antidepressants. 11/15/24 refused ect start olanzapine encourage ect 11/17/2024 Continue plan of care Trintellix olanzapine started 11/18: ECT #2 completed 11/17. remains very slowed with paucity of thought. continue current mgmt. 11/19: appears confused, not oriented to day. ECT #3 tomorrow, T/C decreasing stimulus dose. 11/20 hold ect to 2 x wk trintelix olanzapine 11/21/24 Monitor response to holding ECT taper Abilify increase olanzapine Trintellix 10 mg patient remains quite depressed intermittently confused psychotically preoccupied Reason for continued inpatient stay Substantial Risk for: inability to function and rapid decompensation Time Spent With Patient Time: 30Total time managing care of this patient today 30____ minutes.
[2024-11-22 08:00] VITALS: PULSE 98; RESP 16; TEMP 36.9; O2SAT 96
[2024-11-22] MEDS: amLODIPine Besylate 5 MG TABLET PO (08:51)
[2024-11-22] MEDS: Vortioxetine Hydrobromide 10 MG TABLET PO (08:52)
[2024-11-22] MEDS: Venlafaxine HCl ER 75 MG CAP.ER.24H PO (08:52)
[2024-11-22] MEDS: Aspirin Enteric Coated 81 MG TABLET.DR PO (08:53)
[2024-11-22] MEDS: ARIPiprazole 5 MG TABLET 2.5 MG PO (08:53)
[2024-11-22 20:00] VITALS: BP 153/79; PULSE 89; RESP 18; TEMP 36.9; O2SAT 95
[2024-11-22] MEDS: OLANZapine 7.5 MG TABLET PO (20:01)
[2024-11-22] MEDS: traZODone HCL 50 MG TABLET PO (20:01)
[2024-11-22] MEDS: Docusate Sodium 100 MG CAPSULE PO (20:01)
[2024-11-22] MEDS: Sennosides 8.6 MG TABLET PO (20:01)
--- NOTE | 2024-11-22 23:38 | HO.PSYCHPN ---
Subjective Subjective Date of Service: 11/22/24 Reason For Visit: severe depression psychosis si Subjective Notes: Conditional Voluntary Healthcare Proxy: Yes Interim History: Patient's ECT held patient flat slowed suspicious of others thought blocking Attending Groups: Intermittent Review of Systems Worsening confusion UA negative Mental Status Exam Mental Status Exam Narrative: Appearance: wearing hospital gown Behavior: cooperative Psychomotor: Retardation noted Speech: clear, slow low volume TP: linear thought blocking poverty of content TC: Less paranoid preoccupation states feeling bad guilty Mood: Anxious depressed Affect: Constricted SI: none expressed HI: none expressed VH/AH: none expressed Delusions: none expressed Insight/judgment: Impaired Memory/cog: alert, oriented x2. Diagnostics Vital Signs (24Hr): Vital Signs - 24 hr 11/22/24 08:00 11/22/24 20:00 Temperature 98.4 F 98.4 F Pulse Rate 98 89 Respiratory Rate 16 18 Blood Pressure 153/79 H Pulse Oximetry 96 95 Oxygen Delivery Method Room Air Room Air BMI result Body Mass Index 22.4 Labs 11/10/24 07:56 11/10/24 07:56 Labs: Laboratory Results - last 48 hr 11/21/24 12:30 Urine Color Yellow Urine Appearance Clear Urine pH 5.5 Ur Specific [place] 1.015 Urine Protein Negative Urine Glucose (UA) Negative Urine Ketones Trace Urine Blood Negative Urine Nitrite Negative Ur Leukocyte Esterase Trace H Urine RBC 0-2 Urine WBC 0-5 Ur Squamous Epith Cells 0-2 Urine Bacteria None Seen Hyaline Casts 0-2 Medications Medications Current Medications Acetaminophen (Acetaminophen 325 Mg Tablet) 650 mg PO Q6H PRN PRN Reason: Headache/Pain, Scale 1-10 Al Hydroxide/Mg Hydroxide (Magnesium Hydrox/Alum Hydrox 30 Ml Oral.Susp) 30 ml PO Q6H PRN PRN Reason: Heartburn/Nausea Amlodipine Besylate (Amlodipine Besylate 5 Mg Tablet) 5 mg PO DAILY [facility]; Protocol Last Admin: 11/22/24 08:51 Dose: 5 mg Aripiprazole (Aripiprazole 5 Mg Tablet) 2.5 mg PO DAILY [facility] Last Admin: 11/22/24 08:53 Dose: 2.5 mg Aspirin (Aspirin Enteric Coated 81 Mg Tablet.Dr) 81 mg PO DAILY [facility] Last Admin: 11/22/24 08:53 Dose: 81 mg Brexpiprazole (Brexpiprazole 1 Mg Tablet) 0.5 mg PO DAILY [facility] Docusate Sodium (Docusate Sodium 100 Mg Capsule) 100 mg PO BEDTIME [facility] Last Admin: 11/22/24 20:01 Dose: 100 mg Lorazepam (Lorazepam 0.5 Mg Tablet) 0.5 mg PO Q4H PRN PRN Reason: Anxiety Last Admin: 11/18/24 20:07 Dose: 0.5 mg Magnesium Hydroxide (Milk Of Magnesia 30 Ml Oral.Susp) 30 ml PO DAILY PRN PRN Reason: Constipation Olanzapine (Olanzapine 7.5 Mg Tablet) 7.5 mg PO BEDTIME [facility] Last Admin: 11/22/24 20:01 Dose: 7.5 mg Senna (Sennosides 8.6 Mg Tablet) 8.6 mg PO BEDTIME [facility] Last Admin: 11/22/24 20:01 Dose: 8.6 mg Trazodone HCl (Trazodone Hcl 50 Mg Tablet) 50 mg PO BEDTIME MRX1 PRN PRN Reason: Insomnia Last Admin: 11/22/24 20:01 Dose: 50 mg Venlafaxine HCl (Venlafaxine Hcl Er 75 Mg Cap.Er.24h) 75 mg PO DAILY [facility] Last Admin: 11/22/24 08:52 Dose: 75 mg Vortioxetine (Vortioxetine Hydrobromide 10 Mg Tablet) 10 mg PO DAILY [facility] Last Admin: 11/22/24 08:52 Dose: 10 mg Allergies Allergies Allergy/AdvReac Type Severity Reaction Status Date / Time No Known Allergies Allergy Verified 11/20/24 06:27 [No Known Allergies*] Assessment & Plan Assessment & Plan (1) Dementia, vascular: Status: Acute Code(s): F01.50 - Vascular dementia, unspecified severity, without behavioral disturbance, psychotic disturbance, mood disturbance, and anxiety Assessment and Plan: Mild dementia probably related to age and extensive microvascular white matter disease (2) Parkinsonism: Status: Acute Code(s): G20.C - Parkinsonism, unspecified Assessment and Plan: 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 Recom.: Review the necessity of any anti- dopaminergic drugs and their dosages for her psychiatric needs. OP f/u with Dr. Hensley. (3) Major depressive disorder, recurrent, severe with psychotic features: Status: Acute Code(s): F33.3 - Major depressive disorder, recurrent, severe with psychotic symptoms Plan The patient is a middle-aged female with a past history of major depressive disorder who historically did very well on ECT and she was receiving ECT maintenance. She recently relapsed in her depressive symptoms and needed to be admitted for treatment due to suicidal ideation. 11/11 remains depressed; agrees with plan for ECT; says ECT has helped in the past but was not sure if subsequent ECT trials were effective 11/13: c/o anxiety, ativan 0.5 PRN ordered. otherwise continue current mgmt. PMR. 11/14: slightly more spontaneous today. seen by neuro. continue current mgmt. Plan 1. The patient is able to contract for safety so we are going to place her on 15 minute checks. 2. Follow-up with orthopedic team. 3. Referral for ECT ECT restarted, the patient improved after the 1st treatment. 4. Continue with same antidepressants. 11/15/24 refused ect start olanzapine encourage ect 11/17/2024 Continue plan of care Trintellix olanzapine started 11/18: ECT #2 completed 11/17. remains very slowed with paucity of thought. continue current mgmt. 11/19: appears confused, not oriented to day. ECT #3 tomorrow, T/C decreasing stimulus dose. 11/20 hold ect to 2 x wk trintelix olanzapine 11/21/24 Monitor response to holding ECT taper Abilify increase olanzapine Trintellix 10 mg patient remains quite depressed intermittently confused psychotically preoccupied 11/22/2024 Start Rexulti taper Abilify Trintellix would try to maintain ECT 2 times a week to limit cognitive difficulty Patient educated on: diagnosis and medication risk/benefits Informed Consent: further education needed Reason for continued inpatient stay Substantial Risk for: harm to self Time Spent With Patient Time: Total time managing care of this patient today ____ minutes.
[2024-11-23 08:00] VITALS: BP 150/70; PULSE 88; RESP 14; TEMP 36.7; O2SAT 98
[2024-11-23] MEDS: Aspirin Enteric Coated 81 MG TABLET.DR PO (08:55)
[2024-11-23] MEDS: Vortioxetine Hydrobromide 10 MG TABLET PO (08:55)
[2024-11-23] MEDS: Venlafaxine HCl ER 75 MG CAP.ER.24H PO (08:55)
[2024-11-23] MEDS: Brexpiprazole 1 MG TABLET 0.5 MG PO (08:55)
[2024-11-23] MEDS: amLODIPine Besylate 5 MG TABLET PO (08:56)
[2024-11-23] MEDS: Docusate Sodium 100 MG CAPSULE PO (20:09)
[2024-11-23] MEDS: Sennosides 8.6 MG TABLET PO (20:09)
[2024-11-23] MEDS: OLANZapine 7.5 MG TABLET PO (20:09)
--- NOTE | 2024-11-23 23:10 | HO.PSYCHPN ---
Subjective Subjective Date of Service: 11/23/24 Reason For Visit: severe depression psychosis si Subjective Notes: Conditional Voluntary Healthcare Proxy: Yes Interim History: Patient seen psychiatric follow-up patient withdrawn depressed some degree of poverty of content slowed mentation. Suspicious of others patient has difficulty with reasoning executive functioning periods of confusion Medication Compliance: Yes Mental Status Exam Mental Status Exam Narrative: Appearance: wearing hospital gown Behavior: cooperative Psychomotor: Retardation noted Speech: clear, slow low volume TP: linear thought blocking poverty of content TC: Less paranoid preoccupation states feeling bad guilty Mood: Anxious depressed Affect: Constricted SI: none expressed HI: none expressed VH/AH: none expressed Delusions: Suspiciousness about staff about treatment Insight/judgment: Impaired Memory/cog: alert, oriented x2. Diagnostics Vital Signs (24Hr): Vital Signs - 24 hr 11/23/24 08:00 Temperature 98.1 F Pulse Rate 88 Respiratory Rate 14 Blood Pressure 150/70 H Pulse Oximetry 98 Oxygen Delivery Method Room Air BMI result Body Mass Index 22.4 Labs 11/10/24 07:56 11/10/24 07:56 Medications Medications Current Medications Acetaminophen (Acetaminophen 325 Mg Tablet) 650 mg PO Q6H PRN PRN Reason: Headache/Pain, Scale 1-10 Al Hydroxide/Mg Hydroxide (Magnesium Hydrox/Alum Hydrox 30 Ml Oral.Susp) 30 ml PO Q6H PRN PRN Reason: Heartburn/Nausea Amlodipine Besylate (Amlodipine Besylate 5 Mg Tablet) 5 mg PO DAILY [facility]; Protocol Last Admin: 11/23/24 08:56 Dose: 5 mg Aspirin (Aspirin Enteric Coated 81 Mg Tablet.Dr) 81 mg PO DAILY [facility] Last Admin: 11/23/24 08:55 Dose: 81 mg Brexpiprazole (Brexpiprazole 1 Mg Tablet) 0.5 mg PO DAILY [facility] Last Admin: 11/23/24 08:55 Dose: 0.5 mg Docusate Sodium (Docusate Sodium 100 Mg Capsule) 100 mg PO BEDTIME [facility] Last Admin: 11/23/24 20:09 Dose: 100 mg Lorazepam (Lorazepam 0.5 Mg Tablet) 0.5 mg PO Q4H PRN PRN Reason: Anxiety Last Admin: 11/18/24 20:07 Dose: 0.5 mg Magnesium Hydroxide (Milk Of Magnesia 30 Ml Oral.Susp) 30 ml PO DAILY PRN PRN Reason: Constipation Olanzapine (Olanzapine 7.5 Mg Tablet) 7.5 mg PO BEDTIME [facility] Last Admin: 11/23/24 20:09 Dose: 7.5 mg Senna (Sennosides 8.6 Mg Tablet) 8.6 mg PO BEDTIME [facility] Last Admin: 11/23/24 20:09 Dose: 8.6 mg Trazodone HCl (Trazodone Hcl 50 Mg Tablet) 50 mg PO BEDTIME MRX1 PRN PRN Reason: Insomnia Last Admin: 11/22/24 20:01 Dose: 50 mg Venlafaxine HCl (Venlafaxine Hcl Er 75 Mg Cap.Er.24h) 75 mg PO DAILY [facility] Last Admin: 11/23/24 08:55 Dose: 75 mg Vortioxetine (Vortioxetine Hydrobromide 10 Mg Tablet) 10 mg PO DAILY [facility] Last Admin: 11/23/24 08:55 Dose: 10 mg Allergies Allergies Allergy/AdvReac Type Severity Reaction Status Date / Time No Known Allergies Allergy Verified 11/20/24 06:27 [No Known Allergies*] Assessment & Plan Assessment & Plan (1) Dementia, vascular: Status: Acute Code(s): F01.50 - Vascular dementia, unspecified severity, without behavioral disturbance, psychotic disturbance, mood disturbance, and anxiety Assessment and Plan: Mild dementia probably related to age and extensive microvascular white matter disease (2) Parkinsonism: Status: Acute Code(s): G20.C - Parkinsonism, unspecified Assessment and Plan: 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 Recom.: Review the necessity of any anti- dopaminergic drugs and their dosages for her psychiatric needs. OP f/u with Dr. Hensley. (3) Major depressive disorder, recurrent, severe with psychotic features: Status: Acute Code(s): F33.3 - Major depressive disorder, recurrent, severe with psychotic symptoms Plan The patient is a middle-aged female with a past history of major depressive disorder who historically did very well on ECT and she was receiving ECT maintenance. She recently relapsed in her depressive symptoms and needed to be admitted for treatment due to suicidal ideation. 11/11 remains depressed; agrees with plan for ECT; says ECT has helped in the past but was not sure if subsequent ECT trials were effective 11/13: c/o anxiety, ativan 0.5 PRN ordered. otherwise continue current mgmt. PMR. 11/14: slightly more spontaneous today. seen by neuro. continue current mgmt. Plan 1. The patient is able to contract for safety so we are going to place her on 15 minute checks. 2. Follow-up with orthopedic team. 3. Referral for ECT ECT restarted, the patient improved after the 1st treatment. 4. Continue with same antidepressants. 11/15/24 refused ect start olanzapine encourage ect 11/17/2024 Continue plan of care Trintellix olanzapine started 11/18: ECT #2 completed 11/17. remains very slowed with paucity of thought. continue current mgmt. 11/19: appears confused, not oriented to day. ECT #3 tomorrow, T/C decreasing stimulus dose. 11/20 hold ect to 2 x wk trintelix olanzapine 11/21/24 Monitor response to holding ECT taper Abilify increase olanzapine Trintellix 10 mg patient remains quite depressed intermittently confused psychotically preoccupied 11/22/2024 Start Rexulti taper Abilify Trintellix would try to maintain ECT 2 times a week to limit cognitive difficulty 11/23/2024 Continue ECT Monitor response monitor for any worsening confusion monitor response to Rexulti Trintellix taper Effexor Reason for continued inpatient stay Substantial Risk for: harm to self, inability to function and rapid decompensation Time Spent With Patient Time: Total time managing care of this patient today ____ minutes.
[2024-11-24] VITALS (11 sets, daily range): BP systolic 129–169; BP diastolic 58–84; PULSE 71–86; RESP 16–18; TEMP 36–36.9; O2SAT 93–99
[2024-11-24] MEDS: Lactated Ringers 1,000 ML 100 ML IVCONT (06:33)
--- NOTE | 2024-11-24 08:22 | MHC.SHP ---
Pre-Procedural Eval Section A - 24 Hr Update-Section A only Date of Service: 11/24/24 The patient is an INPATIENT: Yes Changes since office visit: Yes Changes in Medication and Yes Patient answered all questions; No Cold of Flu in the past 2 weeks and No New Medical Problems The patient has been examined within 24 hours of the surgical procedure. The History & Physical has been completed within 30 days and I have reviewed it.: Yes Section B - Complete if H&P > 30 days Chief Complaint: severe depression psychosis si Allergies: Allergies Allergy/AdvReac Type Severity Reaction Status Date / Time No Known Allergies Allergy Verified 11/20/24 06:27 [No Known Allergies*] Plan I have reviewed the history and physical and performed a pertinent physical examination on my patient. No changes have occurred unless specified. Time Spent With Patient Time: Total time managing care of this patient today ____ minutes.
--- NOTE | 2024-11-24 08:42 | HO.ECTPROC ---
ECT Procedure Note Diagnosis/Treatment Date of Service: 11/24/24 Diagnosis: Major Depressive Disorder Previous ECT Date: 11/20/24 Current Treatment Number: 6 Treatment: Series Interval Clinical Notes: Patient quiet depressed thought blocking poverty of content suspicious. ECT done unilateral pulse with raised to 0.5 10% seizure 50 seconds monitor response. Time: Total time managing care of this patient today ____ minutes. ECT Settings Device: THYMATRON DGx Electrode Placement: Right Unilateral Program/Pulse Width: 0.50 Energy Percent: 10 Seizure Duration By EEG (in seconds): 50 Medications Administration General Anesthetic: Etomidate (14) and Propofol (30) Muscle Relaxant: Succinylcholine (80) Ancillary Medications Anti-emetics: Zofran - Pre ECT Airway Management Airway Management: Bag Mask Ventilation Treatment Recommendations No Changes Recommended: No change Notes: Depending on response consider change back to 0.25 pulse width
--- NOTE | 2024-11-24 09:29 | HO.ANESPROP2 ---
COUNTS INCLUDE 234 BEDS AT THE [facility] Active Problems Active Problems: All Active Problems Pre-op evaluation (Acute) Parkinsonism (Acute) Dementia, vascular (Acute) Major depressive disorder, recurrent, severe with psychotic features (Acute) Depression (Acute) Abnormal finding on EKG (Acute) Major depressive disorder, recurrent severe without psychotic features (Acute) OCD (obsessive compulsive disorder) (Acute) Past Medical History Medical History History of fracture of left ankle OCD (obsessive compulsive disorder) Major depressive disorder, recurrent severe without psychotic features S/P ECT (electroconvulsive therapy) Functional capacity: independent ambulation Patient : No Family History Family History Mother CHF (congestive heart failure) Family history of problems with anesthesia: No Surgical History Surgical History No history of previous surgery History of Problems with Anesthesia: No Social History Social History Household Members: None Housing: Apartment Housing Other:: Long-Term community Do you presently have visiting nurse or other home services: Yes ([employer] [facility]) Patient Tobacco Use Status: Never used Tobacco Smoked in Last 30 Days: No e-Cigarette/Vaping Use: Never Used Use of substances other than those prescribed or required for medical reasons: No Currently Displaying Signs/Symptoms of Drug Intoxication Withdrawal: No Any prior treatment program specific to substance use: No Have you been hit, kicked, punched, or otherwise hurt by someone within the past year? If so, by whom?: No Do you feel safe in your current relationship?: Yes Is there a partner from a previous relationship who is making you feel unsafe now?: No Are you made to feel afraid or neglected: No Are you DNR?: No Advance Directives: No Advance Directives Information Provided: Yes Do you have thoughts of harming others: None Do you have a plan to hurt others: No Plan Recently lost weight without trying: No How much weight loss: Not applicable Eating poorly because of decreased appetite: No Nutrition screen score: 0 Nutrition Risks: No Nutritional Risk Patient : No : No Poor oral hygiene: Yes (I brush, but not very well. ) service: No Sexual orientation: Straight/Heterosexual Meds Allergies Allergy/AdvReac Type Severity Reaction Status Date / Time No Known Allergies Allergy Verified 11/20/24 06:27 [No Known Allergies*] Active Medications: Current Medications Acetaminophen (Acetaminophen 325 Mg Tablet) 650 mg PO Q6H PRN PRN Reason: Headache/Pain, Scale 1-10 Al Hydroxide/Mg Hydroxide (Magnesium Hydrox/Alum Hydrox 30 Ml Oral.Susp) 30 ml PO Q6H PRN PRN Reason: Heartburn/Nausea Amlodipine Besylate (Amlodipine Besylate 5 Mg Tablet) 5 mg PO DAILY [facility]; Protocol Last Admin: 11/23/24 08:56 Dose: 5 mg Aspirin (Aspirin Enteric Coated 81 Mg Tablet.Dr) 81 mg PO DAILY [facility] Last Admin: 11/23/24 08:55 Dose: 81 mg Brexpiprazole (Brexpiprazole 1 Mg Tablet) 0.5 mg PO DAILY [facility] Last Admin: 11/23/24 08:55 Dose: 0.5 mg Docusate Sodium (Docusate Sodium 100 Mg Capsule) 100 mg PO BEDTIME [facility] Last Admin: 11/23/24 20:09 Dose: 100 mg Lactated Ringer's (Lr) 1,000 mls @ 100 mls/hr IVCONT .Q10H [facility] Last Admin: 11/24/24 06:33 Dose: 100 mls/hr Lorazepam (Lorazepam 0.5 Mg Tablet) 0.5 mg PO Q4H PRN PRN Reason: Anxiety Last Admin: 11/18/24 20:07 Dose: 0.5 mg Magnesium Hydroxide (Milk Of Magnesia 30 Ml Oral.Susp) 30 ml PO DAILY PRN PRN Reason: Constipation Olanzapine (Olanzapine 7.5 Mg Tablet) 7.5 mg PO BEDTIME [facility] Last Admin: 11/23/24 20:09 Dose: 7.5 mg Senna (Sennosides 8.6 Mg Tablet) 8.6 mg PO BEDTIME [facility] Last Admin: 11/23/24 20:09 Dose: 8.6 mg Trazodone HCl (Trazodone Hcl 50 Mg Tablet) 50 mg PO BEDTIME MRX1 PRN PRN Reason: Insomnia Last Admin: 11/22/24 20:01 Dose: 50 mg Venlafaxine HCl (Venlafaxine Hcl Er 75 Mg Cap.Er.24h) 75 mg PO DAILY [facility] Last Admin: 11/23/24 08:55 Dose: 75 mg Vortioxetine (Vortioxetine Hydrobromide 10 Mg Tablet) 10 mg PO DAILY [facility] Last Admin: 11/23/24 08:55 Dose: 10 mg Home Medications ?Medication ?Instructions ?Recorded ?Confirmed ?Last Taken ?Type acetaminophen 500 mg tablet 500 mg PO TID PRN pain 11/09/24 11/09/24 Unknown History (Acetaminophen Extra Strength) docusate sodium 100 mg capsule 100 mg PO BEDTIME constipation 11/09/24 11/09/24 11/07/24 20:00 History (Colace) memantine 7 mg capsule 7 mg PO DAILY 11/09/24 11/09/24 11/08/24 08:00 History sprinkle,extended release 24hr sennosides 8.6 mg tablet (senna) 8.6 mg PO BEDTIME 11/09/24 11/09/24 11/07/24 20:00 History trazodone 50 mg tablet 50 mg PO BEDTIME 11/09/24 11/09/24 Unknown History Exam Height,Weight and Vital Signs: Height 5 ft 3 in Weight 57.323 kg Last Vital Signs Temp 98.4 F 11/24/24 08:44 Pulse 78 11/24/24 09:15 Resp 16 11/24/24 09:15 BP 169/84 H 11/24/24 09:15 Pulse Ox 96 11/24/24 09:15 O2 Del Method Nasal Cannula with Capnography 11/24/24 09:15 O2 Flow Rate 2 11/24/24 09:15 Pertinent Lab Results Pertinent Lab Results: Laboratory Tests 11/08/24 11/08/24 11/10/24 19:58 21:01 07:56 WBC 9.6 8.9 RBC 4.65 5.14 Hgb 14.2 15.9 Hct 41.4 44.8 MCV 89.0 87.2 MCH 30.5 30.9 MCHC 34.3 35.5 H RDW 13.6 13.2 Plt Count 229 240 MPV 10.1 10.7 Immature Gran % (Auto) 0.2 0.3 Neut % (Auto) 64.3 63.1 Lymph % (Auto) 25.6 27.7 [place] % (Auto) 8.8 8.0 Eos % (Auto) 0.6 0.6 Baso % (Auto) 0.5 0.3 Lymph # (Auto) 2.5 2.5 [place] # (Auto) 0.9 0.7 Eos # (Auto) 0.1 0.1 Baso # (Auto) 0.1 0.0 Abs Immat Gran (auto) 0.02 0.03 Absolute Neuts (auto) 6.2 5.6 Absolute Nucleated RBC 0.000 0.000 Nucleated RBC % (auto) 0.0 0.0 Sodium 135 135 Potassium 4.4 4.0 Chloride 99 101 Carbon Dioxide 27 25 Anion Gap 13 13 BUN 19 H 16 Creatinine 0.92 0.78 Estim Creat Clear Calc 38.9 46.0 Estimated GFR 58 > 60 Random Glucose 122 H 87 Estimat Average Glucose 111 Hemoglobin A1c % 5.5 Calcium 9.4 9.3 Magnesium 2.1 Total Bilirubin 0.4 0.8 Direct Bilirubin 0.1 AST 24 25 ALT 26 16 Alkaline Phosphatase 82 69 Total Protein 6.6 6.4 L Albumin 4.3 4.2 Triglycerides 64 Cholesterol 264 H LDL Cholesterol, Calc 154 H HDL Cholesterol 98 Vitamin B12 567 Folate 9.3 TSH 2.75 Urine Color Yellow Urine Appearance Clear Urine pH 5.5 Ur Specific [place] 1.020 Urine Protein Negative Urine Glucose (UA) Negative Urine Ketones Trace Urine Blood Negative Urine Nitrite Negative Ur Leukocyte Esterase Moderate (2+) H Urine RBC 0-2 Urine WBC 21-50 H Ur Squamous Epith Cells 3-5 Urine Bacteria None Seen Hyaline Casts 0-2 Urine Opiates Screen Not Detected Ur Buprenorphine Scrn Not Detected Ur Oxycodone Screen Not Detected Urine Methadone Screen Not Detected Urine Fentanyl Screen Not Detected Ur Barbiturates Screen Not Detected Ur Phencyclidine Scrn Not Detected Ur Amphetamines Screen Not Detected U Benzodiazepines Scrn Not Detected Urine Cocaine Screen Not Detected U Marijuana (THC) Screen Not Detected Ethyl Alcohol < 10 11/21/24 12:30 WBC RBC Hgb Hct MCV MCH MCHC RDW Plt Count MPV Immature Gran % (Auto) Neut % (Auto) Lymph % (Auto) [place] % (Auto) Eos % (Auto) Baso % (Auto) Lymph # (Auto) [place] # (Auto) Eos # (Auto) Baso # (Auto) Abs Immat Gran (auto) Absolute Neuts (auto) Absolute Nucleated RBC Nucleated RBC % (auto) Sodium Potassium Chloride Carbon Dioxide Anion Gap BUN Creatinine Estim Creat Clear Calc Estimated GFR Random Glucose Estimat Average Glucose Hemoglobin A1c % Calcium Magnesium Total Bilirubin Direct Bilirubin AST ALT Alkaline Phosphatase Total Protein Albumin Triglycerides Cholesterol LDL Cholesterol, Calc HDL Cholesterol Vitamin B12 Folate TSH Urine Color Yellow Urine Appearance Clear Urine pH 5.5 Ur Specific [place] 1.015 Urine Protein Negative Urine Glucose (UA) Negative Urine Ketones Trace Urine Blood Negative Urine Nitrite Negative Ur Leukocyte Esterase Trace H Urine RBC 0-2 Urine WBC 0-5 Ur Squamous Epith Cells 0-2 Urine Bacteria None Seen Hyaline Casts 0-2 Urine Opiates Screen Ur Buprenorphine Scrn Ur Oxycodone Screen Urine Methadone Screen Urine Fentanyl Screen Ur Barbiturates Screen Ur Phencyclidine Scrn Ur Amphetamines Screen U Benzodiazepines Scrn Urine Cocaine Screen U Marijuana (THC) Screen Ethyl Alcohol Airway Mallampati Class: II TM Dist: >3cm Neck ROM: Full Heart: RRR Lungs: CTA Assessment and Plan Assessment Anesthesia Assessment: Anesthesia Plan Discussed Final Anesthetic Review Family History of Problems with Anesthesia: No History of Problems with Anesthesia: No NPO: Yes ASA Class: III Final Preanesthetic Review: Meds/Allgs Chart Reviewed, Consent Obtained/Reviewed and Anes Risks/Benef Reviewed Patient Risk: Low Procedure Risk: Low Anesthetic Plan Anesthetic Plan: GA Disposition: Standard PACU
--- NOTE | 2024-11-24 09:30 | HO.POSTANES ---
Post Anesthesia Evaluation Post Anesthesia Evaluation Date of Service: 11/24/24 Vital Signs: Vital Signs Temp Pulse Resp BP Pulse Ox O2 Del Method O2 Flow Rate 11/24/24 09:15 78 16 169/84 H 96 Nasal Cannula with ETCO2 2 11/24/24 09:00 73 16 162/58 H 96 Nasal Cannula with ETCO2 2 11/24/24 08:55 86 16 153/76 H 96 Nasal Cannula with ETCO2 2 11/24/24 08:50 72 16 158/64 H 96 Nasal Cannula with ETCO2 2 11/24/24 08:45 73 16 166/81 H 96 Nasal Cannula with ETCO2 2 11/24/24 08:44 98.4 F 86 16 161/81 H 96 Nasal Cannula with ETCO2 11/24/24 06:20 97 F 78 18 156/73 H 98 Room Air 11/24/24 05:28 96.8 F 71 16 159/74 H 99 Anesthesia: General Mental Status: Awake Pain Control: Satisfactory Nausea/Vomiting: None Hydration: Adequate Anesthesia-Related Issues: No Anes. Related Issues
[2024-11-24] MEDS: Brexpiprazole 1 MG TABLET 0.5 MG PO (09:58)
[2024-11-24] MEDS: Aspirin Enteric Coated 81 MG TABLET.DR PO (09:59)
[2024-11-24] MEDS: Vortioxetine Hydrobromide 10 MG TABLET PO (09:59)
[2024-11-24] MEDS: amLODIPine Besylate 5 MG TABLET PO (09:59)
[2024-11-24] MEDS: Venlafaxine HCl ER 75 MG CAP.ER.24H PO (10:00)
[2024-11-24] MEDS: Sennosides 8.6 MG TABLET PO (20:24)
[2024-11-24] MEDS: Docusate Sodium 100 MG CAPSULE PO (20:24)
[2024-11-24] MEDS: OLANZapine 7.5 MG TABLET PO (20:24)
--- NOTE | 2024-11-24 23:20 | P.PNPSI_ITS ---
Subjective Subjective Date of Service: 11/24/24 Reason For Visit: severe depression psychosis si Subjective Notes: Conditional Voluntary Interim History: See ECT note for full information. Patient withdrawn suspicious isolated. Patient's case reviewed Mental Status Exam Mental Status Exam Narrative: Appearance: wearing hospital gown Behavior:fatigued Psychomotor: Retardation noted Speech: clear, slow low volume TP: l thought blocking poverty of content TC: Focused on concerns about the staff medication Mood: Anxious depressed Affect: Constricted SI: none expressed HI: none expressed VH/AH: none expressed Delusions: Suspiciousness about staff about treatment Insight/judgment: Impaired Memory/cog: alert, oriented x2. Diagnostics Vital Signs (24Hr): Vital Signs - 24 hr 11/24/24 05:28 11/24/24 06:20 11/24/24 08:44 Temperature 96.8 F 97 F 98.4 F Pulse Rate 71 78 86 Respiratory Rate 16 18 16 Blood Pressure 159/74 H 156/73 H 161/81 H Pulse Oximetry 99 98 96 Oxygen Delivery Method Room Air Nasal Cannula with ETCO2 Oxygen Flow Rate 11/24/24 08:45 11/24/24 08:50 11/24/24 08:55 Temperature Pulse Rate 73 72 86 Respiratory Rate 16 16 16 Blood Pressure 166/81 H 158/64 H 153/76 H Pulse Oximetry 96 96 96 Oxygen Delivery Method Nasal Cannula with ETCO2 Nasal Cannula with ETCO2 Nasal Cannula with ETCO2 Oxygen Flow Rate 2 2 2 11/24/24 09:00 11/24/24 09:15 11/24/24 09:52 Temperature 97.9 F Pulse Rate 73 78 84 Respiratory Rate 16 16 16 Blood Pressure 162/58 H 169/84 H 138/77 Pulse Oximetry 96 96 Oxygen Delivery Method Nasal Cannula with ETCO2 Nasal Cannula with ETCO2 Oxygen Flow Rate 2 2 11/24/24 09:56 11/24/24 20:00 Temperature 97.9 F 98.1 F Pulse Rate 84 83 Respiratory Rate 16 16 Blood Pressure 138/77 129/67 Pulse Oximetry 95 93 Oxygen Delivery Method Room Air Room Air Oxygen Flow Rate BMI result Body Mass Index 22.4 Labs 11/10/24 07:56 11/10/24 07:56 Medications Medications Current Medications Acetaminophen (Acetaminophen 325 Mg Tablet) 650 mg PO Q6H PRN PRN Reason: Headache/Pain, Scale 1-10 Al Hydroxide/Mg Hydroxide (Magnesium Hydrox/Alum Hydrox 30 Ml Oral.Susp) 30 ml PO Q6H PRN PRN Reason: Heartburn/Nausea Amlodipine Besylate (Amlodipine Besylate 5 Mg Tablet) 5 mg PO DAILY [facility]; Protocol Last Admin: 11/24/24 09:59 Dose: 5 mg Aspirin (Aspirin Enteric Coated 81 Mg Tablet.Dr) 81 mg PO DAILY [facility] Last Admin: 11/24/24 09:59 Dose: 81 mg Brexpiprazole (Brexpiprazole 1 Mg Tablet) 0.5 mg PO DAILY [facility] Last Admin: 11/24/24 09:58 Dose: 0.5 mg Docusate Sodium (Docusate Sodium 100 Mg Capsule) 100 mg PO BEDTIME [facility] Last Admin: 11/24/24 20:24 Dose: 100 mg Lorazepam (Lorazepam 0.5 Mg Tablet) 0.5 mg PO Q4H PRN PRN Reason: Anxiety Last Admin: 11/18/24 20:07 Dose: 0.5 mg Magnesium Hydroxide (Milk Of Magnesia 30 Ml Oral.Susp) 30 ml PO DAILY PRN PRN Reason: Constipation Olanzapine (Olanzapine 7.5 Mg Tablet) 7.5 mg PO BEDTIME [facility] Last Admin: 11/24/24 20:24 Dose: 7.5 mg Senna (Sennosides 8.6 Mg Tablet) 8.6 mg PO BEDTIME [facility] Last Admin: 11/24/24 20:24 Dose: 8.6 mg Trazodone HCl (Trazodone Hcl 50 Mg Tablet) 50 mg PO BEDTIME MRX1 PRN PRN Reason: Insomnia Last Admin: 11/22/24 20:01 Dose: 50 mg Venlafaxine HCl (Venlafaxine Hcl Er 75 Mg Cap.Er.24h) 75 mg PO DAILY [facility] Last Admin: 11/24/24 10:00 Dose: 75 mg Vortioxetine (Vortioxetine Hydrobromide 10 Mg Tablet) 10 mg PO DAILY [facility] Last Admin: 11/24/24 09:59 Dose: 10 mg Allergies Allergies Allergy/AdvReac Type Severity Reaction Status Date / Time No Known Allergies Allergy Verified 11/20/24 06:27 [No Known Allergies*] Assessment & Plan Assessment & Plan (1) Dementia, vascular: Status: Acute Code(s): F01.50 - Vascular dementia, unspecified severity, without behavioral disturbance, psychotic disturbance, mood disturbance, and anxiety Assessment and Plan: Mild dementia probably related to age and extensive microvascular white matter disease (2) Parkinsonism: Status: Acute Code(s): G20.C - Parkinsonism, unspecified Assessment and Plan: 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 Recom.: Review the necessity of any anti- dopaminergic drugs and their dosages for her psychiatric needs. OP f/u with Dr. Hensley. (3) Major depressive disorder, recurrent, severe with psychotic features: Status: Acute Code(s): F33.3 - Major depressive disorder, recurrent, severe with psychotic symptoms Plan The patient is a middle-aged female with a past history of major depressive disorder who historically did very well on ECT and she was receiving ECT maintenance. She recently relapsed in her depressive symptoms and needed to be admitted for treatment due to suicidal ideation. 11/11 remains depressed; agrees with plan for ECT; says ECT has helped in the past but was not sure if subsequent ECT trials were effective 11/13: c/o anxiety, ativan 0.5 PRN ordered. otherwise continue current mgmt. PMR. 11/14: slightly more spontaneous today. seen by neuro. continue current mgmt. Plan 1. The patient is able to contract for safety so we are going to place her on 15 minute checks. 2. Follow-up with orthopedic team. 3. Referral for ECT ECT restarted, the patient improved after the 1st treatment. 4. Continue with same antidepressants. 11/15/24 refused ect start olanzapine encourage ect 11/17/2024 Continue plan of care Trintellix olanzapine started 11/18: ECT #2 completed 11/17. remains very slowed with paucity of thought. continue current mgmt. 11/19: appears confused, not oriented to day. ECT #3 tomorrow, T/C decreasing stimulus dose. 11/20 hold ect to 2 x wk trintelix olanzapine 11/21/24 Monitor response to holding ECT taper Abilify increase olanzapine Trintellix 10 mg patient remains quite depressed intermittently confused psychotically preoccupied 11/22/2024 Start Rexulti taper Abilify Trintellix would try to maintain ECT 2 times a week to limit cognitive difficulty 11/23/2024 Continue ECT Monitor response monitor for any worsening confusion monitor response to Rexulti Trintellix taper Effexor 11/24/2024 Mood depressed thoughts suspicious isolated continue ECT Rexulti Trintellix Reason for continued inpatient stay Substantial Risk for: harm to self, inability to function and rapid decompensation Time Spent With Patient Time: Total time managing care of this patient today ____ minutes.
[2024-11-25 06:44] VITALS: BP 142/73; PULSE 92; RESP 16; TEMP 36.3; O2SAT 98
[2024-11-25 08:00] VITALS: BP 142/68; PULSE 93; RESP 16; TEMP 37.3; O2SAT 98
[2024-11-25] MEDS: Brexpiprazole 1 MG TABLET 0.5 MG PO (08:51)
[2024-11-25] MEDS: Aspirin Enteric Coated 81 MG TABLET.DR PO (08:53)
[2024-11-25] MEDS: Venlafaxine HCl ER 75 MG CAP.ER.24H PO (08:53)
[2024-11-25] MEDS: amLODIPine Besylate 5 MG TABLET PO (08:53)
[2024-11-25] MEDS: Vortioxetine Hydrobromide 10 MG TABLET PO (08:54)
[2024-11-25 10:37] VITALS: BP 118/63; BP 131/60; PULSE 110; PULSE 89
--- NOTE | 2024-11-25 12:54 | HO.PSYCHPN ---
Subjective Subjective Date of Service: 11/25/24 Reason For Visit: severe depression psychosis si Subjective Notes: Conditional Voluntary Interim History: Patient was seen and discussed in rounds today. Records and plans were reviewed. She continues to be anxious and somewhat depressed. Not drinking enough and there is some orthostatic hypotension. Fluids are going to be encouraged. No complaints today. No dizziness. No changes were made Review of Systems Review of Systems Yes all other systems are reviewed and are negative Mental Status Exam Mental Status Exam Narrative: Appearance: wearing hospital gown Behavior:fatigued Psychomotor: Retardation noted Speech: clear, slow low volume TP: l thought blocking poverty of content TC: Focused on concerns about the staff medication Mood: Anxious depressed Affect: Constricted SI: none expressed HI: none expressed VH/AH: none expressed Delusions: Suspiciousness about staff about treatment Insight/judgment: Impaired Memory/cog: alert, oriented x2. Diagnostics Vital Signs (24Hr): Vital Signs - 24 hr 11/24/24 20:00 11/25/24 06:44 11/25/24 08:00 Temperature 98.1 F 97.3 F 99.1 F Pulse Rate 83 92 93 Respiratory Rate 16 16 16 Blood Pressure 129/67 142/73 H 142/68 H Pulse Oximetry 93 98 98 Oxygen Delivery Method Room Air Room Air Room Air 11/25/24 10:37 11/25/24 10:37 Temperature Pulse Rate 89 110 H Respiratory Rate Blood Pressure 131/60 118/63 Pulse Oximetry Oxygen Delivery Method BMI result Body Mass Index 22.4 Labs 11/10/24 07:56 11/10/24 07:56 Medications Medications Current Medications Acetaminophen (Acetaminophen 325 Mg Tablet) 650 mg PO Q6H PRN PRN Reason: Headache/Pain, Scale 1-10 Al Hydroxide/Mg Hydroxide (Magnesium Hydrox/Alum Hydrox 30 Ml Oral.Susp) 30 ml PO Q6H PRN PRN Reason: Heartburn/Nausea Amlodipine Besylate (Amlodipine Besylate 5 Mg Tablet) 5 mg PO DAILY [facility]; Protocol Last Admin: 11/25/24 08:53 Dose: 5 mg Aspirin (Aspirin Enteric Coated 81 Mg Tablet.) 81 mg PO DAILY [facility] Last Admin: 11/25/24 08:53 Dose: 81 mg Brexpiprazole (Brexpiprazole 1 Mg Tablet) 0.5 mg PO DAILY [facility] Last Admin: 11/25/24 08:51 Dose: 0.5 mg Docusate Sodium (Docusate Sodium 100 Mg Capsule) 100 mg PO BEDTIME [facility] Last Admin: 11/24/24 20:24 Dose: 100 mg Lorazepam (Lorazepam 0.5 Mg Tablet) 0.5 mg PO Q4H PRN PRN Reason: Anxiety Last Admin: 11/18/24 20:07 Dose: 0.5 mg Magnesium Hydroxide (Milk Of Magnesia 30 Ml Oral.Susp) 30 ml PO DAILY PRN PRN Reason: Constipation Olanzapine (Olanzapine 7.5 Mg Tablet) 7.5 mg PO BEDTIME [facility] Last Admin: 11/24/24 20:24 Dose: 7.5 mg Senna (Sennosides 8.6 Mg Tablet) 8.6 mg PO BEDTIME [facility] Last Admin: 11/24/24 20:24 Dose: 8.6 mg Trazodone HCl (Trazodone Hcl 50 Mg Tablet) 50 mg PO BEDTIME MRX1 PRN PRN Reason: Insomnia Last Admin: 11/22/24 20:01 Dose: 50 mg Venlafaxine HCl (Venlafaxine Hcl Er 75 Mg Cap.Er.24h) 75 mg PO DAILY [facility] Last Admin: 11/25/24 08:53 Dose: 75 mg Vortioxetine (Vortioxetine Hydrobromide 10 Mg Tablet) 10 mg PO DAILY [facility] Last Admin: 11/25/24 08:54 Dose: 10 mg Allergies Allergies Allergy/AdvReac Type Severity Reaction Status Date / Time No Known Allergies Allergy Verified 11/20/24 06:27 [No Known Allergies*] Assessment & Plan Assessment & Plan (1) Dementia, vascular: Status: Acute Code(s): F01.50 - Vascular dementia, unspecified severity, without behavioral disturbance, psychotic disturbance, mood disturbance, and anxiety Assessment and Plan: Mild dementia probably related to age and extensive microvascular white matter disease (2) Parkinsonism: Status: Acute Code(s): G20.C - Parkinsonism, unspecified Assessment and Plan: 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 Recom.: Review the necessity of any anti- dopaminergic drugs and their dosages for her psychiatric needs. OP f/u with Dr. Hensley. (3) Major depressive disorder, recurrent, severe with psychotic features: Status: Acute Code(s): F33.3 - Major depressive disorder, recurrent, severe with psychotic symptoms Plan The patient is a middle-aged female with a past history of major depressive disorder who historically did very well on ECT and she was receiving ECT maintenance. She recently relapsed in her depressive symptoms and needed to be admitted for treatment due to suicidal ideation. 11/11 remains depressed; agrees with plan for ECT; says ECT has helped in the past but was not sure if subsequent ECT trials were effective 11/13: c/o anxiety, ativan 0.5 PRN ordered. otherwise continue current mgmt. PMR. 11/14: slightly more spontaneous today. seen by neuro. continue current mgmt. Plan 1. The patient is able to contract for safety so we are going to place her on 15 minute checks. 2. Follow-up with orthopedic team. 3. Referral for ECT ECT restarted, the patient improved after the 1st treatment. 4. Continue with same antidepressants. 11/15/24 refused ect start olanzapine encourage ect 11/17/2024 Continue plan of care Trintellix olanzapine started 11/18: ECT #2 completed 11/17. remains very slowed with paucity of thought. continue current mgmt. 11/19: appears confused, not oriented to day. ECT #3 tomorrow, T/C decreasing stimulus dose. 11/20 hold ect to 2 x wk trintelix olanzapine 11/21/24 Monitor response to holding ECT taper Abilify increase olanzapine Trintellix 10 mg patient remains quite depressed intermittently confused psychotically preoccupied 11/22/2024 Start Rexulti taper Abilify Trintellix would try to maintain ECT 2 times a week to limit cognitive difficulty 11/23/2024 Continue ECT Monitor response monitor for any worsening confusion monitor response to Rexulti Trintellix taper Effexor 11/24/2024 Mood depressed thoughts suspicious isolated continue ECT Rexulti Trintellix 11/25: Continue current regimen and plans Reason for continued inpatient stay Substantial Risk for: med/psych decompensation Time Spent With Patient Time: Total time managing care of this patient today ____ minutes.
--- NOTE | 2024-11-25 17:06 | PC.NURSE ---
Came out of room and requested to have a shower which was given
[2024-11-25 20:00] VITALS: BP 138/75; PULSE 81; RESP 16; TEMP 36.6; O2SAT 95
[2024-11-25] MEDS: Docusate Sodium 100 MG CAPSULE PO (20:46)
[2024-11-25] MEDS: Sennosides 8.6 MG TABLET PO (20:47)
[2024-11-25] MEDS: OLANZapine 7.5 MG TABLET PO (20:47)
[2024-11-26 08:00] VITALS: BP 147/81; PULSE 104; RESP 14; TEMP 36.9; O2SAT 94
[2024-11-26] MEDS: Brexpiprazole 1 MG TABLET 0.5 MG PO (08:32)
[2024-11-26] MEDS: Aspirin Enteric Coated 81 MG TABLET.DR PO (08:32)
[2024-11-26] MEDS: amLODIPine Besylate 5 MG TABLET PO (08:32)
[2024-11-26] MEDS: Venlafaxine HCl ER 75 MG CAP.ER.24H PO (08:32)
[2024-11-26] MEDS: Vortioxetine Hydrobromide 10 MG TABLET PO (08:33)
--- NOTE | 2024-11-26 10:44 | P.PNPSI_ITS ---
Subjective Subjective Date of Service: 11/26/24 Reason For Visit: severe depression psychosis si Subjective Notes: Conditional Voluntary Interim History: Patient was seen and discussed in rounds today. Records and plans were reviewed. She has been less anxious. Heart rate was elevated. No dizziness. Eating and sleeping adequately. Blood pressure is very slightly elevated. No changes were made today Review of Systems Review of Systems Yes all other systems are reviewed and are negative Mental Status Exam Mental Status Exam Narrative: Appearance: wearing hospital gown Behavior:fatigued Psychomotor: Retardation noted Speech: clear, slow low volume TP: l thought blocking poverty of content TC: Focused on concerns about the staff medication Mood: Anxious depressed Affect: Constricted SI: none expressed HI: none expressed VH/AH: none expressed Delusions: Suspiciousness about staff about treatment Insight/judgment: Impaired Memory/cog: alert, oriented x2. Diagnostics Vital Signs (24Hr): Vital Signs - 24 hr 11/25/24 20:00 11/26/24 08:00 Temperature 97.8 F 98.4 F Pulse Rate 81 104 H Respiratory Rate 16 14 Blood Pressure 138/75 147/81 H Pulse Oximetry 95 94 Oxygen Delivery Method Room Air Room Air BMI result Body Mass Index 22.4 Labs 11/10/24 07:56 11/10/24 07:56 Medications Medications Current Medications Acetaminophen (Acetaminophen 325 Mg Tablet) 650 mg PO Q6H PRN PRN Reason: Headache/Pain, Scale 1-10 Al Hydroxide/Mg Hydroxide (Magnesium Hydrox/Alum Hydrox 30 Ml Oral.Susp) 30 ml PO Q6H PRN PRN Reason: Heartburn/Nausea Amlodipine Besylate (Amlodipine Besylate 5 Mg Tablet) 5 mg PO DAILY [facility]; Protocol Last Admin: 11/26/24 08:32 Dose: 5 mg Aspirin (Aspirin Enteric Coated 81 Mg Tablet.) 81 mg PO DAILY [facility] Last Admin: 11/26/24 08:32 Dose: 81 mg Brexpiprazole (Brexpiprazole 1 Mg Tablet) 0.5 mg PO DAILY [facility] Last Admin: 11/26/24 08:32 Dose: 0.5 mg Docusate Sodium (Docusate Sodium 100 Mg Capsule) 100 mg PO BEDTIME [facility] Last Admin: 11/25/24 20:46 Dose: 100 mg Magnesium Hydroxide (Milk Of Magnesia 30 Ml Oral.Susp) 30 ml PO DAILY PRN PRN Reason: Constipation Olanzapine (Olanzapine 7.5 Mg Tablet) 7.5 mg PO BEDTIME [facility] Last Admin: 11/25/24 20:47 Dose: 7.5 mg Senna (Sennosides 8.6 Mg Tablet) 8.6 mg PO BEDTIME [facility] Last Admin: 11/25/24 20:47 Dose: 8.6 mg Trazodone HCl (Trazodone Hcl 50 Mg Tablet) 50 mg PO BEDTIME MRX1 PRN PRN Reason: Insomnia Last Admin: 11/22/24 20:01 Dose: 50 mg Venlafaxine HCl (Venlafaxine Hcl Er 75 Mg Cap.Er.24h) 75 mg PO DAILY [facility] Last Admin: 11/26/24 08:32 Dose: 75 mg Vortioxetine (Vortioxetine Hydrobromide 10 Mg Tablet) 10 mg PO DAILY [facility] Last Admin: 11/26/24 08:33 Dose: 10 mg Allergies Allergies Allergy/AdvReac Type Severity Reaction Status Date / Time No Known Allergies Allergy Verified 11/20/24 06:27 [No Known Allergies*] Assessment & Plan Assessment & Plan (1) Dementia, vascular: Status: Acute Code(s): F01.50 - Vascular dementia, unspecified severity, without behavioral disturbance, psychotic disturbance, mood disturbance, and anxiety Assessment and Plan: Mild dementia probably related to age and extensive microvascular white matter disease (2) Parkinsonism: Status: Acute Code(s): G20.C - Parkinsonism, unspecified Assessment and Plan: 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 Recom.: Review the necessity of any anti- dopaminergic drugs and their dosages for her psychiatric needs. OP f/u with Dr. Hensley. (3) Major depressive disorder, recurrent, severe with psychotic features: Status: Acute Code(s): F33.3 - Major depressive disorder, recurrent, severe with psychotic symptoms Plan The patient is a middle-aged female with a past history of major depressive disorder who historically did very well on ECT and she was receiving ECT maintenance. She recently relapsed in her depressive symptoms and needed to be admitted for treatment due to suicidal ideation. 11/11 remains depressed; agrees with plan for ECT; says ECT has helped in the past but was not sure if subsequent ECT trials were effective 11/13: c/o anxiety, ativan 0.5 PRN ordered. otherwise continue current mgmt. PMR. 11/14: slightly more spontaneous today. seen by neuro. continue current mgmt. Plan 1. The patient is able to contract for safety so we are going to place her on 15 minute checks. 2. Follow-up with orthopedic team. 3. Referral for ECT ECT restarted, the patient improved after the 1st treatment. 4. Continue with same antidepressants. 11/15/24 refused ect start olanzapine encourage ect 11/17/2024 Continue plan of care Trintellix olanzapine started 11/18: ECT #2 completed 11/17. remains very slowed with paucity of thought. continue current mgmt. 11/19: appears confused, not oriented to day. ECT #3 tomorrow, T/C decreasing stimulus dose. 11/20 hold ect to 2 x wk trintelix olanzapine 11/21/24 Monitor response to holding ECT taper Abilify increase olanzapine Trintellix 10 mg patient remains quite depressed intermittently confused psychotically preoccupied 11/22/2024 Start Rexulti taper Abilify Trintellix would try to maintain ECT 2 times a week to limit cognitive difficulty 11/23/2024 Continue ECT Monitor response monitor for any worsening confusion monitor response to Rexulti Trintellix taper Effexor 11/24/2024 Mood depressed thoughts suspicious isolated continue ECT Rexulti Trintellix 11/25: Continue current regimen and plans 11/26: Continue current regimen and plans Reason for continued inpatient stay Substantial Risk for: med/psych decompensation Time Spent With Patient Time: Total time managing care of this patient today ____ minutes.
[2024-11-26 20:00] VITALS: BP 141/69; PULSE 83; RESP 18; TEMP 36.4; O2SAT 95
[2024-11-26] MEDS: Sennosides 8.6 MG TABLET PO (20:15)
[2024-11-26] MEDS: OLANZapine 7.5 MG TABLET PO (20:16)
[2024-11-26] MEDS: Docusate Sodium 100 MG CAPSULE PO (20:16)
[2024-11-27] VITALS (10 sets, daily range): BP systolic 131–170; BP diastolic 62–86; PULSE 76–104; RESP 15–18; TEMP 36.1–37.1; O2SAT 93–100
[2024-11-27] MEDS: Lactated Ringers 1,000 ML 100 ML IVCONT (07:15)
--- NOTE | 2024-11-27 07:50 | MHC.SHP ---
Pre-Procedural Eval Section A - 24 Hr Update-Section A only Date of Service: 11/27/24 Changes since office visit: Yes Changes in Medication and Yes Patient answered all questions; No Cold of Flu in the past 2 weeks and No New Medical Problems The patient has been examined within 24 hours of the surgical procedure. The History & Physical has been completed within 30 days and I have reviewed it.: Yes Section B - Complete if H&P > 30 days Chief Complaint: severe depression psychosis si Allergies: Allergies Allergy/AdvReac Type Severity Reaction Status Date / Time No Known Allergies Allergy Verified 11/20/24 06:27 [No Known Allergies*] Plan I have reviewed the history and physical and performed a pertinent physical examination on my patient. No changes have occurred unless specified. Time Spent With Patient Time: Total time managing care of this patient today ____ minutes.
--- NOTE | 2024-11-27 07:51 | HO.ECTPROC ---
ECT Procedure Note Diagnosis/Treatment Date of Service: 11/27/24 Diagnosis: Major Depressive Disorder Previous ECT Date: 11/24/24 Current Treatment Number: 7 Treatment: Series Interval Clinical Notes: pt remains depressed with PI alert knows my name yr month not delerious Time: Total time managing care of this patient today ____ minutes. ECT Settings Device: THYMATRON DGx Electrode Placement: Right Unilateral Program/Pulse Width: 0.50 Energy Percent: 10 Seizure Duration By EEG (in seconds): 61 Medications Administration General Anesthetic: Etomidate (14) Muscle Relaxant: Succinylcholine (80) Ancillary Medications Miscillaneous Medications: Propofol (20) Airway Management Airway Management: Bag Mask Ventilation Treatment Recommendations No Changes Recommended: No change Pt Tolerated Procedure w/o Issue: Yes
--- NOTE | 2024-11-27 07:54 | HO.ANESPROP2 ---
[facility] Active Problems Active Problems: All Active Problems Pre-op evaluation (Acute) Parkinsonism (Acute) Dementia, vascular (Acute) Major depressive disorder, recurrent, severe with psychotic features (Acute) Depression (Acute) Abnormal finding on EKG (Acute) Major depressive disorder, recurrent severe without psychotic features (Acute) OCD (obsessive compulsive disorder) (Acute) Past Medical History Medical History History of fracture of left ankle OCD (obsessive compulsive disorder) Major depressive disorder, recurrent severe without psychotic features S/P ECT (electroconvulsive therapy) Functional capacity: independent ambulation Family History Family History Mother CHF (congestive heart failure) Family history of problems with anesthesia: No Surgical History Surgical History No history of previous surgery History of Problems with Anesthesia: No Social History Social History Household Members: None Housing: Apartment Housing Other:: Alf community Do you presently have visiting nurse or other home services: Yes ([employer] [facility]) Patient Tobacco Use Status: Never used Tobacco Smoked in Last 30 Days: No e-Cigarette/Vaping Use: Never Used Use of substances other than those prescribed or required for medical reasons: No Currently Displaying Signs/Symptoms of Drug Intoxication Withdrawal: No Any prior treatment program specific to substance use: No Have you been hit, kicked, punched, or otherwise hurt by someone within the past year? If so, by whom?: No Do you feel safe in your current relationship?: Yes Is there a partner from a previous relationship who is making you feel unsafe now?: No Are you made to feel afraid or neglected: No Are you DNR?: No Advance Directives: No Advance Directives Information Provided: Yes Do you have thoughts of harming others: None Do you have a plan to hurt others: No Plan Recently lost weight without trying: No How much weight loss: Not applicable Eating poorly because of decreased appetite: No Nutrition screen score: 0 Nutrition Risks: No Nutritional Risk Patient : No : No Poor oral hygiene: Yes (I brush, but not very well. ) service: No Sexual orientation: Straight/Heterosexual Meds Allergies Allergy/AdvReac Type Severity Reaction Status Date / Time No Known Allergies Allergy Verified 11/20/24 06:27 [No Known Allergies*] Active Medications: Current Medications Acetaminophen (Acetaminophen 325 Mg Tablet) 650 mg PO Q6H PRN PRN Reason: Headache/Pain, Scale 1-10 Al Hydroxide/Mg Hydroxide (Magnesium Hydrox/Alum Hydrox 30 Ml Oral.Susp) 30 ml PO Q6H PRN PRN Reason: Heartburn/Nausea Amlodipine Besylate (Amlodipine Besylate 5 Mg Tablet) 5 mg PO DAILY [facility]; Protocol Last Admin: 11/26/24 08:32 Dose: 5 mg Aspirin (Aspirin Enteric Coated 81 Mg Tablet.Dr) 81 mg PO DAILY [facility] Last Admin: 11/26/24 08:32 Dose: 81 mg Brexpiprazole (Brexpiprazole 1 Mg Tablet) 0.5 mg PO DAILY [facility] Last Admin: 11/26/24 08:32 Dose: 0.5 mg Docusate Sodium (Docusate Sodium 100 Mg Capsule) 100 mg PO BEDTIME [facility] Last Admin: 11/26/24 20:16 Dose: 100 mg Lactated Ringer's (Lr) 1,000 mls @ 100 mls/hr IVCONT .Q10H [facility] Last Admin: 11/27/24 07:15 Dose: 100 mls/hr Lorazepam (Lorazepam 0.5 Mg Tablet) 0.5 mg PO Q4H PRN PRN Reason: Anxiety Magnesium Hydroxide (Milk Of Magnesia 30 Ml Oral.Susp) 30 ml PO DAILY PRN PRN Reason: Constipation Olanzapine (Olanzapine 7.5 Mg Tablet) 7.5 mg PO BEDTIME [facility] Last Admin: 11/26/24 20:16 Dose: 7.5 mg Senna (Sennosides 8.6 Mg Tablet) 8.6 mg PO BEDTIME [facility] Last Admin: 11/26/24 20:15 Dose: 8.6 mg Trazodone HCl (Trazodone Hcl 50 Mg Tablet) 50 mg PO BEDTIME MRX1 PRN PRN Reason: Insomnia Last Admin: 11/22/24 20:01 Dose: 50 mg Venlafaxine HCl (Venlafaxine Hcl Er 75 Mg Cap.Er.24h) 75 mg PO DAILY [facility] Last Admin: 11/26/24 08:32 Dose: 75 mg Vortioxetine (Vortioxetine Hydrobromide 10 Mg Tablet) 10 mg PO DAILY [facility] Last Admin: 11/26/24 08:33 Dose: 10 mg Home Medications ?Medication ?Instructions ?Recorded ?Confirmed ?Last Taken ?Type acetaminophen 500 mg tablet 500 mg PO TID PRN pain 11/09/24 11/09/24 Unknown History (Acetaminophen Extra Strength) docusate sodium 100 mg capsule 100 mg PO BEDTIME constipation 11/09/24 11/09/24 11/07/24 20:00 History (Colace) memantine 7 mg capsule 7 mg PO DAILY 11/09/24 11/09/24 11/08/24 08:00 History sprinkle,extended release 24hr sennosides 8.6 mg tablet (senna) 8.6 mg PO BEDTIME 11/09/24 11/09/24 11/07/24 20:00 History trazodone 50 mg tablet 50 mg PO BEDTIME 11/09/24 11/09/24 Unknown History Exam Height,Weight and Vital Signs: Height 5 ft 3 in Weight 57.323 kg Last Vital Signs Temp 97 F 11/27/24 07:03 Pulse 86 11/27/24 07:03 Resp 16 11/27/24 07:03 BP 150/77 H 11/27/24 07:03 Pulse Ox 94 11/27/24 07:03 O2 Del Method Room Air 11/26/24 20:00 O2 Flow Rate 2 11/24/24 09:15 Pertinent Lab Results Pertinent Lab Results: Laboratory Tests 11/08/24 11/08/24 11/10/24 19:58 21:01 07:56 WBC 9.6 8.9 RBC 4.65 5.14 Hgb 14.2 15.9 Hct 41.4 44.8 MCV 89.0 87.2 MCH 30.5 30.9 MCHC 34.3 35.5 H RDW 13.6 13.2 Plt Count 229 240 MPV 10.1 10.7 Immature Gran % (Auto) 0.2 0.3 Neut % (Auto) 64.3 63.1 Lymph % (Auto) 25.6 27.7 [place] % (Auto) 8.8 8.0 Eos % (Auto) 0.6 0.6 Baso % (Auto) 0.5 0.3 Lymph # (Auto) 2.5 2.5 [place] # (Auto) 0.9 0.7 Eos # (Auto) 0.1 0.1 Baso # (Auto) 0.1 0.0 Abs Immat Gran (auto) 0.02 0.03 Absolute Neuts (auto) 6.2 5.6 Absolute Nucleated RBC 0.000 0.000 Nucleated RBC % (auto) 0.0 0.0 Sodium 135 135 Potassium 4.4 4.0 Chloride 99 101 Carbon Dioxide 27 25 Anion Gap 13 13 BUN 19 H 16 Creatinine 0.92 0.78 Estim Creat Clear Calc 38.9 46.0 Estimated GFR 58 > 60 Random Glucose 122 H 87 Estimat Average Glucose 111 Hemoglobin A1c % 5.5 Calcium 9.4 9.3 Magnesium 2.1 Total Bilirubin 0.4 0.8 Direct Bilirubin 0.1 AST 24 25 ALT 26 16 Alkaline Phosphatase 82 69 Total Protein 6.6 6.4 L Albumin 4.3 4.2 Triglycerides 64 Cholesterol 264 H LDL Cholesterol, Calc 154 H HDL Cholesterol 98 Vitamin B12 567 Folate 9.3 TSH 2.75 Urine Color Yellow Urine Appearance Clear Urine pH 5.5 Ur Specific [place] 1.020 Urine Protein Negative Urine Glucose (UA) Negative Urine Ketones Trace Urine Blood Negative Urine Nitrite Negative Ur Leukocyte Esterase Moderate (2+) H Urine RBC 0-2 Urine WBC 21-50 H Ur Squamous Epith Cells 3-5 Urine Bacteria None Seen Hyaline Casts 0-2 Urine Opiates Screen Not Detected Ur Buprenorphine Scrn Not Detected Ur Oxycodone Screen Not Detected Urine Methadone Screen Not Detected Urine Fentanyl Screen Not Detected Ur Barbiturates Screen Not Detected Ur Phencyclidine Scrn Not Detected Ur Amphetamines Screen Not Detected U Benzodiazepines Scrn Not Detected Urine Cocaine Screen Not Detected U Marijuana (THC) Screen Not Detected Ethyl Alcohol < 10 11/21/24 12:30 WBC RBC Hgb Hct MCV MCH MCHC RDW Plt Count MPV Immature Gran % (Auto) Neut % (Auto) Lymph % (Auto) [place] % (Auto) Eos % (Auto) Baso % (Auto) Lymph # (Auto) [place] # (Auto) Eos # (Auto) Baso # (Auto) Abs Immat Gran (auto) Absolute Neuts (auto) Absolute Nucleated RBC Nucleated RBC % (auto) Sodium Potassium Chloride Carbon Dioxide Anion Gap BUN Creatinine Estim Creat Clear Calc Estimated GFR Random Glucose Estimat Average Glucose Hemoglobin A1c % Calcium Magnesium Total Bilirubin Direct Bilirubin AST ALT Alkaline Phosphatase Total Protein Albumin Triglycerides Cholesterol LDL Cholesterol, Calc HDL Cholesterol Vitamin B12 Folate TSH Urine Color Yellow Urine Appearance Clear Urine pH 5.5 Ur Specific [place] 1.015 Urine Protein Negative Urine Glucose (UA) Negative Urine Ketones Trace Urine Blood Negative Urine Nitrite Negative Ur Leukocyte Esterase Trace H Urine RBC 0-2 Urine WBC 0-5 Ur Squamous Epith Cells 0-2 Urine Bacteria None Seen Hyaline Casts 0-2 Urine Opiates Screen Ur Buprenorphine Scrn Ur Oxycodone Screen Urine Methadone Screen Urine Fentanyl Screen Ur Barbiturates Screen Ur Phencyclidine Scrn Ur Amphetamines Screen U Benzodiazepines Scrn Urine Cocaine Screen U Marijuana (THC) Screen Ethyl Alcohol Airway Mallampati Class: II TM Dist: >3cm Neck ROM: Full Loose/Missing/Broken Teeth: No Heart: RRR Lungs: CTA Assessment and Plan Final Anesthetic Review Family History of Problems with Anesthesia: No History of Problems with Anesthesia: No ASA Class: II Patient Risk: Low Procedure Risk: Intermediate Anesthetic Plan Anesthetic Plan: GA
[2024-11-27] MEDS: Venlafaxine HCl ER 75 MG CAP.ER.24H PO (09:31)
[2024-11-27] MEDS: amLODIPine Besylate 5 MG TABLET PO (09:31)
[2024-11-27] MEDS: Aspirin Enteric Coated 81 MG TABLET.DR PO (09:31)
[2024-11-27] MEDS: Brexpiprazole 1 MG TABLET 0.5 MG PO (09:31)
[2024-11-27] MEDS: Vortioxetine Hydrobromide 10 MG TABLET PO (09:33)
--- NOTE | 2024-11-27 11:17 | HO.PSYCHPN ---
Subjective Subjective Date of Service: 11/27/24 Reason For Visit: severe depression psychosis si Subjective Notes: Conditional Voluntary Interim History: Patient seen psychiatric follow-up. ECT completed. Patient withdrawn depressed thought blocking some improvement noted. Pre ECT was alert knows year month place my name floor. Patient on Trintellix Rexulti Medication Compliance: Yes Mental Status Exam Mental Status Exam Narrative: Appearance: wearing hospital gown Behavior:fatigued Psychomotor: Retardation noted Speech: clear, slow low volume TP: l thought blocking poverty of content TC: Focused on concerns about the staff medication Mood: Anxious depressed Affect: Constricted SI: none expressed HI: none expressed VH/AH: none expressed Delusions: Suspiciousness but states less so Insight/judgment: Impaired Memory/cog: alert, oriented Diagnostics Vital Signs (24Hr): Vital Signs - 24 hr 11/26/24 20:00 11/27/24 05:32 11/27/24 07:03 Temperature 97.5 F 98.2 F 97 F Pulse Rate 83 81 86 Respiratory Rate 18 15 16 Blood Pressure 141/69 H 132/62 150/77 H Pulse Oximetry 95 96 94 Oxygen Delivery Method Room Air Oxygen Flow Rate 11/27/24 08:12 11/27/24 08:15 11/27/24 08:20 Temperature 98.6 F Pulse Rate 90 90 78 Respiratory Rate 18 18 18 Blood Pressure 160/73 H 145/77 H 153/77 H Pulse Oximetry 99 93 93 Oxygen Delivery Method Nasal Cannula with ETCO2 Nasal Cannula with ETCO2 Nasal Cannula with ETCO2 Oxygen Flow Rate 2 2 2 11/27/24 08:25 11/27/24 08:40 11/27/24 08:55 Temperature 98.6 F Pulse Rate 80 82 78 Respiratory Rate 18 18 18 Blood Pressure 170/84 H 159/86 H 166/82 H Pulse Oximetry 100 100 100 Oxygen Delivery Method Nasal Cannula with ETCO2 Room Air Room Air Oxygen Flow Rate 2 11/27/24 09:29 Temperature 98.2 F Pulse Rate 76 Respiratory Rate 16 Blood Pressure 154/72 H Pulse Oximetry 98 Oxygen Delivery Method Oxygen Flow Rate BMI result Body Mass Index 22.4 Labs 11/10/24 07:56 11/10/24 07:56 Medications Medications Current Medications Acetaminophen (Acetaminophen 325 Mg Tablet) 650 mg PO Q6H PRN PRN Reason: Headache/Pain, Scale 1-10 Al Hydroxide/Mg Hydroxide (Magnesium Hydrox/Alum Hydrox 30 Ml Oral.Susp) 30 ml PO Q6H PRN PRN Reason: Heartburn/Nausea Amlodipine Besylate (Amlodipine Besylate 5 Mg Tablet) 5 mg PO DAILY [facility]; Protocol Last Admin: 11/27/24 09:31 Dose: 5 mg Aspirin (Aspirin Enteric Coated 81 Mg Tablet.Dr) 81 mg PO DAILY [facility] Last Admin: 11/27/24 09:31 Dose: 81 mg Brexpiprazole (Brexpiprazole 1 Mg Tablet) 0.5 mg PO DAILY [facility] Last Admin: 11/27/24 09:31 Dose: 0.5 mg Docusate Sodium (Docusate Sodium 100 Mg Capsule) 100 mg PO BEDTIME [facility] Last Admin: 11/26/24 20:16 Dose: 100 mg Lorazepam (Lorazepam 0.5 Mg Tablet) 0.5 mg PO Q4H PRN PRN Reason: Anxiety Magnesium Hydroxide (Milk Of Magnesia 30 Ml Oral.Susp) 30 ml PO DAILY PRN PRN Reason: Constipation Olanzapine (Olanzapine 7.5 Mg Tablet) 7.5 mg PO BEDTIME [facility] Last Admin: 11/26/24 20:16 Dose: 7.5 mg Senna (Sennosides 8.6 Mg Tablet) 8.6 mg PO BEDTIME [facility] Last Admin: 11/26/24 20:15 Dose: 8.6 mg Trazodone HCl (Trazodone Hcl 50 Mg Tablet) 50 mg PO BEDTIME MRX1 PRN PRN Reason: Insomnia Last Admin: 11/22/24 20:01 Dose: 50 mg Venlafaxine HCl (Venlafaxine Hcl Er 75 Mg Cap.Er.24h) 75 mg PO DAILY [facility] Last Admin: 11/27/24 09:31 Dose: 75 mg Vortioxetine (Vortioxetine Hydrobromide 10 Mg Tablet) 10 mg PO DAILY [facility] Last Admin: 11/27/24 09:33 Dose: 10 mg Allergies Allergies Allergy/AdvReac Type Severity Reaction Status Date / Time No Known Allergies Allergy Verified 11/20/24 06:27 [No Known Allergies*] Assessment & Plan Assessment & Plan (1) Major depressive disorder, recurrent, severe with psychotic features: Status: Acute Code(s): F33.3 - Major depressive disorder, recurrent, severe with psychotic symptoms (2) Dementia, vascular: Status: Acute Code(s): F01.50 - Vascular dementia, unspecified severity, without behavioral disturbance, psychotic disturbance, mood disturbance, and anxiety Assessment and Plan: Mild dementia probably related to age and extensive microvascular white matter disease (3) Parkinsonism: Status: Acute Code(s): G20.C - Parkinsonism, unspecified Assessment and Plan: 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 Recom.: Review the necessity of any anti- dopaminergic drugs and their dosages for her psychiatric needs. OP f/u with Dr. Hensley. Plan The patient is a middle-aged female with a past history of major depressive disorder who historically did very well on ECT and she was receiving ECT maintenance. She recently relapsed in her depressive symptoms and needed to be admitted for treatment due to suicidal ideation. 11/11 remains depressed; agrees with plan for ECT; says ECT has helped in the past but was not sure if subsequent ECT trials were effective 11/13: c/o anxiety, ativan 0.5 PRN ordered. otherwise continue current mgmt. PMR. 11/14: slightly more spontaneous today. seen by neuro. continue current mgmt. Plan 1. The patient is able to contract for safety so we are going to place her on 15 minute checks. 2. Follow-up with orthopedic team. 3. Referral for ECT ECT restarted, the patient improved after the 1st treatment. 4. Continue with same antidepressants. 11/15/24 refused ect start olanzapine encourage ect 11/17/2024 Continue plan of care Trintellix olanzapine started 11/18: ECT #2 completed 11/17. remains very slowed with paucity of thought. continue current mgmt. 11/19: appears confused, not oriented to day. ECT #3 tomorrow, T/C decreasing stimulus dose. 11/20 hold ect to 2 x wk trintelix olanzapine 11/21/24 Monitor response to holding ECT taper Abilify increase olanzapine Trintellix 10 mg patient remains quite depressed intermittently confused psychotically preoccupied 11/22/2024 Start Rexulti taper Abilify Trintellix would try to maintain ECT 2 times a week to limit cognitive difficulty 11/23/2024 Continue ECT Monitor response monitor for any worsening confusion monitor response to Rexulti Trintellix taper Effexor 11/24/2024 Mood depressed thoughts suspicious isolated continue ECT Rexulti Trintellix 11/25: Continue current regimen and plans 11/26: Continue current regimen and plans 11/27/2024 Continue ECT monitor dosing frequency increase Rexulti as tolerant remains psychotically depressed no active SI Healthcare proxy invoked Informed Consent: further education needed Reason for continued inpatient stay Substantial Risk for: harm to self, inability to function and rapid decompensation Time Spent With Patient Time: Total time managing care of this patient today ____ minutes.
[2024-11-27] MEDS: Sennosides 8.6 MG TABLET PO (20:23)
[2024-11-27] MEDS: Docusate Sodium 100 MG CAPSULE PO (20:23)
[2024-11-27] MEDS: OLANZapine 7.5 MG TABLET PO (20:23)
[2024-11-28 08:00] VITALS: BP 136/78; PULSE 96; RESP 16; TEMP 36.8; O2SAT 95
[2024-11-28] MEDS: amLODIPine Besylate 5 MG TABLET PO (09:29)
[2024-11-28] MEDS: Brexpiprazole 1 MG TABLET 0.5 MG PO (09:29)
[2024-11-28] MEDS: Aspirin Enteric Coated 81 MG TABLET.DR PO (09:29)
[2024-11-28] MEDS: Vortioxetine Hydrobromide 10 MG TABLET PO (09:29)
[2024-11-28] MEDS: Venlafaxine HCl ER 75 MG CAP.ER.24H PO (09:29)
--- NOTE | 2024-11-28 15:59 | P.PNPSI_ITS ---
Subjective Subjective Date of Service: 11/28/24 Reason For Visit: severe depression psychosis si Subjective Notes: Conditional Voluntary Healthcare Proxy: Yes Interim History: Patient seen psychiatric follow-up. Patient seems less depressed but perplexed feels that people are messing with her making writing disappear intentionally doing things quite suspicious needs much reassurance Medication Compliance: Yes Mental Status Exam Mental Status Exam Narrative: Appearance: wearing hospital gown Behavior:fatigued Psychomotor: Retardation noted Speech: clear, slow low volume TP: l thought blocking poverty of content TC: Focused on concerns about people playing tricks on her no delusional guilt Mood: Anxious depressed Affect: Constricted SI: Denied HI: none expressed VH/AH: none expressed Delusions: Suspiciousness Insight/judgment: Impaired Memory/cog: alert, oriented poor working attention Diagnostics Vital Signs (24Hr): Vital Signs - 24 hr 11/27/24 20:00 11/28/24 08:00 Temperature 98.8 F 98.2 F Pulse Rate 104 H 96 Respiratory Rate 16 16 Blood Pressure 131/70 136/78 Pulse Oximetry 96 95 Oxygen Delivery Method Room Air Room Air BMI result Body Mass Index 22.4 Labs 11/10/24 07:56 11/10/24 07:56 Medications Medications Current Medications Acetaminophen (Acetaminophen 325 Mg Tablet) 650 mg PO Q6H PRN PRN Reason: Headache/Pain, Scale 1-10 Al Hydroxide/Mg Hydroxide (Magnesium Hydrox/Alum Hydrox 30 Ml Oral.Susp) 30 ml PO Q6H PRN PRN Reason: Heartburn/Nausea Amlodipine Besylate (Amlodipine Besylate 5 Mg Tablet) 5 mg PO DAILY [facility]; Protocol Last Admin: 11/28/24 09:29 Dose: 5 mg Aspirin (Aspirin Enteric Coated 81 Mg Tablet.Dr) 81 mg PO DAILY [facility] Last Admin: 11/28/24 09:29 Dose: 81 mg Brexpiprazole (Brexpiprazole 1 Mg Tablet) 1 mg PO DAILY [facility] Docusate Sodium (Docusate Sodium 100 Mg Capsule) 100 mg PO BEDTIME [facility] Last Admin: 11/27/24 20:23 Dose: 100 mg Lorazepam (Lorazepam 0.5 Mg Tablet) 0.5 mg PO Q4H PRN PRN Reason: Anxiety Magnesium Hydroxide (Milk Of Magnesia 30 Ml Oral.Susp) 30 ml PO DAILY PRN PRN Reason: Constipation Olanzapine (Olanzapine 7.5 Mg Tablet) 7.5 mg PO BEDTIME [facility] Last Admin: 11/27/24 20:23 Dose: 7.5 mg Senna (Sennosides 8.6 Mg Tablet) 8.6 mg PO BEDTIME [facility] Last Admin: 11/27/24 20:23 Dose: 8.6 mg Trazodone HCl (Trazodone Hcl 50 Mg Tablet) 50 mg PO BEDTIME MRX1 PRN PRN Reason: Insomnia Last Admin: 11/22/24 20:01 Dose: 50 mg Venlafaxine HCl (Venlafaxine Hcl Er 75 Mg Cap.Er.24h) 75 mg PO DAILY [facility] Last Admin: 11/28/24 09:29 Dose: 75 mg Vortioxetine (Vortioxetine Hydrobromide 10 Mg Tablet) 10 mg PO DAILY [facility] Last Admin: 11/28/24 09:29 Dose: 10 mg Allergies Allergies Allergy/AdvReac Type Severity Reaction Status Date / Time No Known Allergies Allergy Verified 11/20/24 06:27 [No Known Allergies*] Assessment & Plan Assessment & Plan (1) Major depressive disorder, recurrent, severe with psychotic features: Status: Acute Code(s): F33.3 - Major depressive disorder, recurrent, severe with psychotic symptoms (2) Dementia, vascular: Status: Acute Code(s): F01.50 - Vascular dementia, unspecified severity, without behavioral disturbance, psychotic disturbance, mood disturbance, and anxiety Assessment and Plan: Mild dementia probably related to age and extensive microvascular white matter disease (3) Parkinsonism: Status: Acute Code(s): G20.C - Parkinsonism, unspecified Assessment and Plan: 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 Recom.: Review the necessity of any anti- dopaminergic drugs and their dosages for her psychiatric needs. OP f/u with Dr. Hensley. Plan The patient is a middle-aged female with a past history of major depressive disorder who historically did very well on ECT and she was receiving ECT maintenance. She recently relapsed in her depressive symptoms and needed to be admitted for treatment due to suicidal ideation. 11/11 remains depressed; agrees with plan for ECT; says ECT has helped in the past but was not sure if subsequent ECT trials were effective 11/13: c/o anxiety, ativan 0.5 PRN ordered. otherwise continue current mgmt. PMR. 11/14: slightly more spontaneous today. seen by neuro. continue current mgmt. Plan 1. The patient is able to contract for safety so we are going to place her on 15 minute checks. 2. Follow-up with orthopedic team. 3. Referral for ECT ECT restarted, the patient improved after the 1st treatment. 4. Continue with same antidepressants. 11/15/24 refused ect start olanzapine encourage ect 11/17/2024 Continue plan of care Trintellix olanzapine started 11/18: ECT #2 completed 11/17. remains very slowed with paucity of thought. continue current mgmt. 11/19: appears confused, not oriented to day. ECT #3 tomorrow, T/C decreasing stimulus dose. 11/20 hold ect to 2 x wk trintelix olanzapine 11/21/24 Monitor response to holding ECT taper Abilify increase olanzapine Trintellix 10 mg patient remains quite depressed intermittently confused psychotically preoccupied 11/22/2024 Start Rexulti taper Abilify Trintellix would try to maintain ECT 2 times a week to limit cognitive difficulty 11/23/2024 Continue ECT Monitor response monitor for any worsening confusion monitor response to Rexulti Trintellix taper Effexor 11/24/2024 Mood depressed thoughts suspicious isolated continue ECT Rexulti Trintellix 11/25: Continue current regimen and plans 11/26: Continue current regimen and plans 11/27/2024 Continue ECT monitor dosing frequency increase Rexulti as tolerant remains psychotically depressed no active SI Healthcare proxy invoked 11/28/2024 Hold ECT for the morning Reason for continued inpatient stay Substantial Risk for: inability to function, rapid decompensation and med/psych decompensation Time Spent With Patient Time: Total time managing care of this patient today ____ minutes.
[2024-11-28 20:00] VITALS: BP 127/60; PULSE 81; RESP 18; TEMP 36.3; O2SAT 97
[2024-11-28] MEDS: traZODone HCL 50 MG TABLET PO (20:25)
[2024-11-28] MEDS: OLANZapine 7.5 MG TABLET PO (20:25)
[2024-11-28] MEDS: Sennosides 8.6 MG TABLET PO (20:25)
[2024-11-28] MEDS: Docusate Sodium 100 MG CAPSULE PO (20:25)
[2024-11-29 08:38] VITALS: BP 136/63; PULSE 99; RESP 18; TEMP 36.4; O2SAT 100
[2024-11-29] MEDS: Vortioxetine Hydrobromide 10 MG TABLET PO (08:39)
[2024-11-29] MEDS: amLODIPine Besylate 5 MG TABLET PO (08:40)
[2024-11-29] MEDS: Venlafaxine HCl ER 75 MG CAP.ER.24H PO (08:40)
[2024-11-29] MEDS: Brexpiprazole 1 MG TABLET PO (08:41)
[2024-11-29] MEDS: Aspirin Enteric Coated 81 MG TABLET.DR PO (08:41)
[2024-11-29 20:00] VITALS: BP 119/59; PULSE 75; RESP 16; TEMP 36.7; O2SAT 93
[2024-11-29] MEDS: Docusate Sodium 100 MG CAPSULE PO (20:34)
[2024-11-29] MEDS: OLANZapine 7.5 MG TABLET PO (20:34)
[2024-11-29] MEDS: Sennosides 8.6 MG TABLET PO (20:34)
--- NOTE | 2024-11-29 22:53 | P.PNPSI_ITS ---
Subjective Subjective Date of Service: 11/29/24 Reason For Visit: severe depression psychosis si Subjective Notes: Conditional Voluntary Healthcare Proxy: Yes Interim History: Patient anxious ruminating paranoia needs much reassurance. Preoccupied that people are playing with her mind trying to manipulate her difficulty with self- care Medication Compliance: Yes Mental Status Exam Mental Status Exam Narrative: Mental Status Exam Narrative: Appearance: Casually dressed odd smile on her face odor noted Behavior: Cooperative repeatedly opening an envelope in closing at saying there things are disappearing psychomotor: Speech: Slowed clear Thought proccess linear but illogical Thought content: Preoccupied that things are being manipulated around her writing is made to disappear Mood: Angry Affect: Constricted SI:denies HI:denies VH/AH:none Delusions: Paranoid concerns regarding people around her Insight/judgment: Impaired difficulty taking in information Memory/cog: Diagnostics Vital Signs (24Hr): Vital Signs - 24 hr 11/29/24 08:38 11/29/24 20:00 Temperature 97.5 F 98.1 F Pulse Rate 99 75 Respiratory Rate 18 16 Blood Pressure 136/63 119/59 L Pulse Oximetry 100 93 Oxygen Delivery Method Room Air Room Air BMI result Body Mass Index 22.4 Labs 11/10/24 07:56 11/10/24 07:56 Medications Medications Current Medications Acetaminophen (Acetaminophen 325 Mg Tablet) 650 mg PO Q6H PRN PRN Reason: Headache/Pain, Scale 1-10 Al Hydroxide/Mg Hydroxide (Magnesium Hydrox/Alum Hydrox 30 Ml Oral.Susp) 30 ml PO Q6H PRN PRN Reason: Heartburn/Nausea Amlodipine Besylate (Amlodipine Besylate 5 Mg Tablet) 5 mg PO DAILY [facility]; Protocol Last Admin: 11/29/24 08:40 Dose: 5 mg Aspirin (Aspirin Enteric Coated 81 Mg Tablet.Dr) 81 mg PO DAILY [facility] Last Admin: 11/29/24 08:41 Dose: 81 mg Brexpiprazole (Brexpiprazole 1 Mg Tablet) 1 mg PO DAILY [facility] Last Admin: 11/29/24 08:41 Dose: 1 mg Docusate Sodium (Docusate Sodium 100 Mg Capsule) 100 mg PO BEDTIME [facility] Last Admin: 11/29/24 20:34 Dose: 100 mg Lorazepam (Lorazepam 0.5 Mg Tablet) 0.5 mg PO Q4H PRN PRN Reason: Anxiety Magnesium Hydroxide (Milk Of Magnesia 30 Ml Oral.Susp) 30 ml PO DAILY PRN PRN Reason: Constipation Olanzapine (Olanzapine 7.5 Mg Tablet) 7.5 mg PO BEDTIME [facility] Last Admin: 11/29/24 20:34 Dose: 7.5 mg Senna (Sennosides 8.6 Mg Tablet) 8.6 mg PO BEDTIME [facility] Last Admin: 11/29/24 20:34 Dose: 8.6 mg Trazodone HCl (Trazodone Hcl 50 Mg Tablet) 50 mg PO BEDTIME MRX1 PRN PRN Reason: Insomnia Last Admin: 11/28/24 20:25 Dose: 50 mg Venlafaxine HCl (Venlafaxine Hcl Er 75 Mg Cap.Er.24h) 75 mg PO DAILY [facility] Last Admin: 11/29/24 08:40 Dose: 75 mg Vortioxetine (Vortioxetine Hydrobromide 10 Mg Tablet) 10 mg PO DAILY [facility] Last Admin: 11/29/24 08:39 Dose: 10 mg Allergies Allergies Allergy/AdvReac Type Severity Reaction Status Date / Time No Known Allergies Allergy Verified 11/20/24 06:27 [No Known Allergies*] Assessment & Plan Assessment & Plan (1) Major depressive disorder, recurrent, severe with psychotic features: Status: Acute Code(s): F33.3 - Major depressive disorder, recurrent, severe with psychotic symptoms (2) Dementia, vascular: Status: Acute Code(s): F01.50 - Vascular dementia, unspecified severity, without behavioral disturbance, psychotic disturbance, mood disturbance, and anxiety Assessment and Plan: Mild dementia probably related to age and extensive microvascular white matter disease (3) Parkinsonism: Status: Acute Code(s): G20.C - Parkinsonism, unspecified Assessment and Plan: 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 Recom.: Review the necessity of any anti- dopaminergic drugs and their dosages for her psychiatric needs. OP f/u with Dr. Hensley. Plan The patient is a middle-aged female with a past history of major depressive disorder who historically did very well on ECT and she was receiving ECT maintenance. She recently relapsed in her depressive symptoms and needed to be admitted for treatment due to suicidal ideation. 11/11 remains depressed; agrees with plan for ECT; says ECT has helped in the past but was not sure if subsequent ECT trials were effective 11/13: c/o anxiety, ativan 0.5 PRN ordered. otherwise continue current mgmt. PMR. 11/14: slightly more spontaneous today. seen by neuro. continue current mgmt. Plan 1. The patient is able to contract for safety so we are going to place her on 15 minute checks. 2. Follow-up with orthopedic team. 3. Referral for ECT ECT restarted, the patient improved after the 1st treatment. 4. Continue with same antidepressants. 11/15/24 refused ect start olanzapine encourage ect 11/17/2024 Continue plan of care Trintellix olanzapine started 11/18: ECT #2 completed 11/17. remains very slowed with paucity of thought. continue current mgmt. 11/19: appears confused, not oriented to day. ECT #3 tomorrow, T/C decreasing stimulus dose. 11/20 hold ect to 2 x wk trintelix olanzapine 11/21/24 Monitor response to holding ECT taper Abilify increase olanzapine Trintellix 10 mg patient remains quite depressed intermittently confused psychotically preoccupied 11/22/2024 Start Rexulti taper Abilify Trintellix would try to maintain ECT 2 times a week to limit cognitive difficulty 11/23/2024 Continue ECT Monitor response monitor for any worsening confusion monitor response to Rexulti Trintellix taper Effexor 11/24/2024 Mood depressed thoughts suspicious isolated continue ECT Rexulti Trintellix 11/25: Continue current regimen and plans 11/26: Continue current regimen and plans 11/27/2024 Continue ECT monitor dosing frequency increase Rexulti as tolerant remains psychotically depressed no active SI Healthcare proxy invoked 11/28/2024 Hold ECT for the morning 11/29/2024 Patient is less depressed but paranoid suspicious difficulty processing information denies SI Increase Rexulti to 1 mg taper effexor continue Trintellix ECT 2 times a week Reason for continued inpatient stay Substantial Risk for: inability to function, rapid decompensation and med/psych decompensation Time Spent With Patient Time: Total time managing care of this patient today ____ minutes.
[2024-11-30 08:55] VITALS: BP 122/96; PULSE 96; RESP 16; TEMP 36.6; O2SAT 96
[2024-11-30] MEDS: Aspirin Enteric Coated 81 MG TABLET.DR PO (08:55)
[2024-11-30 09:55] VITALS: BP 122/96
[2024-11-30] MEDS: Brexpiprazole 1 MG TABLET PO (09:55)
[2024-11-30] MEDS: amLODIPine Besylate 5 MG TABLET PO (09:55)
[2024-11-30] MEDS: Vortioxetine Hydrobromide 10 MG TABLET PO (09:55)
[2024-11-30 20:00] VITALS: BP 146/69; PULSE 85; RESP 18; TEMP 36.3; O2SAT 93
[2024-11-30] MEDS: Docusate Sodium 100 MG CAPSULE PO (20:42)
[2024-11-30] MEDS: OLANZapine 5 MG TABLET PO (20:42)
[2024-11-30] MEDS: Sennosides 8.6 MG TABLET PO (20:43)
--- NOTE | 2024-11-30 22:58 | P.PNPSI_ITS ---
Subjective Subjective Date of Service: 11/30/24 Reason For Visit: severe depression psychosis si Subjective Notes: Conditional Voluntary Healthcare Proxy: Yes Interim History: The patient is suspicious of others less depressed somewhat less disorganized. Somewhat isolated withdrawn states she feels a little bit better Medication Compliance: Yes Side effects from medications: Yes Mental Status Exam Mental Status Exam Narrative: Mental Status Exam Narrative: Appearance: Casually dressed odd smile on her face odor noted Behavior: Cooperative repeatedly opening an envelope in closing at saying there things are disappearing psychomotor: Speech: Slowed clear Thought proccess linear but illogical Thought content: Preoccupied that things are being manipulated around her writing is made to disappear Mood: Angry Affect: Constricted SI:denies HI:denies VH/AH:none Delusions: Paranoid concerns regarding people around her Insight/judgment: Impaired difficulty taking in information Memory/cog: Diagnostics Vital Signs (24Hr): Vital Signs - 24 hr 11/30/24 08:55 11/30/24 09:55 11/30/24 20:00 Temperature 97.9 F 97.3 F Pulse Rate 96 85 Respiratory Rate 16 18 Blood Pressure 122/96 H 122/96 H 146/69 H Pulse Oximetry 96 93 Oxygen Delivery Method Room Air Room Air BMI result Body Mass Index 22.4 Labs 11/10/24 07:56 11/10/24 07:56 Medications Medications Current Medications Acetaminophen (Acetaminophen 325 Mg Tablet) 650 mg PO Q6H PRN PRN Reason: Headache/Pain, Scale 1-10 Al Hydroxide/Mg Hydroxide (Magnesium Hydrox/Alum Hydrox 30 Ml Oral.Susp) 30 ml PO Q6H PRN PRN Reason: Heartburn/Nausea Amlodipine Besylate (Amlodipine Besylate 5 Mg Tablet) 5 mg PO DAILY [facility]; Protocol Last Admin: 11/30/24 09:55 Dose: 5 mg Aspirin (Aspirin Enteric Coated 81 Mg Tablet.) 81 mg PO DAILY [facility] Last Admin: 11/30/24 08:55 Dose: 81 mg Brexpiprazole (Brexpiprazole 1 Mg Tablet) 1 mg PO DAILY [facility] Last Admin: 11/30/24 09:55 Dose: 1 mg Docusate Sodium (Docusate Sodium 100 Mg Capsule) 100 mg PO BEDTIME [facility] Last Admin: 11/30/24 20:42 Dose: 100 mg Lorazepam (Lorazepam 0.5 Mg Tablet) 0.5 mg PO Q4H PRN PRN Reason: Anxiety Magnesium Hydroxide (Milk Of Magnesia 30 Ml Oral.Susp) 30 ml PO DAILY PRN PRN Reason: Constipation Olanzapine (Olanzapine 5 Mg Tablet) 5 mg PO BEDTIME [facility] Last Admin: 11/30/24 20:42 Dose: 5 mg Senna (Sennosides 8.6 Mg Tablet) 8.6 mg PO BEDTIME [facility] Last Admin: 11/30/24 20:43 Dose: 8.6 mg Trazodone HCl (Trazodone Hcl 50 Mg Tablet) 50 mg PO BEDTIME MRX1 PRN PRN Reason: Insomnia Last Admin: 11/28/24 20:25 Dose: 50 mg Venlafaxine HCl (Venlafaxine Hcl Er 37.5 Mg Cap.Er.24h) 37.5 mg PO DAILY [facility] Vortioxetine (Vortioxetine Hydrobromide 10 Mg Tablet) 10 mg PO DAILY [facility] Last Admin: 11/30/24 09:55 Dose: 10 mg Allergies Allergies Allergy/AdvReac Type Severity Reaction Status Date / Time No Known Allergies Allergy Verified 11/20/24 06:27 [No Known Allergies*] Assessment & Plan Assessment & Plan (1) Major depressive disorder, recurrent, severe with psychotic features: Status: Acute Code(s): F33.3 - Major depressive disorder, recurrent, severe with psychotic symptoms (2) Dementia, vascular: Status: Acute Code(s): F01.50 - Vascular dementia, unspecified severity, without behavioral disturbance, psychotic disturbance, mood disturbance, and anxiety Assessment and Plan: Mild dementia probably related to age and extensive microvascular white matter disease (3) Parkinsonism: Status: Acute Code(s): G20.C - Parkinsonism, unspecified Assessment and Plan: 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 Recom.: Review the necessity of any anti- dopaminergic drugs and their dosages for her psychiatric needs. OP f/u with Dr. Hensley. Plan The patient is a middle-aged female with a past history of major depressive disorder who historically did very well on ECT and she was receiving ECT maintenance. She recently relapsed in her depressive symptoms and needed to be admitted for treatment due to suicidal ideation. 11/11 remains depressed; agrees with plan for ECT; says ECT has helped in the past but was not sure if subsequent ECT trials were effective 11/13: c/o anxiety, ativan 0.5 PRN ordered. otherwise continue current mgmt. PMR. 11/14: slightly more spontaneous today. seen by neuro. continue current mgmt. Plan 1. The patient is able to contract for safety so we are going to place her on 15 minute checks. 2. Follow-up with orthopedic team. 3. Referral for ECT ECT restarted, the patient improved after the 1st treatment. 4. Continue with same antidepressants. 11/15/24 refused ect start olanzapine encourage ect 11/17/2024 Continue plan of care Trintellix olanzapine started 11/18: ECT #2 completed 11/17. remains very slowed with paucity of thought. continue current mgmt. 11/19: appears confused, not oriented to day. ECT #3 tomorrow, T/C decreasing stimulus dose. 11/20 hold ect to 2 x wk trintelix olanzapine 11/21/24 Monitor response to holding ECT taper Abilify increase olanzapine Trintellix 10 mg patient remains quite depressed intermittently confused psychotically preoccupied 11/22/2024 Start Rexulti taper Abilify Trintellix would try to maintain ECT 2 times a week to limit cognitive difficulty 11/23/2024 Continue ECT Monitor response monitor for any worsening confusion monitor response to Rexulti Trintellix taper Effexor 11/24/2024 Mood depressed thoughts suspicious isolated continue ECT Rexulti Trintellix 11/25: Continue current regimen and plans 11/26: Continue current regimen and plans 11/27/2024 Continue ECT monitor dosing frequency increase Rexulti as tolerant remains psychotically depressed no active SI Healthcare proxy invoked 11/28/2024 Hold ECT for the morning 11/29/2024 Patient is less depressed but paranoid suspicious difficulty processing information denies SI Increase Rexulti to 1 mg taper effexor continue Trintellix ECT 2 times a week 11/30/2024 ECT in the amRexul ti increased continue Trintellix Reason for continued inpatient stay Substantial Risk for: harm to self, inability to function and rapid decompensation Time Spent With Patient Time: Total time managing care of this patient today ____ minutes.
[2024-12-01] VITALS (9 sets, daily range): BP systolic 126–149; BP diastolic 41–82; PULSE 84–94; RESP 12–18; TEMP 36.3–36.8; O2SAT 92–96
[2024-12-01] MEDS: amLODIPine Besylate 5 MG TABLET PO (07:54)
--- NOTE | 2024-12-01 08:31 | P.CONAN_ITS ---
[facility] Active Problems Active Problems: All Active Problems Pre-op evaluation (Acute) Parkinsonism (Acute) Dementia, vascular (Acute) Major depressive disorder, recurrent, severe with psychotic features (Acute) Depression (Acute) Abnormal finding on EKG (Acute) Major depressive disorder, recurrent severe without psychotic features (Acute) OCD (obsessive compulsive disorder) (Acute) Past Medical History Medical History History of fracture of left ankle OCD (obsessive compulsive disorder) Major depressive disorder, recurrent severe without psychotic features S/P ECT (electroconvulsive therapy) Functional capacity: independent ambulation Family History Family History Mother CHF (congestive heart failure) Family history of problems with anesthesia: No Surgical History Surgical History No history of previous surgery History of Problems with Anesthesia: No Social History Social History Household Members: None Housing: Apartment Housing Other:: [facility] Do you presently have visiting nurse or other home services: Yes ([employer] [facility]) Patient Tobacco Use Status: Never used Tobacco e-Cigarette/Vaping Use: Never Used service: No Sexual orientation: Straight/Heterosexual Meds Allergies Allergy/AdvReac Type Severity Reaction Status Date / Time No Known Allergies Allergy Verified 11/20/24 06:27 [No Known Allergies*] Active Medications: Current Medications Acetaminophen (Acetaminophen 325 Mg Tablet) 650 mg PO Q6H PRN PRN Reason: Headache/Pain, Scale 1-10 Al Hydroxide/Mg Hydroxide (Magnesium Hydrox/Alum Hydrox 30 Ml Oral.Susp) 30 ml PO Q6H PRN PRN Reason: Heartburn/Nausea Amlodipine Besylate (Amlodipine Besylate 5 Mg Tablet) 5 mg PO DAILY [facility]; Protocol Last Admin: 12/01/24 07:54 Dose: 5 mg Aspirin (Aspirin Enteric Coated 81 Mg Tablet.Dr) 81 mg PO DAILY [facility] Last Admin: 11/30/24 08:55 Dose: 81 mg Brexpiprazole (Brexpiprazole 1 Mg Tablet) 1 mg PO DAILY [facility] Last Admin: 11/30/24 09:55 Dose: 1 mg Docusate Sodium (Docusate Sodium 100 Mg Capsule) 100 mg PO BEDTIME [facility] Last Admin: 11/30/24 20:42 Dose: 100 mg Lactated Ringer's (Lr) 1,000 mls @ 100 mls/hr IVCONT .Q10H [facility] Lactated Ringer's (Lr) 1,000 mls @ 50 mls/hr IVCONT .Q20H [facility] Lorazepam (Lorazepam 0.5 Mg Tablet) 0.5 mg PO Q4H PRN PRN Reason: Anxiety Magnesium Hydroxide (Milk Of Magnesia 30 Ml Oral.Susp) 30 ml PO DAILY PRN PRN Reason: Constipation Olanzapine (Olanzapine 5 Mg Tablet) 5 mg PO BEDTIME [facility] Last Admin: 11/30/24 20:42 Dose: 5 mg Senna (Sennosides 8.6 Mg Tablet) 8.6 mg PO BEDTIME [facility] Last Admin: 11/30/24 20:43 Dose: 8.6 mg Trazodone HCl (Trazodone Hcl 50 Mg Tablet) 50 mg PO BEDTIME MRX1 PRN PRN Reason: Insomnia Last Admin: 11/28/24 20:25 Dose: 50 mg Venlafaxine HCl (Venlafaxine Hcl Er 37.5 Mg Cap.Er.24h) 37.5 mg PO DAILY [facility] Vortioxetine (Vortioxetine Hydrobromide 10 Mg Tablet) 10 mg PO DAILY [facility] Last Admin: 11/30/24 09:55 Dose: 10 mg Home Medications ?Medication ?Instructions ?Recorded ?Confirmed ?Last Taken ?Type acetaminophen 500 mg tablet 500 mg PO TID PRN pain 11/09/24 11/09/24 Unknown History (Acetaminophen Extra Strength) docusate sodium 100 mg capsule 100 mg PO BEDTIME constipation 11/09/24 11/09/24 11/07/24 20:00 History (Colace) memantine 7 mg capsule 7 mg PO DAILY 11/09/24 11/09/24 11/08/24 08:00 History sprinkle,extended release 24hr sennosides 8.6 mg tablet (senna) 8.6 mg PO BEDTIME 11/09/24 11/09/24 11/07/24 20:00 History trazodone 50 mg tablet 50 mg PO BEDTIME 11/09/24 11/09/24 Unknown History Exam Height,Weight and Vital Signs: Height 5 ft 3 in Weight 57.323 kg Last Vital Signs Temp 97.6 F 12/01/24 08:22 Pulse 87 05/16/25 08:22 Resp 16 12/01/24 08:22 BP 142/79 H 12/01/24 08:22 Pulse Ox 95 12/01/24 08:22 O2 Del Method Room Air 12/01/24 08:22 O2 Flow Rate 2 11/27/24 08:25 Pertinent Lab Results Pertinent Lab Results: Laboratory Tests 11/08/24 11/08/24 11/10/24 19:58 21:01 07:56 WBC 9.6 8.9 RBC 4.65 5.14 Hgb 14.2 15.9 Hct 41.4 44.8 MCV 89.0 87.2 MCH 30.5 30.9 MCHC 34.3 35.5 H RDW 13.6 13.2 Plt Count 229 240 MPV 10.1 10.7 Immature Gran % (Auto) 0.2 0.3 Neut % (Auto) 64.3 63.1 Lymph % (Auto) 25.6 27.7 [place] % (Auto) 8.8 8.0 Eos % (Auto) 0.6 0.6 Baso % (Auto) 0.5 0.3 Lymph # (Auto) 2.5 2.5 [place] # (Auto) 0.9 0.7 Eos # (Auto) 0.1 0.1 Baso # (Auto) 0.1 0.0 Abs Immat Gran (auto) 0.02 0.03 Absolute Neuts (auto) 6.2 5.6 Absolute Nucleated RBC 0.000 0.000 Nucleated RBC % (auto) 0.0 0.0 Sodium 135 135 Potassium 4.4 4.0 Chloride 99 101 Carbon Dioxide 27 25 Anion Gap 13 13 BUN 19 H 16 Creatinine 0.92 0.78 Estim Creat Clear Calc 38.9 46.0 Estimated GFR 58 > 60 Random Glucose 122 H 87 Estimat Average Glucose 111 Hemoglobin A1c % 5.5 Calcium 9.4 9.3 Magnesium 2.1 Total Bilirubin 0.4 0.8 Direct Bilirubin 0.1 AST 24 25 ALT 26 16 Alkaline Phosphatase 82 69 Total Protein 6.6 6.4 L Albumin 4.3 4.2 Triglycerides 64 Cholesterol 264 H LDL Cholesterol, Calc 154 H HDL Cholesterol 98 Vitamin B12 567 Folate 9.3 TSH 2.75 Urine Color Yellow Urine Appearance Clear Urine pH 5.5 Ur Specific [place] 1.020 Urine Protein Negative Urine Glucose (UA) Negative Urine Ketones Trace Urine Blood Negative Urine Nitrite Negative Ur Leukocyte Esterase Moderate (2+) H Urine RBC 0-2 Urine WBC 21-50 H Ur Squamous Epith Cells 3-5 Urine Bacteria None Seen Hyaline Casts 0-2 Urine Opiates Screen Not Detected Ur Buprenorphine Scrn Not Detected Ur Oxycodone Screen Not Detected Urine Methadone Screen Not Detected Urine Fentanyl Screen Not Detected Ur Barbiturates Screen Not Detected Ur Phencyclidine Scrn Not Detected Ur Amphetamines Screen Not Detected U Benzodiazepines Scrn Not Detected Urine Cocaine Screen Not Detected U Marijuana (THC) Screen Not Detected Ethyl Alcohol < 10 11/21/24 12:30 WBC RBC Hgb Hct MCV MCH MCHC RDW Plt Count MPV Immature Gran % (Auto) Neut % (Auto) Lymph % (Auto) [place] % (Auto) Eos % (Auto) Baso % (Auto) Lymph # (Auto) [place] # (Auto) Eos # (Auto) Baso # (Auto) Abs Immat Gran (auto) Absolute Neuts (auto) Absolute Nucleated RBC Nucleated RBC % (auto) Sodium Potassium Chloride Carbon Dioxide Anion Gap BUN Creatinine Estim Creat Clear Calc Estimated GFR Random Glucose Estimat Average Glucose Hemoglobin A1c % Calcium Magnesium Total Bilirubin Direct Bilirubin AST ALT Alkaline Phosphatase Total Protein Albumin Triglycerides Cholesterol LDL Cholesterol, Calc HDL Cholesterol Vitamin B12 Folate TSH Urine Color Yellow Urine Appearance Clear Urine pH 5.5 Ur Specific [place] 1.015 Urine Protein Negative Urine Glucose (UA) Negative Urine Ketones Trace Urine Blood Negative Urine Nitrite Negative Ur Leukocyte Esterase Trace H Urine RBC 0-2 Urine WBC 0-5 Ur Squamous Epith Cells 0-2 Urine Bacteria None Seen Hyaline Casts 0-2 Urine Opiates Screen Ur Buprenorphine Scrn Ur Oxycodone Screen Urine Methadone Screen Urine Fentanyl Screen Ur Barbiturates Screen Ur Phencyclidine Scrn Ur Amphetamines Screen U Benzodiazepines Scrn Urine Cocaine Screen U Marijuana (THC) Screen Ethyl Alcohol Airway Mallampati Class: II TM Dist: >3cm Neck ROM: Full Heart: rrr Lungs: cta Assessment and Plan Assessment Anesthesia Assessment: Anesthesia Plan Discussed and Chart Reviewed Final Anesthetic Review Family History of Problems with Anesthesia: No History of Problems with Anesthesia: No NPO: Yes ASA Class: III Final Preanesthetic Review: No Changes in Pt Med Stat, Meds/Allgs Chart Reviewed and Consent Obtained/Reviewed Patient Risk: Intermediate Procedure Risk: Intermediate Anesthetic Plan Anesthetic Plan: GA Disposition: Standard PACU
[2024-12-01] MEDS: Lactated Ringers 1,000 ML 100 ML IVCONT (08:32)
--- NOTE | 2024-12-01 09:42 | MHC.SHP ---
Pre-Procedural Eval Section A - 24 Hr Update-Section A only Date of Service: 12/01/24 Changes since office visit: Yes Changes in Medication and Yes Patient answered all questions; No Cold of Flu in the past 2 weeks and No New Medical Problems The patient has been examined within 24 hours of the surgical procedure. The History & Physical has been completed within 30 days and I have reviewed it.: Yes Section B - Complete if H&P > 30 days Chief Complaint: severe depression psychosis si Allergies: Allergies Allergy/AdvReac Type Severity Reaction Status Date / Time No Known Allergies Allergy Verified 11/20/24 06:27 [No Known Allergies*] Plan I have reviewed the history and physical and performed a pertinent physical examination on my patient. No changes have occurred unless specified. Time Spent With Patient Time: Total time managing care of this patient today ____ minutes.
--- NOTE | 2024-12-01 09:42 | HO.ECTPROC ---
ECT Procedure Note Diagnosis/Treatment Date of Service: 12/01/24 Diagnosis: Major Depressive Disorder Previous ECT Date: 11/24/24 Current Treatment Number: 7 Treatment: Series Interval Clinical Notes: pt remains depressed with PI alert knows my name yr month not delerious Time: Total time managing care of this patient today ____ minutes. ECT Settings Device: THYMATRON DGx Electrode Placement: Right Unilateral Program/Pulse Width: 0.50 Energy Percent: 10 Seizure Duration By EEG (in seconds): 44 Medications Administration General Anesthetic: Etomidate (14) Muscle Relaxant: Succinylcholine (80) Ancillary Medications Miscillaneous Medications: Propofol (20) Airway Management Airway Management: Bag Mask Ventilation Treatment Recommendations No Changes Recommended: No change Pt Tolerated Procedure w/o Issue: Yes
[2024-12-01] MEDS: Vortioxetine Hydrobromide 10 MG TABLET PO (12:04)
[2024-12-01] MEDS: Venlafaxine HCl ER 37.5 MG CAP.ER.24H PO (12:04)
[2024-12-01] MEDS: Aspirin Enteric Coated 81 MG TABLET.DR PO (12:04)
[2024-12-01] MEDS: Brexpiprazole 1 MG TABLET PO (12:04)
[2024-12-01] MEDS: OLANZapine 5 MG TABLET PO (20:06)
[2024-12-01] MEDS: Sennosides 8.6 MG TABLET PO (20:06)
[2024-12-01] MEDS: traZODone HCL 50 MG TABLET PO (20:06)
[2024-12-01] MEDS: Docusate Sodium 100 MG CAPSULE PO (20:06)
--- NOTE | 2024-12-01 23:30 | HO.PSYCHPN ---
Subjective Subjective Date of Service: 11/24/24 Reason For Visit: severe depression psychosis si Subjective Notes: Conditional Voluntary Interim History: Patient with perhaps at best a partial response at this point. Odd affect somewhat withdrawn had ECT without difficulty this morning Mental Status Exam Mental Status Exam Narrative: Mental Status Exam Narrative: Appearance: Casually dressed odd smile on her face odor noted Behavior: Cooperative repeatedly opening an envelope in closing at saying there things are disappearing psychomotor: Speech: Slowed clear Thought proccess linear but illogical Thought content: Preoccupied that things are being manipulated around her writing is made to disappear Mood: Angry Affect: Constricted SI:denies HI:denies VH/AH:none Delusions: Paranoid concerns regarding people around her Insight/judgment: Impaired difficulty taking in information Memory/cog: Diagnostics Vital Signs (24Hr): Vital Signs - 24 hr 12/01/24 07:51 12/01/24 08:22 12/01/24 10:12 Temperature 97.4 F 97.6 F 97.5 F Pulse Rate 93 87 84 Respiratory Rate 14 16 15 Blood Pressure 137/82 142/79 H 149/41 H Pulse Oximetry 95 95 92 Oxygen Delivery Method Room Air Room Air 12/01/24 10:17 12/01/24 10:22 12/01/24 10:27 Temperature Pulse Rate 85 84 87 Respiratory Rate 15 15 16 Blood Pressure 143/72 H 136/70 146/71 H Pulse Oximetry 96 96 95 Oxygen Delivery Method Room Air Room Air Room Air 12/01/24 10:42 12/01/24 11:31 12/01/24 20:00 Temperature 97.5 F 98.2 F 98 F Pulse Rate 90 84 94 Respiratory Rate 16 12 18 Blood Pressure 144/73 H 136/64 126/60 Pulse Oximetry 95 94 93 Oxygen Delivery Method Room Air Room Air BMI result Body Mass Index 22.4 Labs 11/10/24 07:56 11/10/24 07:56 Medications Medications Current Medications Acetaminophen (Acetaminophen 325 Mg Tablet) 650 mg PO Q6H PRN PRN Reason: Headache/Pain, Scale 1-10 Al Hydroxide/Mg Hydroxide (Magnesium Hydrox/Alum Hydrox 30 Ml Oral.Susp) 30 ml PO Q6H PRN PRN Reason: Heartburn/Nausea Amlodipine Besylate (Amlodipine Besylate 5 Mg Tablet) 5 mg PO DAILY [facility]; Protocol Last Admin: 12/01/24 07:54 Dose: 5 mg Aspirin (Aspirin Enteric Coated 81 Mg Tablet.Dr) 81 mg PO DAILY [facility] Last Admin: 12/01/24 12:04 Dose: 81 mg Brexpiprazole (Brexpiprazole 1 Mg Tablet) 1 mg PO DAILY [facility] Last Admin: 12/01/24 12:04 Dose: 1 mg Docusate Sodium (Docusate Sodium 100 Mg Capsule) 100 mg PO BEDTIME [facility] Last Admin: 12/01/24 20:06 Dose: 100 mg Lorazepam (Lorazepam 0.5 Mg Tablet) 0.5 mg PO Q4H PRN PRN Reason: Anxiety Magnesium Hydroxide (Milk Of Magnesia 30 Ml Oral.Susp) 30 ml PO DAILY PRN PRN Reason: Constipation Naloxone HCl (Naloxone Hcl 0.4 Mg/Ml Vial) 0.04 mg IVPUSH Q5M PRN PRN Reason: Excessive sedation or RR < 8 Olanzapine (Olanzapine 5 Mg Tablet) 5 mg PO BEDTIME [facility] Last Admin: 12/01/24 20:06 Dose: 5 mg Senna (Sennosides 8.6 Mg Tablet) 8.6 mg PO BEDTIME [facility] Last Admin: 12/01/24 20:06 Dose: 8.6 mg Trazodone HCl (Trazodone Hcl 50 Mg Tablet) 50 mg PO BEDTIME MRX1 PRN PRN Reason: Insomnia Last Admin: 12/01/24 20:06 Dose: 50 mg Venlafaxine HCl (Venlafaxine Hcl Er 37.5 Mg Cap.Er.24h) 37.5 mg PO DAILY [facility] Last Admin: 12/01/24 12:04 Dose: 37.5 mg Vortioxetine (Vortioxetine Hydrobromide 10 Mg Tablet) 10 mg PO DAILY [facility] Last Admin: 12/01/24 12:04 Dose: 10 mg Allergies Allergies Allergy/AdvReac Type Severity Reaction Status Date / Time No Known Allergies Allergy Verified 11/20/24 06:27 [No Known Allergies*] Assessment & Plan Assessment & Plan (1) Major depressive disorder, recurrent, severe with psychotic features: Status: Acute Code(s): F33.3 - Major depressive disorder, recurrent, severe with psychotic symptoms (2) Dementia, vascular: Status: Acute Code(s): F01.50 - Vascular dementia, unspecified severity, without behavioral disturbance, psychotic disturbance, mood disturbance, and anxiety Assessment and Plan: Mild dementia probably related to age and extensive microvascular white matter disease (3) Parkinsonism: Status: Acute Code(s): G20.C - Parkinsonism, unspecified Assessment and Plan: 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 Recom.: Review the necessity of any anti- dopaminergic drugs and their dosages for her psychiatric needs. OP f/u with Dr. Hensley. Plan The patient is a middle-aged female with a past history of major depressive disorder who historically did very well on ECT and she was receiving ECT maintenance. She recently relapsed in her depressive symptoms and needed to be admitted for treatment due to suicidal ideation. 11/11 remains depressed; agrees with plan for ECT; says ECT has helped in the past but was not sure if subsequent ECT trials were effective 11/13: c/o anxiety, ativan 0.5 PRN ordered. otherwise continue current mgmt. PMR. 11/14: slightly more spontaneous today. seen by neuro. continue current mgmt. Plan 1. The patient is able to contract for safety so we are going to place her on 15 minute checks. 2. Follow-up with orthopedic team. 3. Referral for ECT ECT restarted, the patient improved after the 1st treatment. 4. Continue with same antidepressants. 11/15/24 refused ect start olanzapine encourage ect 11/17/2024 Continue plan of care Trintellix olanzapine started 11/18: ECT #2 completed 11/17. remains very slowed with paucity of thought. continue current mgmt. 11/19: appears confused, not oriented to day. ECT #3 tomorrow, T/C decreasing stimulus dose. 11/20 hold ect to 2 x wk trintelix olanzapine 11/21/24 Monitor response to holding ECT taper Abilify increase olanzapine Trintellix 10 mg patient remains quite depressed intermittently confused psychotically preoccupied 11/22/2024 Start Rexulti taper Abilify Trintellix would try to maintain ECT 2 times a week to limit cognitive difficulty 11/23/2024 Continue ECT Monitor response monitor for any worsening confusion monitor response to Rexulti Trintellix taper Effexor 11/24/2024 Mood depressed thoughts suspicious isolated continue ECT Rexulti Trintellix 11/25: Continue current regimen and plans 11/26: Continue current regimen and plans 11/27/2024 Continue ECT monitor dosing frequency increase Rexulti as tolerant remains psychotically depressed no active SI Healthcare proxy invoked 11/28/2024 Hold ECT for the morning 11/29/2024 Patient is less depressed but paranoid suspicious difficulty processing information denies SI Increase Rexulti to 1 mg taper effexor continue Trintellix ECT 2 times a week 11/30/2024 ECT in the amRexul ti increased continue Trintellix 12/01/2024 Continue ECT Wednesday and Wednesday patient did not need 12 ECT in the past eventually changed to bifrontal. Continue Rexulti increase his needed Reason for continued inpatient stay Substantial Risk for: harm to self, inability to function and rapid decompensation Time Spent With Patient Time: Total time managing care of this patient today ____ minutes.
--- NOTE | 2024-12-02 07:46 | P.PNPSI_ITS ---
Subjective Subjective Date of Service: 12/02/24 Reason For Visit: severe depression psychosis si Subjective Notes: Conditional Voluntary Healthcare Proxy: Yes Interim History: met with patient. Discussed with Nursing. Discussed with Dr. Chambers. 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 Patient presents as very paranoid and delusional and does appear internally preoccupied. Psychosis is driving anxiety symptoms. Also endorses feeling depressed, but anxiety is her main concern again driven by psychosis. Believes that the staff and patients here are part of a reality TV show and that there or also medication experimentations going on. Believes her family are conspiring as part of this to separate patient and her . Otherwise reports sleep has been good. Reports mornings are good, less anxious and things get worse as the day goes on as she is more in the milieu and around people that she feels paranoid and suspicious about. No medication side effects. There is clear psychomotor retardation when answering questions and it is unclear if this is due to cognition, side effect from ECT, mood or paranoia. ECT on Mondays and Fridays. Discussed considering clozapine with treatment team Medication Compliance: Yes Side effects from medications: No Attending Groups: Intermittent Review of Systems Acute medical concerns: No Review of Systems Review of Systems unremarkable Mental Status Exam Mental Status Exam Narrative: pleasant. Engaged. Appropriately dressed and presented. Fair hygiene. There is some delay in answering questions and thought form, which might be related to cognition, treatment side effects, mood or psychosis. Endorses feeling anxious secondary to delusional beliefs. Denies hallucinations but does appear internally preoccupied. Has paranoid delusions regarding staff, other patients being part of reality TV show and family conspiring against her. No SI or HI. Insight and judgment is limited. Diagnostics Vital Signs (24Hr): Vital Signs - 24 hr 12/01/24 07:51 12/01/24 08:22 12/01/24 10:12 Temperature 97.4 F 97.6 F 97.5 F Pulse Rate 93 87 84 Respiratory Rate 14 16 15 Blood Pressure 137/82 142/79 H 149/41 H Pulse Oximetry 95 95 92 Oxygen Delivery Method Room Air Room Air 12/01/24 10:17 12/01/24 10:22 12/01/24 10:27 Temperature Pulse Rate 85 84 87 Respiratory Rate 15 15 16 Blood Pressure 143/72 H 136/70 146/71 H Pulse Oximetry 96 96 95 Oxygen Delivery Method Room Air Room Air Room Air 12/01/24 10:42 12/01/24 11:31 12/01/24 20:00 Temperature 97.5 F 98.2 F 98 F Pulse Rate 90 84 94 Respiratory Rate 16 12 18 Blood Pressure 144/73 H 136/64 126/60 Pulse Oximetry 95 94 93 Oxygen Delivery Method Room Air Room Air BMI result Body Mass Index 22.4 Labs 11/10/24 07:56 11/10/24 07:56 Medications Medications Current Medications Acetaminophen (Acetaminophen 325 Mg Tablet) 650 mg PO Q6H PRN PRN Reason: Headache/Pain, Scale 1-10 Al Hydroxide/Mg Hydroxide (Magnesium Hydrox/Alum Hydrox 30 Ml Oral.Susp) 30 ml PO Q6H PRN PRN Reason: Heartburn/Nausea Amlodipine Besylate (Amlodipine Besylate 5 Mg Tablet) 5 mg PO DAILY [facility]; Protocol Last Admin: 12/01/24 07:54 Dose: 5 mg Aspirin (Aspirin Enteric Coated 81 Mg Tablet.) 81 mg PO DAILY [facility] Last Admin: 12/01/24 12:04 Dose: 81 mg Brexpiprazole (Brexpiprazole 1 Mg Tablet) 1 mg PO DAILY [facility] Last Admin: 12/01/24 12:04 Dose: 1 mg Docusate Sodium (Docusate Sodium 100 Mg Capsule) 100 mg PO BEDTIME [facility] Last Admin: 12/01/24 20:06 Dose: 100 mg Lorazepam (Lorazepam 0.5 Mg Tablet) 0.5 mg PO Q4H PRN PRN Reason: Anxiety Magnesium Hydroxide (Milk Of Magnesia 30 Ml Oral.Susp) 30 ml PO DAILY PRN PRN Reason: Constipation Naloxone HCl (Naloxone Hcl 0.4 Mg/Ml Vial) 0.04 mg IVPUSH Q5M PRN PRN Reason: Excessive sedation or RR < 8 Olanzapine (Olanzapine 5 Mg Tablet) 5 mg PO BEDTIME [facility] Last Admin: 12/01/24 20:06 Dose: 5 mg Senna (Sennosides 8.6 Mg Tablet) 8.6 mg PO BEDTIME [facility] Last Admin: 12/01/24 20:06 Dose: 8.6 mg Trazodone HCl (Trazodone Hcl 50 Mg Tablet) 50 mg PO BEDTIME MRX1 PRN PRN Reason: Insomnia Last Admin: 12/01/24 20:06 Dose: 50 mg Venlafaxine HCl (Venlafaxine Hcl Er 37.5 Mg Cap.Er.24h) 37.5 mg PO DAILY [facility] Last Admin: 12/01/24 12:04 Dose: 37.5 mg Vortioxetine (Vortioxetine Hydrobromide 10 Mg Tablet) 10 mg PO DAILY [facility] Last Admin: 12/01/24 12:04 Dose: 10 mg Allergies Allergies Allergy/AdvReac Type Severity Reaction Status Date / Time No Known Allergies Allergy Verified 11/20/24 06:27 [No Known Allergies*] Assessment & Plan Assessment & Plan (1) Major depressive disorder, recurrent, severe with psychotic features: Status: Acute Code(s): F33.3 - Major depressive disorder, recurrent, severe with psychotic symptoms (2) Dementia, vascular: Status: Acute Code(s): F01.50 - Vascular dementia, unspecified severity, without behavioral disturbance, psychotic disturbance, mood disturbance, and anxiety Assessment and Plan: Mild dementia probably related to age and extensive microvascular white matter disease (3) Parkinsonism: Status: Acute Code(s): G20.C - Parkinsonism, unspecified Assessment and Plan: 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 Recom.: Review the necessity of any anti- dopaminergic drugs and their dosages for her psychiatric needs. OP f/u with Dr. Hensley. Plan The patient is a middle-aged female with a past history of major depressive disorder who historically did very well on ECT and she was receiving ECT maintenance. She recently relapsed in her depressive symptoms and needed to be admitted for treatment due to suicidal ideation. 11/11 remains depressed; agrees with plan for ECT; says ECT has helped in the past but was not sure if subsequent ECT trials were effective 11/13: c/o anxiety, ativan 0.5 PRN ordered. otherwise continue current mgmt. PMR. 11/14: slightly more spontaneous today. seen by neuro. continue current mgmt. Plan 1. The patient is able to contract for safety so we are going to place her on 15 minute checks. 2. Follow-up with orthopedic team. 3. Referral for ECT ECT restarted, the patient improved after the 1st treatment. 4. Continue with same antidepressants. 11/15/24 refused ect start olanzapine encourage ect 11/17/2024 Continue plan of care Trintellix olanzapine started 11/18: ECT #2 completed 11/17. remains very slowed with paucity of thought. continue current mgmt. 11/19: appears confused, not oriented to day. ECT #3 tomorrow, T/C decreasing stimulus dose. 11/20 hold ect to 2 x wk trintelix olanzapine 11/21/24 Monitor response to holding ECT taper Abilify increase olanzapine Trintellix 10 mg patient remains quite depressed intermittently confused psychotically preoccupied 11/22/2024 Start Rexulti taper Abilify Trintellix would try to maintain ECT 2 times a week to limit cognitive difficulty 11/23/2024 Continue ECT Monitor response monitor for any worsening confusion monitor response to Rexulti Trintellix taper Effexor 11/24/2024 Mood depressed thoughts suspicious isolated continue ECT Rexulti Trintellix 11/25: Continue current regimen and plans 11/26: Continue current regimen and plans 11/27/2024 Continue ECT monitor dosing frequency increase Rexulti as tolerant remains psychotically depressed no active SI Healthcare proxy invoked 11/28/2024 Hold ECT for the morning 11/29/2024 Patient is less depressed but paranoid suspicious difficulty processing information denies SI Increase Rexulti to 1 mg taper effexor continue Trintellix ECT 2 times a week 11/30/2024 ECT in the amRexul ti increased continue Trintellix 12/01/2024 Continue ECT Wednesday and Wednesday patient did not need 12 ECT in the past eventually changed to bifrontal. Continue Rexulti increase his needed 12/02: No changes to current treatment plan. Discussed considering clozapine with treatment team Reason for continued inpatient stay Substantial Risk for: inability to function Time Spent With Patient Time: Total time managing care of this patient today ____ minutes.
[2024-12-02 08:00] VITALS: BP 132/59; PULSE 95; RESP 18; TEMP 36.4; O2SAT 94
[2024-12-02] MEDS: Aspirin Enteric Coated 81 MG TABLET.DR PO (08:28)
[2024-12-02] MEDS: Brexpiprazole 1 MG TABLET PO (08:28)
[2024-12-02] MEDS: Venlafaxine HCl ER 37.5 MG CAP.ER.24H PO (08:28)
[2024-12-02] MEDS: Vortioxetine Hydrobromide 10 MG TABLET PO (08:28)
[2024-12-02 09:56] VITALS: BP 129/62
[2024-12-02] MEDS: amLODIPine Besylate 5 MG TABLET PO (09:56)
[2024-12-02 10:00] VITALS: BP 129/62; PULSE 84; RESP 18; TEMP 36.9; O2SAT 96
[2024-12-02 20:00] VITALS: BP 126/65; PULSE 82; RESP 16; TEMP 36.4; O2SAT 98
[2024-12-02] MEDS: Sennosides 8.6 MG TABLET PO (20:35)
[2024-12-02] MEDS: traZODone HCL 50 MG TABLET PO (20:36)
[2024-12-02] MEDS: Docusate Sodium 100 MG CAPSULE PO (20:36)
[2024-12-02] MEDS: OLANZapine 5 MG TABLET PO (20:36)
[2024-12-03 08:00] VITALS: BP 131/62; PULSE 97; RESP 16; TEMP 36.8; O2SAT 96
[2024-12-03] MEDS: amLODIPine Besylate 5 MG TABLET PO (09:48)
[2024-12-03] MEDS: Aspirin Enteric Coated 81 MG TABLET.DR PO (09:48)
[2024-12-03] MEDS: Venlafaxine HCl ER 37.5 MG CAP.ER.24H PO (09:48)
[2024-12-03] MEDS: Vortioxetine Hydrobromide 10 MG TABLET PO (09:49)
[2024-12-03] MEDS: Brexpiprazole 1 MG TABLET PO (09:49)
[2024-12-03] MEDS: LORazepam 0.5 MG TABLET PO (15:26)
--- NOTE | 2024-12-03 17:46 | P.PNPSI_ITS ---
Subjective Subjective Date of Service: 12/03/24 Reason For Visit: severe depression psychosis si Subjective Notes: Conditional Voluntary Medical Problems Affecting Mental Status: No Interim History: Remains depressed. Worried that she won't be able to go back to [place]. Eating and sleeping OK. No physical health complaints Medication Compliance: Yes Side effects from medications: No Attending Groups: Yes Review of Systems Acute medical concerns: No Medical Review of Systems: unchanged Mental Status Exam Mental Status Exam Patient Appearance: Well Grooomed Patient Orientation: Person, Place, Time and Situation Level of Consciousness: Alert Patient Behavior: Appropriate Mood Description: Depressed Affect Description: Withdrawn and Fearful Patient Cognition Impaired: No Ability to Follow Directions: Excellent Speech Pattern: Clear and Delayed Memory Description: Intact Hallucinations: None Delusions: Not Present Thought Process: Intact Thought Content: positive for Perseveration Depressive Symptoms: Increased Anxiety, Isolating-Friends/Family and Loss of Energy Judgement: Good Diagnostics Vital Signs (24Hr): Vital Signs - 24 hr 12/02/24 20:00 12/03/24 08:00 Temperature 97.5 F 98.2 F Pulse Rate 82 97 Respiratory Rate 16 16 Blood Pressure 126/65 131/62 Pulse Oximetry 98 96 Oxygen Delivery Method Room Air Room Air BMI result Body Mass Index 22.4 Labs 11/10/24 07:56 11/10/24 07:56 Medications Medications Current Medications Acetaminophen (Acetaminophen 325 Mg Tablet) 650 mg PO Q6H PRN PRN Reason: Headache/Pain, Scale 1-10 Al Hydroxide/Mg Hydroxide (Magnesium Hydrox/Alum Hydrox 30 Ml Oral.Susp) 30 ml PO Q6H PRN PRN Reason: Heartburn/Nausea Amlodipine Besylate (Amlodipine Besylate 5 Mg Tablet) 5 mg PO DAILY [facility]; Protocol Last Admin: 12/03/24 09:48 Dose: 5 mg Aspirin (Aspirin Enteric Coated 81 Mg Tablet.Dr) 81 mg PO DAILY [facility] Last Admin: 12/03/24 09:48 Dose: 81 mg Brexpiprazole (Brexpiprazole 1 Mg Tablet) 1 mg PO DAILY [facility] Last Admin: 12/03/24 09:49 Dose: 1 mg Docusate Sodium (Docusate Sodium 100 Mg Capsule) 100 mg PO BEDTIME [facility] Last Admin: 12/02/24 20:36 Dose: 100 mg Lorazepam (Lorazepam 0.5 Mg Tablet) 0.5 mg PO Q4H PRN PRN Reason: Anxiety Last Admin: 12/03/24 15:26 Dose: 0.5 mg Magnesium Hydroxide (Milk Of Magnesia 30 Ml Oral.Susp) 30 ml PO DAILY PRN PRN Reason: Constipation Naloxone HCl (Naloxone Hcl 0.4 Mg/Ml Vial) 0.04 mg IVPUSH Q5M PRN PRN Reason: Excessive sedation or RR < 8 Olanzapine (Olanzapine 5 Mg Tablet) 5 mg PO BEDTIME [facility] Last Admin: 12/02/24 20:36 Dose: 5 mg Senna (Sennosides 8.6 Mg Tablet) 8.6 mg PO BEDTIME [facility] Last Admin: 12/02/24 20:35 Dose: 8.6 mg Trazodone HCl (Trazodone Hcl 50 Mg Tablet) 50 mg PO BEDTIME MRX1 PRN PRN Reason: Insomnia Last Admin: 12/02/24 20:36 Dose: 50 mg Venlafaxine HCl (Venlafaxine Hcl Er 37.5 Mg Cap.Er.24h) 37.5 mg PO DAILY [facility] Last Admin: 12/03/24 09:48 Dose: 37.5 mg Vortioxetine (Vortioxetine Hydrobromide 10 Mg Tablet) 10 mg PO DAILY [facility] Last Admin: 12/03/24 09:49 Dose: 10 mg Allergies Allergies Allergy/AdvReac Type Severity Reaction Status Date / Time No Known Allergies Allergy Verified 11/20/24 06:27 [No Known Allergies*] Assessment & Plan Assessment & Plan (1) Major depressive disorder, recurrent, severe with psychotic features: Status: Acute Code(s): F33.3 - Major depressive disorder, recurrent, severe with psychotic symptoms (2) Dementia, vascular: Status: Acute Code(s): F01.50 - Vascular dementia, unspecified severity, without behavioral disturbance, psychotic disturbance, mood disturbance, and anxiety Assessment and Plan: Mild dementia probably related to age and extensive microvascular white matter disease (3) Parkinsonism: Status: Acute Code(s): G20.C - Parkinsonism, unspecified Assessment and Plan: 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 Recom.: Review the necessity of any anti- dopaminergic drugs and their dosages for her psychiatric needs. OP f/u with Dr. Hensley. Plan The patient is a middle-aged female with a past history of major depressive disorder who historically did very well on ECT and she was receiving ECT maintenance. She recently relapsed in her depressive symptoms and needed to be admitted for treatment due to suicidal ideation. 11/11 remains depressed; agrees with plan for ECT; says ECT has helped in the past but was not sure if subsequent ECT trials were effective 11/13: c/o anxiety, ativan 0.5 PRN ordered. otherwise continue current mgmt. PMR. 11/14: slightly more spontaneous today. seen by neuro. continue current mgmt. Plan 1. The patient is able to contract for safety so we are going to place her on 15 minute checks. 2. Follow-up with orthopedic team. 3. Referral for ECT ECT restarted, the patient improved after the 1st treatment. 4. Continue with same antidepressants. 11/15/24 refused ect start olanzapine encourage ect 11/17/2024 Continue plan of care Trintellix olanzapine started 11/18: ECT #2 completed 11/17. remains very slowed with paucity of thought. continue current mgmt. 11/19: appears confused, not oriented to day. ECT #3 tomorrow, T/C decreasing stimulus dose. 11/20 hold ect to 2 x wk trintelix olanzapine 11/21/24 Monitor response to holding ECT taper Abilify increase olanzapine Trintellix 10 mg patient remains quite depressed intermittently confused psychotically preoccupied 11/22/2024 Start Rexulti taper Abilify Trintellix would try to maintain ECT 2 times a week to limit cognitive difficulty 11/23/2024 Continue ECT Monitor response monitor for any worsening confusion monitor response to Rexulti Trintellix taper Effexor 11/24/2024 Mood depressed thoughts suspicious isolated continue ECT Rexulti Trintellix 11/25: Continue current regimen and plans 11/26: Continue current regimen and plans 11/27/2024 Continue ECT monitor dosing frequency increase Rexulti as tolerant remains psychotically depressed no active SI Healthcare proxy invoked 11/28/2024 Hold ECT for the morning 11/29/2024 Patient is less depressed but paranoid suspicious difficulty processing information denies SI Increase Rexulti to 1 mg taper effexor continue Trintellix ECT 2 times a week 11/30/2024 ECT in the amRexul ti increased continue Trintellix 12/01/2024 Continue ECT Wednesday and Wednesday patient did not need 12 ECT in the past eventually changed to bifrontal. Continue Rexulti increase his needed 12/02: No changes to current treatment plan. Discussed considering clozapine with treatment team 12/03: no changes to management Reason for continued inpatient stay Substantial Risk for: inability to function Time Spent With Patient Time: Total time managing care of this patient today ____ minutes.
[2024-12-03 20:00] VITALS: BP 117/67; PULSE 80; RESP 16; TEMP 36.6; O2SAT 95
[2024-12-03] MEDS: Docusate Sodium 100 MG CAPSULE PO (20:30)
[2024-12-03] MEDS: Sennosides 8.6 MG TABLET PO (20:30)
[2024-12-03] MEDS: OLANZapine 5 MG TABLET PO (20:30)
[2024-12-04] MEDS: amLODIPine Besylate 5 MG TABLET PO (06:41)
[2024-12-04 06:46] VITALS: BP 123/57; PULSE 105; RESP 18; TEMP 36.3
[2024-12-04 06:47] VITALS: BP 123/57; PULSE 105; RESP 18; TEMP 36.3; O2SAT 95
[2024-12-04 07:53] VITALS: BP 111/59; PULSE 83; RESP 16; TEMP 36.8; O2SAT 96
--- NOTE | 2024-12-04 09:09 | MHC.SHP ---
Pre-Procedural Eval Section A - 24 Hr Update-Section A only Date of Service: 12/04/24 Changes since office visit: Yes Changes in Medication and Yes Patient answered all questions; No Cold of Flu in the past 2 weeks and No New Medical Problems The patient has been examined within 24 hours of the surgical procedure. The History & Physical has been completed within 30 days and I have reviewed it.: Yes Section B - Complete if H&P > 30 days Chief Complaint: severe depression psychosis si Allergies: Allergies Allergy/AdvReac Type Severity Reaction Status Date / Time No Known Allergies Allergy Verified 11/20/24 06:27 [No Known Allergies*] Plan I have reviewed the history and physical and performed a pertinent physical examination on my patient. No changes have occurred unless specified. Time Spent With Patient Time: Total time managing care of this patient today ____ minutes.
--- NOTE | 2024-12-04 09:10 | HO.PSYCHPN ---
Subjective Subjective Date of Service: 12/04/24 Reason For Visit: severe depression psychosis si Subjective Notes: Conditional Voluntary Healthcare Proxy: Yes Interim History: Patient is seen in psychiatric follow-up patient was NPO today but unfortunately PACU was able to accommodate and rescheduled for tomorrow.Pt has been grossly fearful paranoid concerns at times Mental Status Exam Mental Status Exam Patient Appearance: Well Grooomed Patient Orientation: Person, Place, Time and Situation Level of Consciousness: Alert Patient Behavior: Appropriate Mood Description: Depressed Affect Description: Withdrawn, Fearful and Blunted Patient Cognition Impaired: No Ability to Follow Directions: Good Speech Pattern: Clear and Delayed Memory Description: Intact, Episodic Impaired and Working Impaired Hallucinations: None Delusions: Paranoid Ideation Thought Process: Intact Thought Content: positive for Perseveration Depressive Symptoms: Increased Anxiety, Isolating-Friends/Family and Loss of Energy Judgement: Fair Judgement and Insight: slowed mentation Diagnostics Vital Signs (24Hr): Vital Signs - 24 hr 12/03/24 20:00 12/04/24 06:46 12/04/24 06:47 Temperature 97.9 F 97.3 F 97.3 F Pulse Rate 80 105 H 105 H Respiratory Rate 16 18 18 Blood Pressure 117/67 123/57 L 123/57 L Pulse Oximetry 95 95 Oxygen Delivery Method Room Air Room Air 12/04/24 07:53 Temperature 98.2 F Pulse Rate 83 Respiratory Rate 16 Blood Pressure 111/59 L Pulse Oximetry 96 Oxygen Delivery Method Room Air BMI result Body Mass Index 22.4 Labs 11/10/24 07:56 11/10/24 07:56 Medications Medications Current Medications Acetaminophen (Acetaminophen 325 Mg Tablet) 650 mg PO Q6H PRN PRN Reason: Headache/Pain, Scale 1-10 Al Hydroxide/Mg Hydroxide (Magnesium Hydrox/Alum Hydrox 30 Ml Oral.Susp) 30 ml PO Q6H PRN PRN Reason: Heartburn/Nausea Amlodipine Besylate (Amlodipine Besylate 5 Mg Tablet) 5 mg PO DAILY [facility]; Protocol Last Admin: 12/04/24 06:41 Dose: 5 mg Aspirin (Aspirin Enteric Coated 81 Mg Tablet.Dr) 81 mg PO DAILY [facility] Last Admin: 12/03/24 09:48 Dose: 81 mg Brexpiprazole (Brexpiprazole 1 Mg Tablet) 1 mg PO DAILY [facility] Last Admin: 12/03/24 09:49 Dose: 1 mg Docusate Sodium (Docusate Sodium 100 Mg Capsule) 100 mg PO BEDTIME [facility] Last Admin: 12/03/24 20:30 Dose: 100 mg Lorazepam (Lorazepam 0.5 Mg Tablet) 0.5 mg PO Q4H PRN PRN Reason: Anxiety Last Admin: 12/03/24 15:26 Dose: 0.5 mg Magnesium Hydroxide (Milk Of Magnesia 30 Ml Oral.Susp) 30 ml PO DAILY PRN PRN Reason: Constipation Naloxone HCl (Naloxone Hcl 0.4 Mg/Ml Vial) 0.04 mg IVPUSH Q5M PRN PRN Reason: Excessive sedation or RR < 8 Olanzapine (Olanzapine 5 Mg Tablet) 5 mg PO BEDTIME [facility] Last Admin: 12/03/24 20:30 Dose: 5 mg Senna (Sennosides 8.6 Mg Tablet) 8.6 mg PO BEDTIME [facility] Last Admin: 12/03/24 20:30 Dose: 8.6 mg Trazodone HCl (Trazodone Hcl 50 Mg Tablet) 50 mg PO BEDTIME MRX1 PRN PRN Reason: Insomnia Last Admin: 12/02/24 20:36 Dose: 50 mg Venlafaxine HCl (Venlafaxine Hcl Er 37.5 Mg Cap.Er.24h) 37.5 mg PO DAILY [facility] Last Admin: 12/03/24 09:48 Dose: 37.5 mg Vortioxetine (Vortioxetine Hydrobromide 10 Mg Tablet) 10 mg PO DAILY [facility] Last Admin: 12/03/24 09:49 Dose: 10 mg Allergies Allergies Allergy/AdvReac Type Severity Reaction Status Date / Time No Known Allergies Allergy Verified 11/20/24 06:27 [No Known Allergies*] Assessment & Plan Assessment & Plan (1) Major depressive disorder, recurrent, severe with psychotic features: Status: Acute Code(s): F33.3 - Major depressive disorder, recurrent, severe with psychotic symptoms (2) Dementia, vascular: Status: Acute Code(s): F01.50 - Vascular dementia, unspecified severity, without behavioral disturbance, psychotic disturbance, mood disturbance, and anxiety Assessment and Plan: Mild dementia probably related to age and extensive microvascular white matter disease (3) Parkinsonism: Status: Acute Code(s): G20.C - Parkinsonism, unspecified Assessment and Plan: 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 Recom.: Review the necessity of any anti- dopaminergic drugs and their dosages for her psychiatric needs. OP f/u with Dr. Hensley. Plan The patient is a middle-aged female with a past history of major depressive disorder who historically did very well on ECT and she was receiving ECT maintenance. She recently relapsed in her depressive symptoms and needed to be admitted for treatment due to suicidal ideation. 11/11 remains depressed; agrees with plan for ECT; says ECT has helped in the past but was not sure if subsequent ECT trials were effective 11/13: c/o anxiety, ativan 0.5 PRN ordered. otherwise continue current mgmt. PMR. 11/14: slightly more spontaneous today. seen by neuro. continue current mgmt. Plan 1. The patient is able to contract for safety so we are going to place her on 15 minute checks. 2. Follow-up with orthopedic team. 3. Referral for ECT ECT restarted, the patient improved after the 1st treatment. 4. Continue with same antidepressants. 11/15/24 refused ect start olanzapine encourage ect 11/17/2024 Continue plan of care Trintellix olanzapine started 11/18: ECT #2 completed 11/17. remains very slowed with paucity of thought. continue current mgmt. 11/19: appears confused, not oriented to day. ECT #3 tomorrow, T/C decreasing stimulus dose. 11/20 hold ect to 2 x wk trintelix olanzapine 11/21/24 Monitor response to holding ECT taper Abilify increase olanzapine Trintellix 10 mg patient remains quite depressed intermittently confused psychotically preoccupied 11/22/2024 Start Rexulti taper Abilify Trintellix would try to maintain ECT 2 times a week to limit cognitive difficulty 11/23/2024 Continue ECT Monitor response monitor for any worsening confusion monitor response to Rexulti Trintellix taper Effexor 11/24/2024 Mood depressed thoughts suspicious isolated continue ECT Rexulti Trintellix 11/25: Continue current regimen and plans 11/26: Continue current regimen and plans 11/27/2024 Continue ECT monitor dosing frequency increase Rexulti as tolerant remains psychotically depressed no active SI Healthcare proxy invoked 11/28/2024 Hold ECT for the morning 11/29/2024 Patient is less depressed but paranoid suspicious difficulty processing information denies SI Increase Rexulti to 1 mg taper effexor continue Trintellix ECT 2 times a week 11/30/2024 ECT in the amRexul ti increased continue Trintellix 12/01/2024 Continue ECT Wednesday and Wednesday patient did not need 12 ECT in the past eventually changed to bifrontal. Continue Rexulti increase his needed 12/02: No changes to current treatment plan. Discussed considering clozapine with treatment team 12/03: no changes to management 12/04/24 Ect in am held today Reason for continued inpatient stay Substantial Risk for: harm to self, inability to function and rapid decompensation Time Spent With Patient Time: Total time managing care of this patient today ____ minutes.
--- NOTE | 2024-12-04 14:55 | PC.NURSE ---
Patient NPO since midnight,except for AM BP medication. Brought to PACU for ECT at 14:46 today.
[2024-12-04 15:34] VITALS: BP 133/63; PULSE 92; RESP 18; TEMP 37; O2SAT 97
[2024-12-04 20:00] VITALS: BP 159/70; PULSE 75; RESP 18; TEMP 36.9; O2SAT 98
[2024-12-04] MEDS: Sennosides 8.6 MG TABLET PO (21:10)
[2024-12-04] MEDS: traZODone HCL 50 MG TABLET PO (21:10)
[2024-12-04] MEDS: Docusate Sodium 100 MG CAPSULE PO (21:10)
[2024-12-04] MEDS: OLANZapine 5 MG TABLET PO (21:10)
[2024-12-05] VITALS (11 sets, daily range): BP systolic 138–181; BP diastolic 63–87; PULSE 84–102; RESP 12–18; TEMP 36.1–37.1; O2SAT 95–99
[2024-12-05] MEDS: amLODIPine Besylate 5 MG TABLET PO (08:52)
--- NOTE | 2024-12-05 10:46 | P.PNIM_ITS ---
Subjective Subjective Date of Service: 12/05/24 Interval History: 84 year old female with PMH of Parkinsonism, OCD, MDD, CKD Stage 3, HTN history of left ankle fracture with ORIF. On exam she has no complaints aside from feeling anxious. She is currently receiving ECT treatments she has received several times in the past. Patient is scheduled for treatment today. She denies any appetite changes, sleeping well. No medical concerns. No concerns from nursing. Review of Systems Denies any shortness of breath, chest pain, dizziness, lightheadedness, abdominal pain or discomfort, nausea vomiting or diarrhea. Physical Exam 2 Vital Signs: Vital Signs: Last Vital Signs Temp 98.8 F 12/05/24 08:50 Pulse 84 12/05/24 08:50 Resp 16 12/05/24 08:50 BP 139/64 12/05/24 08:50 Pulse Ox 96 12/05/24 08:50 O2 Del Method Room Air 12/05/24 08:50 O2 Flow Rate 2 11/27/24 08:25 BMI result Body Mass Index 22.4 CONST: Alert and oriented, in NAD. Well nourished. Appears fearful. HEENT: Normocephalic, atraumatic, MMM, Eyes clear, Neck supple RESP: Lungs clear, RRR even and regular HEART:,RRR, S1, S2. No murmur, no edema GI:Abdomen Soft NT, ND. + BS times four :Deferred SKIN: Warm dry and intact, no visible lesions or rashes NEURO:CN II-XII Intact bilaterally, Sensation intact. Speech clear PSYCH: Appears fearful, cooperative with exam. Objective Data Active Medications Acetaminophen (Acetaminophen 325 Mg Tablet) 650 mg PO Q6H PRN PRN Reason: Headache/Pain, Scale 1-10 Al Hydroxide/Mg Hydroxide (Magnesium Hydrox/Alum Hydrox 30 Ml Oral.Susp) 30 ml PO Q6H PRN PRN Reason: Heartburn/Nausea Amlodipine Besylate (Amlodipine Besylate 5 Mg Tablet) 5 mg PO DAILY [facility]; Protocol Last Admin: 12/05/24 08:52 Dose: 5 mg Documented By: JALIL Aspirin (Aspirin Enteric Coated 81 Mg Tablet.) 81 mg PO DAILY [facility] Last Admin: 12/04/24 14:58 Dose: Not Given Documented By: RASHIDA Non-Admin Reason: Pt NPO for ECT Brexpiprazole (Brexpiprazole 1 Mg Tablet) 1 mg PO DAILY [facility] Last Admin: 12/04/24 14:58 Dose: Not Given Documented By: RASHIDA Non-Admin Reason: Pt. NPO for ECT Docusate Sodium (Docusate Sodium 100 Mg Capsule) 100 mg PO BEDTIME [facility] Last Admin: 12/04/24 21:10 Dose: 100 mg Documented By: DERRICK Lorazepam (Lorazepam 0.5 Mg Tablet) 0.5 mg PO Q4H PRN PRN Reason: Anxiety Last Admin: 12/03/24 15:26 Dose: 0.5 mg Documented By: TEZ Magnesium Hydroxide (Milk Of Magnesia 30 Ml Oral.Susp) 30 ml PO DAILY PRN PRN Reason: Constipation Olanzapine (Olanzapine 5 Mg Tablet) 5 mg PO BEDTIME [facility] Last Admin: 12/04/24 21:10 Dose: 5 mg Documented By: DERRICK Senna (Sennosides 8.6 Mg Tablet) 8.6 mg PO BEDTIME [facility] Last Admin: 12/04/24 21:10 Dose: 8.6 mg Documented By: DERRICK Trazodone HCl (Trazodone Hcl 50 Mg Tablet) 50 mg PO BEDTIME MRX1 PRN PRN Reason: Insomnia Last Admin: 12/04/24 21:10 Dose: 50 mg Documented By: DERRICK Venlafaxine HCl (Venlafaxine Hcl Er 37.5 Mg Cap.Er.24h) 37.5 mg PO DAILY [facility] Last Admin: 12/04/24 14:58 Dose: Not Given Documented By: RASHIDA Non-Admin Reason: Pt. NPO for ECT Vortioxetine (Vortioxetine Hydrobromide 10 Mg Tablet) 10 mg PO DAILY [facility] Last Admin: 12/04/24 14:59 Dose: Not Given Documented By: RASHIDA Non-Admin Reason: Pt. NPO for ECT Labs 11/10/24 07:56 11/10/24 07:56 Assessment and Plan (1) HLD (hyperlipidemia): Status: Acute Plan Patient is an 83-year-old female with a PMH significant for MDD, OCD, and history of left ankle fracture with ORIF who was admitted to [facility] with increased depression, decreased appetite, and medication noncompliance. 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 OP f/u with Dr. Hensley. Hypertension/Prediabetes/HLD Blood pressures have been stable Continue on amlodipine daily Patient taking a daily aspirin Labs reviewed 11/10/2024, no anemia, renal function stable Hemoglobin A1c 5.5. Encouraged activity Noted to have elevated cholesterol, total cholesterol 265, LDL 154, HDL 98 Will start low-dose atorvastatin 10 mg daily Quality Stroke Does the patient have a stroke diagnosis?: No VTE Prior VTE?: No VTE Risk Level:: Medical - low VTE Device Contraindication: Treatment Not Indicated VTE Drug Contraindication: N/A - Med Ordered
--- NOTE | 2024-12-05 12:36 | PC.NURSE ---
All AM medications except Amlodipine held for ECT today, patient NPO since midnight. VSS 89-63-38-143/66, O2 Sat 95% at 1200 today prior to being brought to ECT in PACU.
--- NOTE | 2024-12-05 14:01 | MHC.SHP ---
Pre-Procedural Eval Section A - 24 Hr Update-Section A only Date of Service: 12/05/24 Changes since office visit: Yes Changes in Medication and Yes Patient answered all questions; No Cold of Flu in the past 2 weeks and No New Medical Problems The patient has been examined within 24 hours of the surgical procedure. The History & Physical has been completed within 30 days and I have reviewed it.: Yes Section B - Complete if H&P > 30 days Chief Complaint: severe depression psychosis si Allergies: Allergies Allergy/AdvReac Type Severity Reaction Status Date / Time No Known Allergies Allergy Verified 11/20/24 06:27 [No Known Allergies*] Plan I have reviewed the history and physical and performed a pertinent physical examination on my patient. No changes have occurred unless specified. Time Spent With Patient Time: Total time managing care of this patient today ____ minutes.
--- NOTE | 2024-12-05 14:16 | HO.ECTPROC ---
ECT Procedure Note Diagnosis/Treatment Date of Service: 12/05/24 Diagnosis: Major Depressive Disorder Previous ECT Date: 12/01/24 Current Treatment Number: 7 Treatment: Series Interval Clinical Notes: pt remains depressed with PI will not wash her hair because she is concerned someone will take her things does feel less depressed. Patient restricted affect her son who is healthcare proxy able to give informed consent for ECT Time: Total time managing care of this patient today ____ minutes. ECT Settings Device: THYMATRON DGx Electrode Placement: Right Unilateral Program/Pulse Width: 0.50 Energy Percent: 100 Seizure Duration By EEG (in seconds): 84 Medications Administration General Anesthetic: Etomidate (14) Muscle Relaxant: Succinylcholine (80) Ancillary Medications Miscillaneous Medications: Propofol (20) Airway Management Airway Management: Bag Mask Ventilation Treatment Recommendations No Changes Recommended: No change Notes: Patient on 2 time a week schedule consider bifrontal if no improvement can lower percentage Pt Tolerated Procedure w/o Issue: Yes
--- NOTE | 2024-12-05 14:21 | P.CONAN_ITS ---
[facility] Active Problems Active Problems: All Active Problems HLD (hyperlipidemia) (Acute) Pre-op evaluation (Acute) Parkinsonism (Acute) Dementia, vascular (Acute) Major depressive disorder, recurrent, severe with psychotic features (Acute) Depression (Acute) Abnormal finding on EKG (Acute) Major depressive disorder, recurrent severe without psychotic features (Acute) OCD (obsessive compulsive disorder) (Acute) Past Medical History Medical History History of fracture of left ankle OCD (obsessive compulsive disorder) Major depressive disorder, recurrent severe without psychotic features S/P ECT (electroconvulsive therapy) Functional capacity: independent ambulation Family History Family History Mother CHF (congestive heart failure) Family history of problems with anesthesia: No Surgical History Surgical History No history of previous surgery History of Problems with Anesthesia: No Social History Social History Household Members: None Housing: Apartment Housing Other:: Halfway community Do you presently have visiting nurse or other home services: Yes ([employer] [facility]) Patient Tobacco Use Status: Never used Tobacco e-Cigarette/Vaping Use: Never Used service: No Sexual orientation: Straight/Heterosexual Meds Allergies Allergy/AdvReac Type Severity Reaction Status Date / Time No Known Allergies Allergy Verified 11/20/24 06:27 [No Known Allergies*] Active Medications: Current Medications Acetaminophen (Acetaminophen 325 Mg Tablet) 650 mg PO Q6H PRN PRN Reason: Headache/Pain, Scale 1-10 Al Hydroxide/Mg Hydroxide (Magnesium Hydrox/Alum Hydrox 30 Ml Oral.Susp) 30 ml PO Q6H PRN PRN Reason: Heartburn/Nausea Amlodipine Besylate (Amlodipine Besylate 5 Mg Tablet) 5 mg PO DAILY [facility]; Protocol Last Admin: 12/05/24 08:52 Dose: 5 mg Aspirin (Aspirin Enteric Coated 81 Mg Tablet.Dr) 81 mg PO DAILY [facility] Last Admin: 12/05/24 12:35 Dose: Not Given Atorvastatin Calcium (Atorvastatin Calcium 10 Mg Tablet) 10 mg PO BEDTIME [facility] Brexpiprazole (Brexpiprazole 1 Mg Tablet) 1 mg PO DAILY [facility] Last Admin: 12/05/24 12:35 Dose: Not Given Docusate Sodium (Docusate Sodium 100 Mg Capsule) 100 mg PO BEDTIME [facility] Last Admin: 12/04/24 21:10 Dose: 100 mg Lorazepam (Lorazepam 0.5 Mg Tablet) 0.5 mg PO Q4H PRN PRN Reason: Anxiety Last Admin: 12/03/24 15:26 Dose: 0.5 mg Magnesium Hydroxide (Milk Of Magnesia 30 Ml Oral.Susp) 30 ml PO DAILY PRN PRN Reason: Constipation Olanzapine (Olanzapine 5 Mg Tablet) 5 mg PO BEDTIME [facility] Last Admin: 12/04/24 21:10 Dose: 5 mg Senna (Sennosides 8.6 Mg Tablet) 8.6 mg PO BEDTIME [facility] Last Admin: 12/04/24 21:10 Dose: 8.6 mg Trazodone HCl (Trazodone Hcl 50 Mg Tablet) 50 mg PO BEDTIME MRX1 PRN PRN Reason: Insomnia Last Admin: 12/04/24 21:10 Dose: 50 mg Venlafaxine HCl (Venlafaxine Hcl Er 37.5 Mg Cap.Er.24h) 37.5 mg PO DAILY [facility] Last Admin: 12/05/24 12:35 Dose: Not Given Vortioxetine (Vortioxetine Hydrobromide 10 Mg Tablet) 10 mg PO DAILY [facility] Last Admin: 12/05/24 12:36 Dose: Not Given Home Medications ?Medication ?Instructions ?Recorded ?Confirmed ?Last Taken ?Type acetaminophen 500 mg tablet 500 mg PO TID PRN pain 11/09/24 11/09/24 Unknown History (Acetaminophen Extra Strength) docusate sodium 100 mg capsule 100 mg PO BEDTIME constipation 11/09/24 11/09/24 11/07/24 20:00 History (Colace) memantine 7 mg capsule 7 mg PO DAILY 11/09/24 11/09/24 11/08/24 08:00 History sprinkle,extended release 24hr sennosides 8.6 mg tablet (senna) 8.6 mg PO BEDTIME 11/09/24 11/09/24 11/07/24 20:00 History trazodone 50 mg tablet 50 mg PO BEDTIME 11/09/24 11/09/24 Unknown History Exam Height,Weight and Vital Signs: Height 5 ft 3 in Weight 57.323 kg Last Vital Signs Temp 98.5 F 12/05/24 12:42 Pulse 93 12/05/24 12:42 Resp 12 12/05/24 12:42 BP 151/78 H 12/05/24 12:42 Pulse Ox 98 12/05/24 12:42 O2 Del Method Room Air 12/05/24 12:42 O2 Flow Rate 2 11/27/24 08:25 Pertinent Lab Results Pertinent Lab Results: Laboratory Tests 11/08/24 11/08/24 11/10/24 19:58 21:01 07:56 WBC 9.6 8.9 RBC 4.65 5.14 Hgb 14.2 15.9 Hct 41.4 44.8 MCV 89.0 87.2 MCH 30.5 30.9 MCHC 34.3 35.5 H RDW 13.6 13.2 Plt Count 229 240 MPV 10.1 10.7 Immature Gran % (Auto) 0.2 0.3 Neut % (Auto) 64.3 63.1 Lymph % (Auto) 25.6 27.7 [place] % (Auto) 8.8 8.0 Eos % (Auto) 0.6 0.6 Baso % (Auto) 0.5 0.3 Lymph # (Auto) 2.5 2.5 [place] # (Auto) 0.9 0.7 Eos # (Auto) 0.1 0.1 Baso # (Auto) 0.1 0.0 Abs Immat Gran (auto) 0.02 0.03 Absolute Neuts (auto) 6.2 5.6 Absolute Nucleated RBC 0.000 0.000 Nucleated RBC % (auto) 0.0 0.0 Sodium 135 135 Potassium 4.4 4.0 Chloride 99 101 Carbon Dioxide 27 25 Anion Gap 13 13 BUN 19 H 16 Creatinine 0.92 0.78 Estim Creat Clear Calc 38.9 46.0 Estimated GFR 58 > 60 Random Glucose 122 H 87 Estimat Average Glucose 111 Hemoglobin A1c % 5.5 Calcium 9.4 9.3 Magnesium 2.1 Total Bilirubin 0.4 0.8 Direct Bilirubin 0.1 AST 24 25 ALT 26 16 Alkaline Phosphatase 82 69 Total Protein 6.6 6.4 L Albumin 4.3 4.2 Triglycerides 64 Cholesterol 264 H LDL Cholesterol, Calc 154 H HDL Cholesterol 98 Vitamin B12 567 Folate 9.3 TSH 2.75 Urine Color Yellow Urine Appearance Clear Urine pH 5.5 Ur Specific [place] 1.020 Urine Protein Negative Urine Glucose (UA) Negative Urine Ketones Trace Urine Blood Negative Urine Nitrite Negative Ur Leukocyte Esterase Moderate (2+) H Urine RBC 0-2 Urine WBC 21-50 H Ur Squamous Epith Cells 3-5 Urine Bacteria None Seen Hyaline Casts 0-2 Urine Opiates Screen Not Detected Ur Buprenorphine Scrn Not Detected Ur Oxycodone Screen Not Detected Urine Methadone Screen Not Detected Urine Fentanyl Screen Not Detected Ur Barbiturates Screen Not Detected Ur Phencyclidine Scrn Not Detected Ur Amphetamines Screen Not Detected U Benzodiazepines Scrn Not Detected Urine Cocaine Screen Not Detected U Marijuana (THC) Screen Not Detected Ethyl Alcohol < 10 11/21/24 12:30 WBC RBC Hgb Hct MCV MCH MCHC RDW Plt Count MPV Immature Gran % (Auto) Neut % (Auto) Lymph % (Auto) [place] % (Auto) Eos % (Auto) Baso % (Auto) Lymph # (Auto) [place] # (Auto) Eos # (Auto) Baso # (Auto) Abs Immat Gran (auto) Absolute Neuts (auto) Absolute Nucleated RBC Nucleated RBC % (auto) Sodium Potassium Chloride Carbon Dioxide Anion Gap BUN Creatinine Estim Creat Clear Calc Estimated GFR Random Glucose Estimat Average Glucose Hemoglobin A1c % Calcium Magnesium Total Bilirubin Direct Bilirubin AST ALT Alkaline Phosphatase Total Protein Albumin Triglycerides Cholesterol LDL Cholesterol, Calc HDL Cholesterol Vitamin B12 Folate TSH Urine Color Yellow Urine Appearance Clear Urine pH 5.5 Ur Specific [place] 1.015 Urine Protein Negative Urine Glucose (UA) Negative Urine Ketones Trace Urine Blood Negative Urine Nitrite Negative Ur Leukocyte Esterase Trace H Urine RBC 0-2 Urine WBC 0-5 Ur Squamous Epith Cells 0-2 Urine Bacteria None Seen Hyaline Casts 0-2 Urine Opiates Screen Ur Buprenorphine Scrn Ur Oxycodone Screen Urine Methadone Screen Urine Fentanyl Screen Ur Barbiturates Screen Ur Phencyclidine Scrn Ur Amphetamines Screen U Benzodiazepines Scrn Urine Cocaine Screen U Marijuana (THC) Screen Ethyl Alcohol Airway Mallampati Class: III TM Dist: >3cm Neck ROM: Limited Loose/Missing/Broken Teeth: Yes Heart: RRR Lungs: CTA Assessment and Plan Final Anesthetic Review Family History of Problems with Anesthesia: No History of Problems with Anesthesia: No NPO: Yes ASA Class: III Final Preanesthetic Review: Meds/Allgs Chart Reviewed, Consent Obtained/Reviewed and Anes Risks/Benef Reviewed Patient Risk: Intermediate Procedure Risk: Intermediate Anesthetic Plan Anesthetic Plan: GA Disposition: Standard PACU
--- NOTE | 2024-12-05 15:28 | HO.PSYCHPN ---
Subjective Subjective Date of Service: 12/05/24 Reason For Visit: severe depression psychosis si Subjective Notes: Conditional Voluntary Interim History: Patient case reviewed in treatment team chart reviewed patient seen. Patient continues with odd behavior will not brush her teeth no clear explanation not going into the shower stating she is worried that someone is going to take her things. On idiosyncratic behavior consent for ECT obtain by son ECT completed see ECT note Mental Status Exam Mental Status Exam Patient Appearance: Disheveled Patient Orientation: Person, Place and Situation Level of Consciousness: Awake and Alert Patient Behavior: Appropriate Mood Description: Depressed Affect Description: Withdrawn, Fearful and Blunted Patient Cognition Impaired: No Ability to Follow Directions: Good Speech Pattern: Clear and Delayed Memory Description: Intact, Episodic Impaired and Working Impaired Hallucinations: None Delusions: Paranoid Ideation Thought Process: Intact Thought Content: positive for Perseveration Depressive Symptoms: Increased Anxiety, Isolating-Friends/Family and Loss of Energy Judgement: Fair Judgement and Insight: slowed mentation paranoid concerns poverty of content does answer questions could answer specific questions regarding her childhood with some fluid any Diagnostics Vital Signs (24Hr): Vital Signs - 24 hr 12/04/24 15:34 12/04/24 20:00 12/05/24 08:50 Temperature 98.6 F 98.5 F 98.8 F Pulse Rate 92 75 84 Respiratory Rate 18 18 16 Blood Pressure 133/63 159/70 H 139/64 Pulse Oximetry 97 98 96 Oxygen Delivery Method Room Air Room Air Room Air Oxygen Flow Rate 12/05/24 11:55 12/05/24 12:42 12/05/24 14:15 Temperature 98 F 98.5 F 97.1 F Pulse Rate 97 93 86 Respiratory Rate 16 12 18 Blood Pressure 143/66 H 151/78 H 154/76 H Pulse Oximetry 95 98 99 Oxygen Delivery Method Room Air Room Air Nasal Cannula Oxygen Flow Rate 2 12/05/24 14:20 12/05/24 14:25 12/05/24 14:30 Temperature Pulse Rate 84 92 97 Respiratory Rate 16 16 16 Blood Pressure 161/87 H 171/84 H 181/87 H Pulse Oximetry 99 99 98 Oxygen Delivery Method Nasal Cannula Nasal Cannula Room Air Oxygen Flow Rate 2 2 12/05/24 14:45 12/05/24 15:00 Temperature 97.0 F Pulse Rate 95 92 Respiratory Rate 17 16 Blood Pressure 175/79 H 172/82 H Pulse Oximetry 96 97 Oxygen Delivery Method Room Air Room Air Oxygen Flow Rate BMI result Body Mass Index 22.4 Labs 11/10/24 07:56 11/10/24 07:56 Medications Medications Current Medications Acetaminophen (Acetaminophen 325 Mg Tablet) 650 mg PO Q6H PRN PRN Reason: Headache/Pain, Scale 1-10 Al Hydroxide/Mg Hydroxide (Magnesium Hydrox/Alum Hydrox 30 Ml Oral.Susp) 30 ml PO Q6H PRN PRN Reason: Heartburn/Nausea Amlodipine Besylate (Amlodipine Besylate 5 Mg Tablet) 5 mg PO DAILY [facility]; Protocol Last Admin: 12/05/24 08:52 Dose: 5 mg Aspirin (Aspirin Enteric Coated 81 Mg Tablet.Dr) 81 mg PO DAILY [facility] Last Admin: 12/05/24 12:35 Dose: Not Given Atorvastatin Calcium (Atorvastatin Calcium 10 Mg Tablet) 10 mg PO BEDTIME DENISSE Brexpiprazole (Brexpiprazole 1 Mg Tablet) 1 mg PO DAILY [facility] Last Admin: 12/05/24 12:35 Dose: Not Given Docusate Sodium (Docusate Sodium 100 Mg Capsule) 100 mg PO BEDTIME [facility] Last Admin: 12/04/24 21:10 Dose: 100 mg Lorazepam (Lorazepam 0.5 Mg Tablet) 0.5 mg PO Q4H PRN PRN Reason: Anxiety Last Admin: 12/03/24 15:26 Dose: 0.5 mg Magnesium Hydroxide (Milk Of Magnesia 30 Ml Oral.Susp) 30 ml PO DAILY PRN PRN Reason: Constipation Olanzapine (Olanzapine 5 Mg Tablet) 5 mg PO BEDTIME [facility] Last Admin: 12/04/24 21:10 Dose: 5 mg Senna (Sennosides 8.6 Mg Tablet) 8.6 mg PO BEDTIME [facility] Last Admin: 12/04/24 21:10 Dose: 8.6 mg Trazodone HCl (Trazodone Hcl 50 Mg Tablet) 50 mg PO BEDTIME MRX1 PRN PRN Reason: Insomnia Last Admin: 12/04/24 21:10 Dose: 50 mg Venlafaxine HCl (Venlafaxine Hcl Er 37.5 Mg Cap.Er.24h) 37.5 mg PO DAILY [facility] Last Admin: 12/05/24 12:35 Dose: Not Given Vortioxetine (Vortioxetine Hydrobromide 10 Mg Tablet) 10 mg PO DAILY [facility] Last Admin: 12/05/24 12:36 Dose: Not Given Allergies Allergies Allergy/AdvReac Type Severity Reaction Status Date / Time No Known Allergies Allergy Verified 11/20/24 06:27 [No Known Allergies*] Assessment & Plan Assessment & Plan (1) HLD (hyperlipidemia): Status: Acute Code(s): E78.5 - Hyperlipidemia, unspecified Plan Patient is an 83-year-old female with a PMH significant for MDD, OCD, and history of left ankle fracture with ORIF who was admitted to [facility] with increased depression, decreased appetite, and medication noncompliance. 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 OP f/u with Dr. Hensley. Hypertension/Prediabetes/HLD Blood pressures have been stable Continue on amlodipine daily Patient taking a daily aspirin Labs reviewed 11/10/2024, no anemia, renal function stable Hemoglobin A1c 5.5. Encouraged activity Noted to have elevated cholesterol, total cholesterol 265, LDL 154, HDL 98 Will start low-dose atorvastatin 10 mg daily 11/2024 Patient clearly less depressed but remains suspicious of others with paranoid concerns idiosyncratic behavior caring certain wound and clothing Patient educated on: medication risk/benefits Guardian/Caregiver educated on: ECT Informed Consent: further education needed Reason for continued inpatient stay Substantial Risk for: inability to function and rapid decompensation Time Spent With Patient Time: Total time managing care of this patient today ____ minutes.
--- NOTE | 2024-12-05 17:40 | PC.NURSE ---
Patient returned from ECT at 1545. Vital signs [id number]/63 with O2 Sat 96%. Per Dr. Chambers OK to give am meds now at 9931, taken off of hold.
[2024-12-05] MEDS: Aspirin Enteric Coated 81 MG TABLET.DR PO (17:44)
[2024-12-05] MEDS: Vortioxetine Hydrobromide 10 MG TABLET PO (17:45)
[2024-12-05] MEDS: Brexpiprazole 1 MG TABLET PO (17:45)
[2024-12-05] MEDS: Venlafaxine HCl ER 37.5 MG CAP.ER.24H PO (17:45)
[2024-12-05] MEDS: OLANZapine 5 MG TABLET PO (20:26)
[2024-12-05] MEDS: Atorvastatin Calcium 10 MG TABLET PO (20:26)
[2024-12-05] MEDS: Sennosides 8.6 MG TABLET PO (20:26)
[2024-12-05] MEDS: Docusate Sodium 100 MG CAPSULE PO (20:26)
[2024-12-06 20:00] VITALS: BP 136/60; PULSE 80; RESP 16; TEMP 36.3; O2SAT 98
[2024-12-06] MEDS: Docusate Sodium 100 MG CAPSULE PO (20:40)
[2024-12-06] MEDS: OLANZapine 5 MG TABLET PO (20:40)
[2024-12-06] MEDS: Sennosides 8.6 MG TABLET PO (20:40)
[2024-12-06] MEDS: Atorvastatin Calcium 10 MG TABLET PO (20:40)
--- NOTE | 2024-12-06 22:14 | P.PNPSI_ITS ---
Subjective Subjective Date of Service: 11/29/24 Reason For Visit: severe depression psychosis si Subjective Notes: Conditional Voluntary Interim History: pt withdrawn but some ing OOB and social at ti,es Mental Status Exam Mental Status Exam Patient Appearance: Disheveled Patient Orientation: Person, Place and Situation Level of Consciousness: Awake and Alert Patient Behavior: Appropriate Mood Description: Depressed Affect Description: Blunted Patient Cognition Impaired: No Ability to Follow Directions: Good Speech Pattern: Clear and Delayed Memory Description: Intact, Episodic Impaired and Working Impaired Hallucinations: None Delusions: Paranoid Ideation Thought Process: Intact Thought Content: positive for Perseveration Depressive Symptoms: Increased Anxiety, Isolating-Friends/Family and Loss of Energy Judgement: Fair Judgement and Insight: slowed mentation paranoid concerns poverty of content does answer questions could answer specific questions regarding her childhood with some fluid any Diagnostics Vital Signs (24Hr): BMI result Body Mass Index 22.4 Labs 11/10/24 07:56 11/10/24 07:56 Medications Medications Current Medications Acetaminophen (Acetaminophen 325 Mg Tablet) 650 mg PO Q6H PRN PRN Reason: Headache/Pain, Scale 1-10 Al Hydroxide/Mg Hydroxide (Magnesium Hydrox/Alum Hydrox 30 Ml Oral.Susp) 30 ml PO Q6H PRN PRN Reason: Heartburn/Nausea Amlodipine Besylate (Amlodipine Besylate 5 Mg Tablet) 5 mg PO DAILY [facility]; Protocol Last Admin: 12/06/24 12:50 Dose: Not Given Aspirin (Aspirin Enteric Coated 81 Mg Tablet.Dr) 81 mg PO DAILY [facility] Last Admin: 12/06/24 12:51 Dose: Not Given Atorvastatin Calcium (Atorvastatin Calcium 10 Mg Tablet) 10 mg PO BEDTIME [facility] Last Admin: 12/06/24 20:40 Dose: 10 mg Brexpiprazole (Brexpiprazole 1 Mg Tablet) 1 mg PO DAILY [facility] Last Admin: 12/06/24 12:51 Dose: Not Given Docusate Sodium (Docusate Sodium 100 Mg Capsule) 100 mg PO BEDTIME [facility] Last Admin: 12/06/24 20:40 Dose: 100 mg Lorazepam (Lorazepam 0.5 Mg Tablet) 0.5 mg PO Q4H PRN PRN Reason: Anxiety Last Admin: 12/03/24 15:26 Dose: 0.5 mg Magnesium Hydroxide (Milk Of Magnesia 30 Ml Oral.Susp) 30 ml PO DAILY PRN PRN Reason: Constipation Olanzapine (Olanzapine 5 Mg Tablet) 5 mg PO BEDTIME [facility] Last Admin: 12/06/24 20:40 Dose: 5 mg Senna (Sennosides 8.6 Mg Tablet) 8.6 mg PO BEDTIME [facility] Last Admin: 12/06/24 20:40 Dose: 8.6 mg Trazodone HCl (Trazodone Hcl 50 Mg Tablet) 50 mg PO BEDTIME MRX1 PRN PRN Reason: Insomnia Last Admin: 12/04/24 21:10 Dose: 50 mg Venlafaxine HCl (Venlafaxine Hcl Er 37.5 Mg Cap.Er.24h) 37.5 mg PO DAILY [facility] Last Admin: 12/06/24 12:51 Dose: Not Given Vortioxetine (Vortioxetine Hydrobromide 10 Mg Tablet) 10 mg PO DAILY [facility] Last Admin: 12/06/24 12:51 Dose: Not Given Allergies Allergies Allergy/AdvReac Type Severity Reaction Status Date / Time No Known Allergies Allergy Verified 11/20/24 06:27 [No Known Allergies*] Assessment & Plan Assessment & Plan (1) HLD (hyperlipidemia): Status: Acute Code(s): E78.5 - Hyperlipidemia, unspecified Plan Patient is an 83-year-old female with a PMH significant for MDD, OCD, and history of left ankle fracture with ORIF who was admitted to [facility] with increased depression, decreased appetite, and medication noncompliance. 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 OP f/u with Dr. Hensley. Hypertension/Prediabetes/HLD Blood pressures have been stable Continue on amlodipine daily Patient taking a daily aspirin Labs reviewed 11/10/2024, no anemia, renal function stable Hemoglobin A1c 5.5. Encouraged activity Noted to have elevated cholesterol, total cholesterol 265, LDL 154, HDL 98 Will start low-dose atorvastatin 10 mg daily 11/2024 Patient clearly less depressed but remains suspicious of others with paranoid concerns idiosyncratic behavior caring certain wound and clothing 12/06/24 monitor response to ect consider change to cloz if remains psychitic Reason for continued inpatient stay Substantial Risk for: inability to function, rapid decompensation and med/psych decompensation Time Spent With Patient Time: Total time managing care of this patient today ____ minutes.
[2024-12-07 08:00] VITALS: BP 118/65; PULSE 81; RESP 16; TEMP 36.8; O2SAT 97
[2024-12-07 08:08] VITALS: BP 118/65
[2024-12-07] MEDS: amLODIPine Besylate 5 MG TABLET PO (08:08)
[2024-12-07] MEDS: Aspirin Enteric Coated 81 MG TABLET.DR PO (08:08)
[2024-12-07] MEDS: Brexpiprazole 1 MG TABLET PO (08:09)
[2024-12-07] MEDS: Vortioxetine Hydrobromide 10 MG TABLET PO (08:09)
[2024-12-07] MEDS: Venlafaxine HCl ER 37.5 MG CAP.ER.24H PO (08:09)
[2024-12-07 12:53] VITALS: BMI 21.9
[2024-12-07 20:00] VITALS: BP 139/66; PULSE 79; RESP 6; TEMP 36.5; O2SAT 97
[2024-12-07] MEDS: OLANZapine 5 MG TABLET PO (21:00)
[2024-12-07] MEDS: Docusate Sodium 100 MG CAPSULE PO (21:00)
[2024-12-07] MEDS: Sennosides 8.6 MG TABLET PO (21:01)
[2024-12-07] MEDS: Atorvastatin Calcium 10 MG TABLET PO (21:01)
--- NOTE | 2024-12-07 21:48 | P.PNPSI_ITS ---
Subjective Subjective Date of Service: 12/07/24 Reason For Visit: severe depression psychosis si Subjective Notes: Conditional Voluntary Healthcare Proxy: Yes Interim History: pt seen in f/u case reviewed tx team. Pts mood has improved odd thinking guarded ness remain . More social on the unit Some ambivalence Medication Compliance: Yes Review of Systems Medical Review of Systems: unchanged Mental Status Exam Mental Status Exam Patient Appearance: Disheveled Patient Orientation: Person, Place and Situation Level of Consciousness: Awake and Alert Patient Behavior: Appropriate and Guarded Mood Description: Depressed Affect Description: Blunted Patient Cognition Impaired: No Ability to Follow Directions: Good Speech Pattern: Clear and Delayed Memory Description: Intact, Episodic Impaired and Working Impaired Hallucinations: None Delusions: Paranoid Ideation Thought Process: Intact Thought Content: positive for Perseveration Depressive Symptoms: Increased Anxiety, Isolating-Friends/Family and Loss of Energy Judgement: Fair Judgement and Insight: slowed mentation paranoid concerns poverty of content generally less depressed less intense PI Diagnostics Vital Signs (24Hr): Vital Signs - 24 hr 12/07/24 08:00 12/07/24 08:08 Temperature 98.2 F Pulse Rate 81 Respiratory Rate 16 Blood Pressure 118/65 118/65 Pulse Oximetry 97 Oxygen Delivery Method Room Air BMI result Body Mass Index 21.9 Labs 11/10/24 07:56 11/10/24 07:56 Medications Medications Current Medications Acetaminophen (Acetaminophen 325 Mg Tablet) 650 mg PO Q6H PRN PRN Reason: Headache/Pain, Scale 1-10 Al Hydroxide/Mg Hydroxide (Magnesium Hydrox/Alum Hydrox 30 Ml Oral.Susp) 30 ml PO Q6H PRN PRN Reason: Heartburn/Nausea Amlodipine Besylate (Amlodipine Besylate 5 Mg Tablet) 5 mg PO DAILY [facility]; Protocol Last Admin: 12/07/24 08:08 Dose: 5 mg Aspirin (Aspirin Enteric Coated 81 Mg Tablet.) 81 mg PO DAILY [facility] Last Admin: 12/07/24 08:08 Dose: 81 mg Atorvastatin Calcium (Atorvastatin Calcium 10 Mg Tablet) 10 mg PO BEDTIME [facility] Last Admin: 12/07/24 21:01 Dose: 10 mg Brexpiprazole (Brexpiprazole 1 Mg Tablet) 1 mg PO DAILY [facility] Last Admin: 12/07/24 08:09 Dose: 1 mg Docusate Sodium (Docusate Sodium 100 Mg Capsule) 100 mg PO BEDTIME [facility] Last Admin: 12/07/24 21:00 Dose: 100 mg Lorazepam (Lorazepam 0.5 Mg Tablet) 0.5 mg PO Q4H PRN PRN Reason: Anxiety Last Admin: 12/03/24 15:26 Dose: 0.5 mg Magnesium Hydroxide (Milk Of Magnesia 30 Ml Oral.Susp) 30 ml PO DAILY PRN PRN Reason: Constipation Olanzapine (Olanzapine 5 Mg Tablet) 5 mg PO BEDTIME [facility] Last Admin: 12/07/24 21:00 Dose: 5 mg Senna (Sennosides 8.6 Mg Tablet) 8.6 mg PO BEDTIME [facility] Last Admin: 12/07/24 21:01 Dose: 8.6 mg Trazodone HCl (Trazodone Hcl 50 Mg Tablet) 50 mg PO BEDTIME MRX1 PRN PRN Reason: Insomnia Last Admin: 12/04/24 21:10 Dose: 50 mg Venlafaxine HCl (Venlafaxine Hcl Er 37.5 Mg Cap.Er.24h) 37.5 mg PO DAILY [facility] Last Admin: 12/07/24 08:09 Dose: 37.5 mg Vortioxetine (Vortioxetine Hydrobromide 10 Mg Tablet) 10 mg PO DAILY [facility] Last Admin: 12/07/24 08:09 Dose: 10 mg Allergies Allergies Allergy/AdvReac Type Severity Reaction Status Date / Time No Known Allergies Allergy Verified 11/20/24 06:27 [No Known Allergies*] Assessment & Plan Assessment & Plan (1) HLD (hyperlipidemia): Status: Acute Code(s): E78.5 - Hyperlipidemia, unspecified Plan Patient is an 83-year-old female with a PMH significant for MDD, OCD, and history of left ankle fracture with ORIF who was admitted to [facility] with increased depression, decreased appetite, and medication noncompliance. 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 OP f/u with Dr. Hensley. Hypertension/Prediabetes/HLD Blood pressures have been stable Continue on amlodipine daily Patient taking a daily aspirin Labs reviewed 11/10/2024, no anemia, renal function stable Hemoglobin A1c 5.5. Encouraged activity Noted to have elevated cholesterol, total cholesterol 265, LDL 154, HDL 98 Will start low-dose atorvastatin 10 mg daily 11/2024 Patient clearly less depressed but remains suspicious of others with paranoid concerns idiosyncratic behavior caring certain wound and clothing 12/06/24 monitor response to ect consider change to cloz if remains psychitic 12/07/2024 cont ect some improvement noted still with pschosis hcp has been invoked Patient educated on: diagnosis and medication risk/benefits Informed Consent: further education needed Reason for continued inpatient stay Substantial Risk for: inability to function, rapid decompensation and med/psych decompensation Time Spent With Patient Time: Total time managing care of this patient today ____ minutes.
[2024-12-08] VITALS (11 sets, daily range): BP systolic 126–164; BP diastolic 62–79; PULSE 73–84; RESP 15–16; TEMP 36.3–37.5; O2SAT 92–99
--- NOTE | 2024-12-08 06:45 | HO.ANESPROP2 ---
[facility] Active Problems Active Problems: All Active Problems HLD (hyperlipidemia) (Acute) Pre-op evaluation (Acute) Parkinsonism (Acute) Dementia, vascular (Acute) Major depressive disorder, recurrent, severe with psychotic features (Acute) Depression (Acute) Abnormal finding on EKG (Acute) Major depressive disorder, recurrent severe without psychotic features (Acute) OCD (obsessive compulsive disorder) (Acute) Past Medical History Medical History History of fracture of left ankle OCD (obsessive compulsive disorder) Major depressive disorder, recurrent severe without psychotic features S/P ECT (electroconvulsive therapy) Functional capacity: independent ambulation Family History Family History Mother CHF (congestive heart failure) Family history of problems with anesthesia: No Surgical History Surgical History No history of previous surgery History of Problems with Anesthesia: No Social History Social History Household Members: None Housing: Apartment Housing Other:: Half-Way community Do you presently have visiting nurse or other home services: Yes ([employer] [facility]) Patient Tobacco Use Status: Never used Tobacco e-Cigarette/Vaping Use: Never Used service: No Sexual orientation: Straight/Heterosexual Meds Allergies Allergy/AdvReac Type Severity Reaction Status Date / Time No Known Allergies Allergy Verified 11/20/24 06:27 [No Known Allergies*] Active Medications: Current Medications Acetaminophen (Acetaminophen 325 Mg Tablet) 650 mg PO Q6H PRN PRN Reason: Headache/Pain, Scale 1-10 Al Hydroxide/Mg Hydroxide (Magnesium Hydrox/Alum Hydrox 30 Ml Oral.Susp) 30 ml PO Q6H PRN PRN Reason: Heartburn/Nausea Amlodipine Besylate (Amlodipine Besylate 5 Mg Tablet) 5 mg PO DAILY [facility]; Protocol Last Admin: 12/07/24 08:08 Dose: 5 mg Aspirin (Aspirin Enteric Coated 81 Mg Tablet.Dr) 81 mg PO DAILY [facility] Last Admin: 12/07/24 08:08 Dose: 81 mg Atorvastatin Calcium (Atorvastatin Calcium 10 Mg Tablet) 10 mg PO BEDTIME [facility] Last Admin: 12/07/24 21:01 Dose: 10 mg Brexpiprazole (Brexpiprazole 1 Mg Tablet) 1 mg PO DAILY [facility] Last Admin: 12/07/24 08:09 Dose: 1 mg Docusate Sodium (Docusate Sodium 100 Mg Capsule) 100 mg PO BEDTIME [facility] Last Admin: 12/07/24 21:00 Dose: 100 mg Lactated Ringer's (Lr) 1,000 mls @ 50 mls/hr IVCONT .Q20H [facility] Lorazepam (Lorazepam 0.5 Mg Tablet) 0.5 mg PO Q4H PRN PRN Reason: Anxiety Last Admin: 12/03/24 15:26 Dose: 0.5 mg Magnesium Hydroxide (Milk Of Magnesia 30 Ml Oral.Susp) 30 ml PO DAILY PRN PRN Reason: Constipation Olanzapine (Olanzapine 5 Mg Tablet) 5 mg PO BEDTIME [facility] Last Admin: 12/07/24 21:00 Dose: 5 mg Senna (Sennosides 8.6 Mg Tablet) 8.6 mg PO BEDTIME [facility] Last Admin: 12/07/24 21:01 Dose: 8.6 mg Trazodone HCl (Trazodone Hcl 50 Mg Tablet) 50 mg PO BEDTIME MRX1 PRN PRN Reason: Insomnia Last Admin: 12/04/24 21:10 Dose: 50 mg Venlafaxine HCl (Venlafaxine Hcl Er 37.5 Mg Cap.Er.24h) 37.5 mg PO DAILY [facility] Last Admin: 12/07/24 08:09 Dose: 37.5 mg Vortioxetine (Vortioxetine Hydrobromide 10 Mg Tablet) 10 mg PO DAILY [facility] Last Admin: 12/07/24 08:09 Dose: 10 mg Home Medications ?Medication ?Instructions ?Recorded ?Confirmed ?Last Taken ?Type acetaminophen 500 mg tablet 500 mg PO TID PRN pain 11/09/24 11/09/24 Unknown History (Acetaminophen Extra Strength) docusate sodium 100 mg capsule 100 mg PO BEDTIME constipation 11/09/24 11/09/24 11/07/24 20:00 History (Colace) memantine 7 mg capsule 7 mg PO DAILY 11/09/24 11/09/24 11/08/24 08:00 History sprinkle,extended release 24hr sennosides 8.6 mg tablet (senna) 8.6 mg PO BEDTIME 11/09/24 11/09/24 11/07/24 20:00 History trazodone 50 mg tablet 50 mg PO BEDTIME 11/09/24 11/09/24 Unknown History Exam Height,Weight and Vital Signs: Height 5 ft 3 in Weight 56.155 kg Last Vital Signs Temp 97.7 F 12/07/24 20:00 Pulse 79 12/07/24 20:00 Resp 6 L 12/07/24 20:00 BP 139/66 12/07/24 20:00 Pulse Ox 97 12/07/24 20:00 O2 Del Method Room Air 12/07/24 20:00 O2 Flow Rate 2 12/05/24 14:25 Pertinent Lab Results Pertinent Lab Results: Laboratory Tests 11/08/24 11/08/24 11/10/24 19:58 21:01 07:56 WBC 9.6 8.9 RBC 4.65 5.14 Hgb 14.2 15.9 Hct 41.4 44.8 MCV 89.0 87.2 MCH 30.5 30.9 MCHC 34.3 35.5 H RDW 13.6 13.2 Plt Count 229 240 MPV 10.1 10.7 Immature Gran % (Auto) 0.2 0.3 Neut % (Auto) 64.3 63.1 Lymph % (Auto) 25.6 27.7 [place] % (Auto) 8.8 8.0 Eos % (Auto) 0.6 0.6 Baso % (Auto) 0.5 0.3 Lymph # (Auto) 2.5 2.5 [place] # (Auto) 0.9 0.7 Eos # (Auto) 0.1 0.1 Baso # (Auto) 0.1 0.0 Abs Immat Gran (auto) 0.02 0.03 Absolute Neuts (auto) 6.2 5.6 Absolute Nucleated RBC 0.000 0.000 Nucleated RBC % (auto) 0.0 0.0 Sodium 135 135 Potassium 4.4 4.0 Chloride 99 101 Carbon Dioxide 27 25 Anion Gap 13 13 BUN 19 H 16 Creatinine 0.92 0.78 Estim Creat Clear Calc 38.9 46.0 Estimated GFR 58 > 60 Random Glucose 122 H 87 Estimat Average Glucose 111 Hemoglobin A1c % 5.5 Calcium 9.4 9.3 Magnesium 2.1 Total Bilirubin 0.4 0.8 Direct Bilirubin 0.1 AST 24 25 ALT 26 16 Alkaline Phosphatase 82 69 Total Protein 6.6 6.4 L Albumin 4.3 4.2 Triglycerides 64 Cholesterol 264 H LDL Cholesterol, Calc 154 H HDL Cholesterol 98 Vitamin B12 567 Folate 9.3 TSH 2.75 Urine Color Yellow Urine Appearance Clear Urine pH 5.5 Ur Specific [place] 1.020 Urine Protein Negative Urine Glucose (UA) Negative Urine Ketones Trace Urine Blood Negative Urine Nitrite Negative Ur Leukocyte Esterase Moderate (2+) H Urine RBC 0-2 Urine WBC 21-50 H Ur Squamous Epith Cells 3-5 Urine Bacteria None Seen Hyaline Casts 0-2 Urine Opiates Screen Not Detected Ur Buprenorphine Scrn Not Detected Ur Oxycodone Screen Not Detected Urine Methadone Screen Not Detected Urine Fentanyl Screen Not Detected Ur Barbiturates Screen Not Detected Ur Phencyclidine Scrn Not Detected Ur Amphetamines Screen Not Detected U Benzodiazepines Scrn Not Detected Urine Cocaine Screen Not Detected U Marijuana (THC) Screen Not Detected Ethyl Alcohol < 10 11/21/24 12:30 WBC RBC Hgb Hct MCV MCH MCHC RDW Plt Count MPV Immature Gran % (Auto) Neut % (Auto) Lymph % (Auto) [place] % (Auto) Eos % (Auto) Baso % (Auto) Lymph # (Auto) [place] # (Auto) Eos # (Auto) Baso # (Auto) Abs Immat Gran (auto) Absolute Neuts (auto) Absolute Nucleated RBC Nucleated RBC % (auto) Sodium Potassium Chloride Carbon Dioxide Anion Gap BUN Creatinine Estim Creat Clear Calc Estimated GFR Random Glucose Estimat Average Glucose Hemoglobin A1c % Calcium Magnesium Total Bilirubin Direct Bilirubin AST ALT Alkaline Phosphatase Total Protein Albumin Triglycerides Cholesterol LDL Cholesterol, Calc HDL Cholesterol Vitamin B12 Folate TSH Urine Color Yellow Urine Appearance Clear Urine pH 5.5 Ur Specific [place] 1.015 Urine Protein Negative Urine Glucose (UA) Negative Urine Ketones Trace Urine Blood Negative Urine Nitrite Negative Ur Leukocyte Esterase Trace H Urine RBC 0-2 Urine WBC 0-5 Ur Squamous Epith Cells 0-2 Urine Bacteria None Seen Hyaline Casts 0-2 Urine Opiates Screen Ur Buprenorphine Scrn Ur Oxycodone Screen Urine Methadone Screen Urine Fentanyl Screen Ur Barbiturates Screen Ur Phencyclidine Scrn Ur Amphetamines Screen U Benzodiazepines Scrn Urine Cocaine Screen U Marijuana (THC) Screen Ethyl Alcohol Airway Mallampati Class: II TM Dist: >3cm Neck ROM: Full Heart: rrr Lungs: cta Assessment and Plan Assessment Anesthesia Assessment: Anesthesia Plan Discussed and Chart Reviewed Final Anesthetic Review Family History of Problems with Anesthesia: No History of Problems with Anesthesia: No NPO: Yes ASA Class: III Final Preanesthetic Review: No Changes in Pt Med Stat, Meds/Allgs Chart Reviewed and Consent Obtained/Reviewed Patient Risk: Intermediate Procedure Risk: Intermediate Anesthetic Plan Anesthetic Plan: GA Disposition: Standard PACU
[2024-12-08] MEDS: Lactated Ringers 1,000 ML 50 ML IVCONT (06:50)
--- NOTE | 2024-12-08 07:16 | MHC.SHP ---
Pre-Procedural Eval Section A - 24 Hr Update-Section A only Date of Service: 12/08/24 Changes since office visit: Yes Changes in Medication and Yes Patient answered all questions; No Cold of Flu in the past 2 weeks and No New Medical Problems The patient has been examined within 24 hours of the surgical procedure. The History & Physical has been completed within 30 days and I have reviewed it.: Yes Section B - Complete if H&P > 30 days Chief Complaint: severe depression psychosis si Allergies: Allergies Allergy/AdvReac Type Severity Reaction Status Date / Time No Known Allergies Allergy Verified 11/20/24 06:27 [No Known Allergies*] Plan I have reviewed the history and physical and performed a pertinent physical examination on my patient. No changes have occurred unless specified. Time Spent With Patient Time: Total time managing care of this patient today ____ minutes.
[2024-12-08] MEDS: Vortioxetine Hydrobromide 10 MG TABLET PO (08:53)
[2024-12-08] MEDS: Aspirin Enteric Coated 81 MG TABLET.DR PO (08:53)
[2024-12-08] MEDS: Venlafaxine HCl ER 37.5 MG CAP.ER.24H PO (08:54)
[2024-12-08] MEDS: amLODIPine Besylate 5 MG TABLET PO (08:54)
[2024-12-08] MEDS: Brexpiprazole 1 MG TABLET PO (08:54)
--- NOTE | 2024-12-08 09:04 | PC.NURSE ---
Patient back from ECT about 8:30 am. Said, little dizzy , denies headache or any pain, denies N/V. VS: 97.4, P 84, BP 164/67, O2sat 96% on RA. Took meds as prescribed including BP med. Consumed 50% for breakfast. Assisted with ADLs, resting in bed at this time. Will continue to monitor.
--- NOTE | 2024-12-08 11:25 | PC.NURSE ---
BP re-check at 10 AM 138/64, P 83. Pt denies pain, denies dizziness or N/V. Will continue to monitor.
[2024-12-08] MEDS: Sennosides 8.6 MG TABLET PO (20:41)
[2024-12-08] MEDS: Docusate Sodium 100 MG CAPSULE PO (20:41)
[2024-12-08] MEDS: OLANZapine 7.5 MG TABLET PO (20:41)
[2024-12-08] MEDS: Atorvastatin Calcium 10 MG TABLET PO (20:41)
--- NOTE | 2024-12-08 22:39 | HO.ECTPROC ---
ECT Procedure Note Diagnosis/Treatment Date of Service: 12/08/24 Diagnosis: Major Depressive Disorder Previous ECT Date: 12/05/24 Current Treatment Number: 8 Treatment: Series Interval Clinical Notes: Pt with better grooming less depressed pos PI still suspicious Time: Total time managing care of this patient today ____ minutes. ECT Settings Device: THYMATRON DGx Electrode Placement: Right Unilateral Program/Pulse Width: 0.50 Energy Percent: 100 Seizure Duration By EEG (in seconds): 52 Medications Administration General Anesthetic: Etomidate (14) Muscle Relaxant: Succinylcholine (80) Ancillary Medications Miscillaneous Medications: Propofol (20) Airway Management Airway Management: Bag Mask Ventilation Treatment Recommendations No Changes Recommended: No change Notes: h Pt Tolerated Procedure w/o Issue: Yes
--- NOTE | 2024-12-08 22:39 | HO.PSYCHPN ---
Subjective Subjective Date of Service: 12/08/24 Reason For Visit: severe depression psychosis si Subjective Notes: Conditional Voluntary Healthcare Proxy: Yes Interim History: Patient seen psychiatric follow-up. ECT they went well see ECT note. Patient less depressed but remains problems with executive functioning unreal concerns guarded and suspicious of motivate Medication Compliance: Yes Attending Groups: Intermittent Mental Status Exam Mental Status Exam Patient Appearance: Disheveled Patient Orientation: Person, Place and Situation Level of Consciousness: Awake and Alert Patient Behavior: Appropriate and Guarded Mood Description: Depressed Affect Description: Blunted Patient Cognition Impaired: No Ability to Follow Directions: Good Speech Pattern: Clear and Delayed Memory Description: Intact, Episodic Impaired and Working Impaired Hallucinations: None Delusions: Paranoid Ideation Thought Process: Intact Thought Content: positive for Perseveration Depressive Symptoms: Increased Anxiety, Isolating-Friends/Family and Loss of Energy Judgement: Fair Judgement and Insight: slowed mentation paranoid concerns poverty of content generally less depressed less intense PI Diagnostics Vital Signs (24Hr): Vital Signs - 24 hr 12/08/24 06:49 12/08/24 07:37 12/08/24 07:42 Temperature 97.8 F 99.5 F Pulse Rate 82 81 74 Respiratory Rate 16 16 15 Blood Pressure 151/79 H 133/64 131/62 Pulse Oximetry 94 99 97 Oxygen Delivery Method Room Air Nasal Cannula with ETCO2 Nasal Cannula with ETCO2 Oxygen Flow Rate 2 2 12/08/24 07:47 12/08/24 07:52 12/08/24 08:07 Temperature 98 F Pulse Rate 73 73 79 Respiratory Rate 16 16 16 Blood Pressure 136/68 126/62 142/66 H Pulse Oximetry 97 96 96 Oxygen Delivery Method Nasal Cannula with ETCO2 Room Air Room Air Oxygen Flow Rate 2 12/08/24 08:30 12/08/24 08:54 12/08/24 08:58 Temperature 97.4 F 97.4 F Pulse Rate 84 84 Respiratory Rate 16 16 Blood Pressure 164/67 H 164/67 H 164/67 H Pulse Oximetry 96 96 Oxygen Delivery Method Room Air Oxygen Flow Rate 12/08/24 10:00 12/08/24 20:00 Temperature 98.8 F Pulse Rate 83 84 Respiratory Rate 16 16 Blood Pressure 138/64 133/62 Pulse Oximetry 92 Oxygen Delivery Method Room Air Oxygen Flow Rate BMI result Body Mass Index 21.9 Labs 11/10/24 07:56 11/10/24 07:56 Medications Medications Current Medications Acetaminophen (Acetaminophen 325 Mg Tablet) 650 mg PO Q6H PRN PRN Reason: Headache/Pain, Scale 1-10 Al Hydroxide/Mg Hydroxide (Magnesium Hydrox/Alum Hydrox 30 Ml Oral.Susp) 30 ml PO Q6H PRN PRN Reason: Heartburn/Nausea Amlodipine Besylate (Amlodipine Besylate 5 Mg Tablet) 5 mg PO DAILY [facility]; Protocol Last Admin: 12/08/24 08:54 Dose: 5 mg Aspirin (Aspirin Enteric Coated 81 Mg Tablet.Dr) 81 mg PO DAILY [facility] Last Admin: 12/08/24 08:53 Dose: 81 mg Atorvastatin Calcium (Atorvastatin Calcium 10 Mg Tablet) 10 mg PO BEDTIME [facility] Last Admin: 12/08/24 20:41 Dose: 10 mg Brexpiprazole (Brexpiprazole 1 Mg Tablet) 1 mg PO DAILY [facility] Docusate Sodium (Docusate Sodium 100 Mg Capsule) 100 mg PO BEDTIME [facility] Last Admin: 12/08/24 20:41 Dose: 100 mg Lorazepam (Lorazepam 0.5 Mg Tablet) 0.5 mg PO Q4H PRN PRN Reason: Anxiety Last Admin: 12/03/24 15:26 Dose: 0.5 mg Magnesium Hydroxide (Milk Of Magnesia 30 Ml Oral.Susp) 30 ml PO DAILY PRN PRN Reason: Constipation Naloxone HCl (Naloxone Hcl 0.4 Mg/Ml Vial) 0.04 mg IVPUSH Q5M PRN PRN Reason: Excessive sedation or RR < 8 Olanzapine (Olanzapine 7.5 Mg Tablet) 7.5 mg PO BEDTIME [facility] Last Admin: 12/08/24 20:41 Dose: 7.5 mg Senna (Sennosides 8.6 Mg Tablet) 8.6 mg PO BEDTIME [facility] Last Admin: 12/08/24 20:41 Dose: 8.6 mg Trazodone HCl (Trazodone Hcl 50 Mg Tablet) 50 mg PO BEDTIME MRX1 PRN PRN Reason: Insomnia Last Admin: 12/04/24 21:10 Dose: 50 mg Vortioxetine (Vortioxetine Hydrobromide 10 Mg Tablet) 10 mg PO DAILY [facility] Last Admin: 12/08/24 08:53 Dose: 10 mg Allergies Allergies Allergy/AdvReac Type Severity Reaction Status Date / Time No Known Allergies Allergy Verified 11/20/24 06:27 [No Known Allergies*] Assessment & Plan Assessment & Plan (1) HLD (hyperlipidemia): Status: Acute Code(s): E78.5 - Hyperlipidemia, unspecified Plan Patient is an 83-year-old female with a PMH significant for MDD, OCD, and history of left ankle fracture with ORIF who was admitted to [facility] with increased depression, decreased appetite, and medication noncompliance. 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 OP f/u with Dr. Hensley. Hypertension/Prediabetes/HLD Blood pressures have been stable Continue on amlodipine daily Patient taking a daily aspirin Labs reviewed 11/10/2024, no anemia, renal function stable Hemoglobin A1c 5.5. Encouraged activity Noted to have elevated cholesterol, total cholesterol 265, LDL 154, HDL 98 Will start low-dose atorvastatin 10 mg daily 11/2024 Patient clearly less depressed but remains suspicious of others with paranoid concerns idiosyncratic behavior caring certain wound and clothing 12/06/24 monitor response to ect consider change to cloz if remains psychitic 12/07/2024 cont ect some improvement noted still with pschosis hcp has been invoked 12/08/24 Patient less depressed but remains psychotic seems be responding either to ECT or Rexulti. Continues on Trintellix remains psychotic continue ECT Reason for continued inpatient stay Substantial Risk for: inability to function, rapid decompensation and med/psych decompensation Time Spent With Patient Time: Total time managing care of this patient today ____ minutes.
[2024-12-09 09:54] VITALS: BP 138/63; PULSE 92; RESP 16; TEMP 36.2; O2SAT 99
--- NOTE | 2024-12-09 10:02 | HO.PSYCHPN ---
Subjective Subjective Date of Service: 12/09/24 Reason For Visit: severe depression psychosis si Interim History: Patient tolerating ECT. Thinks it may be effective. Says her mood is so so . Denies SI. No behavioral problems. Slow to respond. Appears internally preoccupied. Odd affect. Review of Systems Review of Systems Denies any shortness of breath, chest pain, dizziness, lightheadedness, abdominal pain or discomfort, nausea vomiting or diarrhea. Yes all other systems are reviewed and are negative Mental Status Exam Mental Status Exam Narrative: pleasant. Engaged. Appropriately dressed and presented. Fair hygiene. There is some delay in answering questions and thought form, which might be related to cognition, treatment side effects, mood or psychosis. Endorses feeling anxious secondary to delusional beliefs. Denies hallucinations but does appear internally preoccupied. Has paranoid delusions regarding staff, other patients being part of reality TV show and family conspiring against her. No SI or HI. Insight and judgment is limited. Patient Appearance: Disheveled Patient Orientation: Person, Place and Situation Level of Consciousness: Awake and Alert Patient Behavior: Appropriate and Guarded Mood Description: Depressed Affect Description: Blunted Patient Cognition Impaired: No Ability to Follow Directions: Good Speech Pattern: Clear and Delayed Memory Description: Intact, Episodic Impaired and Working Impaired Diagnostics Vital Signs (24Hr): Vital Signs - 24 hr 12/08/24 20:00 12/09/24 09:54 Temperature 98.8 F 97.2 F Pulse Rate 84 92 Respiratory Rate 16 16 Blood Pressure 133/62 138/63 Pulse Oximetry 92 99 Oxygen Delivery Method Room Air Room Air BMI result Body Mass Index 21.9 Labs 11/10/24 07:56 11/10/24 07:56 Medications Medications Current Medications Acetaminophen (Acetaminophen 325 Mg Tablet) 650 mg PO Q6H PRN PRN Reason: Headache/Pain, Scale 1-10 Al Hydroxide/Mg Hydroxide (Magnesium Hydrox/Alum Hydrox 30 Ml Oral.Susp) 30 ml PO Q6H PRN PRN Reason: Heartburn/Nausea Amlodipine Besylate (Amlodipine Besylate 5 Mg Tablet) 5 mg PO DAILY [facility]; Protocol Last Admin: 12/08/24 08:54 Dose: 5 mg Aspirin (Aspirin Enteric Coated 81 Mg Tablet.) 81 mg PO DAILY [facility] Last Admin: 12/08/24 08:53 Dose: 81 mg Atorvastatin Calcium (Atorvastatin Calcium 10 Mg Tablet) 10 mg PO BEDTIME [facility] Last Admin: 12/08/24 20:41 Dose: 10 mg Brexpiprazole (Brexpiprazole 1 Mg Tablet) 1 mg PO DAILY [facility] Docusate Sodium (Docusate Sodium 100 Mg Capsule) 100 mg PO BEDTIME [facility] Last Admin: 12/08/24 20:41 Dose: 100 mg Lorazepam (Lorazepam 0.5 Mg Tablet) 0.5 mg PO Q4H PRN PRN Reason: Anxiety Last Admin: 12/03/24 15:26 Dose: 0.5 mg Magnesium Hydroxide (Milk Of Magnesia 30 Ml Oral.Susp) 30 ml PO DAILY PRN PRN Reason: Constipation Naloxone HCl (Naloxone Hcl 0.4 Mg/Ml Vial) 0.04 mg IVPUSH Q5M PRN PRN Reason: Excessive sedation or RR < 8 Olanzapine (Olanzapine 7.5 Mg Tablet) 7.5 mg PO BEDTIME [facility] Last Admin: 12/08/24 20:41 Dose: 7.5 mg Senna (Sennosides 8.6 Mg Tablet) 8.6 mg PO BEDTIME [facility] Last Admin: 12/08/24 20:41 Dose: 8.6 mg Trazodone HCl (Trazodone Hcl 50 Mg Tablet) 50 mg PO BEDTIME MRX1 PRN PRN Reason: Insomnia Last Admin: 12/04/24 21:10 Dose: 50 mg Vortioxetine (Vortioxetine Hydrobromide 10 Mg Tablet) 10 mg PO DAILY [facility] Last Admin: 12/08/24 08:53 Dose: 10 mg Allergies Allergies Allergy/AdvReac Type Severity Reaction Status Date / Time No Known Allergies Allergy Verified 11/20/24 06:27 [No Known Allergies*] Assessment & Plan Assessment & Plan (1) HLD (hyperlipidemia): Status: Acute Code(s): E78.5 - Hyperlipidemia, unspecified Plan Patient is an 83-year-old female with a PMH significant for MDD, OCD, and history of left ankle fracture with ORIF who was admitted to [facility] with increased depression, decreased appetite, and medication noncompliance. 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 OP f/u with Dr. Hensley. Hypertension/Prediabetes/HLD Blood pressures have been stable Continue on amlodipine daily Patient taking a daily aspirin Labs reviewed 11/10/2024, no anemia, renal function stable Hemoglobin A1c 5.5. Encouraged activity Noted to have elevated cholesterol, total cholesterol 265, LDL 154, HDL 98 Will start low-dose atorvastatin 10 mg daily 11/2024 Patient clearly less depressed but remains suspicious of others with paranoid concerns idiosyncratic behavior caring certain wound and clothing 12/06/24 monitor response to ect consider change to cloz if remains psychitic 12/07/2024 cont ect some improvement noted still with pschosis hcp has been invoked 12/08/24 Patient less depressed but remains psychotic seems be responding either to ECT or Rexulti. Continues on Trintellix remains psychotic continue ECT 12/09: continue current management and treatment plan. Reason for continued inpatient stay Substantial Risk for: inability to function and rapid decompensation Time Spent With Patient Time: Total time managing care of this patient today ____ minutes.
[2024-12-09] MEDS: Vortioxetine Hydrobromide 10 MG TABLET PO (10:04)
[2024-12-09] MEDS: Aspirin Enteric Coated 81 MG TABLET.DR PO (10:04)
[2024-12-09] MEDS: Brexpiprazole 1 MG TABLET PO (10:04)
[2024-12-09] MEDS: amLODIPine Besylate 5 MG TABLET PO (10:04)
[2024-12-09 20:00] VITALS: BP 142/72; PULSE 96; TEMP 36.7; O2SAT 94
[2024-12-09] MEDS: Docusate Sodium 100 MG CAPSULE PO (21:04)
[2024-12-09] MEDS: OLANZapine 7.5 MG TABLET PO (21:04)
[2024-12-09] MEDS: Sennosides 8.6 MG TABLET PO (21:04)
[2024-12-09] MEDS: Atorvastatin Calcium 10 MG TABLET PO (21:04)
[2024-12-10 08:16] VITALS: BP 139/63; PULSE 77; RESP 16; TEMP 36.6; O2SAT 96
[2024-12-10] MEDS: Aspirin Enteric Coated 81 MG TABLET.DR PO (08:18)
[2024-12-10] MEDS: Brexpiprazole 1 MG TABLET PO (08:19)
[2024-12-10] MEDS: amLODIPine Besylate 5 MG TABLET PO (08:19)
[2024-12-10] MEDS: Vortioxetine Hydrobromide 10 MG TABLET PO (08:19)
--- NOTE | 2024-12-10 14:43 | HO.PSYCHPN ---
Subjective Subjective Date of Service: 12/10/24 Reason For Visit: severe depression psychosis si Interim History: Patient tolerating ECT. She says she is doing well today. Says she had a phonecall with a friend that made her anxious. Can't specifically say what about it was anxiety provoking. Denies SI. No behavioral problems. Slow to respond. Appears internally preoccupied. Odd affect. Review of Systems Review of Systems Denies any shortness of breath, chest pain, dizziness, lightheadedness, abdominal pain or discomfort, nausea vomiting or diarrhea. Yes all other systems are reviewed and are negative Mental Status Exam Mental Status Exam Narrative: pleasant. Engaged. Appropriately dressed and presented. Fair hygiene. There is some delay in answering questions and thought form, which might be related to cognition, treatment side effects, mood or psychosis. Endorses feeling anxious secondary to delusional beliefs. Denies hallucinations but does appear internally preoccupied. Has paranoid delusions regarding staff, other patients being part of reality TV show and family conspiring against her. No SI or HI. Insight and judgment is limited. Patient Appearance: Disheveled Patient Orientation: Person, Place and Situation Level of Consciousness: Awake and Alert Patient Behavior: Appropriate and Guarded Mood Description: Depressed Affect Description: Blunted Patient Cognition Impaired: No Ability to Follow Directions: Good Speech Pattern: Clear and Delayed Memory Description: Intact, Episodic Impaired and Working Impaired Diagnostics Vital Signs (24Hr): Vital Signs - 24 hr 12/09/24 20:00 12/10/24 08:16 Temperature 98.1 F 97.8 F Pulse Rate 96 77 Respiratory Rate 16 Blood Pressure 142/72 H 139/63 Pulse Oximetry 94 96 Oxygen Delivery Method Room Air Room Air BMI result Body Mass Index 21.9 Labs 11/10/24 07:56 11/10/24 07:56 Medications Medications Current Medications Acetaminophen (Acetaminophen 325 Mg Tablet) 650 mg PO Q6H PRN PRN Reason: Headache/Pain, Scale 1-10 Al Hydroxide/Mg Hydroxide (Magnesium Hydrox/Alum Hydrox 30 Ml Oral.Susp) 30 ml PO Q6H PRN PRN Reason: Heartburn/Nausea Amlodipine Besylate (Amlodipine Besylate 5 Mg Tablet) 5 mg PO DAILY [facility]; Protocol Last Admin: 12/10/24 08:19 Dose: 5 mg Aspirin (Aspirin Enteric Coated 81 Mg Tablet.) 81 mg PO DAILY [facility] Last Admin: 12/10/24 08:18 Dose: 81 mg Atorvastatin Calcium (Atorvastatin Calcium 10 Mg Tablet) 10 mg PO BEDTIME [facility] Last Admin: 12/09/24 21:04 Dose: 10 mg Brexpiprazole (Brexpiprazole 1 Mg Tablet) 1 mg PO DAILY [facility] Last Admin: 12/10/24 08:19 Dose: 1 mg Docusate Sodium (Docusate Sodium 100 Mg Capsule) 100 mg PO BEDTIME [facility] Last Admin: 12/09/24 21:04 Dose: 100 mg Lorazepam (Lorazepam 0.5 Mg Tablet) 0.5 mg PO Q4H PRN PRN Reason: Anxiety Last Admin: 12/03/24 15:26 Dose: 0.5 mg Magnesium Hydroxide (Milk Of Magnesia 30 Ml Oral.Susp) 30 ml PO DAILY PRN PRN Reason: Constipation Naloxone HCl (Naloxone Hcl 0.4 Mg/Ml Vial) 0.04 mg IVPUSH Q5M PRN PRN Reason: Excessive sedation or RR < 8 Olanzapine (Olanzapine 7.5 Mg Tablet) 7.5 mg PO BEDTIME [facility] Last Admin: 12/09/24 21:04 Dose: 7.5 mg Senna (Sennosides 8.6 Mg Tablet) 8.6 mg PO BEDTIME [facility] Last Admin: 12/09/24 21:04 Dose: 8.6 mg Trazodone HCl (Trazodone Hcl 50 Mg Tablet) 50 mg PO BEDTIME MRX1 PRN PRN Reason: Insomnia Last Admin: 12/04/24 21:10 Dose: 50 mg Vortioxetine (Vortioxetine Hydrobromide 10 Mg Tablet) 10 mg PO DAILY [facility] Last Admin: 12/10/24 08:19 Dose: 10 mg Allergies Allergies Allergy/AdvReac Type Severity Reaction Status Date / Time No Known Allergies Allergy Verified 11/20/24 06:27 [No Known Allergies*] Assessment & Plan Assessment & Plan (1) HLD (hyperlipidemia): Status: Acute Code(s): E78.5 - Hyperlipidemia, unspecified Plan Patient is an 83-year-old female with a PMH significant for MDD, OCD, and history of left ankle fracture with ORIF who was admitted to [facility] with increased depression, decreased appetite, and medication noncompliance. 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 OP f/u with Dr. Hensley. Hypertension/Prediabetes/HLD Blood pressures have been stable Continue on amlodipine daily Patient taking a daily aspirin Labs reviewed 11/10/2024, no anemia, renal function stable Hemoglobin A1c 5.5. Encouraged activity Noted to have elevated cholesterol, total cholesterol 265, LDL 154, HDL 98 Will start low-dose atorvastatin 10 mg daily 11/2024 Patient clearly less depressed but remains suspicious of others with paranoid concerns idiosyncratic behavior caring certain wound and clothing 12/06/24 monitor response to ect consider change to cloz if remains psychitic 12/07/2024 cont ect some improvement noted still with pschosis hcp has been invoked 12/08/24 Patient less depressed but remains psychotic seems be responding either to ECT or Rexulti. Continues on Trintellix remains psychotic continue ECT 12/09: continue current management and treatment plan. 12/10: continue current management and treatment plan. Reason for continued inpatient stay Substantial Risk for: inability to function and rapid decompensation Time Spent With Patient Time: Total time managing care of this patient today ____ minutes.
[2024-12-10 20:38] VITALS: BP 140/65; PULSE 78; RESP 18; TEMP 36.7; O2SAT 94
[2024-12-10] MEDS: Sennosides 8.6 MG TABLET PO (21:43)
[2024-12-10] MEDS: traZODone HCL 50 MG TABLET PO (21:44)
[2024-12-10] MEDS: Atorvastatin Calcium 10 MG TABLET PO (21:44)
[2024-12-10] MEDS: Docusate Sodium 100 MG CAPSULE PO (21:44)
[2024-12-10] MEDS: OLANZapine 7.5 MG TABLET PO (21:44)
[2024-12-11 08:53] VITALS: BP 123/54; PULSE 78; RESP 16; TEMP 36.1; O2SAT 97
[2024-12-11] MEDS: Aspirin Enteric Coated 81 MG TABLET.DR PO (08:57)
[2024-12-11] MEDS: Vortioxetine Hydrobromide 10 MG TABLET PO (08:57)
[2024-12-11] MEDS: amLODIPine Besylate 5 MG TABLET PO (08:57)
[2024-12-11] MEDS: Brexpiprazole 1 MG TABLET PO (09:01)
--- NOTE | 2024-12-11 09:35 | P.PNPSI_ITS ---
Subjective Subjective Date of Service: 12/11/24 Reason For Visit: severe depression psychosis si Interim History: Make sure you tell Dr. Chambers I am ready to go. Patient reports she is feeling angry today because she is still in the hospital. She appears paranoid today. On review of notes, her sone mentioned to RN that patient told her friend over a phonecall yesterday that she is part of a conspiracy with Dr. Chambers. Patient was asked yesterday about what was upsetting about a phone call she had with a friend but was guarded and paranoid about disclosing what the conversation was about. Patient tolerating ECT. Denies SI. No behavioral problems. Slow to respond. Appears internally preoccupied. Odd affect. Review of Systems Review of Systems Denies any shortness of breath, chest pain, dizziness, lightheadedness, abdominal pain or discomfort, nausea vomiting or diarrhea. Yes all other systems are reviewed and are negative Mental Status Exam Mental Status Exam Narrative: pleasant. Engaged. Appropriately dressed and presented. Fair hygiene. There is some delay in answering questions and thought form, which might be related to cognition, treatment side effects, mood or psychosis. Endorses feeling anxious secondary to delusional beliefs. Denies hallucinations but does appear internally preoccupied. Has paranoid delusions regarding staff, other patients being part of reality TV show and family conspiring against her. No SI or HI. Insight and judgment is limited. Patient Appearance: Disheveled Patient Orientation: Person, Place and Situation Level of Consciousness: Awake and Alert Patient Behavior: Appropriate and Guarded Mood Description: Depressed Affect Description: Blunted Patient Cognition Impaired: No Ability to Follow Directions: Good Speech Pattern: Clear and Delayed Memory Description: Intact, Episodic Impaired and Working Impaired Diagnostics Vital Signs (24Hr): Vital Signs - 24 hr 12/10/24 20:38 Temperature 98.1 F Pulse Rate 78 Respiratory Rate 18 Blood Pressure 140/65 H Pulse Oximetry 94 Oxygen Delivery Method Room Air BMI result Body Mass Index 21.9 Labs 11/10/24 07:56 11/10/24 07:56 Medications Medications Current Medications Acetaminophen (Acetaminophen 325 Mg Tablet) 650 mg PO Q6H PRN PRN Reason: Headache/Pain, Scale 1-10 Al Hydroxide/Mg Hydroxide (Magnesium Hydrox/Alum Hydrox 30 Ml Oral.Susp) 30 ml PO Q6H PRN PRN Reason: Heartburn/Nausea Amlodipine Besylate (Amlodipine Besylate 5 Mg Tablet) 5 mg PO DAILY [facility]; Protocol Last Admin: 12/11/24 08:57 Dose: 5 mg Aspirin (Aspirin Enteric Coated 81 Mg Tablet.Dr) 81 mg PO DAILY [facility] Last Admin: 12/11/24 08:57 Dose: 81 mg Atorvastatin Calcium (Atorvastatin Calcium 10 Mg Tablet) 10 mg PO BEDTIME [facility] Last Admin: 12/10/24 21:44 Dose: 10 mg Brexpiprazole (Brexpiprazole 1 Mg Tablet) 1 mg PO DAILY [facility] Last Admin: 12/11/24 09:01 Dose: 1 mg Docusate Sodium (Docusate Sodium 100 Mg Capsule) 100 mg PO BEDTIME [facility] Last Admin: 12/10/24 21:44 Dose: 100 mg Lorazepam (Lorazepam 0.5 Mg Tablet) 0.5 mg PO Q4H PRN PRN Reason: Anxiety Last Admin: 12/03/24 15:26 Dose: 0.5 mg Magnesium Hydroxide (Milk Of Magnesia 30 Ml Oral.Susp) 30 ml PO DAILY PRN PRN Reason: Constipation Naloxone HCl (Naloxone Hcl 0.4 Mg/Ml Vial) 0.04 mg IVPUSH Q5M PRN PRN Reason: Excessive sedation or RR < 8 Olanzapine (Olanzapine 7.5 Mg Tablet) 7.5 mg PO BEDTIME [facility] Last Admin: 12/10/24 21:44 Dose: 7.5 mg Senna (Sennosides 8.6 Mg Tablet) 8.6 mg PO BEDTIME [facility] Last Admin: 12/10/24 21:43 Dose: 8.6 mg Trazodone HCl (Trazodone Hcl 50 Mg Tablet) 50 mg PO BEDTIME MRX1 PRN PRN Reason: Insomnia Last Admin: 12/10/24 21:44 Dose: 50 mg Vortioxetine (Vortioxetine Hydrobromide 10 Mg Tablet) 10 mg PO DAILY [facility] Last Admin: 12/11/24 08:57 Dose: 10 mg Allergies Allergies Allergy/AdvReac Type Severity Reaction Status Date / Time No Known Allergies Allergy Verified 11/20/24 06:27 [No Known Allergies*] Assessment & Plan Assessment & Plan (1) HLD (hyperlipidemia): Status: Acute Code(s): E78.5 - Hyperlipidemia, unspecified Plan Patient is an 83-year-old female with a PMH significant for MDD, OCD, and history of left ankle fracture with ORIF who was admitted to [facility] with increased depression, decreased appetite, and medication noncompliance. 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 OP f/u with Dr. Hensley. Hypertension/Prediabetes/HLD Blood pressures have been stable Continue on amlodipine daily Patient taking a daily aspirin Labs reviewed 11/10/2024, no anemia, renal function stable Hemoglobin A1c 5.5. Encouraged activity Noted to have elevated cholesterol, total cholesterol 265, LDL 154, HDL 98 Will start low-dose atorvastatin 10 mg daily 11/2024 Patient clearly less depressed but remains suspicious of others with paranoid concerns idiosyncratic behavior caring certain wound and clothing 12/06/24 monitor response to ect consider change to cloz if remains psychitic 12/07/2024 cont ect some improvement noted still with pschosis hcp has been invoked 12/08/24 Patient less depressed but remains psychotic seems be responding either to ECT or Rexulti. Continues on Trintellix remains psychotic continue ECT 12/09: continue current management and treatment plan. 12/10: continue current management and treatment plan. 12/11: continue current management and treatment plan. Reason for continued inpatient stay Substantial Risk for: inability to function and rapid decompensation Time Spent With Patient Time: Total time managing care of this patient today ____ minutes.
[2024-12-11] MEDS: Atorvastatin Calcium 10 MG TABLET PO (19:56)
[2024-12-11] MEDS: traZODone HCL 50 MG TABLET PO (19:56)
[2024-12-11] MEDS: Sennosides 8.6 MG TABLET PO (19:56)
[2024-12-11] MEDS: Docusate Sodium 100 MG CAPSULE PO (19:56)
[2024-12-11] MEDS: OLANZapine 7.5 MG TABLET PO (19:56)
[2024-12-11 19:59] VITALS: BP 129/67; PULSE 75; RESP 16; TEMP 36.9; O2SAT 97
[2024-12-12 08:00] VITALS: BP 126/57; PULSE 77; RESP 16; TEMP 36.3; O2SAT 96
[2024-12-12] MEDS: Aspirin Enteric Coated 81 MG TABLET.DR PO (08:57)
[2024-12-12 08:58] VITALS: BP 126/57
[2024-12-12] MEDS: amLODIPine Besylate 5 MG TABLET PO (08:58)
[2024-12-12] MEDS: Brexpiprazole 1 MG TABLET PO (08:58)
[2024-12-12] MEDS: Vortioxetine Hydrobromide 10 MG TABLET PO (08:58)
--- NOTE | 2024-12-12 12:59 | P.PNPSI_ITS ---
Subjective Subjective Date of Service: 12/12/24 Reason For Visit: severe depression psychosis si Subjective Notes: Conditional Voluntary Healthcare Proxy: Yes Medication Compliance: Yes Mental Status Exam Mental Status Exam Narrative: Mental Status Exam Narrative: Appearance: Casually dressed Behavior: Superficially cooperative psychomotor: Some retardation Speech: Slowed Thought proccess linear delay noted Thought content: Focused on feeling like she is ready to leave the hospital guarded has psychotic concerns regarding staff being actors People conspiring against her Mood: Affect: Flat SI:denies HI:denies VH/AH:none paranoid delusions related conspiracy against her Delusions: Insight/judgment: Impaired insight Memory/cog: Impaired memory Diagnostics Vital Signs (24Hr): Vital Signs - 24 hr 12/11/24 19:59 12/12/24 08:00 12/12/24 08:58 Temperature 98.4 F 97.3 F Pulse Rate 75 77 Respiratory Rate 16 16 Blood Pressure 129/67 126/57 L 126/57 L Pulse Oximetry 97 96 Oxygen Delivery Method Room Air Room Air BMI result Body Mass Index 21.9 Labs 11/10/24 07:56 11/10/24 07:56 Medications Medications Current Medications Acetaminophen (Acetaminophen 325 Mg Tablet) 650 mg PO Q6H PRN PRN Reason: Headache/Pain, Scale 1-10 Al Hydroxide/Mg Hydroxide (Magnesium Hydrox/Alum Hydrox 30 Ml Oral.Susp) 30 ml PO Q6H PRN PRN Reason: Heartburn/Nausea Amlodipine Besylate (Amlodipine Besylate 5 Mg Tablet) 5 mg PO DAILY [facility]; Protocol Last Admin: 12/12/24 08:58 Dose: 5 mg Aspirin (Aspirin Enteric Coated 81 Mg Tablet.) 81 mg PO DAILY [facility] Last Admin: 12/12/24 08:57 Dose: 81 mg Atorvastatin Calcium (Atorvastatin Calcium 10 Mg Tablet) 10 mg PO BEDTIME [facility] Last Admin: 12/11/24 19:56 Dose: 10 mg Brexpiprazole (Brexpiprazole 1 Mg Tablet) 1 mg PO DAILY [facility] Last Admin: 12/12/24 08:58 Dose: 1 mg Docusate Sodium (Docusate Sodium 100 Mg Capsule) 100 mg PO BEDTIME [facility] Last Admin: 12/11/24 19:56 Dose: 100 mg Lorazepam (Lorazepam 0.5 Mg Tablet) 0.5 mg PO Q4H PRN PRN Reason: Anxiety Last Admin: 12/03/24 15:26 Dose: 0.5 mg Magnesium Hydroxide (Milk Of Magnesia 30 Ml Oral.Susp) 30 ml PO DAILY PRN PRN Reason: Constipation Naloxone HCl (Naloxone Hcl 0.4 Mg/Ml Vial) 0.04 mg IVPUSH Q5M PRN PRN Reason: Excessive sedation or RR < 8 Olanzapine (Olanzapine 7.5 Mg Tablet) 7.5 mg PO BEDTIME [facility] Last Admin: 12/11/24 19:56 Dose: 7.5 mg Senna (Sennosides 8.6 Mg Tablet) 8.6 mg PO BEDTIME [facility] Last Admin: 12/11/24 19:56 Dose: 8.6 mg Trazodone HCl (Trazodone Hcl 50 Mg Tablet) 50 mg PO BEDTIME MRX1 PRN PRN Reason: Insomnia Last Admin: 12/11/24 19:56 Dose: 50 mg Vortioxetine (Vortioxetine Hydrobromide 10 Mg Tablet) 10 mg PO DAILY [facility] Last Admin: 12/12/24 08:58 Dose: 10 mg Allergies Allergies Allergy/AdvReac Type Severity Reaction Status Date / Time No Known Allergies Allergy Verified 11/20/24 06:27 [No Known Allergies*] Assessment & Plan Assessment & Plan (1) HLD (hyperlipidemia): Status: Acute Code(s): E78.5 - Hyperlipidemia, unspecified (2) Major depressive disorder, recurrent, severe with psychotic features: Status: Acute Code(s): F33.3 - Major depressive disorder, recurrent, severe with psychotic symptoms Plan Patient is an 83-year-old female with a PMH significant for MDD, OCD, and history of left ankle fracture with ORIF who was admitted to [facility] with increased depression, decreased appetite, and medication noncompliance. 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 OP f/u with Dr. Hensley. Hypertension/Prediabetes/HLD Blood pressures have been stable Continue on amlodipine daily Patient taking a daily aspirin Labs reviewed 11/10/2024, no anemia, renal function stable Hemoglobin A1c 5.5. Encouraged activity Noted to have elevated cholesterol, total cholesterol 265, LDL 154, HDL 98 Will start low-dose atorvastatin 10 mg daily 11/2024 Patient clearly less depressed but remains suspicious of others with paranoid concerns idiosyncratic behavior caring certain wound and clothing 12/06/24 monitor response to ect consider change to cloz if remains psychitic 12/07/2024 cont ect some improvement noted still with pschosis hcp has been invoked 12/08/24 Patient less depressed but remains psychotic seems be responding either to ECT or Rexulti. Continues on Trintellix remains psychotic continue ECT 12/09: continue current management and treatment plan. 12/10: continue current management and treatment plan. 12/11: continue current management and treatment plan. 12/12/2024 Increase olanzapine to 10 mg bedtime continue ECT is psychosis not improved consider clozapine Reason for continued inpatient stay Substantial Risk for: inability to function, rapid decompensation and med/psych decompensation Time Spent With Patient Time: Total time managing care of this patient today ____ minutes.
[2024-12-12] MEDS: Memantine HCl 5 MG TABLET PO (13:21)
[2024-12-12 20:00] VITALS: BP 132/62; PULSE 85; RESP 16; TEMP 36.8; O2SAT 95
[2024-12-12] MEDS: Docusate Sodium 100 MG CAPSULE PO (21:08)
[2024-12-12] MEDS: Atorvastatin Calcium 10 MG TABLET PO (21:08)
[2024-12-12] MEDS: OLANZapine 10 MG TABLET PO (21:08)
[2024-12-12] MEDS: traZODone HCL 50 MG TABLET PO (21:08)
[2024-12-12] MEDS: Sennosides 8.6 MG TABLET PO (21:08)
[2024-12-13] VITALS (13 sets, daily range): BP systolic 95–141; BP diastolic 47–68; PULSE 66–86; RESP 12–16; TEMP 36.4–36.6; O2SAT 94–99; BMI 22.5
--- NOTE | 2024-12-13 07:00 | MHC.SHP ---
Pre-Procedural Eval Section A - 24 Hr Update-Section A only Date of Service: 12/13/24 The patient is an INPATIENT: Yes Changes since office visit: Yes Changes in Medication and Yes Patient answered all questions; No Cold of Flu in the past 2 weeks and No New Medical Problems The patient has been examined within 24 hours of the surgical procedure. The History & Physical has been completed within 30 days and I have reviewed it.: Yes Section B - Complete if H&P > 30 days Chief Complaint: severe depression psychosis si Allergies: Allergies Allergy/AdvReac Type Severity Reaction Status Date / Time No Known Allergies Allergy Verified 11/20/24 06:27 [No Known Allergies*] Plan I have reviewed the history and physical and performed a pertinent physical examination on my patient. No changes have occurred unless specified. Time Spent With Patient Time: Total time managing care of this patient today ____ minutes.
--- NOTE | 2024-12-13 07:49 | HO.ANESPROP2 ---
[facility] Active Problems Active Problems: All Active Problems HLD (hyperlipidemia) (Acute) Pre-op evaluation (Acute) Parkinsonism (Acute) Dementia, vascular (Acute) Major depressive disorder, recurrent, severe with psychotic features (Acute) Depression (Acute) Abnormal finding on EKG (Acute) Major depressive disorder, recurrent severe without psychotic features (Acute) OCD (obsessive compulsive disorder) (Acute) Past Medical History Medical History History of fracture of left ankle OCD (obsessive compulsive disorder) Major depressive disorder, recurrent severe without psychotic features S/P ECT (electroconvulsive therapy) Functional capacity: independent ambulation Family History Family History Mother CHF (congestive heart failure) Family history of problems with anesthesia: No Surgical History Surgical History No history of previous surgery History of Problems with Anesthesia: No Social History Social History Household Members: None Housing: Apartment Housing Other:: Care Home community Do you presently have visiting nurse or other home services: Yes ([employer] [facility]) Patient Tobacco Use Status: Never used Tobacco e-Cigarette/Vaping Use: Never Used service: No Sexual orientation: Straight/Heterosexual Meds Allergies Allergy/AdvReac Type Severity Reaction Status Date / Time No Known Allergies Allergy Verified 11/20/24 06:27 [No Known Allergies*] Active Medications: Current Medications Acetaminophen (Acetaminophen 325 Mg Tablet) 650 mg PO Q6H PRN PRN Reason: Headache/Pain, Scale 1-10 Al Hydroxide/Mg Hydroxide (Magnesium Hydrox/Alum Hydrox 30 Ml Oral.Susp) 30 ml PO Q6H PRN PRN Reason: Heartburn/Nausea Amlodipine Besylate (Amlodipine Besylate 5 Mg Tablet) 5 mg PO DAILY [facility]; Protocol Last Admin: 12/12/24 08:58 Dose: 5 mg Aspirin (Aspirin Enteric Coated 81 Mg Tablet.Dr) 81 mg PO DAILY [facility] Last Admin: 12/12/24 08:57 Dose: 81 mg Atorvastatin Calcium (Atorvastatin Calcium 10 Mg Tablet) 10 mg PO BEDTIME [facility] Last Admin: 12/12/24 21:08 Dose: 10 mg Brexpiprazole (Brexpiprazole 1 Mg Tablet) 1 mg PO DAILY [facility] Last Admin: 12/12/24 08:58 Dose: 1 mg Docusate Sodium (Docusate Sodium 100 Mg Capsule) 100 mg PO BEDTIME [facility] Last Admin: 12/12/24 21:08 Dose: 100 mg Lorazepam (Lorazepam 0.5 Mg Tablet) 0.5 mg PO Q4H PRN PRN Reason: Anxiety Last Admin: 12/03/24 15:26 Dose: 0.5 mg Magnesium Hydroxide (Milk Of Magnesia 30 Ml Oral.Susp) 30 ml PO DAILY PRN PRN Reason: Constipation Memantine (Memantine Hcl 5 Mg Tablet) 5 mg PO DAILY [facility] Last Admin: 12/12/24 13:21 Dose: 5 mg Naloxone HCl (Naloxone Hcl 0.4 Mg/Ml Vial) 0.04 mg IVPUSH Q5M PRN PRN Reason: Excessive sedation or RR < 8 Olanzapine (Olanzapine 10 Mg Tablet) 10 mg PO BEDTIME [facility] Last Admin: 12/12/24 21:08 Dose: 10 mg Senna (Sennosides 8.6 Mg Tablet) 8.6 mg PO BEDTIME [facility] Last Admin: 12/12/24 21:08 Dose: 8.6 mg Trazodone HCl (Trazodone Hcl 50 Mg Tablet) 50 mg PO BEDTIME MRX1 PRN PRN Reason: Insomnia Last Admin: 12/12/24 21:08 Dose: 50 mg Vortioxetine (Vortioxetine Hydrobromide 10 Mg Tablet) 10 mg PO DAILY [facility] Last Admin: 12/12/24 08:58 Dose: 10 mg Home Medications ?Medication ?Instructions ?Recorded ?Confirmed ?Last Taken ?Type acetaminophen 500 mg tablet 500 mg PO TID PRN pain 11/09/24 11/09/24 Unknown History (Acetaminophen Extra Strength) docusate sodium 100 mg capsule 100 mg PO BEDTIME constipation 11/09/24 11/09/24 11/07/24 20:00 History (Colace) memantine 7 mg capsule 7 mg PO DAILY 11/09/24 11/09/24 11/08/24 08:00 History sprinkle,extended release 24hr sennosides 8.6 mg tablet (senna) 8.6 mg PO BEDTIME 11/09/24 11/09/24 11/07/24 20:00 History trazodone 50 mg tablet 50 mg PO BEDTIME 11/09/24 11/09/24 Unknown History Exam Height,Weight and Vital Signs: Height 5 ft 3 in Weight 56.155 kg Last Vital Signs Temp 98 F 12/13/24 06:47 Pulse 82 12/13/24 06:47 Resp 12 12/13/24 06:47 BP 140/65 H 12/13/24 06:47 Pulse Ox 97 12/13/24 06:47 O2 Del Method Room Air 12/13/24 06:47 O2 Flow Rate 2 12/08/24 07:47 Pertinent Lab Results Pertinent Lab Results: Laboratory Tests 11/08/24 11/08/24 11/10/24 19:58 21:01 07:56 WBC 9.6 8.9 RBC 4.65 5.14 Hgb 14.2 15.9 Hct 41.4 44.8 MCV 89.0 87.2 MCH 30.5 30.9 MCHC 34.3 35.5 H RDW 13.6 13.2 Plt Count 229 240 MPV 10.1 10.7 Immature Gran % (Auto) 0.2 0.3 Neut % (Auto) 64.3 63.1 Lymph % (Auto) 25.6 27.7 [place] % (Auto) 8.8 8.0 Eos % (Auto) 0.6 0.6 Baso % (Auto) 0.5 0.3 Lymph # (Auto) 2.5 2.5 [place] # (Auto) 0.9 0.7 Eos # (Auto) 0.1 0.1 Baso # (Auto) 0.1 0.0 Abs Immat Gran (auto) 0.02 0.03 Absolute Neuts (auto) 6.2 5.6 Absolute Nucleated RBC 0.000 0.000 Nucleated RBC % (auto) 0.0 0.0 Sodium 135 135 Potassium 4.4 4.0 Chloride 99 101 Carbon Dioxide 27 25 Anion Gap 13 13 BUN 19 H 16 Creatinine 0.92 0.78 Estim Creat Clear Calc 38.9 46.0 Estimated GFR 58 > 60 Random Glucose 122 H 87 Estimat Average Glucose 111 Hemoglobin A1c % 5.5 Calcium 9.4 9.3 Magnesium 2.1 Total Bilirubin 0.4 0.8 Direct Bilirubin 0.1 AST 24 25 ALT 26 16 Alkaline Phosphatase 82 69 Total Protein 6.6 6.4 L Albumin 4.3 4.2 Triglycerides 64 Cholesterol 264 H LDL Cholesterol, Calc 154 H HDL Cholesterol 98 Vitamin B12 567 Folate 9.3 TSH 2.75 Urine Color Yellow Urine Appearance Clear Urine pH 5.5 Ur Specific [place] 1.020 Urine Protein Negative Urine Glucose (UA) Negative Urine Ketones Trace Urine Blood Negative Urine Nitrite Negative Ur Leukocyte Esterase Moderate (2+) H Urine RBC 0-2 Urine WBC 21-50 H Ur Squamous Epith Cells 3-5 Urine Bacteria None Seen Hyaline Casts 0-2 Urine Opiates Screen Not Detected Ur Buprenorphine Scrn Not Detected Ur Oxycodone Screen Not Detected Urine Methadone Screen Not Detected Urine Fentanyl Screen Not Detected Ur Barbiturates Screen Not Detected Ur Phencyclidine Scrn Not Detected Ur Amphetamines Screen Not Detected U Benzodiazepines Scrn Not Detected Urine Cocaine Screen Not Detected U Marijuana (THC) Screen Not Detected Ethyl Alcohol < 10 11/21/24 12:30 WBC RBC Hgb Hct MCV MCH MCHC RDW Plt Count MPV Immature Gran % (Auto) Neut % (Auto) Lymph % (Auto) [place] % (Auto) Eos % (Auto) Baso % (Auto) Lymph # (Auto) [place] # (Auto) Eos # (Auto) Baso # (Auto) Abs Immat Gran (auto) Absolute Neuts (auto) Absolute Nucleated RBC Nucleated RBC % (auto) Sodium Potassium Chloride Carbon Dioxide Anion Gap BUN Creatinine Estim Creat Clear Calc Estimated GFR Random Glucose Estimat Average Glucose Hemoglobin A1c % Calcium Magnesium Total Bilirubin Direct Bilirubin AST ALT Alkaline Phosphatase Total Protein Albumin Triglycerides Cholesterol LDL Cholesterol, Calc HDL Cholesterol Vitamin B12 Folate TSH Urine Color Yellow Urine Appearance Clear Urine pH 5.5 Ur Specific [place] 1.015 Urine Protein Negative Urine Glucose (UA) Negative Urine Ketones Trace Urine Blood Negative Urine Nitrite Negative Ur Leukocyte Esterase Trace H Urine RBC 0-2 Urine WBC 0-5 Ur Squamous Epith Cells 0-2 Urine Bacteria None Seen Hyaline Casts 0-2 Urine Opiates Screen Ur Buprenorphine Scrn Ur Oxycodone Screen Urine Methadone Screen Urine Fentanyl Screen Ur Barbiturates Screen Ur Phencyclidine Scrn Ur Amphetamines Screen U Benzodiazepines Scrn Urine Cocaine Screen U Marijuana (THC) Screen Ethyl Alcohol Airway Mallampati Class: II TM Dist: >3cm Neck ROM: Full Heart: rrr Lungs: cta Assessment and Plan Assessment Anesthesia Assessment: Anesthesia Plan Discussed and Chart Reviewed Final Anesthetic Review Family History of Problems with Anesthesia: No History of Problems with Anesthesia: No NPO: Yes ASA Class: III Final Preanesthetic Review: No Changes in Pt Med Stat, Meds/Allgs Chart Reviewed and Consent Obtained/Reviewed Patient Risk: Intermediate Procedure Risk: Intermediate Anesthetic Plan Anesthetic Plan: GA Disposition: Standard PACU
--- NOTE | 2024-12-13 07:53 | HO.ECTPROC ---
ECT Procedure Note Diagnosis/Treatment Date of Service: 12/14/24 Diagnosis: Major Depressive Disorder Previous ECT Date: 12/08/24 Current Treatment Number: 9 Treatment: Series Interval Clinical Notes: Pt with better grooming less depressed has anxious paranoid concerns Time: Total time managing care of this patient today ____ minutes. ECT Settings Device: THYMATRON DGx Electrode Placement: Right Unilateral Program/Pulse Width: 0.50 Energy Percent: 100 Seizure Duration By EEG (in seconds): 56 Medications Administration General Anesthetic: Etomidate (14) Muscle Relaxant: Succinylcholine (80) Ancillary Medications Miscillaneous Medications: Propofol (20) Airway Management Airway Management: Bag Mask Ventilation Treatment Recommendations No Changes Recommended: No change Notes: h Pt Tolerated Procedure w/o Issue: Yes
[2024-12-13] MEDS: Memantine HCl 5 MG TABLET PO (10:15)
[2024-12-13] MEDS: amLODIPine Besylate 5 MG TABLET PO (10:15)
[2024-12-13] MEDS: Aspirin Enteric Coated 81 MG TABLET.DR PO (10:15)
[2024-12-13] MEDS: Vortioxetine Hydrobromide 10 MG TABLET PO (10:16)
[2024-12-13] MEDS: Brexpiprazole 1 MG TABLET PO (10:18)
--- NOTE | 2024-12-13 10:25 | PC.NURSE ---
Patient back to the unit from ECT at 9:40 AM. Reports being little dizzy . Denies nausea, denies headache or any pain. BP 126/60, P 72, T 97.5, O2sat 97% on RA. In a milieu having late breakfast. Will continue to monitor.
[2024-12-13] MEDS: Sennosides 8.6 MG TABLET PO (20:20)
[2024-12-13] MEDS: Atorvastatin Calcium 10 MG TABLET PO (20:20)
[2024-12-13] MEDS: OLANZapine 10 MG TABLET PO (20:20)
[2024-12-13] MEDS: Docusate Sodium 100 MG CAPSULE PO (20:20)
--- NOTE | 2024-12-13 21:36 | HO.PSYCHPN ---
Subjective Subjective Date of Service: 12/13/24 Reason For Visit: severe depression psychosis si Subjective Notes: Conditional Voluntary Healthcare Proxy: Yes Interim History: Patient seen psychiatric follow-up. Patient anxious dysphoric confused at times with psychotic preoccupation. ECT completed without difficulty Mental Status Exam Mental Status Exam Narrative: Mental Status Exam Narrative: Appearance: Casually dressed Behavior: Superficially cooperative psychomotor: Some retardation Speech: Slowed Thought proccess linear delay noted Thought content: Focused on feeling like she is ready to leave the hospital guarded has psychotic concerns regarding staff being actors People conspiring against her Mood: Anxious Affect: Flat SI:denies HI:denies VH/AH:none paranoid delusions related conspiracy against her have decreased Delusions: Insight/judgment: Impaired insight Memory/cog: Impaired memory Diagnostics Vital Signs (24Hr): Vital Signs - 24 hr 12/13/24 06:47 12/13/24 08:12 12/13/24 08:15 Temperature 98 F 97.5 F Pulse Rate 82 79 66 Respiratory Rate 12 16 16 Blood Pressure 140/65 H 110/47 L 95/56 L Pulse Oximetry 97 99 99 Oxygen Delivery Method Room Air Nasal Cannula Nasal Cannula Oxygen Flow Rate 2 12/13/24 08:20 12/13/24 08:25 12/13/24 08:40 Temperature Pulse Rate 75 74 76 Respiratory Rate 16 16 16 Blood Pressure 118/59 L 124/60 135/57 L Pulse Oximetry 99 99 99 Oxygen Delivery Method Nasal Cannula Nasal Cannula Nasal Cannula Oxygen Flow Rate 2 2 2 12/13/24 08:55 12/13/24 09:00 12/13/24 09:15 Temperature Pulse Rate 80 78 76 Respiratory Rate 16 16 16 Blood Pressure 135/64 135/62 141/65 H Pulse Oximetry 99 99 99 Oxygen Delivery Method Nasal Cannula Nasal Cannula Nasal Cannula Oxygen Flow Rate 2 2 2 12/13/24 09:26 12/13/24 09:45 12/13/24 09:45 Temperature 98 F 97.5 F 97.5 F Pulse Rate 82 72 72 Respiratory Rate 16 16 16 Blood Pressure 131/68 126/60 126/60 Pulse Oximetry 99 97 97 Oxygen Delivery Method Room Air Room Air Oxygen Flow Rate 12/13/24 10:15 12/13/24 20:00 Temperature 97.5 F Pulse Rate 86 Respiratory Rate Blood Pressure 126/60 133/63 Pulse Oximetry 94 Oxygen Delivery Method Room Air Oxygen Flow Rate BMI result Body Mass Index 22.5 Labs 11/10/24 07:56 11/10/24 07:56 Medications Medications Current Medications Acetaminophen (Acetaminophen 325 Mg Tablet) 650 mg PO Q6H PRN PRN Reason: Headache/Pain, Scale 1-10 Al Hydroxide/Mg Hydroxide (Magnesium Hydrox/Alum Hydrox 30 Ml Oral.Susp) 30 ml PO Q6H PRN PRN Reason: Heartburn/Nausea Amlodipine Besylate (Amlodipine Besylate 5 Mg Tablet) 5 mg PO DAILY [facility]; Protocol Last Admin: 12/13/24 10:15 Dose: 5 mg Aspirin (Aspirin Enteric Coated 81 Mg Tablet.Dr) 81 mg PO DAILY [facility] Last Admin: 12/13/24 10:15 Dose: 81 mg Atorvastatin Calcium (Atorvastatin Calcium 10 Mg Tablet) 10 mg PO BEDTIME [facility] Last Admin: 12/13/24 20:20 Dose: 10 mg Brexpiprazole (Brexpiprazole 1 Mg Tablet) 1 mg PO DAILY [facility] Last Admin: 12/13/24 10:18 Dose: 1 mg Docusate Sodium (Docusate Sodium 100 Mg Capsule) 100 mg PO BEDTIME [facility] Last Admin: 12/13/24 20:20 Dose: 100 mg Lactated Ringer's (Lr) 1,000 mls @ 50 mls/hr IVCONT .Q20H [facility] Lorazepam (Lorazepam 0.5 Mg Tablet) 0.5 mg PO Q4H PRN PRN Reason: Anxiety Last Admin: 12/03/24 15:26 Dose: 0.5 mg Magnesium Hydroxide (Milk Of Magnesia 30 Ml Oral.Susp) 30 ml PO DAILY PRN PRN Reason: Constipation Memantine (Memantine Hcl 5 Mg Tablet) 5 mg PO DAILY [facility] Last Admin: 12/13/24 10:15 Dose: 5 mg Naloxone HCl (Naloxone Hcl 0.4 Mg/Ml Vial) 0.04 mg IVPUSH Q5M PRN PRN Reason: Excessive sedation or RR < 8 Olanzapine (Olanzapine 10 Mg Tablet) 10 mg PO BEDTIME [facility] Last Admin: 12/13/24 20:20 Dose: 10 mg Senna (Sennosides 8.6 Mg Tablet) 8.6 mg PO BEDTIME [facility] Last Admin: 12/13/24 20:20 Dose: 8.6 mg Trazodone HCl (Trazodone Hcl 50 Mg Tablet) 50 mg PO BEDTIME MRX1 PRN PRN Reason: Insomnia Last Admin: 12/12/24 21:08 Dose: 50 mg Vortioxetine (Vortioxetine Hydrobromide 10 Mg Tablet) 10 mg PO DAILY [facility] Last Admin: 12/13/24 10:16 Dose: 10 mg Allergies Allergies Allergy/AdvReac Type Severity Reaction Status Date / Time No Known Allergies Allergy Verified 11/20/24 06:27 [No Known Allergies*] Assessment & Plan Assessment & Plan (1) HLD (hyperlipidemia): Status: Acute Code(s): E78.5 - Hyperlipidemia, unspecified (2) Major depressive disorder, recurrent, severe with psychotic features: Status: Acute Code(s): F33.3 - Major depressive disorder, recurrent, severe with psychotic symptoms Plan Patient is an 83-year-old female with a PMH significant for MDD, OCD, and history of left ankle fracture with ORIF who was admitted to [facility] with increased depression, decreased appetite, and medication noncompliance. 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 OP f/u with Dr. Hensley. Hypertension/Prediabetes/HLD Blood pressures have been stable Continue on amlodipine daily Patient taking a daily aspirin Labs reviewed 11/10/2024, no anemia, renal function stable Hemoglobin A1c 5.5. Encouraged activity Noted to have elevated cholesterol, total cholesterol 265, LDL 154, HDL 98 Will start low-dose atorvastatin 10 mg daily 11/2024 Patient clearly less depressed but remains suspicious of others with paranoid concerns idiosyncratic behavior caring certain wound and clothing 12/06/24 monitor response to ect consider change to cloz if remains psychitic 12/07/2024 cont ect some improvement noted still with pschosis hcp has been invoked 12/08/24 Patient less depressed but remains psychotic seems be responding either to ECT or Rexulti. Continues on Trintellix remains psychotic continue ECT 12/09: continue current management and treatment plan. 12/10: continue current management and treatment plan. 12/11: continue current management and treatment plan. 12/12/2024 Increase olanzapine to 10 mg bedtime continue ECT is psychosis not improved consider clozapine 12/13/2024 Monitor response to ECT and increase olanzapine consider clozapine patient fearful of losing her Reason for continued inpatient stay Substantial Risk for: inability to function, rapid decompensation and med/psych decompensation Time Spent With Patient Time: Total time managing care of this patient today ____ minutes.
[2024-12-14 08:21] VITALS: BP 122/56; PULSE 78; RESP 15; TEMP 36.6; O2SAT 97
[2024-12-14] MEDS: Aspirin Enteric Coated 81 MG TABLET.DR PO (08:23)
[2024-12-14] MEDS: amLODIPine Besylate 5 MG TABLET PO (08:23)
[2024-12-14] MEDS: Vortioxetine Hydrobromide 10 MG TABLET PO (08:23)
[2024-12-14] MEDS: Memantine HCl 5 MG TABLET PO (08:23)
[2024-12-14] MEDS: Brexpiprazole 1 MG TABLET PO (08:23)
[2024-12-14 13:51] VITALS: BMI 22.5
[2024-12-14 20:00] VITALS: BP 129/76; PULSE 68; RESP 16; TEMP 36; O2SAT 97
[2024-12-14] MEDS: OLANZapine 10 MG TABLET PO (20:46)
[2024-12-14] MEDS: Docusate Sodium 100 MG CAPSULE PO (20:46)
[2024-12-14] MEDS: Atorvastatin Calcium 10 MG TABLET PO (20:46)
[2024-12-14] MEDS: Sennosides 8.6 MG TABLET PO (20:46)
--- NOTE | 2024-12-14 23:39 | P.PNPSI_ITS ---
Subjective Subjective Date of Service: 12/14/24 Reason For Visit: severe depression psychosis si Subjective Notes: Conditional Voluntary Interim History: Patient withdrawn slowed mentation dysphoria improved. Case reviewed with daughter and son healthcare proxy. Patient continues [place] some degree of paranoid concerns but less intensity cognition is impaired poor memory and difficulty with executive functioning Mental Status Exam Mental Status Exam Narrative: Mental Status Exam Narrative: Appearance: Casually dressed Behavior: Superficially cooperative psychomotor: Some retardation Speech: Slowed Thought proccess linear delay noted Thought content: Focused on feeling like she is ready to leave the hospital but feels off she states People conspiring against her Mood: Anxious Affect: Flat SI:denies HI:denies VH/AH:none paranoid delusions related conspiracy against her have decreased Delusions: Insight/judgment: Impaired insight Memory/cog: Impaired memory Diagnostics Vital Signs (24Hr): Vital Signs - 24 hr 12/14/24 08:21 12/14/24 20:00 Temperature 97.9 F 96.8 F Pulse Rate 78 68 Respiratory Rate 15 16 Blood Pressure 122/56 L 129/76 Pulse Oximetry 97 97 Oxygen Delivery Method Room Air Room Air BMI result Body Mass Index 22.5 Labs 12/20/24 12:00 12/20/24 12:00 Medications Medications Current Medications Acetaminophen (Acetaminophen 325 Mg Tablet) 650 mg PO Q6H PRN PRN Reason: Headache/Pain, Scale 1-10 Al Hydroxide/Mg Hydroxide (Magnesium Hydrox/Alum Hydrox 30 Ml Oral.Susp) 30 ml PO Q6H PRN PRN Reason: Heartburn/Nausea Amlodipine Besylate (Amlodipine Besylate 5 Mg Tablet) 5 mg PO DAILY [facility]; Protocol Last Admin: 12/14/24 08:23 Dose: 5 mg Aspirin (Aspirin Enteric Coated 81 Mg Tablet.Dr) 81 mg PO DAILY [facility] Last Admin: 12/14/24 08:23 Dose: 81 mg Atorvastatin Calcium (Atorvastatin Calcium 10 Mg Tablet) 10 mg PO BEDTIME [facility] Last Admin: 12/14/24 20:46 Dose: 10 mg Brexpiprazole (Brexpiprazole 1 Mg Tablet) 1 mg PO DAILY [facility] Last Admin: 12/14/24 08:23 Dose: 1 mg Docusate Sodium (Docusate Sodium 100 Mg Capsule) 100 mg PO BEDTIME [facility] Last Admin: 12/14/24 20:46 Dose: 100 mg Lactated Ringer's (Lr) 1,000 mls @ 50 mls/hr IVCONT .Q20H DENISSE Lorazepam (Lorazepam 0.5 Mg Tablet) 0.5 mg PO Q4H PRN PRN Reason: Anxiety Last Admin: 12/03/24 15:26 Dose: 0.5 mg Magnesium Hydroxide (Milk Of Magnesia 30 Ml Oral.Susp) 30 ml PO DAILY PRN PRN Reason: Constipation Memantine (Memantine Hcl 5 Mg Tablet) 5 mg PO DAILY [facility] Last Admin: 12/14/24 08:23 Dose: 5 mg Naloxone HCl (Naloxone Hcl 0.4 Mg/Ml Vial) 0.04 mg IVPUSH Q5M PRN PRN Reason: Excessive sedation or RR < 8 Olanzapine (Olanzapine 10 Mg Tablet) 10 mg PO BEDTIME DENISSE Last Admin: 12/14/24 20:46 Dose: 10 mg Senna (Sennosides 8.6 Mg Tablet) 8.6 mg PO BEDTIME DENISSE Last Admin: 12/14/24 20:46 Dose: 8.6 mg Trazodone HCl (Trazodone Hcl 50 Mg Tablet) 50 mg PO BEDTIME MRX1 PRN PRN Reason: Insomnia Last Admin: 12/12/24 21:08 Dose: 50 mg Vortioxetine (Vortioxetine Hydrobromide 10 Mg Tablet) 10 mg PO DAILY [facility] Last Admin: 12/14/24 08:23 Dose: 10 mg Allergies Allergies Allergy/AdvReac Type Severity Reaction Status Date / Time No Known Allergies Allergy Verified 11/20/24 06:27 [No Known Allergies*] Assessment & Plan Assessment & Plan (1) Major depressive disorder, recurrent, severe with psychotic features: Status: Acute Code(s): F33.3 - Major depressive disorder, recurrent, severe with psychotic symptoms (2) HLD (hyperlipidemia): Status: Acute Code(s): E78.5 - Hyperlipidemia, unspecified Plan Patient is an 83-year-old female with a PMH significant for MDD, OCD, and history of left ankle fracture with ORIF who was admitted to [facility] with increased depression, decreased appetite, and medication noncompliance. 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 OP f/u with Dr. Hensley. Hypertension/Prediabetes/HLD Blood pressures have been stable Continue on amlodipine daily Patient taking a daily aspirin Labs reviewed 11/10/2024, no anemia, renal function stable Hemoglobin A1c 5.5. Encouraged activity Noted to have elevated cholesterol, total cholesterol 265, LDL 154, HDL 98 Will start low-dose atorvastatin 10 mg daily 11/2024 Patient clearly less depressed but remains suspicious of others with paranoid concerns idiosyncratic behavior caring certain wound and clothing 12/06/24 monitor response to ect consider change to cloz if remains psychitic 12/07/2024 cont ect some improvement noted still with pschosis hcp has been invoked 12/08/24 Patient less depressed but remains psychotic seems be responding either to ECT or Rexulti. Continues on Trintellix remains psychotic continue ECT 12/09: continue current management and treatment plan. 12/10: continue current management and treatment plan. 12/11: continue current management and treatment plan. 12/12/2024 Increase olanzapine to 10 mg bedtime continue ECT is psychosis not improved consider clozapine 12/13/2024 Monitor response to ECT and increase olanzapine consider clozapine patient fearful of losing her 12/14/2024 Continue olanzapine Trintellix Rexulti. Unclear if need both Rexulti and olanzapine continue ECT monitor for improving depression improving paranoia Reason for continued inpatient stay Substantial Risk for: inability to function, rapid decompensation and med/psych decompensation Time Spent With Patient Time: Total time managing care of this patient today ____ minutes.
[2024-12-15] VITALS (10 sets, daily range): BP systolic 97–136; BP diastolic 51–69; PULSE 65–90; RESP 12–16; TEMP 36.4–37.1; O2SAT 95–100
[2024-12-15] MEDS: Lactated Ringers 1,000 ML 50 ML IVCONT (06:27)
--- NOTE | 2024-12-15 06:46 | HO.ANESPROP2 ---
[facility] Active Problems Active Problems: All Active Problems HLD (hyperlipidemia) (Acute) Pre-op evaluation (Acute) Parkinsonism (Acute) Dementia, vascular (Acute) Major depressive disorder, recurrent, severe with psychotic features (Acute) Depression (Acute) Abnormal finding on EKG (Acute) Major depressive disorder, recurrent severe without psychotic features (Acute) OCD (obsessive compulsive disorder) (Acute) Past Medical History Medical History History of fracture of left ankle OCD (obsessive compulsive disorder) Major depressive disorder, recurrent severe without psychotic features S/P ECT (electroconvulsive therapy) Functional capacity: independent ambulation Family History Family History Mother CHF (congestive heart failure) Family history of problems with anesthesia: No Surgical History Surgical History No history of previous surgery History of Problems with Anesthesia: No Social History Social History Household Members: None Housing: Apartment Housing Other:: [facility] community Do you presently have visiting nurse or other home services: Yes ([employer] [facility]) Patient Tobacco Use Status: Never used Tobacco e-Cigarette/Vaping Use: Never Used service: No Sexual orientation: Straight/Heterosexual Meds Allergies Allergy/AdvReac Type Severity Reaction Status Date / Time No Known Allergies Allergy Verified 11/20/24 06:27 [No Known Allergies*] Active Medications: Current Medications Acetaminophen (Acetaminophen 325 Mg Tablet) 650 mg PO Q6H PRN PRN Reason: Headache/Pain, Scale 1-10 Al Hydroxide/Mg Hydroxide (Magnesium Hydrox/Alum Hydrox 30 Ml Oral.Susp) 30 ml PO Q6H PRN PRN Reason: Heartburn/Nausea Amlodipine Besylate (Amlodipine Besylate 5 Mg Tablet) 5 mg PO DAILY [facility]; Protocol Last Admin: 12/14/24 08:23 Dose: 5 mg Aspirin (Aspirin Enteric Coated 81 Mg Tablet.Dr) 81 mg PO DAILY DENISSE Last Admin: 12/14/24 08:23 Dose: 81 mg Atorvastatin Calcium (Atorvastatin Calcium 10 Mg Tablet) 10 mg PO BEDTIME DENISSE Last Admin: 12/14/24 20:46 Dose: 10 mg Brexpiprazole (Brexpiprazole 1 Mg Tablet) 1 mg PO DAILY [facility] Last Admin: 12/14/24 08:23 Dose: 1 mg Docusate Sodium (Docusate Sodium 100 Mg Capsule) 100 mg PO BEDTIME [facility] Last Admin: 12/14/24 20:46 Dose: 100 mg Lactated Ringer's (Lr) 1,000 mls @ 50 mls/hr IVCONT .Q20H [facility] Last Admin: 12/15/24 06:27 Dose: 50 mls/hr Lactated Ringer's (Lr) 1,000 mls @ 50 mls/hr IVCONT .Q20H [facility] Lorazepam (Lorazepam 0.5 Mg Tablet) 0.5 mg PO Q4H PRN PRN Reason: Anxiety Last Admin: 12/03/24 15:26 Dose: 0.5 mg Magnesium Hydroxide (Milk Of Magnesia 30 Ml Oral.Susp) 30 ml PO DAILY PRN PRN Reason: Constipation Memantine (Memantine Hcl 5 Mg Tablet) 5 mg PO DAILY [facility] Last Admin: 12/14/24 08:23 Dose: 5 mg Naloxone HCl (Naloxone Hcl 0.4 Mg/Ml Vial) 0.04 mg IVPUSH Q5M PRN PRN Reason: Excessive sedation or RR < 8 Olanzapine (Olanzapine 10 Mg Tablet) 10 mg PO BEDTIME [facility] Last Admin: 12/14/24 20:46 Dose: 10 mg Senna (Sennosides 8.6 Mg Tablet) 8.6 mg PO BEDTIME [facility] Last Admin: 12/14/24 20:46 Dose: 8.6 mg Trazodone HCl (Trazodone Hcl 50 Mg Tablet) 50 mg PO BEDTIME MRX1 PRN PRN Reason: Insomnia Last Admin: 12/12/24 21:08 Dose: 50 mg Vortioxetine (Vortioxetine Hydrobromide 10 Mg Tablet) 10 mg PO DAILY [facility] Last Admin: 12/14/24 08:23 Dose: 10 mg Home Medications ?Medication ?Instructions ?Recorded ?Confirmed ?Last Taken ?Type acetaminophen 500 mg tablet 500 mg PO TID PRN pain 11/09/24 11/09/24 Unknown History (Acetaminophen Extra Strength) docusate sodium 100 mg capsule 100 mg PO BEDTIME constipation 11/09/24 11/09/24 11/07/24 20:00 History (Colace) memantine 7 mg capsule 7 mg PO DAILY 11/09/24 11/09/24 11/08/24 08:00 History sprinkle,extended release 24hr sennosides 8.6 mg tablet (senna) 8.6 mg PO BEDTIME 11/09/24 11/09/24 11/07/24 20:00 History trazodone 50 mg tablet 50 mg PO BEDTIME 11/09/24 11/09/24 Unknown History Exam Height,Weight and Vital Signs: Height 5 ft 3 in Weight 57.697 kg Last Vital Signs Temp 97.5 F 12/15/24 06:21 Pulse 81 12/15/24 06:21 Resp 14 12/15/24 06:21 BP 136/69 12/15/24 06:21 Pulse Ox 97 12/15/24 06:21 O2 Del Method Room Air 12/15/24 06:21 O2 Flow Rate 2 12/13/24 09:15 Pertinent Lab Results Pertinent Lab Results: Laboratory Tests 11/08/24 11/08/24 11/10/24 19:58 21:01 07:56 WBC 9.6 8.9 RBC 4.65 5.14 Hgb 14.2 15.9 Hct 41.4 44.8 MCV 89.0 87.2 MCH 30.5 30.9 MCHC 34.3 35.5 H RDW 13.6 13.2 Plt Count 229 240 MPV 10.1 10.7 Immature Gran % (Auto) 0.2 0.3 Neut % (Auto) 64.3 63.1 Lymph % (Auto) 25.6 27.7 [place] % (Auto) 8.8 8.0 Eos % (Auto) 0.6 0.6 Baso % (Auto) 0.5 0.3 Lymph # (Auto) 2.5 2.5 [place] # (Auto) 0.9 0.7 Eos # (Auto) 0.1 0.1 Baso # (Auto) 0.1 0.0 Abs Immat Gran (auto) 0.02 0.03 Absolute Neuts (auto) 6.2 5.6 Absolute Nucleated RBC 0.000 0.000 Nucleated RBC % (auto) 0.0 0.0 Sodium 135 135 Potassium 4.4 4.0 Chloride 99 101 Carbon Dioxide 27 25 Anion Gap 13 13 BUN 19 H 16 Creatinine 0.92 0.78 Estim Creat Clear Calc 38.9 46.0 Estimated GFR 58 > 60 Random Glucose 122 H 87 Estimat Average Glucose 111 Hemoglobin A1c % 5.5 Calcium 9.4 9.3 Magnesium 2.1 Total Bilirubin 0.4 0.8 Direct Bilirubin 0.1 AST 24 25 ALT 26 16 Alkaline Phosphatase 82 69 Total Protein 6.6 6.4 L Albumin 4.3 4.2 Triglycerides 64 Cholesterol 264 H LDL Cholesterol, Calc 154 H HDL Cholesterol 98 Vitamin B12 567 Folate 9.3 TSH 2.75 Urine Color Yellow Urine Appearance Clear Urine pH 5.5 Ur Specific [place] 1.020 Urine Protein Negative Urine Glucose (UA) Negative Urine Ketones Trace Urine Blood Negative Urine Nitrite Negative Ur Leukocyte Esterase Moderate (2+) H Urine RBC 0-2 Urine WBC 21-50 H Ur Squamous Epith Cells 3-5 Urine Bacteria None Seen Hyaline Casts 0-2 Urine Opiates Screen Not Detected Ur Buprenorphine Scrn Not Detected Ur Oxycodone Screen Not Detected Urine Methadone Screen Not Detected Urine Fentanyl Screen Not Detected Ur Barbiturates Screen Not Detected Ur Phencyclidine Scrn Not Detected Ur Amphetamines Screen Not Detected U Benzodiazepines Scrn Not Detected Urine Cocaine Screen Not Detected U Marijuana (THC) Screen Not Detected Ethyl Alcohol < 10 11/21/24 12:30 WBC RBC Hgb Hct MCV MCH MCHC RDW Plt Count MPV Immature Gran % (Auto) Neut % (Auto) Lymph % (Auto) [place] % (Auto) Eos % (Auto) Baso % (Auto) Lymph # (Auto) [place] # (Auto) Eos # (Auto) Baso # (Auto) Abs Immat Gran (auto) Absolute Neuts (auto) Absolute Nucleated RBC Nucleated RBC % (auto) Sodium Potassium Chloride Carbon Dioxide Anion Gap BUN Creatinine Estim Creat Clear Calc Estimated GFR Random Glucose Estimat Average Glucose Hemoglobin A1c % Calcium Magnesium Total Bilirubin Direct Bilirubin AST ALT Alkaline Phosphatase Total Protein Albumin Triglycerides Cholesterol LDL Cholesterol, Calc HDL Cholesterol Vitamin B12 Folate TSH Urine Color Yellow Urine Appearance Clear Urine pH 5.5 Ur Specific [place] 1.015 Urine Protein Negative Urine Glucose (UA) Negative Urine Ketones Trace Urine Blood Negative Urine Nitrite Negative Ur Leukocyte Esterase Trace H Urine RBC 0-2 Urine WBC 0-5 Ur Squamous Epith Cells 0-2 Urine Bacteria None Seen Hyaline Casts 0-2 Urine Opiates Screen Ur Buprenorphine Scrn Ur Oxycodone Screen Urine Methadone Screen Urine Fentanyl Screen Ur Barbiturates Screen Ur Phencyclidine Scrn Ur Amphetamines Screen U Benzodiazepines Scrn Urine Cocaine Screen U Marijuana (THC) Screen Ethyl Alcohol Airway Mallampati Class: II TM Dist: >3cm Neck ROM: Full Heart: rrr Lungs: cta Assessment and Plan Assessment Anesthesia Assessment: Anesthesia Plan Discussed and Chart Reviewed Final Anesthetic Review Family History of Problems with Anesthesia: No History of Problems with Anesthesia: No NPO: Yes ASA Class: III Final Preanesthetic Review: No Changes in Pt Med Stat, Meds/Allgs Chart Reviewed and Consent Obtained/Reviewed Patient Risk: Intermediate Procedure Risk: Intermediate Anesthetic Plan Anesthetic Plan: GA Disposition: Standard PACU
--- NOTE | 2024-12-15 07:19 | MHC.SHP ---
Pre-Procedural Eval Section A - 24 Hr Update-Section A only Date of Service: 12/15/24 The patient is an INPATIENT: Yes Changes since office visit: Yes Patient answered all questions; No Cold of Flu in the past 2 weeks, No New Medical Problems and No Changes in Medication The patient has been examined within 24 hours of the surgical procedure. The History & Physical has been completed within 30 days and I have reviewed it.: Yes Section B - Complete if H&P > 30 days Chief Complaint: severe depression psychosis si Allergies: Allergies Allergy/AdvReac Type Severity Reaction Status Date / Time No Known Allergies Allergy Verified 11/20/24 06:27 [No Known Allergies*] Plan I have reviewed the history and physical and performed a pertinent physical examination on my patient. No changes have occurred unless specified. Time Spent With Patient Time: Total time managing care of this patient today __30__ minutes.
--- NOTE | 2024-12-15 08:42 | HO.ECTPROC ---
ECT Procedure Note Diagnosis/Treatment Date of Service: 12/15/24 Diagnosis: Major Depressive Disorder Previous ECT Date: 12/13/24 Current Treatment Number: 10 Treatment: Series Interval Clinical Notes: smiling, reporting she is feeling OK. no medical changes reported. Time: Total time managing care of this patient today __35__ minutes. ECT Settings Device: THYMATRON DGx Electrode Placement: Right Unilateral Program/Pulse Width: 0.50 Energy Percent: 100 Seizure Duration By EEG (in seconds): 56 Medications Administration General Anesthetic: Etomidate (14) Muscle Relaxant: Succinylcholine (80) Ancillary Medications Miscillaneous Medications: Propofol (20) Airway Management Airway Management: Bag Mask Ventilation Treatment Recommendations No Changes Recommended: No change Pt Tolerated Procedure w/o Issue: Yes
[2024-12-15] MEDS: amLODIPine Besylate 5 MG TABLET PO (09:00)
[2024-12-15] MEDS: Memantine HCl 5 MG TABLET PO (09:00)
[2024-12-15] MEDS: Brexpiprazole 1 MG TABLET PO (09:00)
[2024-12-15] MEDS: Vortioxetine Hydrobromide 10 MG TABLET PO (09:00)
[2024-12-15] MEDS: Aspirin Enteric Coated 81 MG TABLET.DR PO (09:00)
--- NOTE | 2024-12-15 09:33 | PC.NURSE ---
Patient returned from ECT at 8:30AM. Alert, oriented to person and place. VSS, denies dizziness/ nausea. Denies headache or any pain. Patient consumed 100%. Upon re-assessment pt is alert and oriented x 4. Will continue to monitor.
--- NOTE | 2024-12-15 13:32 | PC.NURSE ---
ACLS score of 4.2 indicating MODERATE cognitive impairment and the need for 38% cognitive assistance
[2024-12-15] MEDS: OLANZapine 10 MG TABLET PO (20:25)
[2024-12-15] MEDS: Sennosides 8.6 MG TABLET PO (20:25)
[2024-12-15] MEDS: Docusate Sodium 100 MG CAPSULE PO (20:25)
[2024-12-15] MEDS: traZODone HCL 50 MG TABLET PO (20:25)
[2024-12-15] MEDS: Atorvastatin Calcium 10 MG TABLET PO (20:25)
--- NOTE | 2024-12-16 | P.PNPSI_ITS ---
Subjective Subjective Date of Service: 12/15/24 Reason For Visit: severe depression psychosis si Subjective Notes: Conditional Voluntary Interim History: Patient seen status post ECT. Feeling somewhat out of sorts suspicious Mental Status Exam Mental Status Exam Narrative: Mental Status Exam Narrative: Appearance: Casually dressed Behavior: Superficially cooperative psychomotor: Some retardation Speech: Slowed Thought proccess linear delay noted Thought content: Focused on feeling like she is ready to leave the hospital but feels off she states People conspiring against her Mood: Anxious Affect: Flat SI:denies HI:denies VH/AH:none paranoid delusions related conspiracy against her have decreased Delusions: Insight/judgment: Impaired insight Memory/cog: Impaired memory Diagnostics Vital Signs (24Hr): Vital Signs - 24 hr 12/15/24 06:21 12/15/24 07:37 12/15/24 07:42 Temperature 97.5 F 98.3 F Pulse Rate 81 68 65 Respiratory Rate 14 12 16 Blood Pressure 136/69 103/51 L 120/59 L Pulse Oximetry 97 100 100 Oxygen Delivery Method Room Air Nasal Cannula Nasal Cannula Oxygen Flow Rate 2 2 12/15/24 07:47 12/15/24 07:52 12/15/24 08:00 Temperature 98.8 F Pulse Rate 70 79 90 Respiratory Rate 16 16 16 Blood Pressure 102/66 97/64 125/59 L Pulse Oximetry 97 96 96 Oxygen Delivery Method Room Air Room Air Room Air Oxygen Flow Rate 12/15/24 08:07 12/15/24 08:30 12/15/24 09:00 Temperature 98.3 F 98.8 F Pulse Rate 73 90 Respiratory Rate 16 16 Blood Pressure 118/64 125/59 L 125/59 L Pulse Oximetry 95 96 Oxygen Delivery Method Room Air Oxygen Flow Rate 12/15/24 20:00 Temperature 97.8 F Pulse Rate 70 Respiratory Rate 16 Blood Pressure 111/57 L Pulse Oximetry 95 Oxygen Delivery Method Room Air Oxygen Flow Rate BMI result Body Mass Index 22.5 Labs 11/10/24 07:56 11/10/24 07:56 Medications Medications Current Medications Acetaminophen (Acetaminophen 325 Mg Tablet) 650 mg PO Q6H PRN PRN Reason: Headache/Pain, Scale 1-10 Al Hydroxide/Mg Hydroxide (Magnesium Hydrox/Alum Hydrox 30 Ml Oral.Susp) 30 ml PO Q6H PRN PRN Reason: Heartburn/Nausea Amlodipine Besylate (Amlodipine Besylate 5 Mg Tablet) 5 mg PO DAILY [facility]; Protocol Last Admin: 12/15/24 09:00 Dose: 5 mg Aspirin (Aspirin Enteric Coated 81 Mg Tablet.Dr) 81 mg PO DAILY [facility] Last Admin: 12/15/24 09:00 Dose: 81 mg Atorvastatin Calcium (Atorvastatin Calcium 10 Mg Tablet) 10 mg PO BEDTIME [facility] Last Admin: 12/15/24 20:25 Dose: 10 mg Brexpiprazole (Brexpiprazole 1 Mg Tablet) 1 mg PO DAILY [facility] Last Admin: 12/15/24 09:00 Dose: 1 mg Docusate Sodium (Docusate Sodium 100 Mg Capsule) 100 mg PO BEDTIME [facility] Last Admin: 12/15/24 20:25 Dose: 100 mg Lorazepam (Lorazepam 0.5 Mg Tablet) 0.5 mg PO Q4H PRN PRN Reason: Anxiety Last Admin: 12/03/24 15:26 Dose: 0.5 mg Magnesium Hydroxide (Milk Of Magnesia 30 Ml Oral.Susp) 30 ml PO DAILY PRN PRN Reason: Constipation Memantine (Memantine Hcl 5 Mg Tablet) 5 mg PO DAILY [facility] Last Admin: 12/15/24 09:00 Dose: 5 mg Olanzapine (Olanzapine 10 Mg Tablet) 10 mg PO BEDTIME [facility] Last Admin: 12/15/24 20:25 Dose: 10 mg Senna (Sennosides 8.6 Mg Tablet) 8.6 mg PO BEDTIME [facility] Last Admin: 12/15/24 20:25 Dose: 8.6 mg Trazodone HCl (Trazodone Hcl 50 Mg Tablet) 50 mg PO BEDTIME MRX1 PRN PRN Reason: Insomnia Last Admin: 12/15/24 20:25 Dose: 50 mg Vortioxetine (Vortioxetine Hydrobromide 10 Mg Tablet) 10 mg PO DAILY [facility] Last Admin: 12/15/24 09:00 Dose: 10 mg Allergies Allergies Allergy/AdvReac Type Severity Reaction Status Date / Time No Known Allergies Allergy Verified 11/20/24 06:27 [No Known Allergies*] Assessment & Plan Assessment & Plan (1) Major depressive disorder, recurrent, severe with psychotic features: Status: Acute Code(s): F33.3 - Major depressive disorder, recurrent, severe with psychotic symptoms (2) HLD (hyperlipidemia): Status: Acute Code(s): E78.5 - Hyperlipidemia, unspecified Plan Patient is an 83-year-old female with a PMH significant for MDD, OCD, and history of left ankle fracture with ORIF who was admitted to [facility] with increased depression, decreased appetite, and medication noncompliance. 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 OP f/u with Dr. Hensley. Hypertension/Prediabetes/HLD Blood pressures have been stable Continue on amlodipine daily Patient taking a daily aspirin Labs reviewed 11/10/2024, no anemia, renal function stable Hemoglobin A1c 5.5. Encouraged activity Noted to have elevated cholesterol, total cholesterol 265, LDL 154, HDL 98 Will start low-dose atorvastatin 10 mg daily 11/2024 Patient clearly less depressed but remains suspicious of others with paranoid concerns idiosyncratic behavior caring certain wound and clothing 12/06/24 monitor response to ect consider change to cloz if remains psychitic 12/07/2024 cont ect some improvement noted still with pschosis hcp has been invoked 12/08/24 Patient less depressed but remains psychotic seems be responding either to ECT or Rexulti. Continues on Trintellix remains psychotic continue ECT 12/09: continue current management and treatment plan. 12/10: continue current management and treatment plan. 12/11: continue current management and treatment plan. 12/12/2024 Increase olanzapine to 10 mg bedtime continue ECT is psychosis not improved consider clozapine 12/13/2024 Monitor response to ECT and increase olanzapine consider clozapine patient fearful of losing her 12/15/2024 Consider Clozaril trial increase Rexulti increase Trintellix Reason for continued inpatient stay Substantial Risk for: inability to function, rapid decompensation and med/psych decompensation Time Spent With Patient Time: Total time managing care of this patient today ____ minutes.
[2024-12-16 08:00] VITALS: BP 116/59; PULSE 88; RESP 16; TEMP 36.9; O2SAT 96
[2024-12-16 09:03] VITALS: BP 116/59
[2024-12-16] MEDS: Vortioxetine Hydrobromide 10 MG TABLET PO (09:03)
[2024-12-16] MEDS: amLODIPine Besylate 5 MG TABLET PO (09:03)
[2024-12-16] MEDS: Brexpiprazole 1 MG TABLET PO (09:03)
[2024-12-16] MEDS: Memantine HCl 5 MG TABLET PO (09:03)
[2024-12-16] MEDS: Aspirin Enteric Coated 81 MG TABLET.DR PO (09:03)
--- NOTE | 2024-12-16 12:42 | HO.PSYCHPN ---
Subjective Subjective Date of Service: 12/16/24 Reason For Visit: severe depression psychosis si Subjective Notes: Conditional Voluntary Interim History: Patient was seen and discussed in rounds today. Records and plans were reviewed. She has been stable and is doing much better and is very glad that she overcame her reluctance about ECT. She is much brighter. Eating and sleeping well. No changes were made today Review of Systems Review of Systems Yes all other systems are reviewed and are negative Mental Status Exam Mental Status Exam Narrative: Mental Status Exam Narrative: Appearance: Casually dressed Behavior: Superficially cooperative psychomotor: Some retardation Speech: Slowed Thought proccess linear and goal directed Thought content: Focused on feeling like she is ready to leave the hospital but feels off she states People conspiring against her Mood: Stable Affect: Flat SI:denies HI:denies VH/AH:none no overt delusions Insight/judgment: Impaired insight Memory/cog: Impaired memory Diagnostics Vital Signs (24Hr): Vital Signs - 24 hr 12/15/24 20:00 12/16/24 08:00 12/16/24 09:03 Temperature 97.8 F 98.4 F Pulse Rate 70 88 Respiratory Rate 16 16 Blood Pressure 111/57 L 116/59 L 116/59 L Pulse Oximetry 95 96 Oxygen Delivery Method Room Air Room Air BMI result Body Mass Index 22.5 Labs 11/10/24 07:56 11/10/24 07:56 Medications Medications Current Medications Acetaminophen (Acetaminophen 325 Mg Tablet) 650 mg PO Q6H PRN PRN Reason: Headache/Pain, Scale 1-10 Al Hydroxide/Mg Hydroxide (Magnesium Hydrox/Alum Hydrox 30 Ml Oral.Susp) 30 ml PO Q6H PRN PRN Reason: Heartburn/Nausea Amlodipine Besylate (Amlodipine Besylate 5 Mg Tablet) 5 mg PO DAILY [facility]; Protocol Last Admin: 12/16/24 09:03 Dose: 5 mg Aspirin (Aspirin Enteric Coated 81 Mg Tablet.) 81 mg PO DAILY [facility] Last Admin: 12/16/24 09:03 Dose: 81 mg Atorvastatin Calcium (Atorvastatin Calcium 10 Mg Tablet) 10 mg PO BEDTIME [facility]ISSE Last Admin: 12/15/24 20:25 Dose: 10 mg Brexpiprazole (Brexpiprazole 1 Mg Tablet) 1 mg PO DAILY [facility] Last Admin: 12/16/24 09:03 Dose: 1 mg Docusate Sodium (Docusate Sodium 100 Mg Capsule) 100 mg PO BEDTIME [facility] Last Admin: 12/15/24 20:25 Dose: 100 mg Lorazepam (Lorazepam 0.5 Mg Tablet) 0.5 mg PO Q4H PRN PRN Reason: Anxiety Last Admin: 12/03/24 15:26 Dose: 0.5 mg Magnesium Hydroxide (Milk Of Magnesia 30 Ml Oral.Susp) 30 ml PO DAILY PRN PRN Reason: Constipation Memantine (Memantine Hcl 5 Mg Tablet) 5 mg PO DAILY [facility] Last Admin: 12/16/24 09:03 Dose: 5 mg Olanzapine (Olanzapine 10 Mg Tablet) 10 mg PO BEDTIME [facility] Last Admin: 12/15/24 20:25 Dose: 10 mg Senna (Sennosides 8.6 Mg Tablet) 8.6 mg PO BEDTIME [facility] Last Admin: 12/15/24 20:25 Dose: 8.6 mg Trazodone HCl (Trazodone Hcl 50 Mg Tablet) 50 mg PO BEDTIME MRX1 PRN PRN Reason: Insomnia Last Admin: 12/15/24 20:25 Dose: 50 mg Vortioxetine (Vortioxetine Hydrobromide 10 Mg Tablet) 10 mg PO DAILY [facility] Last Admin: 12/16/24 09:03 Dose: 10 mg Allergies Allergies Allergy/AdvReac Type Severity Reaction Status Date / Time No Known Allergies Allergy Verified 11/20/24 06:27 [No Known Allergies*] Assessment & Plan Assessment & Plan (1) Major depressive disorder, recurrent, severe with psychotic features: Status: Acute Code(s): F33.3 - Major depressive disorder, recurrent, severe with psychotic symptoms (2) HLD (hyperlipidemia): Status: Acute Code(s): E78.5 - Hyperlipidemia, unspecified Plan Patient is an 83-year-old female with a PMH significant for MDD, OCD, and history of left ankle fracture with ORIF who was admitted to [facility] with increased depression, decreased appetite, and medication noncompliance. 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 OP f/u with Dr. Hensley. Hypertension/Prediabetes/HLD Blood pressures have been stable Continue on amlodipine daily Patient taking a daily aspirin Labs reviewed 11/10/2024, no anemia, renal function stable Hemoglobin A1c 5.5. Encouraged activity Noted to have elevated cholesterol, total cholesterol 265, LDL 154, HDL 98 Will start low-dose atorvastatin 10 mg daily 11/2024 Patient clearly less depressed but remains suspicious of others with paranoid concerns idiosyncratic behavior caring certain wound and clothing 12/06/24 monitor response to ect consider change to cloz if remains psychitic 12/07/2024 cont ect some improvement noted still with pschosis hcp has been invoked 12/08/24 Patient less depressed but remains psychotic seems be responding either to ECT or Rexulti. Continues on Trintellix remains psychotic continue ECT 12/09: continue current management and treatment plan. 12/10: continue current management and treatment plan. 12/11: continue current management and treatment plan. 12/12/2024 Increase olanzapine to 10 mg bedtime continue ECT is psychosis not improved consider clozapine 12/13/2024 Monitor response to ECT and increase olanzapine consider clozapine patient fearful of losing her 12/15/2024 Consider Clozaril trial increase Rexulti increase Trintellix 12/16: Continue current regimen and plans. Reason for continued inpatient stay Substantial Risk for: med/psych decompensation Time Spent With Patient Time: Total time managing care of this patient today ____ minutes.
[2024-12-16] MEDS: Docusate Sodium 100 MG CAPSULE PO (19:55)
[2024-12-16] MEDS: Sennosides 8.6 MG TABLET PO (19:55)
[2024-12-16] MEDS: traZODone HCL 50 MG TABLET PO (19:55)
[2024-12-16] MEDS: OLANZapine 10 MG TABLET PO (19:55)
[2024-12-16] MEDS: Atorvastatin Calcium 10 MG TABLET PO (19:55)
[2024-12-16 20:00] VITALS: BP 146/70; PULSE 82; RESP 16; TEMP 37.1; O2SAT 95
[2024-12-17 08:00] VITALS: BP 132/61; PULSE 81; RESP 16; TEMP 36.6; O2SAT 95
[2024-12-17] MEDS: Aspirin Enteric Coated 81 MG TABLET.DR PO (08:29)
[2024-12-17 08:30] VITALS: BP 132/61
[2024-12-17] MEDS: amLODIPine Besylate 5 MG TABLET PO (08:30)
[2024-12-17] MEDS: Memantine HCl 5 MG TABLET PO (08:30)
[2024-12-17] MEDS: Brexpiprazole 1 MG TABLET PO (08:30)
[2024-12-17] MEDS: Vortioxetine Hydrobromide 10 MG TABLET PO (08:30)
[2024-12-17 11:24] VITALS: BMI 22.6
--- NOTE | 2024-12-17 11:27 | HO.PSYCHPN ---
Subjective Subjective Date of Service: 12/17/24 Reason For Visit: severe depression psychosis si Subjective Notes: Conditional Voluntary Interim History: Patient was seen and discussed in rounds today. Records and plans were reviewed. She has been doing well with improved affect and decreased level of depression with ECT. She is due for another treatment tomorrow but is eager to be discharged home soon. No complaints or side effects.. No SI. No changes were made today Review of Systems Review of Systems Yes all other systems are reviewed and are negative Mental Status Exam Mental Status Exam Narrative: Mental Status Exam Narrative: Appearance: Casually dressed Behavior: Superficially cooperative psychomotor: Some retardation Speech: Slowed Thought proccess linear and goal directed Thought content: Focused on feeling like she is ready to leave the hospital but feels off she states People conspiring against her Mood: Stable Affect: Flat SI:denies HI:denies VH/AH:none no overt delusions Insight/judgment: Impaired insight Memory/cog: Impaired memory Diagnostics Vital Signs (24Hr): Vital Signs - 24 hr 12/16/24 20:00 12/17/24 08:00 12/17/24 08:30 Temperature 98.7 F 97.9 F Pulse Rate 82 81 Respiratory Rate 16 16 Blood Pressure 146/70 H 132/61 132/61 Pulse Oximetry 95 95 Oxygen Delivery Method Room Air Room Air BMI result Body Mass Index 22.6 Labs 11/10/24 07:56 11/10/24 07:56 Medications Medications Current Medications Acetaminophen (Acetaminophen 325 Mg Tablet) 650 mg PO Q6H PRN PRN Reason: Headache/Pain, Scale 1-10 Al Hydroxide/Mg Hydroxide (Magnesium Hydrox/Alum Hydrox 30 Ml Oral.Susp) 30 ml PO Q6H PRN PRN Reason: Heartburn/Nausea Amlodipine Besylate (Amlodipine Besylate 5 Mg Tablet) 5 mg PO DAILY [facility]; Protocol Last Admin: 12/17/24 08:30 Dose: 5 mg Aspirin (Aspirin Enteric Coated 81 Mg Tablet.) 81 mg PO DAILY [facility] Last Admin: 12/17/24 08:29 Dose: 81 mg Atorvastatin Calcium (Atorvastatin Calcium 10 Mg Tablet) 10 mg PO BEDTIME [facility] Last Admin: 12/16/24 19:55 Dose: 10 mg Brexpiprazole (Brexpiprazole 1 Mg Tablet) 1 mg PO DAILY [facility] Last Admin: 12/17/24 08:30 Dose: 1 mg Docusate Sodium (Docusate Sodium 100 Mg Capsule) 100 mg PO BEDTIME [facility]IS[facility] Last Admin: 12/16/24 19:55 Dose: 100 mg Lorazepam (Lorazepam 0.5 Mg Tablet) 0.5 mg PO Q4H PRN PRN Reason: Anxiety Last Admin: 12/03/24 15:26 Dose: 0.5 mg Magnesium Hydroxide (Milk Of Magnesia 30 Ml Oral.Susp) 30 ml PO DAILY PRN PRN Reason: Constipation Memantine (Memantine Hcl 5 Mg Tablet) 5 mg PO DAILY [facility] Last Admin: 12/17/24 08:30 Dose: 5 mg Olanzapine (Olanzapine 10 Mg Tablet) 10 mg PO BEDTIME [facility]IS[facility] Last Admin: 12/16/24 19:55 Dose: 10 mg Senna (Sennosides 8.6 Mg Tablet) 8.6 mg PO BEDTIME [facility]ISSE Last Admin: 12/16/24 19:55 Dose: 8.6 mg Trazodone HCl (Trazodone Hcl 50 Mg Tablet) 50 mg PO BEDTIME MRX1 PRN PRN Reason: Insomnia Last Admin: 12/16/24 19:55 Dose: 50 mg Vortioxetine (Vortioxetine Hydrobromide 10 Mg Tablet) 10 mg PO DAILY [facility] Last Admin: 12/17/24 08:30 Dose: 10 mg Allergies Allergies Allergy/AdvReac Type Severity Reaction Status Date / Time No Known Allergies Allergy Verified 11/20/24 06:27 [No Known Allergies*] Assessment & Plan Assessment & Plan (1) Major depressive disorder, recurrent, severe with psychotic features: Status: Acute Code(s): F33.3 - Major depressive disorder, recurrent, severe with psychotic symptoms (2) HLD (hyperlipidemia): Status: Acute Code(s): E78.5 - Hyperlipidemia, unspecified Plan Patient is an 83-year-old female with a PMH significant for MDD, OCD, and history of left ankle fracture with ORIF who was admitted to [facility] with increased depression, decreased appetite, and medication noncompliance. 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 OP f/u with Dr. Hensley. Hypertension/Prediabetes/HLD Blood pressures have been stable Continue on amlodipine daily Patient taking a daily aspirin Labs reviewed 11/10/2024, no anemia, renal function stable Hemoglobin A1c 5.5. Encouraged activity Noted to have elevated cholesterol, total cholesterol 265, LDL 154, HDL 98 Will start low-dose atorvastatin 10 mg daily 11/2024 Patient clearly less depressed but remains suspicious of others with paranoid concerns idiosyncratic behavior caring certain wound and clothing 12/06/24 monitor response to ect consider change to cloz if remains psychitic 12/07/2024 cont ect some improvement noted still with pschosis hcp has been invoked 12/08/24 Patient less depressed but remains psychotic seems be responding either to ECT or Rexulti. Continues on Trintellix remains psychotic continue ECT 12/09: continue current management and treatment plan. 12/10: continue current management and treatment plan. 12/11: continue current management and treatment plan. 12/12/2024 Increase olanzapine to 10 mg bedtime continue ECT is psychosis not improved consider clozapine 12/13/2024 Monitor response to ECT and increase olanzapine consider clozapine patient fearful of losing her 12/15/2024 Consider Clozaril trial increase Rexulti increase Trintellix 12/16: Continue current regimen and plans. 12/17: Continue current regimen and plans. Reason for continued inpatient stay Substantial Risk for: med/psych decompensation Time Spent With Patient Time: Total time managing care of this patient today ____ minutes.
[2024-12-17 20:00] VITALS: BP 149/67; PULSE 69; TEMP 36.3; O2SAT 96
[2024-12-17] MEDS: Atorvastatin Calcium 10 MG TABLET PO (20:15)
[2024-12-17] MEDS: Sennosides 8.6 MG TABLET PO (20:15)
[2024-12-17] MEDS: Docusate Sodium 100 MG CAPSULE PO (20:15)
[2024-12-17] MEDS: OLANZapine 10 MG TABLET PO (20:15)
[2024-12-18] VITALS (8 sets, daily range): BP systolic 116–143; BP diastolic 57–71; PULSE 63–78; RESP 16–18; TEMP 36.8–37; O2SAT 93–99
[2024-12-18] MEDS: Lactated Ringers 1,000 ML 100 ML IVCONT (06:38)
--- NOTE | 2024-12-18 07:58 | MHC.SHP ---
Pre-Procedural Eval Section A - 24 Hr Update-Section A only Date of Service: 12/18/24 The patient is an INPATIENT: Yes Changes since office visit: Yes Patient answered all questions; No Cold of Flu in the past 2 weeks, No New Medical Problems and No Changes in Medication The patient has been examined within 24 hours of the surgical procedure. The History & Physical has been completed within 30 days and I have reviewed it.: Yes Section B - Complete if H&P > 30 days Chief Complaint: severe depression psychosis si Allergies: Allergies Allergy/AdvReac Type Severity Reaction Status Date / Time No Known Allergies Allergy Verified 11/20/24 06:27 [No Known Allergies*] Plan I have reviewed the history and physical and performed a pertinent physical examination on my patient. No changes have occurred unless specified. Time Spent With Patient Time: Total time managing care of this patient today ____ minutes.
--- NOTE | 2024-12-18 07:59 | HO.ECTPROC ---
ECT Procedure Note Diagnosis/Treatment Date of Service: 12/18/24 Diagnosis: Major Depressive Disorder Previous ECT Date: 12/15/24 Current Treatment Number: 11 Treatment: Series Interval Clinical Notes: smiling, reporting she is feeling OK. no medical changes reported. Time: Total time managing care of this patient today ____ minutes. ECT Settings Device: THYMATRON DGx Electrode Placement: Right Unilateral Program/Pulse Width: 0.50 Energy Percent: 100 Seizure Duration By EEG (in seconds): 45 Medications Administration General Anesthetic: Etomidate (14) Muscle Relaxant: Succinylcholine (80) Ancillary Medications Miscillaneous Medications: Propofol (20) Airway Management Airway Management: Bag Mask Ventilation Treatment Recommendations No Changes Recommended: No change Pt Tolerated Procedure w/o Issue: Yes
--- NOTE | 2024-12-18 08:19 | P.CONAN_ITS ---
[facility] Active Problems Active Problems: All Active Problems HLD (hyperlipidemia) (Acute) Pre-op evaluation (Acute) Parkinsonism (Acute) Dementia, vascular (Acute) Major depressive disorder, recurrent, severe with psychotic features (Acute) Depression (Acute) Abnormal finding on EKG (Acute) Major depressive disorder, recurrent severe without psychotic features (Acute) OCD (obsessive compulsive disorder) (Acute) Past Medical History Medical History History of fracture of left ankle OCD (obsessive compulsive disorder) Major depressive disorder, recurrent severe without psychotic features S/P ECT (electroconvulsive therapy) Functional capacity: independent ambulation Family History Family History Mother CHF (congestive heart failure) Family history of problems with anesthesia: No Surgical History Surgical History No history of previous surgery History of Problems with Anesthesia: No Social History Social History Household Members: None Housing: Apartment Housing Other:: Residential community Do you presently have visiting nurse or other home services: Yes ([employer] [facility]) Patient Tobacco Use Status: Never used Tobacco e-Cigarette/Vaping Use: Never Used service: No Sexual orientation: Straight/Heterosexual Meds Allergies Allergy/AdvReac Type Severity Reaction Status Date / Time No Known Allergies Allergy Verified 11/20/24 06:27 [No Known Allergies*] Active Medications: Current Medications Acetaminophen (Acetaminophen 325 Mg Tablet) 650 mg PO Q6H PRN PRN Reason: Headache/Pain, Scale 1-10 Al Hydroxide/Mg Hydroxide (Magnesium Hydrox/Alum Hydrox 30 Ml Oral.Susp) 30 ml PO Q6H PRN PRN Reason: Heartburn/Nausea Amlodipine Besylate (Amlodipine Besylate 5 Mg Tablet) 5 mg PO DAILY [facility]; Protocol Last Admin: 12/17/24 08:30 Dose: 5 mg Aspirin (Aspirin Enteric Coated 81 Mg Tablet.Dr) 81 mg PO DAILY [facility] Last Admin: 12/17/24 08:29 Dose: 81 mg Atorvastatin Calcium (Atorvastatin Calcium 10 Mg Tablet) 10 mg PO BEDTIME [facility]ISSE Last Admin: 12/17/24 20:15 Dose: 10 mg Brexpiprazole (Brexpiprazole 1 Mg Tablet) 1 mg PO DAILY [facility] Last Admin: 12/17/24 08:30 Dose: 1 mg Docusate Sodium (Docusate Sodium 100 Mg Capsule) 100 mg PO BEDTIME [facility] Last Admin: 12/17/24 20:15 Dose: 100 mg Lactated Ringer's (Lr) 1,000 mls @ 100 mls/hr IVCONT .Q10H [facility] Last Admin: 12/18/24 06:38 Dose: 100 mls/hr Lorazepam (Lorazepam 0.5 Mg Tablet) 0.5 mg PO Q4H PRN PRN Reason: Anxiety Last Admin: 12/03/24 15:26 Dose: 0.5 mg Magnesium Hydroxide (Milk Of Magnesia 30 Ml Oral.Susp) 30 ml PO DAILY PRN PRN Reason: Constipation Memantine (Memantine Hcl 5 Mg Tablet) 5 mg PO DAILY [facility] Last Admin: 12/17/24 08:30 Dose: 5 mg Olanzapine (Olanzapine 10 Mg Tablet) 10 mg PO BEDTIME [facility] Last Admin: 12/17/24 20:15 Dose: 10 mg Senna (Sennosides 8.6 Mg Tablet) 8.6 mg PO BEDTIME [facility] Last Admin: 12/17/24 20:15 Dose: 8.6 mg Trazodone HCl (Trazodone Hcl 50 Mg Tablet) 50 mg PO BEDTIME MRX1 PRN PRN Reason: Insomnia Last Admin: 12/16/24 19:55 Dose: 50 mg Vortioxetine (Vortioxetine Hydrobromide 10 Mg Tablet) 10 mg PO DAILY [facility] Last Admin: 12/17/24 08:30 Dose: 10 mg Home Medications ?Medication ?Instructions ?Recorded ?Confirmed ?Last Taken ?Type acetaminophen 500 mg tablet 500 mg PO TID PRN pain 11/09/24 11/09/24 Unknown History (Acetaminophen Extra Strength) docusate sodium 100 mg capsule 100 mg PO BEDTIME constipation 11/09/24 11/09/24 11/07/24 20:00 History (Colace) memantine 7 mg capsule 7 mg PO DAILY 11/09/24 11/09/24 11/08/24 08:00 History sprinkle,extended release 24hr sennosides 8.6 mg tablet (senna) 8.6 mg PO BEDTIME 11/09/24 11/09/24 11/07/24 20:00 History trazodone 50 mg tablet 50 mg PO BEDTIME 11/09/24 11/09/24 Unknown History Exam Height,Weight and Vital Signs: Height 5 ft 3 in Weight 57.833 kg Last Vital Signs Temp 98.3 F 12/18/24 06:37 Pulse 77 12/18/24 06:37 Resp 16 12/18/24 06:37 BP 133/64 12/18/24 06:37 Pulse Ox 97 12/18/24 06:37 O2 Del Method Room Air 12/18/24 06:37 O2 Flow Rate 2 12/15/24 07:42 Pertinent Lab Results Pertinent Lab Results: Laboratory Tests 11/08/24 11/08/24 11/10/24 19:58 21:01 07:56 WBC 9.6 8.9 RBC 4.65 5.14 Hgb 14.2 15.9 Hct 41.4 44.8 MCV 89.0 87.2 MCH 30.5 30.9 MCHC 34.3 35.5 H RDW 13.6 13.2 Plt Count 229 240 MPV 10.1 10.7 Immature Gran % (Auto) 0.2 0.3 Neut % (Auto) 64.3 63.1 Lymph % (Auto) 25.6 27.7 [place] % (Auto) 8.8 8.0 Eos % (Auto) 0.6 0.6 Baso % (Auto) 0.5 0.3 Lymph # (Auto) 2.5 2.5 [place] # (Auto) 0.9 0.7 Eos # (Auto) 0.1 0.1 Baso # (Auto) 0.1 0.0 Abs Immat Gran (auto) 0.02 0.03 Absolute Neuts (auto) 6.2 5.6 Absolute Nucleated RBC 0.000 0.000 Nucleated RBC % (auto) 0.0 0.0 Sodium 135 135 Potassium 4.4 4.0 Chloride 99 101 Carbon Dioxide 27 25 Anion Gap 13 13 BUN 19 H 16 Creatinine 0.92 0.78 Estim Creat Clear Calc 38.9 46.0 Estimated GFR 58 > 60 Random Glucose 122 H 87 Estimat Average Glucose 111 Hemoglobin A1c % 5.5 Calcium 9.4 9.3 Magnesium 2.1 Total Bilirubin 0.4 0.8 Direct Bilirubin 0.1 AST 24 25 ALT 26 16 Alkaline Phosphatase 82 69 Total Protein 6.6 6.4 L Albumin 4.3 4.2 Triglycerides 64 Cholesterol 264 H LDL Cholesterol, Calc 154 H HDL Cholesterol 98 Vitamin B12 567 Folate 9.3 TSH 2.75 Urine Color Yellow Urine Appearance Clear Urine pH 5.5 Ur Specific [place] 1.020 Urine Protein Negative Urine Glucose (UA) Negative Urine Ketones Trace Urine Blood Negative Urine Nitrite Negative Ur Leukocyte Esterase Moderate (2+) H Urine RBC 0-2 Urine WBC 21-50 H Ur Squamous Epith Cells 3-5 Urine Bacteria None Seen Hyaline Casts 0-2 Urine Opiates Screen Not Detected Ur Buprenorphine Scrn Not Detected Ur Oxycodone Screen Not Detected Urine Methadone Screen Not Detected Urine Fentanyl Screen Not Detected Ur Barbiturates Screen Not Detected Ur Phencyclidine Scrn Not Detected Ur Amphetamines Screen Not Detected U Benzodiazepines Scrn Not Detected Urine Cocaine Screen Not Detected U Marijuana (THC) Screen Not Detected Ethyl Alcohol < 10 11/21/24 12:30 WBC RBC Hgb Hct MCV MCH MCHC RDW Plt Count MPV Immature Gran % (Auto) Neut % (Auto) Lymph % (Auto) [place] % (Auto) Eos % (Auto) Baso % (Auto) Lymph # (Auto) [place] # (Auto) Eos # (Auto) Baso # (Auto) Abs Immat Gran (auto) Absolute Neuts (auto) Absolute Nucleated RBC Nucleated RBC % (auto) Sodium Potassium Chloride Carbon Dioxide Anion Gap BUN Creatinine Estim Creat Clear Calc Estimated GFR Random Glucose Estimat Average Glucose Hemoglobin A1c % Calcium Magnesium Total Bilirubin Direct Bilirubin AST ALT Alkaline Phosphatase Total Protein Albumin Triglycerides Cholesterol LDL Cholesterol, Calc HDL Cholesterol Vitamin B12 Folate TSH Urine Color Yellow Urine Appearance Clear Urine pH 5.5 Ur Specific [place] 1.015 Urine Protein Negative Urine Glucose (UA) Negative Urine Ketones Trace Urine Blood Negative Urine Nitrite Negative Ur Leukocyte Esterase Trace H Urine RBC 0-2 Urine WBC 0-5 Ur Squamous Epith Cells 0-2 Urine Bacteria None Seen Hyaline Casts 0-2 Urine Opiates Screen Ur Buprenorphine Scrn Ur Oxycodone Screen Urine Methadone Screen Urine Fentanyl Screen Ur Barbiturates Screen Ur Phencyclidine Scrn Ur Amphetamines Screen U Benzodiazepines Scrn Urine Cocaine Screen U Marijuana (THC) Screen Ethyl Alcohol Airway Mallampati Class: II TM Dist: >3cm Neck ROM: Full Loose/Missing/Broken Teeth: No Heart: RRR Lungs: CTA Assessment and Plan Final Anesthetic Review Family History of Problems with Anesthesia: No History of Problems with Anesthesia: No NPO: Yes ASA Class: II Final Preanesthetic Review: Meds/Allgs Chart Reviewed, Consent Obtained/Reviewed and Anes Risks/Benef Reviewed Patient Risk: Low Procedure Risk: Intermediate Anesthetic Plan Anesthetic Plan: GA
[2024-12-18] MEDS: Memantine HCl 5 MG TABLET PO (09:13)
[2024-12-18] MEDS: amLODIPine Besylate 5 MG TABLET PO (09:13)
[2024-12-18] MEDS: Aspirin Enteric Coated 81 MG TABLET.DR PO (09:13)
[2024-12-18] MEDS: Brexpiprazole 1 MG TABLET PO (09:13)
[2024-12-18] MEDS: Vortioxetine Hydrobromide 10 MG TABLET PO (09:13)
[2024-12-18] MEDS: OLANZapine 10 MG TABLET PO (20:00)
[2024-12-18] MEDS: Atorvastatin Calcium 10 MG TABLET PO (20:00)
[2024-12-18] MEDS: Sennosides 8.6 MG TABLET PO (20:00)
[2024-12-18] MEDS: Docusate Sodium 100 MG CAPSULE PO (20:00)
--- NOTE | 2024-12-18 22:52 | P.PNPSI_ITS ---
Subjective Subjective Date of Service: 12/18/24 Reason For Visit: severe depression psychosis si Subjective Notes: Conditional Voluntary Interim History: pt with some gradual improve less PI remains slowed Mental Status Exam Mental Status Exam Narrative: Mental Status Exam Narrative: Appearance: Casually dressed Behavior: Superficially cooperative psychomotor: Some retardation Speech: Slowed Thought proccess linear and goal directed Thought content: Focused on feeling like she is ready to leave the hospital but feels held up Mood: Stable Affect: Flat SI:denies HI:denies VH/AH:none no overt delusions Insight/judgment: Impaired insight Memory/cog: Impaired memory Diagnostics Vital Signs (24Hr): Vital Signs - 24 hr 12/18/24 06:37 12/18/24 08:00 12/18/24 08:16 Temperature 98.3 F 98.2 F 98.6 F Pulse Rate 77 67 67 Respiratory Rate 16 16 18 Blood Pressure 133/64 136/63 143/65 H Pulse Oximetry 97 97 95 Oxygen Delivery Method Room Air Room Air Nasal Cannula Oxygen Flow Rate 2 12/18/24 08:21 12/18/24 08:26 12/18/24 08:31 Temperature Pulse Rate 63 65 72 Respiratory Rate 16 16 16 Blood Pressure 120/62 116/57 L 136/71 Pulse Oximetry 96 95 96 Oxygen Delivery Method Nasal Cannula Nasal Cannula Room Air Oxygen Flow Rate 2 12/18/24 08:46 12/18/24 19:58 Temperature 98.6 F 98.2 F Pulse Rate 65 78 Respiratory Rate 16 16 Blood Pressure 136/68 120/60 Pulse Oximetry 99 93 Oxygen Delivery Method Room Air Room Air Oxygen Flow Rate BMI result Body Mass Index 22.6 Labs 11/10/24 07:56 11/10/24 07:56 Medications Medications Current Medications Acetaminophen (Acetaminophen 325 Mg Tablet) 650 mg PO Q6H PRN PRN Reason: Headache/Pain, Scale 1-10 Al Hydroxide/Mg Hydroxide (Magnesium Hydrox/Alum Hydrox 30 Ml Oral.Susp) 30 ml PO Q6H PRN PRN Reason: Heartburn/Nausea Amlodipine Besylate (Amlodipine Besylate 5 Mg Tablet) 5 mg PO DAILY [facility]; Protocol Last Admin: 12/18/24 09:13 Dose: 5 mg Aspirin (Aspirin Enteric Coated 81 Mg Tablet.) 81 mg PO DAILY [facility] Last Admin: 12/18/24 09:13 Dose: 81 mg Atorvastatin Calcium (Atorvastatin Calcium 10 Mg Tablet) 10 mg PO BEDTIME [facility] Last Admin: 12/18/24 20:00 Dose: 10 mg Brexpiprazole (Brexpiprazole 1 Mg Tablet) 1 mg PO DAILY [facility] Last Admin: 12/18/24 09:13 Dose: 1 mg Docusate Sodium (Docusate Sodium 100 Mg Capsule) 100 mg PO BEDTIME [facility] Last Admin: 12/18/24 20:00 Dose: 100 mg Lactated Ringer's (Lr) 1,000 mls @ 100 mls/hr IVCONT .Q10H [facility] Last Admin: 12/18/24 06:38 Dose: 100 mls/hr Lorazepam (Lorazepam 0.5 Mg Tablet) 0.5 mg PO Q4H PRN PRN Reason: Anxiety Last Admin: 12/03/24 15:26 Dose: 0.5 mg Magnesium Hydroxide (Milk Of Magnesia 30 Ml Oral.Susp) 30 ml PO DAILY PRN PRN Reason: Constipation Memantine (Memantine Hcl 5 Mg Tablet) 5 mg PO DAILY [facility] Last Admin: 12/18/24 09:13 Dose: 5 mg Olanzapine (Olanzapine 10 Mg Tablet) 10 mg PO BEDTIME [facility] Last Admin: 12/18/24 20:00 Dose: 10 mg Senna (Sennosides 8.6 Mg Tablet) 8.6 mg PO BEDTIME [facility] Last Admin: 12/18/24 20:00 Dose: 8.6 mg Trazodone HCl (Trazodone Hcl 50 Mg Tablet) 50 mg PO BEDTIME MRX1 PRN PRN Reason: Insomnia Last Admin: 12/16/24 19:55 Dose: 50 mg Vortioxetine (Vortioxetine Hydrobromide 10 Mg Tablet) 10 mg PO DAILY [facility] Last Admin: 12/18/24 09:13 Dose: 10 mg Allergies Allergies Allergy/AdvReac Type Severity Reaction Status Date / Time No Known Allergies Allergy Verified 11/20/24 06:27 [No Known Allergies*] Assessment & Plan Assessment & Plan (1) Major depressive disorder, recurrent, severe with psychotic features: Status: Acute Code(s): F33.3 - Major depressive disorder, recurrent, severe with psychotic symptoms (2) HLD (hyperlipidemia): Status: Acute Code(s): E78.5 - Hyperlipidemia, unspecified Plan Patient is an 83-year-old female with a PMH significant for MDD, OCD, and history of left ankle fracture with ORIF who was admitted to [facility] with increased depression, decreased appetite, and medication noncompliance. 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 OP f/u with Dr. Hensley. Hypertension/Prediabetes/HLD Blood pressures have been stable Continue on amlodipine daily Patient taking a daily aspirin Labs reviewed 11/10/2024, no anemia, renal function stable Hemoglobin A1c 5.5. Encouraged activity Noted to have elevated cholesterol, total cholesterol 265, LDL 154, HDL 98 Will start low-dose atorvastatin 10 mg daily 11/2024 Patient clearly less depressed but remains suspicious of others with paranoid concerns idiosyncratic behavior caring certain wound and clothing 12/06/24 monitor response to ect consider change to cloz if remains psychitic 12/07/2024 cont ect some improvement noted still with pschosis hcp has been invoked 12/08/24 Patient less depressed but remains psychotic seems be responding either to ECT or Rexulti. Continues on Trintellix remains psychotic continue ECT 12/09: continue current management and treatment plan. 12/10: continue current management and treatment plan. 12/11: continue current management and treatment plan. 12/12/2024 Increase olanzapine to 10 mg bedtime continue ECT is psychosis not improved consider clozapine 12/13/2024 Monitor response to ECT and increase olanzapine consider clozapine patient fearful of losing her 12/15/2024 Consider Clozaril trial increase Rexulti increase Trintellix 12/16: Continue current regimen and plans. 12/17: Continue current regimen and plans 12/18/24 Cont olanzapine restart namenda may help with energy mood cognition Patient educated on: medication risk/benefits and therapeutic strategies Informed Consent: further education needed Reason for continued inpatient stay Substantial Risk for: inability to function and rapid decompensation Time Spent With Patient Time: Total time managing care of this patient today ____ minutes.
[2024-12-19 08:17] VITALS: BP 144/65; PULSE 68; RESP 16; TEMP 36.7; O2SAT 97
[2024-12-19] MEDS: Vortioxetine Hydrobromide 10 MG TABLET PO (08:21)
[2024-12-19] MEDS: amLODIPine Besylate 5 MG TABLET PO (08:21)
[2024-12-19] MEDS: Brexpiprazole 1 MG TABLET PO (08:21)
[2024-12-19] MEDS: Aspirin Enteric Coated 81 MG TABLET.DR PO (08:21)
[2024-12-19] MEDS: Memantine HCl 5 MG TABLET PO (08:22)
[2024-12-19 20:00] VITALS: BP 132/61; PULSE 71; RESP 16; TEMP 36.8; O2SAT 95
[2024-12-19] MEDS: Docusate Sodium 100 MG CAPSULE PO (20:39)
[2024-12-19] MEDS: OLANZapine 10 MG TABLET PO (20:39)
[2024-12-19] MEDS: Atorvastatin Calcium 10 MG TABLET PO (20:40)
[2024-12-19] MEDS: Sennosides 8.6 MG TABLET PO (20:40)
--- NOTE | 2024-12-19 23:59 | P.PNPSI_ITS ---
Subjective Subjective Date of Service: 12/19/24 Reason For Visit: severe depression psychosis si Subjective Notes: Conditional Voluntary Healthcare Proxy: Yes Interim History: Patient seen chart reviewed case reviewed in treatment planning. Patient has a much [place] range of affect feeling significantly better more alert less withdrawn. Seems significantly more like her self more spontaneous in speech no gross paranoia. Mental Status Exam Mental Status Exam Narrative: Mental Status Exam Narrative: Appearance: Casually dressed Behavior: Superficially cooperative psychomotor: Some retardation Speech: Slowed Thought proccess linear and goal directed Thought content: Focused on feeling better missing her Mood: Feeling ok Affect: Appropriate to mood SI:denies HI:denies VH/AH:none no overt delusions Insight/judgment: Much improved Memory/cog: Spotty recent memory during ECT Diagnostics Vital Signs (24Hr): Vital Signs - 24 hr 12/19/24 08:17 12/19/24 20:00 Temperature 98.1 F 98.2 F Pulse Rate 68 71 Respiratory Rate 16 16 Blood Pressure 144/65 H 132/61 Pulse Oximetry 97 95 Oxygen Delivery Method Room Air Room Air BMI result Body Mass Index 22.6 Labs 11/10/24 07:56 11/10/24 07:56 Medications Medications Current Medications Acetaminophen (Acetaminophen 325 Mg Tablet) 650 mg PO Q6H PRN PRN Reason: Headache/Pain, Scale 1-10 Al Hydroxide/Mg Hydroxide (Magnesium Hydrox/Alum Hydrox 30 Ml Oral.Susp) 30 ml PO Q6H PRN PRN Reason: Heartburn/Nausea Amlodipine Besylate (Amlodipine Besylate 5 Mg Tablet) 5 mg PO DAILY [facility]; Protocol Last Admin: 12/19/24 08:21 Dose: 5 mg Aspirin (Aspirin Enteric Coated 81 Mg Tablet.) 81 mg PO DAILY [facility] Last Admin: 12/19/24 08:21 Dose: 81 mg Atorvastatin Calcium (Atorvastatin Calcium 10 Mg Tablet) 10 mg PO BEDTIME [facility] Last Admin: 12/19/24 20:40 Dose: 10 mg Brexpiprazole (Brexpiprazole 1 Mg Tablet) 1 mg PO DAILY [facility] Last Admin: 12/19/24 08:21 Dose: 1 mg Docusate Sodium (Docusate Sodium 100 Mg Capsule) 100 mg PO BEDTIME [facility] Last Admin: 12/19/24 20:39 Dose: 100 mg Lactated Ringer's (Lr) 1,000 mls @ 100 mls/hr IVCONT .Q10H [facility] Last Admin: 12/18/24 06:38 Dose: 100 mls/hr Lorazepam (Lorazepam 0.5 Mg Tablet) 0.5 mg PO Q4H PRN PRN Reason: Anxiety Last Admin: 12/03/24 15:26 Dose: 0.5 mg Magnesium Hydroxide (Milk Of Magnesia 30 Ml Oral.Susp) 30 ml PO DAILY PRN PRN Reason: Constipation Memantine (Memantine Hcl 5 Mg Tablet) 5 mg PO DAILY [facility] Last Admin: 12/19/24 08:22 Dose: 5 mg Olanzapine (Olanzapine 10 Mg Tablet) 10 mg PO BEDTIME [facility] Last Admin: 12/19/24 20:39 Dose: 10 mg Senna (Sennosides 8.6 Mg Tablet) 8.6 mg PO BEDTIME [facility] Last Admin: 12/19/24 20:40 Dose: 8.6 mg Trazodone HCl (Trazodone Hcl 50 Mg Tablet) 50 mg PO BEDTIME MRX1 PRN PRN Reason: Insomnia Last Admin: 12/16/24 19:55 Dose: 50 mg Vortioxetine (Vortioxetine Hydrobromide 10 Mg Tablet) 10 mg PO DAILY [facility] Last Admin: 12/19/24 08:21 Dose: 10 mg Allergies Allergies Allergy/AdvReac Type Severity Reaction Status Date / Time No Known Allergies Allergy Verified 11/20/24 06:27 [No Known Allergies*] Assessment & Plan Assessment & Plan (1) Major depressive disorder, recurrent, severe with psychotic features: Status: Acute Code(s): F33.3 - Major depressive disorder, recurrent, severe with psychotic symptoms (2) HLD (hyperlipidemia): Status: Acute Code(s): E78.5 - Hyperlipidemia, unspecified Plan Patient is an 83-year-old female with a PMH significant for MDD, OCD, and history of left ankle fracture with ORIF who was admitted to [facility] with increased depression, decreased appetite, and medication noncompliance. 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 OP f/u with Dr. Hensley. Hypertension/Prediabetes/HLD Blood pressures have been stable Continue on amlodipine daily Patient taking a daily aspirin Labs reviewed 11/10/2024, no anemia, renal function stable Hemoglobin A1c 5.5. Encouraged activity Noted to have elevated cholesterol, total cholesterol 265, LDL 154, HDL 98 Will start low-dose atorvastatin 10 mg daily 11/2024 Patient clearly less depressed but remains suspicious of others with paranoid concerns idiosyncratic behavior caring certain wound and clothing 12/06/24 monitor response to ect consider change to cloz if remains psychitic 12/07/2024 cont ect some improvement noted still with pschosis hcp has been invoked 12/08/24 Patient less depressed but remains psychotic seems be responding either to ECT or Rexulti. Continues on Trintellix remains psychotic continue ECT 12/09: continue current management and treatment plan. 12/10: continue current management and treatment plan. 12/11: continue current management and treatment plan. 12/12/2024 Increase olanzapine to 10 mg bedtime continue ECT is psychosis not improved consider clozapine 12/13/2024 Monitor response to ECT and increase olanzapine consider clozapine patient fearful of losing her 12/15/2024 Consider Clozaril trial increase Rexulti increase Trintellix 12/16: Continue current regimen and plans. 12/17: Continue current regimen and plans 12/18/24 Cont olanzapine restart namenda may help with energy mood cognition 12/19/2024 Patient more alert [place] affect seems much more like her self. Pleasant when seen not overly internally preoccupied or paranoid discharge planning meeting tomorrow. Namenda was restarted Reason for continued inpatient stay Substantial Risk for: inability to function, rapid decompensation and med/psych decompensation Time Spent With Patient Time: Total time managing care of this patient today ____ minutes.
[2024-12-20 09:00] VITALS: BP 144/65; PULSE 77; RESP 18; TEMP 36.9; O2SAT 95
[2024-12-20 09:19] VITALS: BP 144/65
[2024-12-20] MEDS: Brexpiprazole 1 MG TABLET PO (09:19)
[2024-12-20] MEDS: Vortioxetine Hydrobromide 10 MG TABLET PO (09:19)
[2024-12-20] MEDS: Memantine HCl 5 MG TABLET PO (09:19)
[2024-12-20] MEDS: amLODIPine Besylate 5 MG TABLET PO (09:19)
[2024-12-20] MEDS: Aspirin Enteric Coated 81 MG TABLET.DR PO (09:20)
[2024-12-20 12:07] LABS: MANUAL DIFF FLAG NO
[2024-12-20 12:12] LABS: Basophils Percent Auto 0.4 % (0-2); Eosinophils Absolute Auto 0.1 X10*3/uL (0.0-0.4); Eosinophils Percent Auto 1.1 % (0-4); Hematocrit 38.3 % (37.0-47.0); Hemoglobin 12.9 g/dl (12.0-16.0); Imm Gran Abs Auto 0.02 X10*3/uL (0.00-0.03); Imm Gran Pct Auto 0.2 % (0.0-0.4); Lymphocytes Absolute Auto 1.5 X10*3/uL (1.2-4.9); Lymphocytes Percent Auto 17.9 % (20-40); Mean Corpuscular HGB Conc 33.7 g/dl (31.0-35.0); Mean Corpuscular Hemoglobin 30.9 pg (27.0-33.0); Mean Corpuscular Volume 91.8 fL (80.0-98.0); Mean Platelet Volume 10.6 fL (9.4-12.3); Monocytes Absolute Auto 0.6 X10*3/uL (0.1-1.2); Monocytes Percent Auto 7.2 % (2-11); Neutrophils Percent Auto 73.2 % (45-73); Platelet Count 239 X10*3/uL (160-400); Red Blood Count 4.17 X10*6/uL (4.20-5.50); Red Cell Distribution Width 13.3 % (11.0-16.0); White Blood Count 8.1 X10*3/uL (4.8-10.8)
[2024-12-20 12:35] LABS: Alanine Aminotransferase 24 U/L (0-31); Albumin Level 3.9 g/dL (3.5-5.0); Anion Gap 13 (12-20); Aspartate Amino Transferase 34 U/L (5-31); Bilirubin Total 0.4 mg/dL (0.0-1.0); Blood Urea Nitrogen 19 mg/dL (9-16); Calcium 9.2 mg/dL (8.4-10.2); Carbon Dioxide 28 mmol/L (22-29); Chloride 110 mmol/L (96-108); Creatinine Clr Calc Pharmacy 29.8; Estimated Glomerular Filt Rate 43; Glucose Random 107 mg/dL (60-115); Potassium 4.1 mmol/L (3.3-5.1); Sodium 147 mmol/L (135-145); Total Protein 6.1 g/dL (6.5-8.0)
[2024-12-20 13:05] LABS: Alkaline Phosphatase 68 U/L (39-117)
--- NOTE | 2024-12-20 13:42 | PC.NURSE ---
Addendum entered by Sarah Shipley RN 12/20/24 15:04: K+ was higher but WNL, Chloride was also elevated above normal limits. Original Note: Patient with elevated Na, K and CR on today's labs. Dr Chambers notified via [place] text.
[2024-12-20 15:09] VITALS: BMI 23.0
[2024-12-20 20:00] VITALS: BP 128/63; PULSE 72; RESP 18; TEMP 36.8; O2SAT 95
[2024-12-20] MEDS: Sennosides 8.6 MG TABLET PO (20:34)
[2024-12-20] MEDS: Docusate Sodium 100 MG CAPSULE PO (20:34)
[2024-12-20] MEDS: OLANZapine 10 MG TABLET PO (20:34)
[2024-12-20] MEDS: Atorvastatin Calcium 10 MG TABLET PO (20:34)
--- NOTE | 2024-12-20 22:40 | HO.PSYCHPN ---
Subjective Subjective Date of Service: 12/20/24 Reason For Visit: severe depression psychosis si Subjective Notes: Conditional Voluntary Interim History: Patient seen psychiatric follow-upPatient's mood has been good no gross paranoia much [place] motion has been social engaged ambulating well tolerating current regimen Mental Status Exam Mental Status Exam Narrative: Mental Status Exam Narrative: Appearance: Casually dressed Behavior: Superficially cooperative psychomotor: Some retardation Speech: Slowed Thought proccess linear and goal directed Thought content: Focused on feeling better able to relate past distorted thinking but attached and appears this was she is able to state it was part of episode Mood: Feeling ok Affect: Appropriate to mood SI:denies HI:denies VH/AH:none no overt delusions Insight/judgment: Much improved Memory/cog: Improving Diagnostics Vital Signs (24Hr): Vital Signs - 24 hr 12/20/24 09:00 12/20/24 09:19 12/20/24 20:00 Temperature 98.4 F 98.2 F Pulse Rate 77 72 Respiratory Rate 18 18 Blood Pressure 144/65 H 144/65 H 128/63 Pulse Oximetry 95 95 Oxygen Delivery Method Room Air Room Air BMI result Body Mass Index 23.0 Labs 12/20/24 12:00 12/20/24 12:00 Labs: Laboratory Results - last 48 hr 12/20/24 12:00 WBC 8.1 RBC 4.17 L Hgb 12.9 Hct 38.3 MCV 91.8 MCH 30.9 MCHC 33.7 RDW 13.3 Plt Count 239 MPV 10.6 Immature Gran % (Auto) 0.2 Neut % (Auto) 73.2 H Lymph % (Auto) 17.9 L Mclean % (Auto) 7.2 Eos % (Auto) 1.1 Baso % (Auto) 0.4 Lymph # (Auto) 1.5 Mclean # (Auto) 0.6 Eos # (Auto) 0.1 Baso # (Auto) 0.0 Abs Immat Gran (auto) 0.02 Absolute Neuts (auto) 6.0 Absolute Nucleated RBC 0.000 Nucleated RBC % (auto) 0.0 Sodium 147 H Potassium 4.1 Chloride 110 H Carbon Dioxide 28 Anion Gap 13 BUN 19 H Creatinine 1.20 Estim Creat Clear Calc 29.8 Estimated GFR 43 Random Glucose 107 Calcium 9.2 Total Bilirubin 0.4 AST 34 H ALT 24 Alkaline Phosphatase 68 Total Protein 6.1 L Albumin 3.9 Medications Medications Current Medications Acetaminophen (Acetaminophen 325 Mg Tablet) 650 mg PO Q6H PRN PRN Reason: Headache/Pain, Scale 1-10 Al Hydroxide/Mg Hydroxide (Magnesium Hydrox/Alum Hydrox 30 Ml Oral.Susp) 30 ml PO Q6H PRN PRN Reason: Heartburn/Nausea Amlodipine Besylate (Amlodipine Besylate 5 Mg Tablet) 5 mg PO DAILY [facility]; Protocol Last Admin: 12/20/24 09:19 Dose: 5 mg Aspirin (Aspirin Enteric Coated 81 Mg Tablet.Dr) 81 mg PO DAILY [facility] Last Admin: 12/20/24 09:20 Dose: 81 mg Atorvastatin Calcium (Atorvastatin Calcium 10 Mg Tablet) 10 mg PO BEDTIME [facility] Last Admin: 12/20/24 20:34 Dose: 10 mg Brexpiprazole (Brexpiprazole 1 Mg Tablet) 1 mg PO DAILY [facility] Last Admin: 12/20/24 09:19 Dose: 1 mg Docusate Sodium (Docusate Sodium 100 Mg Capsule) 100 mg PO BEDTIME [facility] Last Admin: 12/20/24 20:34 Dose: 100 mg Lorazepam (Lorazepam 0.5 Mg Tablet) 0.5 mg PO Q4H PRN PRN Reason: Anxiety Last Admin: 12/03/24 15:26 Dose: 0.5 mg Magnesium Hydroxide (Milk Of Magnesia 30 Ml Oral.Susp) 30 ml PO DAILY PRN PRN Reason: Constipation Memantine (Memantine Hcl 5 Mg Tablet) 5 mg PO DAILY [facility] Last Admin: 12/20/24 09:19 Dose: 5 mg Olanzapine (Olanzapine 10 Mg Tablet) 10 mg PO BEDTIME [facility] Last Admin: 12/20/24 20:34 Dose: 10 mg Senna (Sennosides 8.6 Mg Tablet) 8.6 mg PO BEDTIME [facility] Last Admin: 12/20/24 20:34 Dose: 8.6 mg Trazodone HCl (Trazodone Hcl 50 Mg Tablet) 50 mg PO BEDTIME MRX1 PRN PRN Reason: Insomnia Last Admin: 12/16/24 19:55 Dose: 50 mg Vortioxetine (Vortioxetine Hydrobromide 10 Mg Tablet) 10 mg PO DAILY [facility] Last Admin: 12/20/24 09:19 Dose: 10 mg Allergies Allergies Allergy/AdvReac Type Severity Reaction Status Date / Time No Known Allergies Allergy Verified 11/20/24 06:27 [No Known Allergies*] Assessment & Plan Assessment & Plan (1) Major depressive disorder, recurrent, severe with psychotic features: Status: Acute Code(s): F33.3 - Major depressive disorder, recurrent, severe with psychotic symptoms (2) HLD (hyperlipidemia): Status: Acute Code(s): E78.5 - Hyperlipidemia, unspecified Plan Patient is an 83-year-old female with a PMH significant for MDD, OCD, and history of left ankle fracture with ORIF who was admitted to [facility] with increased depression, decreased appetite, and medication noncompliance. 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 OP f/u with Dr. Hensley. Hypertension/Prediabetes/HLD Blood pressures have been stable Continue on amlodipine daily Patient taking a daily aspirin Labs reviewed 11/10/2024, no anemia, renal function stable Hemoglobin A1c 5.5. Encouraged activity Noted to have elevated cholesterol, total cholesterol 265, LDL 154, HDL 98 Will start low-dose atorvastatin 10 mg daily 11/2024 Patient clearly less depressed but remains suspicious of others with paranoid concerns idiosyncratic behavior caring certain wound and clothing 12/06/24 monitor response to ect consider change to cloz if remains psychitic 12/07/2024 cont ect some improvement noted still with pschosis hcp has been invoked 12/08/24 Patient less depressed but remains psychotic seems be responding either to ECT or Rexulti. Continues on Trintellix remains psychotic continue ECT 12/09: continue current management and treatment plan. 12/10: continue current management and treatment plan. 12/11: continue current management and treatment plan. 12/12/2024 Increase olanzapine to 10 mg bedtime continue ECT is psychosis not improved consider clozapine 12/13/2024 Monitor response to ECT and increase olanzapine consider clozapine patient fearful of losing her 12/14/2024 Continue olanzapine Trintellix Rexulti. Unclear if need both Rexulti and olanzapine continue ECT monitor for improving depression improving paranoia 12/21/2024 Patient appears to be at baseline will try to change to maintenance ECT continue Trintellix olanzapine Rexulti Patient educated on: diagnosis Informed Consent: further education needed Reason for continued inpatient stay Substantial Risk for: inability to function and rapid decompensation Time Spent With Patient Time: Total time managing care of this patient today ____ minutes.
[2024-12-21 08:00] VITALS: BP 115/60; PULSE 77; RESP 14; TEMP 36.8; O2SAT 96
[2024-12-21] MEDS: Memantine HCl 5 MG TABLET PO (08:30)
[2024-12-21] MEDS: Brexpiprazole 1 MG TABLET PO (08:30)
[2024-12-21] MEDS: Aspirin Enteric Coated 81 MG TABLET.DR PO (08:30)
[2024-12-21] MEDS: amLODIPine Besylate 5 MG TABLET PO (08:30)
[2024-12-21] MEDS: Vortioxetine Hydrobromide 10 MG TABLET PO (08:30)
[2024-12-21 13:56] VITALS: BMI 22.9
[2024-12-21 19:44] VITALS: BP 131/61; PULSE 70; TEMP 36.3; O2SAT 93
[2024-12-21] MEDS: Atorvastatin Calcium 10 MG TABLET PO (20:38)
[2024-12-21] MEDS: Docusate Sodium 100 MG CAPSULE PO (20:38)
[2024-12-21] MEDS: OLANZapine 10 MG TABLET PO (20:38)
[2024-12-21] MEDS: Sennosides 8.6 MG TABLET PO (20:38)
[2024-12-22 05:38] VITALS: BP 148/74; PULSE 60; RESP 18; TEMP 36.1; O2SAT 97
[2024-12-22] MEDS: amLODIPine Besylate 5 MG TABLET PO (05:50)
[2024-12-22 05:53] VITALS: BP 148/74; PULSE 60; RESP 18; TEMP 36.1; O2SAT 97
[2024-12-22 08:00] VITALS: BP 130/60; PULSE 73; RESP 18; TEMP 36.9; O2SAT 96
[2024-12-22] MEDS: Aspirin Enteric Coated 81 MG TABLET.DR PO (08:35)
[2024-12-22] MEDS: Brexpiprazole 1 MG TABLET PO (08:36)
[2024-12-22] MEDS: Memantine HCl 5 MG TABLET PO (08:36)
[2024-12-22] MEDS: Vortioxetine Hydrobromide 10 MG TABLET PO (08:36)
[2024-12-22 20:00] VITALS: BP 157/67; PULSE 72; RESP 17; TEMP 36.8; O2SAT 97
[2024-12-22] MEDS: Sennosides 8.6 MG TABLET PO (20:57)
[2024-12-22] MEDS: OLANZapine 10 MG TABLET PO (20:57)
[2024-12-22] MEDS: Docusate Sodium 100 MG CAPSULE PO (20:57)
[2024-12-22] MEDS: Atorvastatin Calcium 10 MG TABLET PO (20:57)
[2024-12-22] MEDS: traZODone HCL 50 MG TABLET PO (22:07)
--- NOTE | 2024-12-22 22:39 | HO.PSYCHPN ---
Subjective Subjective Date of Service: 12/21/24 Reason For Visit: severe depression psychosis si Healthcare Proxy: Yes Interim History: Patient seen psychiatric follow-up. Patient pleasant future oriented clear sensorium cooperative with food fluids socializing sleep and appetite okay has not had noted psychosis Mental Status Exam Mental Status Exam Narrative: Mental Status Exam Narrative: Appearance: Casually dressed Behavior: Superficially cooperative psychomotor: Normal Speech: Clear Thought proccess linear and goal directed Thought content: Pleasant future oriented Mood: Feeling ok Affect: Appropriate to mood SI:denies HI:denies VH/AH:none no overt delusions Insight/judgment: Much improved Memory/cog: Improving Diagnostics Vital Signs (24Hr): Vital Signs - 24 hr 12/22/24 05:38 12/22/24 05:53 12/22/24 08:00 Temperature 97 F 97 F 98.4 F Pulse Rate 60 60 73 Respiratory Rate 18 18 18 Blood Pressure 148/74 H 148/74 H 130/60 Pulse Oximetry 97 97 96 Oxygen Delivery Method Room Air Room Air BMI result Body Mass Index 22.9 Labs 12/20/24 12:00 12/20/24 12:00 Medications Medications Current Medications Acetaminophen (Acetaminophen 325 Mg Tablet) 650 mg PO Q6H PRN PRN Reason: Headache/Pain, Scale 1-10 Al Hydroxide/Mg Hydroxide (Magnesium Hydrox/Alum Hydrox 30 Ml Oral.Susp) 30 ml PO Q6H PRN PRN Reason: Heartburn/Nausea Amlodipine Besylate (Amlodipine Besylate 5 Mg Tablet) 5 mg PO DAILY [facility]; Protocol Last Admin: 12/22/24 05:50 Dose: 5 mg Aspirin (Aspirin Enteric Coated 81 Mg Tablet.) 81 mg PO DAILY [facility] Last Admin: 12/22/24 08:35 Dose: 81 mg Atorvastatin Calcium (Atorvastatin Calcium 10 Mg Tablet) 10 mg PO BEDTIME [facility] Last Admin: 12/22/24 20:57 Dose: 10 mg Brexpiprazole (Brexpiprazole 1 Mg Tablet) 1 mg PO DAILY [facility] Last Admin: 12/22/24 08:36 Dose: 1 mg Docusate Sodium (Docusate Sodium 100 Mg Capsule) 100 mg PO BEDTIME [facility] Last Admin: 12/22/24 20:57 Dose: 100 mg Lorazepam (Lorazepam 0.5 Mg Tablet) 0.5 mg PO Q4H PRN PRN Reason: Anxiety Last Admin: 12/03/24 15:26 Dose: 0.5 mg Magnesium Hydroxide (Milk Of Magnesia 30 Ml Oral.Susp) 30 ml PO DAILY PRN PRN Reason: Constipation Memantine (Memantine Hcl 5 Mg Tablet) 5 mg PO DAILY [facility] Last Admin: 12/22/24 08:36 Dose: 5 mg Olanzapine (Olanzapine 10 Mg Tablet) 10 mg PO BEDTIME [facility] Last Admin: 12/22/24 20:57 Dose: 10 mg Senna (Sennosides 8.6 Mg Tablet) 8.6 mg PO BEDTIME [facility] Last Admin: 12/22/24 20:57 Dose: 8.6 mg Trazodone HCl (Trazodone Hcl 50 Mg Tablet) 50 mg PO BEDTIME MRX1 PRN PRN Reason: Insomnia Last Admin: 12/22/24 22:07 Dose: 50 mg Vortioxetine (Vortioxetine Hydrobromide 10 Mg Tablet) 10 mg PO DAILY [facility] Last Admin: 12/22/24 08:36 Dose: 10 mg Allergies Allergies Allergy/AdvReac Type Severity Reaction Status Date / Time No Known Allergies Allergy Verified 11/20/24 06:27 [No Known Allergies*] Assessment & Plan Assessment & Plan (1) Major depressive disorder, recurrent, severe with psychotic features: Status: Acute Code(s): F33.3 - Major depressive disorder, recurrent, severe with psychotic symptoms (2) HLD (hyperlipidemia): Status: Acute Code(s): E78.5 - Hyperlipidemia, unspecified Plan Patient is an 83-year-old female with a PMH significant for MDD, OCD, and history of left ankle fracture with ORIF who was admitted to [facility] with increased depression, decreased appetite, and medication noncompliance. 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 OP f/u with Dr. Hensley. Hypertension/Prediabetes/HLD Blood pressures have been stable Continue on amlodipine daily Patient taking a daily aspirin Labs reviewed 11/10/2024, no anemia, renal function stable Hemoglobin A1c 5.5. Encouraged activity Noted to have elevated cholesterol, total cholesterol 265, LDL 154, HDL 98 Will start low-dose atorvastatin 10 mg daily 11/2024 Patient clearly less depressed but remains suspicious of others with paranoid concerns idiosyncratic behavior caring certain wound and clothing 12/06/24 monitor response to ect consider change to cloz if remains psychitic 12/07/2024 cont ect some improvement noted still with pschosis hcp has been invoked 12/08/24 Patient less depressed but remains psychotic seems be responding either to ECT or Rexulti. Continues on Trintellix remains psychotic continue ECT 12/09: continue current management and treatment plan. 12/10: continue current management and treatment plan. 12/11: continue current management and treatment plan. 12/12/2024 Increase olanzapine to 10 mg bedtime continue ECT is psychosis not improved consider clozapine 12/13/2024 Monitor response to ECT and increase olanzapine consider clozapine patient fearful of losing her 12/14/2024 Continue olanzapine Trintellix Rexulti. Unclear if need both Rexulti and olanzapine continue ECT monitor for improving depression improving paranoia 12/21/2024 Patient appears to be at baseline will try to change to maintenance ECT continue Trintellix olanzapine Rexulti Continue Trintellix Rexulti olanzapine at HS patient doing well with this 12/22/2024 Patient continues to stabilize agreeable to maintenance treatment with ECT continue Rexulti Trintellix Reason for continued inpatient stay Substantial Risk for: inability to function and rapid decompensation Time Spent With Patient Time: Total time managing care of this patient today ____ minutes.
[2024-12-23 08:00] VITALS: BP 139/71; PULSE 84; RESP 18; TEMP 36.3; O2SAT 95
[2024-12-23] MEDS: amLODIPine Besylate 5 MG TABLET PO (09:10)
[2024-12-23] MEDS: Aspirin Enteric Coated 81 MG TABLET.DR PO (09:10)
[2024-12-23] MEDS: Vortioxetine Hydrobromide 10 MG TABLET PO (09:11)
[2024-12-23] MEDS: Memantine HCl 5 MG TABLET PO (09:11)
[2024-12-23] MEDS: Brexpiprazole 1 MG TABLET PO (09:11)
[2024-12-23 20:00] VITALS: BP 138/60; PULSE 68; RESP 18; TEMP 36.2; O2SAT 96
--- NOTE | 2024-12-23 21:00 | HO.PSYCHPN ---
Subjective Subjective Date of Service: 12/23/24 Reason For Visit: severe depression psychosis si Subjective Notes: Conditional Voluntary Healthcare Proxy: Yes Interim History: Patient seen psychiatric follow-up patient continues to be future oriented smiling on approach engaged in milieu. Social at times with peers grooming ADLs seem adequate much improved Medication Compliance: Yes Review of Systems Acute medical concerns: No Mental Status Exam Mental Status Exam Narrative: Patient casually dressed pleasant upon approach nice smile good eye contact. Mood described as good affect appropriate to mood content focused on generally feeling better looking forward to going home no gross paranoid content not guarded no SI HI no hallucinations judgment much improved impulse control intact Diagnostics Vital Signs (24Hr): Vital Signs - 24 hr 12/23/24 08:00 Temperature 97.3 F Pulse Rate 84 Respiratory Rate 18 Blood Pressure 139/71 Pulse Oximetry 95 Oxygen Delivery Method Room Air BMI result Body Mass Index 22.9 Labs 12/20/24 12:00 12/20/24 12:00 Medications Medications Current Medications Acetaminophen (Acetaminophen 325 Mg Tablet) 650 mg PO Q6H PRN PRN Reason: Headache/Pain, Scale 1-10 Al Hydroxide/Mg Hydroxide (Magnesium Hydrox/Alum Hydrox 30 Ml Oral.Susp) 30 ml PO Q6H PRN PRN Reason: Heartburn/Nausea Amlodipine Besylate (Amlodipine Besylate 5 Mg Tablet) 5 mg PO DAILY [facility]; Protocol Last Admin: 12/23/24 09:10 Dose: 5 mg Aspirin (Aspirin Enteric Coated 81 Mg Tablet.Dr) 81 mg PO DAILY [facility] Last Admin: 12/23/24 09:10 Dose: 81 mg Atorvastatin Calcium (Atorvastatin Calcium 10 Mg Tablet) 10 mg PO BEDTIME [facility] Last Admin: 12/22/24 20:57 Dose: 10 mg Brexpiprazole (Brexpiprazole 1 Mg Tablet) 1 mg PO DAILY [facility] Last Admin: 12/23/24 09:11 Dose: 1 mg Docusate Sodium (Docusate Sodium 100 Mg Capsule) 100 mg PO BEDTIME [facility] Last Admin: 12/22/24 20:57 Dose: 100 mg Lorazepam (Lorazepam 0.5 Mg Tablet) 0.5 mg PO Q4H PRN PRN Reason: Anxiety Last Admin: 12/03/24 15:26 Dose: 0.5 mg Magnesium Hydroxide (Milk Of Magnesia 30 Ml Oral.Susp) 30 ml PO DAILY PRN PRN Reason: Constipation Memantine (Memantine Hcl 5 Mg Tablet) 5 mg PO DAILY [facility] Last Admin: 12/23/24 09:11 Dose: 5 mg Olanzapine (Olanzapine 10 Mg Tablet) 10 mg PO BEDTIME [facility] Last Admin: 12/22/24 20:57 Dose: 10 mg Senna (Sennosides 8.6 Mg Tablet) 8.6 mg PO BEDTIME [facility] Last Admin: 12/22/24 20:57 Dose: 8.6 mg Trazodone HCl (Trazodone Hcl 50 Mg Tablet) 50 mg PO BEDTIME MRX1 PRN PRN Reason: Insomnia Last Admin: 12/22/24 22:07 Dose: 50 mg Vortioxetine (Vortioxetine Hydrobromide 10 Mg Tablet) 10 mg PO DAILY [facility] Last Admin: 12/23/24 09:11 Dose: 10 mg Allergies Allergies Allergy/AdvReac Type Severity Reaction Status Date / Time No Known Allergies Allergy Verified 11/20/24 06:27 [No Known Allergies*] Assessment & Plan Assessment & Plan (1) Major depressive disorder, recurrent, severe with psychotic features: Status: Acute Code(s): F33.3 - Major depressive disorder, recurrent, severe with psychotic symptoms (2) HLD (hyperlipidemia): Status: Acute Code(s): E78.5 - Hyperlipidemia, unspecified Plan Patient is an 83-year-old female with a PMH significant for MDD, OCD, and history of left ankle fracture with ORIF who was admitted to [facility] with increased depression, decreased appetite, and medication noncompliance. 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 OP f/u with Dr. Hensley. Hypertension/Prediabetes/HLD Blood pressures have been stable Continue on amlodipine daily Patient taking a daily aspirin Labs reviewed 11/10/2024, no anemia, renal function stable Hemoglobin A1c 5.5. Encouraged activity Noted to have elevated cholesterol, total cholesterol 265, LDL 154, HDL 98 Will start low-dose atorvastatin 10 mg daily 11/2024 Patient clearly less depressed but remains suspicious of others with paranoid concerns idiosyncratic behavior caring certain wound and clothing 12/06/24 monitor response to ect consider change to cloz if remains psychitic 12/07/2024 cont ect some improvement noted still with pschosis hcp has been invoked 12/08/24 Patient less depressed but remains psychotic seems be responding either to ECT or Rexulti. Continues on Trintellix remains psychotic continue ECT 12/09: continue current management and treatment plan. 12/10: continue current management and treatment plan. 12/11: continue current management and treatment plan. 12/12/2024 Increase olanzapine to 10 mg bedtime continue ECT is psychosis not improved consider clozapine 12/13/2024 Monitor response to ECT and increase olanzapine consider clozapine patient fearful of losing her 12/14/2024 Continue olanzapine Trintellix Rexulti. Unclear if need both Rexulti and olanzapine continue ECT monitor for improving depression improving paranoia 12/21/2024 Patient appears to be at baseline will try to change to maintenance ECT continue Trintellix olanzapine Rexulti Continue Trintellix Rexulti olanzapine at HS patient doing well with this 12/22/2024 Patient continues to stabilize agreeable to maintenance treatment with ECT continue Rexulti Trintellix 12/23/2024 Continue Trintellix Rexulti ECT scheduled for maintenance setting up follow-up supports will see Dr. Butler will also have help in assisted living discharge 12/25/2024 ECT arranged for 611 and 12/2024 Reason for continued inpatient stay Substantial Risk for: inability to function and rapid decompensation Time Spent With Patient Time: Total time managing care of this patient today ____ minutes.
[2024-12-23] MEDS: OLANZapine 10 MG TABLET PO (21:05)
[2024-12-23] MEDS: Atorvastatin Calcium 10 MG TABLET PO (21:05)
[2024-12-23] MEDS: Docusate Sodium 100 MG CAPSULE PO (21:05)
[2024-12-23] MEDS: Sennosides 8.6 MG TABLET PO (21:05)
[2024-12-24 07:51] VITALS: BP 127/59; PULSE 62; RESP 16; TEMP 37.1; O2SAT 95
[2024-12-24] MEDS: Aspirin Enteric Coated 81 MG TABLET.DR PO (08:54)
[2024-12-24] MEDS: Vortioxetine Hydrobromide 10 MG TABLET PO (08:54)
[2024-12-24] MEDS: amLODIPine Besylate 5 MG TABLET PO (08:54)
[2024-12-24] MEDS: Memantine HCl 5 MG TABLET PO (08:55)
[2024-12-24] MEDS: Brexpiprazole 1 MG TABLET PO (08:55)
[2024-12-24 13:00] VITALS: BMI 18.4
[2024-12-24 20:00] VITALS: BP 122/87; PULSE 68; TEMP 36.2; O2SAT 94
[2024-12-24] MEDS: traZODone HCL 50 MG TABLET PO (20:37)
[2024-12-24] MEDS: Atorvastatin Calcium 10 MG TABLET PO (20:37)
[2024-12-24] MEDS: OLANZapine 10 MG TABLET PO (20:37)
[2024-12-24] MEDS: Sennosides 8.6 MG TABLET PO (20:37)
[2024-12-24] MEDS: Docusate Sodium 100 MG CAPSULE PO (20:37)
--- NOTE | 2024-12-24 22:03 | HO.PSYCHPN ---
Subjective Subjective Date of Service: 12/24/24 Reason For Visit: severe depression psychosis si Interim History: Patient seen psychiatric follow-up. Was seated on edge of her bed in bedroom, trying to wake her roommate. I'm doing well . Reason for being here I guess it was depression...it's gotten better Denies SI never . Eating, sleeping is good . Reports undergoing ECT, still receiving treatments, denies any issues. Feels it is working well . Med complaint denies AE. Denies any AVH. Review of Systems Review of Systems Denies any shortness of breath, chest pain, dizziness, lightheadedness, abdominal pain or discomfort, nausea vomiting or diarrhea. Yes all other systems are reviewed and are negative Mental Status Exam Mental Status Exam Narrative: Mental Status Exam Narrative: Appearance: Casually dressed, purple jacket, groomed Behavior: Superficially cooperative psychomotor: Normal Speech: Clear Thought proccess linear and goal directed Thought content: Pleasant future oriented Mood: Feeling ok Affect: Appropriate to mood SI:denies HI:denies VH/AH:none no overt delusions Insight/judgment: Much improved Memory/cog: Improving Patient Appearance: Disheveled Patient Orientation: Person, Place and Situation Level of Consciousness: Awake and Alert Patient Behavior: Appropriate and Guarded Mood Description: Depressed Affect Description: Blunted Patient Cognition Impaired: No Ability to Follow Directions: Good Speech Pattern: Clear and Delayed Memory Description: Intact, Episodic Impaired and Working Impaired Diagnostics Vital Signs (24Hr): Vital Signs - 24 hr 12/24/24 07:51 12/24/24 20:00 Temperature 98.7 F 97.1 F Pulse Rate 62 68 Respiratory Rate 16 Blood Pressure 127/59 L 122/87 Pulse Oximetry 95 94 Oxygen Delivery Method Room Air Room Air BMI result Body Mass Index 18.4 Labs 12/20/24 12:00 12/20/24 12:00 Medications Medications Current Medications Acetaminophen (Acetaminophen 325 Mg Tablet) 650 mg PO Q6H PRN PRN Reason: Headache/Pain, Scale 1-10 Al Hydroxide/Mg Hydroxide (Magnesium Hydrox/Alum Hydrox 30 Ml Oral.Susp) 30 ml PO Q6H PRN PRN Reason: Heartburn/Nausea Amlodipine Besylate (Amlodipine Besylate 5 Mg Tablet) 5 mg PO DAILY [facility]; Protocol Last Admin: 12/24/24 08:54 Dose: 5 mg Aspirin (Aspirin Enteric Coated 81 Mg Tablet.) 81 mg PO DAILY [facility] Last Admin: 12/24/24 08:54 Dose: 81 mg Atorvastatin Calcium (Atorvastatin Calcium 10 Mg Tablet) 10 mg PO BEDTIME [facility] Last Admin: 12/24/24 20:37 Dose: 10 mg Brexpiprazole (Brexpiprazole 1 Mg Tablet) 1 mg PO DAILY [facility] Last Admin: 12/24/24 08:55 Dose: 1 mg Docusate Sodium (Docusate Sodium 100 Mg Capsule) 100 mg PO BEDTIME [facility] Last Admin: 12/24/24 20:37 Dose: 100 mg Lorazepam (Lorazepam 0.5 Mg Tablet) 0.5 mg PO Q4H PRN PRN Reason: Anxiety Last Admin: 12/03/24 15:26 Dose: 0.5 mg Magnesium Hydroxide (Milk Of Magnesia 30 Ml Oral.Susp) 30 ml PO DAILY PRN PRN Reason: Constipation Memantine (Memantine Hcl 5 Mg Tablet) 5 mg PO DAILY [facility] Last Admin: 12/24/24 08:55 Dose: 5 mg Olanzapine (Olanzapine 10 Mg Tablet) 10 mg PO BEDTIME [facility] Last Admin: 12/24/24 20:37 Dose: 10 mg Senna (Sennosides 8.6 Mg Tablet) 8.6 mg PO BEDTIME [facility] Last Admin: 12/24/24 20:37 Dose: 8.6 mg Trazodone HCl (Trazodone Hcl 50 Mg Tablet) 50 mg PO BEDTIME MRX1 PRN PRN Reason: Insomnia Last Admin: 12/24/24 20:37 Dose: 50 mg Vortioxetine (Vortioxetine Hydrobromide 10 Mg Tablet) 10 mg PO DAILY [facility] Last Admin: 12/24/24 08:54 Dose: 10 mg Allergies Allergies Allergy/AdvReac Type Severity Reaction Status Date / Time No Known Allergies Allergy Verified 11/20/24 06:27 [No Known Allergies*] Assessment & Plan Assessment & Plan (1) Major depressive disorder, recurrent, severe with psychotic features: Status: Acute Code(s): F33.3 - Major depressive disorder, recurrent, severe with psychotic symptoms (2) HLD (hyperlipidemia): Status: Acute Code(s): E78.5 - Hyperlipidemia, unspecified Plan Patient is an 83-year-old female with a PMH significant for MDD, OCD, and history of left ankle fracture with ORIF who was admitted to [facility] with increased depression, decreased appetite, and medication noncompliance. 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 OP f/u with Dr. Hensley. Hypertension/Prediabetes/HLD Blood pressures have been stable Continue on amlodipine daily Patient taking a daily aspirin Labs reviewed 11/10/2024, no anemia, renal function stable Hemoglobin A1c 5.5. Encouraged activity Noted to have elevated cholesterol, total cholesterol 265, LDL 154, HDL 98 Will start low-dose atorvastatin 10 mg daily 11/2024 Patient clearly less depressed but remains suspicious of others with paranoid concerns idiosyncratic behavior caring certain wound and clothing 12/06/24 monitor response to ect consider change to cloz if remains psychitic 12/07/2024 cont ect some improvement noted still with pschosis hcp has been invoked 12/08/24 Patient less depressed but remains psychotic seems be responding either to ECT or Rexulti. Continues on Trintellix remains psychotic continue ECT 12/09: continue current management and treatment plan. 12/10: continue current management and treatment plan. 12/11: continue current management and treatment plan. 12/12/2024 Increase olanzapine to 10 mg bedtime continue ECT is psychosis not improved consider clozapine 12/13/2024 Monitor response to ECT and increase olanzapine consider clozapine patient fearful of losing her 12/14/2024 Continue olanzapine Trintellix Rexulti. Unclear if need both Rexulti and olanzapine continue ECT monitor for improving depression improving paranoia 12/21/2024 Patient appears to be at baseline will try to change to maintenance ECT continue Trintellix olanzapine Rexulti Continue Trintellix Rexulti olanzapine at HS patient doing well with this 12/22/2024 Patient continues to stabilize agreeable to maintenance treatment with ECT continue Rexulti Trintellix 12/24/2024: continue treatment Reason for continued inpatient stay Substantial Risk for: inability to function and rapid decompensation Time Spent With Patient Time: Total time managing care of this patient today ____ minutes.
--- NOTE | 2024-12-24 22:09 | HO.PSYCHPN ---
Subjective Subjective Reason For Visit: severe depression psychosis si Diagnostics Vital Signs (24Hr): Vital Signs - 24 hr 12/24/24 07:51 12/24/24 20:00 Temperature 98.7 F 97.1 F Pulse Rate 62 68 Respiratory Rate 16 Blood Pressure 127/59 L 122/87 Pulse Oximetry 95 94 Oxygen Delivery Method Room Air Room Air BMI result Body Mass Index 18.4 Labs 12/20/24 12:00 12/20/24 12:00 Medications Medications Current Medications Acetaminophen (Acetaminophen 325 Mg Tablet) 650 mg PO Q6H PRN PRN Reason: Headache/Pain, Scale 1-10 Al Hydroxide/Mg Hydroxide (Magnesium Hydrox/Alum Hydrox 30 Ml Oral.Susp) 30 ml PO Q6H PRN PRN Reason: Heartburn/Nausea Amlodipine Besylate (Amlodipine Besylate 5 Mg Tablet) 5 mg PO DAILY [facility]; Protocol Last Admin: 12/24/24 08:54 Dose: 5 mg Aspirin (Aspirin Enteric Coated 81 Mg Tablet.Dr) 81 mg PO DAILY [facility] Last Admin: 12/24/24 08:54 Dose: 81 mg Atorvastatin Calcium (Atorvastatin Calcium 10 Mg Tablet) 10 mg PO BEDTIME [facility] Last Admin: 12/24/24 20:37 Dose: 10 mg Brexpiprazole (Brexpiprazole 1 Mg Tablet) 1 mg PO DAILY [facility] Last Admin: 12/24/24 08:55 Dose: 1 mg Docusate Sodium (Docusate Sodium 100 Mg Capsule) 100 mg PO BEDTIME [facility] Last Admin: 12/24/24 20:37 Dose: 100 mg Lorazepam (Lorazepam 0.5 Mg Tablet) 0.5 mg PO Q4H PRN PRN Reason: Anxiety Last Admin: 12/03/24 15:26 Dose: 0.5 mg Magnesium Hydroxide (Milk Of Magnesia 30 Ml Oral.Susp) 30 ml PO DAILY PRN PRN Reason: Constipation Memantine (Memantine Hcl 5 Mg Tablet) 5 mg PO DAILY [facility] Last Admin: 12/24/24 08:55 Dose: 5 mg Olanzapine (Olanzapine 10 Mg Tablet) 10 mg PO BEDTIME [facility] Last Admin: 12/24/24 20:37 Dose: 10 mg Senna (Sennosides 8.6 Mg Tablet) 8.6 mg PO BEDTIME [facility] Last Admin: 12/24/24 20:37 Dose: 8.6 mg Trazodone HCl (Trazodone Hcl 50 Mg Tablet) 50 mg PO BEDTIME MRX1 PRN PRN Reason: Insomnia Last Admin: 12/24/24 20:37 Dose: 50 mg Vortioxetine (Vortioxetine Hydrobromide 10 Mg Tablet) 10 mg PO DAILY [facility] Last Admin: 12/24/24 08:54 Dose: 10 mg Allergies Allergies Allergy/AdvReac Type Severity Reaction Status Date / Time No Known Allergies Allergy Verified 11/20/24 06:27 [No Known Allergies*] Assessment & Plan Assessment & Plan (1) Major depressive disorder, recurrent, severe with psychotic features: Status: Acute Code(s): F33.3 - Major depressive disorder, recurrent, severe with psychotic symptoms (2) HLD (hyperlipidemia): Status: Acute Code(s): E78.5 - Hyperlipidemia, unspecified Plan Patient is an 83-year-old female with a PMH significant for MDD, OCD, and history of left ankle fracture with ORIF who was admitted to [facility] with increased depression, decreased appetite, and medication noncompliance. 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 OP f/u with Dr. Hensley. Hypertension/Prediabetes/HLD Blood pressures have been stable Continue on amlodipine daily Patient taking a daily aspirin Labs reviewed 11/10/2024, no anemia, renal function stable Hemoglobin A1c 5.5. Encouraged activity Noted to have elevated cholesterol, total cholesterol 265, LDL 154, HDL 98 Will start low-dose atorvastatin 10 mg daily 11/2024 Patient clearly less depressed but remains suspicious of others with paranoid concerns idiosyncratic behavior caring certain wound and clothing 12/06/24 monitor response to ect consider change to cloz if remains psychitic 12/07/2024 cont ect some improvement noted still with pschosis hcp has been invoked 12/08/24 Patient less depressed but remains psychotic seems be responding either to ECT or Rexulti. Continues on Trintellix remains psychotic continue ECT 12/09: continue current management and treatment plan. 12/10: continue current management and treatment plan. 12/11: continue current management and treatment plan. 12/12/2024 Increase olanzapine to 10 mg bedtime continue ECT is psychosis not improved consider clozapine 12/13/2024 Monitor response to ECT and increase olanzapine consider clozapine patient fearful of losing her 12/14/2024 Continue olanzapine Trintellix Rexulti. Unclear if need both Rexulti and olanzapine continue ECT monitor for improving depression improving paranoia 12/21/2024 Patient appears to be at baseline will try to change to maintenance ECT continue Trintellix olanzapine Rexulti Continue Trintellix Rexulti olanzapine at HS patient doing well with this 12/22/2024 Patient continues to stabilize agreeable to maintenance treatment with ECT continue Rexulti Trintellix 12/24/2024: continue treatment Time Spent With Patient Time: Total time managing care of this patient today ____ minutes.
[2024-12-25 08:58] VITALS: BP 103/58; PULSE 78; RESP 16; TEMP 36.7; O2SAT 96
[2024-12-25] MEDS: Aspirin Enteric Coated 81 MG TABLET.DR PO (09:01)
[2024-12-25] MEDS: amLODIPine Besylate 5 MG TABLET PO (09:01)
[2024-12-25] MEDS: Vortioxetine Hydrobromide 10 MG TABLET PO (09:02)
[2024-12-25] MEDS: Memantine HCl 5 MG TABLET PO (09:02)
[2024-12-25] MEDS: Brexpiprazole 1 MG TABLET PO (09:02)
[2024-12-25 09:04] VITALS: BP 124/58; PULSE 71
--- NOTE | 2024-12-25 11:00 | P.DS_ITS ---
DS: Providers Provider Date of Service: 12/25/24 Date of admission: 11/09/24 14:12 Date of discharge: 12/25/24 Primary care physician: Shasta Shell MD Consults: 11/09/24 15:37 Consult to Hospitalist Routine Comment: Consulting Provider: [facility] [place] Hospitalists Reason For Exam: ect eval 11/13/24 20:48 Consult to Neurology Routine Consulting Provider: Calvin Hensley Reason for consultation: f/u from outpt see MRI ? parkinsons dx vs drug induced Has provider been notified: No DS: Diagnosis Discharge Diagnosis (1) Major depressive disorder, recurrent, severe with psychotic features: Status: Acute (2) HLD (hyperlipidemia): Status: Acute DS: Medications Discharge Medications Home Medications: Home Medications ?Medication ?Instructions ?Recorded ?Confirmed acetaminophen 500 mg tablet 500 mg PO TID PRN pain 11/09/24 11/09/24 (Acetaminophen Extra Strength) trazodone 50 mg tablet 50 mg PO BEDTIME 11/09/24 11/09/24 Previous Rx's ?Medication ?Instructions ?Recorded aripiprazole 5 mg tablet (Abilify) 5 mg PO DAILY #30 tabs 06/08/24 aspirin 81 mg tablet,delayed 81 mg PO DAILY #30 tabs 06/08/24 release venlafaxine 150 mg 150 mg PO DAILY #30 caps 06/08/24 capsule,extended release 24 hr brexpiprazole 1 mg tablet (Rexulti) 1 mg PO DAILY #30 tabs 11/29/24 Rexulti 1 mg tablet (brexpiprazole) 1 mg PO DAILY 30 days #30 tabs 12/21/24 amlodipine 5 mg tablet 5 mg PO DAILY 30 days #30 tabs 12/21/24 atorvastatin 10 mg tablet 10 mg PO BEDTIME 30 days #30 tabs 12/21/24 docusate sodium 100 mg capsule 100 mg PO BEDTIME constipation 30 12/21/24 (Colace) days #30 caps memantine 7 mg capsule 7 mg PO DAILY 30 days #30 ea 12/21/24 sprinkle,extended release 24hr olanzapine 10 mg tablet 10 mg PO BEDTIME 30 days #30 tabs 12/21/24 sennosides 8.6 mg tablet (senna) 8.6 mg PO BEDTIME 30 days #0 tabs 12/21/24 vortioxetine 10 mg tablet 10 mg PO DAILY 30 days #30 tabs 12/21/24 (Trintellix) brexpiprazole 1 mg tablet (Rexulti) 1 mg PO DAILY 30 days #30 tabs 12/24/24 Mental Status Exam Mental Status Exam Narrative: Patient casually dressed pleasant upon approach nice smile good eye contact. Mood described as good affect appropriate to mood content focused on generally feeling better looking forward to going home no gross paranoid content not guarded no SI HI no hallucinations judgment much improved impulse control intact alert and oriented much decreased latency of thought and speech Data Data Completed and Pending Completed studies during hospitalization [Text1]: 12/20/24 12:00 WBC 8.1 RBC 4.17 L Hgb 12.9 Hct 38.3 MCV 91.8 MCH 30.9 MCHC 33.7 RDW 13.3 Plt Count 239 MPV 10.6 Immature Gran % (Auto) 0.2 Neut % (Auto) 73.2 H Lymph % (Auto) 17.9 L Clinch % (Auto) 7.2 Eos % (Auto) 1.1 Baso % (Auto) 0.4 Lymph # (Auto) 1.5 Clinch # (Auto) 0.6 Eos # (Auto) 0.1 Baso # (Auto) 0.0 Abs Immat Gran (auto) 0.02 Absolute Neuts (auto) 6.0 Absolute Nucleated RBC 0.000 Nucleated RBC % (auto) 0.0 Sodium 147 H Potassium 4.1 Chloride 110 H Carbon Dioxide 28 Anion Gap 13 BUN 19 H Creatinine 1.20 Estim Creat Clear Calc 29.8 Estimated GFR 43 Random Glucose 107 Calcium 9.2 Total Bilirubin 0.4 AST 34 H ALT 24 Alkaline Phosphatase 68 Total Protein 6.1 L Albumin 3.9 11/08/24 21:45 Urine clean catch - Clean Catch Midstream Urine Culture - Final DS: Summary Hospital Course Hospital Course: Psychiatry Admission Note (In) Signed Patient: Maribell Zayas MR#: [id number] : 1940 Acct:[id number] Age/Sex: 84 / F Loc: HO.PGERI 183-[address]: Kyler Chambers MD cc: Kyler Chambers MD~ HPI Date of Service: 11/10/24 Chief Complaint: severe depression psychosis si Sources of Information: patient interviewed, chart reviewed and crisis/core team assessment reviewed HPI Subjective Notes: Conditional Voluntary Narrative: The patient is an 84-year-old female referred from the emergency room she had brought in by family due to worsening depression thoughts of suicide and increasing psychosis. She had recently reportedly been diagnosed with Parkinson 's by Dr. Hensley and this had the stabilized her. 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 The patient has been on Effexor 150 mg Abilify 5 mg daily which can also cause parkinsonian type symptoms. The patient has had worsening cognitive and there is a history of significant delusional depression that in the past usually required a course of ECT impairment question of vascular dementia. She has had a number of stressors including her her no longer being able to live in independent living at [facility] and her is now in a memory care unit and she is also move to assisted living. Patient over the past 1-2 weeks has been increasingly having guilty ruminations regarding the past Memantine 7 mg had recently been started Past Psychiatric History: Last hospitalization was in the fall of 2023 at [facility] had a course of ECT History of psychiatric hospitalizations history of ECT including maintenance ECT in the past in [place] PATIENT HAS FAILED TRIALS OF FLUOXETINE SERTRALINE AMITRIPTYLINE WELLBUTRIN Medical Evaluation Reviewed: Yes Some degree of hypertension noted no other acute findings ON LICENSE OF [facility] Medical History OCD (obsessive compulsive disorder) Major depressive disorder, recurrent severe without psychotic features S/P ECT (electroconvulsive therapy) Narrative: Questionable history of vascular dementia questionable Parkinson's significant hypertensive history Surgical History No history of previous surgery Family History: GF DEPRESSION SUICIDE Social History: Patient is retired lives with her and Van. 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 Substance History: none Trauma History: none Diagnostics Vital Signs (24Hr): Vital Signs - 24 hr 11/09/24 14:56 11/09/24 15:38 11/09/24 20:00 Temperature 98.3 F 98.2 F 97.2 F Pulse Rate 85 98 90 Respiratory Rate 20 15 17 Blood Pressure 163/84 H 177/88 H 176/84 H Pulse Oximetry 96 95 94 Oxygen Delivery Method Room Air Room Air Room Air 11/10/24 08:00 Temperature 98.1 F Pulse Rate 85 Respiratory Rate 16 Blood Pressure 160/86 H Pulse Oximetry 95 Oxygen Delivery Method Room Air BMI result Body Mass Index 22.4 Labs 11/10/24 07:56 document embedded image 11/10/24 07:56 document embedded image Labs: Laboratory Results - last 48 hr 11/08/24 11/08/24 11/10/24 19:58 21:01 07:56 WBC 9.6 8.9 RBC 4.65 5.14 Hgb 14.2 15.9 Hct 41.4 44.8 MCV 89.0 87.2 MCH 30.5 30.9 MCHC 34.3 35.5 H RDW 13.6 13.2 Plt Count 229 240 MPV 10.1 10.7 Immature Gran % (Auto) 0.2 0.3 Neut % (Auto) 64.3 63.1 Lymph % (Auto) 25.6 27.7 Clinch % (Auto) 8.8 8.0 Eos % (Auto) 0.6 0.6 Baso % (Auto) 0.5 0.3 Lymph # (Auto) 2.5 2.5 Clinch # (Auto) 0.9 0.7 Eos # (Auto) 0.1 0.1 Baso # (Auto) 0.1 0.0 Abs Immat Gran (auto) 0.02 0.03 Absolute Neuts (auto) 6.2 5.6 Absolute Nucleated RBC 0.000 0.000 Nucleated RBC % (auto) 0.0 0.0 Sodium 135 135 Potassium 4.4 4.0 Chloride 99 101 Carbon Dioxide 27 25 Anion Gap 13 13 BUN 19 H 16 Creatinine 0.92 0.78 Estim Creat Clear Calc 38.9 46.0 Estimated GFR 58 > 60 Random Glucose 122 H 87 Estimat Average Glucose 111 Hemoglobin A1c % 5.5 Calcium 9.4 9.3 Magnesium 2.1 Total Bilirubin 0.4 0.8 Direct Bilirubin 0.1 AST 24 25 ALT 26 16 Alkaline Phosphatase 82 69 Total Protein 6.6 6.4 L Albumin 4.3 4.2 Triglycerides 64 Cholesterol 264 H LDL Cholesterol, Calc 154 H HDL Cholesterol 98 Vitamin B12 567 Folate 9.3 TSH 2.75 Urine Color Yellow Urine Appearance Clear Urine pH 5.5 Ur Specific Butler 1.020 Urine Protein Negative Urine Glucose (UA) Negative Urine Ketones Trace Urine Blood Negative Urine Nitrite Negative Ur Leukocyte Esterase Moderate (2+) H Urine RBC 0-2 Urine WBC 21-50 H Ur Squamous Epith Cells 3-5 Urine Bacteria None Seen Hyaline Casts 0-2 Urine Opiates Screen Not Detected Ur Buprenorphine Scrn Not Detected Ur Oxycodone Screen Not Detected Urine Methadone Screen Not Detected Urine Fentanyl Screen Not Detected Ur Barbiturates Screen Not Detected Ur Phencyclidine Scrn Not Detected Ur Amphetamines Screen Not Detected U Benzodiazepines Scrn Not Detected Urine Cocaine Screen Not Detected U Marijuana (THC) Screen Not Detected Ethyl Alcohol < 10 Meds/Allergies Meds Home Medications Medication Instructions Recorded Confirmed Type acetaminophen 500 mg tablet 500 mg PO TID PRN pain 11/09/24 11/09/24 History (Acetaminophen Extra Strength) docusate sodium 100 mg capsule 100 mg PO BEDTIME constipation 11/09/24 11/09/24 History (Colace) memantine 7 mg capsule 7 mg PO DAILY 11/09/24 11/09/24 History sprinkle,extended release 24hr sennosides 8.6 mg tablet (senna) 8.6 mg PO BEDTIME 11/09/24 11/09/24 History trazodone 50 mg tablet 50 mg PO BEDTIME 11/09/24 11/09/24 History Allergies Allergies Allergy/AdvReac Type Severity Reaction Status Date / Time No Known Allergies Allergy Verified 11/08/24 19:51 [No Known Allergies*] Mental Status Exam Mental Status Exam Narrative: Appearance: wearing hospital gown, has a stair Behavior: cooperative Psychomotor: Retardation noted Speech: clear, slow low volume TP: linear thought blocking poverty of content TC: Anxiety focused on delusional material delusional guilt related to past thinking the nurses were actors Mood: Anxious depressed Affect: Constrict SI: Thoughts better off and perhaps deserving to be denies plan or intent HI: none VH/AH: Difficult to elaborate Delusions: none Insight/judgment: Impaired Memory/cog: alert, oriented x 4. Assessment & Plan Assessment & Plan (1) Major depressive disorder, recurrent, severe with psychotic features: Status: Acute Code(s): F33.3 - Major depressive disorder, recurrent, severe with psychotic symptoms (2) Dementia, vascular: Status: Acute Code(s): F01.50 - Vascular dementia, unspecified severity, without behavioral disturbance, psychotic disturbance, mood disturbance, and anxiety (3) Parkinsonism: Status: Acute Code(s): G20.C - Parkinsonism, unspecified Plan Patient seen case also reviewed with and her daughter who is visiting from [place]. Patient has severe recurrent depression with multiple marked recent losses over the past year and worsening cognition. Slowed mentation depressed mood delusional guilt and paranoia concerns that she was given ketamine and somehow the nurses are actors on the other hand she is alert knows year month place president executive functioning impaired denies acute suicidality. Patient will get medical eval pre ECT and will most likely need a course of treatment will try to use ultra brief stimulation Monitor for any active suicidality consider change Abilify Patient educated on: diagnosis, medication risk/benefits, ECT and medical condition Guardian/Caregiver educated on: diagnosis, medication risk/benefits and ECT Informed Consent: further education needed Reason for continued inpatient stay Substantial Risk for: harm to self, inability to function and rapid decompensation Statement Statement: I have reviewed the history and physical and performed a pertinent examination on my patient. No changes have occurred unless specified. If the History and Physical was not performed prior to admission, the Hospitalist's service will be consulted for completing the admission physical. Time Spent With Patient Time: Total time managing care of this patient today ____ minutes. Dictated By: Kyler Chambers MD Signed By: <Electronically signed by Kyler Chambers MD> 11/10/24 1402 DD/ 1329 TD/TT: 11/10/24 1329 HOSPITAL COURSE [facility] secondary to severe depression with psychotic features. The patient had a great deal fear thought blocking lack of trust in the environment around her felt the patient's and some of the nurses were actors and that she was being tested. She had significant difficulty with concentration attention processing information thought blocking and slowed mentation. She did have some degree of EPS was seen by Neurology who felt that most likely she was having parkinsonism Abilify was discontinued. Olanzapine was started for psychosis and agitation. Effexor was tapered and discontinued because of breakthrough lack of efficacy. 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 Because of the patient's history of treatment resistant depression with response to ECT she was started on a course of ECT unilaterally with 1st treatment On 11/13 and her last treatment on December 18 having had a total of 11 treatments. Her last treatment was unilateral with 0.5 pulse width program and treated with etomidate and succinylcholine. Patient was treated in a 2 time a week schedule for most of the hospitalization in order to limit further cognitive impairment. What has been noted over the past years the patient has had a significant change in memory attention and executive functioning. Her had moved to locked assisted living in the patient herself was assisted living with support. She had had delusional guilt in the past but most of her psychotic symptoms had been paranoid suspiciousness feeling somehow that she was being messed with. Eventually the patient stabilized and showed a much [place] range of affect she was more alert processing information an improved way and for number of days did not exhibit any delusional or depressive symptoms. Healthcare proxy had been invoked during her hospital stay which was her son and family engagement was held on number of different settings with both the patient's son and daughter. Patient's would visit on unit accompanied by staff from assisted living. Patient was also placed on Rexulti which did seem to be helpful for depressive symptoms olanzapine was continued at bedtime with thought for eventual taper. Patient is scheduled for outpatient ECT on December 27 and January 05. Is unclear at this time what course of maintenance treatment she will require eventually hoping to go back to once a month schedule with possible case has been reviewed also with Dr. Butler her outpatient psychiatrist Status at Discharge Cognitive/behavioral status at discharge: Patient was aware she was in the hospital did know the year and month she was pleasant cooperative future oriented understood she was going back to assisted living look forward to seeing her Functional status at discharge: independent ambulation Overall status at discharge: patient is progressing back to baseline Time Spent with Patient Time attestation: Total time managing care of this patient today 40____ minutes. Time spent: Greater than 30 minutes Discharge Plan Discharge Anticipated Discharge Date/Time: 12/25/24 00:00 Patient Disposition: Home Health Service Discharge Diagnosis: major depression recurrent severe with psychotic fx dementia dx parkinsonism Referrals: [facility] [Other] - 12/25/24 (Transfer back to [facility] on 12/25/24. ) Elder Care Access: [facility] [Other] - 12/25/24 (Your private nurse will provide visits and coordinate home care with [facility]. Your home care will begin on 12/25.) [facility] Outpatient ECT [Other] - 12/27/24 6:00 am (Your next scheduled ECT session is Wednesday12/27/14. Please arrive at 6am for your appointment. ) Dr Butler [facility] [Other] - 01/05/25 2:30 pm (Your next appointment with Dr Butler is scheduled for 01/05/25 at 2:30pm.) Shasta Shell MD [Primary Care Provider] - 12/28/24 (Dr Shell will follow up with you at [facility] for PCP visit 12/28/24. Fax number: [phone]) Discharge Medications: New Rexulti 1 mg tablet 1 mg PO DAILY Qty: 30 0RF atorvastatin 10 mg Tablet 10 mg PO BEDTIME 30 Days Qty: 30 1RF amlodipine 5 mg Tablet 5 mg PO DAILY 30 Days Qty: 30 1RF Protocol: Hold for SBP< HOLD for SBP < : 90 Rexulti 1 mg Tablet 1 mg PO DAILY 30 Days Qty: 30 1RF olanzapine 10 mg Tablet 10 mg PO BEDTIME 30 Days Qty: 30 1RF Trintellix 10 mg Tablet 10 mg PO DAILY 30 Days Qty: 30 1RF Rexulti 1 mg tablet 1 mg PO DAILY 30 Days Qty: 30 1RF Continued aspirin 81 mg Tablet,Delayed Release (Dr/Ec) 81 mg PO DAILY Qty: 30 0RF acetaminophen [Acetaminophen Extra Strength] 500 mg tablet 500 mg PO TID PRN (Reason: pain) sennosides [senna] 8.6 mg tablet 8.6 mg PO BEDTIME 30 Days Qty: 0 0RF docusate sodium [Colace] 100 mg capsule 100 mg PO BEDTIME 30 Days Qty: 30 1RF memantine 7 mg capsule,sprinkle,ER 24hr 7 mg PO DAILY 30 Days Qty: 30 1RF trazodone 50 mg tablet 50 mg PO BEDTIME Qty: 30 0RF Discontinued venlafaxine 150 mg Capsule,Extended Release 24hr 150 mg PO DAILY Qty: 30 0RF aripiprazole [Abilify] 5 mg Tablet 5 mg PO DAILY Qty: 30 0RF Discharge Orders: Discharge Order (Routine); Ordered 12/25/24 Ordered By: Kyler Chambers Diet: Advance to usual diet Activity on Discharge: As tolerated Stand Alone Forms: Patient Portal Discharge page, Community Support Print Language: Swedish Care Plan Goals: stable mood no paranoia accept support take medication as prescribed Health Concerns: dementia dx parkinsonism htn elevated lipid s Plan of Treatment: ect december 27 and january 05 [facility] Assessment: pleasant future oriented ambulating independently no gross paranoia Discharge Date/Time: 12/25/24 12:48
== END 2024-12-25 12:48 | disposition home health service (06) | DRG 885 ==
LOC: HO.ED 11-09 09:08 → HO.PGERI 11-09 14:37
PROVIDERS: Nurse Practitioner Family; Physician Assistant; Psychiatry & Neurology Psychiatry; Admitting Provider Psychiatry & Neurology Psychiatry; Emergency Provider Emergency Medicine Emergency Medical Services; PCP Internal Medicine; Visit Provider Psychiatry & Neurology Psychiatry
PROC: GZB4ZZZ Other Electroconvulsive Therapy (ICD-10-PCS; CPT 90870; principal; 2024-11-13 08:00)
DX: F33.3 Major depressive disorder, recurrent, severe with psychotic symptoms (principal); E78.5 Hyperlipidemia, unspecified; G20.C Parkinsonism, unspecified; F42.9 Obsessive-compulsive disorder, unspecified; R73.03 Prediabetes; F01.50 Vascular dementia, unspecified severity, without behavioral disturbance, psychotic disturbance, mood disturbance, and anxiety; F02.80 Dementia in other diseases classified elsewhere, unspecified severity, without behavioral disturbance, psychotic disturbance, mood disturbance, and anxiety; Z79.82 Long term (current) use of aspirin; Z79.899 Other long term (current) drug therapy
CPT/HCPCS: 36415; 80048; 80053; 80061; 80076; 80307; 81001; 82607; 82746; 83036; 83735; 84443; 85025; 87086; 90870; 93005; 99285; J0330; J2405; J2704; J7120; S9485

== ENCOUNTER → 2024-11-09 10:09 | Outpatient (BNV) | payer MEDICARE, SELFPAY | PROVIDERS: Admitting Provider Psychiatry & Neurology Psychiatry; Emergency Provider Emergency Medicine Emergency Medical Services; PCP Internal Medicine; Visit Provider Internal Medicine | DX: I51.7 Cardiomegaly (principal) | CPT/HCPCS: 93010 ==

== ENCOUNTER → 2024-11-09 14:12 | Outpatient (BNV) | payer MEDICARE, SELFPAY | PROVIDERS: Admitting Provider Psychiatry & Neurology Psychiatry; Emergency Provider Emergency Medicine Emergency Medical Services; PCP Internal Medicine; Visit Provider Psychiatry & Neurology Psychiatry | DX: F33.2 Major depressive disorder, recurrent severe without psychotic features (principal); F01.50 Vascular dementia, unspecified severity, without behavioral disturbance, psychotic disturbance, mood disturbance, and anxiety; G20.C Parkinsonism, unspecified | CPT/HCPCS: 99231 ==

== ENCOUNTER → 2024-11-09 14:12 | Outpatient (BNV) | payer MEDICARE, SELFPAY | PROVIDERS: Admitting Provider Psychiatry & Neurology Psychiatry; Emergency Provider Emergency Medicine Emergency Medical Services; PCP Internal Medicine; Visit Provider Student in an Organized Health Care Education/Training Program | DX: Z01.818 Encounter for other preprocedural examination (principal) | CPT/HCPCS: 99222 ==

== ENCOUNTER → 2024-11-09 14:12 | Outpatient (BNV) | payer MEDICARE, SELFPAY | PROVIDERS: Admitting Provider Psychiatry & Neurology Psychiatry; Emergency Provider Emergency Medicine Emergency Medical Services; PCP Internal Medicine; Visit Provider Psychiatry & Neurology Psychiatry | DX: F33.3 Major depressive disorder, recurrent, severe with psychotic symptoms (principal); F01.50 Vascular dementia, unspecified severity, without behavioral disturbance, psychotic disturbance, mood disturbance, and anxiety; G20.C Parkinsonism, unspecified | CPT/HCPCS: 90792 ==

== ENCOUNTER → 2024-11-09 14:12 | Outpatient (BNV) | payer MEDICARE, SELFPAY | PROVIDERS: Admitting Provider Psychiatry & Neurology Psychiatry; Emergency Provider Emergency Medicine Emergency Medical Services; PCP Internal Medicine; Visit Provider Psychiatry & Neurology Neurology | DX: F01.50 Vascular dementia, unspecified severity, without behavioral disturbance, psychotic disturbance, mood disturbance, and anxiety (principal); G20.C Parkinsonism, unspecified | CPT/HCPCS: 99222 ==

== ENCOUNTER 2024-12-27 05:52 | Day surgery (SDC) | payer MEDICARE, BC, SELFPAY ==
[2024-12-27] VITALS (8 sets, daily range): BP systolic 119–155; BP diastolic 61–84; PULSE 64–73; RESP 16–18; TEMP 36.2–36.6; O2SAT 93–98; BMI 23.0
--- NOTE | 2024-12-27 07:05 | P.CONAN_ITS ---
HPI - Anesthesia Eval Consult details Narrative: 84 yo female patient for ECT PMFSH Active Problems Active Problems: All Active Problems HLD (hyperlipidemia) (Acute) Pre-op evaluation (Acute) Parkinsonism (Acute) Dementia, vascular (Acute) Major depressive disorder, recurrent, severe with psychotic features (Acute) Depression (Acute) Abnormal finding on EKG (Acute) Major depressive disorder, recurrent severe without psychotic features (Acute) OCD (obsessive compulsive disorder) (Acute) Past Medical History Medical History History of fracture of left ankle OCD (obsessive compulsive disorder) Major depressive disorder, recurrent severe without psychotic features S/P ECT (electroconvulsive therapy) Family History Family History Mother CHF (congestive heart failure) Family history of problems with anesthesia: No Surgical History Surgical History No history of previous surgery History of Problems with Anesthesia: No Social History Social History Household Members: None Housing: Apartment Housing Other:: [facility] community Do you presently have visiting nurse or other home services: Yes ([facility]) Patient Tobacco Use Status: Never used Tobacco e-Cigarette/Vaping Use: Never Used Advance Directives: No Advance Directives Information Provided: Yes service: No Sexual orientation: Straight/Heterosexual Meds Allergies Allergy/AdvReac Type Severity Reaction Status Date / Time No Known Allergies Allergy Verified 11/20/24 06:27 [No Known Allergies*] Home Medications ?Medication ?Instructions ?Recorded ?Confirmed ?Last Taken ?Type acetaminophen 500 mg tablet 500 mg PO TID PRN pain 11/09/24 11/09/24 Unknown History (Acetaminophen Extra Strength) Exam Height,Weight and Vital Signs: Height 5 ft 3 in Weight 130 lb Last Vital Signs Temp 97.2 F 12/27/24 06:26 Pulse 64 12/27/24 06:26 Resp 16 12/27/24 06:26 BP 123/61 12/27/24 06:26 Pulse Ox 96 12/27/24 06:26 O2 Del Method Room Air 12/27/24 06:26 Airway Mallampati Class: III TM Dist: >3cm Neck ROM: Full Loose/Missing/Broken Teeth: No Heart: RRR Lungs: CTA Assessment and Plan Assessment Anesthesia Assessment: Anesthesia Plan Discussed and Chart Reviewed Final Anesthetic Review Family History of Problems with Anesthesia: No History of Problems with Anesthesia: No NPO: No ASA Class: II Patient Risk: Intermediate Procedure Risk: Low Anesthetic Plan Anesthetic Plan: GA Disposition: Standard PACU
--- NOTE | 2024-12-27 07:24 | MHC.SHP ---
Pre-Procedural Eval Section A - 24 Hr Update-Section A only Date of Service: 12/27/24 The patient is an INPATIENT: No Changes since office visit: Yes Patient answered all questions; No Cold of Flu in the past 2 weeks, No New Medical Problems and No Changes in Medication The patient has been examined within 24 hours of the surgical procedure. The History & Physical has been completed within 30 days and I have reviewed it.: Yes Section B - Complete if H&P > 30 days Chief Complaint: depression Allergies: Allergies Allergy/AdvReac Type Severity Reaction Status Date / Time No Known Allergies Allergy Verified 11/20/24 06:27 [No Known Allergies*] Plan I have reviewed the history and physical and performed a pertinent physical examination on my patient. No changes have occurred unless specified. Time Spent With Patient Time: Total time managing care of this patient today ____ minutes.
--- NOTE | 2024-12-27 07:25 | HO.ECTPROC ---
ECT Procedure Note Diagnosis/Treatment Date of Service: 12/27/24 Diagnosis: Major Depressive Disorder Previous ECT Date: 12/15/24 Current Treatment Number: 12 Treatment: Series Interval Clinical Notes: smiling, reporting she is feeling OK glad to be home no medical changes reported. Time: Total time managing care of this patient today ____ minutes. ECT Settings Device: THYMATRON DGx Electrode Placement: Right Unilateral Program/Pulse Width: 0.50 Energy Percent: 100 Seizure Duration By EEG (in seconds): 52 Medications Administration General Anesthetic: Etomidate (14) Muscle Relaxant: Succinylcholine (80) Ancillary Medications Miscillaneous Medications: Propofol (20) Airway Management Airway Management: Bag Mask Ventilation Treatment Recommendations No Changes Recommended: No change Pt Tolerated Procedure w/o Issue: Yes
== END 2024-12-27 09:15 | disposition home or self-care (01) ==
PROVIDERS: PCP Internal Medicine; Visit Provider Psychiatry & Neurology Psychiatry
PROC: (CPT 90870; principal; 2024-12-27 07:30)
DX: F33.2 Major depressive disorder, recurrent severe without psychotic features (principal); F42.9 Obsessive-compulsive disorder, unspecified; Z79.82 Long term (current) use of aspirin; Z79.899 Other long term (current) drug therapy
CPT/HCPCS: 90870; J0330; J1596; J1805; J2704

== ENCOUNTER → 2024-12-27 05:52 | Outpatient (BNV) | payer MEDICARE, BC, SELFPAY | PROVIDERS: PCP Internal Medicine; Visit Provider Psychiatry & Neurology Psychiatry | DX: F33.2 Major depressive disorder, recurrent severe without psychotic features (principal) | CPT/HCPCS: 90870 ==

== ENCOUNTER 2025-01-05 07:53 | Day surgery (SDC) | payer MEDICARE, BC, SELFPAY ==
[2025-01-05] VITALS (7 sets, daily range): BP systolic 124–175; BP diastolic 56–91; PULSE 66–87; RESP 12–17; TEMP 36.6–37.1; O2SAT 96; BMI 23.0
--- NOTE | 2025-01-05 08:26 | HO.ANESPROP2 ---
[facility] Active Problems Active Problems: All Active Problems HLD (hyperlipidemia) (Acute) Parkinsonism (Acute) Dementia, vascular (Acute) Major depressive disorder, recurrent, severe with psychotic features (Acute) Abnormal finding on EKG (Acute) Past Medical History Medical History History of fracture of left ankle OCD (obsessive compulsive disorder) Major depressive disorder, recurrent severe without psychotic features S/P ECT (electroconvulsive therapy) Family History Family History Mother CHF (congestive heart failure) Family history of problems with anesthesia: No Surgical History Surgical History No history of previous surgery History of Problems with Anesthesia: No Social History Social History Household Members: None Housing: Apartment Housing Other:: [facility] community Do you presently have visiting nurse or other home services: Yes ([facility]) Patient Tobacco Use Status: Never used Tobacco e-Cigarette/Vaping Use: Never Used Advance Directives: No Advance Directives Information Provided: Yes service: No Sexual orientation: Straight/Heterosexual Meds Allergies Allergy/AdvReac Type Severity Reaction Status Date / Time No Known Allergies (No Known Allergy Verified 11/20/24 06:27 Allergies*) Home Medications ?Medication ?Instructions ?Recorded ?Confirmed ?Last Taken ?Type acetaminophen 500 mg tablet 500 mg PO TID PRN pain 11/09/24 11/09/24 Unknown History (Acetaminophen Extra Strength) Exam Height,Weight and Vital Signs: Height 5 ft 3 in Weight 59 kg Airway Mallampati Class: II TM Dist: >3cm Neck ROM: Full Heart: rrr Lungs: cta Assessment and Plan Assessment Anesthesia Assessment: Anesthesia Plan Discussed and Chart Reviewed Final Anesthetic Review Family History of Problems with Anesthesia: No History of Problems with Anesthesia: No NPO: Yes ASA Class: III Final Preanesthetic Review: No Changes in Pt Med Stat, Meds/Allgs Chart Reviewed and Consent Obtained/Reviewed Patient Risk: Intermediate Procedure Risk: Intermediate Anesthetic Plan Anesthetic Plan: GA Disposition: Standard PACU
--- NOTE | 2025-01-05 08:52 | MHC.SHP ---
Pre-Procedural Eval Section A - 24 Hr Update-Section A only Date of Service: 01/05/25 Section B - Complete if H&P > 30 days Chief Complaint: Major depressive disorder, recurrent, severe with Details of Present Illness: hx recurrent depression doing well some sedation poist last ect Allergies: Allergies Allergy/AdvReac Type Severity Reaction Status Date / Time No Known Allergies (No Known Allergy Verified 11/20/24 06:27 Allergies*) Review of Systems Sugical H&P ROS: Negative: Constitution, Cardiovascular and Respiratory and Yes, Specify: Neurological (feeling stable no pi) Exam Surgical H&P Exam: Normal: Heart, Normal: Lungs and Normal: Neurological Exam Comment: no gross confusion pleasant no abn movement 131/63 Plan Diagnosis/Plan: Unchanged I have reviewed the history and physical and performed a pertinent physical examination on my patient. No changes have occurred unless specified. Time Spent With Patient Time: Total time managing care of this patient today ____ minutes.
--- NOTE | 2025-01-05 08:54 | HO.ECTPROC ---
ECT Procedure Note Diagnosis/Treatment Date of Service: 01/05/25 Diagnosis: Major Depressive Disorder Previous ECT Date: 12/27/24 Current Treatment Number: 13 Treatment: Series Interval Clinical Notes: smiling, reporting she is feeling OK glad to be home ongoing no medical changes reported.full affect alsert oriented Time: Total time managing care of this patient today ____ minutes. ECT Settings Device: THYMATRON DGx Electrode Placement: Right Unilateral Program/Pulse Width: 0.50 Energy Percent: 100 Seizure Duration By EEG (in seconds): 45 Medications Administration General Anesthetic: Etomidate (14) Muscle Relaxant: Succinylcholine (80) Airway Management Airway Management: Bag Mask Ventilation Treatment Recommendations No Changes Recommended: No change Notes: consider change to .25 program if 0.5 not tolerated Pt Tolerated Procedure w/o Issue: Yes
[2025-01-05] MEDS: Lactated Ringers 1,000 ML 50 ML IVCONT (09:11)
== END 2025-01-05 10:29 | disposition home or self-care (01) ==
PROVIDERS: PCP Internal Medicine; Visit Provider Psychiatry & Neurology Psychiatry
PROC: (CPT 90870; principal; 2025-01-05 09:00)
DX: F33.3 Major depressive disorder, recurrent, severe with psychotic symptoms (principal); F42.9 Obsessive-compulsive disorder, unspecified; F01.50 Vascular dementia, unspecified severity, without behavioral disturbance, psychotic disturbance, mood disturbance, and anxiety; G20.C Parkinsonism, unspecified; E78.5 Hyperlipidemia, unspecified; Z79.82 Long term (current) use of aspirin; Z79.899 Other long term (current) drug therapy
CPT/HCPCS: 90870; J0330; J2704

== ENCOUNTER → 2025-01-05 07:53 | Outpatient (BNV) | payer MEDICARE, BC, SELFPAY | PROVIDERS: PCP Internal Medicine; Visit Provider Psychiatry & Neurology Psychiatry | DX: F32.2 Major depressive disorder, single episode, severe without psychotic features (principal) | CPT/HCPCS: 90870 ==

== ENCOUNTER 2025-01-17 06:06 | Day surgery (SDC) | payer MEDICARE, SELFPAY ==
[2025-01-17] VITALS (7 sets, daily range): BP systolic 137–174; BP diastolic 60–82; PULSE 64–79; RESP 12–20; TEMP 36.3–37.2; O2SAT 94–100; BMI 23.0
[2025-01-17] MEDS: Lactated Ringers 1,000 ML 100 ML IVCONT (07:04)
--- NOTE | 2025-01-17 07:11 | HO.ANESPROP2 ---
[facility] Active Problems Active Problems: All Active Problems (Updated 01/02/25 @ 00:01 by Mandy Flores) HLD (hyperlipidemia) (Acute) Parkinsonism (Acute) Dementia, vascular (Acute) Major depressive disorder, recurrent, severe with psychotic features (Acute) Abnormal finding on EKG (Acute) Past Medical History Medical History Pre-op evaluation History of fracture of left ankle OCD (obsessive compulsive disorder) Major depressive disorder, recurrent severe without psychotic features S/P ECT (electroconvulsive therapy) Functional capacity: independent ambulation Family History Family History Mother CHF (congestive heart failure) Family history of problems with anesthesia: No Surgical History Surgical History No history of previous surgery History of Problems with Anesthesia: No Social History Social History Household Members: None Housing: Apartment Housing Other:: Shelter community Do you presently have visiting nurse or other home services: Yes ([employer] [facility]) Patient Tobacco Use Status: Never used Tobacco e-Cigarette/Vaping Use: Never Used Advance Directives: No Advance Directives Information Provided: Yes service: No Sexual orientation: Straight/Heterosexual Meds Allergies Allergy/AdvReac Type Severity Reaction Status Date / Time No Known Allergies (No Known Allergy Verified 11/20/24 06:27 Allergies*) Active Medications: Current Medications Lactated Ringer's (Lr) 1,000 mls @ 100 mls/hr IVCONT .Q10H DENISSE Last Admin: 01/17/25 07:04 Dose: 100 mls/hr Home Medications ?Medication ?Instructions ?Recorded ?Confirmed ?Last Taken ?Type acetaminophen 500 mg tablet 500 mg PO TID PRN pain 11/09/24 11/09/24 Unknown History (Acetaminophen Extra Strength) Exam Exam Date and Time: 01/17/2025 Height,Weight and Vital Signs: Height 5 ft 3 in Weight 58.967 kg Last Vital Signs Temp 97.3 F 01/17/25 06:24 Pulse 64 01/17/25 06:24 Resp 12 01/17/25 06:24 BP 137/60 01/17/25 06:24 Pulse Ox 97 01/17/25 06:24 O2 Del Method Room Air 01/17/25 06:24 Airway Mallampati Class: II TM Dist: >3cm Neck ROM: Full Heart: rrr Lungs: cta Other: normally oriented Assessment and Plan Final Anesthetic Review Family History of Problems with Anesthesia: No History of Problems with Anesthesia: No ASA Class: III Final Preanesthetic Review: No Changes in Pt Med Stat, Meds/Allgs Chart Reviewed, Consent Obtained/Reviewed and Anes Risks/Benef Reviewed Patient Risk: Low Procedure Risk: Low Anesthetic Plan Anesthetic Plan: GA Disposition: Standard PACU
--- NOTE | 2025-01-17 07:25 | HO.ECTPROC ---
ECT Procedure Note Diagnosis/Treatment Date of Service: 01/17/25 Diagnosis: Major Depressive Disorder Previous ECT Date: 12/27/24 Current Treatment Number: 13 Treatment: Series Interval Clinical Notes: Pt some problems with st memory mood stable doing ok no PI Time: Total time managing care of this patient today ____ minutes. ECT Settings Device: THYMATRON DGx Electrode Placement: Right Unilateral Program/Pulse Width: 0.25 Energy Percent: 75 Seizure Duration By EEG (in seconds): 55 Medications Administration General Anesthetic: Etomidate (14) Muscle Relaxant: Succinylcholine (80) Airway Management Airway Management: Bag Mask Ventilation Treatment Recommendations No Changes Recommended: No change Notes: consider change to .25 program if 0.5 not tolerated Pt Tolerated Procedure w/o Issue: Yes
--- NOTE | 2025-01-17 07:26 | MHC.SHP ---
Pre-Procedural Eval Section A - 24 Hr Update-Section A only Date of Service: 01/17/25 Section B - Complete if H&P > 30 days Chief Complaint: Major depressive disorder, recurrent, severe with Details of Present Illness: hx recurrent depression doing well Present Medications: see Short Stay Collaborative assessment Allergies: Allergies Allergy/AdvReac Type Severity Reaction Status Date / Time No Known Allergies (No Known Allergy Verified 11/20/24 06:27 Allergies*) Review of Systems Sugical H&P ROS: Negative: Constitution, Cardiovascular and Respiratory and Yes, Specify: Neurological (feeling stable no pi poor st memory) Exam Surgical H&P Exam: Normal: Heart, Normal: Lungs and Normal: Neurological (alert oriented knows ec t for dep) Exam Comment: no gross confusion pleasant no abn movement 137/60 Plan Diagnosis/Plan: Unchanged I have reviewed the history and physical and performed a pertinent physical examination on my patient. No changes have occurred unless specified. Time Spent With Patient Time: Total time managing care of this patient today ____ minutes.
== END 2025-01-17 08:59 | disposition home or self-care (01) ==
PROVIDERS: PCP Internal Medicine; Visit Provider Psychiatry & Neurology Psychiatry
PROC: (CPT 90870; principal; 2025-01-17 07:00)
DX: F33.2 Major depressive disorder, recurrent severe without psychotic features (principal); R41.3 Other amnesia; F42.9 Obsessive-compulsive disorder, unspecified; F03.90 Unspecified dementia, unspecified severity, without behavioral disturbance, psychotic disturbance, mood disturbance, and anxiety; G20.C Parkinsonism, unspecified; I10 Essential (primary) hypertension; E78.5 Hyperlipidemia, unspecified; Z79.82 Long term (current) use of aspirin; Z79.899 Other long term (current) drug therapy
CPT/HCPCS: 90870; J0330; J2704

== ENCOUNTER → 2025-01-17 06:06 | Outpatient (BNV) | payer MEDICARE, SELFPAY | PROVIDERS: PCP Internal Medicine; Visit Provider Psychiatry & Neurology Psychiatry | DX: F33.2 Major depressive disorder, recurrent severe without psychotic features (principal) | CPT/HCPCS: 90870 ==

== ENCOUNTER 2025-02-02 07:57 | Day surgery (SDC) | payer MEDICARE, SELFPAY ==
[2025-02-02] VITALS (9 sets, daily range): BP systolic 132–164; BP diastolic 60–90; PULSE 66–76; RESP 12–16; TEMP 36.2–36.7; O2SAT 95–98; BMI 23.6
--- NOTE | 2025-02-02 08:25 | HO.ANESPROP2 ---
[facility] Active Problems Active Problems: All Active Problems HLD (hyperlipidemia) (Acute) Parkinsonism (Acute) Dementia, vascular (Acute) Major depressive disorder, recurrent, severe with psychotic features (Acute) Abnormal finding on EKG (Acute) Past Medical History Medical History Pre-op evaluation History of fracture of left ankle OCD (obsessive compulsive disorder) Major depressive disorder, recurrent severe without psychotic features S/P ECT (electroconvulsive therapy) Family History Family History Mother CHF (congestive heart failure) Family history of problems with anesthesia: No Surgical History Surgical History No history of previous surgery History of Problems with Anesthesia: No Social History Social History Household Members: None Housing: Apartment Housing Other:: Senior Living community Do you presently have visiting nurse or other home services: Yes ([employer] [facility]) Patient Tobacco Use Status: Never used Tobacco e-Cigarette/Vaping Use: Never Used Advance Directives: No Advance Directives Information Provided: Yes service: No Sexual orientation: Straight/Heterosexual Meds Allergies Allergy/AdvReac Type Severity Reaction Status Date / Time No Known Allergies (No Known Allergy Verified 11/20/24 06:27 Allergies*) Active Medications: Current Medications Lactated Ringer's (Lr) 1,000 mls @ 50 mls/hr IVCONT .Q20H DENISSE Home Medications ?Medication ?Instructions ?Recorded ?Confirmed ?Last Taken ?Type acetaminophen 500 mg tablet 500 mg PO TID PRN pain 11/09/24 11/09/24 Unknown History (Acetaminophen Extra Strength) Exam Airway Mallampati Class: II TM Dist: >3cm Neck ROM: Full Heart: rrr Lungs: cta Assessment and Plan Assessment Anesthesia Assessment: Anesthesia Plan Discussed and Chart Reviewed Final Anesthetic Review Family History of Problems with Anesthesia: No History of Problems with Anesthesia: No NPO: Yes ASA Class: III Final Preanesthetic Review: No Changes in Pt Med Stat, Meds/Allgs Chart Reviewed and Consent Obtained/Reviewed Patient Risk: Intermediate Procedure Risk: Intermediate Anesthetic Plan Anesthetic Plan: GA Disposition: Standard PACU
[2025-02-02] MEDS: Lactated Ringers 1,000 ML 50 ML IVCONT (08:39)
--- NOTE | 2025-02-02 08:54 | MHC.SHP ---
Pre-Procedural Eval Section A - 24 Hr Update-Section A only Date of Service: 02/02/25 Section B - Complete if H&P > 30 days Chief Complaint: Major depressive disorder, recurrent, severe with Details of Present Illness: hx recurrent depression doing ok upset over memory disorder changes Present Medications: see Short Stay Collaborative assessment Allergies: Allergies Allergy/AdvReac Type Severity Reaction Status Date / Time No Known Allergies (No Known Allergy Verified 11/20/24 06:27 Allergies*) Review of Systems Sugical H&P ROS: Negative: Constitution, Cardiovascular and Respiratory and Yes, Specify: Neurological (feeling stable no pi poor st memory) and Psychiatric (mild dysphoria) Exam Surgical H&P Exam: Normal: Heart, Normal: Lungs and Normal: Neurological (alert oriented knows ec t for dep) Exam Comment: no gross confusion pleasant no abn movement 137/60 Plan Diagnosis/Plan: Unchanged I have reviewed the history and physical and performed a pertinent physical examination on my patient. No changes have occurred unless specified. Time Spent With Patient Time: Total time managing care of this patient today ____ minutes.
--- NOTE | 2025-02-02 08:56 | HO.ECTPROC ---
ECT Procedure Note Diagnosis/Treatment Date of Service: 02/02/25 Diagnosis: Major Depressive Disorder Previous ECT Date: 01/17/25 Current Treatment Number: 14 Treatment: Series Interval Clinical Notes: Pt has had some inc depressive sx no hallucinations . Will inc to 0.5 pw secondary to inc depression Time: Total time managing care of this patient today _35___ minutes. ECT Settings Device: THYMATRON DGx Electrode Placement: Right Unilateral Program/Pulse Width: 0.50 Energy Percent: 80 Seizure Duration By EEG (in seconds): 68 Medications Administration General Anesthetic: Etomidate (14) Muscle Relaxant: Succinylcholine (80) Airway Management Airway Management: Bag Mask Ventilation Treatment Recommendations No Changes Recommended: No change Notes: consider change to .25 program if 0.5 not tolerated see if has improved mood Pt Tolerated Procedure w/o Issue: Yes
== END 2025-02-02 10:55 | disposition home or self-care (01) ==
PROVIDERS: PCP Internal Medicine; Visit Provider Psychiatry & Neurology Psychiatry
PROC: (CPT 90870; principal; 2025-02-02 09:00)
DX: F33.2 Major depressive disorder, recurrent severe without psychotic features (principal); F42.9 Obsessive-compulsive disorder, unspecified; E78.5 Hyperlipidemia, unspecified; Z79.82 Long term (current) use of aspirin; Z79.899 Other long term (current) drug therapy
CPT/HCPCS: 90870; J0330

== ENCOUNTER → 2025-02-02 07:57 | Outpatient (BNV) | payer MEDICARE, SELFPAY | PROVIDERS: PCP Internal Medicine; Visit Provider Psychiatry & Neurology Psychiatry | DX: F33.2 Major depressive disorder, recurrent severe without psychotic features (principal) | CPT/HCPCS: 90870 ==

== ENCOUNTER 2025-02-26 14:08 | Outpatient (AMB) | payer MEDICARE, SELFPAY ==
--- NOTE | 2025-02-26 14:25 | MHC.OFFVIS ---
Vital Signs 02/26/25 14:28 Height 5 ft 3 in Weight 132 lb BMI 23.4 BP 130/70 Blood Pressure Location Rt brachial Position Sitting Pulse 65 Pulse Source Pulse Oximeter Pulse Oximetry (%) 97 Oxygen Delivery Method Room Air Intake Visit Reasons: E-ROVING CAN TENDER: Parkinson's Intake Note: Follow up MRI done in September and tremors Pediatric Nurse Practitioner Required: No Accompanied by: interior plant caretaker Allergies No Known Allergies (No Known Allergies*) Allergy (Verified 02/26/25 14:31) HPI Comments Details: 84y/o female comes for opinion regarding her diagnosis of parkinsons. she has long h/o depression and has been on multiple meds , antipsychotics and ECT for many years . she is currently on olanzapine. she started noticing tremors R>L UE action tremors, upper body stiffness , difficulty with ADLs,slowness of her activities about 5-6 mths ago . she was seen by and diagnosed with Parkinsons disease. she was admitted at [facility] Psych unit - her medications were adjusted. she was tapered off abilify and is currently on olanzapine,trentillex , rixulti etc.As per her caretakes - her symptoms have decreased since her abilify was tapered and other medication changes were made. However the patient did not try carbidopa/levodopa which was recomended . she wants second opinion on the diagnosis. she is slow, balance is mildly off balance , bradykinetic , decreased facial expression , softer voice etc. No falls she has depression , constipation ( senna helps ), anxiety - mood disorder was diagnosed in her 50s. No REM behavior disorder. she also reports memory issues- she has trouble with remembering conversations recalling names etc.No hallucinations she is on senna to help with constipation.No recent falls she lives in [facility] - her lives in the Memory unit [facility] Medical History Parkinsonism Pre-op evaluation History of fracture of left ankle OCD (obsessive compulsive disorder) Major depressive disorder, recurrent severe without psychotic features S/P ECT (electroconvulsive therapy) Surgical History No history of previous surgery Family History Mother CHF (congestive heart failure) Social History Household Members: None Housing: Apartment Housing Other:: Detention community Do you presently have visiting nurse or other home services: Yes ([employer] [facility]) Patient Tobacco Use Status: Never used Tobacco e-Cigarette/Vaping Use: Never Used service: No Sexual orientation: Straight/Heterosexual Physical Exam Vital Signs: Last Vital Signs Pulse 65 02/26/25 14:28 BP 130/70 02/26/25 14:28 Pulse Ox 97 02/26/25 14:28 Oxygen Delivery Method Room Air 02/26/25 14:28 BMI result Body Mass Index 23.4 Const General: cooperative, healthy appearing, comfortable and no acute distress Nutritional Appearance: average body habitus Orientation/consciousness: patient oriented x3 Eyes Pupils: Equal, round and reactive pupils present Neuro Other: Severely decreased blink and facial expression Hypophonia Tremors - Rest L>R Romulo Cog wheel rigidity R>L Moderately decreased facial expresison and blink FFM Foot taps decreased R>L Gait- mild stoop , decreased arm siwngs , shorter stride and slow . General: patient oriented x3 and no focal motor deficits Cranial nerves: Yes Facial sensation intact/muscles of mastication intact, Yes Equal, round and reactive pupils present, Yes Bilaterally intact EOM present, Yes Nystagmus not present, Yes Normal facial strength present, Yes Midline tongue present and Yes Ability to bilaterally elevate shoulders present Cognition (Neuro): normal cognition Motor exam (neuro): 5/5 motor strength present throughout Deep tendon reflexes (DTR's): Right triceps reflex intensity grade: 3+, Left triceps reflex intensity grade: 3+, Rt Biceps (C5, C6): 3+, Left biceps reflex intensity grade: 3+, Right brachioradialis reflex intensity grade: 3+, Left brachioradialis reflex intensity grade: 3+, Right patellar reflex intensity grade: 3+ and Left patellar reflex intensity grade: 3+ Coordination: [id number] test normal Assessment & Plan Assessment & Plan (1) Parkinsonism: Comment: ? neuroleptic induced Code(s): G20.C - Parkinsonism, unspecified Category: Medical Qualifiers: Parkinsonism type: secondary Parkinsonism Secondary Parkinsonism type: neuroleptic-induced Qualified Code(s): G21.11 - Neuroleptic induced parkinsonism; T43.505A - Adverse effect of unspecified antipsychotics and neuroleptics, initial encounter Plan REviewed MRI brain No clinical evidence of NPH I will schedule her for FABIAN scan for evidence of Idiopathic Parkinsons disease Continue exercise F/u in 4 mths to evaluate fater she is tapered off olanzapine. 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
[2025-02-26 14:28] VITALS: BP 130/70; PULSE 65; O2SAT 97; BMI 23.4
--- OUTSIDE RECORDS SUMMARY | 2025-02-26 14:37 | XMS_ITS | Encounter Summary ---
Author Organization [facility] Address [address] [place] [address] Phone Care Team Providers Care Awning Hanger Helper Name Role Phone Sumaya CaroleShasta lennon Winsome ASHRAF Primary Care Provider Encounter Details Date Type Department Care Team (Late st Contact Info) Description 06/28/2024 Procedure Pass [facility], Ct Scan - [facility] [address] [place] [address] Social History Tobacco Use Types Packs/Day Years [...] on filedocumented in this encounter Care Teams Awning Hanger Helper Relationship Specialty Start Date End Date Shasta Seth MD [address] [place] [phone] [email or web address] PCP - General Internal Medicine 06/22/24 documented as of this encounter Additional Source Comments The information contained in this document represents components of the legal health record. It is not the complete legal health record.[facility]
== END 2025-02-26 15:44 | disposition home or self-care (01) ==
LOC: HO.HSMS 14:09
PROVIDERS: PCP Internal Medicine; Visit Provider Psychiatry & Neurology Neurology
DX: G21.11 Neuroleptic induced parkinsonism (principal); T43.505A Adverse effect of unspecified antipsychotics and neuroleptics, initial encounter
CPT/HCPCS: 99204; G2211

== ENCOUNTER → 2025-02-26 14:08 | Outpatient (BNVA) | payer MEDICARE, SELFPAY | PROVIDERS: PCP Internal Medicine; Visit Provider Psychiatry & Neurology Neurology | DX: G21.11 Neuroleptic induced parkinsonism (principal); T43.505A Adverse effect of unspecified antipsychotics and neuroleptics, initial encounter | CPT/HCPCS: 99202 ==

== ENCOUNTER 2025-03-02 07:55 | Day surgery (SDC) | payer MEDICARE, SELFPAY ==
[2025-03-02] VITALS (7 sets, daily range): BP systolic 131–157; BP diastolic 63–84; PULSE 64–75; RESP 15–18; TEMP 36.5–37; O2SAT 94–100; BMI 23.0
--- NOTE | 2025-03-02 08:28 | HO.ANESPROP2 ---
[facility] Active Problems Active Problems: All Active Problems (Updated 02/26/25 @ 15:42 by Raina Moss MD) Parkinsonism (Acute) HLD (hyperlipidemia) (Acute) Parkinsonism (Acute) Dementia, vascular (Acute) Major depressive disorder, recurrent, severe with psychotic features (Acute) Abnormal finding on EKG (Acute) Past Medical History Medical History Parkinsonism Pre-op evaluation History of fracture of left ankle OCD (obsessive compulsive disorder) Major depressive disorder, recurrent severe without psychotic features S/P ECT (electroconvulsive therapy) Family History Family History Mother CHF (congestive heart failure) Family history of problems with anesthesia: No Surgical History Surgical History No history of previous surgery History of Problems with Anesthesia: No Social History Social History Household Members: None Housing: Apartment Housing Other:: Group Home community Do you presently have visiting nurse or other home services: Yes ([employer] [facility]) Patient Tobacco Use Status: Never used Tobacco e-Cigarette/Vaping Use: Never Used Advance Directives: No Advance Directives Information Provided: Yes service: No Sexual orientation: Straight/Heterosexual Meds Allergies Allergy/AdvReac Type Severity Reaction Status Date / Time No Known Allergies (No Known Allergy Verified 02/26/25 14:31 Allergies*) Home Medications ?Medication ?Instructions ?Recorded ?Confirmed ?Last Taken ?Type acetaminophen 500 mg tablet 500 mg PO TID PRN pain 11/09/24 11/09/24 Unknown History (Acetaminophen Extra Strength) Exam Height,Weight and Vital Signs: Height 5 ft 3 in Weight 58.967 kg Last Vital Signs Temp 97.7 F 03/02/25 08:09 Pulse 64 03/02/25 08:09 Resp 15 03/02/25 08:09 BP 131/68 03/02/25 08:09 Pulse Ox 95 03/02/25 08:09 O2 Del Method Room Air 03/02/25 08:09 Airway Mallampati Class: II TM Dist: >3cm Neck ROM: Full Loose/Missing/Broken Teeth: No Heart: RRR Lungs: CTA Assessment and Plan Assessment Anesthesia Assessment: Anesthesia Plan Discussed and Chart Reviewed Final Anesthetic Review Family History of Problems with Anesthesia: No History of Problems with Anesthesia: No NPO: Yes ASA Class: III Final Preanesthetic Review: Meds/Allgs Chart Reviewed, Consent Obtained/Reviewed and Anes Risks/Benef Reviewed Patient Risk: Intermediate Procedure Risk: Intermediate Anesthetic Plan Anesthetic Plan: GA Disposition: Standard PACU
[2025-03-02] MEDS: Lactated Ringers 1,000 ML 100 ML IVCONT (09:40)
--- NOTE | 2025-03-02 09:49 | MHC.SHP ---
Pre-Procedural Eval Section A - 24 Hr Update-Section A only Date of Service: 03/02/25 The patient is an INPATIENT: No Changes since office visit: Yes Patient answered all questions; No Cold of Flu in the past 2 weeks, No New Medical Problems and No Changes in Medication The patient has been examined within 24 hours of the surgical procedure. The History & Physical has been completed within 30 days and I have reviewed it.: Yes Section B - Complete if H&P > 30 days Chief Complaint: Major depressive disorder, recurrent, severe with Allergies: Allergies Allergy/AdvReac Type Severity Reaction Status Date / Time No Known Allergies (No Known Allergy Verified 02/26/25 14:31 Allergies*) Plan I have reviewed the history and physical and performed a pertinent physical examination on my patient. No changes have occurred unless specified. Time Spent With Patient Time: Total time managing care of this patient today ____ minutes.
--- NOTE | 2025-03-02 09:49 | HO.ECTPROC ---
ECT Procedure Note Diagnosis/Treatment Date of Service: 03/02/25 Diagnosis: Major Depressive Disorder Previous ECT Date: 02/02/25 Current Treatment Number: 14 Treatment: Series Interval Clinical Notes: Pt has some chronic dysphoria no si feels sad re her no psychosis Time: Total time managing care of this patient today ____ minutes. ECT Settings Device: THYMATRON DGx Electrode Placement: Right Unilateral Program/Pulse Width: 0.50 Energy Percent: 50 Seizure Duration By EEG (in seconds): 60 Medications Administration General Anesthetic: Etomidate (14) Muscle Relaxant: Succinylcholine (80) Airway Management Airway Management: Bag Mask Ventilation Treatment Recommendations No Changes Recommended: No change Notes: can dec stimulation dr guerrero feels tx cont to be helpful no psychosis Pt Tolerated Procedure w/o Issue: Yes
== END 2025-03-02 11:19 | disposition home or self-care (01) ==
PROVIDERS: PCP Internal Medicine; Visit Provider Psychiatry & Neurology Psychiatry
PROC: (CPT 90870; principal; 2025-03-02 09:30)
DX: F33.2 Major depressive disorder, recurrent severe without psychotic features (principal); F34.1 Dysthymic disorder; G20.C Parkinsonism, unspecified; I12.9 Hypertensive chronic kidney disease with stage 1 through stage 4 chronic kidney disease, or unspecified chronic kidney disease; N18.30 Chronic kidney disease, stage 3 unspecified; F03.90 Unspecified dementia, unspecified severity, without behavioral disturbance, psychotic disturbance, mood disturbance, and anxiety; E78.5 Hyperlipidemia, unspecified; R60.0 Localized edema; K59.00 Constipation, unspecified; Z79.82 Long term (current) use of aspirin; Z79.899 Other long term (current) drug therapy
CPT/HCPCS: 90870; J0330

== ENCOUNTER → 2025-03-02 07:55 | Outpatient (BNV) | payer MEDICARE, SELFPAY | PROVIDERS: PCP Internal Medicine; Visit Provider Psychiatry & Neurology Psychiatry | DX: F33.2 Major depressive disorder, recurrent severe without psychotic features (principal) | CPT/HCPCS: 90870 ==

== ENCOUNTER 2025-04-06 08:01 | Day surgery (SDC) | payer MEDICARE, SELFPAY ==
--- OUTSIDE RECORDS SUMMARY | 2025-02-12 09:39 | XMS_ITS | Encounter Summary ---
Author Organization [facility] Address [address] [place] [address] Phone Care Team Providers Care Lump Receiver Name Role Phone Sumaya MayuriShasta Winsome ASHRAF Primary Care Provider Encounter Details Date Type Department Care Team (Late st Contact Info) Description 06/28/2024 Procedure Pass [facility], Ct Scan - [facility] [address] [place] [address] Social History Tobacco Use Types Packs/Day Years Used Date Smoking Tobacco: Never Smokeless Tobacco: Never Alcohol Use Standard Drinks/Week Comments Never 0 (1 standard drink = 0.6 oz pur e alcohol) Education Answer Date Recorded Are you interested in more education? Not on susan e 04/26/2024 Are you concerned about learning? Not on file 04/26/2024 No 04/26/2024 No 04/26/2024 Food Answer Date Recorded Within the past 6 months we worried whether our food would run out before we got money to buy more. Never True 04/26/2024 Within the past 6 months the food we bought just didn't last and we didn't have enough money to get more. Never True Residential Stability Answer Date Recor ded What is your housing situation today? I have harshad sing 04/26/2024 How many times have you move d in the past 12 months? Zero (I did not move) 04/26/2024 Paying for Meds Answer Date Recorded Do you have trouble paying for medicines? No 04/26/2024 Paying Utility Bills Answer Date Record ed Do you have trouble paying your heating or elect ricity bill? No 04/26/2024 Transportation Answer Date Recorded Has the lack of transportati on kept you from medical appointments or from getting medications? No 04/26/2024 Digital Access Answer Date Recorded No 04/26/2024 Yes 04/26/2024 Do you have reliable internet access at home? Ye s 04/26/2024 Do you have a device (e.g., phone, tablet, computer) with a working camera? Yes 04/26/2024 Intimate Partner Violence Answer Date R ecorded Are you denied basic needs s uch as food, clothing, or medical care? No 04/26/2024 In the past 12 months have y ou been in a relationship with a person who hurts, threatens, or tries to control you? No 04/26/2024 Are you denied basic needs s uch as food, clothing, or medical care? No 04/26/2024 In the past 12 months have y ou been in a relationship with a person who hurts, threatens, or tries to control you? No 04/26/2024 Comments No Sex and Gender Information Value Date Recorded Sex Assigned at Female 04/26/2024 3:18 PM EDT Legal Sex Female 11:39 AM EDT Gender Identity Female 04/26/2024 3:18 PM EDT Sexual Orientation Not on file documented as of this encounter Plan of Treatment Not on file documented as of this encounter Visit Diagnoses Not on filedocumented in this encounter Care Teams Lump Receiver Relationship Specialty Start Date End Date Shasta Seth MD [address] [place] [phone] [email or web address] PCP - General Internal Medicine 06/22/24 documented as of this encounter Additional Source Comments The information contained in this document represents components of the legal health record. It is not the complete legal health record.[facility]
[2025-04-06] VITALS (7 sets, daily range): BP systolic 119–168; BP diastolic 59–81; PULSE 62–80; RESP 16; TEMP 36.4–36.5; O2SAT 97–100; BMI 22.7
--- NOTE | 2025-04-06 08:43 | P.CONAN_ITS ---
[facility] Active Problems Active Problems: All Active Problems (Updated 02/26/25 @ 15:42 by Raina Moss MD) Parkinsonism (Acute) HLD (hyperlipidemia) (Acute) Parkinsonism (Acute) Dementia, vascular (Acute) Major depressive disorder, recurrent, severe with psychotic features (Acute) Abnormal finding on EKG (Acute) Past Medical History Medical History Parkinsonism Pre-op evaluation History of fracture of left ankle OCD (obsessive compulsive disorder) Major depressive disorder, recurrent severe without psychotic features S/P ECT (electroconvulsive therapy) Family History Family History Mother CHF (congestive heart failure) Family history of problems with anesthesia: No Surgical History Surgical History No history of previous surgery History of Problems with Anesthesia: No Social History Social History Household Members: None Housing: Apartment Housing Other:: [place]way community Do you presently have visiting nurse or other home services: Yes ([employer] [facility]) Patient Tobacco Use Status: Never used Tobacco e-Cigarette/Vaping Use: Never Used Advance Directives: No Advance Directives Information Provided: Yes service: No Sexual orientation: Straight/Heterosexual Meds Allergies Allergy/AdvReac Type Severity Reaction Status Date / Time No Known Allergies (No Known Allergy Verified 02/26/25 14:31 Allergies*) Active Medications: Current Medications Lactated Ringer's (Lr) 1,000 mls @ 50 mls/hr IVCONT .Q20H DENISSE Naloxone HCl (Naloxone Hcl 0.4 Mg/Ml Vial) 0.04 mg IVPUSH Q5M PRN PRN Reason: Excessive sedation or RR < 8 Home Medications ?Medication ?Instructions ?Recorded ?Confirmed ?Last Taken ?Type acetaminophen 500 mg tablet 500 mg PO TID PRN pain 11/09/24 Unknown History (Acetaminophen Extra Strength) Exam Height,Weight and Vital Signs: Height 5 ft 4 in Weight 60 kg Last Vital Signs Temp 97.7 F 04/06/25 08:22 Pulse 71 04/06/25 08:22 Resp 16 04/06/25 08:22 BP 153/66 H 04/06/25 08:22 Pulse Ox 97 09/19/25 08:22 O2 Del Method Room Air 04/06/25 08:22 Airway Mallampati Class: II TM Dist: >3cm Neck ROM: Full Heart: rrr Lungs: cta Assessment and Plan Assessment Anesthesia Assessment: Anesthesia Plan Discussed and Chart Reviewed Final Anesthetic Review Family History of Problems with Anesthesia: No History of Problems with Anesthesia: No NPO: Yes ASA Class: III Final Preanesthetic Review: No Changes in Pt Med Stat, Meds/Allgs Chart Reviewed and Consent Obtained/Reviewed Patient Risk: Intermediate Procedure Risk: Intermediate Anesthetic Plan Anesthetic Plan: GA Disposition: Standard PACU
--- NOTE | 2025-04-06 09:16 | MHC.SHP ---
Pre-Procedural Eval Section A - 24 Hr Update-Section A only Date of Service: 04/06/25 Section B - Complete if H&P > 30 days Chief Complaint: Major depressive disorder, recurrent, severe with Details of Present Illness: hx recurrent depression doing ok upset over memory disorder changes otherwise ok no phy complaints Present Medications: see Short Stay Collaborative assessment Allergies: Allergies Allergy/AdvReac Type Severity Reaction Status Date / Time No Known Allergies (No Known Allergy Verified 02/26/25 14:31 Allergies*) Review of Systems Sugical H&P ROS: Negative: Constitution, Cardiovascular and Respiratory and Yes, Specify: Neurological (feeling stable no pi poor st memory) and Psychiatric (mild dysphoria ongoing) Exam Surgical H&P Exam: Normal: Heart, Normal: Lungs and Normal: Neurological (alert oriented knows ec t for dep) Exam Comment: no gross confusion pleasant no abn movement 153/66 Plan Diagnosis/Plan: Unchanged I have reviewed the history and physical and performed a pertinent physical examination on my patient. No changes have occurred unless specified. Time Spent With Patient Time: Total time managing care of this patient today ____ minutes.
--- NOTE | 2025-04-06 09:31 | HO.ECTPROC ---
ECT Procedure Note Diagnosis/Treatment Date of Service: 04/06/25 Diagnosis: Major Depressive Disorder Treatment: Maintenance Interval Clinical Notes: Patient seen psychiatric follow-up mood okay somewhat discouraged regarding her cognitive health Time: Total time managing care of this patient today __30__ minutes. ECT Settings Device: THYMATRON DGx Electrode Placement: Right Unilateral Program/Pulse Width: 0.50 Energy Percent: 50 Seizure Duration By EEG (in seconds): 46 Medications Administration General Anesthetic: Etomidate (14) Muscle Relaxant: Succinylcholine (80) Ancillary Medications Miscillaneous Medications: Propofol (30) Airway Management Airway Management: Bag Mask Ventilation Treatment Recommendations No Changes Recommended: No change Notes: f/u 4 weeks Pt Tolerated Procedure w/o Issue: Yes
== END 2025-04-06 10:40 | disposition home or self-care (01) ==
PROVIDERS: PCP Internal Medicine; Visit Provider Psychiatry & Neurology Psychiatry
PROC: (CPT 90870; principal; 2025-04-06 09:00)
DX: F33.2 Major depressive disorder, recurrent severe without psychotic features (principal); R60.0 Localized edema; N18.30 Chronic kidney disease, stage 3 unspecified; I12.9 Hypertensive chronic kidney disease with stage 1 through stage 4 chronic kidney disease, or unspecified chronic kidney disease; E78.5 Hyperlipidemia, unspecified; G31.84 Mild cognitive impairment of uncertain or unknown etiology; G20.C Parkinsonism, unspecified; K59.00 Constipation, unspecified; Z79.82 Long term (current) use of aspirin; Z79.899 Other long term (current) drug therapy; Z87.81 Personal history of (healed) traumatic fracture
CPT/HCPCS: 90870; J0330; J2704

== ENCOUNTER → 2025-04-06 08:01 | Outpatient (BNV) | payer MEDICARE, SELFPAY | PROVIDERS: PCP Internal Medicine; Visit Provider Psychiatry & Neurology Psychiatry | DX: F33.2 Major depressive disorder, recurrent severe without psychotic features (principal) | CPT/HCPCS: 90870 ==

== ENCOUNTER 2025-05-04 07:58 | Day surgery (SDC) | payer MEDICARE, SELFPAY ==
--- OUTSIDE RECORDS SUMMARY | 2025-03-09 08:10 | XMS_ITS | Encounter Summary ---
Author Organization [facility] Address [address] [place] [address] Phone Care Team Providers Care Telesales Professional Name Role Phone Sumaya CaroleShasta lennon Winsome ASHRAF Primary Care Provider Encounter Details Date Type Department Care Team (Late st Contact Info) Description 06/28/2024 Procedure Pass [facility], Ct Scan - [facility] [address] [place] [address] Social History Tobacco Use Types Packs/Day Years [...] on filedocumented in this encounter Care Teams Telesales Professional Relationship Specialty Start Date End Date Shasta Seth MD [address] [place] [phone] PCP - General Internal Medicine 06/22/24 documented as of this encounter Additional Source Comments The information contained in this document represents components of the legal health record. It is not the complete legal health record.[facility]
[2025-05-04] VITALS (9 sets, daily range): BP systolic 131–157; BP diastolic 60–77; PULSE 67–86; RESP 13–16; TEMP 36.5–36.7; O2SAT 95–98; BMI 23.0
--- NOTE | 2025-05-04 08:16 | HO.ECTPROC ---
ECT Procedure Note Diagnosis/Treatment Date of Service: 05/04/25 Diagnosis: Major Depressive Disorder Previous ECT Date: 04/06/25 Treatment: Maintenance Interval Clinical Notes: Pt reports that she's 'not good', endorses worsening depression in past month. Denies SI. Unsure if ECT is helping. Agreed with plan to schedule next ECT for 4 wks and I will speak with Dr. Chambers to determine if she should return sooner since he knows her well. Time: Total time managing care of this patient today __30__ minutes. ECT Settings Device: THYMATRON DGx Electrode Placement: Right Unilateral Program/Pulse Width: 0.50 Energy Percent: 50 Seizure Duration By EEG (in seconds): 71 (excellent tracing & postictal suppression ) By Motor Observation (in seconds): 37 Medications Administration General Anesthetic: Etomidate (14 mg) Muscle Relaxant: Succinylcholine (80) Ancillary Medications Miscillaneous Medications: Propofol (30 mg) Airway Management Airway Management: LMA Treatment Recommendations No Changes Recommended: No change Pt Tolerated Procedure w/o Issue: Yes
--- NOTE | 2025-05-04 08:25 | MHC.SHP ---
Pre-Procedural Eval Section A - 24 Hr Update-Section A only Date of Service: 05/04/25 The patient is an INPATIENT: No Changes since office visit: No Cold of Flu in the past 2 weeks, No New Medical Problems, No Changes in Medication and No Patient answered all questions The patient has been examined within 24 hours of the surgical procedure. The History & Physical has been completed within 30 days and I have reviewed it.: Yes Section B - Complete if H&P > 30 days Chief Complaint: Major depressive disorder, recurrent, severe with Details of Present Illness: Pt is here for mECT. Endorses worsening depression. Denies SI Denies any recent illness or new medical issues Relevant Family History (Specify if Yes): No Relevant Social History: None Present Medications: see Short Stay Collaborative assessment History of Previous Operations: No relevant previous surgery Allergies: Allergies Allergy/AdvReac Type Severity Reaction Status Date / Time No Known Allergies (No Known Allergy Verified 02/26/25 14:31 Allergies*) Review of Systems Sugical H&P ROS: Negative: Constitution, Cardiovascular, Respiratory, Neurological, Hem-Onc, Allergic/Immunologic, Gastrointestinal, Genitourinary, Musculoskeletal, Integumentary, Endocrine and Eyes/Ears/Nose/Throat and Yes, Specify: Psychiatric (see above) Exam Surgical H&P Exam: Normal: HEENT, Normal: Heart, Normal: Lungs, Normal: Extremities, Normal: Abdomen, Normal: Skin and Normal: Neurological Plan Diagnosis/Plan: Unchanged (Continue mECT) I have reviewed the history and physical and performed a pertinent physical examination on my patient. No changes have occurred unless specified. Time Spent With Patient Time: Total time managing care of this patient today _15___ minutes.
--- NOTE | 2025-05-04 08:37 | HO.ANESPROP2 ---
[facility] Active Problems Active Problems: All Active Problems (Updated 02/26/25 @ 15:42 by Raina Moss MD) Parkinsonism (Acute) HLD (hyperlipidemia) (Acute) Parkinsonism (Acute) Dementia, vascular (Acute) Major depressive disorder, recurrent, severe with psychotic features (Acute) Abnormal finding on EKG (Acute) Past Medical History Medical History Parkinsonism Pre-op evaluation History of fracture of left ankle OCD (obsessive compulsive disorder) Major depressive disorder, recurrent severe without psychotic features S/P ECT (electroconvulsive therapy) Family History Family History Mother CHF (congestive heart failure) Family history of problems with anesthesia: No Surgical History Surgical History No history of previous surgery History of Problems with Anesthesia: No Social History Social History Household Members: None Housing: Apartment Housing Other:: Residential community Do you presently have visiting nurse or other home services: Yes ([employer]) Patient Tobacco Use Status: Never used Tobacco e-Cigarette/Vaping Use: Never Used Advance Directives: No Advance Directives Information Provided: Yes service: No Sexual orientation: Straight/Heterosexual Meds Allergies Allergy/AdvReac Type Severity Reaction Status Date / Time No Known Allergies (No Known Allergy Verified 02/26/25 14:31 Allergies*) Active Medications: Current Medications Lactated Ringer's (Lr) 1,000 mls @ 50 mls/hr IVCONT .Q20H DENISSE Naloxone HCl (Naloxone Hcl 0.4 Mg/Ml Vial) 0.04 mg IVPUSH Q5M PRN PRN Reason: Excessive sedation or RR < 8 Naloxone HCl (Naloxone Hcl 0.4 Mg/Ml Vial) 0.04 mg IVPUSH Q5M PRN PRN Reason: Excessive sedation or RR < 8 Home Medications ?Medication ?Instructions ?Recorded ?Confirmed ?Last Taken ?Type acetaminophen 500 mg tablet 500 mg PO TID PRN pain 11/09/24 11/09/24 Unknown History (Acetaminophen Extra Strength) Exam Height,Weight and Vital Signs: Height 5 ft 3 in Weight 58.967 kg Last Vital Signs Temp 97.7 F 05/04/25 08:23 Pulse 67 05/04/25 08:23 Resp 13 05/04/25 08:23 BP 146/60 H 05/04/25 08:23 Pulse Ox 96 05/04/25 08:23 O2 Del Method Room Air 05/04/25 08:23 Airway Mallampati Class: II TM Dist: >3cm Neck ROM: Full Heart: rrr Lungs: cta Assessment and Plan Assessment Anesthesia Assessment: Anesthesia Plan Discussed and Chart Reviewed Final Anesthetic Review Family History of Problems with Anesthesia: No History of Problems with Anesthesia: No NPO: Yes ASA Class: III Final Preanesthetic Review: No Changes in Pt Med Stat, Meds/Allgs Chart Reviewed and Consent Obtained/Reviewed Patient Risk: Intermediate Procedure Risk: Intermediate Anesthetic Plan Anesthetic Plan: GA Disposition: Standard PACU
== END 2025-05-04 10:56 | disposition home or self-care (01) ==
PROVIDERS: PCP Internal Medicine; Visit Provider Psychiatry & Neurology Psychiatry
PROC: (CPT 90870; principal; 2025-05-04 09:00)
DX: F33.2 Major depressive disorder, recurrent severe without psychotic features (principal); N18.30 Chronic kidney disease, stage 3 unspecified; I12.9 Hypertensive chronic kidney disease with stage 1 through stage 4 chronic kidney disease, or unspecified chronic kidney disease; G20.C Parkinsonism, unspecified; F03.90 Unspecified dementia, unspecified severity, without behavioral disturbance, psychotic disturbance, mood disturbance, and anxiety; R60.0 Localized edema; E78.5 Hyperlipidemia, unspecified; K59.00 Constipation, unspecified; Z79.82 Long term (current) use of aspirin; Z79.899 Other long term (current) drug therapy
CPT/HCPCS: 90870; J0330; J2704

== ENCOUNTER → 2025-05-04 07:58 | Outpatient (BNV) | payer MEDICARE, SELFPAY | PROVIDERS: PCP Internal Medicine; Visit Provider Psychiatry & Neurology Psychiatry | DX: F33.2 Major depressive disorder, recurrent severe without psychotic features (principal) | CPT/HCPCS: 90870 ==

== ENCOUNTER 2025-06-08 07:47 | Day surgery (SDC) | payer MEDICARE, SELFPAY ==
[2025-06-08] VITALS (9 sets, daily range): BP systolic 129–147; BP diastolic 60–79; PULSE 68–76; RESP 11–16; TEMP 36.3–36.6; O2SAT 94–98; BMI 23.4
--- NOTE | 2025-06-08 08:11 | P.CONAN_ITS ---
[facility] Active Problems Active Problems: All Active Problems Parkinsonism (Acute) HLD (hyperlipidemia) (Acute) Parkinsonism (Acute) Dementia, vascular (Acute) Major depressive disorder, recurrent, severe with psychotic features (Acute) Abnormal finding on EKG (Acute) Past Medical History Medical History Parkinsonism Pre-op evaluation History of fracture of left ankle OCD (obsessive compulsive disorder) Major depressive disorder, recurrent severe without psychotic features S/P ECT (electroconvulsive therapy) Family History Family History Mother CHF (congestive heart failure) Family history of problems with anesthesia: No Surgical History Surgical History No history of previous surgery History of Problems with Anesthesia: No Social History Social History Household Members: None Housing: Apartment Housing Other:: Custodial community Do you presently have visiting nurse or other home services: Yes ([employer] [facility]) Patient Tobacco Use Status: Never used Tobacco e-Cigarette/Vaping Use: Never Used Advance Directives: No Advance Directives Information Provided: Yes service: No Sexual orientation: Straight/Heterosexual Meds Allergies Allergy/AdvReac Type Severity Reaction Status Date / Time No Known Allergies (No Known Allergy Verified 02/26/25 14:31 Allergies*) Active Medications: Current Medications Lactated Ringer's (Lr) 1,000 mls @ 50 mls/hr IVCONT .Q20H DENISSE Naloxone HCl (Naloxone Hcl 0.4 Mg/Ml Vial) 0.04 mg IVPUSH Q5M PRN PRN Reason: Excessive sedation or RR < 8 Home Medications ?Medication ?Instructions ?Recorded ?Confirmed ?Last Taken ?Type acetaminophen 500 mg tablet 500 mg PO TID PRN pain 11/09/24 Unknown History (Acetaminophen Extra Strength) Exam Height,Weight and Vital Signs: Height 5 ft 3 in Weight 59.874 kg Airway Mallampati Class: II TM Dist: >3cm Neck ROM: Full Heart: rrr Lungs: cta Assessment and Plan Assessment Anesthesia Assessment: Anesthesia Plan Discussed and Chart Reviewed Final Anesthetic Review Family History of Problems with Anesthesia: No History of Problems with Anesthesia: No NPO: Yes ASA Class: III Final Preanesthetic Review: No Changes in Pt Med Stat, Meds/Allgs Chart Reviewed and Consent Obtained/Reviewed Patient Risk: Intermediate Procedure Risk: Intermediate Anesthetic Plan Anesthetic Plan: GA Disposition: Standard PACU
--- NOTE | 2025-06-08 08:46 | P.HPSUR_ITS ---
Pre-Procedural Eval Section A - 24 Hr Update-Section A only Date of Service: 06/08/25 The patient is an INPATIENT: No Changes since office visit: No Cold of Flu in the past 2 weeks, No New Medical Problems, No Changes in Medication and No Patient answered all questions The patient has been examined within 24 hours of the surgical procedure. The History & Physical has been completed within 30 days and I have reviewed it.: No Section B - Complete if H&P > 30 days Chief Complaint: Major depressive disorder, recurrent, severe with Details of Present Illness: feels depressed. denies SI. Denies recent illness Relevant Family History (Specify if Yes): No Relevant Social History: None Present Medications: see Short Stay Collaborative assessment Medical History: No relevant PMH History of Previous Operations: No relevant previous surgery Allergies: Allergies Allergy/AdvReac Type Severity Reaction Status Date / Time No Known Allergies (No Known Allergy Verified 02/26/25 14:31 Allergies*) Review of Systems Sugical H&P ROS: Negative: Constitution, Cardiovascular, Respiratory, Neurological, Allergic/Immunologic, Gastrointestinal, Genitourinary, Musculo skeletal, Integumentary, Endocrine and Eyes/Ears/Nose/Throat and Yes, Specify: Psychiatric Exam Surgical H&P Exam: Normal: HEENT, Normal: Heart, Normal: Lungs, Normal: Extremities, Normal: Abdomen, Normal: Skin and Normal: Neurological Plan Diagnosis/Plan: Unchanged I have reviewed the history and physical and performed a pertinent physical examination on my patient. No changes have occurred unless specified. Time Spent With Patient Time: Total time managing care of this patient today ____ minutes.
--- NOTE | 2025-06-08 10:12 | HO.ECTPROC ---
ECT Procedure Note Diagnosis/Treatment Date of Service: 06/08/25 Diagnosis: Major Depressive Disorder Previous ECT Date: 06/04/25 Treatment: Maintenance Interval Clinical Notes: Pt reports that she's not so good --feeling depressed. Denies SI. T/W spoke w/ pt's son/HCP to sign her consent, who reported that she had a rough couple of weeks since last tx but her sister is visiting and she's been doing better. Discussed option to return sooner. He would be open to that but asked t/w to communicate w/ Dr. Chambers to see what he recommends. Scheduled for 4 wks for now. Time: Total time managing care of this patient today ____ minutes. ECT Settings Device: THYMATRON DGx Electrode Placement: Right Unilateral Program/Pulse Width: 0.25 Energy Percent: 70 Seizure Duration By EEG (in seconds): 96 By Motor Observation (in seconds): 47 Medications Administration General Anesthetic: Etomidate (14) Muscle Relaxant: Succinylcholine (80) Ancillary Medications Miscillaneous Medications: Propofol (30 mg) Airway Management Airway Management: Bag Mask Ventilation Treatment Recommendations Pt Tolerated Procedure w/o Issue: Yes
== END 2025-06-08 10:53 | disposition home or self-care (01) ==
PROVIDERS: PCP Internal Medicine; Visit Provider Psychiatry & Neurology Psychiatry
PROC: (CPT 90870; principal; 2025-06-08 09:30)
DX: F33.2 Major depressive disorder, recurrent severe without psychotic features (principal); N18.30 Chronic kidney disease, stage 3 unspecified; I12.9 Hypertensive chronic kidney disease with stage 1 through stage 4 chronic kidney disease, or unspecified chronic kidney disease; F03.90 Unspecified dementia, unspecified severity, without behavioral disturbance, psychotic disturbance, mood disturbance, and anxiety; G20.C Parkinsonism, unspecified; R60.0 Localized edema; E78.5 Hyperlipidemia, unspecified; Z79.82 Long term (current) use of aspirin; Z79.899 Other long term (current) drug therapy
CPT/HCPCS: 90870; J0330; J2704

== ENCOUNTER → 2025-06-08 07:47 | Outpatient (BNV) | payer MEDICARE, SELFPAY | PROVIDERS: PCP Internal Medicine; Visit Provider Psychiatry & Neurology Psychiatry | DX: F33.2 Major depressive disorder, recurrent severe without psychotic features (principal) | CPT/HCPCS: 90870 ==

== ENCOUNTER 2025-06-28 14:29 | Outpatient (AMB) | payer MEDICARE, SELFPAY ==
--- NOTE | 2025-06-28 14:43 | MHC.OFFVIS ---
Vital Signs 06/28/25 14:51 Height 5 ft 3 in Weight 133 lb BMI 23.6 BP 136/80 Blood Pressure Location Rt brachial Position Sitting Pulse 68 Pulse Source Pulse Oximeter Pulse Oximetry (%) 96 Oxygen Delivery Method Room Air Intake Visit Reasons: 6mnth follow up Intake Note: Follow up Parkinsonism, unspecified Therapeutic Specialist Required: No Accompanied by: Care Management - Allergies No Known Allergies (No Known Allergies*) Allergy (Verified 02/26/25 14:31) Medication List - Last Reconciled 06/28/25 by Raina Moss MD acetaminophen (Acetaminophen Extra Strength) 500 mg PO TID PRN amlodipine 5 mg See Protocol PO DAILY 30 days aspirin 81 mg PO DAILY atorvastatin 10 mg PO BEDTIME 30 days docusate sodium (Colace) 100 mg PO BEDTIME 30 days memantine 7 mg PO DAILY 30 days olanzapine orally qam and q 2pm; qam and q 2pm olanzapine 10 mg PO BEDTIME 30 days polyethylene glycol 3350 (Miralax) 17 grams PO 3XW sennosides (senna) 8.6 mg PO BEDTIME 30 days trazodone 50 mg PO BEDTIME vortioxetine (Trintellix) 20 mg (2 x 10 mg) PO DAILY 30 days HPI Comments Details: 84y/o female comes for follow up of parkinsonism.Her symptoms improved with stopping rexulti . History from initial visit-02/2025 she has long h/o depression and has been on multiple meds , antipsychotics and ECT for many years . she is currently on olanzapine. she started noticing tremors R>L UE action tremors, upper body stiffness , difficulty with ADLs,slowness of her activities about 5-6 mths ago . she was seen by and diagnosed with Parkinsons disease. she was admitted at [facility] Psych unit - her medications were adjusted. she was tapered off abilify and is currently on olanzapine,trentillex , rixulti etc.As per her caretakes - her symptoms have decreased since her abilify was tapered and other medication changes were made. However the patient did not try carbidopa/levodopa which was recommended . she wants second opinion on the diagnosis. she is slow, balance is mildly off balance , bradykinetic , decreased facial expression , softer voice etc. No falls she has depression , constipation ( senna helps ), anxiety - mood disorder was diagnosed in her 50s. No REM behavior disorder. she also reports memory issues- she has trouble with remembering conversations recalling names etc.No hallucinations she is on senna to help with constipation.No recent falls she lives in [facility] - her lives in the Memory unit [facility] Medical History (Updated 06/28/25 @ 15:20 by Raina Moss MD) Cognitive change Parkinsonism Pre-op evaluation History of fracture of left ankle OCD (obsessive compulsive disorder) Major depressive disorder, recurrent severe without psychotic features S/P ECT (electroconvulsive therapy) Surgical History No history of previous surgery Family History Mother CHF (congestive heart failure) Social History Household Members: None Housing: Apartment Housing Other:: Senior Living community Do you presently have visiting nurse or other home services: Yes ([employer] [facility]) Patient Tobacco Use Status: Never used Tobacco e-Cigarette/Vaping Use: Never Used service: No Sexual orientation: Straight/Heterosexual Physical Exam Vital Signs: Last Vital Signs Pulse 68 06/28/25 14:51 BP 136/80 06/28/25 14:51 Pulse Ox 96 06/28/25 14:51 Oxygen Delivery Method Room Air 06/28/25 14:51 BMI result Body Mass Index 23.6 Const General: cooperative, healthy appearing, comfortable and no acute distress Nutritional Appearance: average body habitus Orientation/consciousness: patient oriented x3 Eyes Pupils: Equal, round and reactive pupils present Neuro Other: Mild decreased blink and facial expression Mild Hypophonia no tremors Romulo Cog wheel rigidity R>L FFM Foot taps- mild decreased R>L Gait- mild stoop , decreased arm swings - better than last visit General: patient oriented x3 and no focal motor deficits Cranial nerves: Yes Facial sensation intact/muscles of mastication intact, Yes Equal, round and reactive pupils present, Yes Bilaterally intact EOM present, Yes Nystagmus not present, Yes Normal facial strength present, Yes Midline tongue present and Yes Ability to bilaterally elevate shoulders present Cognition (Neuro): normal cognition Motor exam (neuro): 5/5 motor strength present throughout Deep tendon reflexes (DTR's): Right triceps reflex intensity grade: 3+, Left triceps reflex intensity grade: 3+, Rt Biceps (C5, C6): 3+, Left biceps reflex intensity grade: 3+, Right brachioradialis reflex intensity grade: 3+, Left brachioradialis reflex intensity grade: 3+, Right patellar reflex intensity grade: 3+ and Left patellar reflex intensity grade: 3+ Coordination: [id number] test normal Orientation What is the (year) (season) (date) (day) (month)?: year, season, date, day and month Where are we (state) (county) (town or city) (hospital) (floor)?: state, town or city, hospital/clinic and floor Registration Name of 3 unrelated objects clearly and slowly, then ask patient to repeat all 3 of them. (1st repeat determines score. Make sure they can repeat all three): object 1, object 2 and object 3 Attention & Calculation (CHOOSE ONE) Spell WORLD backwards (DLROW): 5 letters Recall Ask patient to repeat the 3 items from question #3.: object 1 and object 2 Language Show patient a wristwatch & ask what it is. Repeat for pencil.: watch and pencil Ask the patient to repeat the phrase 'No ifs, ands, or buts' after you.: correct Ask the patient to 'take a piece of paper with their right hand' 'fold paper in half' 'place paper on floor': take paper in right hand, fold paper in half and place paper on floor Print the sentence 'CLOSE YOUR EYES' on a piece. If patient actually closes eyes then score.: followed written direction Give patient a blank piece of paper & ask to write a sentence. Score if it contains a noun & verb.: sentence contains subject and verb Ask patient to copy figure of intersecting pentagons exactly. 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 Her MRI showed small vessel disease . Code(s): R41.89 - Other symptoms and signs involving cognitive functions and awareness Category: Medical Plan REviewed MRI brain Neuropsyhc testing No clinical evidence of NPH FABIAN scan was negative Continue exercise Orders: Referrals Neuropsychiatry Referral R41.89 - Other symptoms and signs involving cognitive functions and awareness Medications: Changed From vortioxetine (Trintellix) 10 mg PO DAILY 30 days 30 tabs 1RF To vortioxetine (Trintellix) 20 mg (2 x 10 mg) PO DAILY 1 tab 1RF 30 days Discontinued brexpiprazole (Rexulti) Discontinued Reason: Patient no longer taking 1 mg PO DAILY 30 tabs 0RF Coding Level of Care Code Est Pt Level 4 (43828) Add On Problem Visit Only Diagnoses Neuroleptic-induced parkinsonism G21.11; 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
[2025-06-28 14:51] VITALS: BP 136/80; PULSE 68; O2SAT 96; BMI 23.6
--- OUTSIDE RECORDS SUMMARY | 2025-06-28 22:08 | XMS_ITS | Encounter Summary ---
Author Organization [facility] Address [address] [facility] [address] [place] [phone] Phone Care Team Providers Care Air Conditioning Manager Name Role Phone Shasta Seth MD Primary Care Provider Encounter Details Date Type Department Care Team (Late st Contact Info) Description 06/28/2024 Procedure Pass [facility], Ct Scan - [facility] [address] [place] [address] Social History Tobacco Use Types Packs/Day Years [...] on filedocumented in this encounter Care Teams Air Conditioning Manager Relationship Specialty Start Date End Date Shasta Seth MD [address] [place] [phone] [email or web address] PCP - General Internal Medicine 06/22/24 documented as of this encounter Additional Source Comments The information contained in this document represents components of the legal health record. It is not the complete legal health record.[facility]
--- OUTSIDE RECORDS SUMMARY | 2025-06-28 22:08 | XMS_ITS | Encounter Summary ---
Author Organization [facility] Address [address] [employer] [facility] [address] [place] [phone] Phone Care Team Providers Care Primary Care Provider Name Role Phone Damaris Zambrano NP Primary Care Provider [phone] Griselda Lynne MD Primary Care Provider + Shasta Seth MD Primary Care Provider Encounter Details Date Type Department Care Team (Late st Contact Info) Description 05/09/2024 Procedure Pass OR Admitting Dept - [facility] Department [address] [place] [address] Social History Tobacco Use Types Packs/Day Years [...] on filedocumented in this encounter Care Teams Primary Care Provider Relationship Specialty Start Date End Date Damaris Zambrano NP [address] [place] [address] PCP - General Nurse Practitioner 12/29/23 05/11/24 Griselda Lynne MD [address] [place] [phone] [email or web address] PCP - General Family Medicine 05/12/24 06/21/24 Shasta Seth MD [address] [place] [phone] [email or web address] PCP - General Internal Medicine 06/22/24 documented as of this encounter Additional Source Comments The information contained in this document represents components of the legal health record. It is not the complete legal health record.[facility]
--- OUTSIDE RECORDS SUMMARY | 2025-06-28 22:08 | XMS_ITS | Continuity of Care Document ---
Author Organization [place] - [facility] [employer], [facility] Address [address] [facility] [address] [place] [address] Care Team Providers Care Graffiti Cleaner Name Role Phone SHAHNAZKIANNA MILAN Primary Care [...] cognitive impairment. She is currently living at [facility] and has [facility] as support in addition to her family. Cognitive Care Plan Elements: 1. Cognition: Cognitive Decline which may be multifactorial. Possible contributing factors include: cardiovascular - has HTN and CKD, depression/anxiety, ECT, medications Assessment: Maribell reports memory decline starting approximately five years ago, coinciding with a move from [place] to [place]. Recent cognitive testing revealed a score of [...] Rufino and Vivien, and receives assistance from [facility] staff with medications and housekeeping. Plan: [...] 2. Function: a. Parr ADL: 6 b. Platter-Owen IADL: 1 - can use phone. Plan: Getting help from the [facility] Staff and [facility] 3. Stage of cognitive impairment: Mild Dementia Severity Rating Scale (DSRS) : 11- changes in memory, speech, orientation to time, place, ability to make decisions, social activity, personal care, occ control of urination, doesnt drive Plan: Continue to think about planning for the future based on stages and care recommendations Continue [facility]. 4. Decision-makin level rating scale global clinician judgement: may have been done in [place] (Able to make own decisions, not able [...] olanzapine but indicated. Administration: Gets help from [facility] program, [facility] staff 7. Safety: Safety Assessment Guide: a. Is the patient still driving? no b. Is the patient taking medications as prescribed? yes - [facility] program c. Are there concerns about safety [...] Dr. Butler, children and from [facility] care proxy: Yes - HCP inovked by Dr Chambers, [facility] Molst: Yes Checklist reviewed Plan (Preferences and [...] Address Organization Details Recorded Time Depressive disorder 73000392 Active 2024 Gene July [facility] 13:53:16 Kidney disease 23351718 Active 2024 Gene Mcdowell [facility] 13:53:43 Alzheimer's disease 19264058 Active 2024 Gene July [facility] 13:54:34 Retinal disorder 85391299 Active 2024 Gene July [facility] 13:54:57 Basal cell carcinoma of face 813893240 Active 2024 Gene July [facility] Appier [facility] 13:55:20 Essential hypertension 75382765 Active 2024 Gene July [facility]ier [facility] 13:55:36 Anxiety 93582956 Active 2024 Gene July [facility]ier [facility] 14:00:55 Cognitive function finding 026091798 Active 2024 Lexi Olmedo MD [address], [address], [facility] 16:59:22 Major depression with psychotic features 930071604 Active 2024 Lexi Olmedo MD [address], [address], [facility] 16:59:26 Problem Notes None recorded. Medical Equipment [...] Updated DateTime 5 160.02 cm 23 kg/m2 17927.0 1 g 96.02 % 65 /min 104/58 mm[Hg] [facility] 13:[facility]20 Social History None recorded. Functional Status [...] [facility] [address] [facility] [address] [place] [address] 05/08/2025 13:03:15 05/08/2025 21:17:32 Anxiety 69183053 F41.9 27543 Social Anxiet Plan:- Encourage gradual exposure to social situations - doing chair yoga which is great.- Discuss coping strategies for managing anxiety in social settings- Monitor impact of anxiety on daily activities and social interactio ns Major depr ession with psychotic features 986846401 F32.3 [id number] Assessment : Patient has a longstandi ng [...] pines as you are. Cognitive function finding 672381214 R41.89 1016225 as above Essential hypertension 58323436 I10 23109 Goal SBP ~ 120-130. Today, BP 104/58Woul [...] ID Guarantor Name 05/08/2025 1 MEDICARE B-[place]: [employer] Maribell Zayas [id number] Maribell Zayas 05/08/2025 2 BCBS-[place]: [place] BS - [facility] SECURITY 65 PLAN (MEDICARE SUPPLEMENT) [id number] Maribell Zayas [id number] Maribell Zayas Notes Date Note Type Note Provider Name and Address Organization Details Recorded Time 05/08/2025 text/html ROS as noted in the HPI Since last visit, NPV 7.23.25 Maribell is here for CCP with from [facility]. Since last visit, has been going [...] watch television. She continues to live at [facility] where staff assists with medications and housekeeping. She has a strong support system including Urfino and Vivien. She reports being pretty good at understanding medical issues and medications.Review of SystemsMusculoskele marita: Positive for feeling like leaning forward when walking, negative for falls.Neurological: Positive for fair memory (stable over last 3 months).Psychiatric : Positive for okay mood with ability to laugh a little. Lexi Olmedo MD [address] [place] [address], [phone], [facility] 05/08/2025 13:45:37 OBGyn Episode No OBEpisode recorded.
--- OUTSIDE RECORDS SUMMARY | 2025-06-28 22:08 | XMS_ITS | Encounter Summary ---
Author Organization [facility] Address [address] [address] Phone Care Team Providers Care Skin Diver Name Role Phone Damaris Zambrano NP Primary Care Provider [phone] Griselda Lynne MD Primary Care Provider + Shasta Seth MD Primary Care Provider Encounter Details Date Type Department Care Team (Latest Contact Info) Description 11/26/2023 Transcribe Orders Virtual Department [address] [place] [address] Viviana Santana PA [address] [place] [address] Asymptomatic menopausal state (Primary Dx) Social History [...] Referred By: VIVIANA SANTANA Indications: Postmenopausal Scanner: HoloBlucarat A with serial# of [id number] located at [facility] Bone Density Scan (DXA) 10/11/24 Details of [...] -2.5), or Osteoporosis (T-score <= -2.5). At [facility], T-scores are compared to peak bone density [...] Referred By: VIVIANA SANTANA Indications: Postmenopausal Scanner: [email or web address] A with serial# of [id number] located at [facility] Bone Density [...] -2.5), or Osteoporosis (T-score <= -2.5). At [facility], T-scores are compared to peak bone density [...] state documented in this encounter Care Teams Skin Diver Relationship Specialty Start Date End Date Damaris Zambrano NP [address] [place] [address] PCP - General Nurse Practitioner 12/29/23 05/11/24 Griselda Lynne MD [address] [place] [address] [email or web address] PCP - General Family Medicine 05/12/24 06/21/24 Shasta Seth MD [address] [place] [address] [email or web address] PCP - General Internal Medicine 06/22/24 documented as of this encounter Additional Source Comments The information contained in this document represents components of the legal health record. It is not the complete legal health record.[facility]
--- OUTSIDE RECORDS SUMMARY | 2025-06-28 22:08 | XMS_ITS | Clinical Summary ---
Author Organization [facility] Address [address] [facility] [address] [address] Phone Care Team Providers Care Proposal Coordinator Name Role Phone Shasta Seth MD Primary [...] note Concern for possible movement disorder [place] [place] by Cesario Krause -Obtaining [...] mortise concerning for ankle instability. S/p [facility] fall Prior team discussed case with Dr. [...] avulsion fracture of left ank le 04/26/2024 Encounters Date Type Department Care Team Description 06/15/2025 Lab Requisition [facility] Lab Main [address] [place] [address] Meli Guerrero PA Disorientation, unspecified; Other fatigue; Hyperlipidemia, unspecified; Type 2 diabetes mellitus without complications from Last 3 Months Social History Tobacco Use Types Packs/Day Years [...] 04/13/2022, 12/09/2021, Additional history exists HEMOGLOBIN A1C 12/13/2025 06/15/2025, 09/28/2024 LIPID PANEL 06/15/2026 06/15/2025, 06/29/2024 Adult Td,Tdap Booster 03/07/2030 03/07/2020 ZOSTER [...] this topic Medical Devices Implanted Type Area Welding Technician Device Identifier Shelf Expiration Date Model / Serial / Lot Screw Spine 3.5x10mm Plate R3con Locking - [id number] Implanted:Qty: 1 on 05/09/2024 by Kaz Kelly MD at [facility] Left: Ankle [employer] [id number] 10 / / Screw Spine 3.5x12mm Plate R3con Locking - [id number] Implanted:Qty: 1 on 05/09/2024 by Kaz Kelly MD at [facility] Left: Ankle [employer] [id number] 12 / / Screw Plate 3.5x14mm R3con Locking - [id number] Implanted:Qty: 1 on 05/09/2024 by Kaz Kelly MD at [facility] Left: Ankle [employer] [id number] 14 / / Screw Spine 3.5x16mm Plate R3con Locking - [id number] Implanted:Qty: 2 on 05/09/2024 by Kaz Kelly MD at [facility] Left: Ankle [employer] [id number] 16 / / Screw 3.5x10mm Small R3con Non Locking Plate [employer] - [id number] Implanted:Qty: 1 on 05/09/2024 by Kaz Kelly MD at [facility] Left: Ankle [employer] [id number] 10 / / Screw Plate 3.5x12mm Nonlocking R3con - [id number] Implanted:Qty: 1 on 05/09/2024 by Kaz Kelly MD at [facility] Left: Ankle [employer] [id number] 12 / / Bone Plate Lt Fusion Lateral Ankle Tt - [id number] Implanted:Qty: 1 on 05/09/2024 by Kaz Kelly MD at [facility] Left: Ankle [employer] [id number] 09 / / Screw Mini Monster Cannulated Long Threaded Headed 4x44mm - [id number] Implanted:Qty: 2 on 05/09/2024 by Kaz Kelly MD at [facility] Left: Ankle [employer] [id number] 4L / / K-Wire Bone 1.6l483yj Smooth Single Ended - [id number] Implanted:Qty: 2 on 05/09/2024 by Kaz Kelly MD at [facility] Left: Ankle [employer] [id number] 15 / / Procedures Procedure Name Priority Date/Time Associated Diagnosis Comments BASIC METABOLIC PANEL (BMP) Today 06/15/2025 8:25 AM EST Disorientation, unspecified Other fatigue Hyperlipidemia, unspecified Type 2 diabetes mellitus without complications HEMOGLOBIN A1C Today 06/15/2025 8:25 AM EST Disorientation, unspecified Other fatigue Hyperlipidemia, unspecified Type 2 diabetes mellitus without complications CBC Today 06/15/2025 8:25 AM EST Disorientation, unspecified Other fatigue Hyperlipidemia, unspecified Type 2 diabetes mellitus without complications LIPID PANEL Today 06/15/2025 8:25 AM EST Disorientation, unspecified Other fatigue Hyperlipidemia, unspecified Type 2 diabetes mellitus without complications THYROID STIMULATING HORMONE (TSH) Today 06/15/2025 8:25 AM EST Disorientation, unspecified Other fatigue Hyperlipidemia, unspecified Type 2 diabetes mellitus without complications BD DXA AXIAL (SPINE) WITH HIP Routine 10/11/2024 8:34 AM EDT Asymptomatic menopausal state from Last 3 Months or Most Recently Relevant to Health Maintenance Results * CBC (06/15/2025 8:25 AM EST) WBC 7.36 4.00 - 11.00 K/uL 06/15/2025 10:03 AM [facility] RBC 4.46 4.00 - 5.20 M/uL 06/15/2025 10:03 AM [facility] Hemoglobin 13.6 12.0 - 16.0 g/dL 06/15/2025 10:03 AM [facility] Hematocrit 41.7 36.0 - 46.0 % 06/15/2025 10:03 AM [facility] MCV 93.5 80.0 - 100.0 fL 06/15/2025 10:03 AM [facility] MCH 30.5 27.0 - 31.0 pg 06/15/2025 10:03 AM [facility] MCHC 32.6 32.0 - 36.0 g/dL 06/15/2025 10:03 AM [facility] PLT 224 150 - 450 K/uL 06/15/2025 10:03 AM [facility] MPV 11.4 8.4 - 12.0 fL 06/15/2025 10:03 AM [facility] RDW-CV 13.4 11.5 - 14.5 % 06/15/2025 10:03 AM [facility] Absolute NRBC 0.00 <=0.00 K cells/uL 06/15/2025 10:03 AM [facility] NRBC 0.0 <=0.0 /100 WBCs 06/15/2025 10:03 AM [facility] Blood (Blood) 06/15/2025 8:2 5 AM EST 06/15/2025 9:38 AM EST Meli Guerrero ME LAB BLOOD BKR ORDERABLES Final R esult [address] [address] * Thyroid Stimulating Hormone (TSH) (06/15/2025 8:25 AM EST) TSH 3.92 0.40 - 7.50 uIU/mL 06/15/2025 10:46 AM [facility] Blood (Blood) 06/15/2025 8:2 5 AM EST 06/15/2025 9:38 AM EST Meli Guerrero ME LAB BLOOD BKR ORDERABLES Final R esult [address] [address] * Hemoglobin A1c (06/15/2025 8:25 AM EST) Hemoglobin A1c 5.5 4.3 - 5.6 % 06/15/2025 11:07 AM [facility] Calculated Mean Blood Glucose 111 mg/dL 06/15/2025 11:07 AM [facility] Comment:There is no [facility] normal range for the Estimated Average Glucose (EAG). However, a HbA1c of 5.6% (upper limit of normal) represents an EAG of 114 mg/dL. The diagnostic HbA1c level for diabetes is greater than or equal to 6.5%, which represents an EAG greater than or equal to 140 mg/dL. Blood (Blood) 06/15/2025 8:2 5 AM EST 06/15/2025 9:38 AM EST Meli TAMAYO LAB BLOOD BKR ORDERABLES Final R esult Performing Organization Address City/State/[facility] Co de Phone Number [address] [place] [address] * Lipid Panel (06/15/2025 8:25 AM EST) Cholesterol 195 <200 mg/dL 06/15/2025 10:46 AM [facility] HDL 105 >=40 mg/dL 06/15/2025 10:46 AM [facility] Calculated LDL 82 <130 mg/dL 06/15/2025 10:46 AM [facility] Comment:LDL is calculated us ing the Iglesias-NIH equation (JESSICA Cardiol. 2019November 16;5(5):540-548). Non-HDL Cholesterol 90 mg/dL 06/15/2025 10:46 AM [facility] Comment:Guidelines suggest a non-HDL cholesterol goal 30 mg/dL higher than the patient-specific LDL cholesterol goal. Cardiac Risk Ratio 1.9 0.0 - 5.0 2024 10:46 AM [facility] Triglycerides 38 <=150 mg/dL 06/15/2025 10:46 AM [facility] Blood (Blood) 06/15/2025 8:2 5 AM EST 06/15/2025 9:38 AM EST Meli TAMAYO LAB BLOOD BKR ORDERABLES Final R esult [address] [address] * (ABNORMAL) Basic Metabolic Panel (BMP) (06/15/2025 8:25 AM EST) Sodium 140 136 - 145 mmol/L 06/15/2025 10:46 AM [facility] Potassium 4.6 3.4 - 5.1 mmol/L 06/15/2025 10:46 AM [facility] Chloride 104 98 - 107 mmol/L 06/15/2025 10:46 AM [facility] CO2 25 20 - 31 mmol/L 06/15/2025 10:46 AM [facility] Anion Gap 11 3 - 17 mmol/L 06/15/2025 10:46 AM [facility] BUN 19 6 - 23 mg/dL 06/15/2025 10:46 AM [facility] Creatinine 1.10(H) 0.50 - 1.00 mg/dL 06/15/2025 10:46 AM [facility] eGFR 50(L) >59 mL/min/1.7 3m2 06/15/2025 10:46 AM [facility] Comment:Estimated glomerular filtration rate calculated using the CKD-EPI refit equation. Glucose 102(H) 70 - 99 mg/dL 06/15/2025 10:46 AM [facility] Calcium 9.3 8.5 - 10.5 mg/dL 06/15/2025 10:46 AM [facility] Blood (Blood) 06/15/2025 8:2 5 AM EST 06/15/2025 9:38 AM EST us Meli TAMAYO LAB BLOOD BKR ORDERABLES Final R esult [address] [address] * BD DXA AXIAL (SPINE) WITH HIP (10/11/2024 8:34 AM EDT) Anatomical Region Laterality Modality Bone Density Bone Density 10/11/2024 8:22 AM EDT Impressions 10/12/2024 8:26 AM EDT Interpretation: Osteopenia. Narrative 10/12/2024 8:26 AM EDT Referred By: VIVIANA SANTANA Indications: Postmenopausal Scanner: HeartFlow A with serial# of [id number] located at [facility] Bone Density Scan (DXA) 10/11/24 Details [...] -2.5), or Osteoporosis (T-score <= -2.5). At [facility], T-scores are compared to peak bone [...] Referred By: VIVIANA SANTANA Indications: Postmenopausal Scanner: HeartFlow A with serial# of [id number] located at [facility] Bone Density Scan (DXA) 10/11/24 Details [...] -2.5), or Osteoporosis (T-score <= -2.5). At [facility], T-scores are compared to peak bone [...] density results. IMPRESSION: Interpretation: Osteopenia. Viviana TAMAYO IMEverardo BD BONE DENSITY DEXA F inal Result from Last 3 Months or Most Recently Relevant to Health Maintenance Insurance MEDICARE PART A & B MEDICARE PART A & B MEDICARE PART A & B MEDICARE PART A & B MEDICARE PART A & B MEDICARE PART A & B Advance Directives For more information, please contact: [phone] (9AM - 5PM [facility], Wednesday-Wednesday) Documents on File Type Date Recorded Patient Verifying Machine Operator Expl anation MOLST 05/04/2024 4:47 PM Durable Power of Contract Runner 04/28/2024 4:39 PM Healthcare Proxy 04/26/2024 Healthcare Proxy Durable Power of Contract Runner 04/26/2024 Durable Power of Contract Runner * Full Code (Latest Code Status on File) Date Activated Date Inactivated Comments 04/26/2024 7:47 PM Question Answer Comments Code Status Confirmed With: Patient Care Teams Proposal Coordinator Relationship Specialty Start Date End Date Shasta Seth MD [address] [place] [phone] [email or web address] PCP - General Internal Medicine 06/22/24 Additional Source Comments The information contained in this document represents components of the legal health record. It is not the complete legal health record.[facility]
--- OUTSIDE RECORDS SUMMARY | 2025-06-28 22:08 | XMS_ITS | Encounter Summary ---
Author Organization [facility] Address [address] [facility] [address] [place] [address] Phone Care Team Providers Care Armoring Machine Operator Name Role Phone Shasta Seth MD Primary Care Provider Encounter Details Date Type Department Care Team (Latest Contact Info) Description 06/15/2025 Lab Requisition [facility] Lab Main [address] [place] [address] Meli Guerrero PA [address] [place] [address] Disorientation, unspecified; Other fatigue; Hyperlipidemia, unspecified; Type 2 diabetes mellitus without complications Social History Tobacco Use Types Packs/Day Years [...] on file documented as of this encounter Procedures Procedure Name Priority Date/Time Associated Diagnosis Comments CBC Today 06/15/2025 8:25 AM EST Disorientation, [...] unspecified Type 2 diabetes mellitus without complications BASIC METABOLIC PANEL (BMP) Today 06/15/2025 8:25 AM EST Disorientation, unspecified Other fatigue Hyperlipidemia, unspecified Type 2 diabetes mellitus without complications documented in this encounter Results * (ABNORMAL) Basic Metabolic Panel (BMP) (06/15/2025 8:25 AM EST) Sodium 140 136 - 145 mmol/L 06/15/2025 10:46 AM [facility] Potassium 4.6 3.4 - 5.1 mmol/L 06/15/2025 10:46 AM [facility] Chloride 104 98 - 107 mmol/L 06/15/2025 10:46 AM [facility] CO2 25 20 - 31 mmol/L 06/15/2025 10:46 AM [facility] Anion Gap 11 3 - 17 mmol/L 06/15/2025 10:46 AM [facility] BUN 19 6 - 23 mg/dL 06/15/2025 10:46 AM [facility] Creatinine 1.10(H) 0.50 - 1.00 mg/dL 06/15/2025 10:46 AM [facility] eGFR 50(L) >59 mL/min/1.7 3m2 06/15/2025 10:46 AM [facility] Comment:Estimated glomerular filtration rate calculated using the CKD-EPI refit equation. Glucose 102(H) 70 - 99 mg/dL 06/15/2025 10:46 AM [facility] Calcium 9.3 8.5 - 10.5 mg/dL 06/15/2025 10:46 AM [facility] Blood (Blood) 06/15/2025 8:2 5 AM EST 06/15/2025 9:38 AM EST us Meli Gurerero PA LAB BLOOD BKR ORDERABLES Final R esult Performing Organization Address [facility]/ZIP Co de Phone Number [address] [address] * Hemoglobin A1c (06/15/2025 8:25 AM EST) Hemoglobin A1c 5.5 4.3 - 5.6 % 06/15/2025 11:07 AM [facility] Calculated Mean Blood Glucose 111 mg/dL 06/15/2025 11:07 AM [facility] Comment:There is no [facility] normal range for the Estimated Average Glucose [...] ORDERABLES Final R esult Performing Organization Address [facility] Co de Phone Number [address] [address] * CBC (06/15/2025 8:25 AM EST) WBC 7.36 4.00 - 11.00 K/uL 06/15/2025 10:03 AM [facility] RBC 4.46 4.00 - 5.20 M/uL 06/15/2025 10:03 AM [facility] Hemoglobin 13.6 12.0 - 16.0 g/dL 06/15/2025 10:03 AM [facility] Hematocrit 41.7 36.0 - 46.0 % 06/15/2025 10:03 AM [facility] MCV 93.5 80.0 - 100.0 fL 06/15/2025 10:03 AM [facility] MCH 30.5 27.0 - 31.0 pg 06/15/2025 10:03 AM [facility] MCHC 32.6 32.0 - 36.0 g/dL 06/15/2025 10:03 AM [facility] PLT 224 150 - 450 K/uL 06/15/2025 10:03 AM [facility] MPV 11.4 8.4 - 12.0 fL 06/15/2025 10:03 AM [facility] RDW-CV 13.4 11.5 - 14.5 % 06/15/2025 10:03 AM [facility] Absolute NRBC 0.00 <=0.00 K cells/uL 06/15/2025 10:03 AM [facility] NRBC 0.0 <=0.0 /100 WBCs 06/15/2025 10:03 AM [facility] Blood (Blood) 06/15/2025 8:2 5 AM EST 06/15/2025 9:38 AM EST us Meli TAMAYO LAB BLOOD BKR ORDERABLES Final R esult [address] [address] * Lipid Panel (06/15/2025 8:25 AM EST) Cholesterol 195 <200 mg/dL 06/15/2025 10:46 AM [facility] HDL 105 >=40 mg/dL 06/15/2025 10:46 AM [facility] Calculated LDL 82 <130 mg/dL 06/15/2025 10:46 AM [facility] Comment:LDL is calculated us ing the Iglesias-NIH equation (JESSICA Cardiol. 2019November 16;5(5):540-548). Non-HDL Cholesterol 90 mg/dL 06/15/2025 10:46 AM [facility] Comment:Guidelines suggest a non-HDL cholesterol goal 30 mg/dL higher than the patient-specific LDL cholesterol goal. Cardiac Risk Ratio 1.9 0.0 - 5.0 2024 10:46 AM [facility] Triglycerides 38 <=150 mg/dL 06/15/2025 10:46 AM [facility] Blood (Blood) 06/15/2025 8:2 5 AM EST 06/15/2025 9:38 AM EST Meli TAMAYO LAB BLOOD BKR ORDERABLES Final R esult Performing Organization Address City/[facility]/ZIP Co de Phone Number [address] [address] * Thyroid Stimulating Hormone (TSH) (06/15/2025 8:25 AM EST) TSH 3.92 0.40 - 7.50 uIU/mL 06/15/2025 10:46 AM EST [facility] Blood (Blood) 06/15/2025 8:2 5 AM EST 06/15/2025 9:38 AM EST Meli TAMAYO LAB BLOOD BKR ORDERABLES Final R esult Performing Organization Address City/[facility]/ZIP Co de Phone Number [address] [address] documented in this encounter Visit Diagnoses Diagnosis Disorientation, unspecified Other fatigue Hyperlipidemia, unspecified Type 2 diabetes mellitus without complications documented in this encounter Care Teams Armoring Machine Operator Relationship Specialty Start Date End Date Shasta Seth MD [address] [place] [phone] [email or web address] PCP - General Internal Medicine 06/22/24 documented as of this encounter Additional Source Comments The information contained in this document represents components of the legal health record. It is not the complete legal health record.[facility]
--- OUTSIDE RECORDS SUMMARY | 2025-06-28 22:08 | XMS_ITS | Data Portability ---
Author Organization [place] - 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 She is currently living at [facility] and has [facility] as support in addition to her family. Mind: Cognition: Cognitive Decline which may be multifactorial. Possible contributing factors include: cardiovascular - has HTN and CKD, depression/anxiety, ECT, medications Assessment: Maribell reports memory decline starting approximately five years ago, coinciding with a move from [place] to [place]. Recent cognitive testing revealed a score of [...] Jackson in February ( I believe at [facility]) - Would recommend Neuropsych assessment to get a sense of both strengths and weaknesses - which will help guide [facility] and family know where Maribell can safely [...] Dr. Butler, children and from [facility] care proxy: Yes Molst: Yes I personally [...] cognitive impairment. She is currently living at [facility] and has A as support in addition to her family. Cognitive Care Plan Elements: 1. Cognition: Cognitive Decline which may be multifactorial. Possible contributing factors include: cardiovascular - has HTN and CKD, depression/anxiety, ECT, medications Assessment: Maribell reports memory decline starting approximately five years ago, coinciding with a move from [place] to [place]. Recent cognitive testing revealed a score of [...] Rufino and Vivien, and receives assistance from [facility] staff with medications and housekeeping. Plan: - [...] use phone. Plan: Getting help from the [facility] Staff and [facility] 3. Stage of cognitive impairment: Mild Dementia Severity Rating Scale (DSRS) : 11- changes in memory, speech, orientation to time, place, ability to make decisions, social activity, personal care, occ control of urination, doesnt drive Plan: Continue to think about planning for the future based on stages and care recommendations Continue [facility] Living. 4. Decision-makin level rating scale global clinician judgement: may have been done in [place] (Able to make own decisions, not able [...] indicated. Administration: Gets help from [facility] program, [facility] staff 7. Safety: Safety Assessment Guide: a. Is the patient still driving? no b. Is the patient taking medications as prescribed? yes - [facility] program c. Are there concerns about [...] involve PCP, Dr. Butler, children and from [facility] Health care proxy: Yes - HCP inovked by Dr Chambers, [facility] Molst: Yes Checklist reviewed Plan (Preferences and [...] None recorded. Lab vitamin B12, serum 025 [facility] (Outpatient), [address] [place] [address], [address], 5 20:01:39 mma (methylma lonic acid), serum 025 [facility] (Outpatient), [address] [place] [address], [address], 5 20:01:39 folate, serum 025 [facility] (Outpatient), [address] [place] [address], [address], 5 20:01:39 TSH + free T4, serum 025 [facility] (Outpatient), [address] [place] [address], [address], 5 20:01:37 RPR (rapid plasma reagin), serum 025 [facility] (Outpatient), [address] [place] [address], [address], 5 20:01:39 Referral None recorded. Procedures None recorded. Surgeries None recorded. Imaging None recorded. Medication Orders None recorded. Patient TargetsNo targets recorded. Patient InstructionsNo instructions recorded. Reason for Referral None Reported. Problems Name Problem SNOMED Code Status Onset Date Resolution Date Notes Provider Name and Address Organization Details Recorded Time Depressive disorder 79275386 Active 2024 Gene July rodriguez [employer] [facility] 13:53:16 Kidney disease 73735826 Active 2024 [address]drigue[address] [employer] [facility] 13:53:43 Alzheimer's disease 18770359 Active 2024 Gene July [employer] 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 13:54:57 Basal cell carcinoma of face 789820943 Active 2024 Gene Mcdowell [employer] [facility] 13:55:20 Essential hypertension 13084194 Active 2024 Gene Mcdowell [employer] [facility] 13:55:36 Anxiety 31917116 Active 2024 Gene July [employer] [facility] 14:00:55 Cognitive function finding 754678075 Active 2024 Lexi Olmedo MD [address] [facility],[address], [address], [employer] 16:59:22 Major depression with psychotic features 058109067 Active 2024 Lexi Olmedo MD [address], [address], [place] 16:59:26 Problem Notes None recorded. Medical Equipment [...] Address Organization Details Last Updated DateTime 5 67022.0 1 g 23 kg/m2 160.02 cm 64 /min 100 % 104/54 mm[Hg] [facility] 5 14:18:49 Date Recorded Body height Body mass index (BMI) Body weight Oxygen saturation Heart rate Systolic And Diastolic Provider Name and Address Organization Details Last Updated DateTime 5 160.02 cm 23 kg/m2 76739.0 1 g 96.02 % 65 /min 104/58 mm[Hg] Vanda Villafana [facility] 5 13:09:20 Social History None recorded. [...] [facility] [address] [place] [address] 02/07/2025 13:56:34 02/07/2025 15:16:55 Anxiety 68053541 F41.9 11995 Social AnxietyAss essment: Patient reports experienci ng [...] ns Major depr ession with psychotic features 867594263 F32.3 [id number] Assessment : Patient has a longstandi ng [...] pines as you are. Cognitive function finding 091378932 R41.89 4603499 as above Essential hypertension 85273103 I10 71701 Goal SBP ~ 120-130. Today, BP 104/54Woul d monitor and may want to lower amlodipine if still low when home. 2602 MD [facility] [address] [place] [address] 05/08/2025 13:03:15 05/08/2025 21:17:32 Anxiety 78639822 F41.9 91733 Social Anxiet Plan:- Encourage gradual exposure to social situations - doing chair yoga which is great.- Discuss coping strategies for managing anxiety in social settings- Monitor impact of anxiety on daily activities and social interactio ns Major depr ession with psychotic features 186602496 F32.3 [id number] Assessment : Patient has a longstandi ng [...] pines as you are. Cognitive function finding 034498572 R41.89 3383115 as above Essential hypertension 98958066 I10 02911 Goal SBP ~ 120-130. Today, BP 104/58Woul [...] Guarantor Name 05/09/2025 2 [place] Maribell Caputoder [id number] Maribell Caputoder 05/09/2025 2 [place] Maribell Zayas [id number] Maribell Zayas 05/05/2025 1 [place]: NATIONAL GOVERNMENT SERVICES Maribell Zayas [id number] Maribell Zayas 05/09/2025 2 [facility]: [facility] SECURITY 65 PLAN (MEDICARE SUPPLEMENT) [id number] Maribell Zayas [id number] Maribell Zayas Notes Date Note Type Note [...] five years ago when she moved from [place] to [place]. The patient's cognitive changes have been ongoing for a few years. She describes her memory as not so good and mentions difficulty with recall and response time, though these have improved recently. Maribell expresses fear of falling, although she has not experienced any falls. She no longer drives, having stopped when she moved to [facility] about a year ago. Maribell has a history of depression and anxiety, for which she has been receiving treatment. She was hospitalized this past spring and underwent electroconvulsive therapy (ECT) at [place]. Currently, she receives monthly ECT treatments, which [...] expresses a desire to maintain her own [place] of friends and activities, as encouraged by [...] food prep and meds. Misael program at [facility] Supports:Help at home: Yes - M-F 12 [...] for the past year since moving to [facility].Was not getting lost Nutrition:Appetite: GoodHas food intake declined over the past 3 months? n/aWeight loss/gain: maybe gained a few lbsWould you like assistance with meals? Eats at [facility] Finances: Any concerns? Yes - she often [...] > 5 illnesses(HTN, DM, CA, chronic respiratorydisease, VT, CVA, arthritis (or RA), CKD, or liver disease): noWeight loss > 5% in the past 6 months: noScore: 0 (Robust: 0, Pre-frail: 1-2, Frail: >=3) Social History:Born/raised: [place], [place] - raised in [place] and [place]. 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 YesETOH: NeverConcern about amount of ETOH? NoTobacco: NoOther drugs: No- Spends time with her and eating. No hobbies, used to like to sew FH:Both parents in their 80's. Mother was getting dementia. Family History- Father: - Mother: - Brother: Younger, alive- Son (Rufino): Lives in [facility]- Daughter (Rebeka): Moving to [facility]- : Living at [facility], has memory problems Lexi Olmedo MD [address] [place] [address], [place], [address], [facility] - [facility] 02/18/2025 17:13:31 05/08/2025 text/html ROS as noted in the HPI Since last visit, NPV 7.23.25 Maribell is here for CCP with from [facility]. Since last visit, has been going to [...] watch television. She continues to live at [facility] where staff assists with medications and housekeeping. [...] to laugh a little. Lexi Olmedo MD [address] [place] [address], [phone], [facility] 05/08/2025 13:45:37 OBGyn Episode No OBEpisode recorded.
== END 2025-06-28 15:30 | disposition home or self-care (01) ==
LOC: HO.HSMS 14:30
PROVIDERS: PCP Internal Medicine; Visit Provider Psychiatry & Neurology Neurology
DX: G21.11 Neuroleptic induced parkinsonism (principal); T43.505A Adverse effect of unspecified antipsychotics and neuroleptics, initial encounter; R41.89 Other symptoms and signs involving cognitive functions and awareness
CPT/HCPCS: 99214; G2211

== ENCOUNTER → 2025-06-28 14:29 | Outpatient (BNVA) | payer MEDICARE, SELFPAY | PROVIDERS: PCP Internal Medicine; Visit Provider Psychiatry & Neurology Neurology | DX: G21.11 Neuroleptic induced parkinsonism (principal); T43.505A Adverse effect of unspecified antipsychotics and neuroleptics, initial encounter; R41.89 Other symptoms and signs involving cognitive functions and awareness | CPT/HCPCS: 99212 ==

== ENCOUNTER 2025-07-06 07:49 | Day surgery (SDC) | payer MEDICARE, SELFPAY ==
--- OUTSIDE RECORDS SUMMARY | 2025-06-07 07:57 | XMS_ITS | Encounter Summary ---
Author Organization [facility] Address [address] [place] [phone] Phone Care Team Providers Care Class B Truck Driver Name Role Phone Shasta Seth MD Primary Care Provider Encounter Details Date Type Department Care Team (Late st Contact Info) Description 06/28/2024 Procedure Pass [facility], Ct Scan - [facility] [address] [place] [address] Social History Tobacco Use Types Packs/Day Years [...] on filedocumented in this encounter Care Teams Class B Truck Driver Relationship Specialty Start Date End Date Shasta Seth MD [address] [place] [phone] [email or web address] PCP - General Internal Medicine 06/22/24 documented as of this encounter Additional Source Comments The information contained in this document represents components of the legal health record. It is not the complete legal health record.[facility]
--- OUTSIDE RECORDS SUMMARY | 2025-06-07 07:59 | XMS_ITS | Encounter Summary ---
Author Organization [facility] Address [address] [facility] [address] [place] [phone] Phone Care Team Providers Care Electrical Contacts Adjuster Name Role Phone Damaris Zambrano NP Primary Care Provider [phone] Griselda Lynne MD Primary Care Provider + Shasta Seth MD Primary Care Provider Encounter Details Date Type Department Care Team (Late st Contact Info) Description 05/09/2024 Procedure Pass [place] Admitting Dept - [facility] Department [address] [place] [address] Social History Tobacco Use Types Packs/Day Years [...] your housing situation today? I have harshad conley 04/26/2024 How many times have you move [...] on filedocumented in this encounter Care Teams Electrical Contacts Adjuster Relationship Specialty Start Date End Date Damaris Zambrano NP [address] [place] [address] PCP - General Nurse Practitioner 12/29/23 05/11/24 Griselda Lynne MD [address] [place] [phone] [email or web address] PCP - General Family Medicine 05/12/24 06/21/24 Shasta Seth MD [address] [place] [phone] [email or web address] PCP - General Internal Medicine 06/22/24 documented as of this encounter Additional Source Comments The information contained in this document represents components of the legal health record. It is not the complete legal health record.[facility]
--- OUTSIDE RECORDS SUMMARY | 2025-06-07 07:59 | XMS_ITS | Data Portability ---
Author Organization [place] - [employer] [facility], [facility] Address [address] [place] [address] Care Team Providers Care Beam Warper Name Role Phone MILAN SHELL Primary Care Provider [phone] Assessment Encounter Date Assessment Date Assessment LastModified by Organization Details LastModified Time 02/07/2025 02/07/2025 Assessment and p dalia based on Geriatric 5 M framework (Mind, Mobility, Multicomplexity, Medications, and Matters Most) This is an 84 y/o woman with PMH sig for htn, depression with psychosis getting monthly ECT, gait instability, seen for geriatric evaluation in light of cognitive impairment. She is currently living at [facility] and has [facility] as support in addition to her family. Mind: Cognition: Cognitive Decline which may be multifactorial. Possible contributing factors include: cardiovascular - has HTN and CKD, depression/anxiety, ECT, medications Assessment: Maribell reports memory decline starting approximately five years ago, coinciding with a move from [place] to [place]. Recent cognitive testing revealed a score of 24/30. The etiology of cognitive decline is unclear, but given the limited cardiovascular risk factors, Alzheimer's disease is a consideration. The patient is currently residing in assisted living and receiving full help with IADLs and medication management. Labs: Head imaging: Assessment: MOCA 8.1, done today 7. VIsuospatial/executi ve: 3/5 unable to copy cube or put hands in clock Namin/3 Attention: 6/6 Language: 3/3 Abstraction: 2/2 Delayed recall: 3/5; MIS = 06/02 Orientation: 6 Score: 24/30 Plan: - Currently on memantine - this may have been started in in patient psych; I am not clear why she is not on donepezil. - would ask Dr Butler, Psych/Neurology to weigh in. - Neurological evaluation scheduled with Dr. Jackson in February ( I believe at [facility]) - Would recommend Neuropsych assessment to get a sense of both strengths and weaknesses - which will help guide [facility] and family know where Maribell can safely have agency and where she needs supports. - Encourage participation in cognitive stimulation activities (e.g., chair yoga) - Maintain social engagement while respecting patient's anxiety about group settings - Reassess cognitive function at follow-up visits Mobility: Gait Abnormality and Fall Risk Assessment: Patient demonstrates a gait that leans slightly to the right with decreased arm movement and step length. She expresses fear of falling, although she denies any recent falls. The patient does not currently use assistive devices for ambulation. There was a recent dx of Parkinson's but may have been due to anti-psychotics. Plan: - Encourage participation in chair yoga to improve balance and strength - Monitor for changes in gait or balance - Reassess need for assistive devices at follow-up visits - F/u with Neurology as planned. Matters most: memory decline and worry about spouse ACP: Would like to involve PCP, Dr. Butler, children and from [facility] care proxy: Yes Molst: Yes I personally spent 150 minutes preparing for, caring for the patient (F2F and non-F2F), and finalizing the visit for this patient, which included discussion with patient and/or family about diagnosis, prognosis, recommendations, risk/benefits, risk reduction and education of above. Thank you for this interesting consult. Will f/u in 1-2 months for cognitive care plan per request. Not available 02/18/2025 17:11:59 05/08/2025 05/08/2025 Assessment and p dalia based on Geriatric 5 M framework (Mind, Mobility, Multicomplexity, Medications, and Matters Most) This is an 84 y/o woman with PMH sig for htn, depression with psychosis getting monthly ECT, gait instability, seen for geriatric evaluation in light of cognitive impairment. She is currently living at [facility] and has A as support in addition to her family. Cognitive Care Plan Elements: 1. Cognition: Cognitive Decline which may be multifactorial. Possible contributing factors include: cardiovascular - has HTN and CKD, depression/anxiety, ECT, medications Assessment: Maribell reports memory decline starting approximately five years ago, coinciding with a move from [place] to [place]. Recent cognitive testing revealed a score of 24/30. The etiology of cognitive decline is unclear, but given the limited cardiovascular risk factors, Alzheimer's disease is a consideration. The patient is currently residing in assisted living and receiving full help with IADLs and medication management. Labs: none in our chart Head imaging: none in our chart Assessment: MOCA 8.1, done 02.07.25 VIsuospatial/executi ve: 3/5 unable to copy cube or put hands in clock Namin/ Attention: 6 Language: 3/3 Abstraction: 08/20 Delayed recall: 09/20; MIS = 06/02 Orientation: 10/22 Score: 24/30 Today, Maribell reports fair memory that has been stable over the last 3 months. Currently taking memantine 7 mg and not on donepezil. Recent neurological evaluation with Dr. Moss was completed with results pending. Patient demonstrates good understanding of medical issues and medications. Has strong support system with family members Rufino and Vivien, and receives assistance from [facility] staff with medications and housekeeping. Plan: - Currently on memantine 7 mg ER - was taken off donepezil by Dr Butler - Neurological evaluation done with Dr. Haskins in February ; FABIAN scan done last week and f/u in June. - Follow-up with Dr. Moss in early June for neurological evaluation results - Consider neuropsychological assessment with Dr. Carpenter - Encourage participation in cognitive stimulation activities (e.g., chair yoga) - Maintain social engagement while respecting patient's anxiety about group settings - Reassess cognitive function at follow-up visits 2. Function: a. Parr ADL: 6 b. Sharon-Owen IADL: 1 - can use phone. Plan: Getting help from the [facility] Staff and [facility] 3. Stage of cognitive impairment: Mild Dementia Severity Rating Scale (DSRS) : 11- changes in memory, speech, orientation to time, place, ability to make decisions, social activity, personal care, occ control of urination, doesnt drive Plan: Continue to think about planning for the future based on stages and care recommendations Continue [facility] Living. 4. Decision-makin level rating scale global clinician judgement: may have been done in [place] (Able to make own decisions, not able to , uncertain/needs more evaluation) Plan: HCP already invoked at Dr Chambers's 5. Neuropsychiatric symptoms: depression, anxiety. Assessment tool: NPI-Q (12 items) Severity: 2/ Distress to caregiver: 4 Patient reports mood as okay with ability to laugh a little. Has not been attending therapy sessions as she has not made appointments. Continues to have psychosocial stressor with in memory care, whom she visits daily. Maintains active daily routine including exercise classes and social activities. Plan: - Continue working with Dr. Butler and will check on therapist. - Maribell asked if she would have to go to memory care unit - but at this time, she seems to be doing well, Independent in ADL and per [facility], managing well in Assisted Living. 6. Medication review and reconciliation: Medications reviewed and reconciled: Yes PIMs (Potentially Inappropriate Medications) identified: on olanzapine but indicated. Administration: Gets help from [facility] program, [facility] staff 7. Safety: Safety Assessment Guide: a. Is the patient still driving? no b. Is the patient taking medications as prescribed? yes - [facility] program c. Are there concerns about safety in the home? no d. Has the patient gotten lost in familiar places or wandered?no e. Are firearms present in the home? no f. Has the patient experienced unsteadiness or sustained falls? after ECT g. Does the patient live alone? Assisted living at Gait Abnormality and Fall Risk Assessment: Patient demonstrates a gait that leans slightly to the right with decreased arm movement and step length. She expresses fear of falling, although she denies any recent falls. The patient does not currently use assistive devices for ambulation. There was a recent dx of Parkinson's but may have been due to anti-psychotics. Plan: - Continued participation in chair yoga and exercise classes to improve balance and strength - F/u with PT and see about a cane - F/u with Neurology - just did FABIAN scan 8. Caregiver identification and needs assessment: Assessment tool: Stress thermometer: n/a ; ZARIT-12: n/a Plan: No stress noted at this time. 9. Advance care planning: Matters most: memory decline and worry about spouse ACP: Would like to involve PCP, Dr. Butler, children and from [facility] Health care proxy: Yes - HCP inovked by Dr Chambers, [facility] Molst: Yes Checklist reviewed Plan (Preferences and legal needs): HCP: yes MOLST: Not to my knowledge POA: yes Is there an emergency plan in case the caregiver is unable to provide care?: Patient and caregiver resources discussed and/or handed out More than 50% of this 70 minute visit was spent face to face with the patient and/or family caregiver, providing counseling, decision making, and coordination of care. Written plan discussed with and given to the patient and/or family caregiver. Written plan shared with PCP Will f/u as needed. I think she has a great support system in place. Not available 05/08/2025 13:43:41 Plan of Treatment Reminders Order Date Submit Date Provider Last Modified By Organization Details Last Modified Time Details Appointments None recorded. Lab vitamin B12, serum 025 [facility] (Out[facility]), [address] [place] [address], [id number], 5 20:01:39 mma (methylma lonic acid), serum 025 [facility] (Outpatient), [address] [place] [address], [address], 5 20:01:39 folate, serum 025 [facility] (Outpatient), [address] [place] [address], [address], 5 20:01:39 TSH + free T4, serum 025 [facility] (Outpatient), [address] [place] [address], [address], 5 20:01:37 RPR (rapid plasma reagin), serum 025 [facility] (Outpatient), [address] [place] [address], [address], 5 20:01:39 Referral None recorded. Procedures None recorded. Surgeries None recorded. Imaging None recorded. Medication Orders None recorded. Patient TargetsNo targets recorded. Patient InstructionsNo instructions recorded. Reason for Referral None Reported. 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,[address], [address], [place] 16:59:22 Major depression with psychotic features 262610033 Active 2024 Lexi Olmedo MD [address], [address], [place] 16:59:26 Problem Notes None recorded. Medical Equipment None Reported. Allergies No known drug allergies Medications Name Sig Start Date Stop Date Status Note LastModified by Organization Details LastModified Time venlafaxi ne ER 75 mg capsule,e xtended release 24 hr TAKE ONE CAPSULE BY MOUTH EVERY DAY 02/07 completed Not Available Not Available Not Available trazodone 50 mg tablet Take 1 tablet every day by oral route at bedtime. active Not Available Not Available No t Available atorvasta tin 10 mg tablet Take 1 tablet every day by oral route at bedtime. active Not Available Not Available No t Available senna 8.6 mg tablet Take 2 tablets every day by oral route at bedtime. active Not Available Not Available No t Available venlafaxi ne ER 150 mg capsule,e xtended release 24 hr TAKE 1 CAPSULE BY MOUTH DAILY 02/07 completed Not Available Not Available Not Available olanzapin e 10 mg tablet Take 1 tablet every day by oral route at bedtime. active Not Available Not Available No t Available amlodipin e 5 mg tablet Take 1 tablet every day by oral route. active Not Available Not Available No t Available aspirin 81 mg tablet,de layed release TAKE 1 TABLET BY MOUTH EVERY DAY active Not Available Not Available No t Available acetamino phen 500 mg tablet Take 1 tablet as needed by oral route. active Not Available Not Available No t Available docusate sodium 100 mg capsule Take 1 capsule every day by oral route. active Not Available Not Available No t Available aripipraz ole 5 mg tablet TAKE 1 TABLET BY MOUTH DAILY 02/07 completed Not Available Not Available Not Available memantine 7 mg capsule sprinkle, extended release 24hr Take 1 capsule every day by oral route for 7 days. active Not Available Not Available No t Available vortioxet ine 10 mg tablet Take 1 tablet every day by oral route. active Not Available Not Available No t Available brexpipra zole 1 mg tablet Take 1 tablet every day by oral route. 05/08 completed stopped in November Not Available Not Available Not Available aspirin 81 mg capsule Take 1 capsule every day by oral route. 02/07 completed Not Available Not Available Not Available Vitals Date Recorded Body weight Body mass index (BMI) Body height Heart rate Oxygen saturation Systolic And Diastolic Provider Name and Address Organization Details Last Updated DateTime 5 41793.0 1 g 23 kg/m2 160.02 cm 64 /min 100 % 104/54 mm[Hg] [facility] 5 14:18:49 Date Recorded Body height Body mass index (BMI) Body weight Oxygen saturation Heart rate Systolic And Diastolic Provider Name and Address Organization Details Last Updated DateTime 5 160.02 cm 23 kg/m2 97673.0 1 g 96.02 % 65 /min 104/58 mm[Hg] Vanda Villafana [facility] [employer] [facility] 5 13:09:20 Social History None recorded. Functional Status None recorded. Mental Status None recorded. Family History Nothing Reported. Medical History No medical history recorded. Gynecological HistoryNo gynecological history recorded. Obstetrics History GPAL:G 0 P 0 0 0 0 Past Encounters Encounter ID Performer Location Encounter Start Date Encounter Closed Date Diagnosis/Indication Diagnosis SNOMED-CT Code Diagnosis ICD10 Code Diagnosis IMO Codes Diagnosis Note [id number] MD [facility] [address] [address] [place] [address] 02/07/2025 13:56:34 02/07/2025 15:16:55 Anxiety 97957816 F41.9 39326 Social AnxietyAss essment: Patient reports experienci ng social anxiety, particular ly about sitting with others during meals in the assisted living facility. This anxiety may impact her social engagement and overall quality of life. GAD7: 3 Plan:- Encourage gradual exposure to social situations , starting with comfortabl e activities like chair yoga- Discuss coping strategies for managing anxiety in social settings- Monitor impact of anxiety on daily activities and social interactio ns Major depr ession with psychotic features 696958189 F32.3 [id number] Assessment : Patient has a longstandi ng history of depression and psychosis, requiring multiple psychiatri c interventi ons. She was recently hospitaliz ed for a month due to a psychotic episode, which was initially misdiagnos ed as Parkinson' s disease. The patient has been receiving ECT for many years, currently on a monthly basis. She is followed by Dr. Chambers for psychiatri c care and is currently on antidepres jonathon and antipsycho tic medication s. PHQ9: 5 Plan:- Continue current psychiatri c medication s per Psych- Trintellix - Olanzapine - Rexulti (brexpipra zole)- Continue monthly ECT treatments - Follow up with Dr. Chambers/Evelyn beasley for ongoing psychiatri c care- Consider medication adjustment , potentiall y reducing antipsycho tic regimen over time- Avoid benzodiaze pines as you are. Cognitive function finding 766684522 R41.89 4397196 as above Essential hypertension 36555116 I10 80802 Goal SBP ~ 120-130. Today, BP 104/54Woul d monitor and may want to lower amlodipine if still low when home. [id number] MD [facility] [address] [place] [address] 05/08/2025 13:03:15 05/08/2025 21:17:32 Anxiety 18010546 F41.9 03377 Social Anxiet Plan:- Encourage gradual exposure to social situations - doing chair yoga which is great.- Discuss coping strategies for managing anxiety in social settings- Monitor impact of anxiety on daily activities and social interactio ns Major depr ession with psychotic features 290575790 F32.3 7355747009 Assessment : Patient has a longstandi ng history of depression and psychosis, requiring multiple psychiatri c interventi ons. She was hospitaliz ed for in the spring 2023 for a month due to a psychotic episode, which was initially misdiagnos ed as Parkinson' s disease. The patient has been receiving ECT for many years, currently on a monthly basis. She was followed by Dr. Chambers, Dr Butler for psychiatri c care and is currently on antidepres jonathon and antipsycho tic medication s. Plan:- Continue current psychiatri c medication s per Psych- Trintellix - Olanzapine - Continue monthly ECT treatments - Follow up with Dr. Chambers/Evelyn beasley for ongoing psychiatri c care- Consider medication adjustment , potentiall y reducing antipsycho tic regimen over time- Avoid benzodiaze pines as you are. Cognitive function finding 659395136 R41.89 5006128 as above Essential hypertension 02884287 I10 40831 Goal SBP ~ 120-130. Today, BP 104/58Woul d monitor and may want to lower amlodipine if still low when home. Health Concerns Section Related Observation LastModified by Organization Detai ls LastModified Time None Recorded Concern Status LastModified by Organization Details LastModified Time None Recorded Advance Directives Directive None Recorded Payers Insurance Date Sequence Insurance Name Policy Number Policy [place] Covered Member ID [place] Member ID Guarantor Name 05/09/2025 2 [place] Maribell Caputoder [id number] Maribell Caputoder 05/09/2025 2 [place] [employer] Maribell Zayas [id number] Maribell Zayas 05/05/2025 1 [place] Maribell Zayas [id number] Maribell Zayas 05/09/2025 2 [facility] SECURITY 65 PLAN (MEDICARE SUPPLEMENT) [id number] Maribell Zayas [id number] Maribell Zayas Notes Date Note Type Note Provider Name and Address Organization Details Recorded Time 02/07/2025 text/html PCP: Dr Shell Referred by: PCP & [facility] Person to contact for follow up visits: LUIS A Gonzalez Goals for visit: Family wants to know how to give Maribell as much agency as possible. Problems or specific concerns for this visit: Memory supports Chief ComplaintMemory decline for about five years, depression with history of hospitalization and ECT treatment, fear of falling, social anxiety History of Present Illness Maribell presents for an initial geriatric evaluation. She reports a decline in memory function that began approximately five years ago when she moved from [place] to [place]. The patient's cognitive changes have been ongoing for a few years. She describes her memory as not so good and mentions difficulty with recall and response time, though these have improved recently. Maribell expresses fear of falling, although she has not experienced any falls. She no longer drives, having stopped when she moved to [facility] about a year ago. Maribell has a history of depression and anxiety, for which she has been receiving treatment. She was hospitalized this past spring and underwent electroconvulsive therapy (ECT) at [facility]. Currently, she receives monthly ECT treatments, which she has been receiving for many years. She is also seeing a therapist and is prescribed Trintellix, olanzapine, and Rexulti (brexpiprazole) for her psychiatric conditions. The patient experienced a recent hospitalization triggered by an encounter where she was told she had Parkinson's disease based on a scan. This led to what was described as a psychotic episode, resulting in a month-long hospitalization where she was weaned off some antipsychotics and started on her current medication regimen. Maribell reports improvement in her recall, response time, and arm movement since this adjustment. In terms of daily functioning, Maribell resides in assisted living and receives full help with instrumental activities of daily living (IADLs) and medication management. She participates in meals and activities at the facility, including chair yoga. However, she mentions experiencing social anxiety about sitting with people at lunch. Maribell expresses a desire to maintain her own holy cross of friends and activities, as encouraged by her children. Maribell's medical history includes a fractured ankle in May, leading to a two-week hospitalization in June. She is currently taking memantine, in addition to her psychiatric medications. She does not use a walker or cane but leans slightly to the right when walking, with decreased arm movement and step. Medical History includes:- Depression and psychosis, longstanding history- Hospitalization for psychiatric reasons in spring, received ECT- Cognitive decline starting approximately 5 years ago- Ankle fracture in May, resulting in hospitalization for a couple of weeks in June- Parkinson's disease diagnosis (later questioned) Medications and Supplements include:- Trintellix- Rexulti (brexpiprazole)- Memantine Recent ED visits/hospitalization s: recent hospitalization for depressive psychosis event November 2024had ankle fracture in Jun 11 Function:ADL: (bathing, dressing, toileting, transferring, continence, feeding)Bathing - occasional; all other independentIADL: ( Telephone, shopping, food preparation, housekeeping, laundry, Transportation, Medications, Finances)Total assistance with finances, partial with shopping, food prep and meds. Misael program at [facility] Supports:Help at home: Yes - M-F 12 or 1 to 3:30Who provides the care? [facility] SolutionsWhat tasks do they help with? shopping, walks, activitiesDo you provide care for a family member?* bi General information about you: Mobility:Assistive device: NoAny falls? YesIf yes, any injuries? left ankle fractureAre you afraid of falling? Yes Sleep:How would you describe your sleep? well (options: good, fair, poor)Do you snore? says that she does (options: yes, no, don't know)Have you ever been tested for sleep apnea? No (yes, no, don't know) Driving?: Doesn't driveAny concerns? hasnt driven for the past year since moving to [facility].Was not getting lost Nutrition:Appetite: GoodHas food intake declined over the past 3 months? n/aWeight loss/gain: maybe gained a few lbsWould you like assistance with meals? Eats at [facility] Finances: Any concerns? Yes - she often questions how much money they have Health Maintenance:Overall health: No answerDepression/sadne ss: YesAnxiety: YesMemory loss: YesAre you or others concerned about your memory?: YesFeels safe at home: YesHearing Test: - good enough Eye exam: YesDentist: YesHave you decreased the amt of time you spend with family/friends in the past year?: No answer Physical fitness: Frailty Screening:Fatigue: NoResistance (able to climb a flight of stairs): YesAerobic (able to walk a block): YesPresence of > 5 illnesses(HTN, DM, CA, chronic respiratorydisease, PR, CVA, arthritis (or RA), CKD, or liver disease): noWeight loss > 5% in the past 6 months: noScore: 0 (Robust: 0, Pre-frail: 1-2, Frail: >=3) Social History:Born/raised: [place], [place] - raised in [place] and [place]. 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 YesETOH: NeverConcern about amount of ETOH? NoTobacco: NoOther drugs: No- Spends time with her and eating. No hobbies, used to like to sew FH:Both parents in their 80's. Mother was getting dementia. Family History- Father: - Mother: - Brother: Younger, alive- Son (Rufino): Lives in [facility]- Daughter (Rebeka): Moving to [facility]- : Living at [facility], has memory problems Lexi Olmedo MD [address] [place] [address], [place], [address], [facility] 02/18/2025 17:13:31 05/08/2025 text/html ROS as noted in the HPI Since last visit, NPV 7.23.25 Maribell is here for CCP with from [facility]. Since last visit, has been going to exercise classes, stretching and weights and chair yoga. History of Present Illness Maribell presents for routine follow-up of her memory concerns. She reports feeling okay overall both physically and mentally. She continues to participate in regular exercise classes including stretching, weights, and chair yoga after breakfast. She denies any falls or hospital visits since her last appointment. Regarding her cognitive status, she describes her memory as fair and reports it has been stable over the last 3 months. She is currently taking memantine 7 mg and is not on donepezil. She has not been attending therapy as she has not made an appointment. The patient reports some concern about her gait, noting that sometimes she feels like she is leaning forward when walking, which was also noted 3 months ago. She does not use a cane and is not currently working with physical therapy. She denies any recent falls. Her mood is described as okay and she reports being able to laugh a little. Her main source of worry is her , who is currently in memory care. She maintains a daily routine of visiting him every day for dinner in the community after spending her day with exercise, lunch, and email activities. She reports sleeping well and does not watch television. She continues to live at [facility] where staff assists with medications and housekeeping. She has a strong support system including Rufino and Vivien. She reports being pretty good at understanding medical issues and medications.Review of SystemsMusculoskeletal : Positive for feeling like leaning forward when walking, negative for falls.Neurological: Positive for fair memory (stable over last 3 months).Psychiatric: Positive for okay mood with ability to laugh a little. Lexi Olmedo MD [address] [place] [address], [phone], [facility] 05/08/2025 13:45:37 OBGyn Episode No OBEpisode recorded.
--- OUTSIDE RECORDS SUMMARY | 2025-06-07 07:59 | XMS_ITS | Clinical Summary ---
Author Organization [facility] Address [address] [employer] [address] Phone Care Team Providers Care Intensive Care Medicine Specialist Name Role Phone Shasta Seth MD Primary Care Provider Allergies No known active allergies Medications ARIPiprazole (ABILIFY) 5 MG tablet Take 5 mg by mouth daily. 04/04/2024 Active venlafaxine (EFFEXOR-XR) 150 MG 24 hr capsule Take 150 mg by mouth daily. 04/04/2024 Active polyethylene glycol (MIRALAX) 17 gram packet Take 17 g by mouth daily as needed for mild constipation. 04/29/2024 Active aspirin 81 MG EC tablet Take 1 tablet (81 mg total) by mouth 2 (two) times a day for 28 days. 05/09/2024 Active traZODone (DESYREL) 50 MG tablet TAKE 1 TABLET BY MOUTH AT BEDTIME. MAY REPEAT 1 TIME NEEDED FOR INSOMNIA 06/08/2024 Active memantine (NAMENDA XR) 7 mg 24 hr sprinkle capsule 07/14/2024 Active Active Problems Problem Noted Date Diagnosed Date Status post ORIF of fracture of ankle 07/01/2024 Fever 04/28/2024 Assessment & Plan (04/29/2024 7:48 AM EDT): Patient had isolated fever of 100.9 on 04/27 no symptoms of infection. No leukocytosis, hypotension or tachycardia UA with no pyuria, no chest symptoms, no hypoxia No further fevers Weakness of both upper extremities 04/27/2024 Assessment & Plan (04/29/2024 9:28 AM EDT): See prior note Concern for possible movement disorder -[place] [place] by Cesario Krause -Obtaining knee scooter for mobilization Closed bimalleolar fracture of left ankle 2023 Assessment & Plan (04/29/2024 10:11 AM EDT): X-ray left ankle showed transverse fractures of the medial malleolus with mild displacement, cominuted distal fracture of the fibula with a angulated fracture fragment extending laterally. Moderate medial and lateral soft tissue swelling. Talar dome intact. Widening of ankle mortise concerning for ankle instability. S/p [facility] fall Prior team discussed case with Dr. Frank, she is aware of patient status post splint in ED. No plans for surgery. Patient is nonweightbearing to left lower leg. She should be seen in follow-up clinic next week with Ortho, may require surgery at that time if no improvement. -Orthopedics states: Needs follow-up 1 to 2 weeks following discharge -Pain regimen with as needed -patient has not required oxycodone or ibuprofen -Prophylactic Colace, senna -PT/OT; recommending rehab Full code status 04/26/2024 Assessment & Plan (04/29/2024 7:46 AM EDT): See prior notes Closed bimalleolar avulsion fracture of left ank le 04/26/2024 Social History Tobacco Use Types Packs/Day Years Used Date Smoking Tobacco: Never Smokeless Tobacco: Never Tobacco Cessation:Counseling Given: Not Answered Alcohol Use Standard Drinks/Week Comments Never 0 [...] PM EDT Sexual Orientation Not on file Last Filed Vital Signs Vital Sign Reading Time Taken Comments Blood Pressure 134/66 05/09/2024 3:20 PM EDT Pulse 69 05/09/2024 2:50 PM EDT Temperature 36.3 C (97.3 F) 05/09/2024 3:20 PM EDT Respiratory Rate 16 05/09/2024 2:50 PM EDT Oxygen Saturation 97% 05/09/2024 3:20 PM EDT Inhaled Oxygen Concentration - - Weight 61.2 kg (135 lb) 05/09/2024 11:30 AM EDT Height 160 cm (5' 3 ) 05/09/2024 11:30 AM EDT Body Mass Index 23.91 05/09/2024 11:30 AM EDT Plan of Treatment Health Maintenance Due Date Last Done Comments BLOOD PRESSURE 1942 DEPRESSION SCREENING 1954 DIABETIC EYE EXAM 09/28/2024 URINE MICROALBUMIN/CREATININE RATIO 09/28/2024 INFLUENZA VACCINE (#1) 2025 , 04/13/2022, 04/07/2021, Additional history exists COVID-19 VACCINE ( season) 2025 05/08/2023, 04/13/2022, 12/09/2021, Additional history exists HEMOGLOBIN A1C 03/31/2025 09/28/2024 LIPID PANEL 06/29/2025 06/29/2024 Adult Td,Tdap Booster 03/07/2030 03/07/2020 ZOSTER VACCINES Completed 05/20/2020, 03/20/2020 RSV VACCINE Completed 05/08/2023 PNEUMOCOCCAL VACCINES (50+ years) Completed 07/23/2023, 03/07/2020 OSTEOPOROSIS SCREENING INITIAL (ONE-TIME) Completed 10/11/2024 HEPATITIS A VACCINES Aged Out No long er eligible based on patient's age to complete this topic HIB VACCINES Aged Out No longer eligi ble based on patient's age to complete this topic MENINGOCOCCAL VACCINES (ACWY) Aged Out No longer eligible based on patient's age to complete this topic MENINGOCOCCAL VACCINES (B) Aged Out N o longer eligible based on patient's age to complete this topic Medical Devices Implanted Type Area Cable Television Program Director Device Identifier Shelf Expiration Date Model / Serial / Lot Screw Spine 3.5x10mm Plate [employer] Locking - [id number] Implanted:Qty: 1 on 05/09/2024 by Kaz Kelly MD at [facility] Left: Ankle [employer] [id number] 10 / / Screw Spine 3.5x12mm Plate R3con Locking - [id number] Implanted:Qty: 1 on 05/09/2024 by Kaz Kelly MD at [facility] Left: Ankle [employer] [id number] 12 / / Screw Plate 3.5x14mm R3con Locking - [id number] Implanted:Qty: 1 on 05/09/2024 by Kaz Kelly MD at [facility] Left: Ankle [employer] [id number] 14 / / Screw Spine 3.5x16mm Plate R3con Locking - [id number] Implanted:Qty: 2 on 05/09/2024 by Kaz Kelly MD at [facility] Left: Ankle [employer] [id number] 16 / / Screw 3.5x10mm Small R3con Non Locking Plate [employer] - [id number] Implanted:Qty: 1 on 05/09/2024 by Kaz Kelly MD at [facility] Left: Ankle [employer] [id number] 10 / / Screw Plate 3.5x12mm Nonlocking R3con - [id number] Implanted:Qty: 1 on 05/09/2024 by Kaz Kelly MD at [facility] Left: Ankle [employer] [id number] 12 / / Bone Plate Lt Fusion Lateral Ankle Tt - [id number] Implanted:Qty: 1 on 05/09/2024 by Kaz Kelly MD at [facility] Left: Ankle [employer] [id number] 09 / / Screw Mini Monster Cannulated Long Threaded Headed 4x44mm - [id number] Implanted:Qty: 2 on 05/09/2024 by Kaz Kelly MD at [facility] Left: Ankle [employer] [id number] 4L / / K-Wire Bone 1.3x414rx Smooth Single Ended - [id number] Implanted:Qty: 2 on 05/09/2024 by Kaz Kelly MD at [facility] Left: Ankle [employer] [id number] 15 / / Procedures Procedure Name Priority Date/Time Associated Diagnosis Comments BD DXA AXIAL (SPINE) WITH HIP Routine 10/11/2024 8:34 AM EDT Asymptomatic menopausal state HEMOGLOBIN A1C Routine 09/28/2024 11:13 AM EDT 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 Narrative 10/12/2024 8:26 AM EDT Referred By: VIVIANA SANTANA Indications: Postmenopausal Scanner: [employer] with serial# of [id number] located at [facility] Bone Density Scan (DXA) 10/11/24 Details of prior DXA scans are available by clicking View Full Report BMD T- Z- Skeletal Site gm/cm2 score score BMD Change Since Prior Scan ------ ----- ----- PA Spine (L1-L4) 1.025 -0.20 2.60 N/A Total Hip (Left) 0.762 -1.50 0.70 N/A Femoral Neck (Left) 0.599 -2.30 0.10 N/A Total Hip (Right) 0.748 -1.60 0.60 N/A Femoral Neck (Right) 0.634 -1.90 0.50 N/A ------ ----- ----- * Denotes significant change when >= 0.022 g/cm2 for the spine, 0.027 g/cm2 for the total hip, 0.029 g/cm2 for the femoral neck. Interpretation: Osteopenia. Technical Quality: The PA Spine scan was of marginal quality because of scoliosis (which can decrease or increase BMD) and sclerosis or fracture (which increase BMD). FRAX: Based on FRAX(r) 3.6 ([place] White female), this patient's likelihood of hip fracture is 7.2% and major osteoporotic fracture is 23.4% over the next 10 years. The patient reported the following risks of fracture on a questionnaire: previous fracture as an adult. Reviewed By: Kaz Batista MD on 10/12/2024 08:26:30 Additional Information: -World Health Organization criteria classify adults based on lowest T-score at PA spine, hip or forearm: Normal (T-score >= -1.0), Osteopenia (T-score between -1 and -2.5), or Osteoporosis (T-score <= -2.5). At [facility], T-scores are compared to peak bone density of a young white gender matched reference population. - For premenopausal women and men under the age of 50, Z-scores (comparison to age, gender, and ethnicity matched reference population) are used: Above expected range for age (Z-score >= 2.0), Within expected range of age (Z-score 1.9 to -1.9), or Below expected range for age (Z-score <= -2.0). - The Bone Health and Osteoporosis Foundation recommends that treatment be considered in men aged more than 50 years and in postmenopausal women with ANY of the following: Prior hip or vertebral fractures; T-score of <= -2.5 at the PA spine or hip; or 10 year fracture probability by FRAX of >= 3% for the hip or >= 20% for major osteoporotic fracture. - The FRAX algorithm (https://www.brijesh.ac.uk/FRAX/tool.aspx) is designed to predict 10-year fracture risk in treatment-naive adults between the ages of 40 and 90. It is not intended to be used in those receiving pharmacologic osteoporosis treatment. - The TBS is derived from the texture of the DXA spine image and has been shown to be related to bone microarchitecture and fracture risk. This data provides information independent of BMD value. It adds to fracture risk assessment with a FRAX adjusted for TBS score. If your patient had a TBS and qualified for a FRAX score, the reported FRAX score has been adjusted for TBS. TBS Score Interpretation 1.350 and greater Normal bone microarchitecture 1.200 to 1.350 Partially degraded bone microarchitecture 1.200 and less Degraded bone microarchitecture - Including race/ethnicity in the generation of T- or Z-scores or in the FRAX calculation is complicated, and currently undergoing active review to ensure that we can give patients the best information on their risk of fracture. - Some prior studies may not be compatible with our comparison software. - Click on View Full Report to see subsequent pages with images and prior bone density results. Procedure Note Kaz Batista MD - 10/12/2024 Referred By: VIVIANA SANTANA Indications: Postmenopausal Scanner: [employer] with serial# of [id number] located at [facility] Bone Density Scan (DXA) 10/11/24 Details of prior DXA scans are available by clicking View Full Report BMD T- Z- Skeletal Site gm/cm2 score score BMD Change Since Prior Scan ------ ----- PA Spine (L1-L4) 1.025 -0.20 2.60 N/A Total Hip (Left) 0.762 -1.50 0.70 N/A Femoral Neck (Left) 0.599 -2.30 0.10 N/A Total Hip (Right) 0.748 -1.60 0.60 N/A Femoral Neck (Right) 0.634 -1.90 0.50 N/A ------ ----- * Denotes significant change when >= 0.022 g/cm2 for the spine, 0.027g/cm2 for the total hip, 0.029 g/cm2 for the femoral neck. Interpretation: Osteopenia. Technical Quality: The PA Spine scan was of marginal quality because of scoliosis (which can decrease or increase BMD) and sclerosis or fracture (which increase BMD). FRAX: Based on FRAX(r) 3.6 ([place] White female), this patient's likelihoodof hip fracture is 7.2% and major osteoporotic fracture is 23.4% over thenext 10 years. The patient reported the following risks of fracture on a questionnaire: previous fracture as an adult. Reviewed By: Kaz Batista MD on 10/12/2024 08:26:30 Additional Information: -World Health Organization criteria classify adults based on lowestT-score at PA spine, hip or forearm: Normal (T-score >= -1.0), Osteopenia (T-score between -1 and -2.5), or Osteoporosis (T-score <= -2.5). At [facility], T-scores are compared to peak bone density of a young white gender matched reference population. - For premenopausal women and men under the age of 50, Z-scores(comparison to age, gender, and ethnicity matched reference population) are used:Above expected range for age (Z-score >= 2.0), Within expected range of age (Z-score 1.9 to -1.9), or Below expected range for age (Z-score <= -2.0). - The Bone Health and Osteoporosis Foundation recommends that treatment be considered in men aged more than 50 years and in postmenopausal women with ANY of the following: Prior hip or vertebral fractures; T-score of <= -2.5 at the PA spine or hip; or 10 year fracture probability by FRAX of >= 3%for the hip or >= 20% for major osteoporotic fracture. - The FRAX algorithm (https://www.brijesh.ac.uk/FRAX/tool.aspx) is designed to predict 10-year fracture risk in treatment-naive adultsbetween the ages of 40 and 90. It is not intended to be used in those receiving pharmacologic osteoporosis treatment. - The TBS is derived from the texture of the DXA spine image and has been shown to be related to bone microarchitecture and fracture risk. This data provides information independent of BMD value. It adds to fracture risk assessment with a FRAX adjusted for TBS score. If your patient had a TBSand qualified for a FRAX score, the reported FRAX score has been adjusted for TBS. TBS Score Interpretation 1.350 and greater Normal bone microarchitecture 1.200 to 1.350 Partially degraded bone microarchitecture 1.200 and less Degraded bone microarchitecture - Including race/ethnicity in the generation of T- or Z-scores or in the FRAX calculation is complicated, and currently undergoing active review to ensure that we can give patients the best information on their risk of fracture. - Some prior studies may not be compatible with our comparison software. - Click on View Full Report to see subsequent pages with images andprior bone density results. IMPRESSION: Interpretation: Osteopenia. us Viviana TAMAYO IMG BD BONE DENSITY DEXA F inal Result * Hemoglobin A1c (09/28/2024 11:13 AM EDT) HEMOGLOBIN A1C 5.7 4.3 - 5.8 % [facility] 09/28/2024 11:1 3 AM EDT 09/28/2024 12:38 PM EDT us Shasta Messina MD LAB BLOOD BKR ORDERABL ES Final Result [facility] [address] [place] [address] * (ABNORMAL) Lipid panel (06/29/2024 11:15 AM EST) HDL 100 mg/dL [facility] Comment: Interpretation <40 mg/dL: Low HDL cholesterol (major risk factor for CHD) Greater than or equal to 60 mg/dL: High HDL cholesterol ( negative risk factor for CHD) HDL - cholesterol is affected by a number of factors, e.g. smoking, excerise, hormones, sex and age. CHOLESTEROL 238 0 - 240 mg/dL [facility] TRIGLYCERIDES 55 30 - 160 mg/dL [facility] LDL 127 50 - 129 mg/dL [facility] Comment: LDL levels in terms of risk for coronary heart disease: <100 mg/dL: Optimal 100-129 mg/dL: Near or above optimal 130-159 mg/dL: Borderline high 160-189 mg/dL: High >190 mg/dL: Very High CARDIAC RISK RATIO 2.4(L) 3.3 - 4.4 [facility] Blood 06/29/2024 11:1 5 AM EST 06/29/2024 12:18 PM EST us May A Sumaya Messina MD LAB BLOOD BKR ORDERABL ES Final Result [address] [address] from Last 3 Months or Most Recently Relevant to Health Maintenance [place] [id number] MEDICARE PART A & B MEDICARE PART A & B MEDICARE PART A & B Advance Directives For more information, please contact: [phone] (9AM - 5PM [facility], Wednesday-Wednesday) Documents on File Type Date Recorded Patient Resistor Testing Machine Operator Expl anation MOLST 05/04/2024 4:47 PM Durable Power of Qa Lead 04/28/2024 4:39 PM Healthcare Proxy 04/26/2024 Healthcare Proxy Durable Power of Qa Lead 04/26/2024 Durable Power of Qa Lead * Full Code (Latest Code Status on File) Date Activated Date Inactivated Comments 04/26/2024 7:47 PM Question Answer Comments Code Status Confirmed With: Patient Care Teams Intensive Care Medicine Specialist Relationship Specialty Start Date End Date Awkal Matisewski, May A, MD [address] [place] [id number] [email or web address] PCP - General Internal Medicine 06/22/24 Additional Source Comments The information contained in this document represents components of the legal health record. It is not the complete legal health record.[facility]
--- OUTSIDE RECORDS SUMMARY | 2025-06-07 07:59 | XMS_ITS | Encounter Summary ---
Author Organization [facility] Address [address] [address] Phone Care Team Providers Care Air Export Coordinator Name Role Phone Damaris Zambrano NP Primary Care Provider [phone] Griselda Lynne MD Primary Care Provider + Shasta Seth MD Primary Care Provider Encounter Details Date Type Department Care Team (Latest Contact Info) Description 11/26/2023 Transcribe Orders Virtual Department [address] [place] [address] Viviana Santana PA [address] [place] [address] Asymptomatic menopausal state (Primary Dx) Social History Tobacco Use Types Packs/Day Years Used Date Smoking Tobacco: Never Assessed Comments Unknown Sex and Gender Information Value Date Recorded Sex Assigned at Female 04/26/2024 3:18 PM EDT Legal Sex Female 11:39 AM EDT Gender Identity Female 04/26/2024 3:18 PM EDT Sexual Orientation Not on file documented as of this encounter Plan of Treatment Not on file documented as of this encounter Results * BD DXA AXIAL (SPINE) WITH HIP (10/11/2024 8:34 AM EDT) Anatomical Region Laterality Modality Bone Density Bone Density 10/11/2024 8:22 AM EDT Impressions 10/12/2024 8:26 AM EDT Interpretation: Osteopenia. Narrative 10/12/2024 8:26 AM EDT Referred By: VIVIANA SANTANA Indications: Postmenopausal Scanner: [employer] A with serial# of [id number] located at [facility] Bone Density Scan (DXA) 10/11/24 Details of [...] previous fracture as an adult. Reviewed By: Kza Batista MD on 10/12/2024 08:26:30 Additional Information: -World Health Organization criteria classify adults based on lowest T-score at PA spine, hip or forearm: Normal (T-score >= -1.0), Osteopenia (T-score between -1 and -2.5), or Osteoporosis (T-score <= -2.5). At [facility], T-scores are compared to peak bone density [...] Referred By: VIVIANA SANTANA Indications: Postmenopausal Scanner: [employer] A with serial# of [id number] located at [facility] Bone Density Scan (DXA) 10/11/24 Details of [...] -2.5), or Osteoporosis (T-score <= -2.5). At [facility], T-scores are compared to peak bone density [...] andprior bone density results. IMPRESSION: Interpretation: Osteopenia. Viviana TAMAYO IMG BD BONE DENSITY DEXA F inal Result documented in this encounter Visit Diagnoses Diagnosis Asymptomatic menopausal state- Primary Asymptomatic menopausal state documented in this encounter Care Teams Air Export Coordinator Relationship Specialty Start Date End Date Damaris Zambrano NP [address] [place] [address] PCP - General Nurse Practitioner 12/29/23 05/11/24 Griselda Lynne MD [address] [place] [address] [email or web address] PCP - General Family Medicine 05/12/24 06/21/24 Shasta Seth MD [address] [place] [address] [email or web address] PCP - General Internal Medicine 06/22/24 documented as of this encounter Additional Source Comments The information contained in this document represents components of the legal health record. It is not the complete legal health record.[facility]
--- OUTSIDE RECORDS SUMMARY | 2025-06-07 07:59 | XMS_ITS | Continuity of Care Document ---
Author Organization [place] - [employer], [facility] Address [address] [facility] [address] [place] [address] Care Team Providers Care Cream Cheese Maker Name Role Phone SHAHNAZKIANNA MILAN Primary Care Provider Assessment Encounter Date Assessment Date Assessment LastModified by Organization Details LastModified Time 05/08/2025 05/08/2025 Assessment and p dalia based on Geriatric 5 M framework (Mind, Mobility, Multicomplexity, Medications, and Matters Most) This is an 84 y/o woman with PMH sig for htn, depression with psychosis getting monthly ECT, gait instability, seen for geriatric evaluation in light of cognitive impairment. She is currently living at [facility] and has [facility] as support in addition to her family. Cognitive Care Plan Elements: 1. Cognition: Cognitive Decline which may be multifactorial. Possible contributing factors include: cardiovascular - has HTN and CKD, depression/anxiety, ECT, medications Assessment: Maribell reports memory decline starting approximately five years ago, coinciding with a move from [place] to [place]. Recent cognitive testing revealed a score of 24/30. The etiology of cognitive decline is unclear, but given the limited cardiovascular risk factors, Alzheimer's disease is a consideration. The patient is currently residing in assisted living and receiving full help with IADLs and medication management. Labs: none in our chart Head imaging: none in our chart Assessment: MOCA 8.1, done 7.. VIsuospatial/executi ve: 3/5 unable to copy cube or put hands in clock Namin/3 Attention: 6/6 Language: 3/3 Abstraction: 2/2 Delayed recall: 3/5; MIS = 15 Orientation: /6 Score: 24/30 Today, Maribell reports fair memory that has been stable over the last 3 months. Currently taking memantine 7 mg and not on donepezil. Recent neurological evaluation with Dr. Moss was completed with results pending. Patient demonstrates good understanding of medical issues and medications. Has strong support system with family members Rufino and Vivien, and receives assistance from [facility] staff with medications and housekeeping. Plan: - [...] 2. Function: a. [place] ADL: 6 b. [place] IADL: 1 - can use phone. Plan: Getting help from the [facility] Staff and [facility] 3. Stage of cognitive impairment: Mild Dementia Severity Rating Scale (DSRS) : 11- changes in memory, speech, orientation to time, place, ability to make decisions, social activity, personal care, occ control of urination, doesnt drive Plan: Continue to think about planning for the future based on stages and care recommendations Continue [facility]. 4. Decision-makin level rating scale global clinician judgement: may have been done in [place] (Able to make own decisions, not able [...] olanzapine but indicated. Administration: Gets help from [facility] program, [facility] staff 7. Safety: Safety Assessment Guide: a. Is the patient still driving? no b. Is the patient taking medications as prescribed? yes - [facility] program c. Are there concerns about safety [...] involve PCP, Dr. Butler, children and from [facility] care proxy: Yes - HCP inovked by Dr Chambers, [facility] Molst: Yes Checklist reviewed Plan (Preferences and [...] has a great support system in place. [email or web address] Not available 05/08/2025 13:43:41 Plan of Treatment Reminders Order Date Submit Date Provider Last Modified By Organization Details Last Modified Time Details Appointments None record ed. Lab None record ed. Referral None record ed. Procedures None record ed. Surgeries None record ed. Imaging None record ed. Medication Orders None record ed. Patient TargetsNo targets recorded. Patient InstructionsNo instructions recorded. Reason for Referral None Reported. 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 Gene July [facility] [employer] 13:54:57 Basal cell carcinoma of face 758232080 Active 2024 Gene July [facility] [employer] [facility] 13:55:20 Essential hypertension 24376357 Active 2024 Gene July [facility] [employer] [facility] 13:55:36 Anxiety 47959754 Active 2024 Gene July [facility] [employer] [facility] 14:00:55 Cognitive function finding 559944537 Active 2024 Lexi Olmedo MD [address], [phone], [employer] 16:59:22 Major depression with psychotic features 304445669 Active 2024 Lexi Olmedo MD [address], [address], [employer] 16:59:26 Problem Notes None recorded. Medical Equipment [...] Available Not Available Vitals Date Recorded Body height Body mass index (BMI) Body weight Oxygen saturation Heart rate Systolic And Diastolic Provider Name and Address Organization Details Last Updated DateTime 5 160.02 cm 23 kg/m2 27634.0 1 g 96.02 % 65 /min 104/58 mm[Hg] [facility] 13:09:20 Social History None recorded. Functional Status None recorded. Mental Status None recorded. Family History Nothing Reported. Medical History No medical history recorded. Gynecological HistoryNo gynecological history recorded. Obstetrics History GPAL:G 0 P 0 0 0 0 Past Encounters Encounter ID Performer Location Encounter Start Date Encounter Closed Date Diagnosis/Indication Diagnosis SNOMED-CT Code Diagnosis ICD10 Code Diagnosis IMO Codes Diagnosis Note [id number] MD [facility] [address] [facility] [address] [place] [address] 05/08/2025 13:03:15 05/08/2025 21:17:32 Anxiety 85799182 F41.9 46221 Social Anxiet Plan:- Encourage gradual exposure to social situations - doing chair yoga which is great.- Discuss coping strategies for managing anxiety in social settings- Monitor impact of anxiety on daily activities and social interactio ns Major depr ession with psychotic features 276165776 F32.3 [id number] Assessment : Patient has a longstandi ng [...] pines as you are. Cognitive function finding 539293893 R41.89 7587226 as above Essential hypertension 19315774 I10 04172 Goal SBP ~ 120-130. Today, BP 104/58Woul d monitor and may want to lower amlodipine if still low when home. Health Concerns Section Related Observation LastModified by Organization Detai ls LastModified Time None Recorded Concern Status LastModified by Organization Details LastModified Time None Recorded Payers Encounter Date Sequence Insurance Name Policy Number Policy [place] Covered Member ID [place]o Member ID Guarantor Name 05/08/2025 1 [place]IC[place] [employer] Maribell Zayas [id number] Maribell Zayas 05/08/2025 2 [place] - [facility] SECURITY 65 PLAN (MEDICARE SUPPLEMENT) [id number] Maribell Zayas [id number] Maribell Zayas Notes Date Note Type Note Provider Name and Address Organization Details Recorded Time 05/08/2025 text/html ROS as noted in the HPI Since last visit, NPV 7.23.25 Maribell is here for CCP with from [facility]. Since last visit, has been going to [...] watch television. She continues to live at [facility] where staff assists with medications and housekeeping. She has a strong support system including Rufino and Vivien. She reports being pretty good at understanding medical issues and medications.Review of SystemsMusculoskele marita: Positive for feeling like leaning forward when walking, negative for falls.Neurological: Positive for fair memory (stable over last 3 months).Psychiatric : Positive for okay mood with ability to laugh a little. Lexi Olmedo MD [address] [place] [address], [phone], [facility] 05/08/2025 13:45:37 OBGyn Episode No OBEpisode recorded.
[2025-07-06] VITALS (7 sets, daily range): BP systolic 127–154; BP diastolic 64–84; PULSE 68–79; RESP 10–16; TEMP 36.4–36.8; O2SAT 95–96; BMI 23.0
--- NOTE | 2025-07-06 | ECG_ITS ---
Test Reason : CHECK QT Blood Pressure : */* mmHG Vent. Rate : 72 BPM Atrial Rate : 72 BPM P-R Int : 170 ms QRS Dur : 74 ms QT Int : 408 ms P-R-T Axes : 63 -13 35 degrees QTcB Int : 446 ms Normal sinus rhythm Normal ECG When compared with ECG of 09-Nov-2024 10:35, Nonspecific T wave abnormality now evident in Inferior leads Referred By: Mariann Campbell Electronically Signed By: Eriberto Beckwith
--- NOTE | 2025-07-06 08:23 | P.CONAN_ITS ---
HPI - Anesthesia Eval Consult details Narrative: ect PMFSH Active Problems Active Problems: All Active Problems Cognitive change (Acute) Parkinsonism (Acute) HLD (hyperlipidemia) (Acute) Parkinsonism (Acute) Dementia, vascular (Acute) Major depressive disorder, recurrent, severe with psychotic features (Acute) Abnormal finding on EKG (Acute) Past Medical History Medical History Cognitive change Parkinsonism Pre-op evaluation History of fracture of left ankle OCD (obsessive compulsive disorder) Major depressive disorder, recurrent severe without psychotic features S/P ECT (electroconvulsive therapy) Family History Family History Mother CHF (congestive heart failure) Family history of problems with anesthesia: No Surgical History Surgical History No history of previous surgery History of Problems with Anesthesia: No Social History Social History Household Members: None Housing: Apartment Housing Other:: Skilled Nursing community Do you presently have visiting nurse or other home services: Yes ([employer] [facility]) Patient Tobacco Use Status: Never used Tobacco e-Cigarette/Vaping Use: Never Used Advance Directives: No Advance Directives Information Provided: Yes service: No Sexual orientation: Straight/Heterosexual Meds Allergies Allergy/AdvReac Type Severity Reaction Status Date / Time No Known Allergies (No Known Allergy Verified 02/26/25 14:31 Allergies*) Home Medications ?Medication ?Instructions ?Recorded ?Confirmed ?Last Taken ?Type acetaminophen 500 mg tablet 500 mg PO TID PRN pain 11/09/24 Unknown History (Acetaminophen Extra Strength) olanzapine 2.5 mg tablet See Rx Instructions PO .COMP JAKE 06/28/25 06/28/25 Unknown History polyethylene glycol 3350 17 gram 17 g PO 3XW constipat ion 06/28/25 06/28/25 Unknown History oral powder packet (Miralax) Exam Height,Weight and Vital Signs: Height 5 ft 3 in Weight 58.967 kg Airway Mallampati Class: III TM Dist: >3cm Neck ROM: Limited Heart: rrr Lungs: cta Assessment and Plan Assessment Anesthesia Assessment: Anesthesia Plan Discussed and Chart Reviewed Final Anesthetic Review Family History of Problems with Anesthesia: No History of Problems with Anesthesia: No NPO: Yes ASA Class: III Final Preanesthetic Review: No Changes in Pt Med Stat, Meds/Allgs Chart Reviewed, Consent Obtained/Reviewed and Anes Risks/Benef Reviewed Patient Risk: Intermediate Procedure Risk: Low Anesthetic Plan Anesthetic Plan: GA and Agree w/ Assess. and Plan Disposition: Standard PACU
[2025-07-06 09:05] LABS: MANUAL DIFF FLAG NO
[2025-07-06 09:08] LABS: Hematocrit 37.2 % (37.0-47.0); Hemoglobin 12.7 g/dl (12.0-16.0); Imm Gran Abs Auto 0.02 X10*3/uL (0.00-0.03); Imm Gran Pct Auto 0.3 % (0.0-0.4); Lymphocytes Absolute Auto 1.6 X10*3/uL (1.2-4.9); Mean Corpuscular HGB Conc 34.1 g/dl (31.0-35.0); Mean Corpuscular Hemoglobin 31.6 pg (27.0-33.0); Mean Corpuscular Volume 92.5 fL (80.0-98.0); NRBC Abs Auto 0.000 X10*3/uL (0.0-0.012); NRBC Pct Auto 0.0 /100WBC (0.0-0.2); Platelet Count 179 X10*3/uL (160-400); Red Blood Count 4.02 X10*6/uL (4.20-5.50); White Blood Count 6.7 X10*3/uL (4.8-10.8)
--- NOTE | 2025-07-06 09:22 | MHC.SHP ---
Pre-Procedural Eval Section A - 24 Hr Update-Section A only Date of Service: 07/06/25 The patient is an INPATIENT: No Changes since office visit: No Cold of Flu in the past 2 weeks, No New Medical Problems, No Changes in Medication and No Patient answered all questions The patient has been examined within 24 hours of the surgical procedure. The History & Physical has been completed within 30 days and I have reviewed it.: Yes Section B - Complete if H&P > 30 days Chief Complaint: Major depressive disorder, recurrent, severe with Allergies: Allergies Allergy/AdvReac Type Severity Reaction Status Date / Time No Known Allergies (No Known Allergy Verified 02/26/25 14:31 Allergies*) Plan I have reviewed the history and physical and performed a pertinent physical examination on my patient. No changes have occurred unless specified. Time Spent With Patient Time: Total time managing care of this patient today ____ minutes.
--- NOTE | 2025-07-06 09:24 | HO.ECTPROC ---
ECT Procedure Note Diagnosis/Treatment Date of Service: 07/06/25 Diagnosis: Major Depressive Disorder Previous ECT Date: 06/08/25 Treatment: Maintenance Interval Clinical Notes: I don't feel good . Mood is low but affect is reactive, brightens up appropriately. endorses passive wish, denies plan/intent to harm herself. She doesn't recall any issues with last tx. Time: Total time managing care of this patient today ____ minutes. ECT Settings Device: THYMATRON DGx Electrode Placement: Right Unilateral Program/Pulse Width: 0.25 Energy Percent: 100 (titrated today from 70% ) Seizure Duration By EEG (in seconds): 59 By Motor Observation (in seconds): 29 Medications Administration General Anesthetic: Etomidate (14) Muscle Relaxant: Succinylcholine (80) Ancillary Medications Miscillaneous Medications: Propofol (30 mg- after ) Airway Management Airway Management: Bag Mask Ventilation Treatment Recommendations No Changes Recommended: No change Pt Tolerated Procedure w/o Issue: Yes
[2025-07-06 09:25] LABS: Anion Gap 10 (12-20); Blood Urea Nitrogen 19 mg/dL (9-16); Calcium 8.8 mg/dL (8.4-10.2); Carbon Dioxide 27 mmol/L (22-29); Chloride 105 mmol/L (96-108); Creatinine Clr Calc Pharmacy 36.0; Estimated Glomerular Filt Rate 54; Potassium 3.9 mmol/L (3.3-5.1); Sodium 138 mmol/L (135-145)
== END 2025-07-06 11:02 | disposition home or self-care (01) ==
PROVIDERS: Psychiatry & Neurology Psychiatry; PCP Internal Medicine; Visit Provider Psychiatry & Neurology Psychiatry
PROC: (CPT 90870; principal; 2025-07-06 09:00)
DX: F32.2 Major depressive disorder, single episode, severe without psychotic features (principal); N18.30 Chronic kidney disease, stage 3 unspecified; I12.9 Hypertensive chronic kidney disease with stage 1 through stage 4 chronic kidney disease, or unspecified chronic kidney disease; F03.90 Unspecified dementia, unspecified severity, without behavioral disturbance, psychotic disturbance, mood disturbance, and anxiety; G20.C Parkinsonism, unspecified; R60.0 Localized edema; E78.5 Hyperlipidemia, unspecified; Z79.82 Long term (current) use of aspirin; Z79.899 Other long term (current) drug therapy
CPT/HCPCS: 36415; 80048; 85025; 90870; 93005; J0330; J2704

== ENCOUNTER → 2025-07-06 07:49 | Outpatient (BNV) | payer MEDICARE, SELFPAY | PROVIDERS: PCP Internal Medicine; Visit Provider Psychiatry & Neurology Psychiatry | DX: F33.2 Major depressive disorder, recurrent severe without psychotic features (principal) | CPT/HCPCS: 90870 ==

== ENCOUNTER → 2025-07-06 08:42 | Outpatient (BNV) | payer MEDICARE, SELFPAY | PROVIDERS: PCP Internal Medicine; Visit Provider Internal Medicine Cardiovascular Disease | DX: Z13.6 Encounter for screening for cardiovascular disorders (principal) | CPT/HCPCS: 93010 ==